=== PATIENT | male | born 1955 | race Caucasian/White ===

== ENCOUNTER → 2017-07-24 14:23 | Outpatient (CLI) | payer BC, SELFPAY ==
--- NOTE | 2017-07-24 14:29 | RAD_ITS ---
STUDY: X-RAY - RIGHT KNEE REASON FOR EXAM: Swelling, right knee strain. TECHNIQUE: 4 view(s) of the knee. COMPARISON: None. FINDINGS: Normal visualized distal femur. Normal visualized proximal tibia and fibula. Normal proximal tibiofibular articulation. There is mild joint space narrowing of the medial femorotibial compartment. Normal lateral femorotibial compartment. Normal patellofemoral articulation. There is a probable joint effusion. There is an enthesophyte at the superior pole of the patella. There are small soft tissue calcifications at the anterior aspect of the knee. There is vascular calcification. RAD/Knee 4 or More Views IMPRESSION: Mild arthrosis of the medial femorotibial compartment. Probable joint effusion. Electronically Signed: Satinder Uriostegui MD at 15:06 EDT Tel , Service support ,
== END ==
PROVIDERS: Family Provider Nurse Practitioner; PCP Nurse Practitioner; Visit Provider Nurse Practitioner
DX: M25.561 Pain in right knee (principal)
CPT/HCPCS: 73564

== ENCOUNTER → 2017-08-10 14:07 | Outpatient (CLI) | payer BC, SELFPAY ==
[2017-08-10 14:35] LABS: Potassium 3.7 mmol/L (3.5-5.1)
== END ==
PROVIDERS: Visit Provider Nurse Practitioner Gerontology
DX: E87.5 Hyperkalemia (principal)
CPT/HCPCS: 84132

== ENCOUNTER → 2019-08-27 12:34 | Outpatient (CLI) | payer BC, SELFPAY ==
--- NOTE | 2019-08-27 12:49 | RAD_ITS ---
STUDY: X-RAY - LEFT HAND REASON FOR EXAM: Male, 64 years old. bilateral hand pain TECHNIQUE: 3 view(s) of the hand. COMPARISON: None. FINDINGS: Normal radiocarpal articulation. Normal distal radioulnar joint. Normal visualized carpal bones. Normal carpal articulations Normal carpometacarpal articulation of the thumb. Normal second through fifth carpometacarpal joints. Normal metacarpi. Normal metacarpophalangeal joint of the thumb. Normal interphalangeal joint of the thumb. Normal proximal and distal phalanges of the thumb. Normal metacarpophalangeal joints of the second through fifth fingers. Normal proximal and distal interphalangeal joints of the second through fifth fingers. Normal phalanges of the second through fifth fingers. The soft tissue structures are unremarkable. RAD/Hand Min 3 Views IMPRESSION: Normal x-ray examination of the hand. Electronically Signed: Chance Knutson MD at 2:54 EDT , Service support ,
--- NOTE | 2019-08-27 12:49 | RAD_ITS ---
STUDY: X-RAY - RIGHT HAND REASON FOR EXAM: Male, 64 years old. bilateral hand pain TECHNIQUE: 3 view(s) of the hand. COMPARISON: None. FINDINGS: Normal radiocarpal articulation. Normal distal radioulnar joint. Normal visualized carpal bones. Normal carpal articulations Normal carpometacarpal articulation of the thumb. Normal second through fifth carpometacarpal joints. Normal metacarpi. Normal metacarpophalangeal joint of the thumb. Normal interphalangeal joint of the thumb. Normal proximal and distal phalanges of the thumb. Normal metacarpophalangeal joints of the second through fifth fingers. Normal proximal and distal interphalangeal joints of the second through fifth fingers. Normal phalanges of the second through fifth fingers. The soft tissue structures are unremarkable. RAD/Hand Min 3 Views IMPRESSION: Normal x-ray examination of the hand. Electronically Signed: Chance Knutson MD at 2:05 EDT , Service support ,
== END ==
PROVIDERS: PCP Nurse Practitioner; Referring Provider Nurse Practitioner; Visit Provider Nurse Practitioner
DX: I10 Essential (primary) hypertension (principal)
CPT/HCPCS: 73130

== ENCOUNTER → 2021-01-19 08:25 | Outpatient (CLI) | payer BC, SELFPAY ==
--- NOTE | 2021-01-19 08:28 | CT_ITS ---
STUDY: LOW DOSE CT LUNG CANCER SCREENING REASON FOR EXAM: Male, 65 years old. FORMER SMOKER. Patient smoked 1 pack per day for 35 years. RADIATION DOSAGE (If Supplied By Facility): CTDIvol = ( 3.02 ) mGy, DLP = ( 102.69 ) mGycm TECHNIQUE: No contrast was administered. Low dose technique was utilized (average mAS-38 and kVp 120). 1.25 mm axial source images with a slice interval of 1.25-mm were reconstructed in lung windows. 2.5 mm axial source images with a slice interval of 2.5-mm were reconstructed in lung windows. 5.0 mm axial source images with a slice interval of 5.0-mm were reconstructed in soft tissue windows. Nodule measured using lung windows on PACS and/or independent workstation with automated measurement of minimum and maximum diameter. Nodule measurement reported as average diameter rounded to the nearest whole number. Growth is defined as an increase ins size of greater than 1.5 mm. COMPARISON: None. NODULES: No suspicious nodules are seen. Emphysema: Mild degree of increased markings in the peripheral anterior lateral aspect of the left lower lobe suggestive of scarring. Endobronchial lesion: None Aorta: Unremarkable. Coronary arteries: Coronary artery calcification. Heart: Unremarkable Pulmonary artery: Unremarkable Mediastinal nodes: Small benign-appearing mediastinal lymph nodes. Other chest and abdominal findings: Degenerative changes of the thoracic spine. CT/Low Dose CT Lung Screening IMPRESSION: Lung-RADS category 2 - Continue annual screening with LDCT in 12 months. IMPORTANT NOTES FOR USE: ACR Lung-RADS Version 1.1 Assessment Categories Release Date: 2018 Category: Coded 0-4 bases on nodule(s) with highest degree of suspicion. Negative screen is defined as categories 1 and 2; a positive screen is defined as categories 3 and 4. Category 3 and 4A nodules that are unchanged on interval CT should be coded as category 2, and individuals returned to screening in 12 months. Category 4X: Category 3 or 4 nodules with additional imaging findings that increase the suspicion of lung cancer, such as spiculation, GGN that doubles in size in 1 year, enlarged lymph notes, etc. Category Modifiers: S (significant finding unrelated to lung cancer) Electronically Signed: Deshawn Chavez MD at 13:25 EDT , Service support ,
== END ==
PROVIDERS: PCP Internal Medicine; Referring Provider Internal Medicine; Visit Provider Internal Medicine
DX: Z87.891 Personal history of nicotine dependence (principal)
CPT/HCPCS: 71271

== ENCOUNTER 2021-03-10 17:21 | Outpatient (CLI) | payer BC, SELFPAY ==
[2021-03-10 17:43] VITALS: BP 130/79; PULSE 80; RESP 16; O2SAT 99; BMI 28.8
[2021-03-10] MEDS: 0.9% Saline Lock 10 ML Syringe IV (17:51)
[2021-03-10 18:26] VITALS: BP 141/75; PULSE 72; RESP 16; TEMP 37.2; O2SAT 95
[2021-03-10 19:17] VITALS: BP 143/72; PULSE 70; RESP 16; TEMP 37; O2SAT 95
== END 2021-03-10 19:28 | disposition home or self-care (01) ==
LOC: MS3OUT 17:21 → MS3 17:22
PROVIDERS: PCP Internal Medicine; Referring Provider Nurse Practitioner Adult Health; Visit Provider Nurse Practitioner Adult Health
DX: Z23 Encounter for immunization (principal); U07.1 COVID-19
CPT/HCPCS: J7050; M0245; Q0245; A4216

== ENCOUNTER 2021-05-11 15:06 | Outpatient (CLI) | payer BC, SELFPAY ==
--- NOTE | 2021-05-11 15:12 | RAD_ITS ---
STUDY: X-RAY CHEST REASON FOR EXAM: Male, 66 years old. CHEST PAIN COUGH TECHNIQUE: XR Chest 2 Views COMPARISON: Prior comparison studies are not available for review at this time. FINDINGS: There is no demonstrated pleural abnormality. Normal size heart. Normal mediastinum and leonard. Normal visualized pulmonary arteries. There is atherosclerotic calcification of the aortic arch with tortuosity. There are diffuse degenerative changes of the visualized thoracic spine. There is degenerative osteoarthritis of the bilateral shoulders. There is no demonstrated abnormality of the visualized soft tissue structures of the upper abdomen. RAD/Chest PA and Lateral IMPRESSION: There are no acute findings. Electronically Signed: Cornelius Paez MD at 15:40 EST ,
== END 2021-05-11 23:59 | disposition home or self-care (01) ==
LOC: MTRAD 15:08
PROVIDERS: PCP Internal Medicine; Referring Provider Internal Medicine; Visit Provider Internal Medicine
DX: R05.9 Cough, unspecified (principal)
CPT/HCPCS: 71046

== ENCOUNTER 2022-06-06 15:05 | Outpatient (CLI) | payer MEDICARE, OTHER, SELFPAY ==
--- NOTE | 2022-06-06 15:10 | CT_ITS ---
STUDY: CTA CHEST REASON FOR EXAM: Male, 67 years old. Elevated ddimer. Upper respiratory tract infection. RADIATION DOSAGE (If Supplied By Facility): CTDIvol = ( 8.45 ) mGy, DLP = ( 434.19 ) mGycm TECHNIQUE: The examination was performed with the intravenous administration of IV 100mL Isovue-370. Post-processing of the angiographic images was performed, with multiplanar reformation and 3D reconstruction. Individualized dose optimization techniques were used for this CT. COMPARISON: None. FINDINGS: Normal enhancement of the main pulmonary artery and right and left pulmonary arteries. Normal enhancement of the bilateral peripheral pulmonary arteries. There is no demonstrated pulmonary embolism. There is atherosclerotic calcification of the aortic arch with tortuosity. There is no demonstrated aortic dissection. There are calcifications of the coronary arteries. There are visualized mediastinal lymph nodes, which are within normal size limits, and with normal morphology. Normal hilar regions. Normal visualized trachea and bronchi. The lungs are well expanded. Normal pulmonary parenchyma. Normal pleura. Normal chest wall structures. There are degenerative changes of thoracic spine. Normal visualized upper abdomen. CT/CTA Chest W/WO Contrast IMPRESSION: No evidence of pulmonary embolism. Electronically Signed: Deshawn Chavez MD at 15:39 EDT ,
[2022-06-06 15:41] LABS: CREATININE FINGERSTICK 1.2 mg/dL (0.70-1.30); EGFR FINGERSTICK > 60.0000 mL/min (>60)
== END 2022-06-06 23:59 | disposition home or self-care (01) ==
PROVIDERS: PCP Internal Medicine; Visit Provider Internal Medicine
DX: R79.89 Other specified abnormal findings of blood chemistry (principal); R07.9 Chest pain, unspecified; I25.10 Atherosclerotic heart disease of native coronary artery without angina pectoris
CPT/HCPCS: 71275; 84484; 85379; Q9967

== ENCOUNTER → 2022-06-06 | Outpatient (CLI) | payer MEDICARE, OTHER, SELFPAY ==
[2022-06-06 12:20] LABS: Troponin-I HS 4 pg/mL (3.0-78.0)
[2022-06-06 14:36] LABS: D-Dimer Quantitative (DVT/PE) 0.73 FEU/ug/m (0.27-0.49)
== END | disposition home or self-care (01) ==
PROVIDERS: PCP Internal Medicine; Referring Provider Internal Medicine; Visit Provider Internal Medicine
DX: R07.9 Chest pain, unspecified (principal); I25.10 Atherosclerotic heart disease of native coronary artery without angina pectoris
CPT/HCPCS: 83880; 84484; 85379

== ENCOUNTER → 2022-11-24 | Outpatient (CLI) | payer MEDICARE, OTHER, SELFPAY ==
--- NOTE | 2022-11-25 09:38 | PFT ---
INTRODUCTION: The patient is a 67-year-old male who presents for pulmonary function studies secondary to a diagnosis of abnormal chest x-ray. Respiratory therapy reported good patient effort. Bronchodilators were used during testing. INTERPRETATION: Forced expiration spirometry demonstrates the presence of a mild large airways obstructive ventilatory defect. There was no significant response to aerosolized bronchodilators. Spirograms are of good quality and plateau gradually indicating slow emptying of the lungs. Body plethysmography was performed and revealed lung volumes to be within normal limits. Diffusing capacity by single breath CO was also within normal limits. IMPRESSION: Irreversible mild large airways obstructive ventilatory defect with preserved lung volumes and diffusing capacity.
== END | disposition home or self-care (01) ==
LOC: PSN 06:53
PROVIDERS: PCP Internal Medicine; Referring Provider Internal Medicine; Visit Provider Internal Medicine
DX: R93.89 Abnormal findings on diagnostic imaging of other specified body structures (principal)
CPT/HCPCS: 94060; 94726; 94729

== ENCOUNTER → 2023-06-14 | Outpatient (CLI) | payer MEDICARE, OTHER, SELFPAY ==
--- NOTE | 2023-06-14 06:48 | CT_ITS ---
STUDY: LOW DOSE CT LUNG CANCER SCREENING REASON FOR EXAM: Male, 68 years old. Former smoker. Patient smoked 2 packs per day for 40 years. RADIATION DOSAGE (If Supplied By Facility): CTDIvol = ( 4.02 ) mGy, DLP = ( 148.48 ) mGycm TECHNIQUE: No contrast was administered. Low dose technique was utilized (average mAS-38 and kVp 120). 1.25 mm axial source images with a slice interval of 1.25-mm were reconstructed in lung windows. 2.5 mm axial source images with a slice interval of 2.5-mm were reconstructed in lung windows. 5.0 mm axial source images with a slice interval of 5.0-mm were reconstructed in soft tissue windows. COMPARISON: Comparison is made with prior study January 19, 2021. NODULES: No suspicious nodules are seen. Emphysema: Mild degree of emphysematous changes. Endobronchial lesion: Unremarkable Aorta: Unremarkable CORONARY ARTERIES: Coronary artery calcification is seen. Heart: Unremarkable Pulmonary artery: Unremarkable Mediastinal nodes: Small benign-appearing mediastinal lymph nodes. Other chest and abdominal findings: CT/Low Dose CT Lung Screening IMPRESSION: Lung-RADS category 2 - Continue annual screening with LDCT in 12 months. IMPORTANT NOTES FOR USE: ACR Lung-RADS Version 1.1 Assessment Categories Release Date: 2018 Category: Coded 0-4 bases on nodule(s) with highest degree of suspicion. Negative screen is defined as categories 1 and 2; a positive screen is defined as categories 3 and 4. Category 3 and 4A nodules that are unchanged on interval CT should be coded as category 2, and individuals returned to screening in 12 months. Category 4X: Category 3 or 4 nodules with additional imaging findings that increase the suspicion of lung cancer, such as spiculation, GGN that doubles in size in 1 year, enlarged lymph notes, etc. Category Modifiers: S (significant finding unrelated to lung cancer) Electronically Signed: Deshawn Chavez MD at 14:38 EDT ,
== END | disposition home or self-care (01) ==
LOC: CT 06:48
PROVIDERS: PCP Internal Medicine; Referring Provider Internal Medicine; Visit Provider Internal Medicine
DX: Z87.891 Personal history of nicotine dependence (principal)
CPT/HCPCS: 71271

== ENCOUNTER 2023-12-15 09:07 | Emergency (ER) | payer MEDICARE, OTHER, SELFPAY ==
[2023-12-15] VITALS (7 sets, daily range): BP systolic 111–158; BP diastolic 61–83; PULSE 77–98; RESP 14–75; TEMP 36.4–36.6; O2SAT 93–100; BMI 30.2
--- NOTE | 2023-12-15 09:51 | EKG12_ITS ---
Test Reason : CP Blood Pressure : / mmHG Vent. Rate : 076 BPM Atrial Rate : 076 BPM P-R Int : 182 ms QRS Dur : 100 ms QT Int : 366 ms P-R-T Axes : 051 -17 017 degrees QTc Int : 411 ms Normal sinus rhythm with sinus arrhythmia Normal ECG Confirmed by LILI COWAN, RONNY ([id number]), metropolitan editor ANTONIO DUCKWOTRH ([id number]) on 12/19/2023 2:15:59 PM Referred By: BB Confirmed By:RONNY PEARSON MD
--- NOTE | 2023-12-15 10:01 | EDS_ITS ---
HPI History of Present Illness Chief Complaint: Chest Pain Informant: patient and spouse/S.O. Narrative Narrative: Patient woke up with chest tightness retrosternal maybe more to the left 2 or 3 hours prior to evaluation. States it hurts worse to take a deep breath. He is not really dyspneic. States he is having lower abdominal pain and nausea and vomiting as well. It is nonbloody. He states this happens several days ago and he was in [place], he was seen in the ER there and had a cardiac workup including several sets of cardiac enzymes that were negative, nitroglycerin made it better, but in the end he was sent home on famotidine and another GI medication. No history of heart problems but he has COPD not on home oxygen, he does not feel like he is having a flareup. He had a prior herniorrhaphy, no other abdominal surgeries in the past. [facility] Medical History (Updated 12/15/23 @ 13:[address] All Santillan MD) Hypercholesterolemia Atherosclerosis of [place] coronary artery Diabetes mellitus Benign prostatic hyperplasia Hypercalcemia Former smoker COPD (chronic obstructive pulmonary disease) BPPV (benign paroxysmal positional vertigo) Hearing loss in right ear Knee pain Shoulder pain HTN (hypertension) Home Medications ?Medication ?Instructions ?Recorded ?Last Taken ?Type amlodipine 10 mg tablet 10 mg PO DAILY 05/01/20 Unknown History hydrochlorothiazide 25 mg tablet 25 mg PO DAILY 05/01/20 Unknown History losartan 25 mg tablet 25 mg PO DAILY 05/01/20 Unknown History aspirin 81 mg tablet,delayed 81 mg PO DAILY 06/14/23 Unknown History release tamsulosin 0.4 mg capsule 0.4 mg PO DAILY 06/14/23 Unknown History famotidine 20 mg tablet (Acid 20 mg PO BID 12/13/23 Unknown History [employer]ment [employer] (famotidine)) fluticasone fur. 100 mcg-umeclid 1 inh inhalation Q24H 12/13/23 Unknown History 62.5 mcg-vilant 25 mcg inhalat.powder (Trelegy Ellipta) hydroxyzine pamoate 25 mg capsule 25 mg PO TID PRN 12/13/23 Unknown History pantoprazole 40 mg tablet,delayed 40 mg PO QDAY 12/13/23 Unknown History release rosuvastatin 10 mg tablet 10 mg PO QDAY 12/13/23 Unknown History amoxicillin 875 mg-potassium 875 mg PO Q12H #20 TABLETS 12/15/23 Unknown Rx clavulanate 125 mg tablet ondansetron 8 mg disintegrating 8 mg PO Q8H PRN nausea and 12/15/23 Unknown Rx tablet vomiting #15 tabs Allergy/AdvReac Type Severity Reaction Status Date / Time No Known Allergies Allergy Verified 06/30/23 09:56 Family History Other Alzheimers disease Cancer Multiple sclerosis Surgical History (Updated 12/15/23 @ 10:[address] All Santillan MD) History of herniorrhaphy History of back surgery Social History Smoking Status: Former smoker quit date: 03/20/06 ROS ROS ED Constitutional Constitutional ED: Denies chills or fever(s) Eyes Eyes: Denies change in vision or diplopia ENT ENT ED: Denies rhinorrhea or sore throat Cardiovascular Cardiovascular: Reports chest pain; Denies palpitations Respiratory/Chest Respiratory/Chest: Denies cough or dyspnea Gastrointestinal Gastrointestinal: Reports abdominal pain, nausea, vomiting and other Details: Decreasing bowel movements recently ; Denies diarrhea Genitourinary Genitourinary ED: Denies dysuria or hematuria Musculoskeletal Musculoskeletal: Denies back pain or neck pain Integumentary Denies abscess or rash Neurologic Neurologic: Denies headache(s), paresthesias or weakness Psychiatric Psychiatric: Denies anxiety or suicidal thoughts EXAM Physical Exam Const Vital Signs: 12/15/23 09:11 12/15/23 09:51 12/15/23 10:07 Temperature 97.5 F L Temperature Source Oral Pulse Rate 82 79 Respiratory Rate 18 14 Blood Pressure 158/82 H 138/83 H Blood Pressure Mean 107 101 Pulse Ox 100 98 Oxygen Delivery Method Room Air Room Air Room Air 12/15/23 11:00 12/15/23 12:00 12/15/23 13:00 Temperature Temperature Source Pulse Rate 77 78 77 Respiratory Rate 14 14 14 Blood Pressure 133/73 H 111/64 122/61 H Blood Pressure Mean 93 79 81 Pulse Ox 93 93 94 Oxygen Delivery Method Room Air Room Air Positive well nourished and well developed Constitutional Narrative: Actively vomiting nonbilious clear fluid couple times during exam. NAD. General Appearance ED: well developed and NAD HEENT Reports moist mucous membranes normocephalic and atraumatic Eyes PERRL and EOMs intact bilaterally Neck full ROM and supple Chest Wall inspection of chest normal and palpation of chest normal Resp normal respiratory effort and clear to auscultation bilaterally Cardio regular rate, regular rhythm and no murmurs Rate: Negative for tachycardic GI non-distended GI Narrative: Hypoactive bowel sounds. Tender in the left lower quadrant no guarding or rebound. Otherwise benign abdomen. Palpation: soft Back/Spine no CVA tenderness General Back: other FROM Extremity normal to inspection General Extremety ED: Negative for edema, pulses abnormal or tenderness General Extremity: Negative for edema or pulses abnormal Neuro oriented x3, CN's II-XII intact bilaterally and no sensory deficits noted Sensorium / Orientation: awake and alert Motor Exam: strength 5/5 throughout Skin no rashes or lesions noted and no wounds MDM MDM MDM Narrative Medical decision making narrative: I also am suspicious of a GI etiology, spouse and the patient concerned about a bowel obstruction which she has never had before. I think it is certainly reasonable to evaluate for that to obtain a CT, but prior to sending him to CT with IV contrast obtaining a D-dimer to evaluate whether I need a CTA of the chest or not. His EKG is normal. His D-dimer returned normal, obviating the need for CT angiography of the chest. I did do a 1 view chest x-ray which is normal on my interpretation showing no pneumonia, radiology in agreement. He does not have a high white blood count he has a slight trend toward leftward shift no significant bandemia. CT of the abdomen pelvis was performed with IV contrast I reviewed the images and report which I agree with, it is consistent with uncomplicated sigmoid diverticulitis. There is no perforation or abscess. No bowel obstruction. Patient is doing much better after IV fluids, Zofran, and a GI cocktail. We have 2 separate troponin measurements that are both in the single digits, well within normal limits and a normal EKG, given that I do think his discomfort was probably esophageal in etiology. He is feeling well, I offered admission but he declines and is comfortable going home. Will start him on Augmentin, I replaced him of his potassium, and I will have him follow-up with his outpatient physician. States he already has an appointment early December. Lab Data Attestation: I reviewed the patient's lab results. Labs: Laboratory Results - last 24 hr 12/15/23 12/15/23 10:00 12:18 WBC 10.3 RBC 5.08 Hgb 14.9 Hct 43.5 MCV 85.6 MCH 29.3 MCHC 34.3 RDW Std Deviation 41.7 RDW Coeff of Prema 13.3 Plt Count 256 MPV 10.2 Immature Gran % (Auto) 0.400 Neut % (Auto) 84.0 H Lymph % (Auto) 10.1 L [place] % (Auto) 5.0 Eos % (Auto) 0.1 Baso % (Auto) 0.4 Absolute Neuts (auto) 8.6 H Absolute Lymphs (auto) 1.04 Nucleated RBC % 0 D-Dimer Quant (PE/DVT) 0.47 Sodium 136 Potassium 3.0 L Chloride 101 Carbon Dioxide 25.0 Anion Gap 10 BUN 21 H Creatinine 0.99 Estim Creat Clear Calc 79.02 Est GFR (MDRD) Af Amer 97 Est GFR (MDRD) Non-Af 80 BUN/Creatinine Ratio 21.2 H Glucose 132 H Calcium 9.8 Troponin I High Sens 6 6 Radiography Diagnostic Testing: Clinical Impression(s) from Imaging Studies Chest X-Ray 12/15/23 10:10 IMPRESSION: No acute abnormality is seen. Electronically Signed: Deshawn Chavez MD at 10:32 EDT , Abdomen/Pelvis CT 12/15/23 10:44 IMPRESSION: Acute sigmoid diverticulitis without evidence of abscess or perforation. Electronically Signed: Stef Ellington MD at 11:50 EDT , Rhythm Strip Rhythm Strip: Sinus Rhythm Rate: 80 Ectopy: None EKG Initial EKG: Attestation: I personally reviewed and interpreted this EKG as follows: Interpretation: Sinus Rhythm and No Acute Injury Pattern Discharge Plan Triage Chief Complaint: Chest Pain ED Provider: All Santillan Dx/Rx/DC Orders Clinical Impression: Diverticulitis of sigmoid colon, Chest pain, non-cardiac Instructions: Diverticulitis Dc Prescriptions: New ondansetron 8 mg tablet,disintegrating 8 mg PO Q8H PRN (Reason: nausea and vomiting) Qty: 15 0RF amoxicillin-pot clavulanate 875-125 mg tablet 875 mg PO Q12H Qty: 20 0RF No Action amlodipine 10 mg tablet 10 mg PO DAILY Patient Comments: Take 1 tablet by mouth daily losartan 25 mg tablet 25 mg PO DAILY hydrochlorothiazide 25 mg tablet 25 mg PO DAILY tamsulosin 0.4 mg capsule 0.4 mg PO DAILY aspirin 81 mg tablet,delayed release (DR/EC) 81 mg PO DAILY rosuvastatin 10 mg tablet 10 mg PO QDAY Patient Comments: TAKE 1 TABLET BY MOUTH DAILY AT BEDTIME Trelegy Ellipta 100-62.5-25 mcg blister with device 1 inh inhalation Q24H pantoprazole 40 mg tablet,delayed release (DR/EC) 40 mg PO QDAY hydroxyzine pamoate 25 mg capsule 25 mg PO TID PRN famotidine [Acid Surgical [employer]ment [employer]itter (famotidine)] 20 mg tablet 20 mg PO BID Primary Care Provider: Diana Roca Referrals: Diana Roca DO [Primary Care Provider] - Keep Vince appointment Print Language: Khmer Disposition Disposition: Home, Self Care
[2023-12-15] MEDS: 0.9% Normal Saline (1000mL) 1,000 ML 999 ML IV (10:03)
[2023-12-15] MEDS: Morphine 4 MG/ML Syringe IV (10:03)
[2023-12-15] MEDS: Lidocaine 2% Viscous15 ML UDC 15 ML PO (10:03)
[2023-12-15] MEDS: Mag Hydrox/Al Hydrox/Simeth 30 ML UDC PO (10:03)
[2023-12-15] MEDS: Ondansetron 4 MG/2 ML Vial IV (10:03)
--- NOTE | 2023-12-15 10:10 | RAD_ITS ---
STUDY: X-RAY CHEST REASON FOR EXAM: Male, 68 years old. Chest pain TECHNIQUE: Single AP portable view of the chest. COMPARISON: Comparison is made with prior study June 06, 2022. FINDINGS: EKG electrodes are seen. The lungs are clear and expanded. There is no demonstrated pleural abnormality. Normal size heart. Normal mediastinum and leonard. Normal visualized pulmonary arteries. There is atherosclerotic tortuosity of the aortic arch and descending thoracic aorta. There are diffuse degenerative changes of the visualized thoracic spine. Normal visualized ribs, clavicles, and shoulders. There is no demonstrated abnormality of the visualized soft tissue structures of the upper abdomen. RAD/Chest 1 View (Portable) IMPRESSION: No acute abnormality is seen. Electronically Signed: Deshawn Chavez MD at 10:32 EDT ,
[2023-12-15 10:12] LABS: Absolute Lymphocyte Count 1.04 X10^3/uL (0.83-4.51); Absolute Neutrophil Count 8.6 X10^3/uL (2.0-7.7); Basophil# 0.04 X10^3/uL; Basophil% 0.4 % (0-1); Eosinophil# 0.01 X10^3/uL; Eosinophils% 0.1 % (0-5); Hematocrit 43.5 % (40-54); Hemoglobin 14.9 g/dL (13.0-16.5); Lymphocyte # 1.04 X10^3/ul (0.83-4.51); Lymphocyte % 10.1 % (19-41); Mean Corp Hgb Conc 34.3 g/dL (32-36); Mean Corpuscular Hgb 29.3 pg (27.0-32.0); Mean Corpuscular Volume 85.6 fL (80-94); Mean Platelet Vol. 10.2 fl (6.2-12.0); Monocyte# 0.51 X10^3/uL; NRBC Flagged by Analyzer 0 % (0-5); Neutrophil # 8.64 X10^3/uL (2.7-7.7); Platelet Count 256 K/mm3 (150-450); RBC Distribution Width CV 13.3 % (11.6-14.6); RBC Distribution Width SD 41.7 fl (35.1-43.9); Red Blood Count 5.08 M/mm3 (4.6-6.2); White Blood Count 10.3 K/mm3 (4.4-11.0)
[2023-12-15 10:27] LABS: D-Dimer Quantitative (DVT/PE) 0.47 FEU/ug/m (0.27-0.49)
[2023-12-15 10:36] LABS: Anion Gap 10 (5-15); BUN 21 mg/dL (7-18); BUN/Creat Ratio 21.2 RATIO (10-20); Calcium,Total 9.8 mg/dL (8.5-10.1); Chloride 101 mmol/L (98-107); Creatinine, Serum 0.99 mg/dL (0.70-1.30); EST Glomerular Filtration Rate 80 mL/min (>60); Est Glom Filt Rate - Afr Amer 97 mL/min (>60); Estimated Creatinine Clearance 79.02 ml/min; Glucose 132 mg/dL (74-106); Sodium Level 136 mmol/L (136-145); Troponin-I HS (w/2H Reflex) 6 pg/mL (3.0-78.0)
--- NOTE | 2023-12-15 10:44 | CT_ITS ---
EXAM: CT ABDOMEN AND PELVIS WITH INTRAVENOUS CONTRAST CLINICAL INDICATION: LLQ pain, n/v TECHNIQUE: Helically acquired images were obtained of the abdomen and pelvis with intravenous contrast. This CT exam was performed using one or more of the following dose reduction techniques: automated exposure control, adjustment of the mA and/or kV according to patient size, and/or use of iterative reconstruction technique. CONTRAST: IV 100mL Isovue-300 COMPARISON: No relevant prior studies available. FINDINGS: LOWER THORAX: Normal. Lung bases are clear. No cardiomegaly. No pericardial effusion. ABDOMEN: LIVER: Normal. Homogeneous. No focal mass. GALLBLADDER AND BILE DUCTS: Normal. No calcified gallstones. No gallbladder distention or wall edema. No intra- or extrahepatic biliary ductal dilation. PANCREAS: Normal. No focal cystic or solid mass. SPLEEN: Normal. Normal size without focal cystic or solid mass. ADRENALS: Normal. No nodules. KIDNEYS AND URETERS: Normal. Normal renal size and position. No hydronephrosis. STOMACH AND BOWEL: There is mild wall thickening of the sigmoid colon associated with adjacent fat stranding consistent with acute diverticulitis. No evidence of abscess or perforation. PELVIS: APPENDIX: Appendix is visualized and normal in appearance. BLADDER: Normal. REPRODUCTIVE: Unremarkable as visualized. No mass. ABDOMEN and PELVIS: INTRAPERITONEAL SPACE: Normal. No ascites or other fluid collection. No free air. BONES/JOINTS: No suspicious lytic or blastic abnormality. SOFT TISSUES: Normal. No discrete abdominal or pelvic wall hernia. VASCULATURE: Normal. Abdominal aorta is non-dilated. LYMPH NODES: Normal. No enlarged lymph nodes. CT/Abdomen/Pelvis W IV Cont ONLY IMPRESSION: Acute sigmoid diverticulitis without evidence of abscess or perforation. Electronically Signed: Stef Ellington MD at 11:50 EDT ,
[2023-12-15 12:08] LABS: Reflex Troponin-HS? (from REC) Y
[2023-12-15 12:43] LABS: Troponin-I HS 6 pg/mL (3.0-78.0)
[2023-12-15] MEDS: Amox/Clavulanate 875 MG Tablet PO (13:15)
[2023-12-15] MEDS: Potassium Chloride 10mEq/100mL 10 MEQ/100 ML IV.SOLN. 100 MEQ IV BOLUS (13:16)
== END 2023-12-15 14:25 | disposition home or self-care (01) ==
PROVIDERS: Emergency Provider Emergency Medicine; PCP Internal Medicine; Visit Provider Emergency Medicine
DX: K57.32 Diverticulitis of large intestine without perforation or abscess without bleeding (principal); J44.9 Chronic obstructive pulmonary disease, unspecified; E11.9 Type 2 diabetes mellitus without complications; R07.89 Other chest pain; E78.00 Pure hypercholesterolemia, unspecified; I10 Essential (primary) hypertension; I25.10 Atherosclerotic heart disease of native coronary artery without angina pectoris; Z87.891 Personal history of nicotine dependence; Z79.899 Other long term (current) drug therapy; Z79.82 Long term (current) use of aspirin; N40.0 Benign prostatic hyperplasia without lower urinary tract symptoms
CPT/HCPCS: 71045; 74177; 80048; 84484; 85025; 85379; 93005; 96361; 96365; 96375; 99284; J7030; Q9967; A4216; J2405

== ENCOUNTER → 2024-06-25 | Outpatient (CLI) | payer MEDICARE, OTHER, SELFPAY ==
[2024-06-25 09:37] LABS: Absolute Lymphocyte Count 1.98 X10^3/uL (0.83-4.51); Absolute Neutrophil Count 3.9 X10^3/uL (2.0-7.7); Basophil# 0.06 X10^3/uL; Basophil% 0.9 % (0-1); Eosinophil# 0.11 X10^3/uL; Eosinophils% 1.7 % (0-5); Hematocrit 47.6 % (40-54); Hemoglobin 16.4 g/dL (13.0-16.5); Lymphocyte # 1.98 X10^3/ul (0.83-4.51); Lymphocyte % 29.8 % (19-41); Mean Corp Hgb Conc 34.5 g/dL (32-36); Mean Corpuscular Hgb 30.3 pg (27.0-32.0); Mean Corpuscular Volume 87.8 fL (80-94); Mean Platelet Vol. 10.1 fl (6.2-12.0); Monocyte# 0.55 X10^3/uL; Monocyte% 8.3 % (0-10); NRBC Flagged by Analyzer 0 % (0-5); Neutrophil # 3.92 X10^3/uL (2.7-7.7); Platelet Count 298 K/mm3 (150-450); RBC Distribution Width CV 13.2 % (11.6-14.6); RBC Distribution Width SD 42.8 fl (35.1-43.9); Red Blood Count 5.42 M/mm3 (4.6-6.2); White Blood Count 6.6 K/mm3 (4.4-11.0)
[2024-06-25 11:22] LABS: ALB/GLOB Ratio 1.3 RATIO (0.9-2.4); AST(SGOT) 23 U/L (<=37); Alanine Aminotransfer ALT/SGPT 17 U/L (<=46); Albumin, Serum 4.6 g/dL (3.4-4.8); Alkaline Phosphatase 68 U/L (40-129); Anion Gap 14 (5-15); BUN 16 mg/dL (4-19); BUN/Creat Ratio 14.8 RATIO (10-20); Calcium,Total 9.8 mg/dL (7.6-11.0); Carbon Dioxide 24.5 mmol/L (21.0-32.0); Chloride 101 mmol/L (98-108); Cholesterol 221 mg/dL (<=200); EST Glomerular Filtration Rate 73 (>60); Globulin 3.4 g/dL (2.2-4.2); Glucose 113 mg/dL (70-99); High Density Lipoprotein 69 mg/dL; Low Density Lipoprotein Calc. 137 mg/dL; Protein, Total 7.9 g/dL (5.9-8.4); Sodium Level 139 mmol/L (133-145); Total Bilirubin 0.42 mg/dL (0.00-1.30); Triglycerides 78 mg/dL; Very Low Density Lipoprotein 16 mg/dL (5-40); cholesterol:hdl ratio screen 3.21
== END | disposition home or self-care (01) ==
LOC: LAB 08:49
PROVIDERS: PCP Internal Medicine; Referring Provider Nurse Practitioner Gerontology; Visit Provider Nurse Practitioner Gerontology
DX: E78.00 Pure hypercholesterolemia, unspecified (principal); R53.83 Other fatigue; I10 Essential (primary) hypertension
CPT/HCPCS: 36415; 80053; 80061; 84443; 85025

== ENCOUNTER 2024-09-16 11:10 | Emergency (ER) | payer MEDICARE, OTHER, SELFPAY ==
[2024-09-16 11:11] VITALS: BP 162/82; PULSE 72; RESP 18; TEMP 36.4; O2SAT 100; BMI 30.9
--- NOTE | 2024-09-16 11:22 | CT_ITS ---
PROCEDURE: ABDOMEN/PELVIS W IV CONT ONLY 09/16/2024 REASON FOR EXAM: LEFT LOWER QUADRANT ABDOMINAL PAIN TECHNIQUE: ABDOMEN/PELVIS W IV CONT ONLY Coronal and Sagittal reconstruction series were provided. CONTRAST: 100 cc Isovue 300 One or more dose reduction techniques were used (e.g., Automated exposure control, adjustment of the mA and/or kV according to patient size, use of iterative reconstruction technique. RADIATION DOSE SUMMARY: DLP: 1088.21 mGycm COMPARISON: December 15, 2023 FINDINGS: Lung bases: Clear Liver: Unremarkable Gallbladder: Unremarkable Spleen: Unremarkable Pancreas: Unremarkable Adrenals: Unremarkable Kidneys: Unremarkable Bladder: Reproductive Organs: The bladder is not distended. There is circumferential bladder wall thickening to 0.6 cm, which may be partly secondary to lack of distention. The prostate has a nodular appearance with calcifications noted. A hydrocele is visible in the scrotum on the right and left. Bowel: The small bowel loops are nondistended. There is diverticulosis of the distal descending and sigmoid colon with no definite acute diverticulitis. Appendix: The appendix is normal in appearance. Lymph nodes: There is no pathologic adenopathy by size criteria. Vasculature: Atherosclerotic calcifications are noted. Peritoneum / Retroperitoneum: There is no free air or free fluid. Bones: There is no acute bony abnormality. CT/Abdomen/Pelvis W IV Cont ONLY IMPRESSION: There is circumferential bladder wall thickening to 0.6 cm, which may be partly secondary to lack of distention. The prostate has a nodular appearance with calcifications noted. Consider PSA correlation. There is diverticulosis of the distal descending and sigmoid colon with no defi nite acute diverticulitis. A hydrocele is visible in the scrotum on the right and left. [facility]
--- NOTE | 2024-09-16 11:27 | EX.ED.DYSGE1 ---
HPI History of Present Illness Chief Complaint: Abd Pain Narrative Narrative: Chief complaint and HPI: Left lower quadrant abdominal pain. 69-year-old male with past medical history of COPD, DM2, HTN, and history of diverticulitis presents for evaluation of left lower quadrant abdominal pain. Onset this morning. Associated symptoms are nausea, vomiting, diarrhea. Patient states it feels similar to his previous diverticulitis. Review of systems: See HPI Medications: As listed on the chart Allergies: As listed on the chart PFSH: Per chart Vital signs: As listed on the chart. Reviewed. Physical exam: Gen: A&O x3, NAD Head: Normocephalic, atraumatic Eyes: No sclera icterus, conjunctiva clear ENT: Moist mucous membranes Neck: Trachea midline, No JVD CV: RRR, no murmurs, no peripheral edema Resp: Lungs CTA BL, no w/r/c GI: Abd soft, non-distended, left lower quadrant abdominal pain, no rebound or rigidity : No CVA tenderness Musc: Full ROM, no deformity Skin: Warm, dry Neuro: Alert, oriented, grossly intact, sensation intact Psych: Cooperative, appropriate mood and affect [facility] Medical History Hypercholesterolemia Atherosclerosis of [place] coronary artery Diabetes mellitus Benign prostatic hyperplasia Hypercalcemia Former smoker COPD (chronic obstructive pulmonary disease) BPPV (benign paroxysmal positional vertigo) Hearing loss in right ear Knee pain Shoulder pain HTN (hypertension) Home Medications ?Medication ?Instructions ?Recorded ?Last Taken ?Type amlodipine 10 mg tablet 10 mg PO DAILY 05/01/20 09/16/24 History hydrochlorothiazide 25 mg tablet 25 mg PO DAILY 05/01/20 09/16/24 History losartan 25 mg tablet 25 mg PO DAILY 05/01/20 09/16/24 History tamsulosin 0.4 mg capsule 0.4 mg PO DAILY 06/14/23 09/16/24 History fluticasone fur. 100 mcg-umeclid 1 inh inhalation Q24H 12/13/23 09/15/24 History 62.5 mcg-vilant 25 mcg inhalat.powder (Trelegy Ellipta) ondansetron 8 mg disintegrating 8 mg PO Q8H PRN nausea and 12/15/23 Unknown Rx tablet vomiting #15 tabs aspirin 81 mg tablet,delayed 81 mg PO QDAY 04/08/25 06/29/25 History release (Adult Aspirin Regimen) ezetimibe 10 mg tablet (Zetia) 10 mg PO QDAY #30 tabs 06/25/24 Unknown Rx amoxicillin 875 mg-potassium 1 tab PO BID 7 days #14 tabs 09/16/24 Unknown Rx clavulanate 125 mg tablet ondansetron 4 mg disintegrating 4 mg PO Q8H PRN PRN Nausea #10 tabs 09/16/24 Unknown Rx tablet Allergy/AdvReac Type Severity Reaction Status Date / Time No Known Allergies Allergy Verified 09/16/24 11:14 Family History Other Alzheimers disease Cancer Multiple sclerosis Surgical History History of herniorrhaphy History of back surgery Social History Smoking Status: Former smoker quit date: 03/20/06 EXAM Physical Exam Const Vital Signs: 09/16/24 11:11 09/16/24 12:46 09/16/24 13:54 Temperature 97.6 F L 97.6 F L Temperature Source Oral Pulse Rate 72 72 72 Respiratory Rate 18 18 18 Blood Pressure 162/82 H 174/73 H 174/73 H Blood Pressure Mean 108 106 106 Pulse Ox 100 100 100 Oxygen Delivery Method Room Air Room Air MDM MDM MDM Narrative Medical decision making narrative: 69-year-old male with past medical history of COPD, DM2, HTN, and history of diverticulitis presents for evaluation of left lower quadrant abdominal pain. Onset this morning. Associated symptoms are nausea, vomiting, diarrhea. States it feels similar to his diverticulitis in the past. Differential diagnosis includes but is not limited to diverticulitis, viral gastroenteritis, urolithiasis, UTI. NS bolus, morphine, Zofran ordered for symptoms. Laboratory workup ordered including CT abdomen pelvis. CBC without leukocytosis or anemia. Platelets unremarkable. BMP unremarkable except for mild hyperglycemia. Patient is a diabetic. UA negative for UTI. CT abdomen pelvis shows circumferential bladder wall thickening, which may be partially secondary to lack of distention. Prostate has a nodular appearance with calcifications. This will need to be further worked up outpatient. There is diverticulosis of the descending and sigmoid colon without acute diverticulitis. Patient has a hydrocele in the scrotum on the right and left. On reevaluation, patient states his pain has improved although is still present. He feels that his anxiety is contributing. Requesting for some Ativan. This was ordered. At this point in time, no clear etiology for patient's symptoms however given onset yesterday, could be early diverticulitis. Patient states this feels similar to his previous episode. Will give Augmentin x 7 days. Zofran as needed for nausea. Follow-up with PCP. Return precautions explained. He confirmed understanding the plan. He was educated that he needs to follow-up for his prostate enlargement. He confirmed understanding. Impression: 1. Left lower quadrant abdominal pain, possibly early diverticulitis 2. Nausea, vomiting, diarrhea 3. Enlarged prostate, needs further worked up outpatient Lab Data Labs: Laboratory Results - last 24 hr 09/16/24 09/16/24 11:30 12:13 WBC 8.8 RBC 5.06 Hgb 15.5 Hct 44.0 MCV 87.0 MCH 30.6 MCHC 35.2 RDW Std Deviation 43.3 RDW Coeff of Prema 13.7 Plt Count 288 MPV 9.6 Immature Gran % (Auto) 0.500 Neut % (Auto) 76.9 H Lymph % (Auto) 16.6 L [place] % (Auto) 5.1 Eos % (Auto) 0.3 Baso % (Auto) 0.6 Absolute Neuts (auto) 6.8 Absolute Lymphs (auto) 1.46 Nucleated RBC % 0 Sodium 137 Potassium 3.8 Chloride 100 Carbon Dioxide 23.1 Anion Gap 14 BUN 13 Creatinine 0.93 Estim Creat Clear Calc 83.78 Est GFR (MDRD) Non-Af 89 BUN/Creatinine Ratio 13.5 Glucose 131 H Calcium 9.8 Urine Color Yellow Urine Clarity Clear Urine pH 8.0 Ur Specific [place] 1.015 Urine Protein Negative Urine Glucose (UA) Normal Urine Ketones Negative Urine Occult Blood Negative Urine Nitrite Negative Urine Bilirubin Negative Urine Urobilinogen Normal Ur Leukocyte Esterase Negative Urine RBC 0 SEEN Urine WBC 0 SEEN Ur Squamous Epith Cells 0 SEEN Urine Bacteria 0 SEEN Urine Mucus 0 SEEN Radiography Diagnostic Testing: Clinical Impression(s) from Imaging Studies Abdomen/Pelvis CT 09/16/24 11:22 IMPRESSION: There is circumferential bladder wall thickening to 0.6 cm, which may be partly secondary to lack of distention. The prostate has a nodular appearance with calcifications noted. Consider PSA correlation. There is diverticulosis of the distal descending and sigmoid colon with no definite acute diverticulitis. A hydrocele is visible in the scrotum on the right and left. Reading [facility] T[facility] Chief Complaint: Abd Pain ED Provider: Desmond Vieira Dx/Rx/DC Orders Clinical Impression: Abdominal pain Instructions: ED Abdominal Pain Unkn Cause Male... Prescriptions: New amoxicillin-pot clavulanate 875-125 mg tablet 1 tab PO BID 7 Days Qty: 14 0RF ondansetron 4 mg tablet,disintegrating 4 mg PO Q8H PRN PRN (Reason: Nausea) Qty: 10 0RF No Action amlodipine 10 mg tablet 10 mg PO DAILY Patient Comments: Take 1 tablet by mouth daily losartan 25 mg tablet 25 mg PO DAILY hydrochlorothiazide 25 mg tablet 25 mg PO DAILY tamsulosin 0.4 mg capsule 0.4 mg PO DAILY Trelegy Ellipta 100-62.5-25 mcg blister with device 1 inh inhalation Q24H aspirin [Adult Aspirin Regimen] 81 mg tablet,delayed release (DR/EC) 81 mg PO QDAY ondansetron 8 mg tablet,disintegrating 8 mg PO Q8H PRN (Reason: nausea and vomiting) Qty: 15 0RF ezetimibe [Zetia] 10 mg tablet 10 mg PO QDAY Qty: 30 11RF Primary Care Provider: Diana Roca Referrals: Diana Roca DO [Primary Care Provider] - 3-5 Days Activity Restrictions/Additional Instructions: Follow-up with your primary care physician. Return back to the ED if symptoms change or worsen. No clear reason for your pain at this time however may be early diverticulitis which is why the antibiotics were written. Print Language: Nepali Disposition Disposition: Home, Self Care Discharge Date/Time: 09/16/24 13:55
[2024-09-16 11:34] LABS: Absolute Lymphocyte Count 1.46 X10^3/uL (0.83-4.51); Absolute Neutrophil Count 6.8 X10^3/uL (2.0-7.7); Basophil# 0.05 X10^3/uL; Basophil% 0.6 % (0-1); Eosinophil# 0.03 X10^3/uL; Eosinophils% 0.3 % (0-5); Hemoglobin 15.5 g/dL (13.0-16.5); Lymphocyte # 1.46 X10^3/ul (0.83-4.51); Lymphocyte % 16.6 % (19-41); Mean Corp Hgb Conc 35.2 g/dL (32-36); Mean Corpuscular Hgb 30.6 pg (27.0-32.0); Mean Platelet Vol. 9.6 fl (6.2-12.0); Monocyte# 0.45 X10^3/uL; Monocyte% 5.1 % (0-10); NRBC Flagged by Analyzer 0 % (0-5); Neutrophil # 6.79 X10^3/uL (2.7-7.7); Neutrophil % 76.9 % (47-70); Platelet Count 288 K/mm3 (150-450); RBC Distribution Width CV 13.7 % (11.6-14.6); RBC Distribution Width SD 43.3 fl (35.1-43.9); Red Blood Count 5.06 M/mm3 (4.6-6.2); White Blood Count 8.8 K/mm3 (4.4-11.0)
[2024-09-16] MEDS: Ondansetron 4 MG/2 ML Vial IV (11:38)
[2024-09-16] MEDS: Morphine 4 MG/ML Syringe IV (11:39)
[2024-09-16] MEDS: 0.9% Normal Saline (1000mL) 1,000 ML 999 ML IV (11:39)
[2024-09-16 12:02] LABS: Anion Gap 14 (5-15); BUN 13 mg/dL (4-19); BUN/Creat Ratio 13.5 RATIO (10-20); Calcium,Total 9.8 mg/dL (7.6-11.0); Carbon Dioxide 23.1 mmol/L (21.0-32.0); Chloride 100 mmol/L (98-108); Creatinine, Serum 0.93 mg/dL (0.70-1.20); EST Glomerular Filtration Rate 89 (>60); Estimated Creatinine Clearance 83.78 ml/min (50-250); Glucose 131 mg/dL (70-99); Potassium 3.8 mmol/L (3.3-5.1); Sodium Level 137 mmol/L (133-145)
[2024-09-16 12:19] LABS: Bacteria 0 SEEN /hpf (None Seen); Mucous, Urine 0 SEEN /hpf (<or=2+); Red Blood Cells-Urine 0 SEEN /hpf (0-5); Squamous Epithelial Cells - UA 0 SEEN /hpf (0-5); White Blood Cells 0 SEEN /hpf (0-5)
[2024-09-16 12:25] LABS: Color, Urine Yellow (Yellow); Glucose, Dipstick Normal (Normal); Ketone-Dipstick Negative (Negative); Leukocyte Esterase-Dipstick Negative /ul (Negative); Nitrite-Dipstick Negative (Negative); Occult Blood-Urine Negative /ul (Negative); Protein-Dipstick Negative (Negative); Specific Gravity, Urine 1.015 (1.002-1.030); Urine Bilirubin Dipstick Negative (Negative); Urine Clarity Clear (Clear); Urine Urobilinogen Normal (Normal)
[2024-09-16] MEDS: Ketorolac 15 MG/ML Vial IV (12:41)
[2024-09-16] MEDS: Metoclopramide 10 MG/2 ML Vial 5 MG IV (12:41)
[2024-09-16 12:46] VITALS: BP 174/73; PULSE 72; RESP 18; O2SAT 100
[2024-09-16] MEDS: Lorazepam 2 MG/ML WCH Syringe 0.5 MG IV (13:10)
[2024-09-16 13:54] VITALS: BP 174/73; PULSE 72; RESP 18; TEMP 36.4; O2SAT 100
== END 2024-09-16 13:55 | disposition home or self-care (01) ==
PROVIDERS: Emergency Provider Surgery; PCP Internal Medicine; Visit Provider Surgery
DX: R10.32 Left lower quadrant pain (principal); J44.9 Chronic obstructive pulmonary disease, unspecified; E11.9 Type 2 diabetes mellitus without complications; R11.2 Nausea with vomiting, unspecified; I25.10 Atherosclerotic heart disease of native coronary artery without angina pectoris; N40.2 Nodular prostate without lower urinary tract symptoms; Z87.891 Personal history of nicotine dependence; I10 Essential (primary) hypertension; E78.00 Pure hypercholesterolemia, unspecified; R19.7 Diarrhea, unspecified; Z79.899 Other long term (current) drug therapy; N40.0 Benign prostatic hyperplasia without lower urinary tract symptoms; Z79.51 Long term (current) use of inhaled steroids; Z79.82 Long term (current) use of aspirin; F41.9 Anxiety disorder, unspecified
CPT/HCPCS: 74177; 80048; 81001; 85025; 96361; 96374; 96375; 99285; Q9967; A4216; J2405

== ENCOUNTER → 2025-02-11 | Outpatient (CLI) | payer MEDICARE, OTHER, SELFPAY ==
--- OUTSIDE RECORDS SUMMARY | 2025-02-11 06:58 | XMS RPT_ITS | CCD ---
Author Organization [facility] Care Team Providers Care Aircraft Captain Name Role Phone LindsayadinbinaMaria Elena E Unavailable Milton Farah Unavailable Shayan Kwon Unavailable Nicolás Kline Unavailable [phone] Pk Bone Unavailable Unavailable Unavailable Unavailable Unavailable Unavailable Pk Bone Unavailable Unavailable Marlen Ruiz Unavailable Unavailable Gravius, Nella Unavailable Unavailable Unavailable Unavailable Pk Parikh Unavailable Unavailable Diana Randall Unavailable Odalys Rucker Unavailable Maria Elena Pulido Unavailable Coni Jj Unavailable Unavailable Wil Crawford Unavailable Diana Randall Primary Care Provider Nicole Whalen Unavailable Unavailable Diana Randall DO Unavailable Shayan Kwon MD Unavailable Pk Ruckerma Unavailable Eliud DO , Dr. Nicolás Luz Unavailab le Coni Jj LPN Unavailable Unavailable Pk Parikh LPN Unavailable Unavailable Marlen Ruiz RN Unavailable Unavailable Gravius CORONER/MEDICAL EXAMINER, Nella Unavailable Unavailable Unavailable Unavailable Dr. Scar Cabrera Unavailable SABI GRESHAM Attending Unavailable DIANA RANDALL Primary Care Unavailable DIANA RANDALL Primary Care Unavailable YON CHAPMAN Attending Unava ilable Elisa ENAMEL CRACKER, Shana Unavailable Unavailable Ciesa [employer], Mine Unavailable Diana Randall DO Unavailable Slarb ENAMEL CRACKER, Yana Unavailable Unavailable Robin [employer], Angelique Unavailable Grand CORONER/MEDICAL EXAMINER, Kayela Unavailable Unavailable Lela COWAN, Ambar Ag Unavailable Diana Randall DO Attending Unavailable Diana Randall DO Consulting Unavailable Waltera, Maria Elena Referring Unavailable Dr. Diana Randall Primary Care Provider Dr. Abel Perez Attending Provider Colterickson CORONER/MEDICAL EXAMINER, Nicole Unavailable Unavailable Susan Louis MA Unavailable Unavailable Latham ENAMEL CRACKER, Scooter Unavailable Unavailable Fast, Isaiah Unavailable Unavailable Omar ENAMEL CRACKER, LIDA Unavailable Unavailable Dr. Diana Randall Primary Care Provider Dr. Diana Randall Referring Provider DANIEL Winter Attending Provider DANIEL Chu Attending Provider Dr. Diana Randall Other Provider Dr. Aaron Luz Attending Provider Diana Randall DO Primary Care Provider DIANA RANDALL Referring Unavailable DIANA RANDALL Primary Care Unavailable Dr. Diana Randall DO Primary Care Provider [phone] Dr. Diana Randall DO Referring Provider Maritza Lin Attending Provider Maritza Lin Referring Provider [phone] Desmond Vieira DO Emergency Provider Diana Randall Primary Care Unavailable Desmond Vieira Attending UnavailMilton Laird V Attending Unavailable Diana Randall Primary Care Unavailable Maritza Howard Attending Unavailable Maritza Howard Referring Unavailable Diana Randall Primary Care Unavailable Maritza Howard Attending Unavailable Diana Randall Referring Unavailable Diana Randall Primary Care Unavailable Maritza Howard Attending Unavailable Mairtza Howard Referring Unavailable Diana Randall Primary Care Unavailable Allergies Allergy Classification Reported Allergen(s) Allergy Type Date of Onset Reaction(s) Facility (1 source) ALLERGIES NOT ON FILE; Translations: [ALLERGIES NOT ON FILE] Propensity to adverse reactions (disorder) [facility] 2 Repository Medications Current Medications Medication Drug Class(es) Dates Sig (Normalized) Sig (Original) amLODIPine 10 mg oral tablet (20 sources) Dihydropyridine Calcium Channel Patrick Start: 09-10-2019 take 1 tablet by mouth once daily Amlodipine 10 mg tablet Active 10 mg PO DAILY May 01, 2020 1:00am Start: 12-24-2018 take 1 tablet by harlan th once daily amLODIPine Besylate 10 MG Oral Tablet 1 (one) Tablet daily for 0 days Quantity: 30 {Tablet} Refills: 6 Ordered: 24-Dec-2018 Maria Elena Pulido CNP, CNP, Mary E Start : 24-Dec-2018 Active Start: 06-19-2018 take 1 tablet by harlan th once daily AmLODIPine Besylate 10 MG Oral Tablet 1 (one) Tablet daily for 0 days Quantity: 30 {Tablet} Refills: 6 Ordered: 19-Jun-2018 Laure Carlisle DO Start : 19-Jun-2018 Active Start: 04-06-2018 take 1 tablet by harlan th once daily AmLODIPine Besylate 10 MG Oral Tablet 1 (one) Tablet daily for 0 days Quantity: 30 {Tablet} Refills: 6 Ordered: 06-Apr-2018 Maria Elena Pulido CNP, CNP, Mary E Start : 06-Apr-2018 Active amoxicillin 875 mg / clavulanate 125 mg oral tablet (18 sources) Penicillin-class Antibacterial Start: 09-16-2024 Amoxicillin-Pot Clavulanate 875-125 mg tablet Active 1 {tbl} PO TWICE A DAY 14 7 0 September 16, 2024 12:00am Start: 12-15-2023 End: 06-25-2024 take 1 tablet by mouth every twelve hours Amoxicillin-Pot Clavulanate 875-125 mg tablet Discontinued 875 mg PO Q12H 20 0 December 15, 2023 12:00am June 25, 2024 8:02am Start: 05-23-2022 End: 06-06-2022 take 1 tablet by mouth twice daily amoxicillin-pot clavulanate 875-125 mg oral tablet 1 (one) tablet Bid for 0 days Quantity: 20 {Tablet} Refills: 0 Ordered: 06-Jun-2022 Yana Reyes LPN Start : 23-May-2022 End : 06-Jun-2022 Inactive aspirin 81 mg delayed release oral tablet (5 sources) Platelet Aggregation Inhibitor, Nonsteroidal Anti-inflammatory Drug Start: 06-14-2023 End: 06-25-2024 take 1 tablet by mouth once daily Aspirin (Adult Aspirin Regimen) 81 mg tablet,delayed release (DR/EC) Active 81 mg PO daily June 25, 2024 12:00am ezetimibe 10 mg oral tablet (2 sources) Dietary Cholesterol Absorption Inhibitor Start: 06-25-2024 take 1 tablet by mouth once daily Ezetimibe (Zetia) 10 mg tablet Active 10 mg PO daily 30 June 25, 2024 12:00am Fluticasone-Umeclidin- Vilanter (2 sources) Anticholinergic, Corticosteroid, beta2-Adrenergic Agonist Start: 12-13-2023 Fluticasone-Umeclidin -Vilanter (Trelegy Ellipta) 100-62.5-25 mcg blister with device Active 1 NMA INHALATION Q24H December 13, 2023 12:00am hydroCHLOROthiazide 25 mg oral tablet (20 sources) Thiazide Diuretic Start: 09-10-2019 take 1 tablet by mouth once daily Hydrochlorothiazide 25 mg tablet Active 25 mg PO DAILY May 01, 2020 1:00am Start: 12-24-2018 take 1 tablet by harlan th once daily hydroCHLOROthiazide 25 MG Oral Tablet 1 (one) Tablet daily for 0 days Quantity: 30 {Tablet} Refills: 6 Ordered: 24-Dec-2018 Maria Elena Pulido CNP, CNP, Mary E Start : 24-Dec-2018 Active Start: 06-19-2018 take 1 tablet by harlan th once daily HydroCHLOROthiazide 25 MG Oral Tablet 1 (one) Tablet daily for 0 days Quantity: 30 {Tablet} Refills: 6 Ordered: 19-Jun-2018 Laure Carlisle DO Start : 19-Jun-2018 Active Start: 04-06-2018 take 1 tablet by harlan th once daily HydroCHLOROthiazide 25 MG Oral Tablet 1 (one) Tablet daily for 0 days Quantity: 30 {Tablet} Refills: 6 Ordered: 06-Apr-2018 Maria Elena Pulido CNP, CNP, Maria Elena Webb Start : 06-Apr-2018 Active hydrocortisone 10 mg/ml / neomycin 3.5 mg/ml / polymyxin b [id number] unt/ml ophthalmic suspension (1 source) Aminoglycoside Antibacterial, Polymyxin-class Antibacterial, Corticosteroid Start: 06-12-2020 take 1 drop(s) into the eye(s) three times daily ykcmjeuz-ifwdgipck-lgneyczvnoykvb (CORTISPORIN) ophthalmic suspension Administer 1 (one) drop to the right eye 3 (three) times a day . 7.5 mL 0 06/12/2020 Active ondansetron 4 mg disintegrating oral tablet (3 sources) Serotonin-3 Receptor Antagonist Start: 09-16-2024 take 1 tablet by mouth every eight hours as needed for nausea Ondansetron 4 mg tablet,disintegrating Active 4 mg PO EVERY 8 HOURS NEEDED as needed for Nausea 10 0 September 16, 2024 12:00am Start: 12-15-2023 take 1 tablet by harlan th every eight hours as needed for nausea and vomiting Ondansetron 8 mg tablet,disintegrating Active 8 mg PO Q8H as needed for nausea and vomiting 15 0 December 15, 2023 12:00am tamsulosin hydrochloride 0.4 mg oral capsule (3 sources) alpha-Adrenergic Patrick Start: 06-14-2023 take 1 capsule by mouth once daily Tamsulosin 0.4 mg capsule Active 0.4 mg PO DAILY June 14, 2023 12:00am Completed/Discontinued Medications Medication Drug Class(es) Dates Sig (Normalized) Sig (Original) [id number] 200 actuat albuterol 0.09 mg/actuat metered dose inhaler (20 sources) beta2-Adrenergic Agonist Start: 12-03-2021 End: 11-24-2022 ProAir HFA 90 mcg/actuation inhalation HFA Aerosol with Adapter 2 (two) Puff q 6 hr for 4days then prn for 0 days Quantity: 1 {Unspecified} Refills: 1 Ordered: 24-Nov-2022 LIDA Nelson LPN Start : 03-Dec-2021 End : 24-Nov-2022 Inactive Comments: dispense one inahler Start: 05-05-2021 ProAir HFA 108 (90 Base) MCG/ACT Inhalation Aerosol Solution 2 (two) Puff q 6 hr for 4days then prn for 0 days Quantity: 1 {Unspecified} Refills: 1 Ordered: 05-May-2021 Nella Jama CMA Start : 05-May-2021 Active Comments: dispense one inahler Comment on above: dispense one inahler Arginine (20 sources) l arginine 1000 qod Inactive l arginine 1000 qod Active azithromycin 250 mg oral tablet (16 sources) Macrolide Antimicrobial Start: 05-13-2022 End: 06-06-2022 take 1 tablet by mouth once daily Zithromax Z-Garrison 250 mg oral tablet tad tablet qd for 0 days Quantity: 1 {Unspecified} Refills: 0 Ordered: 06-Jun-2022 Yana Reyes LPN Start : 13-May-2022 End : 06-Jun-2022 Inactive Comments: dispense one packet Comment on above: dispense one packet cephalexin 500 mg oral capsule (20 sources) Cephalosporin Antibacterial Start: 02-18-2021 End: 02-28-2021 take 1 capsule by mouth twice daily Cephalexin 500 MG Oral Capsule 1 (one) Capsule bid for 10 days Quantity: 20 {Capsule} Refills: 0 Ordered: 18-Feb-2021 Diana Randall DO, DO, Kathleen Start : 18-Feb-2021 End : 28-Feb-2021 Inactive Comments: or generic Start: 05-01-2020 End: 06-30-2023 Cephalexin 500 mg capsule Discontinued 500 NMA PO DAILY May 01, 2020 1:00am June 30, 2023 9:57am Start: 05-01-2020 End: 05-11-2020 take 1 capsule by mouth every twelve hours Cephalexin 500 mg capsule Discontinued 500 mg PO Q12H 20 10 0 May 01, 2020 1:00am May 10, 2020 1:00am May 11, 2020 1:03am Start: 02-18-2020 End: 02-25-2020 take 1 capsule by mouth twice daily Keflex 500 MG Oral Capsule 1 (one) Capsule bid for 7 days Quantity: 14 {Capsule} Refills: 0 Ordered: 18-Feb-2020 Maria Elena Pulido CNP Start : 18-Feb-2020 End : 25-Feb-2020 Inactive Comments: or generic Comment on above: or generic famotidine 20 mg oral tablet (2 sources) Histamine-2 Receptor Antagonist Start: 12-13-19 End: 06-26-19 take 1 tablet by mouth twice daily Famotidine (Acid Nephrology Social Worker (Famotidine)) 20 mg tablet Discontinued 20 mg PO TWICE A DAY December 13, 2023 12:00am June 25, 2024 8:02am 30 actuat fluticasone furoate 0.2 mg/actuat / vilanterol 0.025 mg/actuat dry powder inhaler (2 sources) Corticosteroid, beta2-Adrenergic Agonist Start: 06-30-19 End: 12-13-19 Fluticasone Furoate-Vilanterol (Breo Ellipta) 200-25 mcg/dose blister with device Discontinued 1 NMA INHALATION DAILY June 30, 2023 12:00am December 13, 2023 4:19pm glucosamine sulfate 500 mg oral capsule (20 sources) Start: 08-06-19 End: 03-25-19 21 take 1 capsule by mouth twice daily Glucosamine Sulfate 500 MG Oral Capsule 1 (one) Capsule bid for 0 days Quantity: 60 {Capsule} Refills: 0 Ordered: 25-Mar-2020 Nella Jama CMA Start : 06-Aug-2019 End : 25-Mar-2020 Inactive hydrOXYzine pamoate 25 mg oral capsule (2 sources) Antihistamine Start: 12-13-19 End: 09-17-19 take 1 capsule by mouth three times daily as needed Hydroxyzine Pamoate 25 mg capsule Discontinued 25 mg PO THREE TIMES A DAY as needed December 13, 2023 12:00am September 16, 2024 12:15pm ibuprofen 800 mg oral tablet (20 sources) Nonsteroidal Anti-inflammatory Drug Start: 04-06-19 End: 11-25-19 23 take 1 tablet by mouth every eight hours as needed ibuprofen 800 mg oral tablet 1 (one) Tablet q8hrs prn for 0 days Quantity: 30 {Tablet} Refills: 0 Ordered: 24-Nov-2022 LIDA Nelson LPN Start : 06-Apr-2018 End : 24-Nov-2022 Inactive Comments: with food Comment on above: with food levoFLOXacin 500 mg oral tablet (20 sources) Quinolone Antimicrobial Start: 09-02-19 End: 10-14-19 take 1 tablet by mouth once daily in the morning levoFLOXacin 500 MG Oral Tablet 1 (one) Tablet qam for 0 days Quantity: 10 {Tablet} Refills: 0 Ordered: 13-Oct-2021 Amy HERMOSILLOYana Start : 01-Sep-2021 End : 13-Oct-2021 Inactive Lipoflavonoid Oral Tablet (20 sources) Start: 04-06-19 End: 08-02-19 take 1 tablet by mouth once daily Lipoflavonoid Oral Tablet 1 (one) Tablet daily for 0 days Quantity: 30 {Tablet} Refills: 0 Ordered: 02-Aug-2019 Marlen Ruiz RN Start : 06-Apr-2018 End : 02-Aug-2019 Inactive Start: 04-06-2018 take 1 tablet by harlan th once daily Lipoflavonoid Oral Tablet 1 (one) Tablet daily for 0 days Quantity: 30 {Tablet} Refills: 0 Ordered: 06-Apr-2018 Ashok FERRELL Mien Ashok FERRELL, Maria Elena Webb Start : 06-Apr-2018 Active loratadine 10 mg oral capsule (20 sources) Start: 08-02-2019 End: 02-18-2021 take 1 capsule by mouth once daily Loratadine 10 MG Oral Capsule 1 (one) Capsule qd for 30 days Quantity: 30 {Capsule} Refills: 3 Ordered: 18-Feb-2021 Elisa HERMOSILLO Shana Start : 02-Aug-2019 End : 18-Feb-2021 Inactive losartan potassium 25 mg oral tablet (20 sources) Angiotensin 2 Receptor Patrick Start: 10-14-2022 take 1 tablet by mouth once daily losartan 25 mg oral tablet 1 (one) Tablet daily as directed for 0 days Quantity: 30 {Tablet} Refills: 6 Ordered: 14-Oct-2022 Diana Randall DO, DO, Kathleen Start : 14-Oct-2022 Active Start: 09-26-2022 take 1 tablet by harlan th once daily losartan 25 mg oral tablet 1 (one) Tablet daily as directed for 0 days Quantity: 30 {Tablet} Refills: 6 Ordered: 26-Sep-2022 Diana Randall DO, DO, Kathleen Start : 26-Sep-2022 Active Start: 09-10-2019 End: 05-13-2022 take 1 tablet by mouth once daily Losartan 25 mg tablet Active 25 mg PO DAILY May 01, 2020 1:00am Start: 06-19-2018 take 1 tablet by harlan th once daily Losartan Potassium 25 MG Oral Tablet 1 (one) Tablet daily as directed for 0 days Quantity: 30 {Tablet} Refills: 6 Ordered: 19-Jun-2018 Laure Carlisle DO Start : 19-Jun-2018 Active Start: 04-06-2018 take 1 tablet by harlan th once daily Losartan Potassium 25 MG Oral Tablet 1 (one) Tablet daily as directed for 0 days Quantity: 30 {Tablet} Refills: 6 Ordered: 06-Apr-2018 Ashok FERRELL Mine Ashok FERRELL Mine Start : 06-Apr-2018 Active meclizine hydrochloride 25 mg oral tablet (6 sources) Antiemetic Start: 11-07-2022 End: 12-13-2023 take 1 tablet by mouth three times daily as needed for dizziness Meclizine 25 mg tablet Discontinued 25 mg PO THREE TIMES A DAY as needed for dizziness 20 0 November 07, 2022 12:00am December 13, 2023 4:19pm Start: 06-12-2020 meclizine (ANT IVERT) tablet 25 mg Start: 06-12-2020 End: 06-22-2020 meclizine (ANTIVERT) 25 MG c hewable tablet Chew and Swallow 1 (one) tablet (25 mg total) 3 (three) times a day as needed . 20 tablet 0 06/12/2020 06/22/2020 Active melatonin 3 mg oral capsule (20 sources) Start: 08-06-2019 End: 01-07-2021 take 1 capsule by mouth once daily Melatonin 3 MG Oral Capsule 1 (one) Capsule daily for 0 days Quantity: 30 {Capsule} Refills: 0 Ordered: 07-Jan-2021 Yana Reyes LPN Start : 06-Aug-2019 End : 07-Jan-2021 Inactive meloxicam 15 mg oral tablet (20 sources) Nonsteroidal Anti-inflammatory Drug Start: 08-30-2021 End: 05-13-2022 take 1 tablet by mouth once daily at mealtime as needed meloxicam 15 mg oral tablet 1 (one) Tablet qd with food prn for 0 days Quantity: 30 {Tablet} Refills: 3 Ordered: 13-May-2022 Shanon Coppola CMA Start : 30-Aug-2021 End : 13-May-2022 Inactive Start: 05-10-2021 take 1 tablet by harlan th once daily at mealtime as needed Meloxicam 15 MG Oral Tablet 1 (one) Tablet qd with food prn for 0 days Quantity: 30 {Tablet} Refills: 3 Ordered: 10-May-2021 Diana Randall DO, DO, Kathleen Start : 10-May-2021 Active Start: 05-03-2021 take 1 tablet by harlan th once daily at mealtime as needed Meloxicam 15 MG Oral Tablet 1 (one) Tablet qd with food prn for 0 days Quantity: 30 {Tablet} Refills: 3 Ordered: 03-May-2021 Diana Randall DO, DO, Kathleen Start : 03-May-2021 Active Start: 01-07-2021 take 1 tablet by harlan th once daily at mealtime as needed Meloxicam 15 MG Oral Tablet 1 (one) Tablet qd with food prn for 0 days Quantity: 30 {Tablet} Refills: 3 Ordered: 07-Jan-2021 Shana Pérez LPN Start : 07-Jan-2021 Active methylPREDNISolone 4 mg oral tablet (4 sources) Corticosteroid Start: 09-15-2022 End: 09-21-2022 take 1 tablet by mouth once Methylprednisolone (Medrol (Garrison)) 4 mg tablets,dose pack Discontinued 4 mg PO per package directions 21 6 0 September 15, 2022 12:00am September 20, 2022 12:00am September 21, 2022 12:03am naproxen 500 mg oral tablet (20 sources) Nonsteroidal Anti-inflammatory Drug Start: 06-26-2017 End: 12-08-2017 take 1 tablet by mouth at mealtime Naprosyn 500 MG Oral Tablet 1 (one) Tablet Tablet 1-2 times per day for 0 days Quantity: 30 {Tablet} Refills: 0 Ordered: 08-Dec-2017 Loida Ledbetter Start : 26-Jun-2017 End : 08-Dec-2017 Discontinued Comments: with food Comment on above: with food pantoprazole 40 mg delayed release oral tablet (2 sources) Proton Pump Inhibitor Start: 12-13-2023 End: 06-25-2024 take 1 tablet by mouth once daily Pantoprazole 40 mg tablet,delayed release (DR/EC) Discontinued 40 mg PO daily December 13, 2023 12:00am June 25, 2024 8:03am predniSONE 20 mg oral tablet (20 sources) Start: 09-26-2022 End: 10-14-2022 predniSONE 20 mg oral tablet 1 (one) Tablet bid for 5 days then one a day for 5 days then 1/2 a day for 4 days for 0 days Quantity: 17 {Tablet} Refills: 0 Ordered: 14-Oct-2022 Koby GIRALDONicole Start : 26-Sep-2022 End : 14-Oct-2022 Inactive Start: 06-06-2022 predniSONE 20 mg oral tablet 1 (one) Tablet bid for 5 days then one a day for 5 days then 1/2 a day for 4 days for 0 days Quantity: 17 {Tablet} Refills: 0 Ordered: 06-Jun-2022 Ambar Vogel MD Start : 06-Jun-2022 Active Start: 10-13-2021 End: 05-13-2022 predniSONE 10 mg oral tablet 1 (one) Tablet as directed for 0 days Quantity: 30 {Tablet} Refills: 0 Ordered: 13-May-2022 Anat GIRALDO Shanon Start : 13-Oct-2021 End : 13-May-2022 Inactive Comments: 4 tabs by mouth x3 days, then 3 tabs x3 days, then 2 tabs x3 days, then 1 tab x3 days Start: 09-01-2021 End: 10-13-2021 take 1 tablet by mouth twice daily, then take 1 tablet by mouth once daily at mealtime predniSONE 20 MG Oral Tablet 1 (one) Tablet bid for 4days then one tab qd with food for 0 days Quantity: 12 {Tablet} Refills: 0 Ordered: 13-Oct-2021 Angelique Kelly CNP Start : 01-Sep-2021 End : 13-Oct-2021 Inactive Start: 05-05-2021 take 1 tablet by harlan th twice daily, then take 1 tablet by mouth once daily at mealtime predniSONE 20 MG Oral Tablet 1 (one) Tablet bid for 4days then one tab qd with food for 0 days Quantity: 12 {Tablet} Refills: 0 Ordered: 05-May-2021 Diana Randall DO Tonia DO Diana Start : 05-May-2021 Active Start: 02-18-2021 End: 02-23-2021 take 2 tablets by mouth once daily at mealtime predniSONE 10 MG Oral Tablet 2 (two) Tablet daily for 5 days Quantity: 10 {Tablet} Refills: 0 Ordered: 18-Feb-2021 Tonia GARIBAY Dianamally Randall DO Diana Start : 18-Feb-2021 End : 23-Feb-2021 Inactive Comments: with food Start: 09-13-2019 End: 09-20-2019 take 3 tablets by mouth once daily at mealtime predniSONE 10 MG Oral Tablet 3 (three) Tablet daily for 7 days Quantity: 21 {Tablet} Refills: 0 Ordered: 13-Sep-2019 Ashok GHASSANMaria Elena Start : 13-Sep-2019 End : 20-Sep-2019 Inactive Comments: with food Start: 08-28-2017 End: 09-04-2017 take 3 tablets by mouth once daily at mealtime PredniSONE 10 MG Oral Tablet 3 (three) Tablet daily for 7 days Quantity: 21 {Tablet} Refills: 0 Ordered: 28-Aug-2017 Lindsayadinbina FERRELL Maria Elena Pulido GHASSAN Maria Elena Webb Start : 28-Aug-2017 End : 04-Sep-2017 Inactive Comments: with food Comment on above: with food 4 tabs by mouth x3 d ays, then 3 tabs x3 days, then 2 tabs x3 days, then 1 tab x3 days rosuvastatin calcium 10 mg oral tablet (13 sources) HMG-CoA Reductase Inhibitor Start: End: take 1 tablet by mouth once daily Rosuvastatin 10 mg tablet Discontinued 10 mg PO daily December 13, 2023 4:19pm June 25, 2024 8:02am Start: 06-14-2023 End: 12-13-2023 Rosuvastatin 10 mg tablet Discontinued mg PO June 14, 2023 12:00am December 13, 2023 4:22pm Start: 06-14-2023 Rosuvastatin A ctive MG PO June 14, 2023 12:00am Start: 09-26-2022 End: 11-24-2022 take 1 tablet by mouth once daily at bedtime Crestor 10 mg oral tablet 1 (one) tablet qhs for 0 days Quantity: 30 {Tablet} Refills: 4 Ordered: 24-Nov-2022 Omar LIDA HERMOSILLO Start : 26-Sep-2022 End : 24-Nov-2022 Inactive Trelegy Ellipta 200 mcg-62.5 mcg-25 mcg powder for inhalation (14 sources) Start: 06-06-2022 End: 11-24-2022 Trelegy Ellipta 200 mcg-62.5 mcg-25 mcg powder for inhalation 1 inhalation daily for 0 days Quantity: 1 {Each} Refills: 0 Ordered: 24-Nov-2022 Omar ILDA HERMOSILLO Start : 06-Jun-2022 End : 24-Nov-2022 Inactive Start: 06-06-2022 Trelegy Ellipt a 200 mcg-62.5 mcg-25 mcg powder for inhalation 1 inhalation daily for 0 days Quantity: 1 {Each} Refills: 0 Ordered: 13-Jun-2022 Nicole Whalen CMA Start : 06-Jun-2022 Active Start: 06-06-2022 Trelegy Ellipt a 200 mcg-62.5 mcg-25 mcg powder for inhalation 1 inhalation daily for 0 days Quantity: 1 {Each} Refills: 0 Ordered: 06-Jun-2022 Ambar Vogel MD Start : 06-Jun-2022 Active Vit C (2 sources) Vit C Active Vit D (2 sources) Vit D Active vitamin b12 2.5 mg sublingual tablet (20 sources) Vitamin B12 Start: 02-11-2020 End: 01-07-2021 take 1 tablet under the tongue once daily Cyanocobalamin 2500 MCG Sublingual Tablet Sublingual 1 (one) Tablet daily for 0 days Quantity: 30 {Tablet} Refills: 0 Ordered: 07-Jan-2021 Yana Reyes LPN Start : 11-Feb-2020 End : 07-Jan-2021 Inactive Start: 02-11-2020 End: 01-07-2021 take 1 tablet under the tongue once daily Cyanocobalamin 2500 MCG Sublingual Tablet Sublingual 1 (one) Tablet daily for 0 days Quantity: 30 {Tablet} Refills: 0 Ordered: 07-Jan-2021 Yana Reyes LPN Start : 11-Feb-2020 End : 07-Jan-2021 Inactive Problems Active Problems Problem Classification Problem Date Documented Date Episodic/Chronic Alcohol-related disorders (20 sources) Alcohol abuse; Translations: [Alcohol abuse] Resolved: 1 08-05-2020 Chronic Comment on above: dry -- no sponser - almost 2yr Allergic reactions (20 sources) Contact dermatitis due to poison megan; Translations: [Poison megan] Resolved: 8 04-06-2018 Episodic Comment on above: -steroid injection-o ral taper x12 days, take with food -steroid injection t michael 125mg htfe-vrruax-epsr taper x12 days, take with food-topical cream like triamcinolone if pruritis, NOT by eye-advised if does not resolve or worsens by his eye to see his eye doctor asapdiffuse over multiple parts of body including R eye, gets every year Chronic obstructive pulmonary disease and bronchiectasis (4 sources) Chronic obstructive lung disease; Translations: [Chronic obstructive pulmonary disease, unspecified] Onset: 5 06-14-2023 Chronic Chronic obstructive pulmonary disease and bronchiectasis (20 sources) Bronchitis; Translations: [Bronchitis] Resolved: 3 03-08-2021 Episodic Conditions associated with dizziness or vertigo (6 sources) Vertigo; Translations: [Benign paroxysmal positional vertigo] 11-07-2022 Episodic Coronary atherosclerosis and other heart disease (20 sources) Coronary atherosclerosis; Translations: [Atherosclerosis of [place] coronary artery of [place] heart without angina pectoris] Onset: 4 06-06-2022 Chronic Comment on above: seen on CT 11-21 misael cifications Patient has a CT sca n with a calcium score of 2189.He is exercising just moving into a [employer] routinely. He actually purchased a [employer] for his home. We reviewed exercise opportunities and ways to monitor his cardiac status over the long-haul.The patient's secondary risk factors are being addressed he is hypertensive and hyperlipidemic. He does have a family history of coronary disease and a brother and his dad had a stroke. Patient is a remote smoker quit 17 years ago. Diabetes mellitus without complication (17 sources) Type 2 diabetes mellitus; Translations: [Type II diabetes mellitus, well controlled] 10-14-2022 Chronic Comment on above: dx 10/09- Haic popped up- pt will watch diet and exrecise and fu 3mo The patient reports he has recently diagnosis type 2 diabetes. I cannot come up with any complicating issues at this time other than his atherosclerosis documented on CAT scan. Diabetes mellitus without complication (20 sources) Hyperglycemia; Translations: [Hyperglycemia] 06-29-2020 Episodic Disorders of lipid metabolism (20 sources) Hypercholesterolemia; Translations: [Hypercholesteremia] Onset: 5 10-14-2019 Chronic Disorders of teeth and jaw (20 sources) Temporomandibular joint disorder; Translations: [TMJ (temporomandibular joint disorder)] 04-06-2018 Episodic Diverticulosis and diverticulitis (2 sources) Diverticulitis of sigmoid colon; Translations: [Diverticulitis of large intestine without perforation or abscess without bleeding] 12-23-2023 Chronic Essential hypertension (20 sources) Hypertensive disorder; Translations: [Hypertension] Onset: 5 04-06-2018 Chronic Comment on above: 10 year history on a mlodipine and HctZ, consider getting additional labs and readings before putting on additional meds. Labs look ok, add more greens Fever of unknown origin (20 sources) Fever with chills; Translations: [Fever and chills] Resolved: 2 03-08-2021 Episodic Fluid and electrolyte disorders (20 sources) Hyperkalemia; Translations: [Serum potassium elevated] Resolved: 1 04-06-2018 Episodic Gastrointestinal hemorrhage (20 sources) Hematochezia; Translations: [Blood in stool] Resolved: 3 09-23-2020 Episodic Hyperplasia of prostate (3 sources) Benign prostatic hyperplasia; Translations: [Benign prostatic hyperplasia without lower urinary tract symptoms] 06-14-2023 Chronic Immunizations and screening for infectious disease (20 sources) Contact with and (suspected) exposure to other viral communicable diseases; Translations: [Anti-nuclear factor positive] 12-09-2019 Episodic Comment on above: with elevated Antidn a lab ck 2020 Neoplasms of unspecified nature or uncertain behavior (20 sources) Neoplasm of uncertain behavior of skin; Translations: [Neoplasm of uncertain behavior of skin] 02-18-2020 Episodic Nonspecific chest pain (20 sources) Chest pain at rest; Translations: [Chest pain at rest] Onset: 5 Resolved: 3 06-06-2022 Episodic Nutritional deficiencies (20 sources) Vitamin B12 deficiency (non anemic); Translations: [Cobalamin deficiency] 02-18-2020 Episodic Comment on above: weekly B12 injection x 1 month pt going to switch t o oral and rev levels Osteoarthritis (20 sources) Unspecified osteoarthritis, unspecified site; Translations: [Arthritis/arthrosis] 04-06-2018 Chronic Other and unspecified benign neoplasm (20 sources) History of polyp of colon; Translations: [History of colon polyps] 04-06-2018 Episodic Comment on above: colonoscopy by Adilia lee in 2011 Other and unspecified benign neoplasm (20 sources) Melanocytic nevus; Translations: [Atypical mole] 01-28-2020 Episodic Comment on above: to return for biopsy of mole Other circulatory disease (20 sources) Pulmonary congestion ; Translations: [Chest congestion] Resolved: 3 05-05-2021 Episodic Other connective tissue disease (20 sources) Pain in lower limb; Translations: [Pain in cavanaugh] Resolved: 2 12-09-2019 Episodic Comment on above: bilateral Other connective tissue disease (20 sources) Pain of bilateral hands; Translations: [Bilateral hand pain] 01-28-2020 Episodic Comment on above: suspect carpel tunne l Other connective tissue disease (20 sources) Pain of left hand; Translations: [Hand pain, left] Resolved: 3 08-05-2020 Episodic Comment on above: needs caulk up splin t Other connective tissue disease (20 sources) Pain in right hand; Translations: [Hand pain, right] Resolved: 3 08-05-2020 Episodic Other ear and sense organ disorders (4 sources) Hearing loss of right ear; Translations: [Unspecified hearing loss, right ear] 11-07-2022 Chronic Other ear and sense organ disorders (1 source) Unspecified hearing loss, right ear; Translations: [Unspecified hearing loss] 11-07-2022 Chronic Other ear and sense organ disorders (20 sources) Tinnitus; Translations: [Tinnitus] 04-06-2018 Episodic Other ear and sense organ disorders (1 source) Acute otitis externa; Translations: [Acute diffuse otitis externa of right ear] Episodic Other gastrointestinal disorders (20 sources) Diarrhea; Translations: [Diarrhea] Resolved: 1 10-14-2019 Episodic Comment on above: resolved, discussed BRAT diet, not thinking covid symptom to call back if worsens Other lower respiratory disease (20 sources) Cough; Translations: [Cough] Resolved: 3 03-08-2021 Episodic Other lower respiratory disease (20 sources) Cough; Translations: [Post-COVID chronic cough] 05-05-2021 Episodic Comment on above: tightnees in chest a s well 00 prn rescue helsp Other lower respiratory disease (20 sources) Dyspnea; Translations: [SOB (shortness of breath)] Resolved: 3 05-05-2021 Episodic Other nervous system disorders (20 sources) Paresthesia; Translations: [Paresthesia] Resolved: 3 01-28-2020 Episodic Comment on above: initial work up bloo d test, will consider neurology consult after labs back Other non-traumatic joint disorders (20 sources) Arthropathy Chronic Other non-traumatic joint disorders (20 sources) Effusion of joint; Translations: [Joint effusion] 04-06-2018 Episodic Other non-traumatic joint disorders (20 sources) Joint pain; Translations: [Joint pain] Resolved: 3 04-06-2018 Episodic Comment on above: Rt knee Other non-traumatic joint disorders (20 sources) Pain in right knee; Translations: [Pain in right knee] Resolved: 3 04-06-2018 Episodic Comment on above: resolved pt doing CBD gel cap s Other non-traumatic joint disorders (20 sources) Shoulder pain; Translations: [Shoulder pain] Resolved: 3 10-14-2019 Episodic Comment on above: took some time off f or shoulder pain about the same offer ed referral, he will let us know Other non-traumatic joint disorders (20 sources) Hand joint pain; Translations: [Joint pain in fingers of right hand] 10-14-2019 Episodic Other non-traumatic joint disorders (20 sources) Pain in left shoulder; Translations: [Shoulder pain, left] Resolved: 3 06-13-2022 Episodic Comment on above: took some time off f or shoulder pain Other nutritional; endocrine; and metabolic disorders (20 sources) Body mass index 30+ - obesity; Translations: [BMI 30.0-30.9,adult] 04-06-2018 Chronic Other nutritional; endocrine; and metabolic disorders (20 sources) Body mass index 25-29 - overweight; Translations: [BMI 29.0-29.9,adult] 08-06-2019 Chronic Other nutritional; endocrine; and metabolic disorders (20 sources) Hypercalcemia; Translations: [Hypercalcemia] 10-14-2019 Chronic Comment on above: ? related to water i ntake low or other Other nutritional; endocrine; and metabolic disorders (20 sources) Body mass index 25-29 - overweight; Translations: [BMI 29.0-29.9,adult] Resolved: 1 08-05-2020 Episodic Other nutritional; endocrine; and metabolic disorders (20 sources) Overweight in adulthood with body mass index of 25 or more but less than 30; Translations: [BMI 28.0-28.9,adult] Resolved: 3 05-05-2021 Episodic Other screening for suspected conditions (not mental disorders or infectious disease) (16 sources) Imaging of thorax abnormal; Translations: [Abnormal CXR] 09-26-2022 Chronic Other screening for suspected conditions (not mental disorders or infectious disease) (20 sources) Thyroid hormone tests abnormal; Translations: [Abnormal TSH] Resolved: 3 02-18-2020 Episodic Comment on above: jabour - colonoscopy 03-10 last psa 10/09 Other skin disorders (20 sources) Lentiginosis; Translations: [Lentigo] 02-18-2020 Episodic Comment on above: non malignant s/p sk in biopsy Other upper respiratory disease (20 sources) Seasonal allergy; Translations: [Seasonal allergies] 10-14-2019 Chronic Other upper respiratory disease (20 sources) Nasal congestion; Translations: [Nasal congestion] Resolved: 1 12-09-2019 Episodic Comment on above: improving Other upper respiratory infections (20 sources) Upper respiratory infection; Translations: [Upper respiratory infection] 04-06-2018 Episodic Comment on above: resolving was on pre dnisone and zpack Otitis media and related conditions (5 sources) Dysfunction of eustachian tube; Translations: [Unspecified Eustachian tube disorder, right ear] 09-15-2022 Episodic Residual codes; unclassified (20 sources) Insomnia; Translations: [Insomnia] Resolved: 3 10-14-2019 Episodic Residual codes; unclassified (20 sources) Chill; Translations: [Chills] Resolved: 1 12-09-2019 Episodic Residual codes; unclassified (20 sources) Influenza vaccination declined; Translations: [Influenza vaccination declined (Renamed from Refused influenza vaccine)] 08-05-2020 Episodic Screening and history of mental health and substance abuse codes (20 sources) Ex-smoker; Translations: [Former smoker] 04-06-2018 Episodic Comment on above: h/o 2packs daily for 40 yr and quit 10 yrs ago Skin and subcutaneous tissue infections (20 sources) Infection of skin; Translations: [Skin infection] Resolved: 1 02-18-2020 Episodic Comment on above: observed on google d uo, adding keflexof biopsy site Unclassified (20 sources) BMI 30.0-30.9,adult Unclassified (20 sources) Knee pain, right Unclassified (20 sources) Screening status; Translations: [Encounter for screening for malignant neoplasm of prostate (Renamed from Screening for prostate cancer)] 04-06-2018 Unclassified (20 sources) BMI 29.0-29.9,adult Unclassified (20 sources) Former smoker Unclassified (20 sources) Influenza vaccination declined; Translations: [Influenza vaccination declined (Renamed from Refused influenza vaccine)] 04-06-2018 Unclassified (20 sources) Unclassified (20 sources) TMJ (temporomandibular joint disorder) Unclassified (20 sources) Hypercholesteremia Unclassified (20 sources) Bilateral hand pain Unclassified (20 sources) Joint pain in fingers of right hand Unclassified (20 sources) Positive TULIO (antinuclear antibody) Unclassified (20 sources) Recovering alcoholic Unclassified (20 sources) Encounter for hepatitis C virus screening test for high risk patient Unclassified (20 sources) BMI 28.0-28.9,adult Unclassified (9 sources) Chest congestion Unclassified (6 sources) Post-COVID chronic cough Unclassified (6 sources) Age more than 65 years; Translations: [Over 65 years old] 03-10-2021 Viral infection (6 sources) Disease caused by 2019-nCoV; Translations: [COVID-19] 03-10-2021 Episodic Past or Other Problems Problem Classification Problem Date Documented Da te Episodic/Chronic Abdominal pain (2 sources) Abdominal pain; Translations: [Unspecified abdominal pain] Onset: 09-19-2024 09-16-2024 Episodic Headache; including migraine (20 sources) Headache; including migraine Malaise and fatigue (5 sources) Fatigue; Translations: [Other fatigue] Onset: 06-25-2024 06-25-2024 Episodic Other connective tissue disease (20 sources) Pain of bilateral hands; Translations: [Bilateral hand pain] 10-14-2019 Comment on above: suspect carpel tunne l Other connective tissue disease (20 sources) Pain in right hand; Translations: [Hand pain, right] 01-28-2020 Other connective tissue disease (20 sources) Pain of left hand; Translations: [Hand pain, left] 01-28-2020 Comment on above: needs caulk up splin t Other non-traumatic joint disorders (20 sources) Pain in right knee; Translations: [Knee pain, right] 10-14-2019 Comment on above: resolved Residual codes; unclassified (3 sources) Increased body mass index; Translations: [BMI 29.0-29.9,adult] 04-06-2018 Episodic Unclassified (20 sources) Encounter for screening for malignant neoplasm of colon (Renamed from Special screening for malignant neoplasms, colon); Translations: [Screening status] 04-06-2018 Unclassified (20 sources) Joint effusion Unclassified (20 sources) Serum potassium elevated Unclassified (20 sources) History of colon polyps Unclassified (20 sources) Poison megan Unclassified (20 sources) Unspecified Diagnosis 10-17-2019 Unclassified (20 sources) Shoulder pain, left Unclassified (20 sources) Exposure to SARS virus Unclassified (20 sources) Pain in cavanaugh Unclassified (20 sources) Atypical mole Unclassified (20 sources) Hand pain, left Unclassified (20 sources) Hand pain, right Unclassified (20 sources) Skin infection Unclassified (20 sources) Abnormal TSH Unclassified (10 sources) Osteoarthritis, chronic Results Test Name Value Interpretation Reference Range Facility Abdomen/Pelvis W IV Cont ONL Yon 09-16-2024 Abdomen/Pelvis W IV Cont ONLY [facility] [address] [place], [place] [id number] Abdomen/Pelvis W IV Cont ONLY MR#: [id number] Acct: [id number] Name: MARANDA ZHANG Rep #: [id number] : 1955 M 69 From: Allan Borden MD PCP: Dr. Diana Randall DO Status: REG ER Study: Abdomen/Pelvis W IV Cont ONLY Date of Exam: Exam# [id number] Ordering Dr: Desmond Vieira DO PROCEDURE: ABDOMEN/PELVIS W IV CONT ONLY 09/16/2024 REASON FOR EXAM: LEFT LOWER QUADRANT ABDOMINAL PAIN TECHNIQUE: ABDOMEN/PELVIS W IV CONT ONLY Coronal and Sagittal reconstruction series were provided. CONTRAST: 100 cc Isovue 300 One or more dose reduction techniques were used (e.g., Automated exposure control, adjustment of the mA and/or kV according to patient size, use of iterative reconstruction technique. RADIATION DOSE SUMMARY: DLP: 1088.21 mGycm COMPARISON: December 15, 2023 FINDINGS: Lung bases: Clear Liver: Unremarkable Gallbladder: Unremarkable Spleen: Unremarkable Pancreas: Unremarkable Adrenals: Unremarkable Kidneys: Unremarkable Bladder: Reproductive Organs: The bladder is not distended. There is circumferential bladder wall thickening to 0.6 cm, which may be partly secondary to lack of distention. The prostate has a nodular appearance with calcifications noted. A hydrocele is visible in the scrotum on the right and left. Bowel: The small bowel loops are nondistended. There is diverticulosis of the distal descending and sigmoid colon with no definite acute diverticulitis. Appendix: The appendix is normal in appearance. Lymph nodes: There is no pathologic adenopathy by size criteria. Vasculature: Atherosclerotic calcifications are noted. Peritoneum / Retroperitoneum: There is no free air or free fluid. Bones: There is no acute bony abnormality. CT/Abdomen/Pelvis W IV Cont ONLY IMPRESSION: There is circumferential bladder wall thickening to 0.6 cm, which may be partly secondary to lack of distention. The prostate has a nodular appearance with calcifications noted. Consider PSA correlation. There is diverticulosis of the distal descending and sigmoid colon with no definite acute diverticulitis. A hydrocele is visible in the scrotum on the right and left. Reading Location: [facility] CC: Dr. Desmond Vieira DO; Dr. Diana Tonia, DO Marketing Producer: Signed Normal [facility] Absolute lymphocyte countOrd ered By: Desmond VikasHeydi on 09-16-2024 Lymphocytes Auto (Unsp spec) [#/Vol] 1.46 10*3/uL 0.83-4.51 [facility] Absolute neutrophil countOrd ered By: [facility] RehabilitationHeydi on 09-16-2024 Neutrophils (Bld) [#/Vol] 6.8 10*3/uL 2.0-7.7 [facility] Anion gap in Serum or Plasma Ordered By: [facility] on 09-16-2024 Anion gap [Moles/Vol] 14 mmol/L 5- [facility] Automated lymphocyte count a s percentage of total leukocytesOrdered By: Desmondearle Vieira on 09-16-2024 Lymphocytes/100 WBC Auto (Unsp spec) 16.6 % Low 19-41 [facility] BUN/creatinine ratioOrdered By: [facility] RehabilitationmanuelMiriam on 09-16-2024 Urea nitrogen/Creatinine [Mass ratio] 13.5 mg/mg - [facility] Basic Metabolic Profile (BMP )on 09-16-2024 BUN/CRE 13.5 RATIO Normal - [facility] Comment on above: Performed By: #### L 100.0100, L500.2500 #### [facility] [address] [place], [address] Calcium [Mass/Vol] 9.8 mg/dL Normal 7.6-11.0 [facility] Comment on above: Performed By: #### L 100.0100, L500.2500 #### [facility] [address] [place], [address] Chloride [Moles/Vol] 100 mmol/L Normal 98-108 [facility] Comment on above: Performed By: #### L 100.0100, L500.2500 #### [facility] [address] [place], [address] CO2 [Moles/Vol] 23.1 mmol/L Normal 21.0-32.0 [facility] Comment on above: Performed By: #### L 100.0100, L500.2500 #### [facility] [address] [place], [address] Creatinine [Mass/Vol] 0.93 mg/dL Normal 0.70-1.20 [facility] Comment on above: Performed By: #### L 100.0100, L500.2500 #### [facility] [address] [place], [address] ECRCL 83.78 ml/min Normal 50-250 [facility] Comment on above: Performed By: #### L 100.0100, L500.2500 #### [facility] [address] [place], [address] GAP 14 Normal 5-15 [facility] Comment on above: Performed By: #### L 100.0100, L500.2500 #### [facility] [address] [place], [address] GFR/1.73 sq M.predicted among non-blacks MDRD (S/P/Bld) [Vol rate/Area] 89 mL/min/{1.73_m2} Normal >60 [facility] Comment on above: Result Comment: mL/m in/1.73m2 CKD-EPI Creatinine Equation (2020) Performed By: #### L 100.0100, L500.2500 #### [facility] [address] [place], [address] Glucose [Mass/Vol] 131 mg/dL High 70-99 [facility] Comment on above: Performed By: #### L 100.0100, L500.2500 #### [facility] [address] [place], [address] Potassium [Moles/Vol] 3.8 mmol/L Normal 3.3-5.1 [facility] Comment on above: Performed By: #### L 100.0100, L500.2500 #### [facility] [address] [place], [address] Sodium [Moles/Vol] 137 mmol/L Normal 133-145 [facility] Comment on above: Performed By: #### L 100.0100, L500.2500 #### [facility] [address] [place], [address] Urea nitrogen [Mass/Vol] 13 mg/dL Normal 4-19 [facility] Comment on above: Performed By: #### L 100.0100, L500.2500 #### [facility] [address] [place], [address] Basophil percentageOrdered B y: Desmond Vieira on 09-16-2024 Basophils/100 WBC (Bld) 0.6 % 0-1 [facility] Bilirubin Test strip Ql (U)O rdered By: Desmond Vieira on 09-16-2024 Bilirubin Ql (U) Negative Negative [facility] CBC W/Diff, Automatedon 08-20 0-2024 Absolute Lymph 1.46 X10 3/uL Normal 0.83-4.51 [facility] Comment on above: Performed By: #### L 100.0100, L500.2500 #### [facility] [address] [place], [address] Absolute Neut 6.8 X10 3/uL Normal 2.0-7.7 [facility] Comment on above: Performed By: #### L 100.0100, L500.2500 #### [facility] [address] [place], [address] Basophils/100 WBC (Bld) 0.6 % Normal 0-1 [facility] Comment on above: Performed By: #### L 100.0100, L500.2500 #### [facility] [address] [place], [address] Eosinophils/100 WBC (Bld) 0.3 % Normal 0-5 [facility] Comment on above: Performed By: #### L 100.0100, L500.2500 #### [facility] [address] [place], [address] Erythrocyte distribution width (RBC) [Ratio] 13.7 % Normal 11.6-14.6 [facility] Comment on above: Performed By: #### L 100.0100, L500.2500 #### [facility] [address] [place], [address] Hematocrit (Bld) [Volume fraction] 44.0 % Normal 40-54 [facility] Comment on above: Performed By: #### L 100.0100, L500.2500 #### [facility] [address] [place], [address] Hemoglobin (Bld) [Mass/Vol] 15.5 g/dL Normal 13.0-16.5 [facility] Comment on above: Performed By: #### L 100.0100, L500.2500 #### [facility] [address] [place], [address] IG% 0.500 Normal 0.0-0.9 [facility] Comment on above: Result Comment: IG% - Immature Granulocytes (promyelocytes, myelocytes and metamyelocytes) > 1% indicates that a LEFT SHIFT is Present. Performed By: #### L 100.0100, L500.2500 #### [facility] [address] [place], [address] Lymphocytes/100 WBC (Bld) 16.6 % Low 19-41 [facility] Comment on above: Performed By: #### L 100.0100, L500.2500 #### [facility] [address] [place], [address] MCH (RBC) [Entitic mass] 30.6 pg Normal 27.0-32.0 [facility] Comment on above: Performed By: #### L 100.0100, L500.2500 #### [facility] [address] [place], [address] MCHC (RBC) [Mass/Vol] 35.2 g/dL Normal 32-36 [facility] Comment on above: Performed By: #### L 100.0100, L500.2500 #### [facility] [address] [place], [address] MCV (RBC) [Entitic vol] 87.0 fL Normal 80-94 [facility] Comment on above: Performed By: #### L 100.0100, L500.2500 #### [facility] [address] [place], [address] Monocytes/100 WBC (Bld) 5.1 % Normal 0-10 [facility] Comment on above: Performed By: #### L 100.0100, L500.2500 #### [facility] [address] [place], [address] Neutrophils/100 WBC (Bld) 76.9 % High 47-70 [facility] Comment on above: Performed By: #### L 100.0100, L500.2500 #### [facility] [address] [place], [address] Nucleated RBC (Bld) [#/Vol] 0 10*3/uL Normal 0-5 [facility] Comment on above: Performed By: #### L 100.0100, L500.2500 #### [facility] [address] [place], [address] Platelet mean volume (Bld) [Entitic vol] 9.6 fL Normal 6.2-12.0 [facility] Comment on above: Performed By: #### L 100.0100, L500.2500 #### [facility] [address] [place], [address] Platelets (Bld) [#/Vol] 288 10*3/uL Normal 150-450 [facility] Comment on above: Performed By: #### L 100.0100, L500.2500 #### [facility] [address] [place], [address] RBC (Bld) [#/Vol] 5.06 10*6/uL Normal 4.6-6.2 [facility] Comment on above: Performed By: #### L 100.0100, L500.2500 #### [facility] [address] [place], [address] RDW SD 43.3 fl Normal 35.1-43.9 [facility] Comment on above: Performed By: #### L 100.0100, L500.2500 #### [facility] [address] [place], [address] WBC (Bld) [#/Vol] 8.8 10*3/uL Normal 4.4-11.0 [facility] Comment on above: Performed By: #### L 100.0100, L500.2500 #### [facility] [address] [place], [address] Carbon dioxide, total [Moles /volume] in Central venous bloodOrdered By: Desmond Vieira on 09-16-2024 CO2 [Moles/Vol] 23.1 mmol/L 21.0-32.0 [facility] Chloride assayOrdered By: Manohar Vieira on 09-16-2024 Chloride [Moles/Vol] 100 mmol/L 98-108 [facility] Emergency Department Summary on 09-16-2024 Emergency Department Summary [facility] Medical Records Department [address] [place] [address] Emergency Department Summary 09/16/24 MR#: [id number] Acct: [id number] Name: MARANDA ZHANG Rep #: [id number] : [id number] 69 From: Desmond Vieira DO PCP: Dr. Diana Randall, DO Status:DEP ER Location: ED HPI History of Present Illness Chief Complaint: Abd Pain Narrative Narrative: Chief complaint and HPI: Left lower quadrant abdominal pain. 69-year-old male with past medical history of COPD, DM2, HTN, and history of diverticulitis presents for evaluation of left lower quadrant abdominal pain. Onset this morning. Associated symptoms are nausea, vomiting, diarrhea. Patient states it feels similar to his previous diverticulitis. Review of systems: See HPI Medications: As listed on the chart Allergies: As listed on the chart PFSH: Per chart Vital signs: As listed on the chart. Reviewed. Physical exam: Gen: A O x3, NAD Head: Normocephalic, atraumatic Eyes: No sclera icterus, conjunctiva clear ENT: Moist mucous membranes Neck: Trachea midline, No JVD CV: RRR, no murmurs, no peripheral edema Resp: Lungs CTA BL, no w/r/c GI: Abd soft, non-distended, left lower quadrant abdominal pain, no rebound or rigidity : No CVA tenderness Musc: Full ROM, no deformity Skin: Warm, dry Neuro: Alert, oriented, grossly intact, sensation intact Psych: Cooperative, appropriate mood and affect [facility] Medical History (Reviewed 06/25/24 @ 09:05 by Maritza Howard QUANTITATIVE EQUITY HEAD, QUANTITATIVE EQUITY HEAD-C) Hypercholesterolemia Atherosclerosis of kenaitze coronary artery Diabetes mellitus Benign prostatic hyperplasia Hypercalcemia Former smoker COPD (chronic obstructive pulmonary disease) BPPV (benign paroxysmal positional vertigo) Hearing loss in right ear Knee pain Shoulder pain HTN (hypertension) Home Medications ???Medication ???Instructions ???Recorded ???Last Taken ???Type amlodipine 10 mg tablet 10 mg PO DAILY 05/01/20 09/16/24 H istory hydrochlorothiazide 25 mg tablet 25 mg PO DAILY 05/01/20 09/16/24 H istory losartan 25 mg tablet 25 mg PO DAILY 05/01/20 09/16/24 H istory tamsulosin 0.4 mg capsule 0.4 mg PO DAILY 06/14/23 09/16/24 History fluticasone fur. 100 mcg-umeclid 1 inh inhalation Q24H 12/13/23 History 62.5 mcg-vilant 25 mcg inhalat.powder (Trelegy Ellipta) ondansetron 8 mg disintegrating 8 mg PO Q8H PRN nausea and 4 Unknown Rx tablet vomiting #15 tabs aspirin 81 mg tablet,delayed 81 mg PO QDAY 06/25/24 09/15/24 Hi story release (Adult Aspirin Regimen) ezetimibe 10 mg tablet (Zetia) 10 mg PO QDAY #30 tabs 06/25/24 Un known Rx amoxicillin 875 mg-potassium 1 tab PO BID 7 days #14 tabs 09/16 Unknown Rx clavulanate 125 mg tablet ondansetron 4 mg disintegrating 4 mg PO Q8H PRN PRN Nausea #10 tab s 09/16/24 Unknown Rx tablet Allergy/AdvReac Type Severity Reaction Status Date / Time No Known Allergies Allergy Verified 09/16/24 11:14 Family History (Reviewed 06/25/24 @ 09:05 by Maritza Howard QUANTITATIVE EQUITY HEAD, QUANTITATIVE EQUITY HEAD-C) Other Alzheimers disease Cancer Multiple sclerosis Surgical History History of herniorrhaphy History of back surgery Social History Smoking Status: Former smoker quit date: 03/20/06 EXAM Physical Exam Const Vital Signs: 09/16/24 11:11 09/16/24 12:46 09/16/24 13:54 Temperature 97.6 F L 97.6 F L Temperature Source Oral Pulse Rate 72 72 72 Respiratory Rate 18 18 18 Blood Pressure 162/82 H 174/73 H 174/73 H Blood Pressure Mean 108 106 106 Pulse Ox 100 100 100 Oxygen Delivery Method Room Air Room Air MDM MDM MDM Narrative Medical decision making narrative: 69-year-old male with past medical history of COPD, DM2, HTN, and history of diverticulitis presents for evaluation of left lower quadrant abdominal pain. Onset this morning. Associated symptoms are nausea, vomiting, diarrhea. States it feels similar to his diverticulitis in the past. Differential diagnosis includes but is not limited to diverticulitis, viral gastroenteritis, urolithiasis, UTI. NS bolus, morphine, Zofran ordered for symptoms. Laboratory workup ordered including CT abdomen pelvis. CBC without leukocytosis or anemia. Platelets unremarkable. BMP unremarkable except for mild hyperglycemia. Patient is a diabetic. UA negative for UTI. CT abdomen pelvis shows circumferential bladder wall thickening, which may be partially secondary to lack of distention. Prostate has a nodular appearance with calcifications. This will need to be further worked up outpatient. There is diverticulosis of the descending and sigmoid colon without acute diverticulitis. Patient has a hydrocele in the sc (more content not included)... Normal [facility] Eosinophil percentageOrdered By: Desmond Vieira on 09-16-2024 Eosinophils/100 WBC (Bld) 0.3 % 0-5 [facility] Erythrocyte distribution wid th ratioOrdered By: [facility] CenterWilfredMiriam on 09-16-2024 Erythrocyte distribution width (RBC) [Ratio] 13.7 % 11.6-14.6 [facility] Erythrocyte distribution wid th standard deviationOrdered By: [facility] CenterWilfred Miriam on 09-16-2024 Erythrocyte distribution width (RBC) [Ratio] 43.3 fl 35.1-43.9 [facility] Glomerular filtration rate ( GFR) estimation/1.73 sq m using serum, plasma, or whole bOrdered By: [facility] HospitalJesus Manuel on 09-16-2024 GFR/1.73 sq M.predicted among non-blacks MDRD (S/P/Bld) [Vol rate/Area] 89 mL/min/{1.73_m2} >60 [facility] Comment on above: mL/min/1.73m2 CKD-EP I Creatinine Equation (2020) Hematocrit Auto (Bld) [Volum e fraction]Ordered By: Desmond Dariel on 09-16-2024 Hematocrit (Bld) [Volume fraction] 44.0 % 40-54 [facility] Hemoglobin measurementOrdere d By: Desmond Dariel on 09-16-2024 Hemoglobin (Bld) [Mass/Vol] 15.5 g/dL 13.0-16.5 [facility] Immature granulocytes/100 WB C Auto (Bld)Ordered By: Desmondearle Vieira on 09-16-2024 Immature granulocytes/100 WBC (Bld) 0.500 % 0.0-0.9 [facility] Comment on above: IG% - Immature Granu locytes (promyelocytes, myelocytes and metamyelocytes) > 1% indicates that a LEFT SHIFT is Present. Ketones Test strip Ql (U)Ord ered By: Desmond Vieira on 09-16-2024 Ketones Ql (U) Negative Negative [facility] MCV (mean corpuscular volume ) determinationOrdered By: Desmond Vieira on 09-16-2024 MCV (RBC) [Entitic vol] 87.0 fL 80-94 [facility] Mean corpuscular hemoglobin (MCH) determinationOrdered By: Desmond Vieira on 09-16-2024 MCH (RBC) [Entitic mass] 30.6 pg 27.0-32.0 [facility] Mean corpuscular hemoglobin concentration (MCHC) determinationOrdered By: Desmondearle Vieira on 09-16-2024 MCHC (RBC) [Mass/Vol] 35.2 g/dL 32-36 [facility] Mean platelet volume determi nationOrdered By: Desmond Vieira on 09-16-2024 Platelet mean volume (Bld) [Entitic vol] 9.6 fL 6.2-12.0 [facility] Microscopic analysis of urin e for red blood cells (RBC)Ordered By: Desmond Vieira on 09-16-2024 Microscopic analysis of urine for red blood cells (RBC) 0 SEEN /hpf 0-5 [facility] Monocyte percentageOrdered B y: Desmond Vieira on 09-16-2024 Monocytes/100 WBC (Bld) 5.1 % 0-10 [facility] Mucus LM Ql (Urine sed)Order ed By: Desmond Vieira on 09-16-2024 Mucus Ql (Urine sed) 0 SEEN /hpf [facility] Neutrophil percentageOrdered By: Desmond Vieira on 09-16-2024 Neutrophils/100 WBC (Bld) 76.9 % High 47-70 [facility] Nitrite Test strip Ql (U)Ord ered By: Desmond Vieira on 09-16-2024 Nitrite Ql (U) Negative Negative [facility] Nucleated red blood cell per centageOrdered By: Desmond Vieira on 09-16-2024 Nucleated RBC/100 WBC (Bld) [Ratio] 0 % 0-5 [facility] Platelet countOrdered By: Manohar Vieira on 09-16-2024 Platelets (Bld) [#/Vol] 288 10*3/uL 150-450 [facility] Potassium measurement (mass/ volume)Ordered By: Desmond Vieira on 09-16-2024 Potassium (Unsp spec) [Mass/Vol] 3.8 mmol/L 3.3-5.1 [facility] Protein Test strip Ql (U)Ord ered By: Desmond Vieira on 09-16-2024 Protein Ql (U) Negative Negative [facility] RBC Auto (Bld) [#/Vol]Ordere d By: Desmond Vieira on 09-16-2024 RBC (Bld) [#/Vol] 5.06 10*6/uL 4.6-6.2 [facility] Serum creatinine measurement (mass/volume)Ordered By: Desmond Vieira on 09-16-2024 Creatinine [Mass/Vol] 0.93 mg/dL 0.70-1.20 [facility] Serum glucose measurement (m ass/volume)Ordered By: Desmond Vieira on 09-16-2024 Glucose [Mass/Vol] 131 mg/dL High 70-99 [facility] Serum or plasma calcium aden urement (mass/volume)Ordered By: Desmond Pineda on 09-16-2024 Calcium [Mass/Vol] 9.8 mg/dL 7.6-11.0 [facility] Serum or plasma urea nitroge n measurement (mass/volume)Ordered By: Desmond Vieira on 09-16-2024 Urea nitrogen [Mass/Vol] 13 mg/dL 4-19 [facility] Sodium levelOrdered By: Bernardo Vieira on 09-16-2024 Sodium [Moles/Vol] 137 mmol/L 133-145 [facility] Squamous epithelial cells de tection in urine sediment by light microscopyOrdered By: Desmond Vieira on 09-16-2024 Epithelial cells.squamous LM Ql (Urine sed) 0 SEEN /hpf 0-5 [facility] Urinalysis, Completeon 09-16 BACTERIA 0 SEEN Normal None Seen [facility] Comment on above: Order Comment: CLEAN CATCH Performed By: #### L 400.0001 #### [facility] [address] [place], [address] EPI,SQUAMOUS 0 SEEN Normal 0-5 [facility] Comment on above: Order Comment: CLEAN CATCH Performed By: #### L 400.0001 #### [facility] [address] [place], [address] Mucus Ql (Urine sed) 0 SEEN Normal [facility] Comment on above: Order Comment: CLEAN CATCH Performed By: #### L 400.0001 #### [facility] [address] [place], [address] RBC 0 SEEN Normal 0-5 [facility] Comment on above: Order Comment: CLEAN CATCH Performed By: #### L 400.0001 #### [facility] [address] [place], [address] WBC 0 SEEN Normal 0-5 [facility] Comment on above: Order Comment: CLEAN CATCH Performed By: #### L 400.0001 #### [facility] [address] [place], [address] Urine clarityOrdered By: Toro Vieira on 09-16-2024 Clarity (U) Clear Clear [facility] Urine color determinationOrd ered By: Desmond Vieira on 09-16-2024 Color (U) Yellow Yellow [facility] Urine glucose detectionOrder ed By: Desmond Vieira on 09-16-2024 Glucose Ql (U) Normal mg/dl Normal [facility] Urine leukocyte esterase det ection by dipstickOrdered By: Desmond Vieira on 09-16-2024 Leukocyte esterase Test strip Ql (U) Negative Negative [facility] Urine pHOrdered By: Desmond Bean Garth on 09-16-2024 pH (U) 8.0 [pH] 5.0 - 8.0 [facility] Urine sediment bacteria coun t by microscopy (number/high power field)Ordered By: Desmond Vieira on 09-16-2024 Bacteria LM.HPF (Urine sed) [#/Area] 0 /[HPF] None Seen [facility] Urine specific gravity measu rementOrdered By: [facility] RehabilitationjaeWilfredMiriam on 09-16-2024 Specific gravity (U) [Rel density] 1.015 1.002-1.03 0 [facility] Urine urobilinogen measureme ntOrdered By: Desmond Heydi on 09-16-2024 Urobilinogen Ql (U) Normal mg/dl Normal [facility] White blood cell (WBC) count Ordered By: Desmond Vieira on 09-16-2024 WBC (Bld) [#/Vol] 8.8 10*3/uL 4.4-11.0 [facility] White blood cell countOrdere d By: Desmond Vieira on 09-16-2024 White blood cell count 0 SEEN /hpf 0-5 [facility] 12 Lead EKG performed by [facility] on 06-25-2024 12 Lead EKG performed by [address] [address] 12 Lead EKG performed by [facility] 06/25/24 0803 MR#: [id number] Acct: [id number] Name: MARANDA ZHANG Rep #: [id number] : 1955 69 From: Maritza Howard NP QUANTITATIVE EQUITY HEAD-C Attending Dr: MIRIAM Lopez Status: SHIV MAYO Ordering Dr: Maritza Howard NP QUANTITATIVE EQUITY HEAD-C Date: 06/25/24 [place] [facility] [place] M C Admitted: [facility]/12 Lead EKG performed by [facility] ECG Report Interpretation -Sinus Rhythm WITHIN NORMAL LIMITSElectronically signed on 06/26/2024 at 11:13 by Abel Perez Software Version [id number] 06/26/24 1115 Date Maritza Howard NP QUANTITATIVE EQUITY HEAD-C CC: Dr. Diana Randall, DO Date Dictated: 06/25/24802 Date Transcribed: 06/25/24802 Marketing Producer: JOSEPH Signed Normal [facility] Absolute lymphocyte countOrd ered By: Maritza Howard on 06-25-2024 Lymphocytes Auto (Unsp spec) [#/Vol] 1.98 10*3/uL 0.83-4.51 [facility] Absolute neutrophil countOrd ered By: Maritza Howard on 06-25-2024 Neutrophils (Bld) [#/Vol] 3.9 10*3/uL 2.0-7.7 [facility] Anion gap in Serum or Plasma Ordered By: Maritza Howard on 06-25-2024 Anion gap [Moles/Vol] 14 mmol/L 5-15 [facility] Automated lymphocyte count a s percentage of total leukocytesOrdered By: Maritza Howard on 06-25-2024 Lymphocytes/100 WBC Auto (Unsp spec) 29.8 % 19-41 [facility] BUN/creatinine ratioOrdered By: Maritza Howard on 06-25-2024 Urea nitrogen/Creatinine [Mass ratio] 14.8 mg/mg 10-20 [facility] Basophil percentageOrdered B y: Maritza Howard on 06-25-2024 Basophils/100 WBC (Bld) 0.9 % 0-1 [facility] Bilirubin, totalOrdered By: Maritza Howard on 06-25-2024 Bilirubin [Mass/Vol] 0.42 mg/dL 0.00-1.30 [facility] CBC W/Diff, Automatedon Absolute Lymph 1.98 X10 3/uL Normal 0.83-4.51 [facility] Comment on above: Performed By: #### L 500.4050, L100.0100, L501.9520, L500.4100 #### [facility] [address] [place], [address] Absolute Neut 3.9 X10 3/uL Normal 2.0-7.7 [facility] Comment on above: Performed By: #### L 500.4050, L100.0100, L501.9520, L500.4100 #### [facility] [address] [place], [address] Basophils/100 WBC (Bld) 0.9 % Normal 0-1 [facility] Comment on above: Performed By: #### L 500.4050, L100.0100, L501.9520, L500.4100 #### [facility] [address] [place], [address] Eosinophils/100 WBC (Bld) 1.7 % Normal 0-5 [facility] Comment on above: Performed By: #### L 500.4050, L100.0100, L501.9520, L500.4100 #### [facility] [address] [place], [address] Erythrocyte distribution width (RBC) [Ratio] 13.2 % Normal 11.6-14.6 [facility] Comment on above: Performed By: #### L 500.4050, L100.0100, L501.9520, L500.4100 #### [facility] [address] [place], [address] Hematocrit (Bld) [Volume fraction] 47.6 % Normal 40-54 [facility] Comment on above: Performed By: #### L 500.4050, L100.0100, L501.9520, L500.4100 #### [facility] [address] [place], [address] Hemoglobin (Bld) [Mass/Vol] 16.4 g/dL Normal 13.0-16.5 [facility] Comment on above: Performed By: #### L 500.4050, L100.0100, L501.9520, L500.4100 #### [facility] [address] [place], [address] IG% 0.300 Normal 0.0-0.9 [facility] Comment on above: Result Comment: IG% - Immature Granulocytes (promyelocytes, myelocytes and metamyelocytes) > 1% indicates that a LEFT SHIFT is Present. Performed By: #### L 500.4050, L100.0100, L501.9520, L500.4100 #### [facility] [address] [place], [address] Lymphocytes/100 WBC (Bld) 29.8 % Normal 19-41 [facility] Comment on above: Performed By: #### L 500.4050, L100.0100, L501.9520, L500.4100 #### [facility] [address] [place], [address] MCH (RBC) [Entitic mass] 30.3 pg Normal 27.0-32.0 [facility] Comment on above: Performed By: #### L 500.4050, L100.0100, L501.9520, L500.4100 #### [facility] [address] [place], [address] MCHC (RBC) [Mass/Vol] 34.5 g/dL Normal 32-36 [facility] Comment on above: Performed By: #### L 500.4050, L100.0100, L501.9520, L500.4100 #### [facility] [address] [place], [address] MCV (RBC) [Entitic vol] 87.8 fL Normal 80-94 [facility] Comment on above: Performed By: #### L 500.4050, L100.0100, L501.9520, L500.4100 #### [facility] [address] [place], [address] Monocytes/100 WBC (Bld) 8.3 % Normal 0-10 [facility] Comment on above: Performed By: #### L 500.4050, L100.0100, L501.9520, L500.4100 #### [facility] [address] [place], [address] Neutrophils/100 WBC (Bld) 59.0 % Normal 47-70 [facility] Comment on above: Performed By: #### L 500.4050, L100.0100, L501.9520, L500.4100 #### [facility] [address] [place], [address] Nucleated RBC (Bld) [#/Vol] 0 10*3/uL Normal 0-5 [facility] Comment on above: Performed By: #### L 500.4050, L100.0100, L501.9520, L500.4100 #### [facility] [address] [place], [address] Platelet mean volume (Bld) [Entitic vol] 10.1 fL Normal 6.2-12.0 [facility] Comment on above: Performed By: #### L 500.4050, L100.0100, L501.9520, L500.4100 #### [facility] [address] [place], [address] Platelets (Bld) [#/Vol] 298 10*3/uL Normal 150-450 [facility] Comment on above: Performed By: #### L 500.4050, L100.0100, L501.9520, L500.4100 #### [facility] [address] [place], [address] RBC (Bld) [#/Vol] 5.42 10*6/uL Normal 4.6-6.2 [facility] Comment on above: Performed By: #### L 500.4050, L100.0100, L501.9520, L500.4100 #### [facility] [address] [place], [address] RDW SD 42.8 fl Normal 35.1-43.9 [facility] Comment on above: Performed By: #### L 500.4050, L100.0100, L501.9520, L500.4100 #### [facility] [address] [place], [address] WBC (Bld) [#/Vol] 6.6 10*3/uL Normal 4.4-11.0 [facility] Comment on above: Performed By: #### L 500.4050, L100.0100, L501.9520, L500.4100 #### [facility] [address] [place], [address] Calculated very low density lipoprotein (VLDL) cholesterol measurementOrdered By: Maritza Howard on 06-25-2024 Calculated very low density lipoprotein (VLDL) cholesterol measurement 16 mg/dL 5-40 [facility] VLDL Cholesterol 16 mg/dL 5-40 [facility] Carbon dioxide, total [Moles /volume] in Central venous bloodOrdered By: Maritza Howard on 06-25-2024 CO2 [Moles/Vol] 24.5 mmol/L 21.0-32.0 [facility] Cardiology Visit Reporton Cardiology Visit Report [facility] [address] [place] [address] OFFICE VISIT Date of Service: 06/25/24 MR#: [id number] Acct: [id number] Name: LEATHAMARANDA BHAT Rep #: [id number] : 1955 Provider: MIRIAM polanco Age/Sex: 69/M Location: [facility] Status: Signed HPI HPI History of Present Illness Details: This is a 69-year-old male who presents to the office today for a cardiovascular follow-up visit. He underwent a cardiac calcium score in May 2022 with a score of 2189. He followed with cardiology for further workup, at that time he denied any symptoms or events. He does have a history of hypertension, and hypercholesterolemia. From a cardiac standpoint, the patient is doing well. He does have occasional palpitations-he describes this as a quick pain and thump and then its over. He does acknowledge chest pain/tightness. This is located left chest. He states this occurs when he is driving or sitting. He denies pressure or heaviness. He denies SOB, Orthopnea, and PND. He does not have bleeding issues; no blood in urine, stool, or nosebleeds. He does acknowledge a decrease in energy level. He denies any decrease myalgias, or claudication. He does not have edema, or sudden weight gain. He denies lightheadedness, dizziness, syncopal or near syncopal episodes, and headaches. Intake Vital Signs 12/15/23 09:11 06/25/24 08:03 06/25/24 08:03 Height 5 ft 8 in 5 ft 8 in 5 ft 8 in Weight: 202 lb BMI 30.7 BP 135/75 H Blood Pressure Location Lt brachial Position Sitting Respiration 18 Pulse 72 Pulse Source Monitor Pulse Oximetry (%) 96 Intake Visit Reasons: 1 Y [employer] Office Required: No Is patient in pain?: No Allergies No Known Allergies Allergy (Verified 06/25/24 08:24) Medications ???Medication ???Instructions ???Recorded ???Confirmed ???Type amlodipine 10 mg tablet 10 mg PO DAILY 05/01/20 06/25/24 H istory hydrochlorothiazide 25 mg tablet 25 mg PO DAILY 05/01/20 06/25/24 H istory losartan 25 mg tablet 25 mg PO DAILY 05/01/20 06/25/24 H istory tamsulosin 0.4 mg capsule 0.4 mg PO DAILY 06/14/23 06/25/24 History fluticasone fur. 100 mcg-umeclid 1 inh inhalation Q24H 12/13/2311/11 History 62.5 mcg-vilant 25 mcg inhalat.powder (Trelegy Ellipta) hydroxyzine pamoate 25 mg capsule 25 mg PO TID PRN 12/13/23 5 History ondansetron 8 mg disintegrating 8 mg PO Q8H PRN nausea and 4 06/25/24 Rx tablet vomiting #15 tabs aspirin 81 mg tablet,delayed 81 mg PO QDAY 06/25/24 06/25/24 Hi story release (Adult Aspirin Regimen) Have you fallen in the past year?: No PFSH Medical History (Reviewed 06/25/24 @ 09:05 by Maritza Howard QUANTITATIVE EQUITY HEAD, QUANTITATIVE EQUITY HEAD-C) Hypercholesterolemia Atherosclerosis of kenaitze coronary artery Diabetes mellitus Benign prostatic hyperplasia Hypercalcemia Former smoker COPD (chronic obstructive pulmonary disease) BPPV (benign paroxysmal positional vertigo) Hearing loss in right ear Knee pain Shoulder pain HTN (hypertension) Surgical History (Reviewed 06/25/24 @ 09:05 by Maritza Howard QUANTITATIVE EQUITY HEAD, QUANTITATIVE EQUITY HEAD-C) History of herniorrhaphy History of back surgery Family History Other Alzheimers disease Cancer Multiple sclerosis Social History (Reviewed 06/25/24 @ 09:05 by Maritza Howard QUANTITATIVE EQUITY HEAD, QUANTITATIVE EQUITY HEAD-C) Smoking Status: Former smoker quit date: 03/20/06 ROS Const Const: Positive for fatigue; Negative for weakness, fever(s), headache(s), chills, frequent falls, weight gain or weight loss Eyes Eyes: Negative for blind spots, loss of peripheral vision, transient loss of vision, blurry vision, change in vision, double vision, floaters or tunnel vision ENT ENT: Negative for headache(s), dizziness, Nosebleed/epistaxis, balance problems or neck pain Cardio Chest Pain: Yes Frequency: other Character: tightness Onset: at rest Location: left chest Duration: minutes Palpitations: Yes (Quick thump) Edema: None Muscle aches with walking: None Resp Respiratory: Negative for SOB with activity, SOB at rest or SOB orthopnea SOB lying down GI GI: Negative nausea, vomiting, heartburn, bloating, vomiting blood/hematemesis, bright, red blood in stools or black,tarry stools Musc Musc: Negative for muscle aches/ myalgia, muscle weakness, joint pain or balance problems Neuro Neuro: Negative for dizziness, lightheadedness, near syncope, syncope, orthostatic symptoms, frequent falls, headache(s), weakness, blurry vision or double vision Shay Hematologic/Lymphatic: Negative for easy bleeding or easy bruising Endo Endo: Positive for fatigue Cardiology Exam Const Appearance: cooperative, comfortable and no acute distress Nutritional Appearance: obese Head Head: normal to i (more content not included)... Normal [facility] Chloride assayOrdered By: Dilshad Howard on 06-25-2024 Chloride [Moles/Vol] 101 mmol/L 98-108 [facility] Comprehensive Metabolic Prof ilon 06-25-2024 Albumin [Mass/Vol] 4.6 g/dL Normal 3.4-4.8 [facility] Comment on above: Performed By: #### L 500.4050, L100.0100, L501.9520, L500.4100 #### [facility] [address] [place], [address] Albumin/Globulin [Mass ratio] 1.3 {ratio} Normal 0.9-2.4 [facility] Comment on above: Performed By: #### L 500.4050, L100.0100, L501.9520, L500.4100 #### [facility] [address] [place], [address] ALK PHOS 68 U/L Normal 40-129 [facility] Comment on above: Performed By: #### L 500.4050, L100.0100, L501.9520, L500.4100 #### [facility] [address] [place], [address] ALT [Catalytic activity/Vol] 17 U/L Normal <=46 [facility] Comment on above: Performed By: #### L 500.4050, L100.0100, L501.9520, L500.4100 #### [facility] [address] [place], [address] AST [Catalytic activity/Vol] 23 U/L Normal <=37 [facility] Comment on above: Performed By: #### L 500.4050, L100.0100, L501.9520, L500.4100 #### [facility] [address] [place], [address] Bilirubin [Mass/Vol] 0.42 mg/dL Normal 0.00-1.30 [facility] Comment on above: Performed By: #### L 500.4050, L100.0100, L501.9520, L500.4100 #### [facility] [address] [place], [address] BUN/CRE 14.8 RATIO Normal 10-20 [facility] Comment on above: Performed By: #### L 500.4050, L100.0100, L501.9520, L500.4100 #### [facility] [address] [place], [address] Calcium [Mass/Vol] 9.8 mg/dL Normal 7.6-11.0 [facility] Comment on above: Performed By: #### L 500.4050, L100.0100, L501.9520, L500.4100 #### [facility] [address] [place], [address] Chloride [Moles/Vol] 101 mmol/L Normal 98-108 [facility] Comment on above: Performed By: #### L 500.4050, L100.0100, L501.9520, L500.4100 #### [facility] [address] [place], [address] CO2 [Moles/Vol] 24.5 mmol/L Normal 21.0-32.0 [facility] Comment on above: Performed By: #### L 500.4050, L100.0100, L501.9520, L500.4100 #### [facility] [address] [place], [address] Creatinine [Mass/Vol] 1.10 mg/dL Normal 0.70-1.20 [facility] Comment on above: Performed By: #### L 500.4050, L100.0100, L501.9520, L500.4100 #### [facility] [address] [place], [address] GAP 14 Normal 5-15 [facility] Comment on above: Performed By: #### L 500.4050, L100.0100, L501.9520, L500.4100 #### [facility] [address] [place], [address] GFR/1.73 sq M.predicted among non-blacks MDRD (S/P/Bld) [Vol rate/Area] 73 mL/min/{1.73_m2} Normal >60 [facility] Comment on above: Result Comment: mL/m in/1.73m2 CKD-EPI Creatinine Equation (2020) Performed By: #### L 500.4050, L100.0100, L501.9520, L500.4100 #### [facility] [address] [place], [address] Globulin (S) [Mass/Vol] 3.4 g/dL Normal 2.2-4.2 [facility] Comment on above: Performed By: #### L 500.4050, L100.0100, L501.9520, L500.4100 #### [facility] [address] [place], [address] Glucose [Mass/Vol] 113 mg/dL High 70-99 [facility] Comment on above: Performed By: #### L 500.4050, L100.0100, L501.9520, L500.4100 #### [facility] [address] [place], [address] Potassium [Moles/Vol] 4.0 mmol/L Normal 3.3-5.1 [facility] Comment on above: Performed By: #### L 500.4050, L100.0100, L501.9520, L500.4100 #### [facility] [address] [place], [address] Sodium [Moles/Vol] 139 mmol/L Normal 133-145 [facility] Comment on above: Performed By: #### L 500.4050, L100.0100, L501.9520, L500.4100 #### [facility] [address] [place], [address] T PROT 7.9 g/dL Normal 5.9-8.4 [facility] Comment on above: Performed By: #### L 500.4050, L100.0100, L501.9520, L500.4100 #### [facility] [address] [place], [address] Urea nitrogen [Mass/Vol] 16 mg/dL Normal 4-19 [facility] Comment on above: Performed By: #### L 500.4050, L100.0100, L501.9520, L500.4100 #### [facility] [address] [place], [address] Eosinophil percentageOrdered By: Maritza Howard on 06-25-2024 Eosinophils/100 WBC (Bld) 1.7 % 0-5 [facility] Erythrocyte distribution wid th (RBC) [Ratio]Ordered By: Maritza Howard on 06-25-2024 Erythrocyte distribution width (RBC) [Entitic vol] 42.8 fL 35.1-43.9 [facility] Erythrocyte distribution wid th ratioOrdered By: Maritza Howard on 06-25-2024 Erythrocyte distribution width (RBC) [Ratio] 13.2 % 11.6-14.6 [facility] Erythrocyte distribution wid th standard deviationOrdered By: Maritza Howard on 06-25-2024 Erythrocyte distribution width (RBC) [Ratio] 42.8 fl 35.1-43.9 [facility] GFR/1.73 sq M.predicted marcin g non-blacks MDRD (S/P/Bld) [Vol rate/Area]Ordered By: Maritza Howard on 06-25-2024 Estimated GFR (MDRD) Non-Af Amer 73 >60 [facility] Comment on above: mL/min/1.73m2 CKD-EP I Creatinine Equation (2020) Glomerular filtration rate ( GFR) estimation/1.73 sq m using serum, plasma, or whole bOrdered By: Maritza Howard on 06-25-2024 GFR/1.73 sq M.predicted among non-blacks MDRD (S/P/Bld) [Vol rate/Area] 73 mL/min/{1.73_m2} >60 [facility] Comment on above: mL/min/1.73m2 CKD-EP I Creatinine Equation (2020) Hematocrit Auto (Bld) [Volum e fraction]Ordered By: Maritza Howard on 06-25-2024 Hematocrit (Bld) [Volume fraction] 47.6 % 40-54 [facility] Hemoglobin measurementOrdere d By: Maritza Howard on 06-25-2024 Hemoglobin (Bld) [Mass/Vol] 16.4 g/dL 13.0-16.5 [facility] Immature granulocytes/100 WB C Auto (Bld)Ordered By: Maritza Howard on 06-25-2024 Immature granulocytes/100 WBC (Bld) 0.300 % 0.0-0.9 [facility] Comment on above: IG% - Immature Granu locytes (promyelocytes, myelocytes and metamyelocytes) > 1% indicates that a LEFT SHIFT is Present. LDL calc ser/plasOrdered By: Maritza Howard on 06-25-2024 Cholesterol in LDL [Mass/Vol] 137 mg/dL [facility] Comment on above: Wiihkbtvqf=226-840 m g/dL & Higher Sliq=214 mg/dL or greater LDL Cholesterol, Calculated 137 mg/dL [facility] Comment on above: Bucpryhpwt=591-388 m g/dL & Higher Ptqg=812 mg/dL or greater Laboratory - Chemistry and C hemistry - challengeOrdered By: Maritza Howard on 06-25-2024 AST [Catalytic activity/Vol] 23 U/L <38 [facility] Lipid Profileon 06-25-2024 CHOL:HDL 3.21 Normal [facility] Comment on above: Performed By: #### L 500.4050, L100.0100, L501.9520, L500.4100 #### [facility] [address] [place], [address] Cholesterol [Mass/Vol] 221 mg/dL High <=200 [facility] Comment on above: Result Comment: Chol esterol level, Desirable <200 mg/dL Borderline high cholesterol 200-239 mg/dL High cholesterol >=240 mg/dL Recommendations of the NCEP Adult Treatment Panel for the following risk-cutoff thresholds for the [place] population. Performed By: #### L 500.4050, L100.0100, L501.9520, L500.4100 #### [facility] [address] [place], [address] Cholesterol in HDL [Mass/Vol] 69 mg/dL Normal [facility] Comment on above: Result Comment: [place] Cholesterol Education Program (NCEP) guidelines: <40 mg/dL: Low HDL-cholesterol (major risk factor for CHD) >= 60 mg/dL: High HDL-cholesterol (negative risk factor for CHD) HDL-cholesterol is affected by a number of factors, e.g. smoking, exercise, hormones, sex and age. Performed By: #### L 500.4050, L100.0100, L501.9520, L500.4100 #### [facility] [address] [place], [address] Cholesterol in LDL [Mass/Vol] 137 mg/dL Normal [facility] Comment on above: Result Comment: Bord istzzw=536-407 mg/dL Higher Uvry=205 mg/dL or greater Performed By: #### L 500.4050, L100.0100, L501.9520, L500.4100 #### [facility] [address] [place], [address] Cholesterol in VLDL [Mass/Vol] 16 mg/dL Normal 5-40 [facility] Comment on above: Performed By: #### L 500.4050, L100.0100, L501.9520, L500.4100 #### [facility] [address] [place], [address] Triglyceride [Mass/Vol] 78 mg/dL Normal [facility] Comment on above: Result Comment: The drugs N-Acetylcysteine and Metamizole may falsely depress this assay. Normal range: <150 mg/dL Borderline High: 150-199 mg/dL High: 200-499 mg/dL Very High: >500 mg/dL Performed By: #### L 500.4050, L100.0100, L501.9520, L500.4100 #### [facility] [address] [place], [address] Lymphocytes Auto (Unsp spec) [#/Vol]Ordered By: Maritza Howard on 06-25-2024 Lymphocytes (Bld) [#/Vol] 1.98 10*3/uL 0.83-4.51 [facility] Lymphocytes/100 WBC Auto (Un sp spec)Ordered By: Maritza Howard on 06-25-2024 Lymphocytes/100 WBC (Bld) 29.8 % 19-41 [facility] MCV (mean corpuscular volume ) determinationOrdered By: Maritza Howard on 06-25-2024 MCV (RBC) [Entitic vol] 87.8 fL 80-94 [facility] Mean corpuscular hemoglobin (MCH) determinationOrdered By: Maritza Howard on 06-25-2024 MCH (RBC) [Entitic mass] 30.3 pg 27.0-32.0 [facility] Mean corpuscular hemoglobin concentration (MCHC) determinationOrdered By: Maritza Howard on 06-25-2024 MCHC (RBC) [Mass/Vol] 34.5 g/dL 32-36 [facility] Mean platelet volume determi nationOrdered By: Maritza Howard on 06-25-2024 Platelet mean volume (Bld) [Entitic vol] 10.1 fL 6.2-12.0 [facility] Monocyte percentageOrdered B y: Maritza Howard on 06-25-2024 Monocytes/100 WBC (Bld) 8.3 % 0-10 [facility] Neutrophil percentageOrdered By: Maritza Howard on 06-25-2024 Neutrophils/100 WBC (Bld) 59.0 % 47-70 [facility] Nucleated red blood cell per centageOrdered By: Maritza Howard on 06-25-2024 Nucleated RBC/100 WBC (Bld) [Ratio] 0 % 0-5 [facility] Platelet countOrdered By: Dilshad Howard on 06-25-2024 Platelets (Bld) [#/Vol] 298 10*3/uL 150-450 [facility] Potassium (Unsp spec) [Mass/ Vol]Ordered By: Maritza Howard on 06-25-2024 Potassium [Moles/Vol] 4.0 mmol/L 3.3-5.1 [facility] Potassium measurement (mass/ volume)Ordered By: Maritza Howard on 06-25-2024 Potassium (Unsp spec) [Mass/Vol] 4.0 mmol/L 3.3-5.1 [facility] RBC Auto (Bld) [#/Vol]Ordere d By: Maritza Howard on 06-25-2024 RBC (Bld) [#/Vol] 5.42 10*6/uL 4.6-6.2 [facility] Screening total cholesterol/ high density lipoprotein (HDL) cholesterol ratioOrdered By: Maritza Howard on 06-25-2024 Cholesterol.total/Cho lesterol in HDL [Mass ratio] 3.21 {ratio} [facility] Serum creatinine measurement (mass/volume)Ordered By: Maritza Howard on 06-25-2024 Creatinine [Mass/Vol] 1.10 mg/dL 0.70-1.20 [facility] Serum globulin measurementOr dered By: Maritza Howard on 06-25-2024 Globulin (S) [Mass/Vol] 3.4 g/dL 2.2-4.2 [facility] Serum glucose measurement (m ass/volume)Ordered By: Maritza Howard on 06-25-2024 Glucose [Mass/Vol] 113 mg/dL High 70-99 [facility] Serum or plasma alanine robles otransferase (ALT) measurementOrdered By: Maritza Howard on 06-25-2024 ALT [Catalytic activity/Vol] 17 U/L <47 [facility] Serum or plasma albumin aden urement (mass/volume)Ordered By: Maritza Howard on 06-25-2024 Albumin [Mass/Vol] 4.6 g/dL 3.4-4.8 [facility] Serum or plasma albumin/glob ulin mass ratioOrdered By: Maritza Howard on 06-25-2024 Albumin/Globulin [Mass ratio] 1.3 {ratio} 0.9-2.4 [facility] Serum or plasma alkaline carol sphatase measurementOrdered By: Maritza Howard on 06-25-2024 ALP [Catalytic activity/Vol] 68 U/L 40-129 [facility] Serum or plasma calcium aden urement (mass/volume)Ordered By: Maritza Howard on 06-25-2024 Calcium [Mass/Vol] 9.8 mg/dL 7.6-11.0 [facility] Serum or plasma cholesterol in HDL measurement (mass/volume)Ordered By: Maritza Howard on 06-25-2024 Cholesterol in HDL [Mass/Vol] 69 mg/dL >40 [facility] Comment on above: National Cholesterol Education Program (NCEP) guidelines:<40 mg/dL: Low HDL-cholesterol (major risk factor for CHD)>= 60 mg/dL: High HDL-cholesterol (negative risk factor for CHD)HDL-cholesterol is affected by a number of factors, e.g. smoking, exercise, hormones, sex and age. Serum or plasma cholesterol measurement (mass/volume)Ordered By: Maritza Howard on 06-25-2024 Cholesterol [Mass/Vol] 221 mg/dL High <201 [facility] Comment on above: Cholesterol level, D esirable <200 mg/dLBorderline high cholesterol 200-239 mg/dLHigh cholesterol >=240 mg/dLRecommendations of the NCEP Adult Treatment Panel for the following risk-cutoff thresholds for the [place] population. Serum or plasma urea nitroge n measurement (mass/volume)Ordered By: Maritza Howard on 06-25-2024 Urea nitrogen [Mass/Vol] 16 mg/dL 4-19 [facility] Sodium levelOrdered By: Clare Howard on 06-25-2024 Sodium [Moles/Vol] 139 mmol/L 133-145 [facility] TSH DL <= 0.005 mIU/L QnOrde red By: Maritza Howard on 06-25-2024 Thyroid Stimulating Hormone (TSH) 3.470 uIU/mL 0.300-4.20 0 [facility] TSH Qn 3.470 uIU/mL 0.300-4.20 0 [facility] Thyroid Stim Hormone (TSH)on 06-25-2024 TSH 3.470 uIU/mL Normal 0.300-4.20 0 [facility] Comment on above: Performed By: #### L 500.4050, L100.0100, L501.9520, L500.4100 ####[facility] [id number] [place], [address] Total proteinOrdered By: Lucas Howard on 06-25-2024 Protein [Mass/Vol] 7.9 g/dL 5.9-8.4 [facility] Triglycerides measurementOrd ered By: Maritza Howard on 06-25-2024 Triglyceride [Mass/Vol] 78 mg/dL <199 [facility] Comment on above: The drugs N-Acetylcy steine and Metamizole may falsely depress this assay. Normal range: <150 mg/dLBorderline High: 150-199 mg/dLHigh: 200-499 mg/dLVery High: >500 mg/dL White blood cell (WBC) count Ordered By: Maritza Howard on 06-25-2024 WBC (Bld) [#/Vol] 6.6 10*3/uL 4.4-11.[address] [facility] [address] CARDIAC SCORING WO IV CON TRASTon 05-20-2023 CT CARDIAC SCORING WO IV CONTRAST Interpreted By: Andrea Michelle, STUDY: CT CARDIAC SCORING WO IV CONTRAST; 05/20/2023 9:20 am INDICATION: Signs/Symptoms:SCREENING. COMPARISON: None. ACCESSION NUMBER(S): [id number] ORDERING CLINICIAN: DIANA RANDALL TECHNIQUE: Using prospective ECG gating, limited CT scan of the chest for evaluation of coronary arteries was performed without intravenous contrast. Coronary calcium scoring was performed according to the method of Agatston. FINDINGS: The score and distribution of calcium in the coronary arteries is as follows: LM: 287.2. LAD: 842.8. LCx: 598.5. RCA: 461. Total: 2189.2. The visualized segments of the lungs are normally expanded. The visualized mid/lower ascending thoracic aorta measures 3.7 cm in diameter. Moderate to marked vascular calcifications. The heart is normal in size. No significant pericardial effusion is present. No gross evidence of mediastinal or hilar lymphadenopathy is identified. Small hiatal hernia. There is some fluid in the mid to distal esophagus may be sequela of reflux. IMPRESSION: 1. Coronary artery calcium score of 2189.2*. 2. Additional findings as above. *Coronary artery calcium scoring may be helpful in predicting the risk for future coronary heart disease events. According to the [place] [employer] Clinical Expert Consensus Task Force, such testing provides important prognostic information in patients with more than one coronary heart disease risk factor. The coronary artery calcium score correlates with the annual risk of a non-fatal myocardial infarction or coronary heart disease . Coronary artery score Annual Risk 0-99 0.4% 100-399 1.3% >400 2.4% These three "breakpoints" correspond to lower, intermediate and high risk states for future coronary events. Such information should be used, along with appropriate clinical judgment, to make decisions regarding the intensity of risk factor management strategies to treat blood lipids and to modify other non-lipid coronary risk factors. Reference: [place] P et al. Circulation. 2007; 115:402-426 MACRO: None Signed by: Andrea Michelle 05/20/2023 9:58 AM Dictation workstation: [id number] [facility] CT for calcium scoring WO co ntrast and CTA W contrast IV Heart and coronary arterieson 05-20-2023 1. Coronary artery calcium score of 2189.2*. 2. Additional findings as above. *Coronary artery calcium scoring may be helpful in predicting the risk for future coronary heart disease events. According to the [place] [employer] Clinical Expert Consensus Task Force, such testing provides important prognostic information in patients with more than one coronary heart disease risk factor. The coronary artery calcium score correlates with the annual risk of a non-fatal myocardial infarction or coronary heart disease . Coronary artery score Annual Risk 0-99 0.4% 100-399 1.3% >400 2.4% These three "breakpoints" correspond to lower, intermediate and high risk states for future coronary events. Such information should be used, along with appropriate clinical judgment, to make decisions regarding the intensity of risk factor management strategies to treat blood lipids and to modify other non-lipid coronary risk factors. Reference: [place] P et al. Circulation. 2007; 115:402-426 MACRO: None Signed by: Andrea Michelle 05/20/2023 9:58 AM Dictation workstation: [id number] [facility] Interpreted By: Andrea Shannon, STUDY: CT CARDIAC SCORING WO IV CONTRAST; 05/20/2023 9:20 am INDICATION: Signs/Symptoms:SCREENING. COMPARISON: None. ACCESSION NUMBER(S): [id number] ORDERING CLINICIAN: DIANA RANDALL TECHNIQUE: Using prospective ECG gating, limited CT scan of the chest for evaluation of coronary arteries was performed without intravenous contrast. Coronary calcium scoring was performed according to the method of Agatston. FINDINGS: The score and distribution of calcium in the coronary arteries is as follows: LM: 287.2. LAD: 842.8. LCx: 598.5. RCA: 461. Total: 2189.2. The visualized segments of the lungs are normally expanded. The visualized mid/lower ascending thoracic aorta measures 3.7 cm in diameter. Moderate to marked vascular calcifications. The heart is normal in size. No significant pericardial effusion is present. No gross evidence of mediastinal or hilar lymphadenopathy is identified. Small hiatal hernia. There is some fluid in the mid to distal esophagus may be sequela of reflux. [facility] Andrea Michelle, DO - 05/20/2023 Interpreted By: Andrea Michelle, STUDY: CT CARDIAC SCORING WO IV CONTRAST; 05/20/2023 9:20 am INDICATION: Signs/Symptoms:SCREENING. COMPARISON: None. ACCESSION NUMBER(S): [id number] ORDERING CLINICIAN: DIANA RANDALL TECHNIQUE: Using prospective ECG gating, limited CT scan of the chest for evaluation of coronary arteries was performed without intravenous contrast. Coronary calcium scoring was performed according to the method of Agatston. FINDINGS: The score and distribution of calcium in the coronary arteries is as follows: LM: 287.2. LAD: 842.8. LCx: 598.5. RCA: 461. Total: 2189.2. The visualized segments of the lungs are normally expanded. The visualized mid/lower ascending thoracic aorta measures 3.7 cm in diameter. Moderate to marked vascular calcifications. The heart is normal in size. No significant pericardial effusion is present. No gross evidence of mediastinal or hilar lymphadenopathy is identified. Small hiatal hernia. There is some fluid in the mid to distal esophagus may be sequela of reflux. IMPRESSION: 1. Coronary artery calcium score of 2189.2*. 2. Additional findings as above. *Coronary artery calcium scoring may be helpful in predicting the risk for future coronary heart disease events. According to the [place] [employer] Clinical Expert Consensus Task Force, such testing provides important prognostic information in patients with more than one coronary heart disease risk factor. The coronary artery calcium score correlates with the annual risk of a non-fatal myocardial infarction or coronary heart disease . Coronary artery score Annual Risk 0-99 0.4% 100-399 1.3% >400 2.4% These three "breakpoints" correspond to lower, intermediate and high risk states for future coronary events. Such information should be used, along with appropriate clinical judgment, to make decisions regarding the intensity of risk factor management strategies to treat blood lipids and to modify other non-lipid coronary risk factors. Reference: [place] P et al. Circulation. 2007; 115:402-426 MACRO: None Signed by: Andrea Michelle 05/20/2023 9:58 AM Dictation workstation: [id number] [facility] Work Phone: Radiology Study observation (narrative) [facility] Work Phone: CT for calcium scoring WO co ntrast and CTA W contrast IV Heart and coronary arteriesOrdered By: Andrea Michelle on 05-20-2023 [facility] Work Phone: CBC W/AUTO DIFF WBC ([id number])O rdered By: Tax Collection Coordinator on 09-26-2022 Basophils (Bld) [#/Vol] 0.1 10*3/uL Normal 0.0-0.2 [facility] Work Phone: Comment on above: PATIENT WAS FASTINGP ERFORMED BY: ISHMAEL LumiFold6370 [facility] [id number] Basophils/100 WBC (Bld) 1 % Normal [facility]; [facility] Work Phone: Comment on above: PATIENT WAS FASTINGP ERFORMED BY: ISHMAEL LumiFold6370 [facility] [id number] Eosinophils (Bld) [#/Vol] 0.0 10*3/uL Normal 0.0-0.4 [facility]; [facility] Work Phone: Comment on above: PATIENT WAS FASTINGP ERFORMED BY: ISHMAEL [facility] Krjwzz[address]Formerly [facility]in [place] [id number] Eosinophils/100 WBC (Bld) 1 % Normal [facility]; [facility] Work Phone: Comment on above: PATIENT WAS FASTINGP ERFORMED BY: [facility] Oxvqio[address] [facility] [place] [id number] Erythrocyte distribution width (RBC) [Ratio] 13.7 % Normal 11.6-15.4 [facility]; [facility] Work Phone: Comment on above: PATIENT WAS FASTINGP ERFORMED BY: [facility] RoadAlcester [place] [id number] Hematocrit (Bld) [Volume fraction] 49.0 % Normal 37.5-51.0 [facility]; [facility] Work Phone: Comment on above: PATIENT WAS FASTINGP ERFORMED BY: [facility] [id number] [facility] [id number] Hemoglobin (Bld) [Mass/Vol] 16.7 g/dL Normal 13.0-17.7 [facility]; [facility] Work Phone: Comment on above: PATIENT WAS FASTINGP ERFORMED BY: [facility] [id number] [facility] [place] [id number] Immature granulocytes (Bld) [#/Vol] 0.0 10*3/uL Normal 0.0-0.1 [facility]; [facility] Work Phone: Comment on above: PATIENT WAS FASTINGP ERFORMED BY: [facility]Formerly [facility]in [place] [id number] Immature granulocytes/100 WBC (Bld) 0 % Normal [facility]; [facility] Work Phone: Comment on above: PATIENT WAS FASTINGP ERFORMED BY: [facility] [id number] [facility] [place] [id number] Lymphocytes (Bld) [#/Vol] 1.5 10*3/uL Normal 0.7-3.1 [facility]; [facility] Work Phone: Comment on above: PATIENT WAS FASTINGP ERFORMED BY: [facility] Agkiki7[address]ui RoadDublin [place] [id number] Lymphocytes/100 WBC (Bld) 22 % Normal [facility]; [facility] Work Phone: Comment on above: PATIENT WAS FASTINGP ERFORMED BY: CB [facility] Wecoaj225[address] RoadDublin [place] [id number] MCH (RBC) [Entitic mass] 29.2 pg Normal 26.6-33.0 [facility]; [facility] Work Phone: Comment on above: PATIENT WAS FASTINGP ERFORMED BY: CB [facility] Kngerc3200 [address] RoadDublin [place] [id number] MCHC (RBC) [Mass/Vol] 34.1 g/dL Normal 31.5-35.7 [facility] prehensive Internal Medicine; [facility] Work Phone: Comment on above: PATIENT WAS FASTINGP ERFORMED BY: [facility] Hotzvq1224 [address] RoadDublin [place] [id number] MCV (RBC) [Entitic vol] 86 fL Normal 79-97 [facility]; [facility] Work Phone: Comment on above: PATIENT WAS FASTINGP ERFORMED BY: [facility] Ljswzc5105 [address] RoadDublin [place] [id number] Monocytes (Bld) [#/Vol] 0.6 10*3/uL Normal 0.1-0.9 [facility]; [facility] Work Phone: Comment on above: PATIENT WAS FASTINGP ERFORMED BY: CB [facility] Bnttpt3934 [address] RoadDublin [place] [id number] Monocytes/100 WBC (Bld) 8 % Normal [facility]; [facility] Work Phone: Comment on above: PATIENT WAS FASTINGP ERFORMED BY: CB [facility] Jinero7591 [address]Dublin [place] [id number] Neutrophils (Bld) [#/Vol] 4.7 10*3/uL Normal 1.4-7.0 [facility]; [facility] Work Phone: Comment on above: PATIENT WAS FASTINGP ERFORMED BY: ISHMAEL [facility] Vffrfv5120 [address] RoadDublin [place] [id number] Neutrophils/100 WBC (Bld) 68 % Normal [facility]; [facility] Work Phone: Comment on above: PATIENT WAS FASTINGP ERFORMED BY: CB [facility] Fakwaw9653 [address] RoadDublin [place] [id number] Platelets (Bld) [#/Vol] 283 10*3/uL Normal 150-450 [facility]; [facility] Work Phone: Comment on above: PATIENT WAS FASTINGP ERFORMED BY: CB [facility] Tqikez8394 [address] RoadDublin [place] [id number] RBC (Bld) [#/Vol] 5.71 10*6/uL Normal 4.14-5.80 [facility]; [facility] Work Phone: Comment on above: PATIENT WAS FASTINGP ERFORMED BY: [facility] Wbvugd0437 [address] RoadDublin [place] [id number] WBC (Bld) [#/Vol] 6.9 10*3/uL Normal 3.4-10.8 [facility]; [facility] Work Phone: Comment on above: PATIENT WAS FASTINGP ERFORMED BY: ISHMAEL [facility] Plemht2946 [address] RoadDublin [place] [id number] HGB A1C ([id number])Ordered By: S ystem Clinical Resource Nurse on 09-26-2022 HbA1c (Bld) [Mass fraction] 6.0 % Abnormal 4.8-5.6 [facility]; [facility] Work Phone: Comment on above: . Prediabetes: 5.7 - 6.4 Diabetes: >6.4 Glycemic control for adults with diabetes: <7.0 PATIENT WAS FASTINGP ERFORMED BY: CB [facility] Fjelbj9504 [address] RoadDublin [place] [id number] LIPID PANEL (49945)Ordered B y: Tax Collection Coordinator on 09-26-2022 Cholesterol [Mass/Vol] 242 mg/dL Abnormal 100-199 [facility]; [facility] Work Phone: Comment on above: PATIENT WAS FASTINGP ERFORMED BY: ISHMAEL Labjazmine Whalen[address] [facility] [id number] Cholesterol in HDL [Mass/Vol] 66 mg/dL Normal [facility]; [facility] Work Phone: Comment on above: PATIENT WAS FASTINGP ERFORMED BY: ISHMAEL [facility] Uruezj[address] [facility], [place] [id number] Triglyceride [Mass/Vol] 115 mg/dL Normal 0-149 [facility]; [facility] Work Phone: Comment on above: PATIENT WAS FASTINGP ERFORMED BY: ISHMAEL Labjazmine ArmstrongJfusbr[address] [facility] [id number] LIPID PANEL (14666) 20 mg/dL Normal 5-40 [facility]; [facility] Work Phone: Comment on above: PATIENT WAS FASTINGP ERFORMED BY: ISHMAEL Labjazmine ArmstrongDmtcpe[address] [facility] [id number] LIPID PANEL (43792) 156 mg/dL Abnormal 0-99 [facility]; [facility] Work Phone: Comment on above: PATIENT WAS FASTINGP ERFORMED BY: ISHMAEL Labjazmine ArmstrongOjqyfp[address] [facility], [place] [id number] LIPID PANEL (63230) 2.4 {ratio} Normal 0.0-3.6 [facility]; [facility] Work Phone: Comment on above: LDL/HDL Ratio Men Wo men 1/2 Avg.Risk 1.0 1.5 Avg.Risk 3.6 3.2 2X Avg.Risk 6.2 5.0 3X Avg.Risk 8.0 6.1 PATIENT WAS FASTINGP ERFORMED BY: ISHMAEL [facility] Nwvyfg[address] [facility]blin [place] [id number] METABOLIC PANEL, COMPREHENSI VE ([id number])Ordered By: Tax Collection Coordinator on 09-26-2022 Albumin [Mass/Vol] 4.7 g/dL Normal 3.9-4.9 Compre [facility] Internal Medicine; [facility] Work Phone: Comment on above: Please note refere nce interval change PATIENT WAS FASTINGP ERFORMED BY: CB [facility] Ccbwak7875 [address] RoadDublin [place] [id number] Albumin/Globulin [Mass ratio] 1.8 {ratio} Normal 1.2-2.2 [facility]; [facility] Work Phone: Comment on above: PATIENT WAS FASTINGP ERFORMED BY: CB [facility] Scozxm2993 [address] RoadDublin [place] [id number] ALP [Catalytic activity/Vol] 69 U/L Normal 44-121 [facility]; [facility] Work Phone: Comment on above: PATIENT WAS FASTINGP ERFORMED BY: CB [facility] Caayzp5103 [address] RoadDublin [place] [id number] ALT [Catalytic activity/Vol] 23 U/L Normal 0-44 [facility]; [facility] Work Phone: Comment on above: PATIENT WAS FASTINGP ERFORMED BY: CB [facility] Woshcp2866 [address] RoadDublin [place] [id number] AST [Catalytic activity/Vol] 20 U/L Normal 0-40 [facility] Internal Medicine; [facility] Work Phone: Comment on above: PATIENT WAS FASTINGP ERFORMED BY: CB [facility] Hbccux7682 [address] RoadDublin [place] [id number] Bilirubin [Mass/Vol] 0.3 mg/dL Normal 0.0-1.2 [facility] Internal Medicine; [facility] Internal Medicine Work Phone: Comment on above: PATIENT WAS FASTINGP ERFORMED BY: CB [facility] Hnvcbp7558 [address] RoadDublin [place] [id number] Calcium [Mass/Vol] 9.9 mg/dL Normal 8.6-10.2 [facility]; [facility] Work Phone: Comment on above: PATIENT WAS FASTINGP ERFORMED BY: CB [facility] Bqgqqi0120 [address] RoadDublin [place] [id number] Chloride [Moles/Vol] 99 mmol/L Normal 96-106 [facility] rehensive Internal Medicine; [facility] Work Phone: Comment on above: PATIENT WAS FASTINGP ERFORMED BY: ISHMAEL Whalen6370 [facility] [id number] CO2 [Moles/Vol] 24 mmol/L Normal 20-29 [facility]prov[facility]ale [facility]; [facility] Work Phone: Comment on above: PATIENT WAS FASTINGP ERFORMED BY: ISHMAEL Vincent Owzbca0495 [facility] [id number] Creatinine [Mass/Vol] 0.82 mg/dL Normal 0.76-1.27 [facility] pre[facility] Internal [facility]; [facility] Work Phone: Comment on above: PATIENT WAS FASTINGP ERFORMED BY: ISHMAEL Vincent Fehhgt0403 [facility] [id number] GFR/1.73 sq M.predicted among non-blacks MDRD (S/P/Bld) [Vol rate/Area] 97 mL/min/{1.73_m2} Normal Comprehensiv e Internal Medicine; [facility] Work Phone: Comment on above: PATIENT WAS FASTINGP ERFORMED BY: ISHMAEL Vincent Vkvtbq8599 [facility] [id number] Globulin (S) [Mass/Vol] 2.6 g/dL Normal 1.5-4.5 [facility]; [facility] Work Phone: Comment on above: PATIENT WAS FASTINGP ERFORMED BY: ISHMAEL Vincent Bnygte3583 [facility] [id number] Glucose [Mass/Vol] 109 mg/dL Abnormal 70-99 [facility]; [facility] Work Phone: Comment on above: PATIENT WAS FASTINGP ERFORMED BY: ISHMAEL Vincent Emsyjg4461 [facility] [id number] Potassium [Moles/Vol] 4.5 mmol/L Normal 3.5-5.2 Com prehensive Internal Medicine; [facility] Work Phone: Comment on above: PATIENT WAS FASTINGP ERFORMED BY: ISHMAEL Labcorolanda Cjjqzh6623 [address] RoadDublin [place] [id number] Protein [Mass/Vol] 7.3 g/dL Normal 6.0-8.5 [facility] Internal [facility]; [facility] Work Phone: Comment on above: PATIENT WAS FASTINGP ERFORMED BY: ISHMAEL Labcorolanda ArmstrongAwvuif8640 [address] RoadDublin [place] [id number] Sodium [Moles/Vol] 138 mmol/L Normal 134-144 [facility]; [facility] Work Phone: Comment on above: PATIENT WAS FASTINGP ERFORMED BY: ISHMAEL Labjazmine ArmstrongPpmntj1543 [address] RoadDublin [place] [id number] Urea nitrogen [Mass/Vol] 14 mg/dL Normal 8-27 [facility]; [facility] Work Phone: Comment on above: PATIENT WAS FASTINGP ERFORMED BY: ISHMAEL Labjazmine ArmstrongVukqmr9132 [address] RoadDublin [place] [id number] Urea nitrogen/Creatinine [Mass ratio] 17 mg/mg Normal 10-24 [facility]; [facility] Work Phone: Comment on above: PATIENT WAS FASTINGP ERFORMED BY: ISHMAEL Armstronglin6370 [address]Dublin [place] [id number] MICROALBUMINOrdered By: Syst em Clinical Resource Nurse on 09-26-2022 Albumin DL <= 20 mg/L (U) [Mass/Vol] mg/dL Normal [facility]; [facility] Work Phone: Comment on above: Verified by repeat analysis PATIENT WAS FASTINGP ERFORMED BY: ISHMAEL Labcorolanda Clmoyd8959 [address] RoadDublin [place] [id number] Albumin/Creatinine (U) [Mass ratio] <17 Normal 0-29 [facility]; [facility] Work Phone: Comment on above: Normal: 0 - 29 Moder ately increased: 30 - 300 Severely increased: >300 PATIENT WAS FASTINGP ERFORMED BY: ISHMAEL Labjazmine Uitgug4252 [address] RoadDublin [place] [id number] Creatinine (U) [Mass/Vol] 18.1 mg/dL Normal [facility]; [facility] Work Phone: Comment on above: PATIENT WAS FASTINGP ERFORMED BY: [employer] Rx Networksblin [place] [id number] PSA (PROSTATE SPECIFIC ANTIG EN) (V76.44)Ordered By: Tax Collection Coordinator on 09-26-2022 Prostate specific Ag [Mass/Vol] 2.1 ng/mL Normal 0.0-4.0 [facility]; [facility] Work Phone: Comment on above: [employer] ECLIA methodol ogy. .According to the [place] [employer], Serum PSA shoulddecrease and remain at undetectable levels after radicalprostatectomy. The AUA defines biochemical recurrence as an initialPSA value 0.2 ng/mL or greater followed by a subsequent confirmatoryPSA value 0.2 ng/mL or greater.Values obtained with different assay methods or kits cannot be usedinterchangeably. Results cannot be interpreted as absolute evidenceof the presence or absence of malignant disease. PATIENT WAS FASTINGP ERFORMED BY: [employer]6370 [facility] Kinematicsin [place] [id number] TSH ([id number])Ordered By: Coveritytracey [employer] Clinical Resource Nurse on 09-26-2022 TSH Qn 2.350 {uIU/mL} Normal 0.450-4.50 0 [facility]; [facility] Work Phone: Comment on above: PATIENT WAS FASTINGP ERFORMED BY: [employer]6370 [facility]in [place] [id number] URINALYSIS, W/ MICRO ([id number]) Ordered By: Tax Collection Coordinator on 09-26-2022 Appearance (U) Clear Normal Comprehens nuris Internal Medicine; [facility] Work Phone: Comment on above: PATIENT WAS FASTINGP ERFORMED BY: Kiip Jivcnx[address] TruMar[employer] Data Partnersblin [place] [id number] Bilirubin Ql (U) Negative Normal Comprehe nsive Internal Medicine; [facility] Work Phone: Comment on above: PATIENT WAS FASTINGP ERFORMED BY: [employer] Internationallin6370 [facility] [id number] Color (U) Yellow Normal [facility]; [facility] Work Phone: Comment on above: PATIENT WAS FASTINGP ERFORMED BY: ISHMAEL Armstronglin6370 [facility] [id number] Glucose Ql (U) Negative Normal Comprehens nuris Internal Medicine; [facility] Work Phone: Comment on above: PATIENT WAS FASTINGP ERFORMED BY: ISHMAEL Carlton Tgyafq5175 [facility] [id number] Hemoglobin Ql (U) Negative Normal Compreh ensive Internal Medicine; [facility] Work Phone: Comment on above: PATIENT WAS FASTINGP ERFORMED BY: ISHMAEL Carlton Ikrauy5133 [facility] [id number] Ketones Ql (U) Negative Normal Comprehens nuris Internal Medicine; [facility] Work Phone: Comment on above: PATIENT WAS FASTINGP ERFORMED BY: ISHMAEL Carlton Dtsgiq4577 [facility] [id number] Leukocyte esterase Test strip Ql (U) Negative Normal [facility]; [facility] Work Phone: Comment on above: PATIENT WAS FASTINGP ERFORMED BY: ISHMAEL Vincent Ysadfm1278 [facility] [id number] Microscopic observation LM Nom (Urine sed) MICRON Normal [facility]; [facility] Work Phone: Comment on above: Microscopic follows if indicated. PATIENT WAS FASTINGP ERFORMED BY: ISHMAEL CarrascoJulie V[place] [id number] [facility] [id number] Microscopic observation LM Nom (Urine sed) See below: Normal [facility]; [facility] Work Phone: Comment on above: Microscopic was dawna cated and was performed. PATIENT WAS FASTINGP ERFORMED BY: [place] [id number] [facility] [id number] Nitrite Ql (U) Negative Normal Comprehens nuris Internal Medicine; [facility] Work Phone: Comment on above: PATIENT WAS FASTINGP ERFORMED BY: ISHMAEL [facility] Okpnqj9418 [address] RoadDublin [place] [id number] pH (U) 6.5 [pH] Normal 5.0-7.5 [facility]; [facility] Work Phone: Comment on above: PATIENT WAS FASTINGP ERFORMED BY: ISHMAEL [facility] Ductbg7810 [address] RoadDublin [place] [id number] Protein Ql (U) Negative Normal Comprehens nuris Internal Medicine; [facility] Work Phone: Comment on above: PATIENT WAS FASTINGP ERFORMED BY: ISHMAEL [facility] Xkdaai0181 [address] RoadDublin [place] [id number] Specific gravity (U) [Rel density] 1.008 1 Normal 1.005-1.03 0 [facility]; [facility] Work Phone: Comment on above: PATIENT WAS FASTINGP ERFORMED BY: ISHMAEL [facility] Yljopo0307 [address] RoadDublin [place] [id number] Urobilinogen (U) [Mass/Vol] 0.2 mg/dL Normal 0.2-1.0 [facility]; [facility] Work Phone: Comment on above: PATIENT WAS FASTINGP ERFORMED BY: ISHMAEL [facility] Mcuefz6360 [address] RoadDublin [place] [id number] VITAMIN B-12 (CYANOCOBALAMIN ) (00254)Ordered By: Tax Collection Coordinator on 09-26-2022 Cobalamin (Vitamin B12) [Mass/Vol] 394 pg/mL Normal 232-1245 [facility]; [facility] Work Phone: Comment on above: PATIENT WAS FASTINGP ERFORMED BY: [facility] Arqtxr4757 [address] RoadDublin [place] [id number] Basophil percentageOrdered B y: Dr. Vogel on 06-06-2022 Creatinine [Mass/Vol] 1.2 mg/dL 0.70-1.30 [facility] No Panel InformationOrdered By: Dr. Vogel on 06-06-2022 Bedside Estimated GFR (eGFR) > 60.0000 mL/min >60 [facility] D-Dimer Quantitative (PE/DVT) 0.73 FEU/ug/m 0.27-0.49 [facility] Comment on above: D-Dimer ELEVATED (>0 .49): Additional studies and clinicalassessments are indicated to conclude diagnosis of:Deep Vein Thrombosis (DVT) or Pulmonary Embolism (PE)CRITICAL VALUE VERIFIED. CALLED TO MARK ANTHONY COLLAZO ([facility])06/06/22 1436 Paramjit Wiggins.RESULTS READ BACK BY SAME. Troponin I High Sensitivity 4 pg/mL 3.0-78.0 [facility] Comment on above: Please Note: New Michelle t Units and Gender Specific Reference Ranges. For more information see Policy Stat Procedure [facility] High Sensitivity Troponin (TNIH) and attachments. CBC W/AUTO DIFF WBC (91603)O rdered By: Tax Collection Coordinator on 03-29-2022 Basophils (Bld) [#/Vol] 0.1 10*3/uL Normal 0.0-0.2 [facility]; [facility] Work Phone: Comment on above: PATIENT WAS FASTINGP ERFORMED BY: [facility]Nov[facility] [id number] Basophils/100 WBC (Bld) 1 % Normal [facility]; [facility] Work Phone: Comment on above: PATIENT WAS FASTINGP ERFORMED BY: [employer]70 [facility] KinematicsNov[facility] [id number] Eosinophils (Bld) [#/Vol] 0.1 10*3/uL Normal 0.0-0.4 [facility]; [facility] Work Phone: Comment on above: PATIENT WAS FASTINGP ERFORMED BY: [employer]6370 [facility] KinematicsNov[facility] [id number] Eosinophils/100 WBC (Bld) 2 % Normal [facility]; [facility] Work Phone: Comment on above: PATIENT WAS FASTINGP ERFORMED BY: [employer]70 [facility] KinematicsNov[facility] [id number] Erythrocyte distribution width (RBC) [Ratio] 13.0 % Normal 11.6-15.4 [facility]; [facility] Work Phone: Comment on above: PATIENT WAS FASTINGP ERFORMED BY: [facility] Vnuqbm4106 [address] RoadDublin [place] [id number] Hematocrit (Bld) [Volume fraction] 44.8 % Normal 37.5-51.0 [facility]; [facility] Work Phone: Comment on above: PATIENT WAS FASTINGP ERFORMED BY: CB [facility] Dtdihv7962 [address] RoadDublin [place] [id number] Hemoglobin (Bld) [Mass/Vol] 15.7 g/dL Normal 13.0-17.7 [facility]; [facility] Work Phone: Comment on above: PATIENT WAS FASTINGP ERFORMED BY: [facility] Vllswx9271 [address] RoadDublin [place] [id number] Immature granulocytes (Bld) [#/Vol] 0.0 10*3/uL Normal 0.0-0.1 [facility]; [facility] Work Phone: Comment on above: PATIENT WAS FASTINGP ERFORMED BY: [facility] Upogfg1710 [address] RoadDublin [place] [id number] Immature granulocytes/100 WBC (Bld) 0 % Normal [facility]; [facility] Work Phone: Comment on above: PATIENT WAS FASTINGP ERFORMED BY: [facility] Flohvl9650 [address] [facility] HospitalD[facility] [place] [id number] Lymphocytes (Bld) [#/Vol] 3.1 10*3/uL Normal 0.7-3.1 [facility]; [facility] Work Phone: Comment on above: PATIENT WAS FASTINGP ERFORMED BY: CB [facility] Zomebi2614 [address] RoadDublin [place] [id number] Lymphocytes/100 WBC (Bld) 38 % Normal [facility]; [facility] Work Phone: Comment on above: PATIENT WAS FASTINGP ERFORMED BY: CB [facility] Ranjnq7321 [address] RoadDublin [place] [id number] MCH (RBC) [Entitic mass] 29.8 pg Normal 26.6-33.0 [facility]; [facility] Work Phone: Comment on above: PATIENT WAS FASTINGP ERFORMED BY: ISHMAEL [facility] Duxptn7231 [address] RoadDublin [place] [id number] MCHC (RBC) [Mass/Vol] 35.0 g/dL Normal 31.5-35.7 [facility] pre[facility]; [facility] Work Phone: Comment on above: PATIENT WAS FASTINGP ERFORMED BY: CB [facility] Wsnrug0114 [address] RoadDublin [place] [id number] MCV (RBC) [Entitic vol] 85 fL Normal 79-97 [facility]; [facility] Work Phone: Comment on above: PATIENT WAS FASTINGP ERFORMED BY: CB Labcorolanda Vhrxox0610 [address] RoadDublin [place] [id number] Monocytes (Bld) [#/Vol] 0.7 10*3/uL Normal 0.1-0.9 [facility]; [facility] Work Phone: Comment on above: PATIENT WAS FASTINGP ERFORMED BY: CB [facility] Tczelj3865 [address] RoadDublin [place] [id number] Monocytes/100 WBC (Bld) 8 % Normal [facility]; [facility] Work Phone: Comment on above: PATIENT WAS FASTINGP ERFORMED BY: CB [facility] Mttlsh[address]27 [address] [facility] HospitalD[facility] [place] [id number] Neutrophils (Bld) [#/Vol] 4.1 10*3/uL Normal 1.4-7.0 [facility]; [facility] Work Phone: Comment on above: PATIENT WAS FASTINGP ERFORMED BY: CB [facility] Cbglyo5578 [address] RoadDublin [place] [id number] Neutrophils/100 WBC (Bld) 51 % Normal [facility]; [facility] Work Phone: Comment on above: PATIENT WAS FASTINGP ERFORMED BY: CB [facility] Zopezh9991 [address] RoadDublin [place] [id number] Platelets (Bld) [#/Vol] 318 10*3/uL Normal 150-450 [facility]; [facility] Work Phone: Comment on above: PATIENT WAS FASTINGP ERFORMED BY: ISHMAEL Whalen[address] [facility]in [place] [id number] RBC (Bld) [#/Vol] 5.26 10*6/uL Normal 4.14-5.80 Compr [facility] Internal Medicine; [facility] Work Phone: Comment on above: PATIENT WAS FASTINGP ERFORMED BY: ISHMAEL Labtyrese Xzrxaa[address] [facility] [id number] WBC (Bld) [#/Vol] 8.2 10*3/uL Normal 3.4-10.8 [facility] Internal Medicine; [facility] Work Phone: Comment on above: PATIENT WAS FASTINGP ERFORMED BY: ISHMAEL Carltonrolanda Wjbkwi5101 [facility] [id number] HGB A1C (07030)Ordered By: S ystem Clinical Resource Nurse on 03-29-2022 HbA1c (Bld) [Mass fraction] 5.9 % Abnormal 4.8-5.6 [facility]; [facility] Work Phone: Comment on above: . Prediabetes: 5.7 - 6.4 Diabetes: >6.4 Glycemic control for adults with diabetes: <7.0 PATIENT WAS FASTINGP ERFORMED BY: ISHMAEL Labtyrese Vovaut4090 [facility] [id number] LIPID PANEL (60471)Ordered B y: Tax Collection Coordinator on 03-29-2022 Cholesterol [Mass/Vol] 250 mg/dL Abnormal 100-199 [facility]; [facility] Work Phone: Comment on above: PATIENT WAS FASTINGP ERFORMED BY: ISHMAEL Labtyrese Hblfjt8612 [facility] [id number] Cholesterol in HDL [Mass/Vol] 64 mg/dL Normal [facility]; [facility] Work Phone: Comment on above: PATIENT WAS FASTINGP ERFORMED BY: ISHMAEL Labtyrese Buspep5419 [facility] [id number] Triglyceride [Mass/Vol] 97 mg/dL Normal 0-149 [facility]; [facility] Work Phone: Comment on above: PATIENT WAS FASTINGP ERFORMED BY: ISHMAEL Labcorolanda Xpdpgi0071 [address] Roadblin [place] [id number] LIPID PANEL (11117) 17 mg/dL Normal 5-40 [facility] Internal Medicine; [facility] Work Phone: Comment on above: PATIENT WAS FASTINGP ERFORMED BY: ISHMAEL [facility] Yxpssp[address]1 [address] [facility] [id number] LIPID PANEL (22395) 169 mg/dL Abnormal 0-99 [facility] Internal Medicine; [facility] Work Phone: Comment on above: PATIENT WAS FASTINGP ERFORMED BY: ISHMAEL Labcoroalnda Ppsfyd[address]13 [address] [facility] [id number] LIPID PANEL (56313) 2.6 {ratio} Normal 0.0-3.6 [facility] Internal Medicine; [facility] Work Phone: Comment on above: LDL/HDL Ratio Men Wo men 1/2 Avg.Risk 1.0 1.5 Avg.Risk 3.6 3.2 2X Avg.Risk 6.2 5.0 3X Avg.Risk 8.0 6.1 PATIENT WAS FASTINGP ERFORMED BY: ISHMAEL Labcorolanda Ielxrz5048 [address] [facility] [id number] METABOLIC PANEL, COMPREHENSI VE (90467)Ordered By: Tax Collection Coordinator on 03-29-2022 Albumin [Mass/Vol] 4.3 g/dL Normal 3.8-4.8 [facility] Medicine; [facility] Work Phone: Comment on above: PATIENT WAS FASTINGP ERFORMED BY: ISHMAEL [facility] Xyhhci[address] [facility] [place] [id number] Albumin/Globulin [Mass ratio] 1.7 {ratio} Normal 1.2-2.2 [facility]; [facility] Work Phone: Comment on above: PATIENT WAS FASTINGP ERFORMED BY: ISHMAEL [facility] Dzursn0779 [address] RoadDublin [place] [id number] ALP [Catalytic activity/Vol] 61 U/L Normal 44-121 [facility]; [facility] Work Phone: Comment on above: PATIENT WAS FASTINGP ERFORMED BY: ISHMAEL Labcorolanda Rzhpvi9024 [address] RoadDublin [place] [id number] ALT [Catalytic activity/Vol] 26 U/L Normal 0-44 [facility]; [facility] Work Phone: Comment on above: PATIENT WAS FASTINGP ERFORMED BY: [facility] Epguxn8994 [address] RoadDublin [place] [id number] AST [Catalytic activity/Vol] 21 U/L Normal 0-40 [facility]; [facility] Work Phone: Comment on above: PATIENT WAS FASTINGP ERFORMED BY: [facility] Fihfoi9156 [address] RoadDublin [place] [id number] Bilirubin [Mass/Vol] 0.3 mg/dL Normal 0.0-1.2 [facility]; [facility] Work Phone: Comment on above: PATIENT WAS FASTINGP ERFORMED BY: [facility] Kfkmfu8781 [address] RoadDublin [place] [id number] Calcium [Mass/Vol] 9.8 mg/dL Normal 8.6-10.2 [facility] Internal Medicine; [facility] Work Phone: Comment on above: PATIENT WAS FASTINGP ERFORMED BY: [facility] Sifrrs9770 [address] RoadDublin [place] [id number] Chloride [Moles/Vol] 101 mmol/L Normal 96-106 [facility]; [facility] Work Phone: Comment on above: PATIENT WAS FASTINGP ERFORMED BY: [facility] Phmbxn6491 [address] RoadDublin [place] [id number] CO2 [Moles/Vol] 23 mmol/L Normal 20-29 [facility] Internal Medicine; [facility] Work Phone: Comment on above: PATIENT WAS FASTINGP ERFORMED BY: [facility] Lfjapx9497 [address] RoadDublin [place] [id number] Creatinine [Mass/Vol] 0.93 mg/dL Normal 0.76-1.27 [facility] prehens[facility] Internal Medicine; [facility] Work Phone: Comment on above: PATIENT WAS FASTINGP ERFORMED BY: ISHMAEL Vincent Myiata0225 [facility] [id number] GFR/1.73 sq M.predicted among non-blacks MDRD (S/P/Bld) [Vol rate/Area] 91 mL/min/{1.73_m2} Normal Comprehensiv e Internal Medicine; [facility] Work Phone: Comment on above: PATIENT WAS FASTINGP ERFORMED BY: LabAsc[facility]6370 [facility] [id number] Globulin (S) [Mass/Vol] 2.5 g/dL Normal 1.5-4.5 [facility]; [facility] Work Phone: Comment on above: PATIENT WAS FASTINGP ERFORMED BY: Lab[facility]6370 [facility] [id number] Glucose [Mass/Vol] 90 mg/dL Normal 70-99 [facility]; [facility] Work Phone: Comment on above: PATIENT WAS FASTINGP ERFORMED BY: [facility] Gcrwke1169 [facility] [id number] Potassium [Moles/Vol] 4.4 mmol/L Normal 3.5-5.2 [facility]; [facility] Work Phone: Comment on above: PATIENT WAS FASTINGP ERFORMED BY: Lab[facility]6370 [facility] [id number] Protein [Mass/Vol] 6.8 g/dL Normal 6.0-8.5 [facility]; [facility] Work Phone: Comment on above: PATIENT WAS FASTINGP ERFORMED BY: [facility] Mspsdf5545 [facility] [id number] Sodium [Moles/Vol] 138 mmol/L Normal 134-144 [facility]; [facility] Work Phone: Comment on above: PATIENT WAS FASTINGP ERFORMED BY: ISHMAEL Labcorolanda Pjvgwh0488 [address] RoadDublin [place] [id number] Urea nitrogen [Mass/Vol] 11 mg/dL Normal 8-27 [facility]; [facility] Work Phone: Comment on above: PATIENT WAS FASTINGP ERFORMED BY: ISHMAEL Labcorolanda ArmstrongByndgm0872 [address] RoadDublin [place] [id number] Urea nitrogen/Creatinine [Mass ratio] 12 mg/mg Normal 10-24 [facility]; [facility] Work Phone: Comment on above: PATIENT WAS FASTINGP ERFORMED BY: ISHMAEL Labjazmine ArmstrongVrzcsn4840 [address] RoadDublin [place] [id number] MICROALBUMINOrdered By: Syst em Clinical Resource Nurse on 03-29-2022 Albumin DL <= 20 mg/L (U) [Mass/Vol] 3.5 ug/mL Normal [facility]; [facility] Work Phone: Comment on above: PATIENT WAS FASTINGP ERFORMED BY: ISHMAEL Labjazmine ArmstrongVkgjeg2359 [address] RoadDublin [place] [id number] Albumin/Creatinine (U) [Mass ratio] 4 {mg/g_creat} Normal 0-29 [facility]; [facility] Work Phone: Comment on above: Normal: 0 - 29 Moder ately increased: 30 - 300 Severely increased: >300 PATIENT WAS FASTINGP ERFORMED BY: ISHMAEL Labtyreserolanda Rclquj[address] [facility]in [place] [id number] Creatinine (U) [Mass/Vol] 92.3 mg/dL Normal [facility]; [facility] Work Phone: Comment on above: PATIENT WAS FASTINGP ERFORMED BY: ISHMAEL [facility] Orodca9441 [address] RoadDublin [place] [id number] PSA (PROSTATE SPECIFIC ANTIG EN) (V76.44)Ordered By: Tax Collection Coordinator on 03-29-2022 Prostate specific Ag [Mass/Vol] 2.8 ng/mL Normal 0.0-4.0 [facility]; [facility] Work Phone: Comment on above: Scot ECLIA methodol ogy. .According to the [place] [employer], Serum PSA shoulddecrease and remain at undetectable levels after radicalprostatectomy. The AUA defines biochemical recurrence as an initialPSA value 0.2 ng/mL or greater followed by a subsequent confirmatoryPSA value 0.2 ng/mL or greater.Values obtained with different assay methods or kits cannot be usedinterchangeably. Results cannot be interpreted as absolute evidenceof the presence or absence of malignant disease. PATIENT WAS FASTINGP ERFORMED BY: CB [facility] Gzpbfn6611 [address] RoadDublin [place] [id number] TSH ([id number])Ordered By: Piki m Clinical Resource Nurse on 03-29-2022 TSH Qn 2.400 {uIU/mL} Normal 0.450-4.50 0 [facility]; [facility] Work Phone: Comment on above: PATIENT WAS FASTINGP ERFORMED BY: CB [facility] Wpagbk2992 [address] RoadDublin [place] [id number] URINALYSIS, W/ MICRO ([id number]) Ordered By: Tax Collection Coordinator on 03-29-2022 Appearance (U) Clear Normal Comprehens nuris Internal Medicine; [facility] Work Phone: Comment on above: PATIENT WAS FASTINGP ERFORMED BY: CB [facility] Wbprth7855 [address] RoadDublin [place] [id number] Bilirubin Ql (U) Negative Normal Comprehe nsive Internal Medicine; [facility] Work Phone: Comment on above: PATIENT WAS FASTINGP ERFORMED BY: CB [facility] Tioctl8789 [address] RoadDublin [place] [id number] Color (U) Yellow Normal [facility]; [facility] Work Phone: Comment on above: PATIENT WAS FASTINGP ERFORMED BY: CB [facility] Wcytuv9206 [address] RoadDublin [place] [id number] Glucose Ql (U) Negative Normal Comprehens nuris Internal Medicine; [facility] Work Phone: Comment on above: PATIENT WAS FASTINGP ERFORMED BY: CB [facility] Drwflr9981 [address] RoadDublin [place] [id number] Hemoglobin Ql (U) Negative Normal Compreh ensive Internal Medicine; [facility] Work Phone: Comment on above: PATIENT WAS FASTINGP ERFORMED BY: ISHMAEL Curt Whalen[address] [facility]bl[facility] [place] [id number] Ketones Ql (U) Trace Abnormal Comprehens nuris Internal Medicine; [facility] Work Phone: Comment on above: PATIENT WAS FASTINGP ERFORMED BY: ISHMAEL [facility] Gsqbfm[address] [facility] [id number] Leukocyte esterase Test strip Ql (U) Trace Abnormal [facility]; [facility] Work Phone: Comment on above: PATIENT WAS FASTINGP ERFORMED BY: ISHMAEL Danilojazmine Lbiijm[address] [facility] [id number] Microscopic observation LM Nom (Urine sed) See below: Normal [facility]; [facility] Work Phone: Comment on above: Microscopic was dawna cated and was performed. PATIENT WAS FASTINGP ERFORMED BY: ISHMAEL [facility] Bwuhdp[address] [facility] [id number] Nitrite Ql (U) Negative Normal Comprehens nuris Internal Medicine; [facility] Work Phone: Comment on above: PATIENT WAS FASTINGP ERFORMED BY: ISHMAEL Carltonrolanda Bzmrul2522 [facility] [id number] pH (U) 7.0 [pH] Normal 5.0-7.5 [facility]; [facility] Work Phone: Comment on above: PATIENT WAS FASTINGP ERFORMED BY: ISHMAEL [facility] Ideumm[address] [facility] [id number] Protein Ql (U) Negative Normal Comprehens nuris Internal Medicine; [facility] Work Phone: Comment on above: PATIENT WAS FASTINGP ERFORMED BY: ISHMAEL [facility] Dnhidc7637 [facility] [id number] Specific gravity (U) [Rel density] 1.015 1 Normal 1.005-1.03 0 [facility]; [facility] Work Phone: Comment on above: PATIENT WAS FASTINGP ERFORMED BY: ISHMAEL LumiFold6[address] [place] [id number] Urobilinogen (U) [Mass/Vol] 0.2 mg/dL Normal 0.2-1.0 [facility]; [facility] Work Phone: Comment on above: PATIENT WAS FASTINGP ERFORMED BY: [employer] [place] [id number] VITAMIN B-12 (CYANOCOBALAMIN ) (83245)Ordered By: Tax Collection Coordinator on 03-29-2022 Cobalamin (Vitamin B12) [Mass/Vol] 415 pg/mL Normal 232-1245 [facility]; [facility] Work Phone: Comment on above: PATIENT WAS FASTINGP ERFORMED BY: ISHMAEL [employer] [place] [id number] INHOUSE COVID 19 (ONLY) RAPI D (31832)Ordered By: Pk Parikh on 03-08-2021 SARS-CoV-2 (COVID-19) RNA LUKAS+probe Ql (Unsp spec) Positive Normal [facility]; [facility] Work Phone: Blood Glucose , Office ([phone])Ordered By: Nella Jama on 09-23-2020 Glucose Glucometer (BldC) [Moles/Vol] 134 1 Normal [facility]; [facility] Work Phone: HgA1C , Office ([phone])Ordere d By: Nella Jama on 09-23-2020 HbA1c (Bld) [Mass fraction] 5.6 % Normal 4.6 - 7.1 [facility]; [facility] Work Phone: CBC W/AUTO DIFF WBC (45425)O rdered By: Tax Collection Coordinator on 06-24-2020 Basophils (Bld) [#/Vol] 0.1 {x10E3/uL} Normal 0.0-0.2 [facility]; [facility] Work Phone: Comment on above: PATIENT WAS FASTINGP ERFORMED BY: ISHMAEL [employer]70 [facility] [id number] Basophils (Bld) [#/Vol] 0.1 10*3/uL Normal 0.0-0.2 [facility]; [facility] Work Phone: Comment on above: PATIENT WAS FASTINGP ERFORMED BY: [facility]iloN[facility] Iupvzh7366 [facility] [id number] Basophils/100 WBC (Bld) 1 % Normal [facility]; [facility] Work Phone: Comment on above: PATIENT WAS FASTINGP ERFORMED BY: [place] 9020170 [facility] [id number] Eosinophils (Bld) [#/Vol] 0.0 {x10E3/uL} Normal 0.0-0.4 [facility]; [facility] Work Phone: Comment on above: PATIENT WAS FASTINGP ERFORMED BY: [place] 9020170 [facility] [id number] Eosinophils (Bld) [#/Vol] 0.0 10*3/uL Normal 0.0-0.4 [facility]; [facility] Work Phone: Comment on above: PATIENT WAS FASTINGP ERFORMED BY: [facility]6370 [facility] [id number] Eosinophils/100 WBC (Bld) 0 % Normal [facility]; [facility] Work Phone: Comment on above: PATIENT WAS FASTINGP ERFORMED BY: [place] 9020170 [facility] [id number] Erythrocyte distribution width (RBC) [Ratio] 13.1 % Normal 11.6-15.4 [facility]; [facility] Work Phone: Comment on above: PATIENT WAS FASTINGP ERFORMED BY: [place] [id number] [facility] [id number] Hematocrit (Bld) [Volume fraction] 50.0 % Normal 37.5-51.0 [facility]; [facility] Work Phone: Comment on above: PATIENT WAS FASTINGP ERFORMED BY: [facility] Gwrlxu2787 [address] RoadDublin [place] [id number] Hemoglobin (Bld) [Mass/Vol] 17.4 g/dL Normal 13.0-17.7 [facility]; [facility] Work Phone: Comment on above: PATIENT WAS FASTINGP ERFORMED BY: [facility] Clgdgd0704 [address] RoadDublin [place] [id number] Immature granulocytes (Bld) [#/Vol] 0.1 {x10E3/uL} Normal 0.0-0.1 [facility]; [facility] Work Phone: Comment on above: PATIENT WAS FASTINGP ERFORMED BY: [facility] Ioymtx4344 [address] Roadblin [place] [id number] Immature granulocytes (Bld) [#/Vol] 0.1 10*3/uL Normal 0.0-0.1 [facility]; [facility] Work Phone: Comment on above: PATIENT WAS FASTINGP ERFORMED BY: [facility] Uhsfwl9536 [address] Roadblin [place] [id number] Immature granulocytes/100 WBC (Bld) 1 % Normal [facility]; [facility] Work Phone: Comment on above: PATIENT WAS FASTINGP ERFORMED BY: [facility] Mykbva1266 [address] Roadblin [place] [id number] Lymphocytes (Bld) [#/Vol] 1.4 {x10E3/uL} Normal 0.7-3.1 [facility]; [facility] Work Phone: Comment on above: PATIENT WAS FASTINGP ERFORMED BY: [facility] Tfoblp5601 [address] RoadDublin [place] [id number] Lymphocytes (Bld) [#/Vol] 1.4 10*3/uL Normal 0.7-3.1 [facility]; [facility] Work Phone: Comment on above: PATIENT WAS FASTINGP ERFORMED BY: [facility] Yyanqp6900 [address] RoadDublin [place] [id number] Lymphocytes/100 WBC (Bld) 19 % Normal [facility]; [facility] Work Phone: Comment on above: PATIENT WAS FASTINGP ERFORMED BY: ISHMAEL [facility] Mzogtl4545 [address] RoadDublin [place] [id number] MCH (RBC) [Entitic mass] 31.5 pg Normal 26.6-33.0 [facility]; [facility] Work Phone: Comment on above: PATIENT WAS FASTINGP ERFORMED BY: CB [facility] Evlfaa6858 [address] RoadDublin [place] [id number] MCHC (RBC) [Mass/Vol] 34.8 g/dL Normal 31.5-35.7 [facility]; [facility] Work Phone: Comment on above: PATIENT WAS FASTINGP ERFORMED BY: ISHMAEL [facility] Txapjd0257 [address] RoadDublin [place] [id number] MCV (RBC) [Entitic vol] 91 fL Normal 79-97 [facility]; [facility] Work Phone: Comment on above: PATIENT WAS FASTINGP ERFORMED BY: ISHMAEL [facility] Zhrtnv9034 [address] RoadDublin [place] [id number] Monocytes (Bld) [#/Vol] 0.6 {x10E3/uL} Normal 0.1-0.9 [facility]; [facility] Work Phone: Comment on above: PATIENT WAS FASTINGP ERFORMED BY: ISHMAEL [facility] Dqxkwy1005 [address] RoadDublin [place] [id number] Monocytes (Bld) [#/Vol] 0.6 10*3/uL Normal 0.1-0.9 [facility]; [facility] Work Phone: Comment on above: PATIENT WAS FASTINGP ERFORMED BY: CB [facility] Qbpziu4191 [address] RoadDublin [place] [id number] Monocytes/100 WBC (Bld) 8 % Normal [facility]; [facility] Work Phone: Comment on above: PATIENT WAS FASTINGP ERFORMED BY: CB [facility] Gsqnsd5488 [address] RoadDublin [place] [id number] Neutrophils (Bld) [#/Vol] 5.2 {x10E3/uL} Normal 1.4-7.0 [facility]; [facility] Work Phone: Comment on above: PATIENT WAS FASTINGP ERFORMED BY: ISHMAEL Whalen6370 [address] RoadDublin [place] [id number] Neutrophils (Bld) [#/Vol] 5.2 10*3/uL Normal 1.4-7.0 [facility]; [facility] Work Phone: Comment on above: PATIENT WAS FASTINGP ERFORMED BY: ISHMAEL LabCorolanda ArmstrongPsxect7418 [address] RoadDublin [place] [id number] Neutrophils/100 WBC (Bld) 71 % Normal [facility]; [facility] Work Phone: Comment on above: PATIENT WAS FASTINGP ERFORMED BY: ISHMAEL LabCorolanda WhalenFwvzxx5336 [address] RoadDublin [place] [id number] Platelets (Bld) [#/Vol] 287 {x10E3/uL} Normal 150-450 [facility]; [facility] Work Phone: Comment on above: PATIENT WAS FASTINGP ERFORMED BY: ISHMAEL LabCorolanda WhalenCamdtz0695 [address] RoadDublin [place] [id number] Platelets (Bld) [#/Vol] 287 10*3/uL Normal 150-450 [facility]; [facility] Work Phone: Comment on above: PATIENT WAS FASTINGP ERFORMED BY: [facility] Lkdukr5942 [address] RoadDublin [place] [id number] RBC (Bld) [#/Vol] 5.52 {x10E6/uL} Normal 4.14-5.80 [facility] Internal Medicine; [facility] Work Phone: Comment on above: PATIENT WAS FASTINGP ERFORMED BY: ISHMAEL [facility] Ibosff7020 [address] RoadDublin [place] [id number] RBC (Bld) [#/Vol] 5.52 10*6/uL Normal 4.14-5.80 [facility] Internal Medicine; [facility] Work Phone: Comment on above: PATIENT WAS FASTINGP ERFORMED BY: ISHMAEL [facility] Clazah[address] [facility]in [place] [id number] WBC (Bld) [#/Vol] 7.3 {x10E3/uL} Normal 3.4-10.8 [facility]; [facility] Work Phone: Comment on above: PATIENT WAS FASTINGP ERFORMED BY: CB [facility] Rpwgwk7569 [address] [facility]in [place] [id number] WBC (Bld) [#/Vol] 7.3 10*3/uL Normal 3.4-10.8 [facility] Internal Medicine; [facility] Work Phone: Comment on above: PATIENT WAS FASTINGP ERFORMED BY: ISHMAEL [facility] Durgoc4083 [facility] [place] [id number] LIPID PANEL (57611)Ordered B y: Tax Collection Coordinator on 06-24-2020 Cholesterol [Mass/Vol] 302 mg/dL Abnormal 100-199 [facility]; [facility] Work Phone: Comment on above: PATIENT WAS FASTINGP ERFORMED BY: ISHMAEL [facility] Qajnco[address]7 [address] [facility] [place] [id number] Cholesterol in HDL [Mass/Vol] 109 mg/dL Normal [facility]; [facility] Work Phone: Comment on above: PATIENT WAS FASTINGP ERFORMED BY: ISHMAEL [facility] Vlvvdl7956 [facility] [id number] Cholesterol in LDL/Cholesterol in HDL [Mass ratio] 1.6 {ratio} Normal 0.0-3.6 [facility]; [facility] Work Phone: Comment on above: LDL/HDL Ratio Men Wo men 1/2 Avg.Risk 1.0 1.5 Avg.Risk 3.6 3.2 2X Avg.Risk 6.2 5.0 3X Avg.Risk 8.0 6.1 PATIENT WAS FASTINGP ERFORMED BY: ISHMAEL [facility] Urkunu5965 [address] [facility]in [place] [id number] Triglyceride [Mass/Vol] 89 mg/dL Normal 0-149 [facility]; [facility] Work Phone: Comment on above: PATIENT WAS FASTINGP ERFORMED BY: ISHMAEL LabJazmine ArmstrongAnyjmo5[address] [facility]in [place] [id number] LIPID PANEL (84552) 179 mg/dL Abnormal 0-99 [facility] Internal Medicine; [facility] Work Phone: Comment on above: PATIENT WAS FASTINGP ERFORMED BY: ISHMAEL LabJazmine ArmstrongFzgvmu0348 [address] [facility] [id number] LIPID PANEL (17543) 14 mg/dL Normal 5-40 [facility] Internal Medicine; [facility] Work Phone: Comment on above: PATIENT WAS FASTINGP ERFORMED BY: ISHMAEL Armstronglin6370 [facility] [id number] LIPID PANEL (56195) 1.6 {ratio} Normal 0.0-3.6 [facility] Internal Medicine; [facility] Work Phone: Comment on above: LDL/HDL Ratio Men Wo men 1/2 Avg.Risk 1.0 1.5 Avg.Risk 3.6 3.2 2X Avg.Risk 6.2 5.0 3X Avg.Risk 8.0 6.1 PATIENT WAS FASTINGP ERFORMED BY: ISHMAEL Armstronglin6370 [facility] [id number] METABOLIC PANEL, COMPREHENSI VE (50478)Ordered By: Tax Collection Coordinator on 06-24-2020 Albumin [Mass/Vol] 4.9 g/dL Abnormal 3.8-4.8 [facility] Internal Medicine; [facility] Work Phone: Comment on above: PATIENT WAS FASTINGP ERFORMED BY: ISHMAEL LabCorolanda Bsukvc63[address] [facility] [place] [id number] Albumin/Globulin [Mass ratio] 1.6 {ratio} Normal 1.2-2.2 [facility] Internal Medicine; [facility] Work Phone: Comment on above: PATIENT WAS FASTINGP ERFORMED BY: ISHMAEL LabJazmine Xhkrwf0695 [address] [facility] [id number] ALP [Catalytic activity/Vol] 67 [iU]/L Normal 39-117 [facility]; [facility] Work Phone: Comment on above: PATIENT WAS FASTINGP ERFORMED BY: ISHMAEL [facility] Dmrnba3896 [address] RoadDublin [place] [id number] ALP [Catalytic activity/Vol] 67 U/L Normal 39-117 [facility]; [facility] Work Phone: Comment on above: PATIENT WAS FASTINGP ERFORMED BY: CB [facility] Zshlae3734 [address] RoadDublin [place] [id number] ALT [Catalytic activity/Vol] 44 [iU]/L Normal 0-44 [facility]; [facility] Work Phone: Comment on above: PATIENT WAS FASTINGP ERFORMED BY: CB [facility] Efchjq5486 [address] RoadDublin [place] [id number] ALT [Catalytic activity/Vol] 44 U/L Normal 0-44 [facility]; [facility] Work Phone: Comment on above: PATIENT WAS FASTINGP ERFORMED BY: CB [facility] Bzefhp0507 [address] RoadDublin [place] [id number] AST [Catalytic activity/Vol] 38 [iU]/L Normal 0-40 [facility]; [facility] Work Phone: Comment on above: PATIENT WAS FASTINGP ERFORMED BY: CB [facility] Kjccgx0584 [address] RoadDublin [place] [id number] AST [Catalytic activity/Vol] 38 U/L Normal 0-40 [facility]; [facility] Work Phone: Comment on above: PATIENT WAS FASTINGP ERFORMED BY: CB [facility] Cobrvh5978 [address] RoadDublin [place] [id number] Bilirubin [Mass/Vol] 0.4 mg/dL Normal 0.0-1.2 [facility]; [facility] Work Phone: Comment on above: PATIENT WAS FASTINGP ERFORMED BY: CB [facility] Grjolo2978 [address] RoadDublin [place] [id number] Calcium [Mass/Vol] 10.4 mg/dL Abnormal 8.6-10.2 [facility] Internal Medicine; [facility] Work Phone: Comment on above: PATIENT WAS FASTINGP ERFORMED BY: CB [facility] Ztdypx1973 [address] RoadDublin [place] [id number] Chloride [Moles/Vol] 96 mmol/L Normal 96-106 [facility] rehensive Internal Medicine; [facility] Work Phone: Comment on above: PATIENT WAS FASTINGP ERFORMED BY: CB [facility] Zoakje8393 [address] RoadFormerly Park [facility] Healthin [place] [id number] CO2 [Moles/Vol] 25 mmol/L Normal 20-29 [facility]; [facility] Work Phone: Comment on above: PATIENT WAS FASTINGP ERFORMED BY: CB [facility] Gehalv[address] [facility] [id number] Creatinine [Mass/Vol] 0.89 mg/dL Normal 0.76-1.27 [facility]; [facility] Work Phone: Comment on above: PATIENT WAS FASTINGP ERFORMED BY: CB [facility] Fwnxzi9[address] RoadFormerly [facility]in [place] [id number] GFR/1.73 sq M predicted among blacks CKD-EPI (S/P/Bld) [Vol rate/Area] 104 mL/min/1.73 Normal [facility]; [facility] Work Phone: Comment on above: PATIENT WAS FASTINGP ERFORMED BY: CB [facility] Gnvaik4313 [address] RoadNovant Health [facility] [id number] GFR/1.73 sq M predicted among non-blacks CKD-EPI (S/P/Bld) [Vol rate/Area] 90 mL/min/1.73 Normal [facility]; [facility] Work Phone: Comment on above: PATIENT WAS FASTINGP ERFORMED BY: CB [facility] Rfetnl[address] [facility]in [place] [id number] Globulin (S) [Mass/Vol] 3.0 g/dL Normal 1.5-4.5 [facility]; [facility] Work Phone: Comment on above: PATIENT WAS FASTINGP ERFORMED BY: ISHMAEL [facility] Ttfvta7703 [address]ui RoadDublin [place] [id number] Glucose [Mass/Vol] 105 mg/dL Abnormal 65-99 [facility] Internal Medicine; [facility] Work Phone: Comment on above: PATIENT WAS FASTINGP ERFORMED BY: CB [facility] Jsxakg6885 [address] RoadDublin [place] [id number] Potassium [Moles/Vol] 4.1 mmol/L Normal 3.5-5.2 [facility] Internal Medicine; [facility] Work Phone: Comment on above: PATIENT WAS FASTINGP ERFORMED BY: ISHMAEL [facility] Hhesju4705 [address] RoadDublin [place] [id number] Protein [Mass/Vol] 7.9 g/dL Normal 6.0-8.5 [facility] Internal Medicine; [facility] Work Phone: Comment on above: PATIENT WAS FASTINGP ERFORMED BY: [facility] Wzizup5[address] RoadDublin [place] [id number] Sodium [Moles/Vol] 139 mmol/L Normal 134-144 [facility] Internal Medicine; [facility] Work Phone: Comment on above: PATIENT WAS FASTINGP ERFORMED BY: [facility] Wyngrg7645 [address] RoadDublin [place] [id number] Urea nitrogen [Mass/Vol] 13 mg/dL Normal 8-27 [facility]; [facility] Work Phone: Comment on above: PATIENT WAS FASTINGP ERFORMED BY: [facility] Ypqagz7235 [address] RoadDublin [place] [id number] Urea nitrogen/Creatinine [Mass ratio] 15 mg/mg Normal 10-24 [facility]; [facility] Work Phone: Comment on above: PATIENT WAS FASTINGP ERFORMED BY: CB [facility] Fuxius1149 [address] RoadDublin [place] [id number] MICROALBUMINOrdered By: Syst em Clinical Resource Nurse on 06-24-2020 Albumin DL <= 20 mg/L (U) [Mass/Vol] 3.9 ug/mL Normal [facility]; [facility] Work Phone: Comment on above: PATIENT WAS FASTINGP ERFORMED BY: ISHMAEL DaniloJazmine ArmstrongDhflme5845 [address] RoadDublin [place] [id number] Albumin/Creatinine (U) [Mass ratio] 24 {mg/g_creat} Normal 0-29 [facility]; [facility] Work Phone: Comment on above: Normal: 0 - 29 Moder ately increased: 30 - 300 Severely increased: >300 PATIENT WAS FASTINGP ERFORMED BY: ISHMAEL [facility] Ndupfo0135 [address] RoadDublin [place] [id number] Creatinine (U) [Mass/Vol] 16.5 mg/dL Normal [facility]; [facility] Work Phone: Comment on above: PATIENT WAS FASTINGP ERFORMED BY: ISHMAEL Armstronglin6370 [address] RoadDublin [place] [id number] TSH ([id number])Ordered By: Piki m Clinical Resource Nurse on 06-24-2020 TSH Qn 3.140 {uIU/mL} Normal 0.450-4.50 0 [facility]; [facility] Work Phone: Comment on above: PATIENT WAS FASTINGP ERFORMED BY: ISHMAEL Whalen6370 [address] RoadDublin [place] [id number] URINALYSIS, W/ MICRO ([id number]) Ordered By: Tax Collection Coordinator on 06-24-2020 Appearance (U) Clear Normal Comprehens nuris Internal Medicine; [facility] Work Phone: Comment on above: PATIENT WAS FASTINGP ERFORMED BY: ISHMAEL LabTyrese Mgdzxy5238 [address] RoadDublin [place] [id number] Bilirubin Ql (U) Negative Normal Comprehe nsive Internal Medicine; [facility] Work Phone: Comment on above: PATIENT WAS FASTINGP ERFORMED BY: ISHMAEL LabTyrese Wpltjm6843 [address] RoadDublin [place] [id number] Bilirubin Ql (U) Negative Normal Comprehe nsive Internal Medicine; [facility] Work Phone: Comment on above: PATIENT WAS FASTINGP ERFORMED BY: ISHMAEL Whalen6[address] RoadDublin [place] [id number] Color (U) Yellow Normal [facility]; [facility] Work Phone: Comment on above: PATIENT WAS FASTINGP ERFORMED BY: ISHMAEL Whalen6[address] RoadDublin [place] [id number] Glucose Ql (U) Negative Normal Comprehens nuris Internal Medicine; [facility] Work Phone: Comment on above: PATIENT WAS FASTINGP ERFORMED BY: ISHMAEL Whalen6[address] RoadDublin [place] [id number] Glucose Ql (U) Negative Normal Comprehens nuris Internal Medicine; [facility] Work Phone: Comment on above: PATIENT WAS FASTINGP ERFORMED BY: ISHMAEL Leung70 [address] RoadDublin [place] [id number] Hemoglobin Ql (U) Negative Normal Compreh ensive Internal Medicine; [facility] Work Phone: Comment on above: PATIENT WAS FASTINGP ERFORMED BY: ISHMAEL Whalen6370 [address] RoadDuin [place] [id number] Hemoglobin Ql (U) Negative Normal Compreh ensive Internal Medicine; [facility] Work Phone: Comment on above: PATIENT WAS FASTINGP ERFORMED BY: ISHMAEL Leung70 [address] RoadDuin [place] [id number] Ketones Ql (U) Negative Normal Comprehens nuris Internal Medicine; [facility] Work Phone: Comment on above: PATIENT WAS FASTINGP ERFORMED BY: ISHMAEL Armstronglin6370 [address] RoadDuin [place] [id number] Ketones Ql (U) Negative Normal Comprehens nuris Internal Medicine; [facility] Work Phone: Comment on above: PATIENT WAS FASTINGP ERFORMED BY: ISHMAEL Armstronglin6370 [address] RoadDublin [place] [id number] Leukocyte esterase Test strip Ql (U) Trace Abnormal [facility]; [facility] Work Phone: Comment on above: PATIENT WAS FASTINGP ERFORMED BY: ISHMAEL Armstronglin6[address] RoadDublin [place] [id number] Microscopic observation LM Nom (Urine sed) See below: Normal [facility]; [facility] Work Phone: Comment on above: Microscopic was dawna cated and was performed. PATIENT WAS FASTINGP ERFORMED BY: ISHMAEL LabJazmine ArmstrongNzvxep2252 [address] RoadDublin [place] [id number] Nitrite Ql (U) Negative Normal Comprehens nuris Internal Medicine; [facility] Work Phone: Comment on above: PATIENT WAS FASTINGP ERFORMED BY: ISHMAEL LabCorolanda ArmstrongTbklcy2273 [address] RoadDublin [place] [id number] Nitrite Ql (U) Negative Normal Comprehens nuris Internal Medicine; [facility] Work Phone: Comment on above: PATIENT WAS FASTINGP ERFORMED BY: ISHMAEL Armstronglin6[address] RoadDublin [place] [id number] pH (U) 8.0 [pH] Abnormal 5.0-7.5 [facility]; [facility] Work Phone: Comment on above: PATIENT WAS FASTINGP ERFORMED BY: ISHMAEL LabCorolanda ArmstrongXdxzyk5090 [address] RoadDublin [place] [id number] Protein Ql (U) Negative Normal Comprehens nuris Internal Medicine; [facility] Work Phone: Comment on above: PATIENT WAS FASTINGP ERFORMED BY: ISHMAEL Armstronglin6[address] RoadDublin [place] [id number] Protein Ql (U) Negative Normal Comprehens nuris Internal Medicine; [facility] Work Phone: Comment on above: PATIENT WAS FASTINGP ERFORMED BY: ISHMAEL [facility] Jbebtv0489 [address] RoadDublin [place] [id number] Specific gravity (U) [Rel density] 1.008 1 Normal 1.005-1.03 0 [facility]; [facility] Work Phone: Comment on above: PATIENT WAS FASTINGP ERFORMED BY: ISHMAEL LabCorolanda ArmstrongLifvwo7511 [address]Dublin [place] [id number] Urobilinogen (U) [Mass/Vol] 0.2 mg/dL Normal 0.2-1.0 [facility]; [facility] Work Phone: Comment on above: PATIENT WAS FASTINGP ERFORMED BY: ISHMAEL [employer] Rx NetworksNovant Health New [facility] [id number] Urobilinogen Test strip (U) [Mass/Vol] 0.2 mg/dL Normal 0.2-1.0 Comprehensi Internal Medicine; [facility] Work Phone: Comment on above: PATIENT WAS FASTINGP ERFORMED BY: [employer]6370 [facility] [id number] VITAMIN B-12 (CYANOCOBALAMIN ) (11269)Ordered By: Tax Collection Coordinator on 06-24-2020 Cobalamin (Vitamin B12) [Mass/Vol] 438 pg/mL Normal 232-1245 [facility]; [facility] Work Phone: Comment on above: PATIENT WAS FASTINGP ERFORMED BY: [employer]6370 [facility] [id number] CT HEAD OR BRAIN WITHOUT CON TRASTon 06-12-2020 CT HEAD OR BRAIN WITHOUT CONTRAST EXAMINATION: CT HEAD OR BRAIN WITHOUT CONTRAST, 06/12/2020 COMPARISON: None. HISTORY: Injury/Trauma or Illness?:Illness/Other How long have you had these symptoms (acute/chronic)?:Acute Dizziness, non-specific TECHNIQUE: 2.5 mm axial images performed through the head. 3 mm sagittal and coronal MPR reconstructions performed. Dose reduction techniques were achieved by using automated exposure control and/or adjustment of mA and/or kV according to patient size and/or use of iterative reconstruction technique. FINDINGS: Age-related cerebral and cerebellar atrophy with associated ventricle prominence. Nonspecific periventricular white matter low attenuation, likely a sequela of small vessel disease. There is no evidence of acute hemorrhage, mass effect or midline shift. Visualized paranasal sinuses, mastoid air cells, and bony structures are unremarkable. IMPRESSION: 1. No acute intracranial abnormality identified. Please note, CT is insensitive to early ischemia and if there is further clinical concern, MRI is recommended. 2. Age-related atrophy with associated ventricular prominence and periventricular white matter small-vessel disease. GJT/ads Workstation ID: [id number] Dictated by: ALEX DUFF on MonJun 12, 2020 5:01:33 PM EDT Transcribed by: KASH DAVIS on MonJun 12, 2020 5:03:03 PM EDT Finalized by: ALEX DUFF on MonJun 12, 2020 11:12:55 PM EDT Normal [facility] Comment on above: Order Comment: Injur y/Trauma or Illness?:Illness/Other How long have you had these symptoms (acute/chronic)?:Acute Reason for exam?:Pt c/o dizziness starting today while he was at work. He denies n/v/d or fever. He denies n/t/p. He denies changes in vision or weakness to ext. He denies change in sensation or headache. He does relate PMH vertigo approx 1.5 months ago with right ear/sinus infection Type of Exam?:Initial Additional signs and symptoms?:no PARATHORMONE (92739)Ordered By: Tax Collection Coordinator on 02-11-2020 Parathyrin.intact [Mass/Vol] 31 pg/mL Normal 15-65 [facility] Work Phone: Comment on above: PATIENT NOT FASTINGP ERFORMED BY: [employer] [facility] Dteexx[address] Rx NetworksDublin [place] [id number] Systemic Lupus Profile (8623 5)Ordered By: Tax Collection Coordinator on 02-11-2020 Chromatin Ab Qn <0.2 Normal 0.0-0.9 [facility] Internal Medicine Work Phone: Comment on above: PATIENT NOT FASTINGP ERFORMED BY: CB [facility] Bkmfxr[address] TruMarx Data Partnersblin [place] [id number] DNA double strand Ab Qn (S) 20 {IU/mL} Abnormal 0-9 [facility] Work Phone: Comment on above: Negative <5 Equivoca l 5 - 9 Positive >9 PATIENT NOT FASTINGP ERFORMED BY: CB [facility] Tieaeb[address] Rx NetworksDublin [place] [id number] DNA double strand Ab Qn (S) 20 [IU]/mL Abnormal 0-9 [facility]; [facility] Work Phone: Comment on above: Negative <5 Equivoca l 5 - 9 Positive >9 PATIENT NOT FASTINGP ERFORMED BY: ISHMAEL LabCorolanda Hsgneh2149 [address] RoadDublin [place] [id number] Rheumatoid factor Qn [IU]/mL Normal 0.0-13.9 Comp rehensive Internal Medicine Work Phone: Comment on above: PATIENT NOT FASTINGP ERFORMED BY: CB [facility] Sjrets5043 [address] RoadDublin [place] [id number] Rheumatoid factor Qn [IU]/mL Normal 0.0-13.9 Comp rehensive Internal Medicine; [facility] Work Phone: Comment on above: PATIENT NOT FASTINGP ERFORMED BY: ISHMAEL LabJazmine ArmstrongSkaijt8826 [address] RoadDublin [place] [id number] Ribonucleoprotein extractable nuclear Ab Qn (S) <0.2 Normal 0.0-0.9 [facility] Work Phone: Comment on above: PATIENT NOT FASTINGP ERFORMED BY: ISHMAEL Arguello Zhqldp4169 [address] RoadDublin [place] [id number] Sjogrens syndrome-A extractable nuclear Ab Qn (S) <0.2 Normal 0.0-0.9 [facility] Work Phone: Comment on above: PATIENT NOT FASTINGP ERFORMED BY: ISHMAEL Arguello Derybt8671 [address] RoadDublin [place] [id number] Sjogrens syndrome-B extractable nuclear Ab Qn (S) <0.2 Normal 0.0-0.9 [facility] Work Phone: Comment on above: PATIENT NOT FASTINGP ERFORMED BY: ISHMAEL [facility] Defwyq5809 [address] RoadDublin [place] [id number] Bone extractable nuclear Ab Qn (S) <0.2 Normal 0.0-0.9 [facility] Work Phone: Comment on above: PATIENT NOT FASTINGP ERFORMED BY: ISHMAEL [facility] Tzyvrf0324 [address] RoadDublin [place] [id number] T3, FREE (TRIDOTHYRONINE) (9 3823)Ordered By: Tax Collection Coordinator on 02-11-2020 Free T3 [Mass/Vol] 3.8 pg/mL Normal 2.0-4.4 [facility] Internal Medicine Work Phone: Comment on above: PATIENT NOT FASTINGP ERFORMED BY: ID.meWeisman Children's Rehabilitation HospitalAdxbvi0137 [facility] [id number] T4, FREE (THYROXINE) (35155) Ordered By: Tax Collection Coordinator on 02-11-2020 Free T4 [Mass/Vol] 1.28 ng/dL Normal 0.82-1.77 [facility] Internal Medicine Work Phone: Comment on above: PATIENT NOT FASTINGP ERFORMED BY: ID.meWeisman Children's Rehabilitation HospitalYdrjrf4174 [facility] [id number] TSH (THYROID STIMULATING HOR REYES) (05875)Ordered By: Tax Collection Coordinator on 02-11-2020 TSH Qn 4.460 {uIU/mL} Normal 0.450-4.50 0 [facility] Internal Medicine Work Phone: Comment on above: PATIENT NOT FASTINGP ERFORMED BY: ID.meWeisman Children's Rehabilitation HospitalAtzjks2602 [facility] [id number] TULIO (ANTINUCLEAR ANTIBODY) ( 50981)Ordered By: Tax Collection Coordinator on 01-28-2020 Nuclear Ab Ql (S) Positive Abnormal Compreh ensive Internal Medicine Work Phone: Comment on above: Test(s) 646710-Kpnos ic, Blood; 576484-Iaeuira, Blood; 372782-Chydwpp, Bloodwas developed and its performance characteristics determinedby adicate timeads. It has not been cleared or approved by the Foodand Drug Administration.PATIENT NOT FASTINGPERFORMED BY: [employer]ZIL[address] [id number] BY: ID.meWeisman Children's Rehabilitation HospitalZskrji5946 [facility] [id number] Nuclear Ab Ql (S) Positive Abnormal Compreh ensive Internal Medicine; [facility] Work Phone: Comment on above: Test(s) 413881-Linju ic, Blood; 119788-Twrlvbc, Blood; 054200-Vdhrtng, Bloodwas developed and its performance characteristics determinedby adicate timeads. It has not been cleared or approved by the Foodand Drug Administration.PATIENT NOT FASTINGPERFORMED BY: ID.me[address] [id number] BY: ID.meWeisman Children's Rehabilitation HospitalRqlqjh2021 [facility] [id number] CBC & PLATELETS (AUTO) (8502 7)Ordered By: Tax Collection Coordinator on 01-28-2020 Erythrocyte distribution width (RBC) [Ratio] 12.6 % Normal 11.6-15.4 [facility] Work Phone: Comment on above: Test(s) 821388-Vsyen ic, Blood; 845654-Admdacf, Blood; 978797-Kxcxsai, Bloodwas developed and its performance characteristics determinedby adicate timeads. It has not been cleared or approved by the Foodand Drug Administration.PATIENT NOT FASTINGPERFORMED BY: adicate timeads [address] [id number] BY: ID.meWeisman Children's Rehabilitation HospitalTugsee9401 [facility] [id number] Hematocrit (Bld) [Volume fraction] 46.9 % Normal 37.5-51.0 [facility] Work Phone: Comment on above: Test(s) 074771-Ggsla ic, Blood; 445597-Ifkuylc, Blood; 164119-Xuqsdru, Bloodwas developed and its performance characteristics determinedby adicate timeads. It has not been cleared or approved by the Foodand Drug Administration.PATIENT NOT FASTINGPERFORMED BY: ID.me[address] [id number] BY: ID.meWeisman Children's Rehabilitation HospitalXwmqow7902 [facility] [id number] Hemoglobin (Bld) [Mass/Vol] 16.1 g/dL Normal 13.0-17.7 [facility] Work Phone: Comment on above: Test(s) 934811-Wjvnr ic, Blood; 834864-Vwrwwiq, Blood; 366003-Zwqdeml, Bloodwas developed and its performance characteristics determinedby adicate timeads. It has not been cleared or approved by the Foodand Drug Administration.PATIENT NOT FASTINGPERFORMED BY: ID.me[address] [id number] BY: ID.meWeisman Children's Rehabilitation HospitalZqvcsl4180 [facility] [id number] MCH (RBC) [Entitic mass] 31.6 pg Normal 26.6-33.0 [facility] Internal Medicine Work Phone: Comment on above: Test(s) 501876-Bygqg ic, Blood; 497540-Tkslnrs, Blood; 636364-Ghfsaae, Bloodwas developed and its performance characteristics determinedby adicate timeads. It has not been cleared or approved by the Foodand Drug Administration.PATIENT NOT FASTINGPERFORMED BY: ID.me[address] [id number] BY: ID.me Ttjyex4333 [facility] [id number] MCHC (RBC) [Mass/Vol] 34.3 g/dL Normal 31.5-35.7 [facility] Internal Medicine Work Phone: Comment on above: Test(s) 037640-Thkgx ic, Blood; 032899-Mmmmdga, Blood; 449366-Beormls, Bloodwas developed and its performance characteristics determinedby adicate timeads. It has not been cleared or approved by the Foodand Drug Administration.PATIENT NOT FASTINGPERFORMED BY: ID.me[address] [id number] BY: ID.meZia Health ClinicAduepi5667 [facility] [id number] MCV (RBC) [Entitic vol] 92 fL Normal 79-97 [facility] Internal Medicine Work Phone: Comment on above: Test(s) 613927-Lvcif ic, Blood; 546126-Spmwjtf, Blood; 590824-Fodncxi, Bloodwas developed and its performance characteristics determinedby adicate timeads. It has not been cleared or approved by the Foodand Drug Administration.PATIENT NOT FASTINGPERFORMED BY: ID.me[address] [id number] BY: ID.meWeisman Children's Rehabilitation HospitalTwygzm4963 [facility] [id number] Platelets (Bld) [#/Vol] 291 {x10E3/uL} Normal 150-450 [facility] Internal Medicine Work Phone: Comment on above: Test(s) 147459-Tdayc ic, Blood; 233553-Vsnbkuw, Blood; 092883-Hdyccuz, Bloodwas developed and its performance characteristics determinedby LabCapella Photonics. It has not been cleared or approved by the Foodand Drug Administration.PATIENT NOT FASTINGPERFORMED BY: [employer] [address] [id number] BY: [employer] Kxmuhj5[address] Rx NetworksNovant Health [facility] [id number] Platelets (Bld) [#/Vol] 291 10*3/uL Normal 150-450 [facility] Internal Medicine; [facility] Internal Medicine Work Phone: Comment on above: Test(s) 356477-Tfaan ic, Blood; 625218-Dfcrxkf, Blood; 142528-Srzetkr, Bloodwas developed and its performance characteristics determinedby adicate timeads. It has not been cleared or approved by the Foodand Drug Administration.PATIENT NOT FASTINGPERFORMED BY: [employer] [address] [id number] BY: Kalistick70 [address] Rx NetworksNovant Health [facility] [id number] RBC (Bld) [#/Vol] 5.09 {x10E6/uL} Normal 4.14-5.80 [facility] Internal [facility] Work Phone: Comment on above: Test(s) 609671-Ojzek ic, Blood; 068270-Lkqmxwj, Blood; 434311-Jscgkxo, Bloodwas developed and its performance characteristics determinedby adicate timeads. It has not been cleared or approved by the Foodand Drug Administration.PATIENT NOT FASTINGPERFORMED BY: ID.me[address] [id number] BY: [employer], LLCWeisman Children's Rehabilitation HospitalRzeofa6217 [facility] [id number] RBC (Bld) [#/Vol] 5.09 10*6/uL Normal 4.14-5.80 [facility] Internal Medicine; [facility] Internal Medicine Work Phone: Comment on above: Test(s) 790317-Uouis ic, Blood; 857495-Tpnxsjc, Blood; 567351-Vnzprtn, Bloodwas developed and its performance characteristics determinedby adicate timeads. It has not been cleared or approved by the Foodand Drug Administration.PATIENT NOT FASTINGPERFORMED BY: [employer] [address] [id number] BY: Kalist[employer]70 [facility] KinematicsNovant Health [id number] WBC (Bld) [#/Vol] 5.2 {x10E3/uL} Normal 3.4-10.8 [facility] Work Phone: Comment on above: Test(s) 621732-Qzjiu ic, Blood; 042581-Guxcube, Blood; 471061-Rxpibfi, Bloodwas developed and its performance characteristics determinedby adicate timeads. It has not been cleared or approved by the Foodand Drug Administration.PATIENT NOT FASTINGPERFORMED BY: [employer] [id number] BY: Kal[employer]70 Ortho KinematicsNovant Health [id number] WBC (Bld) [#/Vol] 5.2 10*3/uL Normal 3.4-10.8 [facility] Internal Medicine; [facility] Work Phone: Comment on above: Test(s) 794259-Requw ic, Blood; 180082-Uudtbok, Blood; 555387-Pggyalj, Bloodwas developed and its performance characteristics determinedby adicate timeads. It has not been cleared or approved by the Foodand Drug Administration.PATIENT NOT FASTINGPERFORMED BY: [employer] [address] [id number] BY: [employer]70 [facility] KinematicsNovant Health [id number] HEAVY METAL SCREEN (46887)Or dered By: Tax Collection Coordinator on 01-28-2020 Arsenic (Bld) [Mass/Vol] 6 ug/L Normal 2-23 [facility] Work Phone: Comment on above: Detection Limit = 1 Test(s) 259164-Vucio ic, Blood; 345130-Gaclbpu, Blood; 925313-Wyukfql, Bloodwas developed and its performance characteristics determinedby adicate timeads. It has not been cleared or approved by the Foodand Drug Administration.PATIENT NOT FASTINGPERFORMED BY: ID.me[address] [id number] BY: ID.meWeisman Children's Rehabilitation HospitalMdasrh8111 [facility] [id number] Cadmium (Bld) [Mass/Vol] 0.5 ug/L Normal 0.0-1.2 [facility] Internal Medicine Work Phone: Comment on above: Environmental Exposu re: Nonsmokers 0.3 - 1.2 Smokers 0.6 - 3.9 Occupational Exposure: OSHA Cadmium Std 5.0 PANFILO 5.0 . Detection Limit = 0.5 Test(s) 068681-Geuzj ic, Blood; 998353-Xltsaeo, Blood; 684798-Usvqgte, Bloodwas developed and its performance characteristics determinedby adicate timeads. It has not been cleared or approved by the Foodand Drug Administration.PATIENT NOT FASTINGPERFORMED BY: ID.me[address] [id number] BY: ID.meWeisman Children's Rehabilitation HospitalVpxyyy4555 [facility] [id number] Lead (Bld) [Mass/Vol] 2 ug/dL Normal 0-4 [facility] Internal Medicine Work Phone: Comment on above: Testing performed by Inductively coupled plasma/Mass Spectrometry. Environmental Exposure: WHO Recommendation <20 Occupational Exposure: OSHA Lead Std 40 PANFILO 30 . Detection Limit = 1 . This test was developed and its performance characteristics determined by adicate timeads. It has not been cleared or approved by the Food and Drug Administration. Test(s) 886040-Jdkvu ic, Blood; 174034-Dhxomvc, Blood; 586373-Brnnzno, Bloodwas developed and its performance characteristics determinedby adicate timeads. It has not been cleared or approved by the Foodand Drug Administration.PATIENT NOT FASTINGPERFORMED BY: ID.me[address] [id number] BY: Corral Labslin6370 [facility] [id number] Mercury (Bld) [Mass/Vol] <1.0 Normal 0.0-14.9 [facility] Work Phone: Comment on above: Environmental Exposu re: <15.0 Occupational Exposure: PANFILO - Inorganic Mercury: 15.0 . Detection Limit = 1.0 Test(s) 969242-Fygvt ic, Blood; 036112-Wgnkwij, Blood; 905748-Admwpnh, Bloodwas developed and its performance characteristics determinedby adicate timeads. It has not been cleared or approved by the Foodand Drug Administration.PATIENT NOT FASTINGPERFORMED BY: [employer] [address] [id number] BY: [employer]Tr[employer], LLCWeisman Children's Rehabilitation HospitalQtffks8013 [facility] [id number] HEPATITIS C ANTIBODY (30833) Ordered By: Tax Collection Coordinator on 01-28-2020 HCV Ab Signal/Cutoff IA [Rel units/Vol] {ratio} Normal 0.0-0.9 [facility] Work Phone: Comment on above: Negative: < 0.8 Inde terminate: 0.8 - 0.9 Positive: > 0.9 . The CDC recommends that a positive HCV antibody result be followed up with a HCV Nucleic Acid Amplification test (977080). Test(s) 810791-Kbmrp ic, Blood; 251305-Scwokig, Blood; 831608-Tymgpan, Bloodwas developed and its performance characteristics determinedby adicate timeads. It has not been cleared or approved by the Foodand Drug Administration.PATIENT NOT FASTINGPERFORMED BY: adicate timeads [address] [id number] BY: ID.meWeisman Children's Rehabilitation HospitalJnpdpm4482 [facility] [id number] HCV Ab Signal/Cutoff IA [Rel units/Vol] {ratio} Normal 0.0-0.9 [facility]; [facility] Work Phone: Comment on above: Negative: < 0.8 Inde terminate: 0.8 - 0.9 Positive: > 0.9 . The CDC recommends that a positive HCV antibody result be followed up with a HCV Nucleic Acid Amplification test (027726). Test(s) 123357-Kdcyl ic, Blood; 535383-Wzhcmjx, Blood; 754601-Kaiklro, Bloodwas developed and its performance characteristics determinedby adicate timeads. It has not been cleared or approved by the Foodand Drug Administration.PATIENT NOT FASTINGPERFORMED BY: Phytel[address] [id number] BY: Wave Crest GroupNovant Health [id number] METABOLIC PANEL, COMPREHENSI VE (30283)Ordered By: Tax Collection Coordinator on 01-28-2020 Albumin [Mass/Vol] 4.9 g/dL Abnormal 3.8-4.8 [facility] Internal Medicine Work Phone: Comment on above: Test(s) 547126-Uwagb ic, Blood; 211649-Xiayybw, Blood; 665647-Ylgkgeh, Bloodwas developed and its performance characteristics determinedby adicate timeads. It has not been cleared or approved by the Foodand Drug Administration.PATIENT NOT FASTINGPERFORMED BY: A[employer] [address] [id number] BY: Kalistick70 Ortho KinematicsNovant Health [id number] Albumin/Globulin [Mass ratio] 1.6 {ratio} Normal 1.2-2.2 [facility] Work Phone: Comment on above: Test(s) 861436-Bgqch ic, Blood; 526654-Jdgwamh, Blood; 706089-Lbwqxhn, Bloodwas developed and its performance characteristics determinedby adicate timeads. It has not been cleared or approved by the Foodand Drug Administration.PATIENT NOT FASTINGPERFORMED BY: A[employer] [address] [id number] BY: Kalistick70 Uriostegui Rx NetworksNovant Health [facility] [id number] ALP [Catalytic activity/Vol] 63 [iU]/L Normal 39-117 [facility] Work Phone: Comment on above: Test(s) 379893-Zvtfh ic, Blood; 471988-Zkiamxd, Blood; 125949-Uzafnhr, Bloodwas developed and its performance characteristics determinedby adicate timeads. It has not been cleared or approved by the Foodand Drug Administration.PATIENT NOT FASTINGPERFORMED BY: TARGET BRAZIL[address] [id number] BY: White HospitalCardioroboticsWeisman Children's Rehabilitation HospitalTqtvzq0583 [facility] [id number] ALP [Catalytic activity/Vol] 63 U/L Normal 39-117 [facility]; [facility] Work Phone: Comment on above: Test(s) 775672-Ahysk ic, Blood; 765726-Ijzfobc, Blood; 249694-Ixcwehm, Bloodwas developed and its performance characteristics determinedby adicate timeads. It has not been cleared or approved by the Foodand Drug Administration.PATIENT NOT FASTINGPERFORMED BY: ID.me[address] [id number] BY: ID.meSonya [place] [id number] Uriostegui Rx NetworksNovant Health [facility] [id number] ALT [Catalytic activity/Vol] 32 [iU]/L Normal 0-44 [facility] Work Phone: Comment on above: Test(s) 112212-Yikna ic, Blood; 397200-Xkmagqg, Blood; 121171-Vgeqdeh, Bloodwas developed and its performance characteristics determinedby adicate timeads. It has not been cleared or approved by the Foodand Drug Administration.PATIENT NOT FASTINGPERFORMED BY: TARGET BRAZIL[address] [id number] BY: ID.meWeisman Children's Rehabilitation HospitalJdgdyn0198 [facility] [id number] ALT [Catalytic activity/Vol] 32 U/L Normal 0-44 [facility]; [facility] Work Phone: Comment on above: Test(s) 560279-Fbqxz ic, Blood; 350992-Jczaizu, Blood; 438909-Uaacoql, Bloodwas developed and its performance characteristics determinedby adicate timeads. It has not been cleared or approved by the Foodand Drug Administration.PATIENT NOT FASTINGPERFORMED BY: ID.meJohn [place] [id number] BY: ID.me Mdrwcf7719 Uriostegui RoadDublin [place] [id number] AST [Catalytic activity/Vol] 28 [iU]/L Normal 0-40 [facility] Internal Medicine Work Phone: Comment on above: Test(s) 634913-Kmhsu ic, Blood; 292589-Eenazdh, Blood; 036504-Bsvnrcr, Bloodwas developed and its performance characteristics determinedby adicate timeads. It has not been cleared or approved by the Foodand Drug Administration.PATIENT NOT FASTINGPERFORMED BY: ID.me[address] [id number] BY: ID.me Qeezmj4991 Uriostegui Rx NetworksDublin [place] [id number] AST [Catalytic activity/Vol] 28 U/L Normal 0-40 [facility] Internal Medicine; [facility] Internal Medicine Work Phone: Comment on above: Test(s) 203457-Czdyh ic, Blood; 708118-Lgcoyzg, Blood; 153752-Akvnawv, Bloodwas developed and its performance characteristics determinedby adicate timeads. It has not been cleared or approved by the Foodand Drug Administration.PATIENT NOT FASTINGPERFORMED BY: ID.me[address] [id number] BY: ID.me Mckymc2501 Uriostegui RoadDublin [place] [id number] Bilirubin [Mass/Vol] 0.5 mg/dL Normal 0.0-1.2 [facility] Internal Medicine Work Phone: Comment on above: Test(s) 137690-Rcltc ic, Blood; 846498-Vnuwvmu, Blood; 272022-Oyddjou, Bloodwas developed and its performance characteristics determinedby adicate timeads. It has not been cleared or approved by the Foodand Drug Administration.PATIENT NOT FASTINGPERFORMED BY: ID.me[address] [id number] BY: ID.me Wfzqce9627 Uriostegui RoadDublin [place] [id number] Calcium [Mass/Vol] 10.5 mg/dL Abnormal 8.6-10.2 [facility] Internal Medicine Work Phone: Comment on above: Test(s) 080423-Deemh ic, Blood; 421401-Egduxml, Blood; 710390-Qafgyci, Bloodwas developed and its performance characteristics determinedby [facility]. It has not been cleared or approved by the Foodand Drug Administration.PATIENT NOT FASTINGPERFORMED BY: Apt[employer] [address] [id number] BY: Kalistick70 [employer] [place] [id number] Chloride [Moles/Vol] 95 mmol/L Abnormal 96-106 [facility] Work Phone: Comment on above: Test(s) 637654-Zjchz ic, Blood; 287992-Vmikroy, Blood; 530168-Xlqiube, Bloodwas developed and its performance characteristics determinedby LabCardioroboticsrp. It has not been cleared or approved by the Foodand Drug Administration.PATIENT NOT FASTINGPERFORMED BY: [employer] [id number] BY: Kalistick70 [employer] [place] [id number] CO2 [Moles/Vol] 27 mmol/L Normal 20-29 [facility] Internal Medicine Work Phone: Comment on above: Test(s) 344284-Qaijd ic, Blood; 412379-Xczajgw, Blood; 384273-Epivxxx, Bloodwas developed and its performance characteristics determinedby LabCoTap2print. It has not been cleared or approved by the Foodand Drug Administration.PATIENT NOT FASTINGPERFORMED BY: Apt[employer] [address] [id number] BY: Kalistick70 [employer] [place] [id number] Creatinine [Mass/Vol] 0.86 mg/dL Normal 0.76-1.27 [facility] Work Phone: Comment on above: Test(s) 068422-Uwuke ic, Blood; 512326-Sgstlrv, Blood; 150723-Cmlgoip, Bloodwas developed and its performance characteristics determinedby adicate timeads. It has not been cleared or approved by the Foodand Drug Administration.PATIENT NOT FASTINGPERFORMED BY: TARGET BRAZILDonald Ville [id number] BY: [place] [id number] [facility] [id number] GFR/1.73 sq M predicted among blacks CKD-EPI (S/P/Bld) [Vol rate/Area] 107 mL/min/1.73 Normal [facility] Work Phone: Comment on above: Test(s) 867910-Bcjnw ic, Blood; 201478-Ckwjfvf, Blood; 701555-Mneqfws, Bloodwas developed and its performance characteristics determinedby adicate timeads. It has not been cleared or approved by the Foodand Drug Administration.PATIENT NOT FASTINGPERFORMED BY: ID.me[address] [id number] BY: White HospitalCardioroboticsSonya Ville [id number] [facility] [id number] GFR/1.73 sq M predicted among non-blacks CKD-EPI (S/P/Bld) [Vol rate/Area] 92 mL/min/1.73 Normal [facility] Work Phone: Comment on above: Test(s) 867964-Pxqgd ic, Blood; 051755-Fjrfixh, Blood; 221307-Oaaxnwa, Bloodwas developed and its performance characteristics determinedby adicate timeads. It has not been cleared or approved by the Foodand Drug Administration.PATIENT NOT FASTINGPERFORMED BY: TARGET BRAZIL[address] [id number] BY: [place] [id number] [facility] [id number] Globulin (S) [Mass/Vol] 3.1 g/dL Normal 1.5-4.5 [facility] Work Phone: Comment on above: Test(s) 758691-Umqra ic, Blood; 634343-Gzbpdnn, Blood; 018986-Jefnojw, Bloodwas developed and its performance characteristics determinedby adicate timeads. It has not been cleared or approved by the Foodand Drug Administration.PATIENT NOT FASTINGPERFORMED BY: ID.me[address] [id number] BY: LabCardiorobotics Zitfvs1185 Uriostegui TruMarx Data PartnersNovant Health [id number] Glucose [Mass/Vol] 112 mg/dL Abnormal 65-99 [facility] Internal Medicine Work Phone: Comment on above: Test(s) 604050-Uldvu ic, Blood; 947638-Fdibqta, Blood; 471397-Flcykoe, Bloodwas developed and its performance characteristics determinedby adicate timeads. It has not been cleared or approved by the Foodand Drug Administration.PATIENT NOT FASTINGPERFORMED BY: ID.me[address] [id number] BY: ID.meZia Health ClinicQoupam8476 [facility] [id number] Potassium [Moles/Vol] 4.8 mmol/L Normal 3.5-5.2 [facility] Internal Medicine Work Phone: Comment on above: Test(s) 581519-Jmkuh ic, Blood; 621694-Zuqacmo, Blood; 071226-Mnkgrkl, Bloodwas developed and its performance characteristics determinedby adicate timeads. It has not been cleared or approved by the Foodand Drug Administration.PATIENT NOT FASTINGPERFORMED BY: ID.me[address] [id number] BY: LabCardioroboticsZia Health ClinicAvcjpi9509 Uriostegui Rx NetworksNovant Health [facility] [id number] Protein [Mass/Vol] 8.0 g/dL Normal 6.0-8.5 [facility] Internal Medicine Work Phone: Comment on above: Test(s) 818037-Qvtec ic, Blood; 513550-Thmlact, Blood; 560742-Sdiphkm, Bloodwas developed and its performance characteristics determinedby adicate timeads. It has not been cleared or approved by the Foodand Drug Administration.PATIENT NOT FASTINGPERFORMED BY: ID.me[address] [id number] BY: ID.meSonya [place] 8703770 Kirby RoadDuNovant Health [id number] Sodium [Moles/Vol] 138 mmol/L Normal 134-144 [facility] Internal Medicine Work Phone: Comment on above: Test(s) 966665-Yfxxk ic, Blood; 220547-Sialwgl, Blood; 552557-Npdwome, Bloodwas developed and its performance characteristics determinedby adicate timeads. It has not been cleared or approved by the Foodand Drug Administration.PATIENT NOT FASTINGPERFORMED BY: ID.me[address] [id number] BY: ID.meZia Health ClinicGsioua4826 [facility] [id number] Urea nitrogen [Mass/Vol] 10 mg/dL Normal 8-27 [facility] Internal Medicine Work Phone: Comment on above: Test(s) 432580-Kqlkb ic, Blood; 709061-Oipthvo, Blood; 018982-Pbxzlur, Bloodwas developed and its performance characteristics determinedby adicate timeads. It has not been cleared or approved by the Foodand Drug Administration.PATIENT NOT FASTINGPERFORMED BY: ID.me[address] [id number] BY: ID.me Wlxfhb6431 Uriostegui TruMarx Data PartnersNovant Health [id number] Urea nitrogen/Creatinine [Mass ratio] 12 mg/mg Normal 10-24 [facility] Internal Medicine Work Phone: Comment on above: Test(s) 339289-Wvugh ic, Blood; 968668-Lyzruca, Blood; 624358-Tqjpkhn, Bloodwas developed and its performance characteristics determinedby adicate timeads. It has not been cleared or approved by the Foodand Drug Administration.PATIENT NOT FASTINGPERFORMED BY: ID.me[address] [id number] BY: ID.meWeisman Children's Rehabilitation HospitalOwihvd3576 [facility] [id number] SED RATE ERYTHROCYTE (82318) Ordered By: Tax Collection Coordinator on 01-28-2020 ESR (Bld) [Velocity] 8 mm/h Normal 0-30 [facility] Internal Medicine Work Phone: Comment on above: Test(s) 507129-Oidvz ic, Blood; 134415-Eqfmskm, Blood; 189807-Jswsydu, Bloodwas developed and its performance characteristics determinedby adicate timeads. It has not been cleared or approved by the Foodand Drug Administration.PATIENT NOT FASTINGPERFORMED BY: [employer] [address] [id number] BY: [employer] Nyhenr9889 Ortho KinematicsNovant Health [id number] Serum Protein Electrophoresi s (SPEP) (34235)Ordered By: Tax Collection Coordinator on 01-28-2020 Albumin [Mass/Vol] 4.2 g/dL Normal 2.9-4.4 [facility] Internal Medicine Work Phone: Comment on above: Test(s) 299548-Hkyyv ic, Blood; 895609-Lrqwkhi, Blood; 880414-Mtnnfhz, Bloodwas developed and its performance characteristics determinedby adicate timeads. It has not been cleared or approved by the Foodand Drug Administration.PATIENT NOT FASTINGPERFORMED BY: Apt[employer] [address] [id number] BY: Kalistick70 [facility] KinematicsNovant Health [id number] Albumin/Globulin [Mass ratio] 1.1 {ratio} Normal 0.7-1.7 [facility] Internal Medicine Work Phone: Comment on above: Test(s) 290717-Tjbhn ic, Blood; 011427-Tinopfs, Blood; 897736-Rokjwpp, Bloodwas developed and its performance characteristics determinedby adicate timeads. It has not been cleared or approved by the Foodand Drug Administration.PATIENT NOT FASTINGPERFORMED BY: A[employer] [address] [id number] BY: [employer] Auiouu7155 Ortho KinematicsNovant Health [id number] Alpha 1 globulin Elph [Mass/Vol] 0.3 g/dL Normal 0.0-0.4 [facility] Work Phone: Comment on above: Test(s) 065833-Poxoy ic, Blood; 916341-Imauuug, Blood; 991554-Zczglar, Bloodwas developed and its performance characteristics determinedby LabCapella Photonics. It has not been cleared or approved by the Foodand Drug Administration.PATIENT NOT FASTINGPERFORMED BY: TARGET BRAZIL[address] [id number] BY: ID.meSonya [place] 8703770 [facility] [id number] Alpha 2 globulin Elph [Mass/Vol] 0.9 g/dL Normal 0.4-1.0 [facility] Work Phone: Comment on above: Test(s) 871074-Diakd ic, Blood; 359877-Sntgkyx, Blood; 884123-Agtepsq, Bloodwas developed and its performance characteristics determinedby LabCapella Photonics. It has not been cleared or approved by the Foodand Drug Administration.PATIENT NOT FASTINGPERFORMED BY: ID.me[address] [id number] BY: ID.meS[place] 8703770 [facility] [id number] Beta globulin Elph [Mass/Vol] 1.3 g/dL Normal 0.7-1.3 [facility] Work Phone: Comment on above: Test(s) 762243-Qytbd ic, Blood; 917839-Ngiirnq, Blood; 826532-Uwhodlu, Bloodwas developed and its performance characteristics determinedby LabCapella Photonics. It has not been cleared or approved by the Foodand Drug Administration.PATIENT NOT FASTINGPERFORMED BY: TARGET BRAZIL[address] [id number] BY: ID.meS[place] 8703770 [facility] [id number] Gamma globulin Elph [Mass/Vol] 1.4 g/dL Normal 0.4-1.8 [facility] Work Phone: Comment on above: Test(s) 883311-Nktep ic, Blood; 008390-Tnahvwl, Blood; 166980-Jghgvkj, Bloodwas developed and its performance characteristics determinedby LabCapella Photonics. It has not been cleared or approved by the Foodand Drug Administration.PATIENT NOT FASTINGPERFORMED BY: A[employer] [address] [id number] BY: ID.me Urwdlj8403 Uriostegui Rx NetworksNovant Health [facility] [id number] Globulin (S) [Mass/Vol] 3.8 g/dL Normal 2.2-3.9 [facility] Work Phone: Comment on above: Test(s) 226489-Jouie ic, Blood; 805469-Mvdrarc, Blood; 723397-Hwroali, Bloodwas developed and its performance characteristics determinedby adicate timeads. It has not been cleared or approved by the Foodand Drug Administration.PATIENT NOT FASTINGPERFORMED BY: A[employer] [address] [id number] BY: [employer] Prlxzy2846 [facility]egui Rx NetworksNovant Health [facility] [id number] Laboratory comment Valdemar (Report) [facility] Normal [facility] Work Phone: Comment on above: Protein electrophore sis scan will follow via computer, mail, orcourier delivery. Test(s) 508000-Psjsh ic, Blood; 856516-Lqqqfds, Blood; 081255-Wedvuuy, Bloodwas developed and its performance characteristics determinedby adicate timeads. It has not been cleared or approved by the Foodand Drug Administration.PATIENT NOT FASTINGPERFORMED BY: Phytel[address] [id number] BY: ID.me [id number] [facility] [id number] Laboratory report . Normal Compreh ensive Internal Medicine Work Phone: Comment on above: Test(s) 177302-Jxsar ic, Blood; 594024-Vwesdbm, Blood; 164208-Kusukti, Bloodwas developed and its performance characteristics determinedby adicate timeads. It has not been cleared or approved by the Foodand Drug Administration.PATIENT NOT FASTINGPERFORMED BY: Phytel[address] [id number] BY: ID.me Qecsfc6261 [facility] [id number] Protein.monoclonal Elph [Mass/Vol] Not Observed Normal [facility] Work Phone: Comment on above: Test(s) 689249-Emqsp ic, Blood; 282068-Uvyxllw, Blood; 548332-Tduuxnh, Bloodwas developed and its performance characteristics determinedby adicate timeads. It has not been cleared or approved by the Foodand Drug Administration.PATIENT NOT FASTINGPERFORMED BY: A[employer] [address] [id number] BY: Wave Crest GroupNovant Health [id number] TSH (THYROID STIMULATING HOR REYES) (05101)Ordered By: Tax Collection Coordinator on 01-28-2020 TSH Qn 5.740 {uIU/mL} Abnormal 0.450-4.50 0 [facility] Work Phone: Comment on above: Test(s) 517504-Bfquf ic, Blood; 852065-Ybdwozz, Blood; 126743-Tdhjfnh, Bloodwas developed and its performance characteristics determinedby adicate timeads. It has not been cleared or approved by the Foodand Drug Administration.PATIENT NOT FASTINGPERFORMED BY: Apt[employer] [address] [id number] BY: Kalistick70 [facility] KinematicsNovant Health [id number] VITAMIN B-12 (CYANOCOBALAMIN ) (25844)Ordered By: Tax Collection Coordinator on 01-28-2020 Cobalamin (Vitamin B12) [Mass/Vol] 257 pg/mL Normal 232-1245 [facility] Work Phone: Comment on above: Test(s) 549017-Aezwx ic, Blood; 645538-Loapmwc, Blood; 009446-Htragxo, Bloodwas developed and its performance characteristics determinedby adicate timeads. It has not been cleared or approved by the Foodand Drug Administration.PATIENT NOT FASTINGPERFORMED BY: A[employer] [address] [id number] BY: Kalistick70 [facility] KinematicsNovant Health [id number] 2019 Novel Coronavirus (COVI D-19), LUKAS (19756)Ordered By: Tax Collection Coordinator on 01-24-2020 2019 Novel Coronavirus (COVID-19), LUKAS (32916) Not Detected Normal [facility] Work Phone: Comment on above: This nucleic acid am plification test was developed and its performancecharacteristics determined by [employer]. Nucleic acidamplification tests include PCR and TMA. This test has not been FDAcleared or approved. This test has been authorized by FDA under anEmergency Use Authorization (EUA). This test is only authorized forthe duration of time the declaration that circumstances existjustifying the authorization of the emergency use of in vitrodiagnostic tests for detection of SARS-CoV-2 virus and/or diagnosisof COVID-19 infection under section 564(b)(1) of the Act, 21 U.S.C.360bbb-3(b) (1), unless the authorization is terminated or revokedsooner.When diagnostic testing is negative, the possibility of a falsenegative result should be considered in the context of a patient'srecent exposures and the presence of clinical signs and symptomsconsistent with COVID-19. An individual without symptoms of COVID-19and who is not shedding SARS-CoV-2 virus would expect to have anegative (not detected) result in this assay. PATIENT NOT FASTINGP ERFORMED BY: NEHA ID.me [id number] PADMINI Rai [facility] [id number] 2018 Novel Coronavirus (COVID-19), LUKAS (64576) Not detected Normal [facility]; [facility] Work Phone: Comment on above: This nucleic acid am plification test was developed and its performancecharacteristics determined by [employer]. Nucleic acidamplification tests include PCR and TMA. This test has not been FDAcleared or approved. This test has been authorized by FDA under anEmergency Use Authorization (EUA). This test is only authorized forthe duration of time the declaration that circumstances existjustifying the authorization of the emergency use of in vitrodiagnostic tests for detection of SARS-CoV-2 virus and/or diagnosisof COVID-19 infection under section 564(b)(1) of the Act, 21 U.S.C.360bbb-3(b) (1), unless the authorization is terminated or revokedsooner.When diagnostic testing is negative, the possibility of a falsenegative result should be considered in the context of a patient'srecent exposures and the presence of clinical signs and symptomsconsistent with COVID-19. An individual without symptoms of COVID-19and who is not shedding SARS-CoV-2 virus would expect to have anegative (not detected) result in this assay. PATIENT NOT FASTINGP ERFORMED BY: NEHA adicate timeads [id number] Fredi DriveRTP [place] [id number] 2018 Novel Coronavirus (COVI D-19), LUKAS (73627)Ordered By: Tax Collection Coordinator on 12-05-2019 2019 Novel Coronavirus (COVID-19), LUKAS (87616) Not Detected Normal [facility] Work Phone: Comment on above: This nucleic acid am plification test was developed and its performancecharacteristics determined by [employer]. Nucleic acidamplification tests include PCR and TMA. This test has not been FDAcleared or approved. This test has been authorized by FDA under anEmergency Use Authorization (EUA). This test is only authorized forthe duration of time the declaration that circumstances existjustifying the authorization of the emergency use of in vitrodiagnostic tests for detection of SARS-CoV-2 virus and/or diagnosisof COVID-19 infection under section 564(b)(1) of the Act, 21 U.S.C.360bbb-3(b) (1), unless the authorization is terminated or revokedsooner.When diagnostic testing is negative, the possibility of a falsenegative result should be considered in the context of a patient'srecent exposures and the presence of clinical signs and symptomsconsistent with COVID-19. An individual without symptoms of COVID-19and who is not shedding SARS-CoV-2 virus would expect to have anegative (not detected) result in this assay. PATIENT NOT FASTINGP ERFORMED BY: [employer] [facility]8211 LM TechnologiesTerre Haute Regional Hospital [place] [id number] Information: NASAL 2019 Novel Coronavirus (COVID-19), LUKAS (93056) Not detected Normal [facility]; [facility] Work Phone: Comment on above: This nucleic acid am plification test was developed and its performancecharacteristics determined by [employer]. Nucleic acidamplification tests include PCR and TMA. This test has not been FDAcleared or approved. This test has been authorized by FDA under anEmergency Use Authorization (EUA). This test is only authorized forthe duration of time the declaration that circumstances existjustifying the authorization of the emergency use of in vitrodiagnostic tests for detection of SARS-CoV-2 virus and/or diagnosisof COVID-19 infection under section 564(b)(1) of the Act, 21 U.S.C.360bbb-3(b) (1), unless the authorization is terminated or revokedsooner.When diagnostic testing is negative, the possibility of a falsenegative result should be considered in the context of a patient'srecent exposures and the presence of clinical signs and symptomsconsistent with COVID-19. An individual without symptoms of COVID-19and who is not shedding SARS-CoV-2 virus would expect to have anegative (not detected) result in this assay. PATIENT NOT FASTINGP ERFORMED BY: [employer] [facility] Hgfgzzoxen5368 [facility] [place] [id number] Information: NASAL POTASSIUM SERUM (08352)Order ed By: Tax Collection Coordinator on 08-27-2019 Potassium [Moles/Vol] 4.7 mmol/L Normal 3.5-5.2 [facility] Internal Medicine Work Phone: Comment on above: today; PATIENT NOT F ASTINGPERFORMED BY: ISHMAEL [employer]70 Orth[employer] KinematicsNovant Health [id number] CBC, Platelets & Auto Diff ( [id number])Ordered By: Tax Collection Coordinator on 08-06-2019 Basophils (Bld) [#/Vol] 0.1 {x10E3/uL} Normal 0.0-0.2 [facility] Internal Medicine Work Phone: Comment on above: PATIENT WAS FASTINGP ERFORMED BY: ISHMAEL [place] [id number] Basophils (Bld) [#/Vol] 0.1 10*3/uL Normal 0.0-0.2 [facility]; [facility] Work Phone: Comment on above: PATIENT WAS FASTINGP ERFORMED BY: DaniloN[facility] Szegqt4069 Uri[address]ui RoadDublin [place] [id number] Basophils/100 WBC (Bld) 1 % Normal [facility] Work Phone: Comment on above: PATIENT WAS FASTINGP ERFORMED BY: [facility] RoadFormerly [facility] Healthin [place] [id number] Eosinophils (Bld) [#/Vol] 0.1 {x10E3/uL} Normal 0.0-0.4 [facility] Work Phone: Comment on above: PATIENT WAS FASTINGP ERFORMED BY: [facility] [facility] [id number] Eosinophils (Bld) [#/Vol] 0.1 10*3/uL Normal 0.0-0.4 [facility]; [facility] Work Phone: Comment on above: PATIENT WAS FASTINGP ERFORMED BY: [facility]iloN[facility] Kxycsc0089 [address] RoadFormerly [facility] Healthin [place] [id number] Eosinophils/100 WBC (Bld) 3 % Normal [facility] Work Phone: Comment on above: PATIENT WAS FASTINGP ERFORMED BY: LabMunson [facility] [facility] [id number] Erythrocyte distribution width (RBC) [Ratio] 12.5 % Normal 11.6-15.4 [facility] Work Phone: Comment on above: PATIENT WAS FASTINGP ERFORMED BY: LabMun[facility] [facility] [id number] Hematocrit (Bld) [Volume fraction] 48.7 % Normal 37.5-51.0 [facility] Work Phone: Comment on above: PATIENT WAS FASTINGP ERFORMED BY: LabSara [place] 8284170 [facility] [id number] Hemoglobin (Bld) [Mass/Vol] 16.7 g/dL Normal 13.0-17.7 [facility] Work Phone: Comment on above: PATIENT WAS FASTINGP ERFORMED BY: ISHMAEL DaniloNortheast [facility] Center Gcifqd1100 [facility] [id number] Immature granulocytes (Bld) [#/Vol] 0.0 {x10E3/uL} Normal 0.0-0.1 [facility] Work Phone: Comment on above: PATIENT WAS FASTINGP ERFORMED BY: ISHMAEL [facility] Ncprgs2775 [facility] [id number] Immature granulocytes (Bld) [#/Vol] 0.0 10*3/uL Normal 0.0-0.1 [facility]; [facility] Work Phone: Comment on above: PATIENT WAS FASTINGP ERFORMED BY: ISHMAEL CarrascoNortheast Regional [facility] Center Phdtkr[address] [id number] Immature granulocytes/100 WBC (Bld) 0 % Normal [facility] Work Phone: Comment on above: PATIENT WAS FASTINGP ERFORMED BY: ISHMAEL CarrascoNerolanda ArmstrongDkfpcg1164 [facility] [id number] Lymphocytes (Bld) [#/Vol] 1.3 {x10E3/uL} Normal 0.7-3.1 [facility] Work Phone: Comment on above: PATIENT WAS FASTINGP ERFORMED BY: [facility] Hwxzkp3992 [facility] [id number] Lymphocytes (Bld) [#/Vol] 1.3 10*3/uL Normal 0.7-3.1 [facility]; [facility] Work Phone: Comment on above: PATIENT WAS FASTINGP ERFORMED BY: ISHMAEL [place] 4544870 [facility] [id number] Lymphocytes/100 WBC (Bld) 26 % Normal [facility] Work Phone: Comment on above: PATIENT WAS FASTINGP ERFORMED BY: ISHMAEL [place] 4544870 [facility] [id number] MCH (RBC) [Entitic mass] 30.8 pg Normal 26.6-33.0 [facility] Work Phone: Comment on above: PATIENT WAS FASTINGP ERFORMED BY: ISHMAEL [facility] Gjtknf8318 [facility] [id number] MCHC (RBC) [Mass/Vol] 34.3 g/dL Normal 31.5-35.7 [facility] Work Phone: Comment on above: PATIENT WAS FASTINGP ERFORMED BY: ISHMAEL [facility]6370 [facility] [id number] MCV (RBC) [Entitic vol] 90 fL Normal 79-97 [facility] Work Phone: Comment on above: PATIENT WAS FASTINGP ERFORMED BY: ISHMAEL [facility] Elkrej1443 [facility] [id number] Monocytes (Bld) [#/Vol] 0.6 {x10E3/uL} Normal 0.1-0.9 [facility] Work Phone: Comment on above: PATIENT WAS FASTINGP ERFORMED BY: ISHMAEL [place] 4544870 [facility] [id number] Monocytes (Bld) [#/Vol] 0.6 10*3/uL Normal 0.1-0.9 [facility]; [facility] Work Phone: Comment on above: PATIENT WAS FASTINGP ERFORMED BY: [facility]6370 [facility] [id number] Monocytes/100 WBC (Bld) 12 % Normal [facility] Work Phone: Comment on above: PATIENT WAS FASTINGP ERFORMED BY: [facility]6370 [facility] [id number] Neutrophils (Bld) [#/Vol] 2.9 {x10E3/uL} Normal 1.4-7.0 [facility] Work Phone: Comment on above: PATIENT WAS FASTINGP ERFORMED BY: [place] 9020170 [address] RoadDublin [place] [id number] Neutrophils (Bld) [#/Vol] 2.9 10*3/uL Normal 1.4-7.0 [facility]; [facility] Work Phone: Comment on above: PATIENT WAS FASTINGP ERFORMED BY: ISHMAEL LabCorolanda Kfggoc0793 [address] RoadDublin [place] [id number] Neutrophils/100 WBC (Bld) 58 % Normal [facility] Work Phone: Comment on above: PATIENT WAS FASTINGP ERFORMED BY: ISHMAEL [facility] Nggtgw6154 [address] RoadDublin [place] [id number] Platelets (Bld) [#/Vol] 260 {x10E3/uL} Normal 150-450 [facility] Internal Medicine Work Phone: Comment on above: PATIENT WAS FASTINGP ERFORMED BY: ISHMAEL LabJazmine ArmstrongFwiseb8863 [address]ui RoadDublin [place] [id number] Platelets (Bld) [#/Vol] 260 10*3/uL Normal 150-450 [facility]; [facility] Work Phone: Comment on above: PATIENT WAS FASTINGP ERFORMED BY: ISHMAEL LabJazmine Unpcsl3275 [address] RoadDublin [place] [id number] RBC (Bld) [#/Vol] 5.43 {x10E6/uL} Normal 4.14-5.80 [facility] Internal Medicine Work Phone: Comment on above: PATIENT WAS FASTINGP ERFORMED BY: ISHMAEL [facility] Nglfoa1335 [address] RoadDublin [place] [id number] RBC (Bld) [#/Vol] 5.43 10*6/uL Normal 4.14-5.80 [facility] Internal Medicine; [facility] Work Phone: Comment on above: PATIENT WAS FASTINGP ERFORMED BY: ISHMAEL LabCorolanda ArmstrongGmehrk5082 [address]ui RoadDublin [place] [id number] WBC (Bld) [#/Vol] 5.0 {x10E3/uL} Normal 3.4-10.8 [facility] Internal Medicine Work Phone: Comment on above: PATIENT WAS FASTINGP ERFORMED BY: ISHMAEL [facility] Zjnjva0011 [address] RoadDublin [place] [id number] WBC (Bld) [#/Vol] 5.0 10*3/uL Normal 3.4-10.8 [facility] Internal Medicine; [facility] Work Phone: Comment on above: PATIENT WAS FASTINGP ERFORMED BY: ISHMAEL [facility] Ncydig1715 [address] RoadDublin [place] [id number] Lipid Panel ([id number])Ordered B y: Tax Collection Coordinator on 08-06-2019 Cholesterol [Mass/Vol] 312 mg/dL Abnormal 100-199 [facility] Work Phone: Comment on above: PATIENT WAS FASTINGP ERFORMED BY: ISHMAEL Armstronglin[address] [facility]in [place] [id number] Cholesterol in HDL [Mass/Vol] 114 mg/dL Normal [facility] Work Phone: Comment on above: PATIENT WAS FASTINGP ERFORMED BY: ISHMAEL LabJazmine ArmstrongCvqdpz9[address] [facility]in [place] [id number] Cholesterol in LDL [Mass/Vol] 179 mg/dL Abnormal 0-99 [facility] Work Phone: Comment on above: PATIENT WAS FASTINGP ERFORMED BY: ISHMAEL Armstronglin6370 [facility] Hospitalin [place] [id number] Cholesterol in LDL/Cholesterol in HDL [Mass ratio] 1.6 {ratio} Normal 0.0-3.6 [facility] Work Phone: Comment on above: LDL/HDL Ratio Men Wo men 1/2 Avg.Risk 1.0 1.5 Avg.Risk 3.6 3.2 2X Avg.Risk 6.2 5.0 3X Avg.Risk 8.0 6.1 PATIENT WAS FASTINGP ERFORMED BY: ISHMAEL LabCorolanda Wvvgwb0735 [address] [facility] HospitalDublin [place] [id number] Cholesterol in VLDL [Mass/Vol] 19 mg/dL Normal 5-40 [facility] Work Phone: Comment on above: PATIENT WAS FASTINGP ERFORMED BY: ISHMAEL LabCo Hnliou4127 [address] RoadDublin [place] [id number] Triglyceride [Mass/Vol] 96 mg/dL Normal 0-149 [facility] Work Phone: Comment on above: PATIENT WAS FASTINGP ERFORMED BY: ISHMAEL LabCorolanda ArmstrongRqbgfr2048 [address] RoadDublin [place] [id number] Metabolic Panel, Comprehensi ve ([id number])Ordered By: Tax Collection Coordinator on 08-06-2019 Albumin [Mass/Vol] 5.3 g/dL Abnormal 3.8-4.8 [facility] Internal Medicine Work Phone: Comment on above: PATIENT WAS FASTINGP ERFORMED BY: ISHMAEL LabJazmine ArmstrongWhwdym8898 [address] Roadblin [place] [id number] Albumin/Globulin [Mass ratio] 1.9 {ratio} Normal 1.2-2.2 [facility] Work Phone: Comment on above: PATIENT WAS FASTINGP ERFORMED BY: ISHMAEL LabNort[facility] Ewedvl0918 [address] Roadblin [place] [id number] ALP [Catalytic activity/Vol] 63 [iU]/L Normal 39-117 [facility] Work Phone: Comment on above: PATIENT WAS FASTINGP ERFORMED BY: ISHMAEL LabJazmine ArmstrongKgozja6426 [address] Roadblin [place] [id number] ALP [Catalytic activity/Vol] 63 U/L Normal 39-117 [facility]; [facility] Work Phone: Comment on above: PATIENT WAS FASTINGP ERFORMED BY: ISHMAEL LabCo Fognzd6016 [address] RoadDublin [place] [id number] ALT [Catalytic activity/Vol] 36 [iU]/L Normal 0-44 [facility] Work Phone: Comment on above: PATIENT WAS FASTINGP ERFORMED BY: ISHMAEL Lab[facility] Zoazpj[address] [facility] Hospitalblin [place] [id number] ALT [Catalytic activity/Vol] 36 U/L Normal 0-44 [facility]; [facility] Work Phone: Comment on above: PATIENT WAS FASTINGP ERFORMED BY: ISHMAEL [facility] Zzeism8586 [address] RoadDublin [place] [id number] AST [Catalytic activity/Vol] 38 [iU]/L Normal 0-40 [facility] Internal Medicine Work Phone: Comment on above: PATIENT WAS FASTINGP ERFORMED BY: CB [facility] Kcwwxs5847 [address] RoadDublin [place] [id number] AST [Catalytic activity/Vol] 38 U/L Normal 0-40 [facility]; [facility] Internal Medicine Work Phone: Comment on above: PATIENT WAS FASTINGP ERFORMED BY: ISHMAEL [facility] Tdypyg8608 [address] RoadDublin [place] [id number] Bilirubin [Mass/Vol] 0.6 mg/dL Normal 0.0-1.2 [facility] Internal [facility] Work Phone: Comment on above: PATIENT WAS FASTINGP ERFORMED BY: ISHMAEL LabCo Wjobpl9357 [address] RoadDublin [place] [id number] Calcium [Mass/Vol] 10.6 mg/dL Abnormal 8.6-10.2 [facility] Internal Medicine Work Phone: Comment on above: PATIENT WAS FASTINGP ERFORMED BY: ISHMAEL LabCo Eiutjw6610 [address] RoadDublin [place] [id number] Chloride [Moles/Vol] 92 mmol/L Abnormal 96-106 [facility] Internal Medicine Work Phone: Comment on above: PATIENT WAS FASTINGP ERFORMED BY: ISHAMEL [facility] Mgvunb6877 [address] RoadDublin [place] [id number] CO2 [Moles/Vol] 21 mmol/L Normal 20-29 [facility] Internal Medicine Work Phone: Comment on above: PATIENT WAS FASTINGP ERFORMED BY: ISHMAEL [facility] Zbbiqd9761 [address] RoadDublin [place] [id number] Creatinine [Mass/Vol] 0.90 mg/dL Normal 0.76-1.27 [facility] Internal Medicine Work Phone: Comment on above: PATIENT WAS FASTINGP ERFORMED BY: CB [facility] Yiiogn2351 [address] RoadDublin [place] [id number] GFR/1.73 sq M predicted among blacks CKD-EPI (S/P/Bld) [Vol rate/Area] 105 mL/min/1.73 Normal [facility] Work Phone: Comment on above: PATIENT WAS FASTINGP ERFORMED BY: [facility] [facility]in [place] [id number] GFR/1.73 sq M predicted among non-blacks CKD-EPI (S/P/Bld) [Vol rate/Area] 91 mL/min/1.73 Normal [facility] Work Phone: Comment on above: PATIENT WAS FASTINGP ERFORMED BY: [place] 9020170 [facility] [id number] Globulin (S) [Mass/Vol] 2.8 g/dL Normal 1.5-4.5 [facility] Internal Medicine Work Phone: Comment on above: PATIENT WAS FASTINGP ERFORMED BY: [place] 9020170 [facility] [id number] Glucose [Mass/Vol] 111 mg/dL Abnormal 65-99 [facility] Internal Medicine Work Phone: Comment on above: PATIENT WAS FASTINGP ERFORMED BY: [place] 9020170 [facility] [id number] Potassium [Moles/Vol] 5.8 mmol/L Abnormal 3.5-5.2 [facility] Work Phone: Comment on above: Client Requested [place] g PATIENT WAS FASTINGP ERFORMED BY: [facility]6370 [facility] [id number] Protein [Mass/Vol] 8.1 g/dL Normal 6.0-8.5 [facility] Internal Medicine Work Phone: Comment on above: PATIENT WAS FASTINGP ERFORMED BY: [facility]6370 [facility] [id number] Sodium [Moles/Vol] 137 mmol/L Normal 134-144 [facility] Internal Medicine Work Phone: Comment on above: PATIENT WAS FASTINGP ERFORMED BY: T[facility] BRAZILMunson Healthcare [facility]6370 [facility] [id number] Urea nitrogen [Mass/Vol] 11 mg/dL Normal 8-27 [facility] Work Phone: Comment on above: PATIENT WAS FASTINGP ERFORMED BY: [facility]6370 [facility] [id number] Urea nitrogen/Creatinine [Mass ratio] 12 mg/mg Normal 10-24 [facility] Work Phone: Comment on above: PATIENT WAS FASTINGP ERFORMED BY: [facility] BRAZILMunson Healthcare [facility]levo[facility] Hospital6370 [facility] [id number] PSA (PROSTATE SPECIFIC ANTIG EN) (V76.44)Ordered By: Tax Collection Coordinator on 08-06-2019 Prostate specific Ag [Mass/Vol] 2.5 ng/mL Normal 0.0-4.0 [facility] Work Phone: Comment on above: [employer] ECLIA methodol ogy. .According to the [place] [employer], Serum PSA shoulddecrease and remain at undetectable levels after radicalprostatectomy. The AUA defines biochemical recurrence as an initialPSA value 0.2 ng/mL or greater followed by a subsequent confirmatoryPSA value 0.2 ng/mL or greater.Values obtained with different assay methods or kits cannot be usedinterchangeably. Results cannot be interpreted as absolute evidenceof the presence or absence of malignant disease. PATIENT WAS FASTINGP ERFORMED BY: [facility] BRAZILMunson Healthcare [facility]le[facility] Hospital6370 [facility] [id number] TSH ([id number])Ordered By: Coveritye m Clinical Resource Nurse on 08-06-2019 TSH Qn 4.380 {uIU/mL} Normal 0.450-4.50 0 [facility] Work Phone: Comment on above: PATIENT WAS FASTINGP ERFORMED BY: [facility] BRAZILMunson Healthcare [facility]6370 [facility] [id number] CBC, Platelets & Auto Diff ( [id number])on 07-31-2017 Basophils #/vol (Bld) 0.1 {x10E3/uL} Normal 0.0-0.2 [facility] Work Phone: Comment on above: PATIENT WAS FASTINGP ERFORMED BY: ISHMAEL [facility] Bbyyxq7963 [address] RoadDublin [place] [id number] Basophils/100 WBC (Bld) 1 % Normal [facility] Work Phone: Comment on above: PATIENT WAS FASTINGP ERFORMED BY: ISHMAEL [facility] Trvmkx9658 [address] RoadDublin [place] [id number] Eosinophils #/vol (Bld) 0.1 {x10E3/uL} Normal 0.0-0.4 [facility] Work Phone: Comment on above: PATIENT WAS FASTINGP ERFORMED BY: LabCo Hywqvx3863 [address] RoadDublin [place] [id number] Eosinophils/100 WBC (Bld) 1 % Normal [facility] Work Phone: Comment on above: PATIENT WAS FASTINGP ERFORMED BY: ISHMAEL [facility] Kddhup3271 [address] RoadFormerly [facility]in [place] [id number] Erythrocyte distribution width Ratio (RBC) 14.2 % Normal 12.3-15.4 [facility] Work Phone: Comment on above: PATIENT WAS FASTINGP ERFORMED BY: ISHMAEL [facility] Iadryh[address] [facility] Hospitalblin [place] [id number] Hematocrit Volume Fraction (Bld) 46.6 % Normal 37.5-51.0 [facility] Work Phone: Comment on above: PATIENT WAS FASTINGP ERFORMED BY: [facility] Pxopzf9905 [address] Roadblin [place] [id number] Hemoglobin mass conc (Bld) 16.0 g/dL Normal 13.0-17.7 [facility] Work Phone: Comment on above: PATIENT WAS FASTINGP ERFORMED BY: [facility] Nfsvwe2000 [address] RoadDublin [place] [id number] Immature granulocytes #/vol (Bld) 0.0 {x10E3/uL} Normal 0.0-0.1 [facility] Work Phone: Comment on above: PATIENT WAS FASTINGP ERFORMED BY: CB [facility] Zatqkq4375 [address] RoadDublin [place] [id number] Immature granulocytes/100 WBC (Bld) 0 % Normal [facility] Work Phone: Comment on above: PATIENT WAS FASTINGP ERFORMED BY: LabCoWeisman Children's Rehabilitation HospitalVygeqv3341 [address] [facility] [id number] Lymphocytes #/vol (Bld) 2.1 {x10E3/uL} Normal 0.7-3.1 [facility] Work Phone: Comment on above: PATIENT WAS FASTINGP ERFORMED BY: LabMunson Healthcare [facility]levoix Hospital6[address] [facility] [id number] Lymphocytes/100 WBC (Bld) 22 % Normal [facility] Work Phone: Comment on above: PATIENT WAS FASTINGP ERFORMED BY: [facility] Xfknuz0087 [facility] [id number] MCH Entitic mass (RBC) 30.7 pg Normal 26.6-33.0 [facility] Work Phone: Comment on above: PATIENT WAS FASTINGP ERFORMED BY: LabNort[facility] Cwyajn3745 [facility] [id number] MCHC mass conc (RBC) 34.3 g/dL Normal 31.5-35.7 Comp uc healthensive Internal Medicine Work Phone: Comment on above: PATIENT WAS FASTINGP ERFORMED BY: LabMunson [facility] Hospital6370 [facility] [id number] MCV Entitic volume (RBC) 89 fL Normal 79-97 [facility] Work Phone: Comment on above: PATIENT WAS FASTINGP ERFORMED BY: LabKansas City Va Medical CenterTqrgdb6730 [address] [facility] [id number] Monocytes #/vol (Bld) 1.0 {x10E3/uL} Abnormal 0.1-0.9 [facility] Work Phone: Comment on above: PATIENT WAS FASTINGP ERFORMED BY: LabKansas City Va Medical CenterWklcai4223 [address] [facility] [id number] Monocytes/100 WBC (Bld) 11 % Normal [facility] Work Phone: Comment on above: PATIENT WAS FASTINGP ERFORMED BY: ISHMAEL LabCorolanda Ytxiqn8930 [address] RoadDublin [place] [id number] Neutrophils #/vol (Bld) 6.1 {x10E3/uL} Normal 1.4-7.0 [facility] Work Phone: Comment on above: PATIENT WAS FASTINGP ERFORMED BY: ISHMAEL [facility] Ebjawg0682 [address] RoadDublin [place] [id number] Neutrophils/100 WBC (Bld) 65 % Normal [facility] Work Phone: Comment on above: PATIENT WAS FASTINGP ERFORMED BY: ISHMAEL LabCorolanda ArmstrongMomngk3917 [address] RoadDublin [place] [id number] Platelets #/vol (Bld) 278 {x10E3/uL} Normal 150-379 [facility] Work Phone: Comment on above: PATIENT WAS FASTINGP ERFORMED BY: ISHMAEL LabCorolanda ArmstrongHiuauq1182 [address] RoadDublin [place] [id number] RBC #/vol (Bld) 5.21 {x10E6/uL} Normal 4.14-5.80 [facility] Internal Medicine Work Phone: Comment on above: PATIENT WAS FASTINGP ERFORMED BY: ISHMAEL LabCorolanda ArmstrongJutvdu2251 [address] RoadDublin [place] [id number] WBC #/vol (Bld) 9.3 {x10E3/uL} Normal 3.4-10.8 [facility] Internal Medicine Work Phone: Comment on above: PATIENT WAS FASTINGP ERFORMED BY: ISHMAEL [facility] Ujhbea7980 [address] RoadDublin [place] [id number] CBC, Platelets & Auto Diff ( [id number])Ordered By: Tax Collection Coordinator on 07-31-2017 Basophils (Bld) [#/Vol] 0.1 10*3/uL Normal 0.0-0.2 [facility]; [facility] Work Phone: Comment on above: PATIENT WAS FASTINGP ERFORMED BY: ISHMAEL [facility] Zvdpig2254 [address] RoadDublin [place] [id number] Eosinophils (Bld) [#/Vol] 0.1 10*3/uL Normal 0.0-0.4 [facility]; [facility] Work Phone: Comment on above: PATIENT WAS FASTINGP ERFORMED BY: ISHMAEL LabCorolanda WhalenOqkyba[address] [facility] [place] [id number] Immature granulocytes (Bld) [#/Vol] 0.0 10*3/uL Normal 0.0-0.1 [facility]; [facility] Work Phone: Comment on above: PATIENT WAS FASTINGP ERFORMED BY: LabCo Upkzmn0824 [address] [facility] [id number] Lymphocytes (Bld) [#/Vol] 2.1 10*3/uL Normal 0.7-3.1 [facility]; [facility] Work Phone: Comment on above: PATIENT WAS FASTINGP ERFORMED BY: [facility]6[address] [facility] [id number] Monocytes (Bld) [#/Vol] 1.0 10*3/uL Abnormal 0.1-0.9 [facility]; [facility] Work Phone: Comment on above: PATIENT WAS FASTINGP ERFORMED BY: LabCo Tjxjih0908 [facility] [id number] Neutrophils (Bld) [#/Vol] 6.1 10*3/uL Normal 1.4-7.0 [facility]; [facility] Work Phone: Comment on above: PATIENT WAS FASTINGP ERFORMED BY: LabCo Rutfnm7029 [address] [facility] [id number] Platelets (Bld) [#/Vol] 278 10*3/uL Normal 150-379 [facility]; [facility] Work Phone: Comment on above: PATIENT WAS FASTINGP ERFORMED BY: LabCo Gbgoeb4357 [address] [facility] [id number] RBC (Bld) [#/Vol] 5.21 10*6/uL Normal 4.14-5.80 Compr ehensive Internal Medicine; [facility] Work Phone: Comment on above: PATIENT WAS FASTINGP ERFORMED BY: ISHMAEL LabTyreserolanda Ghmbfx6111 [address] [facility] [id number] WBC (Bld) [#/Vol] 9.3 10*3/uL Normal 3.4-10.8 Compre [facility]; [facility] Work Phone: Comment on above: PATIENT WAS FASTINGP ERFORMED BY: ISHMAEL LabJazmine ArmstrongTsirqx8439 [facility] [id number] Lipid Panel ([id number])on 2017 Cholesterol in HDL mass conc 87 mg/dL Normal [facility] Work Phone: Comment on above: PATIENT WAS FASTINGP ERFORMED BY: ISHMAEL LabTyreserolanda ArmstrongTjpozn6515 [facility] [id number] Cholesterol in LDL mass conc 128 mg/dL Abnormal 0-99 [facility] Work Phone: Comment on above: PATIENT WAS FASTINGP ERFORMED BY: ISHMAEL LabJazmine Ahetas6726 [facility] [id number] Cholesterol in LDL/Cholesterol in HDL mass ratio 1.5 {ratio} Normal 0.0-3.6 [facility] Work Phone: Comment on above: LDL/HDL Ratio Men Wo men 1/2 Avg.Risk 1.0 1.5 Avg.Risk 3.6 3.2 2X Avg.Risk 6.2 5.0 3X Avg.Risk 8.0 6.1 PATIENT WAS FASTINGP ERFORMED BY: ISHMAEL LabTyreserolanda Eschsk9448 [facility] [id number] Cholesterol in VLDL mass conc 18 mg/dL Normal 5-40 [facility] Work Phone: Comment on above: PATIENT WAS FASTINGP ERFORMED BY: ISHMAEL LabCorolanda Sgxwuo1995 [facility] [id number] Cholesterol mass conc 233 mg/dL Abnormal 100-199 [facility] prehensive Internal Medicine Work Phone: Comment on above: PATIENT WAS FASTINGP ERFORMED BY: ISHMAEL Curt Armstronglin[address] [facility] [id number] Triglyceride mass conc 92 mg/dL Normal 0-149 [facility] Work Phone: Comment on above: PATIENT WAS FASTINGP ERFORMED BY: ISHMAEL Armstronglin6370 [facility] [id number] MICROALBUMINOrdered By: Syst em Clinical Resource Nurse on 07-31-2017 Albumin DL <= 20 mg/L (U) [Mass/Vol] mg/dL Normal [facility]; [facility] Work Phone: Comment on above: PATIENT WAS FASTINGP ERFORMED BY: ISHMAEL Armstronglin6370 [facility] [id number] MICROALBUMINon 07-31-2017 Albumin DL <= 20 mg/L mass conc (U) mg/dL Normal [facility] Work Phone: Comment on above: PATIENT WAS FASTINGP ERFORMED BY: ISHMAEL Whalen6370 [facility] [id number] Albumin/Creatinine mass ratio (U) <19.7 Normal 0.0-30.0 [facility] Work Phone: Comment on above: PATIENT WAS FASTINGP ERFORMED BY: ISHMAEL Whalen6370 [facility] [id number] Creatinine mass conc (U) 15.2 mg/dL Normal [facility] Work Phone: Comment on above: PATIENT WAS FASTINGP ERFORMED BY: ISHMAEL Armstronglin6370 [facility] [id number] Metabolic Panel, Comprehensi ve ([id number])on 07-31-2017 Albumin mass conc 4.7 g/dL Normal 3.6-4.8 Compreh ensive Internal Medicine Work Phone: Comment on above: PATIENT WAS FASTINGP ERFORMED BY: ISHMAEL Armstronglin6370 [facility] [id number] Albumin/Globulin mass ratio 1.7 {ratio} Normal 1.2-2.2 [facility] Work Phone: Comment on above: PATIENT WAS FASTINGP ERFORMED BY: CB [facility] Bwfczo0315 [address] RoadDublin [place] [id number] ALP enzyme act/vol 68 [iU]/L Normal 39-117 [facility] Work Phone: Comment on above: PATIENT WAS FASTINGP ERFORMED BY: [facility] Xczskp5557 [address] RoadDublin [place] [id number] ALT enzyme act/vol 28 [iU]/L Normal 0-44 [facility] Work Phone: Comment on above: PATIENT WAS FASTINGP ERFORMED BY: [facility] Rkwuir4575 [address] RoadDublin [place] [id number] AST enzyme act/vol 29 [iU]/L Normal 0-40 [facility] Work Phone: Comment on above: PATIENT WAS FASTINGP ERFORMED BY: LabCo Godzxy8812 [address] RoadDublin [place] [id number] Bilirubin mass conc 0.4 mg/dL Normal 0.0-1.2 [facility] Phone: Comment on above: PATIENT WAS FASTINGP ERFORMED BY: [facility] Bslkhu2630 [address] RoadDublin [place] [id number] Calcium mass conc 10.0 mg/dL Normal 8.6-10.2 Compreh [facility] Work Phone: Comment on above: PATIENT WAS FASTINGP ERFORMED BY: [facility] Thlcxu1132 [address] RoadDublin [place] [id number] Chloride molar conc 98 mmol/L Normal 96-106 Compr ensive Internal Medicine Work Phone: Comment on above: PATIENT WAS FASTINGP ERFORMED BY: [facility] Lkxthu9609 [address] RoadDublin [place] [id number] CO2 molar conc 25 mmol/L Normal 18-29 Comprehens nuris Internal Medicine Work Phone: Comment on above: PATIENT WAS FASTINGP ERFORMED BY: [facility] Wkyfii7781 [address] RoadDublin [place] [id number] Creatinine mass conc 0.94 mg/dL Normal 0.76-1.27 Comp rehensive Internal Medicine Work Phone: Comment on above: PATIENT WAS FASTINGP ERFORMED BY: LabCo Wzplfd0575 [address] [facility] [place] [id number] GFR/1.73 sq M predicted among blacks CKD-EPI vol rate/area (S/P/Bld) 101 mL/min/1.73 Normal Comprehensiv e Internal Medicine Work Phone: Comment on above: PATIENT WAS FASTINGP ERFORMED BY: Lab[facility] Asyrny2441 [address] [facility] [place] [id number] GFR/1.73 sq M predicted among non-blacks CKD-EPI vol rate/area (S/P/Bld) 87 mL/min/1.73 Normal [facility] Work Phone: Comment on above: PATIENT WAS FASTINGP ERFORMED BY: LabK[facility] CenterUhpocc2599 [facility] [id number] Globulin mass conc (S) 2.8 g/dL Normal 1.5-4.5 [facility] Work Phone: Comment on above: PATIENT WAS FASTINGP ERFORMED BY: LabCo Uuqzxa6175 [address] [facility] [id number] Glucose mass conc 91 mg/dL Normal 65-99 Compreh ensive Internal Medicine Work Phone: Comment on above: PATIENT WAS FASTINGP ERFORMED BY: [facility] Orndbw4934 [facility] [id number] Potassium molar conc 5.7 mmol/L Abnormal 3.5-5.2 Comp rehensive Internal Medicine Work Phone: Comment on above: Client Requested [place] g PATIENT WAS FASTINGP ERFORMED BY: LabCo Pttvpz6709 [address] [facility] [place] [id number] Protein mass conc 7.5 g/dL Normal 6.0-8.5 Compreh ensive Internal Medicine Work Phone: Comment on above: PATIENT WAS FASTINGP ERFORMED BY: Lab[facility] Uvhbpk0532 [address] [facility] [id number] Sodium molar conc 141 mmol/L Normal 134-144 Compreh ensive Internal Medicine Work Phone: Comment on above: PATIENT WAS FASTINGP ERFORMED BY: ISHMAEL [facility] Nqrmis0063 [address] RoadDublin [place] [id number] Urea nitrogen mass conc 13 mg/dL Normal 8-27 [facility] Work Phone: Comment on above: PATIENT WAS FASTINGP ERFORMED BY: CB [facility] Npiczt2490 [address] RoadDublin [place] [id number] Urea nitrogen/Creatinine mass ratio 14 mg/mg Normal 10-24 [facility] Work Phone: Comment on above: PATIENT WAS FASTINGP ERFORMED BY: ISHMAEL [facility] Rfrzzz8660 [address] RoadDublin [place] [id number] Metabolic Panel, Comprehensi ve ([id number])Ordered By: Tax Collection Coordinator on 07-31-2017 ALP [Catalytic activity/Vol] 68 U/L Normal 39-117 [facility]; [facility] Work Phone: Comment on above: PATIENT WAS FASTINGP ERFORMED BY: [facility] Dxvuno2453 [address] RoadDublin [place] [id number] ALT [Catalytic activity/Vol] 28 U/L Normal 0-44 [facility]; [facility] Work Phone: Comment on above: PATIENT WAS FASTINGP ERFORMED BY: [facility] Tnbapo1007 [address] RoadDublin [place] [id number] AST [Catalytic activity/Vol] 29 U/L Normal 0-40 [facility]; [facility] Work Phone: Comment on above: PATIENT WAS FASTINGP ERFORMED BY: CB [facility] Tqnewx3535 [address] RoadDublin [place] [id number] PSA (PROSTATE SPECIFIC ANTIG EN) (V76.44)on 07-31-2017 Prostate specific Ag mass conc 1.4 ng/mL Normal 0.0-4.0 [facility] Work Phone: Comment on above: Scot ECLIA methodol ogy. .According to the [employer], Serum PSA shoulddecrease and remain at undetectable levels after radicalprostatectomy. The AUA defines biochemical recurrence as an initialPSA value 0.2 ng/mL or greater followed by a subsequent confirmatoryPSA value 0.2 ng/mL or greater.Values obtained with different assay methods or kits cannot be usedinterchangeably. Results cannot be interpreted as absolute evidenceof the presence or absence of malignant disease. PATIENT WAS FASTINGP ERFORMED BY: ISHMAEL [facility] Wuvhhp7390 [address] RoadDublin [place] [id number] TSH ([id number])on 07-31-2017 Thyrotropin Qn 3.180 {uIU/mL} Normal 0.450-4.50 0 [facility] Work Phone: Comment on above: PATIENT WAS FASTINGP ERFORMED BY: ISHMAEL [facility] Wieoau3945 [address] RoadDublin [place] [id number] URINALYSIS ([id number])on 018 Appearance Nom (U) Clear Normal Compre hensive Internal Medicine Work Phone: Comment on above: PATIENT WAS FASTINGP ERFORMED BY: ISHMAEL [facility] Sdowfw5336 [address] RoadDublin [place] [id number] Bilirubin Ql (U) Negative Normal Comprehe nsive Internal Medicine Work Phone: Comment on above: PATIENT WAS FASTINGP ERFORMED BY: ISHMAEL [facility] Lzzzrh2089 [address] RoadDublin [place] [id number] Color Nom (U) Yellow Normal Comprehensi ve Internal Medicine Work Phone: Comment on above: PATIENT WAS FASTINGP ERFORMED BY: [facility] Mucmbl5767 [address] RoadDublin [place] [id number] Glucose Ql (U) Negative Normal Comprehens nuris Internal Medicine Work Phone: Comment on above: PATIENT WAS FASTINGP ERFORMED BY: CB [facility] Kiqusw4330 [address] RoadDublin [place] [id number] Hemoglobin Ql (U) Negative Normal Compreh ensive Internal Medicine Work Phone: Comment on above: PATIENT WAS FASTINGP ERFORMED BY: CB [facility] Dxocva0959 [address] RoadDublin [place] [id number] Ketones Ql (U) Negative Normal Comprehens nuris Internal Medicine Work Phone: Comment on above: PATIENT WAS FASTINGP ERFORMED BY: ISHMAEL Whalen6370 [address] [facility]in [place] [id number] Leukocyte esterase Test strip Ql (U) Negative Normal [facility] Work Phone: Comment on above: PATIENT WAS FASTINGP ERFORMED BY: ISHMAEL Whalen6370 [address] [facility]Nov[facility] [id number] Microscopic observation LM Nom (Urine sed) MICNIP Normal [facility] Work Phone: Comment on above: Microscopic not dawna cated and not performed. PATIENT WAS FASTINGP ERFORMED BY: ISHMAEL Whalen6370 [address] [facility] [id number] Nitrite Ql (U) Negative Normal Comprehens nuris Internal Medicine Work Phone: Comment on above: PATIENT WAS FASTINGP ERFORMED BY: ISHMAEL Whalen6370 [facility] [id number] pH (U) 7.0 [pH] Normal 5.0-7.5 [facility] Work Phone: Comment on above: PATIENT WAS FASTINGP ERFORMED BY: ISHMAEL Whalen6370 [address] [facility] [id number] Protein Ql (U) Negative Normal Comprehens nuris Internal Medicine Work Phone: Comment on above: PATIENT WAS FASTINGP ERFORMED BY: ISHMAEL Whalen6370 [facility] [id number] Specific gravity Relative Density (U) 1.006 1 Normal 1.005-1.03 0 [facility] Work Phone: Comment on above: PATIENT WAS FASTINGP ERFORMED BY: ISHMAEL Whalen6370 [address] [facility] [id number] Urobilinogen Test strip mass conc (U) 0.2 mg/dL Normal 0.2-1.0 Comprehensiv e Internal Medicine Work Phone: Comment on above: PATIENT WAS FASTINGP ERFORMED BY: ISHMAEL Whalen6370 [address]Dublin [place] [id number] URINALYSIS ([id number])Ordered By : Tax Collection Coordinator on 07-31-2017 Bilirubin Ql (U) Negative Normal Comprehe nsive Internal Medicine; [facility] Work Phone: Comment on above: PATIENT WAS FASTINGP ERFORMED BY: ISHMAEL [facility] Xmrqgp8980 [address] RoadDublin [place] [id number] Glucose Ql (U) Negative Normal Comprehens nuris [facility] Medicine; [facility] Work Phone: Comment on above: PATIENT WAS FASTINGP ERFORMED BY: ISHMAEL [facility] Enzeab5184 [address] RoadDublin [place] [id number] Hemoglobin Ql (U) Negative Normal Compreh ensive Internal Medicine; [facility] Work Phone: Comment on above: PATIENT WAS FASTINGP ERFORMED BY: ISHMAEL [facility] Ngyxxy1639 [address] RoadDublin [place] [id number] Ketones Ql (U) Negative Normal Comprehens nuris [facility] Medicine; [facility] Work Phone: Comment on above: PATIENT WAS FASTINGP ERFORMED BY: ISHMAEL [facility] Lzndlf7557 [address] RoadDublin [place] [id number] Leukocyte esterase Test strip Ql (U) Negative Normal [facility]; [facility] Work Phone: Comment on above: PATIENT WAS FASTINGP ERFORMED BY: ISHMAEL [facility] Qokerm3980 [address] RoadDublin [place] [id number] Nitrite Ql (U) Negative Normal Comprehens nuris [facility] Medicine; [facility] Work Phone: Comment on above: PATIENT WAS FASTINGP ERFORMED BY: ISHMAEL [facility] Oioyaw2736 [address] RoadDublin [place] [id number] Protein Ql (U) Negative Normal Comprehens nuris [facility] Medicine; [facility] Work Phone: Comment on above: PATIENT WAS FASTINGP ERFORMED BY: ISHMAEL [facility] Kwhyyn2189 [address] RoadDublin [place] [id number] Urobilinogen (U) [Mass/Vol] 0.2 mg/dL Normal 0.2-1.0 [facility]; [facility] Work Phone: Comment on above: PATIENT WAS FASTINGP ERFORMED BY: ISHMAEL [facility]6[address] CrewsFormerly Park Ridge Healthwilmar [place] [id number] Lisseth 06-16-2017 CNOV Office Visit (UCWSTR) AUTUMN ZHANG DD ([id number]) 1955 MDate Time Provider Department06/16/17 10:45 AM MARIS ECKERT (GHASSAN) [facility] During your visit today, we recorded the following information about you: Temperature Pulse Respiration Blood pressure 97.5 degrees 80/minute 16/minute 168/100 Weight 90.4 kgMaris Eckert APRN.CNP 06/16/2017 11:41 AM SignedSubjectiveHPI Maranda Zhang is a 62 year old male who presents with cough, chestcongestion, for the past 4 days. He has had this on and off over the winterwith periods of relapsing/remitting illness. He feels worse this time, can heargurgling in his chest. He has taken mucinex at home.Review of SystemsConstitutional: Negative. Negative for fever.HENT: Positive for congestion. Negative for ear pain and sore throat.Respiratory: Positive for cough and sputum production. Negative for shortnessof breath.Cardiovascular: Positive for chest pain (burning with cough).Gastrointestinal: Negative. Negative for abdominal pain, diarrhea, nausea andvomiting.Musculoskelet al: Positive for myalgias (ANDquot;ache all overANDquot;). BP 168/100 Pulse 80 Temp 36.4 ?C (97.5 ?F) (Tympanic) Resp 16 Wt 90.4kg (199 lb 6.4 oz) SpO2 95%PAST MEDICAL HISTORYDiagnosis Date- Tobacco use disorder age 17PAST SURGICAL HISTORYProcedure Laterality Date- EXTRACTION ERUPTED TOOTH/EXR age early 30's wisdom- PAST SURGICAL HISTORY OF back surgery (L5-S1, for sciatica, Dr. Gabriel)- PAST SURGICAL HISTORY OF and abdominal wall herniation x 2, above umbilicusALLERGIES Review of patient's allergies indicates no known allergies.MEDICATIONShydr oCHLOROthiazide (HYDRODIURIL, ESIDRIX) 25 mg tablet Take 25 mg by mouthonce daily.amLODIPine 10 mg tablet Take 1 tablet by mouth once daily.FAMILY HISTORYProblem Relation Age of Onset- Hypertension Father- Other [Other] [OTHER] Brother ms- Other [Other] [OTHER] Other niece ms- Cancer Father non-small cell lung, only brief smoking hx- Cancer Paternal Uncle type unknown, age 50's- Cancer Paternal Aunt type unknown, age late 50's- Hypertension Mother- Alzheimer's Disease MotherSocial HistorySubstance Use Topics- Smoking status: Former Smoker Packs/day: 1.00 Years: 30.00 Types: Cigarettes- Smokeless tobacco: Former User Quit date: 04/15/2012- Alcohol use 36.0 oz/week Comment: 12 per week, few per dayObjectivePhysical ExamConstitutional: He is well-developed, well-nourished, and in no distress.HENT:Head: Normocephalic.Right Ear: Tympanic membrane, external ear and ear canal normal.Left Ear: Tympanic membrane, external ear and ear canal normal.Nose: Nose normal. No rhinorrhea.Mouth/Throat: Uvula is midline, oropharynx is clear and moist and mucousmembranes are normal. Mucous membranes are not pale, not dry and not cyanotic.No posterior oropharyngeal edema or posterior oropharyngeal erythema.Eyes: Conjunctivae are normal. Right eye exhibits no discharge. Left eyeexhibits no discharge.Neck: Neck supple.Cardiovascular: Normal rate and regular rhythm.Pulmonary/Chest: Effort normal. No respiratory distress. He has wheezes in theright upper field, the right middle field, the left upper field and the leftmiddle field. He has rales in the right lower field and the left lower field.SpO2 95%Post albuterol: Lungs with scattered wheezes and SpO2 95%Lymphadenopathy: He has no cervical adenopathy.Neurological: He is alert.Skin: Skin is warm and dry. No rash noted.Nursing note and vitals reviewed. ASSESSMENT/PLAN:1. Wheezing - ICD9: 786.07, ICD10: R06.2 (primary diagnosis)- ALBUTEROL SULFATE CONCENTRATE 5 MG/ML(0.5 %) SOLUTION FOR NEBULIZATION2. Acute bronchitis, unspecified organism - ICD9: 466.0, ICD10: J20.9- AZITHROMYCIN 250 MG TABLET- PREDNISONE 10 MG TABLET- ALBUTEROL SULFATE HFA 90 MCG/ACTUATION AEROSOL INHALER- Follow-up with your PCP in 3-5 days if symptoms have not improved or soonerif symptoms worsen- Discussed red flags and need for immediate medical evaluation if any occur.- Discussed supportive care treatment with fluids, rest and analgesia.- Discussed expected course of illnessMaris Eckert APRN.Lady Chang Ma 06/16/2017 11:34 AM Signed2.5 solution aerosol treatment given per doctor's orders. Prior to treatment O2 Sat is 95%. Treatment completed. O2 sat is 95%. Tolerated well.Maris Eckert APRN.CNP 06/16/2017 11:37 AM SignedTake medications as prescribed. If not improving in 3-5 days, or you haveworsening symptoms, see your primary care provider for recheck.ACUTE BRONCHITIS:You have acute bronchitis. This means the airway passages in your lungs areinflamed. Bronchitis may be caused by viruses or bacteria. Inhaling cigarettesmoke will always make it worse. Exposure to irritating chemicals or secondhand smoke as well as allergies can contribute to bronchitis. Repeat episodesof bronchitis may cause lifelong lung problems.Acute bronchitis is usually treated with rest, fluids, cough medicine, andpossibly antibiotics or inhaled medicine to open up the small airways. It isvery important that you avoid smoke and drink increased amounts of fluids. Acool air vaporizer can help thin bronchial secretions. This makes it easier tocough and clear your chest. If you are a cigarette smoker, consider usingnicotine gum or skin patches to help you withdraw.Recovery from bronchitis is often slow, but you should start feeling betterafter 2-3 days of treatment. Please call your doctor or return here if youhave any of the following symptoms: - Increased fever, chills, or chest pain. - Severe shortness of breath or bloody sputum. - Do not improve after 3 days of proper treatment.Liliya Lowry [place] 06/16/2017 11:49 AM Signed2.5 solution aerosol treatment given per doctor's orders. Prior to treatment O2 Sat is 95%. Tolerated well.Referring Provider: SELF [[id number]]Allergies As of Date: 06/16/2017(No Known Allergies)Date Reviewed: 06/16/2017Reviewed by: Maris Herron) Babar Anaya AssessedReason for Visit: cough and chest congestion [Other] Cmt: x 4 daysPrimary Visit Diagnosis:Wheezing [R06.2] Other Visit Diagnosis:Acute bronchitis, unspecified organism [J20.9]Order(s):albuterol (PROVENTIL) 5 mg/mL nebuInhale 0.5 mL as instructed one time only for 1 dose. 1 DOSE NOW - BACK OFFICE. PLACE 0.5 ML PER DROPPER AND 2.5 ML OF NORMAL SALINE INTO RESERVOIR.Disp: 1 mLRfl: 0 azithromycin (ZITHROMAX) 250 mg tabletTake 2 tablets today then one tablet daily for 4 days.Disp: 1 PackageRfl: 0 predniSONE (DELTASONE) 10 mg tabletTake 4 tabs daily for 3 days, then 2 tabs daily for 3 days, then 1 tab daily for 3 days with food.Disp: 21 tabletRfl: 0 albuterol HFA (VENTOLIN HFA) 90 mcg/actuation inhalerInhale 2 Puffs as instructed every 4 hours as needed for Wheezing/Shortness of Breath.Disp: 1 InhalerRfl: 0Prescriptions as of 06/16/2017 Sig: HYDROCHLOROTHIAZIDE 25 MG TAB* Take 25 mg by mouth once nguyễn* AMLODIPINE 10 MG TABLET Take 1 tablet by mouth once d* ALBUTEROL SULFATE CONCENTRATE* Inhale 0.5 mL as instructed o* AZITHROMYCIN 250 MG TABLET Take 2 tablets today then one* PREDNISONE 10 MG TABLET Take 4 tabs daily for 3 days,* ALBUTEROL SULFATE HFA 90 MCG/* Inhale 2 Puffs as instructed *Problem List As Of Date 06/16/2017 Noted Resolved TOBACCO USE DISORDER [F17.200] Hypertension [I10] INVALID FOR* Other instructions from your clinician: Take medications as prescribed. If not improving in 3-5 days, or you have worsening symptoms, see your primary care provider for recheck. ACUTE BRONCHITIS: You have acute bronchitis. This means the airway passages in your lungs are inflamed. Bronchitis may be caused by viruses or bacteria. Inhaling cigarette smoke will always make it worse. Exposure to irritating chemicals or second hand smoke as well as allergies can contribute to bronchitis. Repeat episodes of bronchitis may cause lifelong lung problems. Acute bronchitis is usually treated with rest, fluids, cough medicine, and possibly antibiotics or inhaled medicine to open up the small airways. It is very important that you avoid smoke and drink increased amounts of fluids. A cool air vaporizer can help thin bronchial secretions. This makes it easier to cough and clear your chest. If you are a cigarette smoker, consider using nicotine gum or skin patches to help you withdraw. Recovery from bronchitis is often slow, but you should start feeling better after 2-3 days of treatment. Please call your doctor or return here if you have any of the following symptoms: - Increased fever, chills, or chest pain. - Severe shortness of breath or bloody sputum. - Do not improve after 3 days of proper treatment.Visit Notes:>> Ebony Chang Ma MonJun 16, 2017 11:31 AM Status: Signed2.5 solution aerosol treatment given per doctor's orders. Prior totreatment O2 Sat is 95%. Treatment completed. O2 sat is 95%. Toleratedwell.>> Liliya Lowry LPN MonJun 16, 2017 11:48 AM Status: Signed2.5 solution aerosol treatment given per doctor's orders. Prior totreatment O2 Sat is 95%. Tolerated well.Prescriptions ordered this encounter Disp Refills Start End ALBUTEROL SULFATE CONCENTRATE 5 MG/M* 1 mL 0 06/16/2017 06/16/2017 Class: In Office Route: INHALATION Sig: Inhale 0.5 mL as instructed one time only for 1 dose. 1 DOSE NOW - BACK OFFICE. PLACE 0.5 ML PER DROPPER AND 2.5 ML OF NORMAL SALINE INTO RESERVOIR. AZITHROMYCIN 250 MG TABLET 1 Pa* 0 06/16/2017 Sig: Take 2 tablets today then one tablet daily for 4 days. PREDNISONE 10 MG TABLET 21 t* 0 06/16/2017 06/25/2017 Sig: Take 4 tabs daily for 3 days, then 2 tabs daily for 3 days, then 1 tab daily for 3 days with food. ALBUTEROL SULFATE HFA 90 MCG/ACTUATI* 1 In* 0 06/16/2017 Route: INHALATION Sig: Inhale 2 Puffs as instructed every 4 hours as needed for Wheezing/Shortness of Breath.Letter Renan Eckert APRN.[facility] Urgent [id number] [facility] [id number]: [phone] [id number] [facility] [id number] Whom it May Concern:This is to certify that Maranda Zhang was seen at our office for medicalcare. Maranda may return to work on 06/19/2017.If you have any questions please feel free to call.Sincerely:Maris Eckert APRN.[facility]ITALEncounter Number: [id number] Status:Closed by MARIS ECKERT on 06/16/17 [facility] PROGRESSon 06-16-2017 PROGRESS HNO ID: [id number] thor: Maris (School Office Assistant) BabarService: (none)Author Type: Nurse PractitionerType: Progress NotesFiled: 06/16/2017 11:41 AMNote Text:SubjectiveHPI Maranda Zhang is a 62 year old male who presents with cough, chestcongestion, for the past 4 days. He has had this on and off over thewinter with periods of relapsing/remitting illness. He feels worse thistime, can hear gurgling in his chest. He has taken mucinex at home.Review of SystemsConstitutional: Negative. Negative for fever.HENT: Positive for congestion. Negative for ear pain and sore throat.Respiratory: Positive for cough and sputum production. Negative forshortness of breath.Cardiovascular: Positive for chest pain (burning with cough).Gastrointestinal: Negative. Negative for abdominal pain, diarrhea, nauseaand vomiting.Musculoskeletal: Positive for myalgias ("ache all over"). BP 168/100 Pulse 80 Temp 36.4 ?C (97.5 ?F) (Tympanic) Resp 16 Wt90.4 kg (199 lb 6.4 oz) SpO2 95%PAST MEDICAL HISTORYDiagnosis Date- Tobacco use disorder age 17PAST SURGICAL HISTORYProcedure Laterality Date- EXTRACTION ERUPTED TOOTH/EXR age early 30's wisdom- PAST SURGICAL HISTORY OF back surgery (L5-S1, for sciatica, Dr. Gabriel)- PAST SURGICAL HISTORY OF and abdominal wall herniation x 2, above umbilicusALLERGIES Review of patient's allergies indicates no known allergies.MEDICATIONShydr oCHLOROthiazide (HYDRODIURIL, ESIDRIX) 25 mg tablet Take 25 mg bymouth once daily.amLODIPine 10 mg tablet Take 1 tablet by mouth once daily.FAMILY HISTORYProblem Relation Age of Onset- Hypertension Father- Other [Other] [OTHER] Brother ms- Other [Other] [OTHER] Other niece ms- Cancer Father non-small cell lung, only brief smoking hx- Cancer Paternal Uncle type unknown, age 50's- Cancer Paternal Aunt type unknown, age late 50's- Hypertension Mother- Alzheimer's Disease MotherSocial HistorySubstance Use Topics- Smoking status: Former Smoker Packs/day: 1.00 Years: 30.00 Types: Cigarettes- Smokeless tobacco: Former User Quit date: 04/15/2012- Alcohol use 36.0 oz/week Comment: 12 per week, few per dayObjectivePhysical ExamConstitutional: He is well-developed, well-nourished, and in no distress.HENT:Head: Normocephalic.Right Ear: Tympanic membrane, external ear and ear canal normal.Left Ear: Tympanic membrane, external ear and ear canal normal.Nose: Nose normal. No rhinorrhea.Mouth/Throat: Uvula is midline, oropharynx is clear and moist and mucousmembranes are normal. Mucous membranes are not pale, not dry and notcyanotic. No posterior oropharyngeal edema or posterior oropharyngealerythema.Eye s: Conjunctivae are normal. Right eye exhibits no discharge. Left eyeexhibits no discharge.Neck: Neck supple.Cardiovascular: Normal rate and regular rhythm.Pulmonary/Chest: Effort normal. No respiratory distress. He has wheezes inthe right upper field, the right middle field, the left upper field andthe left middle field. He has rales in the right lower field and the leftlower field.SpO2 95%Post albuterol: Lungs with scattered wheezes and SpO2 95%Lymphadenopathy: He has no cervical adenopathy.Neurological: He is alert.Skin: Skin is warm and dry. No rash noted.Nursing note and vitals reviewed. ASSESSMENT/PLAN:1. Wheezing - ICD9: 786.07, ICD10: R06.2 (primary diagnosis)- ALBUTEROL SULFATE CONCENTRATE 5 MG/ML(0.5 %) SOLUTION FOR NEBULIZATION2. Acute bronchitis, unspecified organism - ICD9: 466.0, ICD10: J20.9- AZITHROMYCIN 250 MG TABLET- PREDNISONE 10 MG TABLET- ALBUTEROL SULFATE HFA 90 MCG/ACTUATION AEROSOL INHALER- Follow-up with your PCP in 3-5 days if symptoms have not improved orsooner if symptoms worsen- Discussed red flags and need for immediate medical evaluation if anyoccur.- Discussed supportive care treatment with fluids, rest and analgesia.- Discussed expected course of illnessMaris Eckert APRN.[facility] Vital Signs Date Time Vital Sign Value Performing Clinician Facility 09-16-2024 13:54-0400 Body temperature 97.6 [degF] Dr. Diana Randall DO Work Phone: [facility] 09-16-2024 13:54-0400 Diastolic blood pressure 73 mm[Hg] Dr. Diana Randall DO Work Phone: [facility] 09-16-2024 13:54-0400 Heart rate 72 /min Dr. Diana Randall DO Work Phone: [facility] 09-16-2024 13:54-0400 Respiratory rate 18 /min Dr. Diana Randall DO Work Phone: [facility] 09-16-2024 13:54-0400 SaO2% (BldA) [Mass fraction] 100 % Dr. Diana Randall DO Work Phone: [facility] 09-16-2024 13:54-0400 Systolic blood pressure 174 mm[Hg] Dr. Diana Randall DO Work Phone: [facility] 09-16-2024 11:11-0400 Body height 172.[address] Diana Randall DO Work Phone: [facility] 09-16-2024 11:11-0400 Body mass index (BMI) [Ratio] 30.9 kg/m2 Dr. Diana Randall DO Work Phone: [facility] 09-16-2024 11:11-0400 Body weight 92.[address] Diana Randall DO Work Phone: [facility] 06-25-2024 08:03-0400 Body height 172.[address] Diana Randall DO Work Phone: [facility] 06-25-2024 08:03-0400 Body mass index (BMI) [Ratio] 30.7 kg/m2 Dr. Diana Randall DO Work Phone: [facility] 06-25-2024 08:03-0400 Body weight 91.[address] Diana Randall DO Work Phone: [facility] 06-25-2024 08:03-0400 Diastolic blood pressure 75 mm[Hg] Dr. Diana Randall DO Work Phone: [facility] 06-25-2024 08:03-0400 Heart rate 72 /min Dr. Diana Randall DO Work Phone: [facility] 06-25-2024 08:03-0400 Respiratory rate 18 /min Dr. Diana Randall DO Work Phone: [facility] 06-25-2024 08:03-0400 SaO2% (BldA) [Mass fraction] 96 % Dr. Diana Randall DO Work Phone: [facility] 06-25-2024 08:03-0400 Systolic blood pressure 135 mm[Hg] Dr. Diana Randall DO Work Phone: [facility] 11-24-2022 11:52-0400 Body height 175.26 cm LIDA Nelson LPN [facility] Work Phone: 11-24-2022 11:52-0400 Body mass index (BMI) [Ratio] 28.35 kg/m2 LIDA Nelson LPN [facility]; [facility] Work Phone: 11-24-2022 11:52-0400 Body surface area Derived from formula 2.03 m2 LIDA Nelson [place] [facility]; [facility] Work Phone: 11-24-2022 11:52-0400 Body temperature 97.4 [degF] LIDA Nelson LPN [facility] Work Phone: Comment on above: Method: Temporal 11-24-2022 11:52-0400 Body weight 87.09 kg LIDA Omar HERMOSILLO [facility]; [facility] Work Phone: 11-24-2022 11:52-0400 Diastolic blood pressure 76 mm[Hg] LIDA Nelson [place] [facility]; [facility] Work Phone: Comment on above: Patient Position: Sitting; Cuff Location : Left Arm; Cuff Size: Standard 11-24-2022 11:52-0400 Heart rate 84 /min LIDA Omar HERMOSILLO [facility]; [facility] Work Phone: Comment on above: Pattern: Regular 11-24-2022 11:52-0400 Respiratory rate 18 /min LIDA Nelson LPN [facility] Work Phone: Comment on above: Pattern: Unlabored 11-24-2022 11:52-0400 SaO2% (BldA) [Mass fraction] 97 % LIDA Nelson [place] [facility]; [facility] Work Phone: Comment on above: Room air 11-24-2022 11:52-0400 Systolic blood pressure 122 mm[Hg] LIDAMAGDI Nelson LPN [facility]; [facility] Work Phone: Comment on above: Patient Position: Sitting; Cuff Location : Left Arm; Cuff Size: Standard 11-07-2022 12:00-0400 Body height 172.[address] Diana Randall Work Phone: [facility] 11-07-2022 12:00-0400 Body mass index (BMI) [Ratio] 29.7 kg/m2 Dr. Diana Randall Work Phone: [facility] 11-07-2022 12:00-0400 Body temperature 98.6 [degF] Dr. Diana Randall Work Phone: [facility] 11-07-2022 12:00-0400 Body weight 88.[address] Diana Randall Work Phone: [facility] 11-07-2022 12:00-0400 Diastolic blood pressure 77 mm[Hg] Dr. Diana Randall Work Phone: [facility] 11-07-2022 12:00-0400 Heart rate 69 /min Dr. Diana Randall Work Phone: [facility] 11-07-2022 12:00-0400 Respiratory rate 16 /min Dr. Diana Randall Work Phone: [facility] 11-07-2022 12:00-0400 SaO2% (BldA) [Mass fraction] 98 % Dr. Diana Randall Work Phone: [facility] 11-07-2022 12:00-0400 Systolic blood pressure 126 mm[Hg] Dr. Diana Randall Work Phone: [facility] 10-14-2022 11:02-0400 Body height 175.26 cm Nicole Whalen [facility] Work Phone: 10-14-2022 11:02-0400 Body mass index (BMI) [Ratio] 29.11 kg/m2 Nicole Whalen [facility] Work Phone: 10-14-2022 11:02-0400 Body surface area Derived from formula 2.05 m2 Nicole Whalen [facility] Work Phone: 10-14-2022 11:02-0400 Body temperature 97.9 [degF] Nicole Whalen [facility]; [facility] Work Phone: Comment on above: Method: Thermal Scan 10-14-2022 11:02-0400 Body weight 89.42 kg Nicole Whalen [facility] Work Phone: 10-14-2022 11:02-0400 Diastolic blood pressure 74 mm[Hg] Nicole Whalen [facility]; [facility] Work Phone: Comment on above: Patient Position: Sitting; Cuff Location : Left Arm; Cuff Size: Standard 10-14-2022 11:02-0400 Heart rate 67 /min Nicole Whalen [facility]; [facility] Work Phone: Comment on above: Pattern: Regular 10-14-2022 11:02-0400 Respiratory rate 16 /min Nicole Whalen [facility] Work Phone: Comment on above: Pattern: Unlabored 10-14-2022 11:02-0400 Systolic blood pressure 120 mm[Hg] Nicole Whalen [facility] Work Phone: Comment on above: Patient Position: Sitting; Cuff Location : Left Arm; Cuff Size: Standard 09-26-2022 11:46-0400 Body height 175.26 cm [facility]; [facility] Work Phone: 09-26-2022 11:46-0400 Body mass index (BMI) [Ratio] 29.11 kg/m2 [facility] Work Phone: 09-26-2022 11:46-0400 Body surface area Derived from formula 2.05 m2 [facility]; [facility] Work Phone: 09-26-2022 11:46-0400 Body temperature 97.3 [degF] [facility] Work Phone: 09-26-2022 11:46-0400 Body weight 89.42 kg [facility] Work Phone: 09-26-2022 11:46-0400 Diastolic blood pressure 70 mm[Hg] [facility]; [facility] Work Phone: Comment on above: Patient Position: Sitting; Cuff Location : Left Arm; Cuff Size: Standard 09-26-2022 11:46-0400 Heart rate 76 /min [facility] Work Phone: Comment on above: Pattern: Regular 09-26-2022 11:46-0400 Respiratory rate 18 /min [facility]; [facility] Work Phone: Comment on above: Pattern: Unlabored 09-26-2022 11:46-0400 SaO2% (BldA) [Mass fraction] 97 % [facility]; [facility] Work Phone: Comment on above: Room air 09-26-2022 11:46-0400 Systolic blood pressure 124 mm[Hg] [facility]; [facility] Work Phone: Comment on above: Patient Position: Sitting; Cuff Location : Left Arm; Cuff Size: Standard 09-15-2022 12:08-0400 Body height 175.26 cm Susan Louis MA [facility]; [facility] Work Phone: 09-15-2022 12:08-0400 Body mass index (BMI) [Ratio] 29.39 kg/m2 Susan Louis MA [facility]; [facility] Work Phone: 09-15-2022 12:08-0400 Body surface area Derived from formula 2.06 m2 Susan Louis MA [facility]; [facility] Work Phone: 09-15-2022 12:08-0400 Body weight 90.27 kg Susan Louis MA [facility]; [facility] Work Phone: 09-15-2022 12:08-0400 Diastolic blood pressure 80 mm[Hg] Susan Louis MA [facility]; [facility] Work Phone: Comment on above: Patient Position: Sitting; Cuff Location : Left Arm; Cuff Size: Standard 09-15-2022 12:08-0400 Systolic blood pressure 142 mm[Hg] Susan Louis MA [facility]; [facility] Work Phone: Comment on above: Patient Position: Sitting; Cuff Location : Left Arm; Cuff Size: Standard 09-15-2022 11:29-0400 Body mass index (BMI) [Ratio] 30.2 kg/m2 Dr. Diana Randall Work Phone: [facility] 09-15-2022 11:29-0400 Body temperature 98 [degF] Dr. Diana Randall Work Phone: [facility] 09-15-2022 11:29-0400 Body weight 90.[address] Diana Randall Work Phone: [facility] 09-15-2022 11:29-0400 Diastolic blood pressure 80 mm[Hg] Dr. Diana Randall Work Phone: [facility] 09-15-2022 11:29-0400 Heart rate 87 /min Dr. Diana Randall Work Phone: [facility] 09-15-2022 11:29-0400 Respiratory rate 16 /min Dr. Diana Randall Work Phone: [facility] 09-15-2022 11:29-0400 SaO2% (BldA) [Mass fraction] 96 % Dr. Diana Randall Work Phone: [facility] 09-15-2022 11:29-0400 Systolic blood pressure 150 mm[Hg] Dr. Diana Randall Work Phone: [facility] 06-13-2022 11:55-0400 Body height 175.26 cm [facility] Work Phone: 06-13-2022 11:55-0400 Body mass index (BMI) [Ratio] 29.39 kg/m2 [facility]; [facility] Work Phone: 06-13-2022 11:55-0400 Body surface area Derived from formula 2.06 m2 Nicole Whalen [facility]; [facility] Work Phone: 06-13-2022 11:55-0400 Body temperature 98.8 [degF] Nicole Whalen [facility]; [facility] Work Phone: Comment on above: Method: Thermal Scan 06-13-2022 11:55-0400 Body weight 90.27 kg Nicole Whalen [facility] Work Phone: 06-13-2022 11:55-0400 Diastolic blood pressure 74 mm[Hg] Nicole Whalen [facility]; [facility] Work Phone: Comment on above: Patient Position: Sitting; Cuff Location : Left Arm; Cuff Size: Standard 06-13-2022 11:55-0400 Heart rate 70 /min Nicole Whalen [facility]; [facility] Work Phone: Comment on above: Pattern: Regular 06-13-2022 11:55-0400 Respiratory rate 16 /min Nicole Whalen [facility]; [facility] Work Phone: Comment on above: Pattern: Unlabored 06-13-2022 11:55-0400 SaO2% (BldA) [Mass fraction] 97 % Nicole Whalen [facility]; [facility] Work Phone: Comment on above: Room air 06-13-2022 11:55-0400 Systolic blood pressure 132 mm[Hg] Nicole Whalen [facility]; [facility] Work Phone: Comment on above: Patient Position: Sitting; Cuff Location : Left Arm; Cuff Size: Standard 06-06-2022 09:57-0400 Body height 175.26 cm Yana Reyes LPN [facility]; [facility] Work Phone: 06-06-2022 09:57-0400 Body mass index (BMI) [Ratio] 29.39 kg/m2 Yana Slarb [employer] [facility]; [facility] Work Phone: 06-06-2022 09:57-0400 Body surface area Derived from formula 2.06 m2 Yana Slarb [employer] [facility]; [facility] Work Phone: 06-06-2022 09:57-0400 Body temperature 97.9 [degF] Yana Slarb [employer] [facility]; [facility] Work Phone: Comment on above: Method: Temporal 06-06-2022 09:57-0400 Body weight 90.27 kg Yana Slarb [employer] [facility]; [facility] Work Phone: 06-06-2022 09:57-0400 Diastolic blood pressure 88 mm[Hg] Yana Slarb [employer] [facility]; [facility] Work Phone: Comment on above: Patient Position: Sitting; Cuff Location : Left Arm; Cuff Size: Standard 06-06-2022 09:57-0400 Heart rate 73 /min Yana Lucindarb [employer] [facility]; [facility] Work Phone: Comment on above: Pattern: Regular 06-06-2022 09:57-0400 Respiratory rate 18 /min Yana Slarb [employer] [facility]; [facility] Work Phone: Comment on above: Pattern: Unlabored 06-06-2022 09:57-0400 SaO2% (BldA) [Mass fraction] 95 % Yana Slarb [employer] [facility]; [facility] Work Phone: Comment on above: Room air 06-06-2022 09:57-0400 Systolic blood pressure 152 mm[Hg] Yana Slarb [employer] [facility]; [facility] Work Phone: Comment on above: Patient Position: Sitting; Cuff Location : Left Arm; Cuff Size: Standard 05-13-2022 08:22-0500 Body height 175.26 cm Diana Tonia DO Work Phone: [facility]; [facility] Work Phone: 05-13-2022 08:22-0500 Body mass index (BMI) [Ratio] 29.39 kg/m2 Diana Tonia DO Work Phone: [facility]; [facility] Work Phone: 05-13-2022 08:22-0500 Body surface area Derived from formula 2.06 m2 Diana Tonia DO Work Phone: [facility]; [facility] Work Phone: 05-13-2022 08:22-0500 Body weight 90.27 kg Diana Tonia DO Work Phone: [facility]; [facility] Work Phone: 05-13-2022 08:22-0500 Diastolic blood pressure 70 mm[Hg] Diana Tonia DO Work Phone: [facility]; [facility] Work Phone: Comment on above: Patient Position: Sitting 05-13-2022 08:22-0500 Heart rate 80 /min Diana Tonia DO Work Phone: [facility]; [facility] Work Phone: Comment on above: Pattern: Regular 05-13-2022 08:22-0500 Systolic blood pressure 120 mm[Hg] Diana Chenon DO Work Phone: [facility]; [facility] Work Phone: Comment on above: Patient Position: Sitting 03-28-2022 13:41-0500 Body height 175.26 cm [facility]; [facility] Work Phone: 03-28-2022 13:41-0500 Body mass index (BMI) [Ratio] 29.42 kg/m2 [facility]; [facility] Work Phone: 03-28-2022 13:41-0500 Body surface area Derived from formula 2.06 m2 [facility]; [facility] Work Phone: 03-28-2022 13:41-0500 Body temperature 96.5 [degF] Shanon Coppola [facility] Work Phone: 03-28-2022 13:41-0500 Body weight 90.38 kg Shanon Coppola [facility]; [facility] Work Phone: 03-28-2022 13:41-0500 Diastolic blood pressure 70 mm[Hg] Shanon Coppola [facility]; [facility] Work Phone: Comment on above: Patient Position: Sitting; Cuff Location : Left Arm; Cuff Size: Standard 03-28-2022 13:41-0500 Heart rate 83 /min Shanon Coppola [facility]; [facility] Work Phone: Comment on above: Pattern: Regular 03-28-2022 13:41-0500 Respiratory rate 16 /min Shanon Coppola [facility]; [facility] Work Phone: Comment on above: Pattern: Unlabored 03-28-2022 13:41-0500 SaO2% (BldA) [Mass fraction] 96 % Shanon Coppola [facility]; [facility] Work Phone: Comment on above: Room air 03-28-2022 13:41-0500 Systolic blood pressure 122 mm[Hg] Shanon Coppola [facility]; [facility] Work Phone: Comment on above: Patient Position: Sitting; Cuff Location : Left Arm; Cuff Size: Standard 03-08-2022 13:53-0500 Diastolic blood pressure 80 mm[Hg] Shanon Coppola [facility]; [facility] Work Phone: Comment on above: Patient Position: Sitting; Cuff Location : Left Arm; Cuff Size: Standard 03-08-2022 13:53-0500 Systolic blood pressure 132 mm[Hg] Shanon Coppola [facility]; [facility] Work Phone: Comment on above: Patient Position: Sitting; Cuff Location : Left Arm; Cuff Size: Standard 10-13-2021 12:05-0400 Body height 175.26 cm Yana Reyes [employer] [facility]; [facility] Work Phone: 10-13-2021 12:05-0400 Body mass index (BMI) [Ratio] 28.35 kg/m2 Yana Janerb [employer] Work Phone: 10-13-2021 12:05-0400 Body surface area Derived from formula 2.03 m2 Yana Janerb [employer] [employer] Work Phone: 10-13-2021 12:05-0400 Body temperature 97.1 [degF] Yana Slarb [employer] [employer] Work Phone: 10-13-2021 12:05-0400 Body weight 87.09 kg Yana Janerb [employer] Work Phone: 10-13-2021 12:05-0400 Diastolic blood pressure 68 mm[Hg] Yana Slarb [employer] [employer] Work Phone: Comment on above: Patient Position: Sitting; Cuff Location : Left Arm; Cuff Size: Standard 10-13-2021 12:05-0400 Heart rate 70 /min Yana Janerb [employer] Work Phone: Comment on above: Pattern: Regular 10-13-2021 12:05-0400 Respiratory rate 16 /min Yana Janerb [employer] Work Phone: Comment on above: Pattern: Unlabored 10-13-2021 12:05-0400 SaO2% (BldA) [Mass fraction] 97 % Yana Slarb [employer] Work Phone: Comment on above: Room air 10-13-2021 12:05-0400 Systolic blood pressure 108 mm[Hg] Yana Lucindarb [employer] Work Phone: Comment on above: Patient Position: Sitting; Cuff Location : Left Arm; Cuff Size: Standard 09-01-2021 11:02-0400 Body height 175.26 cm Nella Dwaineius [facility] Work Phone: 09-01-2021 11:02-0400 Body mass index (BMI) [Ratio] 28.35 kg/m2 Nella Gravius [facility] Work Phone: 09-01-2021 11:02-0400 Body surface area Derived from formula 2.03 m2 Nella Isidroius [facility] Work Phone: 09-01-2021 11:02-0400 Body weight 87.09 kg Nella Jama [facility] Work Phone: 05-05-2021 08:19-0500 Body height 175.26 cm Diana Tonia DO Work Phone: [facility]; [facility] Work Phone: Comment on above: partial vs per patient 05-05-2021 08:19-0500 Body mass index (BMI) [Ratio] 28.35 kg/m2 Diana Tonia DO Work Phone: [facility]; [facility] Work Phone: Comment on above: partial vs per patient 05-05-2021 08:19-0500 Body surface area Derived from formula 2.03 m2 Diana Tonia DO Work Phone: [facility]; [facility] Work Phone: Comment on above: partial vs per patient 05-05-2021 08:19-0500 Body weight 87.09 kg Diana Tonia DO Work Phone: [facility]; [facility] Work Phone: Comment on above: partial vs per patient 05-05-2021 08:19-0500 Diastolic blood pressure 98 mm[Hg] Diana Tonia DO Work Phone: [facility]; [facility] Work Phone: Comment on above: Patient Position: Sitting partial vs per patie nt 05-05-2021 08:19-0500 SaO2% (BldA) [Mass fraction] 98 % Diana Randall DO Work Phone: [facility]; [facility] Work Phone: Comment on above: Room air partial vs per patie nt 05-05-2021 08:19-0500 Systolic blood pressure 128 mm[Hg] Diana Randall DO Work Phone: [facility]; [facility] Work Phone: Comment on above: Patient Position: Sitting partial vs per patie nt 03-08-2021 10:02-0500 Body height 175.26 cm Pk Parikh LPN [facility]; [facility] Work Phone: 03-08-2021 10:02-0500 Body mass index (BMI) [Ratio] 28.35 kg/m2 Pk Parikh LPN [facility]; [facility] Work Phone: 03-08-2021 10:02-0500 Body surface area Derived from formula 2.03 m2 Pk Parikh LPN [facility]; [facility] Work Phone: 03-08-2021 10:02-0500 Body temperature 100.8 [degF] Pk Parikh LPN [facility]; [facility] Work Phone: Comment on above: Method: Oral 03-08-2021 10:02-0500 Body weight 87.09 kg Pk Parikh LPN [facility]; [facility] Work Phone: 02-18-2021 08:44-0500 Body height 175.26 cm Shana Pérez LPN [facility]; [facility] Work Phone: Comment on above: virtual, none reported 02-18-2021 08:44-0500 Body mass index (BMI) [Ratio] 28.35 kg/m2 Shana Pérez LPN [facility]; [facility] Work Phone: Comment on above: virtual, none reported 02-18-2021 08:44-0500 Body surface area Derived from formula 2.03 m2 Shana Pérez LPN [facility]; [facility] Work Phone: Comment on above: virtual, none reported 02-18-2021 08:44-0500 Body weight 87.09 kg Shana Pérez [employer] [facility]; [facility] Work Phone: Comment on above: virtual, none reported 01-07-2021 06:56-0400 Body height 175.26 cm Yana Janerb [employer] [facility]; [facility] Work Phone: 01-07-2021 06:56-0400 Body mass index (BMI) [Ratio] 29.24 kg/m2 Yana Slarb [employer] [facility]; [facility] Work Phone: 01-07-2021 06:56-0400 Body surface area Derived from formula 2.06 m2 Yana Slarb [employer] [facility]; [facility] Work Phone: 01-07-2021 06:56-0400 Body temperature 97.1 [degF] Yana Slarb [employer]; [facility] Work Phone: 01-07-2021 06:56-0400 Body weight 89.81 kg Yana Slarb [employer] [facility]; [facility] Work Phone: 01-07-2021 06:56-0400 Diastolic blood pressure 78 mm[Hg] Yana Slarb [employer] [facility]; [facility] Work Phone: Comment on above: Patient Position: Sitting; Cuff Location : Left Arm; Cuff Size: Standard 01-07-2021 06:56-0400 Heart rate 67 /min Yana Slarb [employer] [facility]; [facility] Work Phone: Comment on above: Pattern: Regular 01-07-2021 06:56-0400 Respiratory rate 18 /min Yana Slarb [employer] [facility]; [facility] Work Phone: Comment on above: Pattern: Unlabored 01-07-2021 06:56-0400 SaO2% (BldA) [Mass fraction] 98 % Yana Slarb [employer] [facility]; [facility] Work Phone: Comment on above: Room air 01-07-2021 06:56-0400 Systolic blood pressure 132 mm[Hg] Yana Reyes [place] [facility]; [facility] Work Phone: Comment on above: Patient Position: Sitting; Cuff Location : Left Arm; Cuff Size: Standard 10-21-2020 11:20-0400 Body height 175.26 cm Nella Jama [facility] Work Phone: Comment on above: no vs taken as this is phone encounter d ue to covid 10-21-2020 11:20-0400 Body mass index (BMI) [Ratio] 28.5 kg/m2 Nella Jama [facility] Work Phone: Comment on above: no vs taken as this is phone encounter d ue to covid 10-21-2020 11:20-0400 Body surface area Derived from formula 2.03 m2 Nella Jama [facility] Work Phone: Comment on above: no vs taken as this is phone encounter d ue to covid 10-21-2020 11:20-0400 Body weight 87.54 kg Nella Jama [facility] Work Phone: Comment on above: no vs taken as this is phone encounter d ue to covid 09-30-2020 09:47-0400 Body height 175.26 cm Nella Jama [facility] Work Phone: Comment on above: no vs taken as this is phone encounter d ue to covid 09-30-2020 09:47-0400 Body mass index (BMI) [Ratio] 28.5 kg/m2 Nella Jama [facility]; [facility] Work Phone: Comment on above: no vs taken as this is phone encounter d ue to covid 09-30-2020 09:47-0400 Body surface area Derived from formula 2.03 m2 Nella Iisdroius [facility]; [facility] Work Phone: Comment on above: no vs taken as this is phone encounter d ue to covid 09-30-2020 09:47-0400 Body weight 87.54 kg Nella Jama [facility]; [facility] Work Phone: Comment on above: no vs taken as this is phone encounter d ue to covid 09-23-2020 10:50-0400 Body height 175.26 cm Nella Jama [facility] Work Phone: 09-23-2020 10:50-0400 Body mass index (BMI) [Ratio] 28.5 kg/m2 Nella Jama [facility] Work Phone: 09-23-2020 10:50-0400 Body surface area Derived from formula 2.03 m2 Nella Jama [facility] Work Phone: 09-23-2020 10:50-0400 Body temperature 97.3 [degF] Nella Jama [facility]; [facility] Work Phone: Comment on above: Method: Infrared 09-23-2020 10:50-0400 Body weight 87.54 kg Nella Jama [facility]; [facility] Work Phone: 09-23-2020 10:50-0400 Diastolic blood pressure 80 mm[Hg] Nella Jama [facility]; [facility] Work Phone: Comment on above: Patient Position: Sitting; Cuff Location : Left Arm; Cuff Size: Standard 09-23-2020 10:50-0400 Heart rate 75 /min Nella Jama [facility]; [facility] Work Phone: Comment on above: Pattern: Regular 09-23-2020 10:50-0400 Respiratory rate 18 /min Nella Jama [facility]; [facility] Work Phone: Comment on above: Pattern: Unlabored 09-23-2020 10:50-0400 SaO2% (BldA) [Mass fraction] 97 % Nella Jama [facility]; [facility] Work Phone: Comment on above: Room air 09-23-2020 10:50-0400 Systolic blood pressure 128 mm[Hg] Nella Jama [facility]; [facility] Work Phone: Comment on above: Patient Position: Sitting; Cuff Location : Left Arm; Cuff Size: Standard 08-05-2020 08:42-0400 Body height 175.26 cm [facility]; [facility] Work Phone: 08-05-2020 08:42-0400 Body mass index (BMI) [Ratio] 29.68 kg/m2 [facility]; [facility] Work Phone: 08-05-2020 08:42-0400 Body surface area Derived from formula 2.07 m2 [facility]; [facility] Work Phone: 08-05-2020 08:42-0400 Body weight 91.17 kg [facility]; [facility] Work Phone: 06-29-2020 08:23-0400 BMI (Body Mass Index) 29.68 kg/m2 [facility]; [facility] Work Phone: 06-29-2020 08:23-0400 Body weight 91.17 kg [facility]; [facility] Work Phone: 06-29-2020 08:23-0400 BSA (Body Surface Area) 2.07 m2 [facility]; [facility] Work Phone: 06-29-2020 08:23-0400 Height 175.26 cm [facility]; [facility] Work Phone: 06-24-2020 09:17-0400 BMI (Body Mass Index) 29.54 kg/m2 Diana Randall [facility]; [facility] Work Phone: 06-24-2020 09:17-0400 BMI (Body Mass Index) 29.68 kg/m2 [facility]; [facility] Work Phone: Comment on above: rechecked 142/80 06-24-2020 09:17-0400 Body Temperature 97.1 [degF] [facility]; [facility] Work Phone: Comment on above: Method: Thermal Scan rechecked 142/80 06-24-2020 09:17-0400 Body weight 90.74 kg Diana Randall [facility]; [facility] Work Phone: 06-24-2020 09:17-0400 Body weight 91.17 kg [facility]; [facility] Work Phone: Comment on above: rechecked 142/80 06-24-2020 09:17-0400 BP Diastolic 80 mm[Hg] [facility]; [facility] Work Phone: Comment on above: Patient Position: Sitting; Cuff Location : Left Arm; Cuff Size: Standard rechecked 142/80 06-24-2020 09:17-0400 BP Systolic 142 mm[Hg] [facility]; [facility] Work Phone: Comment on above: Patient Position: Sitting; Cuff Location : Left Arm; Cuff Size: Standard rechecked 142/80 06-24-2020 09:17-0400 BSA (Body Surface Area) 2.07 m2 [facility]; [facility] Work Phone: Comment on above: rechecked 142/80 06-24-2020 09:17-0400 Height 175.26 cm [facility]; [facility] Work Phone: Comment on above: rechecked 142/80 06-24-2020 09:17-0400 Pulse (Heart Rate) 72 /min [facility]; [facility] Work Phone: Comment on above: Pattern: Regular rechecked 142/80 06-24-2020 09:17-0400 Respiratory Rate 16 /min [facility]; [facility] Work Phone: Comment on above: Pattern: Unlabored rechecked 142/80 06-12-2020 17:20-0400 BP Diastolic 91 mm[Hg] [facility] 06-12-2020 17:20-0400 BP Systolic 138 mm[Hg] [facility] 06-12-2020 17:20-0400 Pulse (Heart Rate) 73 /min [facility] 06-12-2020 17:20-0400 Pulse Oximetry 96 % [facility] 06-12-2020 17:20-0400 Respiratory Rate 16 /min [facility] 06-12-2020 16:00-0400 BMI (Body Mass Index) 29.95 kg/m2 [facility] 06-12-2020 16:00-0400 Body Temperature 98.01 [degF] [facility] 06-12-2020 16:00-0400 Body weight 89.36 kg [facility] 06-12-2020 16:00-0400 Height 172.7 cm [facility] 03-25-2020 10:04-0500 BMI (Body Mass Index) 29.54 kg/m2 Diana Tonia DO Work Phone: [facility]; [facility] Work Phone: Comment on above: no vs taken as this is phone encounter d ue to covid 03-25-2020 10:04-0500 Body Temperature 97.6 [degF] Diana Tonia DO Work Phone: [facility]; [facility] Work Phone: Comment on above: Method: Oral no vs taken as this is phone encounter due to covid 03-25-2020 10:04-0500 Body weight 90.74 kg Diana Tonia DO Work Phone: [facility]; [facility] Work Phone: Comment on above: no vs taken as this is phone encounter d ue to covid 03-25-2020 10:04-0500 BSA (Body Surface Area) 2.07 m2 Diana Tonia DO Work Phone: [facility]; [facility] Work Phone: Comment on above: no vs taken as this is phone encounter d ue to covid 03-25-2020 10:04-0500 Height 175.26 cm Diana Chenon DO Work Phone: [facility]; [facility] Work Phone: Comment on above: no vs taken as this is phone encounter d ue to covid 02-27-2020 10:41-0500 BMI (Body Mass Index) 29.54 kg/m2 Coni [facility]; [facility] Work Phone: 02-27-2020 10:41-0500 Body weight 90.74 kg Coni [facility]; [facility] Work Phone: 02-27-2020 10:41-0500 BSA (Body Surface Area) 2.07 m2 Coni Jj [facility]; [facility] Work Phone: 02-27-2020 10:41-0500 Height 175.26 cm Coni Jj [facility]; [facility] Work Phone: 02-18-2020 10:43-0500 BMI (Body Mass Index) 29.54 kg/m2 Pk Parikh [facility] Work Phone: 02-18-2020 10:43-0500 Body weight 90.74 kg Pk Parikh [facility] Work Phone: 02-18-2020 10:43-0500 BSA (Body Surface Area) 2.07 m2 Pk Parikh [facility] Work Phone: 02-18-2020 10:43-0500 Height 175.26 cm Pk Parikh [facility] Work Phone: 02-11-2020 10:16-0500 BMI (Body Mass Index) 29.54 kg/m2 Pk Parikh [facility] Work Phone: 02-11-2020 10:16-0500 Body Temperature 97.8 [degF] Pk Parikh LPN [facility] Work Phone: Comment on above: Method: Infrared 02-11-2020 10:16-0500 Body weight 90.74 kg Pk Parikh LPN [facility] Work Phone: 02-11-2020 10:16-0500 BP Diastolic 78 mm[Hg] Pk Parikh LPN [facility] Work Phone: Comment on above: Patient Position: Sitting; Cuff Location : Left Arm; Cuff Size: Standard 02-11-2020 10:16-0500 BP Systolic 124 mm[Hg] Pk Parikh LPN [facility] Work Phone: Comment on above: Patient Position: Sitting; Cuff Location : Left Arm; Cuff Size: Standard 02-11-2020 10:16-0500 BSA (Body Surface Area) 2.07 m2 Pk Parikh LPN [facility] Work Phone: 02-11-2020 10:16-0500 Height 175.26 cm Pk Parikh LPN [facility] Work Phone: 02-11-2020 10:16-0500 Pulse (Heart Rate) 80 /min Pk Parikh LPN [facility] Work Phone: Comment on above: Pattern: Regular 02-11-2020 10:16-0500 Pulse Oximetry 96 % Maria Elena Pulido [facility] Work Phone: Comment on above: Room air 02-11-2020 10:16-0500 Respiratory Rate 16 /min Pk Parikh LPN [facility] Work Phone: Comment on above: Pattern: Unlabored 02-11-2020 10:16-0500 SaO2% (BldA) [Mass fraction] 96 % Pk Parikh LPN [facility]; [facility] Work Phone: Comment on above: Room air 01-28-2020 08:03-0500 BMI (Body Mass Index) 29.24 kg/m2 Pk Parikh LPN [facility] Work Phone: 01-28-2020 08:03-0500 BMI (Body Mass Index) 29.98 kg/m2 Maria Elena Pulido [facility] Work Phone: 01-28-2020 08:03-0500 Body Temperature 98 [degF] Pk Parikh LPN [facility] Work Phone: Comment on above: Method: Infrared 01-28-2020 08:03-0500 Body weight 89.82 kg Pk Parikh LPN [facility] Work Phone: 01-28-2020 08:03-0500 Body weight 92.08 kg Maria Elena Pulido [facility] Work Phone: 01-28-2020 08:03-0500 BP Diastolic 90 mm[Hg] Pk Parikh LPN [facility] Work Phone: Comment on above: Patient Position: Sitting; Cuff Location : Left Arm; Cuff Size: Standard 01-28-2020 08:03-0500 BP Systolic 162 mm[Hg] Pk Parikh LPN [facility] Work Phone: Comment on above: Patient Position: Sitting; Cuff Location : Left Arm; Cuff Size: Standard 01-28-2020 08:03-0500 BSA (Body Surface Area) 2.06 m2 Pk Parikh LPN [facility] Work Phone: 01-28-2020 08:03-0500 BSA (Body Surface Area) 2.08 m2 Maria Elena Watsonbina [facility] Work Phone: 01-28-2020 08:03-0500 Height 175.26 cm Pk Parikh LPN [facility] Work Phone: 01-28-2020 08:03-0500 Pulse (Heart Rate) 90 /min Pk Parikh LPN [facility] Work Phone: Comment on above: Pattern: Regular 01-28-2020 08:03-0500 Pulse Oximetry 97 % Maria Elena Pulido [facility] Work Phone: Comment on above: Room air 01-28-2020 08:03-0500 Respiratory Rate 16 /min Pk Parikh LPN [facility] Work Phone: Comment on above: Pattern: Unlabored 01-28-2020 08:03-0500 SaO2% (BldA) [Mass fraction] 97 % Pk Parikh LPN [facility]; [facility] Work Phone: Comment on above: Room air 01-24-2020 11:34-0500 BMI (Body Mass Index) 29.98 kg/m2 Pk Parikh LPN [facility] Work Phone: 01-24-2020 11:34-0500 Body Temperature 98.2 [degF] Pk Parikh LPN [facility] Work Phone: Comment on above: Method: Oral 01-24-2020 11:34-0500 Body weight 92.08 kg Pk Parikh LPN [facility] Work Phone: 01-24-2020 11:34-0500 BSA (Body Surface Area) 2.08 m2 Pk Parikh LPN [facility] Work Phone: 01-24-2020 11:34-0500 Height 175.26 cm Pk Parikh LPN [facility] Work Phone: 12-09-2019 11:34-0400 BMI (Body Mass Index) 29.98 kg/m2 Pk Parikh LPN [facility] Work Phone: 12-09-2019 11:34-0400 Body weight 92.08 kg Pk Parikh LPN [facility] Work Phone: 12-09-2019 11:34-0400 BSA (Body Surface Area) 2.08 m2 Pk Parikh LPN [facility] Work Phone: 12-09-2019 11:34-0400 Height 175.26 cm Pk Parikh LPN [facility] Work Phone: 12-04-2019 10:58-0400 BMI (Body Mass Index) 29.98 kg/m2 Pk Parikh LPN [facility] Work Phone: 12-04-2019 10:58-0400 Body Temperature 97.9 [degF] Pk Parikh LPN [facility] Work Phone: 12-04-2019 10:58-0400 Body weight 92.08 kg Pk Parikh LPN [facility] Work Phone: 12-04-2019 10:58-0400 BSA (Body Surface Area) 2.08 m2 Pk Parikh LPN [facility] Work Phone: 12-04-2019 10:58-0400 Height 175.26 cm Pk Parikh [facility] Work Phone: 10-14-2019 08:09-0400 BMI (Body Mass Index) 14.39 kg/m2 Maria Elena Pulido [facility] Work Phone: [facility] Work Phone: Comment on above: will check temp and report to [facility] 10-14-2019 08:09-0400 Body weight 44.19 kg Maria Elena Puldio [facility] Work Phone: [facility] Work Phone: Comment on above: will check temp and report to [facility] 10-14-2019 08:09-0400 BSA (Body Surface Area) 1.52 m2 Maria Elena Pulido [facility] Work Phone: [facility] Work Phone: Comment on above: will check temp and report to [facility] 10-14-2019 08:09-0400 Height 175.26 cm Maria Elena Pulido [facility] Work Phone: [facility] Work Phone: Comment on above: will check temp and report to [facility] 10-11-2019 11:52-0400 BMI (Body Mass Index) 29.98 kg/m2 Pk Parikh [employer] [facility] Work Phone: 10-11-2019 11:52-0400 Body weight 92.09 kg Pk Parikh [facility] Work Phone: 10-11-2019 11:52-0400 BSA (Body Surface Area) 2.08 m2 Pk Parikh LPN [facility] Work Phone: 10-11-2019 11:52-0400 Height 175.26 cm Pk Parikh [facility] Work Phone: 09-13-2019 12:50-0400 BMI (Body Mass Index) 29.98 kg/m2 Pk Parikh [facility] Work Phone: Comment on above: not able to take at this time 09-13-2019 12:50-0400 Body weight 92.09 kg Pk Parikh [facility] Internal Medicine Work Phone: Comment on above: not able to take at this time 09-13-2019 12:50-0400 BSA (Body Surface Area) 2.08 m2 Pk Parikh [facility] Internal Medicine Work Phone: Comment on above: not able to take at this time 09-13-2019 12:50-0400 Height 175.26 cm Pk Parikh [facility] Internal Medicine Work Phone: Comment on above: not able to take at this time 08-27-2019 11:23-0400 BMI (Body Mass Index) 29.98 kg/m2 Shana Pérez [facility] Internal Medicine Work Phone: 08-27-2019 11:23-0400 Body Temperature 97.4 [degF] Shana Pérez [facility] Internal [facility] Work Phone: Comment on above: Method: Temporal 08-27-2019 11:23-0400 Body weight 92.09 kg Shana Pérez [facility] Internal Medicine Work Phone: 08-27-2019 11:23-0400 BP Diastolic 90 mm[Hg] Shanasade Pérez [facility] Internal Medicine Work Phone: Comment on above: Patient Position: Sitting; Cuff Location : Left Arm; Cuff Size: Standard 08-27-2019 11:23-0400 BP Systolic 178 mm[Hg] Shana Pérez [facility] Internal Medicine Work Phone: Comment on above: Patient Position: Sitting; Cuff Location : Left Arm; Cuff Size: Standard 08-27-2019 11:23-0400 BSA (Body Surface Area) 2.08 m2 Shana Pérez [facility] Internal Medicine Work Phone: 08-27-2019 11:23-0400 Height 175.26 cm Shana Pérez [facility] Internal Medicine Work Phone: 08-27-2019 11:23-0400 Pulse (Heart Rate) 91 /min Shana Pérez LPN [facility] Internal [facility] Work Phone: Comment on above: Pattern: Regular 08-27-2019 11:23-0400 Pulse Oximetry 97 % Maria Elena Pulido [facility] Internal Medicine Work Phone: Comment on above: Room air 08-27-2019 11:23-0400 Respiratory Rate 16 /min Shana Pérez LPN [facility] Work Phone: Comment on above: Pattern: Unlabored 08-27-2019 11:23-0400 SaO2% (BldA) [Mass fraction] 97 % Shana Pérez LPN [facility]; [facility] Work Phone: Comment on above: Room air 08-06-2019 11:03-0400 BMI (Body Mass Index) 29.39 kg/m2 Pk Parikh LPN [facility] Internal Medicine Work Phone: 08-06-2019 11:03-040 Body Temperature 97.2 [degF] Pk Parikh LPN [facility] Internal Medicine Work Phone: Comment on above: Method: Temporal 08-06-2019 11:03-0400 Body weight 90.27 kg Pk Parikh LPN [facility] Internal Medicine Work Phone: 08-06-2019 11:03-0400 BP Diastolic 90 mm[Hg] Pk Parikh LPN [facility] Internal Medicine Work Phone: Comment on above: Patient Position: Sitting; Cuff Location : Left Arm; Cuff Size: Standard 08-06-2019 11:03-0400 BP Systolic 158 mm[Hg] Pk Parikh LPN [facility] Internal Medicine Work Phone: Comment on above: Patient Position: Sitting; Cuff Location : Left Arm; Cuff Size: Standard 08-06-2019 11:03-0400 BSA (Body Surface Area) 2.06 m2 Pk Parikh LPN [facility] Internal Medicine Work Phone: 08-06-2019 11:03-0400 Height 175.26 cm Pk Parikh LPN [facility] Internal Medicine Work Phone: 08-06-2019 11:03-0400 Pulse (Heart Rate) 83 /min Pk Parikh LPN [facility]prehens[facility] e Internal Medicine Work Phone: Comment on above: Pattern: Regular 08-06-2019 11:03-0400 Pulse Oximetry 97 % Maria Elena Pulido [facility] Work Phone: Comment on above: Room air 08-06-2019 11:03-0400 Respiratory Rate 16 /min Pk Parikh LPN [facility] Work Phone: Comment on above: Pattern: Unlabored 08-06-2019 11:03-0400 SaO2% (BldA) [Mass fraction] 97 % Pk Parikh LPN [facility]; [facility] Work Phone: Comment on above: Room air 08-02-2019 09:14-0400 BMI (Body Mass Index) 30.18 kg/m2 Marlen Ruiz RN [facility] Work Phone: 08-02-2019 09:14-0400 Body weight 92.7 kg Marlen Ruiz RN [facility] Work Phone: 08-02-2019 09:14-0400 BSA (Body Surface Area) 2.08 m2 Marlen Ruiz RN [facility] Work Phone: 08-02-2019 09:14-0400 Height 175.26 cm Marlen Ruiz RN [facility] Work Phone: 04-06-2018 13:58-0500 BMI (Body Mass Index) 30.18 kg/m2 Pk Parikh LPN [facility] Work Phone: 04-06-2018 13:58-0500 Body Temperature 97.4 [degF] Pk Parikh LPN [facility] Work Phone: Comment on above: Method: Temporal 04-06-2018 13:58-0500 Body weight 92.7 kg Pk Parikh LPN [facility] Work Phone: 04-06-2018 13:58-0500 BP Diastolic 86 mm[Hg] Pk Parikh LPN [facility] Work Phone: Comment on above: Patient Position: Sitting; Cuff Location : Left Arm; Cuff Size: Standard 04-06-2018 13:58-0500 BP Systolic 136 mm[Hg] Pk Parikh [facility] Internal Medicine Work Phone: Comment on above: Patient Position: Sitting; Cuff Location : Left Arm; Cuff Size: Standard 04-06-2018 13:58-0500 BSA (Body Surface Area) 2.08 m2 Pk Parikh [facility] Work Phone: 04-06-2018 13:58-0500 Height 175.26 cm Pk Parikh [employer] [facility] Internal Medicine Work Phone: 04-06-2018 13:58-0500 Pulse (Heart Rate) 86 /min Pk Parikh [employer] [facility] Work Phone: Comment on above: Pattern: Regular 04-06-2018 13:58-0500 Pulse Oximetry 96 % Maria Elena Pulido [facility] Medicine Work Phone: Comment on above: Room air 04-06-2018 13:58-0500 Respiratory Rate 17 /min Pk Parikh [employer] [facility] Work Phone: Comment on above: Pattern: Unlabored 04-06-2018 13:58-0500 SaO2% (BldA) [Mass fraction] 96 % Pk Parikh [employer] [facility]; [facility] Work Phone: Comment on above: Room air 04-06-2018 13:58-0500 Weight 92.7 kg Maria Elena Pulido [facility] Work Phone: 12-08-2017 13:49-0400 BMI (Body Mass Index) 30.16 kg/m2 Loida Anatoly [facility] Work Phone: 12-08-2017 13:49-0400 Body Temperature 97.5 [degF] Loida Spencerlear [facility] Medicine Work Phone: Comment on above: Method: Temporal 12-08-2017 13:49-0400 Body weight 92.65 kg Loida Anatoly [facility] Work Phone: 12-08-2017 13:49-0400 BP Diastolic 90 mm[Hg] [facility] Work Phone: Comment on above: Patient Position: Sitting; Cuff Location : Left Arm; Cuff Size: Standard 12-08-2017 13:49-0400 BP Systolic 128 mm[Hg] Loida Ledbetter [facility] Work Phone: Comment on above: Patient Position: Sitting; Cuff Location : Left Arm; Cuff Size: Standard 12-08-2017 13:49-0400 BSA (Body Surface Area) 2.08 m2 Loida Ledbetter [facility] Work Phone: 12-08-2017 13:49-0400 Height 175.26 cm Loida Ledbetter [facility] Work Phone: 12-08-2017 13:49-0400 Pulse (Heart Rate) 83 /min Loida Ledbetter [facility] Work Phone: Comment on above: Pattern: Regular 12-08-2017 13:49-0400 Pulse Oximetry 97 % Maria Elena Pulido [facility] Work Phone: Comment on above: Room air 12-08-2017 13:49-0400 Respiratory Rate 16 /min Loida Ledbetter [facility] Work Phone: Comment on above: Pattern: Unlabored 12-08-2017 13:49-0400 SaO2% (BldA) [Mass fraction] 97 % Loida Ledbetter [facility]; [facility] Work Phone: Comment on above: Room air 12-08-2017 13:49-0400 Weight 92.65 kg Maria Elena Pulido [facility] Work Phone: 08-28-2017 15:59-0400 BMI (Body Mass Index) 29.13 kg/m2 Pk Parikh LPN [facility] Work Phone: 08-28-2017 15:59-0400 Body Temperature 97.3 [degF] Pk Parikh LPN [facility] Work Phone: 08-28-2017 15:59-0400 Body weight 89.47 kg Pk Parikh LPN [facility] Work Phone: 08-28-2017 15:59-0400 BP Diastolic 84 mm[Hg] Pk Parikh [facility] Work Phone: Comment on above: Patient Position: Sitting; Cuff Location : Left Arm; Cuff Size: Standard 08-28-2017 15:59-0400 BP Systolic 140 mm[Hg] Pk Parikh LPN [facility] Work Phone: Comment on above: Patient Position: Sitting; Cuff Location : Left Arm; Cuff Size: Standard 08-28-2017 15:59-0400 BSA (Body Surface Area) 2.05 m2 Pk Parikh LPN [facility] Work Phone: 08-28-2017 15:59-0400 Height 175.26 cm Pk Parikh LPN [facility] Work Phone: 08-28-2017 15:59-0400 Pulse (Heart Rate) 90 /min Pk Praikh LPN [facility] Work Phone: Comment on above: Pattern: Regular 08-28-2017 15:59-0400 Pulse Oximetry 97 % Maria Elena Ashok [facility] Work Phone: Comment on above: Room air 08-28-2017 15:59-0400 Respiratory Rate 16 /min Pk Parikh LPN [facility] Work Phone: Comment on above: Pattern: Unlabored 08-28-2017 15:59-0400 SaO2% (BldA) [Mass fraction] 97 % Pk Parikh LPN [facility]; [facility] Work Phone: Comment on above: Room air 08-28-2017 15:59-0400 Weight 89.47 kg Maria Elena Watsonbina [facility] Work Phone: 06-26-2017 15:31-0400 BMI (Body Mass Index) 29.24 kg/m2 Yana Reyes [facility] Work Phone: 06-26-2017 15:31-0400 Body Temperature 97.6 [degF] Yana Lucindarb [facility] Work Phone: 06-26-2017 15:31-0400 Body weight 89.81 kg Yana Lucindarb [employer] [facility] Work Phone: 06-26-2017 15:31-0400 BP Diastolic 89 mm[Hg] Yana Amy [facility] Work Phone: Comment on above: Patient Position: Sitting; Cuff Location : Left Arm; Cuff Size: Standard 06-26-2017 15:31-0400 BP Systolic 162 mm[Hg] Yana Reyes [employer] [facility] Work Phone: Comment on above: Patient Position: Sitting; Cuff Location : Left Arm; Cuff Size: Standard 06-26-2017 15:31-0400 BSA (Body Surface Area) 2.06 m2 Yana Slarb [employer] [facility] Work Phone: 06-26-2017 15:31-0400 Height 175.26 cm Yana Slarb [employer] [facility] Work Phone: 06-26-2017 15:31-0400 Pulse (Heart Rate) 101 /min Yana Amy [employer] [facility] Work Phone: Comment on above: Pattern: Regular 06-26-2017 15:31-0400 Pulse Oximetry 97 % Maria Elena Pulido [facility] Work Phone: Comment on above: Room air 06-26-2017 15:31-0400 Respiratory Rate 16 /min Yana Slarb [employer] [facility] Work Phone: Comment on above: Pattern: Unlabored 06-26-2017 15:31-0400 SaO2% (BldA) [Mass fraction] 97 % Yana Lucindarb [employer] [facility]; [facility] Work Phone: Comment on above: Room air 06-26-2017 15:31-0400 Weight 89.81 kg Maria Elena Pulido [facility] Work Phone: Encounters Encounter Date Encounter Type Care Provider Facility Start: 02-11-2025 ambulatory Maritza Howard Facility: [facility] Start: 09-23-2024 ambulatory Milton Shahid ty:[facility] Start: 09-16-2024 End: 09-16-2024 Emergency department patient visit Dr. Diana Randall DO Work Phone: -Emergency Department Work Phone: Start: 06-25-2024 End: 06-25-2024 Patient encounter procedure Maritza Howard NP-[facility] Work Phone: Start: 06-25-2024 End: 06-25-[address] Diana Randall DO Work Phone: [facility] Work Phone: Start: 06-25-2024 End: 06-25-2024 ambulatory Maritza Howard Facility:[facility] Start: 06-14-2023 End: 06-14-2023 ambulatory [facility] Work Phone: Start: 06-14-2023 End: 06-14-2023 Patient encounter procedure [facility]-Judy Squires 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 Nicolás Randall Work Phone: [facility] Start: 11-24-2022 End: 11-24-2022 Patient encounter procedure LIDA Nelson LPN [facility] Start: 11-24-2022 End: 11-24-[address] Diana Randall Work Phone: [facility] Work Phone: Start: 11-24-2022 End: 11-24-[address] Diana Randall Work Phone: [facility]-Pulmonary Services/Neurology Work Phone: Start: 11-16-2022 End: 12-23-2022 Phone Encounter Diana Randall DO Work Phone: [facility] Start: 11-16-2022 Review Diana louis DO Work Phone: [facility] Start: 11-07-2022 End: 11-07-2022 Patient encounter procedure Diana Tonia DO Work Phone: [facility] Start: 10-14-2022 End: 10-14-2022 Office outpatient visit 15 minutes Diana Tonia DO Work Phone: [facility] Start: 10-14-2022 Review Diana Fearo n DO Work Phone: [facility] Start: 09-26-2022 End: 09-26-2022 Office outpatient visit 25 minutes Diana Tonia DO Work Phone: [facility] Start: 09-26-2022 Review Diana Fearo n DO Work Phone: [facility] Start: 09-15-2022 End: 09-16-2022 Office outpatient visit 5 minutes Diana Tonia DO Work Phone: [facility] Start: 09-15-2022 End: 09-15-[address] Diana Randall Work Phone: [facility] Work Phone: Start: 06-13-2022 End: 06-13-2022 Office outpatient visit 10 minutes Diana Tonia DO Work Phone: [facility] Start: 06-06-2022 End: 06-06-[address] Diana Randall Work Phone: [facility] Work Phone: Start: 06-06-2022 End: 06-06-[address] Diana Randall Work Phone: [facility] Start: 06-06-2022 ambulatory Diana Randall DO Comp rehensive Internal Med Start: 06-06-2022 End: 06-06-[address] Diana Randall Work Phone: [facility] Work Phone: Start: 06-06-2022 End: 06-06-[address] Diana Tonia Work Phone: [facility]-Laboratory, Specimen Start: 06-06-2022 End: 06-06-2022 Annotation/Addendum Diana Tonia DO Work Phone: [facility] Start: 06-06-2022 End: 06-06-2022 Office outpatient visit 40 minutes Diana Tonia DO Work Phone: [facility] Start: 05-23-2022 End: 05-23-2022 Phone Encounter Diana Tonia DO Work Phone: [facility] Start: 05-13-2022 Review Diana Fearo n DO Work Phone: [facility] Start: 05-13-2022 End: 05-13-2022 Office outpatient visit 10 minutes Diana Tonia DO Work Phone: [facility] Start: 03-28-2022 End: 03-28-2022 Office outpatient visit 15 minutes Diana Tonia DO Work Phone: [facility] Start: 03-28-2022 Review Diana Fearo n DO Work Phone: [facility] Start: 03-08-2022 End: 03-09-2022 Office outpatient visit 5 minutes Diana Tonia DO Work Phone: [facility] Start: 10-13-2021 End: 10-13-2021 Office outpatient visit 10 minutes Diana Tonia DO Work Phone: [facility] Start: 10-13-2021 Review Diana Fearo n DO Work Phone: [facility] Start: 09-01-2021 End: 09-01-2021 Office outpatient visit 10 minutes Diana Tonia DO Work Phone: [facility] Start: 05-05-2021 End: 05-05-2021 Office outpatient visit 15 minutes Diana Tonia DO Work Phone: [facility] Start: 03-15-2021 End: 03-15-2021 Phone Encounter Diana Tonia DO Work Phone: [facility] Start: 03-08-2021 End: 03-08-2021 Office outpatient visit 15 minutes Diana Tonia DO Work Phone: [facility] Start: 03-01-2021 End: 03-01-2021 Emergency department patient visit DIANA K TONIA [facility] Start: 02-18-2021 End: 02-18-2021 Office outpatient visit 10 minutes Diana Tonia DO Work Phone: [facility] Start: 01-07-2021 End: 01-07-2021 Office outpatient visit 25 minutes Diana Tonia DO Work Phone: [facility] Start: 10-21-2020 End: 10-21-2020 Office outpatient visit 15 minutes Diana Tonia DO Work Phone: [facility] Start: 09-30-2020 End: 09-30-2020 Office outpatient visit 15 minutes Diana Tonia DO Work Phone: [facility] Start: 09-23-2020 End: 09-23-2020 Office outpatient visit 25 minutes Diana Tonia DO Work Phone: [facility] Start: 08-05-2020 End: 08-05-2020 Office outpatient visit 15 minutes Diana Tonia DO Work Phone: [facility] Start: 06-29-2020 End: 06-29-2020 Office outpatient visit 15 minutes Diana Tonia [facility] Start: 06-29-2020 Review Diana Tonia [facility] Start: 06-24-2020 End: 06-24-2020 Office outpatient visit 25 minutes Diana Tonia [facility] Start: 06-24-2020 Review Diana Tonia [facility] Start: 06-12-2020 End: 06-12-2020 Emergency department patient visit SABI PEREZARAMIS GRESHAM [facility] Start: 06-12-2020 End: 06-12-2020 Emergency department patient visit Symerton Collette Gresham Work Phone: [facility] Emergency Department Start: 04-10-2020 End: 04-10-2020 Office outpatient visit 10 minutes Diana Bryan [facility] Start: 03-27-2020 End: 03-27-2020 Office outpatient visit 5 minutes Diana Bryan [facility] Start: 03-25-2020 End: 03-25-2020 Office outpatient visit 25 minutes Diana Bryan [facility] Start: 03-25-2020 Review Diana Mckinney ens[facility] Internal Medicine Start: 02-28-2020 End: 02-28-2020 Office outpatient visit 5 minutes Diana Bryan [facility] Start: 02-27-2020 End: 02-27-2020 Office outpatient visit 15 minutes Diana Bryan [facility] Start: 02-18-2020 End: 02-18-2020 Office outpatient visit 15 minutes Diana Bryan [facility] Start: 02-11-2020 End: 02-11-2020 Office outpatient visit 25 minutes Maria Elena Bryan [facility] Start: 02-04-2020 Review Maria Elena lawler [facility] Start: 01-28-2020 End: 01-28-2020 Office outpatient visit 15 minutes Maria Elena Bryan [facility] Start: 01-28-2020 Review Maria Elena lawler [facility] Start: 01-24-2020 End: 01-24-2020 Office outpatient visit 15 minutes Maria Elena Bryan [facility] Start: 12-09-2019 End: 12-09-2019 Office outpatient visit 15 minutes Maria Elena Bryan [facility] Start: 12-05-2019 End: 12-05-2019 Office outpatient visit 5 minutes Maria Elena Bryan [facility] Start: 12-04-2019 End: 12-04-2019 Office outpatient visit 15 minutes Maria Elena Bryan [facility] Start: 11-27-2019 End: 11-27-2019 Annotation/Addendum Maria Elena Bryan [facility] al Medicine Start: 10-17-2019 End: 10-17-2019 Phone Encounter Maria Elena Bryan [facility] Medicine Start: 10-14-2019 End: 10-14-2019 Office outpatient visit 15 minutes Maria Elena Bryan [facility] Start: 10-11-2019 End: 10-11-2019 Office outpatient visit 15 minutes Maria Elena Bryan [facility] Start: 09-13-2019 End: 09-13-2019 Office outpatient visit 10 minutes Maria Elena Watsona [facility] Start: 08-27-2019 End: 08-27-2019 Office outpatient visit 15 minutes [facility] Start: 08-07-2019 End: 08-07-2019 Lab Order Maria Elena Waltera [facility] Start: 08-06-2019 End: 08-06-2019 Office outpatient visit 25 minutes Maria Elena Watsona [facility] Start: 08-02-2019 End: 08-02-2019 Office outpatient visit 15 minutes [facility] Start: 06-28-2019 End: 06-28-2019 Annotation/Addendum Maria Elena Waltera [facility] Start: 04-06-2018 End: 04-06-2018 Office outpatient visit 25 minutes [facility] Start: 12-08-2017 End: 12-08-2017 Office outpatient visit 15 minutes Maria Elena Watsona [facility] Start: 08-29-2017 End: 08-29-2017 Annotation/Addendum Maria Elena Waltera [facility] Start: 08-28-2017 End: 08-28-2017 Office outpatient visit 25 minutes [facility] Start: 08-01-2017 End: 08-01-2017 Lab Order Maria Elena Watson[facility] Developer al Medicine Start: 07-28-2017 End: 07-28-2017 Annotation/Addendum Maria Elena Waltera [facility] Start: 06-26-2017 End: 06-26-2017 Office outpatient new 45 minutes Maria Elena Watson [facility] Start: 06-16-2017 End: 06-16-2017 [facility] Date Procedure Procedure Detail Performing Clinician Start: 09-16-2024 Urnls dip stick/tablet reagent auto microscopy Dr. Diana Randall DO Work Phone: Start: 09-16-[address] Diana Randall DO Work Phone: Start: 09-16-2024 Computed tomography of abdomen and pelvis with intravenous contrast Dr. Diana Randall DO Work Phone: Start: 06-25-2024 Evaluation of diagnostic study results Dr. Diana Randall DO Work Phone: Start: 06-14-2023 CT of chest Start: 05-20-2023 CT CARDIAC SCORING WO IV CONTRAST DIANA RANDALL Start: 05-20-2023 Ct heart no contrast quant eval coronry calcium Diana Randall DO Work Phone: Start: 11-25-2022 End: 11-25-2022 Pulmonary Function Test Procedure Note: See Note; NOTES: [facility] Pulmonary Services/Neurology [address] [place] [address] MR#: [id number] Acct: [id number] Name: MARANDA ZHANG Rep #: [id number] : [id number] From: Aaron Luz DO Referring Dr: Diana Randall DO Status: REG CL I Location: [facility] Date: 11/24/22 Sex: M C INTRODUCTION: The patient is a 67-year-old male who presents for pulmonary function studies secondary to a diagnosis of abnormal chest x-ray. Respiratory therapy reported good patient effort. Bronchodilators were used during testing. INTERPRETATION: Forced expiration spirometry demonstrates the presence of a mild large airways obstructive ventilatory defect. There was no significant response to aerosolized bronchodilators. Spirograms are of good quality and plateau gradually indicating slow emptying of the lungs. Body plethysmography was performed and revealed lung volumes to be within normal limits. Diffusing capacity by single breath CO was also within normal limits. IMPRESSION: Irreversible mild large airways obstructive ventilatory defect with preserved lung volumes and diffusing capacity. 11/25/22938 <Electronically signed by Aaron Luz DO> Date Aaron Luz DO CC: Dr. Diana Randall DO Date Dictated: 11/25/22937 Date Transcribed: 11/25/22937 Marketing Producer: JUNG Signed Diana Randall DO Work Phone: Start: 11-07-2022 End: 11-07-2022 Urgent Care Visit Report Procedure Note: See Note; NOTES: [facility] [address] , [address] [place] [address] OFFICE VISIT Date of Service: 11/07/22 MR#: [id number] Acct: [id number] Name: MARANDA ZHANG Rep #: [id number] : 1955 Provider: DANIEL Sosa Age/Sex: 67/M Location: [facility] Status: Signed Intake Vital Signs 09/15/22 11:29 11/07/22 12:00 Height 5 ft 8 in 5 ft 8 in Weight: 199 lb 196 lb BMI 30.2 29.7 BP 150/80 H 126/77 H Blood Pressure Location Lt brachial Lt brachial Position Sitting Sitting Respiration 16 16 Pulse 87 69 Pulse Source Monitor Monitor Temp 98 F 98.6 F Temp Source Temporal Temporal Pulse Oximetry (%) 96 98 Oxygen Delivery Method room air room air Intake Visit Reasons: RT EAR PAIN 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 Accompanied by: Self Is patient in pain?: Yes Allergies No Known Allergies Allergy (Verified 11/07/22 11:59) Medications amlodipine 10 mg tablet 10 mg PO DAILY 05/01/20 [History Confirmed 11/07/22] cephalexin 500 mg capsule 500 ea PO DAILY 05/01/20 [History Confirmed 11/07/22] hydrochlorothiazide 25 mg tablet 25 mg PO DAILY 05/01/20 [History Confirmed 11/07/22] losartan 25 mg tablet 25 mg PO DAILY 05/01/20 [History Confirmed 11/07/22] meclizine 25 mg tablet 25 mg PO TID PRN dizziness #20 tabs 11/07/22 [Rx Confirmed 11/07/22] PFSH Medical History (Updated 11/07/22 @ 12:34 by DANIEL Brooke) BPPV (benign paroxysmal positional vertigo) Hearing loss in right ear HTN (hypertension) Knee pain Shoulder pain Surgical History History of back surgery Family History Other Alzheimers disease Cancer Multiple sclerosis Social History Smoking Status: Current every day smoker HPI HPI Chief Complaint: RT EAR PAIN Details: MARANDA ZHANG, is a 67 M who presents to the office today for follow-up status post right ear, "muffled hearing" first appreciated approximately 2 months ago with initial evaluation at the [facility] in late August having been informed likely right eustachian tube dysfunction and was given ENT referral; he has an appointment with ENT on November 18, 2022, nonetheless due to persistent symptoms he is here for right ear to be evaluated once again. He notes no complaints of fever, chills, sweats, lightheadedness, though does admit occasional dizziness. No complaints of headache or vision changes or facial pressure/postnasal drip. No cervical discomfort or BUE radicular complaints. No kean-nib-qjqhoxo products taken to assist. No close contacts with similar complaints. Non-smoker. No other associated symptoms and no other alleviating/aggravating factors. ROS Const Constitutional: No other (As above) Exam Const General: cooperative, healthy appearing and no acute distress Orientation: alert, awake and oriented x3 HENMT Head: normal to inspection Ears: hearing grossly normal bilaterally, external ears normal, TM's normal bilaterally and EAC's normal Nose: external nose normal, nares normal, septum normal and no nasal discharge Face and sinus: normal facial exam, sinuses nontender and face symmetric Mouth: oral mucosae normal, lip normal, tongue normal and oropharynx normal Throat: posterior oropharynx normal, tonsils normal, uvula midline and no postnasal drainage Eyes General: appearance normal, both eyes and all related structures Neck Neck: normal visual inspection, full ROM, no lymphadenopathy, no meningeal signs and supple Neck mass: No Thyroid: thyroid normal Lymphatic: no lymphadenopathy noted Resp Effort Inspection: normal respiratory effort and able to speak in complete sentences Cardio Rate: regular rate Pulses: radial pulses present Skin General: no rashes or lesions noted Neuro General: patient alert, patient awake and patient oriented x3 Cognition: normal cognition Speech: speech normal Psych Appearance: grossly normal Mental Status: mental status grossly normal Mood: congruent mood Affect: normal affect Speech and Movement: speech and movement normal Attitude: cooperative Coding Level of Care Code Off vis,est,level 3 Diagnoses Hearing loss in right ear H91.91 BPPV (benign paroxysmal positional vertigo) H81.10 Assessment and Plan Assessment and Plan (1) Hearing loss in right ear: Status: Acute (2) BPPV (benign paroxysmal positional vertigo): Status: Acute Plan: - consider AD eustachian tube dysfunction Meclizine as prescribed today. Supportive measures as instructed today. Keep 11/18/2022 otolaryngology appointment as previously established, ED sooner should symptoms worsen or any other concerns develop. Patient states acknowledging understanding all the above. This note was generated with [employer] 28 dictation software. It may contain incorrect words, spelling, and punctuation that were not noted in checking the note before signing. Medications: New meclizine 25 mg PO TID PRN 20 tabs 0RF dizziness 11/07/22 1235 <Electronically signed by Breezy SANCHEZ> Date Breezy SANCHEZ Cosigner Signature: Date (if applicable) CC: Diana Randall DO Work Phone: Start: 09-15-2022 End: 09-15-2022 Urgent Care Visit Report Procedure Note: See Note; NOTES: [facility] [address] [place] [address] OFFICE VISIT Date of Service: 09/15/22 MR#: [id number] Acct: [id number] Name: MARANDA ZHANG Rep #: [id number] : 1955 Provider: DANIEL Renae Age/Sex: 67/M Location: [facility] Status: Signed Intake Vital Signs 03/10/21 17:43 09/15/22 11:29 Height 5 ft 8.5 in 5 ft 8 in Weight: 199 lb BMI 30.2 BP 150/80 H Blood Pressure Location Lt brachial Position Sitting Respiration 16 Pulse 87 Pulse Source Monitor Temp 98 F Temp Source Temporal Pulse Oximetry (%) 96 Oxygen Delivery Method room air 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 Is patient in pain?: No Allergies No Known Allergies Allergy (Verified 09/15/22 11:30) Medications amlodipine 10 mg tablet 10 mg PO DAILY 02/12/21 [History Confirmed 09/15/22] cephalexin 500 mg capsule 500 ea PO DAILY 05/01/20 [History Confirmed 09/15/22] hydrochlorothiazide 25 mg tablet 25 mg PO DAILY 05/01/20 [History Confirmed 09/15/22] losartan 25 mg tablet 25 mg PO DAILY 05/01/20 [History Confirmed 09/15/22] methylprednisolone 4 mg tablets in a dose pack (Medrol (Garrison)) 4 mg PO PER PKG DIR 6 days #21 tabs 09/15/22 [Rx Confirmed 09/15/22] Nurse's Note: patient c/o ear congestion for 2 weeks PFSH Medical History (Updated 09/15/22 @ 12:03 by Aiden SANCHEZ, PA) HTN (hypertension) Knee pain Shoulder pain Surgical History (Updated 05/01/20 @ 13:26 by Nicci Ochoa) History of back surgery Family History (Updated 05/01/20 @ 13:27 by Nicci Ochoa) Other Alzheimers disease Cancer Multiple sclerosis Social History (Updated 05/01/20 @ 13:41 by Aiden SANCHEZ PA) Smoking Status: Current every day smoker HPI HPI Details: MARANDA ZHANG, is a 67 M who presents to the office today for complaint of right ear congestion. Patient states that he feels like he has water in his right ear and has for the past week or 2. Patient states that he had a episode like this approxi-1 month ago that resolved on its own and then reappeared currently. He denies otorrhea or hearing loss. No fever, chills, sweats. No nausea, vomiting, diarrhea. No other associated symptoms or alleviating/aggravating factors. ROS Const Constitutional: No other (6 system ROS completed with pertinent findings in the HPI otherwise normal.) Exam Const General: cooperative and healthy appearing [facility] Head: normocephalic and atraumatic Ears: hearing grossly normal bilaterally and TM abnormal with fluid behind the TM on the right Nose: external nose normal Face and sinus: normal facial exam and face symmetric Mouth: oral mucosae normal Throat: posterior oropharynx normal Skin General: no rashes or lesions noted Neuro General: patient alert Psych Appearance: grossly normal Mental Status: mental status grossly normal Coding Level of Care Code Off vis,new,level 3 Diagnoses Dysfunction of right eustachian tube H69.91 Assessment and Plan Assessment and Plan (1) Dysfunction of right eustachian tube: Status: Acute Medications: New methylprednisolone (Medrol (Garrison)) 4 mg PO PER PKG DIR 6 days 21 tabs 0RF Plan Medrol Dosepak as prescribed today. Patient also advised to use Zyrtec in the morning and Benadryl at night until the issue resolves. Advised to follow-up with ENT in 2 to 3 weeks if no better or sooner if worse. Patient advised other symptomatic management techniques as well as potential red flags and when appropriate to report to the ED. Patient verbalized understanding and agreement with all the above. 09/15/22 1204 <Electronically signed by Aiden SANCHEZ> Date Aiden SANCHEZ Cosigner Signature: Date (if applicable) CC: Diana Randall DO Work Phone: Start: 06-06-2022 CT angiography of chest with contrast Dr. Diana Randall Work Phone: Start: 06-06-2022 End: 06-06-2022 CTA Chest W/WO Contrast Procedure Note: See Note; NOTES: [facility] Imaging Services [address] [place] [address] CTA Chest W/WO Contrast MR#: [id number] Acct: [id number] Name: MARANDA ZHANG Rep #: [id number] : 1955 M 67 From: Deshawn albarran MD PCP: Dr. Diana Randall DO Status: REG CLI Study: CTA Chest W/WO Contrast Date of Exam: 06/06/22 Exam# [id number] Ordering Dr: Ambar Vogel MD STUDY: CTA CHEST REASON FOR EXAM: Male, 67 years old. Elevated ddimer. Upper respiratory tract infection. RADIATION DOSAGE (If Supplied By Facility): CTDIvol = ( 8.45 ) mGy, DLP = ( 434.19 ) mGycm TECHNIQUE: The examination was performed with the intravenous administration of IV 100mL Isovue-370. Post-processing of the angiographic images was performed, with multiplanar reformation and 3D reconstruction. Individualized dose optimization techniques were used for this CT. COMPARISON: None. FINDINGS: Normal enhancement of the main pulmonary artery and right and left pulmonary arteries. Normal enhancement of the bilateral peripheral pulmonary arteries. There is no demonstrated pulmonary embolism. There is atherosclerotic calcification of the aortic arch with tortuosity. There is no demonstrated aortic dissection. There are calcifications of the coronary arteries. There are visualized mediastinal lymph nodes, which are within normal size limits, and with normal morphology. Normal hilar regions. Normal visualized trachea and bronchi. The lungs are well expanded. Normal pulmonary parenchyma. Normal pleura. Normal chest wall structures. There are degenerative changes of thoracic spine. Normal visualized upper abdomen. CT/CTA Chest W/WO Contrast IMPRESSION: No evidence of pulmonary embolism. Electronically Signed: Deshawn Chavez MD at 15:39 EDT Reading Location ID and State: [address] [place] [address] , Service support , CC: Dr. Ambar Vogel MD; Dr. Diana Randall DO Marketing Producer: Signed Ambar Vogel MD Work Phone: Start: 06-06-2022 End: 06-06-2022 Chest PA and Lateral Procedure Note: See Note; NOTES: [facility] Radiology [address] [place] [address] Chest PA and Lateral MR#: [id number] Acct: [id number] Name: MARANDA ZHANG Rep #: [id number] : 1955 M 67 From: Deshawn albarran MD PCP: Dr. Diana Randall DO Status: DEP AMB Study: Chest PA and Lateral Date of Exam: 06/06/22 Exam# [id number] Ordering Dr: Angelique Kelly QUANTITATIVE EQUITY HEADLuis Fernando STUDY: X-RAY CHEST REASON FOR EXAM: Male, 67 years old. COUGH TECHNIQUE: PA and lateral views of the chest. COMPARISON: Comparison is made with prior study dated May 11, 2021. FINDINGS: Hyperinflation. The lungs are clear. There is no demonstrated pleural abnormality. Normal size heart. Normal mediastinum and leonard. There is prominence of the pulmonary hilar arteries without peripheral pulmonary vascular congestion, suggesting pulmonary hypertension. There is atherosclerotic calcification of the aortic arch with tortuosity. There are diffuse degenerative changes of the visualized thoracic spine. There is degenerative osteoarthritis of the bilateral shoulders. There is no demonstrated abnormality of the visualized soft tissue structures of the upper abdomen. RAD/Chest PA and Lateral IMPRESSION: Hyperinflation. The lungs are clear. Electronically Signed: Deshawn Chavez MD at 11:49 EDT Reading Location ID and State: [facility] [place] , Service support , CC: MIRIAM Kelly; Dr. Diana Randall DO Marketing Producer: Signed Angelique Kelly CNP Work Phone: Start: 06-06-2022 Plain chest X-ray Dr. Diana Randall Work Phone: Start: 05-11-2021 End: 05-11-2021 Chest PA and Lateral Comments: See Note; NOTES: [facility] Imaging Services [address] [place] [address] Chest PA and Lateral MR#: [id number] Acct: [id number] Name: MARANDA ZHANG Rep #: [id number] : 1955 M 66 From: Cornelius Jones PCP: Dr. Diana Randall DO Status: REG CLI Study: Chest PA and Lateral Date of Exam: 05/11/21 Exam# [id number] Ordering Dr: Diana Randall DO STUDY: X-RAY CHEST REASON FOR EXAM: Male, 66 years old. CHEST PAIN COUGH TECHNIQUE: XR Chest 2 Views COMPARISON: Prior comparison studies are not available for review at this time. FINDINGS: There is no demonstrated pleural abnormality. Normal size heart. Normal mediastinum and leonard. Normal visualized pulmonary arteries. There is atherosclerotic calcification of the aortic arch with tortuosity. There are diffuse degenerative changes of the visualized thoracic spine. There is degenerative osteoarthritis of the bilateral shoulders. There is no demonstrated abnormality of the visualized soft tissue structures of the upper abdomen. RAD/Chest PA and Lateral IMPRESSION: There are no acute findings. Electronically Signed: Cornelius Paez MD at 15:40 EST Reading Location ID and State: [address] [place] [address] , Service support , CC: Dr. Diana Randall DO Marketing Producer: Signed Diana Randall DO Work Phone: Start: 03-10-2021 End: 03-10-2021 Virtual Office Visit Comments: See Note; NOTES: [facility] Services [facility] [place] [address] OFFICE VISIT Date of Service: 03/10/21 MR#: [id number] Acct: [id number] Patient: MARANDA ZHANG Rep #: [id number] : 1955 Provider: MIRIAM loyola Age/Sex: 66/M Location: [facility] Status: Signed Intake Intake Visit Reasons: COVID-19 Allergies No Known Allergies Allergy (Verified 03/10/21 13:55) [facility] Medical History (Updated 03/10/21 @ 12:35 by Chela Fernandez QUANTITATIVE EQUITY HEAD, QUANTITATIVE EQUITY HEAD-C) HTN (hypertension) Knee pain Shoulder pain Surgical History (Updated 05/01/20 @ 13:26 by Nicci Ochoa) History of back surgery Family History (Updated 05/01/20 @ 13:27 by Nicci Ochoa) Other Alzheimers disease Cancer Multiple sclerosis Social History (Updated 05/01/20 @ 13:41 by Aiden SANCHEZ, PA) Smoking Status: Current every day smoker HPI HPI Details: Patient was informed that this visit will be billed to patient. This visit was conducted during COVID-19 pandemic. Statement read to the patient: This telehealth visit is being offered during our stay at home measures in response to the pandemic. It is subject to an office visit charge. There are also charges for the monoclonal antibody infusion which may or may not be covered by your insurance. The patient consents to continue. Symptom onset occurred: 03/06/21 Positive COVID-19 test occurred: 03/08/21 COVID vaccine administered: NO on oxygen or needed to titrate up? NO The FDA has authorized the emergency use of monoclonal antibody treatment (bamlanivimab/etesevimab or casirivimab/imdevimab) for mild to moderate COVID-19 in adults and pediatric patients with positive results of direct SARS???Cov???2 viral testing ages 12 and older, at least 40 kg, who were not at high risk for progressing to severe COVID-19 and or hospitalization. The significant known and potential risks (allergic reactions or side effects from injection including brief pain, bleeding, bruising of the skin, soreness, swelling, possible infection at the infusion site) and benefits (decrease chance of progression to severe COVID-19) of a monoclonal antibody infusion, and the extent to which such potential risks and benefits are unknown. Patients treated with monoclonal antibody infusion should continue to self-isolate and use infection control measures (such as wear mask, isolate, social distance, avoid sharing personal items, clean and disinfect "high touch" surfaces, and frequent handwashing) according to the CDC guidelines. The fact sheet for patients, parents and caregivers will be provided prior to the administration of the medication. No drugs are approved by the FDA at this time to treat outpatients with mild or moderate symptoms of COVID-19. The following information was communicated to the patient or caregiver: Monoclonal antibody infusion is not an FDA approved drug. The FDA has authorized the emergency use of monoclonal antibody therapy. The patient had the option to refuse or accept treatment with monoclonal antibody therapy. The patient was informed that the number of people treated with monoclonal antibody therapy at this time is small. The potential benefits and the potential risks of monoclonal antibody therapy are not fully known. Potential benefits of monoclonal antibody include a reduced risk of progressing to severe COVID-19 infection. Potential risks or side effects of monoclonal antibody therapy include allergic reactions, side effects from injection including brief pain, bleeding, bruising of the skin, soreness, swelling, possible infection at the infusion site. The patient stated understanding of this information communicated and wished to proceed with monoclonal antibody infusion therapy. The patient states understanding of this information communicated and wishes to proceed with monoclonal antibody infusion therapy. Patient agrees to receive either balanivimab/etesvimab or casirivimab/imdevimab upon availability. COVID + test date: 03/08/21 @ [facility] Sx Onset: 03/06/21 Sx: cough, nasal and chest congestion, headache, low grade fever, body aches, fatigue Age: 66yrs Wt 198 Ht 5'9" BMI 29.2 O2: No Vaccine: No Qualifier: Age 66 yrs, HTN, BMI 29.2 ROS Const Constitutional: Positive for fatigue, fever(s), headache(s), decreased energy and malaise ENT ENT: Positive for nasal congestion and headache(s) Resp Respiratory: Positive for cough and chest congestion Neuro Neurology: Positive for headache(s) Endo Endocrine: Positive for fatigue Exam Const General: cooperative and no acute distress Resp Effort Inspection: normal respiratory effort and able to speak in complete sentences Neuro General: patient alert, patient awake and patient oriented x3 Cognition: normal cognition Speech: speech normal Psych Mental Status: mental status grossly normal Mood: congruent mood Attitude: cooperative Thought Process: normal Thought Content: normal Judgment: judgment good Details: Details:: Exam was limited due to phone visit with no video. Quality Reporting Tobacco Screening (CMS 138) Smoking Status: Current every day smoker Coding Level of Care Code New Pt Level 1 Telephone Patient Type New History Problem Focused Exam Problem Focused Medical Decision Making Straight Forward Diagnoses COVID-19 U07.1 Over 65 years old Time Spent (min) 10 Comment 75311 Assessment and Plan Assessment and Plan (1) COVID-19: Status: Acute Plan - Chela Fernandez QUANTITATIVE EQUITY HEAD, QUANTITATIVE EQUITY HEAD-C: The patient remains appropriate for the Monoclonal Antibody Infusion. The patient states understanding of this information communicated and wishes to proceed with monoclonal antibody infusion therapy. Patient agrees to receive either balanivimab/etesvimab or casirivimab/imdevimab upon availability. (2) Over 65 years old: Status: Acute 03/10/21 8709 <Electronically signed by Chela Fernandez NP QUANTITATIVE EQUITY HEAD-C> Date Chela Fernandez NP QUANTITATIVE EQUITY HEAD-C Cosigner Signature: Date (if applicable) CC: DO Diana Huertas DO Work Phone: Start: 01-19-2021 End: 01-19-[address] Lung Screening Comments: See Note; NOTES: [facility] Imaging Services [address] [place] [address] Lung Screening MR#: [id number] Acct: [id number] Name: MARANDA ZHANG Rep #: [id number] : 1955 M 65 From: Deshawn albarran MD PCP: Dr. Diana Randall DO Status: [facility] CLI Study: Low Dose CT Lung Screening Date of Exam: 01/19 Exam# [id number] Ordering Dr: Diana Randall DO STUDY: LOW DOSE CT LUNG CANCER SCREENING REASON FOR EXAM: Male, 65 years old. FORMER SMOKER. Patient smoked 1 pack per day for 35 years. RADIATION DOSAGE (If Supplied By Facility): CTDIvol = ( 3.02 ) mGy, DLP = ( 102.69 ) mGycm TECHNIQUE: No contrast was administered. Low dose technique was utilized (average mAS-38 and kVp 120). 1.25 mm axial source images with a slice interval of 1.25-mm were reconstructed in lung windows. 2.5 mm axial source images with a slice interval of 2.5-mm were reconstructed in lung windows. 5.0 mm axial source images with a slice interval of 5.0-mm were reconstructed in soft tissue windows. Nodule measured using lung windows on PACS and/or independent workstation with automated measurement of minimum and maximum diameter. Nodule measurement reported as average diameter rounded to the nearest whole number. Growth is defined as an increase ins size of greater than 1.5 mm. COMPARISON: None. NODULES: No suspicious nodules are seen. Emphysema: Mild degree of increased markings in the peripheral anterior lateral aspect of the left lower lobe suggestive of scarring. Endobronchial lesion: None Aorta: Unremarkable. Coronary arteries: Coronary artery calcification. Heart: Unremarkable Pulmonary artery: Unremarkable Mediastinal nodes: Small benign-appearing mediastinal lymph nodes. Other chest and abdominal findings: Degenerative changes of the thoracic spine. CT/Low Dose CT Lung Screening IMPRESSION: Lung-RADS category 2 - Continue annual screening with LDCT in 12 months. IMPORTANT NOTES FOR USE: ACR Lung-RADS Version 1.1 Assessment Categories Release Date: 2018 Category: Coded 0-4 bases on nodule(s) with highest degree of suspicion. Negative screen is defined as categories 1 and 2; a positive screen is defined as categories 3 and 4. Category 3 and 4A nodules that are unchanged on interval CT should be coded as category 2, and individuals returned to screening in 12 months. Category 4X: Category 3 or 4 nodules with additional imaging findings that increase the suspicion of lung cancer, such as spiculation, GGN that doubles in size in 1 year, enlarged lymph notes, etc. Category Modifiers: S (significant finding unrelated to lung cancer) Electronically Signed: Deshawn Chavez MD at 13:25 EDT , Service support , CC: Dr. Diana Randall DO Marketing Producer: Signed Diana Randall DO Work Phone: Start: 06-12-2020 CT of head without contrast Sabi Gresham Work Phone: Start: 05-01-2020 End: 05-01-2020 Urgent Care Visit Report Comments: See Note; NOTES: [facility] [address] [place] [address] [address] [place] [address] OFFICE VISIT Date of Service: 05/01/20 MR#: [id number] Acct: [id number] Name: MARANDA ZHANG Rep #: [id number] : 1955 Provider: DANIEL Shah Age/Sex: 65/M Location: [facility] Status: Signed Intake Vital Signs 05/01/20 Height 5 ft 9 in 05/01/20 Weight: 198 lb 05/01/20 BP 150/90 H 05/01/20 Blood Pressure Location Lt brachial 05/01/20 Position Sitting 05/01/20 Respiration 14 05/01/20 Pulse 79 05/01/20 Pulse Source Monitor 05/01/20 Temp 98.6 F 05/01/20 Temp Source Temporal 05/01/20 Pulse Oximetry (%) 98 05/01/20 Oxygen Delivery Method room air Intake Visit Reasons: Sore throat/RT EAR CLOGGED Allergies No Known Allergies Allergy (Unverified 05/01/20 13:24) Medications amlodipine 10 mg tablet ea PO 05/01/20 [History Confirmed 05/01/20] cephalexin 500 mg capsule 500 mg PO Q12H 10 Days #20 cap 05/01/20 [Rx Confirmed 05/01/20] cephalexin 500 mg capsule ea PO 05/01/20 [History Confirmed 05/01/20] full spectrum hemp extract PO 05/01/20 [History] hydrochlorothiazide 25 mg tablet mg PO 05/01/20 [History Confirmed 05/01/20] losartan 25 mg tablet mg PO 05/01/20 [History Confirmed 05/01/20] PFSH Medical History (Updated 05/01/20 @ 13:34 by Aiden SANCHEZ, PA) Knee pain (Acute) Shoulder pain (Acute) HTN (hypertension) (Chronic) Surgical History (Updated 05/01/20 @ 13:26 by Nicci Ochoa) History of back surgery (Acute) Family History (Updated 05/01/20 @ 13:27 by Nicci Ochoa) Other Alzheimers disease Cancer Multiple sclerosis Social History (Updated 05/01/20 @ 13:41 by Aiden SANCHEZ PA) Smoking Status: Current every day smoker HPI HPI Details: MARANDA ZHANG, is a 65 M who presents to the office today for complaint of sinus congestion/pressure and pain as well as nasal drainage for the past 10 days. Patient states that he has tried multiple qzad-elt-dlpyjri medications with little relief. He denies fever, chills, sweats. No nausea, vomiting or diarrhea. No cough, shortness of breath or difficulty breathing. No other associated symptoms or alleviating/aggravating factors. ROS Const Constitutional: Positive for other (6 system ROS completed with pertinent findings in the HPI otherwise normal.) Exam Const General: cooperative, healthy appearing HENOH Head: normal to inspection Ears: hearing grossly normal bilaterally, TM's normal bilaterally, EAC's normal Nose: nasal discharge purulent Face and sinus: sinus tenderness frontal and maxillary Mouth: oral mucosae normal Throat: abnormal tonsil bilaterally, postnasal drainage Resp Effort Inspection: normal respiratory effort Auscultation: Bilateral: Clear to Auscultation Cardio Palpation: normal PMI Rate: regular rate Rhythm: regular rhythm Neuro General: alert, CN's II-XI intact bilaterally Psych Appearance: grossly normal Mental Status: mental status grossly normal Assessment Plan Problems 1. Acute non-recurrent pansinusitis J01.40 Status Acute Plan Keflex as prescribed today. Encouraged to get plenty of rest, drink lots of clear liquids, and use Tylenol or Ibuprofen (unless contraindicated) for fever and comfort. Patient also educated on other symptomatic management techniques. To be seen in 7-10 days if no improvement; sooner if worsening of symptoms. Patient advised of potential red flags and when appropriate to report to the ED. Patient verbalized understanding and agreement with all the above. Medications New: cephalexin 500 mg PO Q12H 10 days 20 caps 0RF Coding Level of Care Code Off vis,new,level 3 Diagnoses Acute non-recurrent pansinusitis J01.40 ?Sinusitis location: pansinusitis ?Recurrence: non-recurrent 05/01/20 1341 <Electronically signed by Aiden SANCHEZ> Date Aiden SANCHEZ Cosigner Signature: Date (if applicable) CC: Diana Randall Start: 08-27-2019 End: 08-28-2019 Hand Min 3 Views Comments: See Note; NOTES: [facility] Imaging Services [address] [place] [address] Hand Min 3 Views MR#: [id number] Acct: [id number] Name: ZHANGMARANDA Rep #: [id number] : 1955 M 64 From: Chance perez MD PCP: MIRIAM Edwards Status: REG CLI Study: Hand Min 3 Views Date of Exam: 08/27/19 Exam# [id number] Ordering Dr: Maria Elena Pulido STUDY: X-RAY - RIGHT HAND REASON FOR EXAM: Male, 64 years old. bilateral hand pain TECHNIQUE: 3 view(s) of the hand. COMPARISON: None. FINDINGS: Normal radiocarpal articulation. Normal distal radioulnar joint. Normal visualized carpal bones. Normal carpal articulations Normal carpometacarpal articulation of the thumb. Normal second through fifth carpometacarpal joints. Normal metacarpi. Normal metacarpophalangeal joint of the thumb. Normal interphalangeal joint of the thumb. Normal proximal and distal phalanges of the thumb. Normal metacarpophalangeal joints of the second through fifth fingers. Normal proximal and distal interphalangeal joints of the second through fifth fingers. Normal phalanges of the second through fifth fingers. The soft tissue structures are unremarkable. RAD/Hand Min 3 Views IMPRESSION: Normal x-ray examination of the hand. Electronically Signed: Chance Knutson MD at 2:05 EDT , Service support , CC: MIRIAM Pulido Marketing Producer: Signed Mine Ashok Work Phone: Start: 07-24-2017 End: 07-24-2017 Knee 4 or More Views Comments: See Note; NOTES: [facility] Imaging Services [address] [place] [address] Knee 4 or More Views MR#: [id number] Acct: [id number] Name: MARANDA ZHANG Rep #: [id number] : 1955 M 62 From: Satinder Uriostegui MD PCP: Maria Elena Pulido NP Status: REG CLI Study: Knee 4 or More Views Date of Exam: 07/24/17 Exam# [id number] Ordering Dr: Maria Elena Pulido STUDY: X-RAY - RIGHT KNEE REASON FOR EXAM: Swelling, right knee strain. TECHNIQUE: 4 view(s) of the knee. COMPARISON: None. FINDINGS: Normal visualized distal femur. Normal visualized proximal tibia and fibula. Normal proximal tibiofibular articulation. There is mild joint space narrowing of the medial femorotibial compartment. Normal lateral femorotibial compartment. Normal patellofemoral articulation. There is a probable joint effusion. There is an enthesophyte at the superior pole of the patella. There are small soft tissue calcifications at the anterior aspect of the knee. There is vascular calcification. RAD/Knee 4 or More Views IMPRESSION: Mild arthrosis of the medial femorotibial compartment. Probable joint effusion. Electronically Signed: Satinder Uriostegui MD at 15:06 EDT Tel , Service support , CC: Maria Elena Pulido NP Marketing Producer: Signed Maria Elena Pulido Work Phone: [facility] Operation on vertebra Coni Cross Operation on vertebra Nella Gravius Operation on vertebra [place] Cross Operation on vertebra Coni Cross Operation on vertebra Coni Cross ENAMEL CRACKER Operation on vertebra Nella Gravius CORONER/MEDICAL EXAMINER Operation on vertebra Nella Gravius CORONER/MEDICAL EXAMINER Operation on vertebra Pk Jl ENAMEL CRACKER Operation on vertebra Nella Gravius CORONER/MEDICAL EXAMINER Operation on vertebra Nella Gravius CORONER/MEDICAL EXAMINER Operation on vertebra Yana Slarb ENAMEL CRACKER Operation on vertebra Kayela Grand CORONER/MEDICAL EXAMINER Operation on vertebra Kayela Anat CORONER/MEDICAL EXAMINER Operation on vertebra Yana Slarb ENAMEL CRACKER Operation on vertebra Kayela Grand CORONER/MEDICAL EXAMINER Operation on vertebra Scooter Latham ENAMEL CRACKER Operation on vertebra Chelse a [place] CORONER/MEDICAL EXAMINER Operation on vertebra LIDA Omar ENAMEL CRACKER Plan of Treatment Date Care Activity Detail Author Start: 09-16-2024 [facility] Start: 11-24-2022 Provider Instructions for Treatment [facility]; [facility] Work Phone: Start: 11-18-2022 Influenza vaccination Influenza Vaccine (#1) [facility] Start: 10-14-2022 Procedure Education Eprescribed prescriptions (G8553) [facility]; [facility] Work Phone: Start: 10-14-2022 Provider Instructions for Treatment [facility]; [facility] Work Phone: Start: 10-14-2022 Lipid panel LIPID PANEL (92344) [facility]; [facility] Work Phone: Start: 10-14-2022 Hepatic function panel HEPATIC FUNCTION PANEL (17882) [facility]; [facility] Work Phone: Start: 09-26-2022 Procedure Education Eprescribed prescriptions (G8553) [facility]; [facility] Work Phone: Start: 09-26-2022 Provider Instructions for Treatment [facility]; [facility] Work Phone: Start: 09-26-2022 Assay of prostate specific antigen total PSA (PROSTATE SPECIFIC ANTIGEN) (V76.44) [facility]; [facility] Work Phone: Start: 09-26-2022 Hemoglobin glycosylated a1c HGB A1C (60453) [facility]; [facility] Work Phone: Start: 09-26-2022 Cyanocobalamin vitamin b-12 VITAMIN B-12 (CYANOCOBALAMIN) (65331) [facility]; [facility] Work Phone: Start: 09-26-2022 Assay of thyroid stimulating hormone tsh TSH (65158) [facility]; [facility] Work Phone: Start: 09-26-2022 Urnls dip stick/tablet reagent auto microscopy URINALYSIS, W/ MICRO (66056) [facility]; [facility] Work Phone: Start: 09-26-2022 Urine albumin quantitative MICROALBUMIN: CREATININE RATIO (39359) AND (62777) [facility]; [facility] Work Phone: Start: 09-26-2022 Comprehensive metabolic panel METABOLIC PANEL, COMPREHENSIVE (94078) [facility]; [facility] Work Phone: Start: 09-26-2022 Lipid panel LIPID PANEL (01484) [facility]; [facility] Work Phone: Start: 09-26-2022 Blood count complete auto&auto difrntl wbc CBC W/AUTO DIFF WBC (71982) [facility]; [facility] Work Phone: Start: 06-13-2022 Procedure Education Eprescribed prescriptions (G8553) [facility]; [facility] Work Phone: Start: 06-13-2022 Provider Instructions for Treatment Continue Current Prescription(s) [facility]; [facility] Work Phone: Start: 06-06-2022 Assay of troponin quantitative Troponin I (31334) [facility]; [facility] Work Phone: Start: 06-06-2022 Fibrin dgradj products d-dimer quantitative D-Dimer (28301) [facility]; [facility] Work Phone: Start: 06-06-2022 Natriuretic peptide BNTP (60605) [facility]; [facility] Work Phone: Start: 06-06-2022 Procedure Education Eprescribed prescriptions (G8553) [facility]; [facility] Work Phone: Start: 05-13-2022 Procedure Education Eprescribed prescriptions (G8553) [facility]; [facility] Work Phone: Start: 05-13-2022 Provider Instructions for Treatment Continue Current Prescription(s) [facility]; [facility] Work Phone: Start: 05-13-2022 INHOUSE COVID 19 (ONLY) RAPID (16595) INHOUSE COVID 19 (ONLY) RAPID (50214) [facility]; [facility] Work Phone: Start: 03-28-2022 Assay of prostate specific antigen total PSA (PROSTATE SPECIFIC ANTIGEN) (V76.44) [facility]; [facility] Work Phone: Start: 03-28-2022 Cyanocobalamin vitamin b-12 VITAMIN B-12 (CYANOCOBALAMIN) (96014) [facility]; [facility] Work Phone: Start: 03-28-2022 Hemoglobin glycosylated a1c HGB A1C (26237) [facility]; [facility] Work Phone: Start: 03-28-2022 Lipid panel LIPID PANEL (02936) [facility]; [facility] Work Phone: Start: 03-28-2022 Assay of thyroid stimulating hormone tsh TSH (80108) [facility]; [facility] Work Phone: Start: 03-28-2022 Urnls dip stick/tablet reagent auto microscopy URINALYSIS, W/ MICRO (91443) [facility]; [facility] Work Phone: Start: 03-28-2022 Urine albumin quantitative MICROALBUMIN: CREATININE RATIO (00787) AND (45350) [facility]; [facility] Work Phone: Start: 03-28-2022 Comprehensive metabolic panel METABOLIC PANEL, COMPREHENSIVE (83616) [facility]; [facility] Work Phone: Start: 03-28-2022 Blood count complete auto&auto difrntl wbc CBC W/AUTO DIFF WBC (87184) [facility]; [facility] Work Phone: Start: 03-28-2022 Procedure Education Eprescribed prescriptions (G8553) [facility]; [facility] Work Phone: Start: 03-28-2022 Provider Instructions for Treatment [facility]; [facility] Work Phone: Start: 11-07-2021 DTaP/Tdap/Td Vaccines (3 - Td or Tdap) DTaP/Tdap/Td Vaccines (3 - Td or Tdap) [facility] Start: 11-07-2021 Tetanus vaccination Tetanus: Every 10yrs [facility] Start: 10-13-2021 Patient Education Poison [place], [place] and [place]: poison [place] [facility]; [facility] Work Phone: Start: 10-13-2021 Procedure Education Eprescribed prescriptions (G8553) [facility]; [facility] Work Phone: Start: 10-13-2021 Provider Instructions for Treatment Follow up if no improvement or if symptoms worsen [facility]; [facility] Work Phone: Start: 09-01-2021 Procedure Education Eprescribed prescriptions (G8553) [facility]; [facility] Work Phone: Start: 05-05-2021 Procedure Education Eprescribed prescriptions (G8553) [facility]; [facility] Work Phone: Start: 03-08-2021 Procedure Education Eprescribed prescriptions (G8553) [facility]; [facility] Work Phone: Start: 03-08-2021 Provider Instructions for Treatment Follow up if no improvement or if symptoms worsen [facility]; [facility] Work Phone: Start: 03-08-2021 Iaadiadoo influenza 2019 Novel Coronavirus (COVID-19), LUKAS (39207) [facility]; [facility] Work Phone: Start: 02-18-2021 Procedure Education Eprescribed prescriptions (G8553) [facility]; [facility] Work Phone: Start: 01-07-2021 Procedure Education Eprescribed prescriptions (G8553) [facility]; [facility] Work Phone: Start: 01-07-2021 Provider Instructions for Treatment [facility]; [facility] Work Phone: Start: 01-07-2021 Cyanocobalamin vitamin b-12 VITAMIN B-12 (CYANOCOBALAMIN) (32176) [facility]; [facility] Work Phone: Start: 01-07-2021 Lipid panel LIPID PANEL (17034) [facility]; [facility] Work Phone: Start: 01-07-2021 Assay of thyroid stimulating hormone tsh TSH (92568) [facility]; [facility] Work Phone: Start: 01-07-2021 Urnls dip stick/tablet reagent auto microscopy URINALYSIS, W/ MICRO (10288) [facility]; [facility] Work Phone: Start: 01-07-2021 Urine albumin quantitative MICROALBUMIN: CREATININE RATIO (66338) AND (68163) [facility]; [facility] Work Phone: Start: 01-07-2021 Comprehensive metabolic panel METABOLIC PANEL, COMPREHENSIVE (01647) [facility]; [facility] Work Phone: Start: 01-07-2021 Blood count complete auto&auto difrntl wbc CBC W/AUTO DIFF WBC (92182) [facility]; [facility] Work Phone: Start: 10-21-2020 Procedure Education Eprescribed prescriptions (G8553) [facility]; [facility] Work Phone: Start: 09-30-2020 Procedure Education Eprescribed prescriptions (G8553) [facility]; [facility] Work Phone: Start: 09-30-2020 Provider Instructions for Treatment [facility]; [facility] Work Phone: Start: 09-23-2020 Procedure Education Eprescribed prescriptions (G8553) [facility]; [facility] Work Phone: Start: 09-23-2020 Provider Instructions for Treatment [facility]; [facility] Work Phone: Start: 09-23-2020 Hepatitis c antibody HEPATITIS C ANTIBODY (89865) [facility]; [facility] Work Phone: Start: 09-23-2020 Assay of prostate specific antigen total PSA (PROSTATE SPECIFIC ANTIGEN) (V76.44) [facility]; [facility] Work Phone: Start: 09-23-2020 Cyanocobalamin vitamin b-12 VITAMIN B-12 (CYANOCOBALAMIN) (29090) [facility]; [facility] Work Phone: Start: 09-23-2020 Urnls dip stick/tablet reagent auto microscopy URINALYSIS, W/ MICRO (81850) [facility]; [facility] Work Phone: Start: 09-23-2020 Urine albumin quantitative MICROALBUMIN: CREATININE RATIO (61730) AND (60034) [facility]; [facility] Work Phone: Start: 09-23-2020 Comprehensive metabolic panel METABOLIC PANEL, COMPREHENSIVE (59495) [facility]; [facility] Work Phone: Start: 09-23-2020 Lipid panel LIPID PANEL (04470) [facility]; [facility] Work Phone: Start: 09-23-2020 Blood count complete auto&auto difrntl wbc CBC W/AUTO DIFF WBC (35912) [facility]; [facility] Work Phone: Start: 08-05-2020 Procedure Education Eprescribed prescriptions (G8553) [facility]; [facility] Work Phone: Start: 06-29-2020 Procedure Education Eprescribed prescriptions (G8553) [facility]; [facility] Work Phone: Start: 06-29-2020 Provider Instructions for Treatment [facility]; [facility] Work Phone: Start: 06-29-2020 HbA1c (Bld) [Mass fraction] HGB A1C (31627) [facility]; [facility] Work Phone: Comment on above: do in july Start: 06-29-2020 Hemoglobin glycosylated a1c HGB A1C (56356) [facility]; [facility] Work Phone: Comment on above: do in july Start: 06-29-2020 Calcium [Mass/Vol] CALCIUM SERUM (48645) [facility]; [facility] Work Phone: Comment on above: do in july 2020 Start: 06-29-2020 Calcium total CALCIUM SERUM (88099) [facility]; [facility] Work Phone: Comment on above: do in july 2020 Start: 06-29-2020 Lipoprotein blood kim numbers & subclasses NMR Profile (81100) [facility]; [facility] Work Phone: Comment on above: in september 2020 Start: 06-29-2020 Cobalamin (Vitamin B12) [Mass/Vol] VITAMIN B-12 (CYANOCOBALAMIN) (67127) [facility]; [facility] Work Phone: Comment on above: do in september 2020 Start: 06-29-2020 Cyanocobalamin vitamin b-12 VITAMIN B-12 (CYANOCOBALAMIN) (85662) [facility]; [facility] Work Phone: Comment on above: do in september 2020 Start: 06-24-2020 Procedure Education Eprescribed prescriptions (G8553) [facility]; [facility] Work Phone: Start: 06-24-2020 Provider Instructions for Treatment [facility]; [facility] Work Phone: Start: 03-25-2020 Procedure Education Eprescribed prescriptions (G8553) [facility]; [facility] Work Phone: Start: 03-25-2020 Provider Instructions for Treatment Follow up in 3 months [facility]; [facility] Work Phone: Start: 03-25-2020 Cobalamin (Vitamin B12) [Mass/Vol] VITAMIN B-12 (CYANOCOBALAMIN) (46786) [facility]; [facility] Work Phone: Start: 03-25-2020 TSH Qn TSH (99769) [facility]; [facility] Work Phone: Start: 03-25-2020 Urnls dip stick/tablet reagent auto microscopy URINALYSIS, W/ MICRO (94550) [facility]; [facility] Work Phone: Start: 03-25-2020 Urine albumin quantitative MICROALBUMIN: CREATININE RATIO (66062) AND (84149) [facility]; [facility] Work Phone: Start: 03-25-2020 Comprehensive metabolic panel METABOLIC PANEL, COMPREHENSIVE (21488) [facility]; [facility] Work Phone: Start: 03-25-2020 Lipid panel LIPID PANEL (39756) [facility]; [facility] Work Phone: Start: 03-25-2020 Blood count complete auto&auto difrntl wbc CBC W/AUTO DIFF WBC (66175) [facility]; [facility] Work Phone: Start: 02-27-2020 Procedure Education Eprescribed prescriptions (G8553) [facility]; [facility] Work Phone: Start: 02-27-2020 Provider Instructions for Treatment Reviewed Lab [facility]; [facility] Work Phone: Start: 02-18-2020 Procedure Education Eprescribed prescriptions (G8553) [facility] Work Phone: Start: 02-11-2020 Procedure Education Eprescribed prescriptions (G8553) [facility] Work Phone: Start: 02-11-2020 Provider Instructions for Treatment [facility] Work Phone: Start: 02-11-2020 Free T4 [Mass/Vol] T4, FREE (THYROXINE) (56602) [facility] Work Phone: Start: 02-11-2020 Free T3 [Mass/Vol] T3, FREE (TRIDOTHYRONINE) (57563) [facility] Work Phone: Start: 02-11-2020 TSH Qn TSH (THYROID STIMULATING HORMONE) (25674) [facility] Work Phone: Start: 02-11-2020 Assay of parathormone PARATHORMONE (88767) [facility] Work Phone: Start: 02-11-2020 Rheumatoid factor quantitative RHEUMATOID FACTOR-QUANT (65714) test code [id number] [facility] Work Phone: Start: 02-11-2020 Extractable nuclear antigen antibody any method [facility] Work Phone: Start: 01-28-2020 Procedure Education Eprescribed prescriptions (G8553) [facility] Work Phone: Start: 01-28-2020 Provider Instructions for Treatment Follow up in 2 weeks for mole removal [facility] Work Phone: Start: 01-28-2020 Heavy metal qualitative any analytes HEAVY METAL SCREEN (73959) [facility] Work Phone: Start: 01-28-2020 Hepatitis c antibody HEPATITIS C ANTIBODY (68640) [facility] Work Phone: Start: 01-28-2020 Nuclear Ab IF (S) [Titer] TULIO (ANTINUCLEAR ANTIBODY) (72567) [facility] Work Phone: Start: 01-28-2020 Protein [Mass/Vol] Serum Protein Electrophoresis (SPEP) (85421) [facility] Work Phone: Start: 01-28-2020 Cobalamin (Vitamin B12) [Mass/Vol] VITAMIN B-12 (CYANOCOBALAMIN) (01939) [facility] Work Phone: Start: 01-28-2020 TSH Qn TSH (THYROID STIMULATING HORMONE) (64346) [facility] Work Phone: Start: 01-28-2020 Sedimentation rate rbc non-automated SED RATE ERYTHROCYTE (31296) [facility] Work Phone: Start: 01-28-2020 Comprehensive metabolic panel METABOLIC PANEL, COMPREHENSIVE (01905) [facility] Work Phone: Start: 01-28-2020 Blood count complete automated CBC & PLATELETS (AUTO) (47783) [facility] Work Phone: Start: 01-24-2020 Procedure Education Eprescribed prescriptions (G8553) [facility] Work Phone: Start: 01-24-2020 Provider Instructions for Treatment Follow up if no improvement or if symptoms worsen [facility] Work Phone: Start: 01-24-2020 Iaadiadoo influenza 2019 Novel Coronavirus (COVID-19), LUKAS (17924) [facility] Work Phone: Start: 12-09-2019 Procedure Education Eprescribed prescriptions (G8553) [facility] Work Phone: Start: 12-09-2019 Provider Instructions for Treatment Reviewed Lab [facility] Work Phone: Start: 12-04-2019 Procedure Education Eprescribed prescriptions (G8553) [facility] Work Phone: Start: 12-04-2019 Provider Instructions for Treatment [facility] Work Phone: Start: 11-19-2019 Influenza vaccination given Sequential Influenza Vaccine (#1) [facility] Start: 10-14-2019 Procedure Education Eprescribed prescriptions (G8553) [facility] Work Phone: Start: 10-14-2019 Provider Instructions for Treatment Follow up if no improvement or if symptoms worsen [facility] Work Phone: Start: 10-11-2019 Procedure Education Eprescribed prescriptions (G8553) [facility] Work Phone: Start: 10-11-2019 Provider Instructions for Treatment Follow up in 3 days with virtual visit, front to schedule [facility] Work Phone: Start: 09-13-2019 Procedure Education Eprescribed prescriptions (G8553) [facility] Work Phone: Start: 09-13-2019 Provider Instructions for Treatment Follow up if no improvement or if symptoms worsen [facility] Work Phone: Start: 08-27-2019 Procedure Education Eprescribed prescriptions (G8553) [facility] Work Phone: Start: 08-27-2019 Provider Instructions for Treatment Follow up in 3 months [facility] Work Phone: Start: 08-27-2019 25 hydroxy includes fractions if performed CALCIFEDIOL (45811) [facility] Work Phone: Comment on above: Nov 26 Start: 08-27-2019 Comprehensive metabolic panel Metabolic Panel, Comprehensive (18391) [facility] Work Phone: Comment on above: Nov 27 2019 Start: 08-27-2019 Assay of parathormone PARATHORMONE (87808) [facility] Work Phone: Comment on above: Nov 27 2019 Start: 08-27-2019 Assay of thyroid stimulating hormone tsh TSH (THYROID STIMULATING HORMONE) (60552) [facility]; [facility] Work Phone: Comment on above: Nov 27 2019 Start: 08-27-2019 TSH Qn TSH (THYROID STIMULATING HORMONE) (43422) [facility] Work Phone: Comment on above: Nov 27 2019 Start: 08-27-2019 Lipid panel LIPID PANEL (05797) [facility] Work Phone: Comment on above: fasting Nov 27, 2019 Start: 08-07-2019 Potassium [Moles/Vol] POTASSIUM SERUM (93975) [facility] Work Phone: Start: 08-07-2019 Potassium serum plasma/whole blood POTASSIUM SERUM (91600) [facility]; [facility] Work Phone: Start: 08-06-2019 Procedure Education Eprescribed prescriptions (G8553) [facility] Work Phone: Start: 08-06-2019 Provider Instructions for Treatment Follow up in 2 weeks [facility] Work Phone: Start: 08-02-2019 Procedure Education Eprescribed prescriptions (G8553) [facility] Work Phone: Start: 08-02-2019 Provider Instructions for Treatment Follow up if no improvement or if symptoms worsen [facility] Work Phone: Start: 04-06-2018 Comprehensive metabolic panel Metabolic Panel, Comprehensive (74606) [facility] Work Phone: Start: 04-06-2018 Procedure Education Eprescribed prescriptions (G8553) [facility] Work Phone: Start: 04-06-2018 Provider Instructions for Treatment Follow up in 6 months [facility] Work Phone: Start: 03-20-2018 Urine albumin quantitative MICROALBUMIN: CREATININE RATIO (29588) AND (01430) [facility] Work Phone: Start: 03-20-2018 Assay of thyroid stimulating hormone tsh TSH (65487) [facility]; [facility] Work Phone: Start: 03-20-2018 Thyrotropin Qn TSH (50662) [facility] Work Phone: Start: 03-20-2018 Blood count complete auto&auto difrntl wbc CBC, Platelets & Auto Diff (69252) [facility] Work Phone: Start: 03-20-2018 Lipid panel Lipid Panel (26605) [facility] Work Phone: Start: 03-20-2018 Comprehensive metabolic panel Metabolic Panel, Comprehensive (37140) [facility] Work Phone: Start: 12-08-2017 Procedure Education Eprescribed prescriptions (G8553) [facility] Work Phone: Start: 08-28-2017 Procedure Education Eprescribed prescriptions (G8553) [facility] Work Phone: Start: 08-28-2017 Provider Instructions for Treatment [facility] Work Phone: Start: 08-01-2017 Potassium molar conc POTASSIUM SERUM (92160) [facility] Work Phone: Comment on above: STAT STAT STAT STAT Start: 08-01-2017 Potassium serum plasma/whole blood POTASSIUM SERUM (58666) [facility]; [facility] Work Phone: Comment on above: STAT STAT STAT STAT Start: 06-26-2017 Procedure Education Eprescribed prescriptions (G8553) [facility] Work Phone: Start: 06-26-2017 Provider Instructions for Treatment [facility] Work Phone: Start: 02-09-2006 Administration of herpes zoster vaccine Zoster Vaccines (1 of 2) [facility] Start: 02-09-2006 Screening for malignant neoplasm of colon [facility] Start: 02-09-1974 Hepatitis C antibody, confirmatory test Hepatitis C Screening [facility] Start: 02-09-1974 Hepatitis C screening Hepatitis C Screening [facility] Start: 1972 COVID-19 Vaccine (1) COVID-19 Vaccine (1) [facility] Start: 02-09-1971 HIV screening HIV Screening [facility] Start: 1968 Adolescent depression screening assessment Depression Screening (PHQ9) [facility] Start: 02-09-1962 Pneumococcal Vaccine: 65+ Years (1 - PCV) Pneumococcal Vaccine: 65+ Years (1 - PCV) [facility] Start: 02-09-1959 History and physical examination, annual for health maintenance Wellness Visit [facility] Start: 1956 COVID-19 Vaccine (#1) COVID-19 Vaccine (#1) [facility] Start: 1956 Lipid panel Lipid Panel [facility] Start: 1956 Medicare Annual Wellness Visit Medicare Annual Wellness Visit (AWV) [facility] Start: 1956 Prostate specific antigen measurement PSA Level [facility] Start: 1956 Screening for malignant neoplasm of colon [facility] CT of head without contrast CT Head Or Brain Without Contrast Imaging STAT 06/12/2020 4:45 PM EDT [facility] Patient Education ED Abdominal P ain Unkn Cause Male... [facility] Work Phone: Radionuclide imaging of perfusion of myocardium under exercise stress [facility] Work Phone: [facility] Work Phone: [facility] Work Phone[facility] Work Phone: [facility] Work Phone[facility] Work Phone: [facility] Work Phone: [facility] Work Phone: [facility] Work Phone: [facility] Work Phone: [facility] Work Phone: [facility] Work Phone: [facility] Work Phone: [facility] Work Phone: [facility] Work Phone: [facility] Work Phone: [facility] Work Phone: [facility] Work Phone: [facility] Work Phone: [facility] Work Phone: [facility] Work Phone: [facility] Work Phone: [facility] Work Phone: [facility] Work Phone: [facility] Work Phone: [facility] Work Phone: [facility] Work Phone: Immunizations Immunization Date Immunization Notes Care Provider Loyda rodriguez 10-09-2022 zoster vaccine, live Kathlee n Tonia DO Work Phone: [facility]; [facility] Work Phone: 01-07-2015 influenza virus vaccine, unspecified formulation [address] Work Phone: Payers Date Payer Category Payer Self-pay [id number] 2022 Unknown [id number] 2021 Medicare MEDICARE MEDICAR E PART A AND B [id number] 2021-Present [address] [place] [address] [id number] 2021 Medicare [id number] 2019 Unknown [place] [facility] [place] [id number] 2019-Present [id number] 2019 Unknown [id number] 2018 Private Health Insurance [id number] 1955 Unknown [id number] 02 1955 Unknown [id number] 02 1956 Unknown [id number] 16 1956 Unknown [id number] Unknown Unknown [id number] Unknown [id number] 62 Unknown [id number] 62 Unknown [id number] 62 Unknown [id number] 62 Unknown [id number] 62 Social History Date Type Detail Facility Alcohol use: Former smoker [facility] Work Phone: Comment on above: 3 beers daily Tobacco use: Former smoker. [facility] Work Phone: Start: 06-12-2020 End: 09-16-2024 Tobacco smoking status NHIS Former smoker [facility] End: 06-12-2010 History of tobacco use Current smoker [facility] End: 06-12-2010 History of tobacco use Cigarette Smoker [facility] Start: 06-12-2020 Tobacco use and exposure Never used [facility] Start: 06-12-2020 Alcohol intake Current drinke r of alcohol (finding) [facility] Start: 1955 Sex Assigned At Not on file [facility] Start: 05-10-2023 End: 05-20-2023 Exposure to SARS-CoV-2 (event) Not sure [facility] Alcohol use: Alcohol use: [facility] Work Phone: Comment on above: 3 beers daily Tobacco use: Tobacco use: [facility] Work Phone: Start: 03-10-2021 End: 11-07-2022 Tobacco smoking status FLIS Unknown if ever smoked [facility] Start: 1955 Sex Assigned At Male [facility] Gender identity Not on file [facility] Work Phone: Start: 06-27-2024 Sex Male (finding) [facility] Clinical Notes 11-25-2022 to 09-16-2024 Note Date & Type Note Facility 09-16-2024 Radiology Diagnostic study note [facility] Imaging Services [address] [place] [address] Abdomen/Pelvis W IV Cont ONLY MR#: [id number] Acct: [id number] Name: MARANDA ZHANG Rep #: [id number] : 1955 M 69 From: Charanjit Borden MD PCP: Dr. Diana Randall, DO Status: RE G ER Study:Abdomen/Pelvis W IV Cont ONLY Date of E xam: 09/16/24 Exam# [id number] Ordering Dr: Desmond Cheung DO PROCEDURE: ABDOMEN/PELVIS W IV CONT ONLY 09/16/2024 REASON FOR EXAM: LEFT LOWER QUADRANT ABDOMINAL PAIN TECHNIQUE: ABDOMEN/PELVIS W IV CONT ONLY Coronal and Sagittal reconstruction series were provided. CONTRAST: 100 cc Isovue 300 One or more dose reduction techniques were used (e.g., Automated exposure control, adjustment of the mA and/or kV according to patient size, use of iterative reconstruction technique. RADIATION DOSE SUMMARY: DLP: 1088.21 mGycm COMPARISON: December 15, 2023 FINDINGS: Lung bases: Clear Liver: Unremarkable Gallbladder: Unremarkable Spleen: Unremarkable Pancreas: Unremarkable Adrenals: Unremarkable Kidneys: Unremarkable Bladder: Reproductive Organs: The bladder is not distended. There is circumferential bladder wall thickening to 0.6 cm, which may be partly secondary to lack of distention. The prostate has a nodular appearance with calcifications noted. A hydrocele is visible in the scrotum on the right and left. Bowel: The small bowel loops are nondistended. There is diverticulosis of the distal descending and sigmoid colon with no definite acute diverticulitis. Appendix: The appendix is normal in appearance. Lymph nodes: There is no pathologic adenopathy by size criteria. Vasculature: Atherosclerotic calcifications are noted. Peritoneum / Retroperitoneum: There is no free air or free fluid. Bones: There is no acute bony abnormality. CT/Abdomen/Pelvis W IV Cont ONLY IMPRESSION: There is circumferential bladder wall thickening to 0.6 cm, which may be partly secondary to lack of distention. The prostate has a nodular appearance with calcifications noted. Consider PSA correlation. There is diverticulosis of the distal descending and sigmoid colon with no definite acute diverticulitis. A hydrocele is visible in the scrotum on the right and left. Reading Location: [facility] CC: Dr. Desmond Vieira, DO; Dr. Diana Randall, DO ~ Marketing Producer: Signed [facility] 06-25-2024 Evaluation note Diagnosis Onset Date Resolution Atherosclerosis of kenaitze coronary artery acute June 25, 2024 8:20am Chest pain acute June 25 8:20am Fatigue acute June 25 8:20am Hypercholesterolemia acute Apr2024 8:20am HTN (hypertension) chronic June 25, 2024 8:20am [facility] Work Phone: 1(639) 761-990709-08-2023 [facility] noteNo assessment information [facility] Work Phone: Evaluation note* Diagnosis Onset Date Resolution Status Dysfunction of right eustachian tube acute BPPV (benign paroxysmal positional vertigo) acute Hearing loss in right ear ac jesus [facility] Work Phone: Evaluation note* Diagnosis 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 angina pectoris documented in this encounter [facility] Work Phone: Hospital Discharge instructionsAdditional Instructions Follow-up with your primary care physician. Return back to the ED if symptoms change or worsen. No clear reason for your pain at this time however may be early diverticulitis which is why the antibiotics were written.[facility] Work Phone: Instructions* Name Dates Details How to Access [employer] Online using Patient Portal and [employer] Apps Indication:Former smoker Start:05-Aug-2020 Instruction Type:Patient Education Patient Instructions Indication:Former smoker Start:05-Aug-2020 Instruction Type:Provider Instructions for Treatment How to Access Health Informa [employer] Online using Patient Portal and [employer] Apps Indication:Former smoker Start:29-Jun-2020 Instruction Type:Patient Education Patient Instructions Indication:Former smoker Start:29-Jun-2020 Instruction Type:Provider Instructions for Treatment How to Access Health Informa tion Online using Patient Portal and [employer] Apps Indication:Former smoker Start:24-Jun-2020 Instruction Type:Patient Education Patient Instructions Indication:Former smoker Start:24-Jun-2020 Instruction Type:Provider Instructions for Treatment Patient Instructions Indication:Former smoker Start:25-Mar-2020 Instruction Type:Provider Instructions for Treatment How to Access Health Informa tion Online using Patient Portal and [employer] Apps Indication:Former smoker Start:25-Mar-2020 Instruction Type:Patient Education How to Access Health Informa tion Online using Patient Portal and [employer] Indication:Former smoker Start:27-Feb-2020 Instruction Type:Patient Education Patient Instructions Indication:Former smoker Start:27-Feb-2020 Instruction Type:Provider Instructions for Treatment How to access health informa tion online Indication:Former smoker Start:18-Feb-2020 Instruction Type:Patient Education How to access health informa tion online - Detail Indication:Former smoker Start:18-Feb-2020 Instruction Type:Patient Education Patient Instructions Indication:Former smoker Start:18-Feb-2020 Instruction Type:Provider Instructions for Treatment How to access health informa tion online Indication:Former smoker Start:11-Feb-2020 Instruction Type:Patient Education How to access health informa tion online - Detail Indication:Former smoker Start:11-Feb-2020 Instruction Type:Patient Education Patient Instructions Indication:Vitamin B12 deficiency Start:11-Feb-2020 Instruction Type:Provider Instructions for Treatment How to access health informa tion online Indication:Former smoker Start:28-Jan-2020 Instruction Type:Patient Education How to access health informa tion online - Detail Indication:Former smoker Start:28-Jan-2020 Instruction Type:Patient Education Patient Instructions Indication:Former smoker Start:28-Jan-2020 Instruction Type:Provider Instructions for Treatment How to access health informa tion online Indication:BMI 29.0-29.9,adult Start:24-Jan-2020 Instruction Type:Patient Education How to access health informa tion online - Detail Indication:BMI 29.0-29.9,adult Start:24-Jan-2020 Instruction Type:Patient Education Patient Instructions Indication:BMI 29.0-29.9,adult Start:24-Jan-2020 Instruction Type:Provider Instructions for Treatment How to access health informa tion online Indication:BMI 29.0-29.9,adult Start:09-Dec-2019 Instruction Type:Patient Education How to access health informa tion online - Detail Indication:BMI 29.0-29.9,adult Start:09-Dec-2019 Instruction Type:Patient Education Patient Instructions Indication:BMI 29.0-29.9,adult Start:09-Dec-2019 Instruction Type:Provider Instructions for Treatment How to access health informa tion online Indication:Former smoker Start:04-Dec-2019 Instruction Type:Patient Education How to access health informa tion online - Detail Indication:Former smoker Start:04-Dec-2019 Instruction Type:Patient Education Patient Instructions Indication:BMI 29.0-29.9,adult Start:04-Dec-2019 Instruction Type:Provider Instructions for Treatment How to access health informa tion online Indication:Former smoker Start:14-Oct-2019 Instruction Type:Patient Education How to access health informa tion online - Detail Indication:Former smoker Start:14-Oct-2019 Instruction Type:Patient Education Patient Instructions Indication:Former smoker Start:14-Oct-2019 Instruction Type:Provider Instructions for Treatment How to access health informa tion online Indication:Former smoker Start:11-Oct-2019 Instruction Type:Patient Education How to access health informa tion online - Detail Indication:Former smoker Start:11-Oct-2019 Instruction Type:Patient Education Patient Instructions Indication:Former smoker Start:11-Oct-2019 Instruction Type:Provider Instructions for Treatment How to access health informa tion online Indication:BMI 29.0-29.9,adult Start:13-Sep-2019 Instruction Type:Patient Education How to access health informa tion online - Detail Indication:BMI 29.0-29.9,adult Start:13-Sep-2019 Instruction Type:Patient Education Patient Instructions Indication:BMI 29.0-29.9,adult Start:13-Sep-2019 Instruction Type:Provider Instructions for Treatment How to access health informa tion online Indication:Former smoker Start:27-Aug-2019 Instruction Type:Patient Education How to access health informa tion online - Detail Indication:Former smoker Start:27-Aug-2019 Instruction Type:Patient Education Patient Instructions Indication:BMI 29.0-29.9,adult Start:27-Aug-2019 Instruction Type:Provider Instructions for Treatment How to access health informa tion online Indication:Former smoker Start:06-Aug-2019 Instruction Type:Patient Education How to access health informa tion online - Detail Indication:Former smoker Start:06-Aug-2019 Instruction Type:Patient Education Patient Instructions Indication:BMI 29.0-29.9,adult Start:06-Aug-2019 Instruction Type:Provider Instructions for Treatment How to access health informa tion online Indication:BMI 30.0-30.9,adult Start:02-Aug-2019 Instruction Type:Patient Education How to access health informa tion online - Detail Indication:BMI 30.0-30.9,adult Start:02-Aug-2019 Instruction Type:Patient Education Patient Instructions Indication:BMI 30.0-30.9,adult Start:02-Aug-2019 Instruction Type:Provider Instructions for Treatment How to access health informa tion online Indication:BMI 30.0-30.9,adult Start:06-Apr-2018 Instruction Type:Patient Education How to access health informa tion online - Detail Indication:BMI 30.0-30.9,adult Start:06-Apr-2018 Instruction Type:Patient Education Patient Instructions Indication:BMI 30.0-30.9,adult Start:06-Apr-2018 Instruction Type:Provider Instructions for Treatment How to access health informa tion online Indication:Former smoker Start:08-Dec-2017 Instruction Type:Patient Education How to access health informa tion online - Detail Indication:Former smoker Start:08-Dec-2017 Instruction Type:Patient Education Patient Instructions Indication:Former smoker Start:08-Dec-2017 Instruction Type:Provider Instructions for Treatment How to access health informa tion online Indication:Hypertension Start:28-Aug-2017 Instruction Type:Patient Education How to access health informa tion online - Detail Indication:Hypertension Start:28-Aug-2017 Instruction Type:Patient Education Patient Instructions Indication:Hypertension Start:28-Aug-2017 Instruction Type:Provider Instructions for Treatment How to access health informa tion online Indication:Hypertension Start:26-Jun-2017 Instruction Type:Patient Education How to access health informa tion online - Detail Indication:Hypertension Start:26-Jun-2017 Instruction Type:Patient Education Patient Instructions Indication:Hypertension Start:26-Jun-2017 Instruction Type:Provider Instructions for Treatment [facility]; [facility] Work Phone: Instructions* Name Dates Details Patient Instructions Indication:Former smoker Start:23-Sep-2020 Instruction Type:Provider Instructions for Treatment How to Access Health Informa tion Online using Patient Portal and [employer] Indication:Hyperglycemia Start:23-Sep-2020 Instruction Type:Patient Education How to Access Health Informa tion Online using Patient Portal and [employer] Apps Indication:Former smoker Start:05-Aug-2020 Instruction Type:Patient Education Patient Instructions Indication:Former smoker Start:05-Aug-2020 Instruction Type:Provider Instructions for Treatment How to Access Health Informa tion Online using Patient Portal and [employer] Indication:Former smoker Start:29-Jun-2020 Instruction Type:Patient Education Patient Instructions Indication:Former smoker Start:29-Jun-2020 Instruction Type:Provider Instructions for Treatment How to Access Health Informa tion Online using Patient Portal and [employer] Indication:Former smoker Start:24-Jun-2020 Instruction Type:Patient Education Patient Instructions Indication:Former smoker Start:24-Jun-2020 Instruction Type:Provider Instructions for Treatment Patient Instructions Indication:Former smoker Start:25-Mar-2020 Instruction Type:Provider Instructions for Treatment How to Access Health Informa tion Online using Patient Portal and [employer] Indication:Former smoker Start:25-Mar-2020 Instruction Type:Patient Education How to Access Health Informa tion Online using Patient Portal and [employer] Indication:Former smoker Start:27-Feb-2020 Instruction Type:Patient Education Patient Instructions Indication:Former smoker Start:27-Feb-2020 Instruction Type:Provider Instructions for Treatment How to access health informa tion online Indication:Former smoker Start:18-Feb-2020 Instruction Type:Patient Education How to access health informa tion online - Detail Indication:Former smoker Start:18-Feb-2020 Instruction Type:Patient Education Patient Instructions Indication:Former smoker Start:18-Feb-2020 Instruction Type:Provider Instructions for Treatment How to access health informa tion online Indication:Former smoker Start:11-Feb-2020 Instruction Type:Patient Education How to access health informa tion online - Detail Indication:Former smoker Start:11-Feb-2020 Instruction Type:Patient Education Patient Instructions Indication:Vitamin B12 deficiency Start:11-Feb-2020 Instruction Type:Provider Instructions for Treatment How to access health informa tion online Indication:Former smoker Start:28-Jan-2020 Instruction Type:Patient Education How to access health informa tion online - Detail Indication:Former smoker Start:28-Jan-2020 Instruction Type:Patient Education Patient Instructions Indication:Former smoker Start:28-Jan-2020 Instruction Type:Provider Instructions for Treatment How to access health informa tion online Indication:BMI 29.0-29.9,adult Start:24-Jan-2020 Instruction Type:Patient Education How to access health informa tion online - Detail Indication:BMI 29.0-29.9,adult Start:24-Jan-2020 Instruction Type:Patient Education Patient Instructions Indication:BMI 29.0-29.9,adult Start:24-Jan-2020 Instruction Type:Provider Instructions for Treatment How to access health informa tion online Indication:BMI 29.0-29.9,adult Start:09-Dec-2019 Instruction Type:Patient Education How to access health informa tion online - Detail Indication:BMI 29.0-29.9,adult Start:09-Dec-2019 Instruction Type:Patient Education Patient Instructions Indication:BMI 29.0-29.9,adult Start:09-Dec-2019 Instruction Type:Provider Instructions for Treatment How to access health informa tion online Indication:Former smoker Start:04-Dec-2019 Instruction Type:Patient Education How to access health informa tion online - Detail Indication:Former smoker Start:04-Dec-2019 Instruction Type:Patient Education Patient Instructions Indication:BMI 29.0-29.9,adult Start:04-Dec-2019 Instruction Type:Provider Instructions for Treatment How to access health informa tion online Indication:Former smoker Start:14-Oct-2019 Instruction Type:Patient Education How to access health informa tion online - Detail Indication:Former smoker Start:14-Oct-2019 Instruction Type:Patient Education Patient Instructions Indication:Former smoker Start:14-Oct-2019 Instruction Type:Provider Instructions for Treatment How to access health informa tion online Indication:Former smoker Start:11-Oct-2019 Instruction Type:Patient Education How to access health informa tion online - Detail Indication:Former smoker Start:11-Oct-2019 Instruction Type:Patient Education Patient Instructions Indication:Former smoker Start:11-Oct-2019 Instruction Type:Provider Instructions for Treatment How to access health informa tion online Indication:BMI 29.0-29.9,adult Start:13-Sep-2019 Instruction Type:Patient Education How to access health informa tion online - Detail Indication:BMI 29.0-29.9,adult Start:13-Sep-2019 Instruction Type:Patient Education Patient Instructions Indication:BMI 29.0-29.9,adult Start:13-Sep-2019 Instruction Type:Provider Instructions for Treatment How to access health informa tion online Indication:Former smoker Start:27-Aug-2019 Instruction Type:Patient Education How to access health informa tion online - Detail Indication:Former smoker Start:27-Aug-2019 Instruction Type:Patient Education Patient Instructions Indication:BMI 29.0-29.9,adult Start:27-Aug-2019 Instruction Type:Provider Instructions for Treatment How to access health informa tion online Indication:Former smoker Start:06-Aug-2019 Instruction Type:Patient Education How to access health informa tion online - Detail Indication:Former smoker Start:06-Aug-2019 Instruction Type:Patient Education Patient Instructions Indication:BMI 29.0-29.9,adult Start:06-Aug-2019 Instruction Type:Provider Instructions for Treatment How to access health informa tion online Indication:BMI 30.0-30.9,adult Start:02-Aug-2019 Instruction Type:Patient Education How to access health informa tion online - Detail Indication:BMI 30.0-30.9,adult Start:02-Aug-2019 Instruction Type:Patient Education Patient Instructions Indication:BMI 30.0-30.9,adult Start:02-Aug-2019 Instruction Type:Provider Instructions for Treatment How to access health informa tion online Indication:BMI 30.0-30.9,adult Start:06-Apr-2018 Instruction Type:Patient Education How to access health informa tion online - Detail Indication:BMI 30.0-30.9,adult Start:06-Apr-2018 Instruction Type:Patient Education Patient Instructions Indication:BMI 30.0-30.9,adult Start:06-Apr-2018 Instruction Type:Provider Instructions for Treatment How to access health informa tion online Indication:Former smoker Start:08-Dec-2017 Instruction Type:Patient Education How to access health informa tion online - Detail Indication:Former smoker Start:08-Dec-2017 Instruction Type:Patient Education Patient Instructions Indication:Former smoker Start:08-Dec-2017 Instruction Type:Provider Instructions for Treatment How to access health informa tion online Indication:Hypertension Start:28-Aug-2017 Instruction Type:Patient Education How to access health informa tion online - Detail Indication:Hypertension Start:28-Aug-2017 Instruction Type:Patient Education Patient Instructions Indication:Hypertension Start:28-Aug-2017 Instruction Type:Provider Instructions for Treatment How to access health informa tion online Indication:Hypertension Start:26-Jun-2017 Instruction Type:Patient Education How to access health informa tion online - Detail Indication:Hypertension Start:26-Jun-2017 Instruction Type:Patient Education Patient Instructions Indication:Hypertension Start:26-Jun-2017 Instruction Type:Provider Instructions for Treatment [facility]; [facility] Work Phone: Instructions* Name Dates Details Patient Instructions Indication:BMI 28.0-28.9,adult Start:30-Sep-2020 Instruction Type:Provider Instructions for Treatment How to Access Health Informa tion Online using Patient Portal and [employer]rd [employer] Apps Indication:BMI 28.0-28.9,adult Start:30-Sep-2020 Instruction Type:Patient Education Patient Instructions Indication:Former smoker Start:23-Sep-2020 Instruction Type:Provider Instructions for Treatment How to Access Health Informa tion Online using Patient Portal and [employer]rd [employer] Apps Indication:Hyperglycemia Start:23-Sep-2020 Instruction Type:Patient Education How to Access Health Informa tion Online using Patient Portal and [employer] Apps Indication:Former smoker Start:05-Aug-2020 Instruction Type:Patient Education Patient Instructions Indication:Former smoker Start:05-Aug-2020 Instruction Type:Provider Instructions for Treatment How to Access Health Informa tion Online using Patient Portal and [employer] Apps Indication:Former smoker Start:29-Jun-2020 Instruction Type:Patient Education Patient Instructions Indication:Former smoker Start:29-Jun-2020 Instruction Type:Provider Instructions for Treatment How to Access Health Informa tion Online using Patient Portal and [employer] Apps Indication:Former smoker Start:24-Jun-2020 Instruction Type:Patient Education Patient Instructions Indication:Former smoker Start:24-Jun-2020 Instruction Type:Provider Instructions for Treatment Patient Instructions Indication:Former smoker Start:25-Mar-2020 Instruction Type:Provider Instructions for Treatment How to Access Health Informa tion Online using Patient Portal and [employer] Apps Indication:Former smoker Start:25-Mar-2020 Instruction Type:Patient Education How to Access Health Informa tion Online using Patient Portal and [employer] Apps Indication:Former smoker Start:27-Feb-2020 Instruction Type:Patient Education Patient Instructions Indication:Former smoker Start:27-Feb-2020 Instruction Type:Provider Instructions for Treatment How to access health informa tion online Indication:Former smoker Start:18-Feb-2020 Instruction Type:Patient Education How to access health informa tion online - Detail Indication:Former smoker Start:18-Feb-2020 Instruction Type:Patient Education Patient Instructions Indication:Former smoker Start:18-Feb-2020 Instruction Type:Provider Instructions for Treatment How to access health informa tion online Indication:Former smoker Start:11-Feb-2020 Instruction Type:Patient Education How to access health informa tion online - Detail Indication:Former smoker Start:11-Feb-2020 Instruction Type:Patient Education Patient Instructions Indication:Vitamin B12 deficiency Start:11-Feb-2020 Instruction Type:Provider Instructions for Treatment How to access health informa tion online Indication:Former smoker Start:28-Jan-2020 Instruction Type:Patient Education How to access health informa tion online - Detail Indication:Former smoker Start:28-Jan-2020 Instruction Type:Patient Education Patient Instructions Indication:Former smoker Start:28-Jan-2020 Instruction Type:Provider Instructions for Treatment How to access health informa tion online Indication:BMI 29.0-29.9,adult Start:24-Jan-2020 Instruction Type:Patient Education How to access health informa tion online - Detail Indication:BMI 29.0-29.9,adult Start:24-Jan-2020 Instruction Type:Patient Education Patient Instructions Indication:BMI 29.0-29.9,adult Start:24-Jan-2020 Instruction Type:Provider Instructions for Treatment How to access health informa tion online Indication:BMI 29.0-29.9,adult Start:09-Dec-2019 Instruction Type:Patient Education How to access health informa tion online - Detail Indication:BMI 29.0-29.9,adult Start:09-Dec-2019 Instruction Type:Patient Education Patient Instructions Indication:BMI 29.0-29.9,adult Start:09-Dec-2019 Instruction Type:Provider Instructions for Treatment How to access health informa tion online Indication:Former smoker Start:04-Dec-2019 Instruction Type:Patient Education How to access health informa tion online - Detail Indication:Former smoker Start:04-Dec-2019 Instruction Type:Patient Education Patient Instructions Indication:BMI 29.0-29.9,adult Start:04-Dec-2019 Instruction Type:Provider Instructions for Treatment How to access health informa tion online Indication:Former smoker Start:14-Oct-2019 Instruction Type:Patient Education How to access health informa tion online - Detail Indication:Former smoker Start:14-Oct-2019 Instruction Type:Patient Education Patient Instructions Indication:Former smoker Start:14-Oct-2019 Instruction Type:Provider Instructions for Treatment How to access health informa tion online Indication:Former smoker Start:11-Oct-2019 Instruction Type:Patient Education How to access health informa tion online - Detail Indication:Former smoker Start:11-Oct-2019 Instruction Type:Patient Education Patient Instructions Indication:Former smoker Start:11-Oct-2019 Instruction Type:Provider Instructions for Treatment How to access health informa tion online Indication:BMI 29.0-29.9,adult Start:13-Sep-2019 Instruction Type:Patient Education How to access health informa tion online - Detail Indication:BMI 29.0-29.9,adult Start:13-Sep-2019 Instruction Type:Patient Education Patient Instructions Indication:BMI 29.0-29.9,adult Start:13-Sep-2019 Instruction Type:Provider Instructions for Treatment How to access health informa tion online Indication:Former smoker Start:27-Aug-2019 Instruction Type:Patient Education How to access health informa tion online - Detail Indication:Former smoker Start:27-Aug-2019 Instruction Type:Patient Education Patient Instructions Indication:BMI 29.0-29.9,adult Start:27-Aug-2019 Instruction Type:Provider Instructions for Treatment How to access health informa tion online Indication:Former smoker Start:06-Aug-2019 Instruction Type:Patient Education How to access health informa tion online - Detail Indication:Former smoker Start:06-Aug-2019 Instruction Type:Patient Education Patient Instructions Indication:BMI 29.0-29.9,adult Start:06-Aug-2019 Instruction Type:Provider Instructions for Treatment How to access health informa tion online Indication:BMI 30.0-30.9,adult Start:02-Aug-2019 Instruction Type:Patient Education How to access health informa tion online - Detail Indication:BMI 30.0-30.9,adult Start:02-Aug-2019 Instruction Type:Patient Education Patient Instructions Indication:BMI 30.0-30.9,adult Start:02-Aug-2019 Instruction Type:Provider Instructions for Treatment How to access health informa tion online Indication:BMI 30.0-30.9,adult Start:06-Apr-2018 Instruction Type:Patient Education How to access health informa tion online - Detail Indication:BMI 30.0-30.9,adult Start:06-Apr-2018 Instruction Type:Patient Education Patient Instructions Indication:BMI 30.0-30.9,adult Start:06-Apr-2018 Instruction Type:Provider Instructions for Treatment How to access health informa tion online Indication:Former smoker Start:08-Dec-2017 Instruction Type:Patient Education How to access health informa tion online - Detail Indication:Former smoker Start:08-Dec-2017 Instruction Type:Patient Education Patient Instructions Indication:Former smoker Start:08-Dec-2017 Instruction Type:Provider Instructions for Treatment How to access health informa tion online Indication:Hypertension Start:28-Aug-2017 Instruction Type:Patient Education How to access health informa tion online - Detail Indication:Hypertension Start:28-Aug-2017 Instruction Type:Patient Education Patient Instructions Indication:Hypertension Start:28-Aug-2017 Instruction Type:Provider Instructions for Treatment How to access health informa tion online Indication:Hypertension Start:26-Jun-2017 Instruction Type:Patient Education How to access health informa tion online - Detail Indication:Hypertension Start:26-Jun-2017 Instruction Type:Patient Education Patient Instructions Indication:Hypertension Start:26-Jun-2017 Instruction Type:Provider Instructions for Treatment [facility]; [facility] Work Phone: Instructions* Name Dates Details Patient Instructions Indication:Former smoker Start:08-Mar-2021 Instruction Type:Provider Instructions for Treatment How to Access Health Informa tion Online using Patient Portal and [employer]rd [employer] Apps Indication:Former smoker Start:08-Mar-2021 Instruction Type:Patient Education Patient Instructions Indication:BMI 29.0-29.9,adult Start:18-Feb-2021 Instruction Type:Provider Instructions for Treatment How to Access Health Informa tion Online using Patient Portal and [employer] Apps Indication:BMI 29.0-29.9,adult Start:18-Feb-2021 Instruction Type:Patient Education Patient Instructions Indication:BMI 28.0-28.9,adult Start:07-Jan-2021 Instruction Type:Provider Instructions for Treatment How to Access Health Informa tion Online using Patient Portal and [employer] Apps Indication:BMI 28.0-28.9,adult Start:07-Jan-2021 Instruction Type:Patient Education Patient Instructions Indication:Former smoker Start:21-Oct-2020 Instruction Type:Provider Instructions for Treatment How to Access Health Informa tion Online using Patient Portal and [employer] Apps Indication:Former smoker Start:21-Oct-2020 Instruction Type:Patient Education Patient Instructions Indication:BMI 28.0-28.9,adult Start:30-Sep-2020 Instruction Type:Provider Instructions for Treatment How to Access Health Informa tion Online using Patient Portal and [employer] Apps Indication:BMI 28.0-28.9,adult Start:30-Sep-2020 Instruction Type:Patient Education Patient Instructions Indication:Former smoker Start:23-Sep-2020 Instruction Type:Provider Instructions for Treatment How to Access Health Informa tion Online using Patient Portal and [employer] Apps Indication:Hyperglycemia Start:23-Sep-2020 Instruction Type:Patient Education How to Access Health Informa tion Online using Patient Portal and [employer] Apps Indication:Former smoker Start:05-Aug-2020 Instruction Type:Patient Education Patient Instructions Indication:Former smoker Start:05-Aug-2020 Instruction Type:Provider Instructions for Treatment How to Access Health Informa tion Online using Patient Portal and [employer] Apps Indication:Former smoker Start:29-Jun-2020 Instruction Type:Patient Education Patient Instructions Indication:Former smoker Start:29-Jun-2020 Instruction Type:Provider Instructions for Treatment How to Access Health Informa tion Online using Patient Portal and [employer] Apps Indication:Former smoker Start:24-Jun-2020 Instruction Type:Patient Education Patient Instructions Indication:Former smoker Start:24-Jun-2020 Instruction Type:Provider Instructions for Treatment Patient Instructions Indication:Former smoker Start:25-Mar-2020 Instruction Type:Provider Instructions for Treatment How to Access Health Informa tion Online using Patient Portal and [employer] Apps Indication:Former smoker Start:25-Mar-2020 Instruction Type:Patient Education How to Access Health Informa tion Online using Patient Portal and [employer] Apps Indication:Former smoker Start:27-Feb-2020 Instruction Type:Patient Education Patient Instructions Indication:Former smoker Start:27-Feb-2020 Instruction Type:Provider Instructions for Treatment How to access health informa tion online Indication:Former smoker Start:18-Feb-2020 Instruction Type:Patient Education How to access health informa tion online - Detail Indication:Former smoker Start:18-Feb-2020 Instruction Type:Patient Education Patient Instructions Indication:Former smoker Start:18-Feb-2020 Instruction Type:Provider Instructions for Treatment How to access health informa tion online Indication:Former smoker Start:11-Feb-2020 Instruction Type:Patient Education How to access health informa tion online - Detail Indication:Former smoker Start:11-Feb-2020 Instruction Type:Patient Education Patient Instructions Indication:Vitamin B12 deficiency Start:11-Feb-2020 Instruction Type:Provider Instructions for Treatment How to access health informa tion online Indication:Former smoker Start:28-Jan-2020 Instruction Type:Patient Education How to access health informa tion online - Detail Indication:Former smoker Start:28-Jan-2020 Instruction Type:Patient Education Patient Instructions Indication:Former smoker Start:28-Jan-2020 Instruction Type:Provider Instructions for Treatment How to access health informa tion online Indication:BMI 29.0-29.9,adult Start:24-Jan-2020 Instruction Type:Patient Education How to access health informa tion online - Detail Indication:BMI 29.0-29.9,adult Start:24-Jan-2020 Instruction Type:Patient Education Patient Instructions Indication:BMI 29.0-29.9,adult Start:24-Jan-2020 Instruction Type:Provider Instructions for Treatment How to access health informa tion online Indication:BMI 29.0-29.9,adult Start:09-Dec-2019 Instruction Type:Patient Education How to access health informa tion online - Detail Indication:BMI 29.0-29.9,adult Start:09-Dec-2019 Instruction Type:Patient Education Patient Instructions Indication:BMI 29.0-29.9,adult Start:09-Dec-2019 Instruction Type:Provider Instructions for Treatment How to access health informa tion online Indication:Former smoker Start:04-Dec-2019 Instruction Type:Patient Education How to access health informa tion online - Detail Indication:Former smoker Start:04-Dec-2019 Instruction Type:Patient Education Patient Instructions Indication:BMI 29.0-29.9,adult Start:04-Dec-2019 Instruction Type:Provider Instructions for Treatment How to access health informa tion online Indication:Former smoker Start:14-Oct-2019 Instruction Type:Patient Education How to access health informa tion online - Detail Indication:Former smoker Start:14-Oct-2019 Instruction Type:Patient Education Patient Instructions Indication:Former smoker Start:14-Oct-2019 Instruction Type:Provider Instructions for Treatment How to access health informa tion online Indication:Former smoker Start:11-Oct-2019 Instruction Type:Patient Education How to access health informa tion online - Detail Indication:Former smoker Start:11-Oct-2019 Instruction Type:Patient Education Patient Instructions Indication:Former smoker Start:11-Oct-2019 Instruction Type:Provider Instructions for Treatment How to access health informa tion online Indication:BMI 29.0-29.9,adult Start:13-Sep-2019 Instruction Type:Patient Education How to access health informa tion online - Detail Indication:BMI 29.0-29.9,adult Start:13-Sep-2019 Instruction Type:Patient Education Patient Instructions Indication:BMI 29.0-29.9,adult Start:13-Sep-2019 Instruction Type:Provider Instructions for Treatment How to access health informa tion online Indication:Former smoker Start:27-Aug-2019 Instruction Type:Patient Education How to access health informa tion online - Detail Indication:Former smoker Start:27-Aug-2019 Instruction Type:Patient Education Patient Instructions Indication:BMI 29.0-29.9,adult Start:27-Aug-2019 Instruction Type:Provider Instructions for Treatment How to access health informa tion online Indication:Former smoker Start:06-Aug-2019 Instruction Type:Patient Education How to access health informa tion online - Detail Indication:Former smoker Start:06-Aug-2019 Instruction Type:Patient Education Patient Instructions Indication:BMI 29.0-29.9,adult Start:06-Aug-2019 Instruction Type:Provider Instructions for Treatment How to access health informa tion online Indication:BMI 30.0-30.9,adult Start:02-Aug-2019 Instruction Type:Patient Education How to access health informa tion online - Detail Indication:BMI 30.0-30.9,adult Start:02-Aug-2019 Instruction Type:Patient Education Patient Instructions Indication:BMI 30.0-30.9,adult Start:02-Aug-2019 Instruction Type:Provider Instructions for Treatment How to access health informa tion online Indication:BMI 30.0-30.9,adult Start:06-Apr-2018 Instruction Type:Patient Education How to access health informa tion online - Detail Indication:BMI 30.0-30.9,adult Start:06-Apr-2018 Instruction Type:Patient Education Patient Instructions Indication:BMI 30.0-30.9,adult Start:06-Apr-2018 Instruction Type:Provider Instructions for Treatment How to access health informa tion online Indication:Former smoker Start:08-Dec-2017 Instruction Type:Patient Education How to access health informa tion online - Detail Indication:Former smoker Start:08-Dec-2017 Instruction Type:Patient Education Patient Instructions Indication:Former smoker Start:08-Dec-2017 Instruction Type:Provider Instructions for Treatment How to access health informa tion online Indication:Hypertension Start:28-Aug-2017 Instruction Type:Patient Education How to access health informa tion online - Detail Indication:Hypertension Start:28-Aug-2017 Instruction Type:Patient Education Patient Instructions Indication:Hypertension Start:28-Aug-2017 Instruction Type:Provider Instructions for Treatment How to access health informa tion online Indication:Hypertension Start:26-Jun-2017 Instruction Type:Patient Education How to access health informa tion online - Detail Indication:Hypertension Start:26-Jun-2017 Instruction Type:Patient Education Patient Instructions Indication:Hypertension Start:26-Jun-2017 Instruction Type:Provider Instructions for Treatment [facility]; [facility] Work Phone: Instructions* Name Dates Details Patient Instructions Indication:Former smoker Start:08-Mar-2021 Instruction Type:Provider Instructions for Treatment How to Access Health Informa tion Online using Patient Portal and [employer] Indication:Former smoker Start:08-Mar-2021 Instruction Type:Patient Education Patient Instructions Indication:BMI 29.0-29.9,adult Start:18-Feb-2021 Instruction Type:Provider Instructions for Treatment How to Access Health Informa tion Online using Patient Portal and [employer] Apps Indication:BMI 29.0-29.9,adult Start:18-Feb-2021 Instruction Type:Patient Education Patient Instructions Indication:BMI 28.0-28.9,adult Start:07-Jan-2021 Instruction Type:Provider Instructions for Treatment How to Access Health Informa tion Online using Patient Portal and [employer] Indication:BMI 28.0-28.9,adult Start:07-Jan-2021 Instruction Type:Patient Education Patient Instructions Indication:Former smoker Start:21-Oct-2020 Instruction Type:Provider Instructions for Treatment How to Access Health Informa tion Online using Patient Portal and [employer]rd [employer] Indication:Former smoker Start:21-Oct-2020 Instruction Type:Patient Education Patient Instructions Indication:BMI 28.0-28.9,adult Start:30-Sep-2020 Instruction Type:Provider Instructions for Treatment How to Access Health Informa tion Online using Patient Portal and [employer]rd [employer] Apps Indication:BMI 28.0-28.9,adult Start:30-Sep-2020 Instruction Type:Patient Education Patient Instructions Indication:Former smoker Start:23-Sep-2020 Instruction Type:Provider Instructions for Treatment How to Access Health Informa tion Online using Patient Portal and [employer]rd [employer] Apps Indication:Hyperglycemia Start:23-Sep-2020 Instruction Type:Patient Education How to Access Health Informa tion Online using Patient Portal and [employer]rd [employer] Apps Indication:Former smoker Start:05-Aug-2020 Instruction Type:Patient Education Patient Instructions Indication:Former smoker Start:05-Aug-2020 Instruction Type:Provider Instructions for Treatment How to Access Health Informa tion Online using Patient Portal and [employer]rd [employer] Apps Indication:Former smoker Start:29-Jun-2020 Instruction Type:Patient Education Patient Instructions Indication:Former smoker Start:29-Jun-2020 Instruction Type:Provider Instructions for Treatment How to Access Health Informa tion Online using Patient Portal and [employer]rd [employer] Apps Indication:Former smoker Start:24-Jun-2020 Instruction Type:Patient Education Patient Instructions Indication:Former smoker Start:24-Jun-2020 Instruction Type:Provider Instructions for Treatment Patient Instructions Indication:Former smoker Start:25-Mar-2020 Instruction Type:Provider Instructions for Treatment How to Access Health Informa tion Online using Patient Portal and [employer]rd [employer] Apps Indication:Former smoker Start:25-Mar-2020 Instruction Type:Patient Education How to Access Health Informa tion Online using Patient Portal and [employer]rd [employer] Apps Indication:Former smoker Start:27-Feb-2020 Instruction Type:Patient Education Patient Instructions Indication:Former smoker Start:27-Feb-2020 Instruction Type:Provider Instructions for Treatment How to access health informa tion online Indication:Former smoker Start:18-Feb-2020 Instruction Type:Patient Education How to access health informa tion online - Detail Indication:Former smoker Start:18-Feb-2020 Instruction Type:Patient Education Patient Instructions Indication:Former smoker Start:18-Feb-2020 Instruction Type:Provider Instructions for Treatment How to access health informa tion online Indication:Former smoker Start:11-Feb-2020 Instruction Type:Patient Education How to access health informa tion online - Detail Indication:Former smoker Start:11-Feb-2020 Instruction Type:Patient Education Patient Instructions Indication:Vitamin B12 deficiency Start:11-Feb-2020 Instruction Type:Provider Instructions for Treatment How to access health informa tion online Indication:Former smoker Start:28-Jan-2020 Instruction Type:Patient Education How to access health informa tion online - Detail Indication:Former smoker Start:28-Jan-2020 Instruction Type:Patient Education Patient Instructions Indication:Former smoker Start:28-Jan-2020 Instruction Type:Provider Instructions for Treatment How to access health informa tion online Indication:BMI 29.0-29.9,adult Start:24-Jan-2020 Instruction Type:Patient Education How to access health informa tion online - Detail Indication:BMI 29.0-29.9,adult Start:24-Jan-2020 Instruction Type:Patient Education Patient Instructions Indication:BMI 29.0-29.9,adult Start:24-Jan-2020 Instruction Type:Provider Instructions for Treatment How to access health informa tion online Indication:BMI 29.0-29.9,adult Start:09-Dec-2019 Instruction Type:Patient Education How to access health informa tion online - Detail Indication:BMI 29.0-29.9,adult Start:09-Dec-2019 Instruction Type:Patient Education Patient Instructions Indication:BMI 29.0-29.9,adult Start:09-Dec-2019 Instruction Type:Provider Instructions for Treatment How to access health informa tion online Indication:Former smoker Start:04-Dec-2019 Instruction Type:Patient Education How to access health informa tion online - Detail Indication:Former smoker Start:04-Dec-2019 Instruction Type:Patient Education Patient Instructions Indication:BMI 29.0-29.9,adult Start:04-Dec-2019 Instruction Type:Provider Instructions for Treatment How to access health informa tion online Indication:Former smoker Start:14-Oct-2019 Instruction Type:Patient Education How to access health informa tion online - Detail Indication:Former smoker Start:14-Oct-2019 Instruction Type:Patient Education Patient Instructions Indication:Former smoker Start:14-Oct-2019 Instruction Type:Provider Instructions for Treatment How to access health informa tion online Indication:Former smoker Start:11-Oct-2019 Instruction Type:Patient Education How to access health informa tion online - Detail Indication:Former smoker Start:11-Oct-2019 Instruction Type:Patient Education Patient Instructions Indication:Former smoker Start:11-Oct-2019 Instruction Type:Provider Instructions for Treatment How to access health informa tion online Indication:BMI 29.0-29.9,adult Start:13-Sep-2019 Instruction Type:Patient Education How to access health informa tion online - Detail Indication:BMI 29.0-29.9,adult Start:13-Sep-2019 Instruction Type:Patient Education Patient Instructions Indication:BMI 29.0-29.9,adult Start:13-Sep-2019 Instruction Type:Provider Instructions for Treatment How to access health informa tion online Indication:Former smoker Start:27-Aug-2019 Instruction Type:Patient Education How to access health informa tion online - Detail Indication:Former smoker Start:27-Aug-2019 Instruction Type:Patient Education Patient Instructions Indication:BMI 29.0-29.9,adult Start:27-Aug-2019 Instruction Type:Provider Instructions for Treatment How to access health informa tion online Indication:Former smoker Start:06-Aug-2019 Instruction Type:Patient Education How to access health informa tion online - Detail Indication:Former smoker Start:06-Aug-2019 Instruction Type:Patient Education Patient Instructions Indication:BMI 29.0-29.9,adult Start:06-Aug-2019 Instruction Type:Provider Instructions for Treatment How to access health informa tion online Indication:BMI 30.0-30.9,adult Start:02-Aug-2019 Instruction Type:Patient Education How to access health informa tion online - Detail Indication:BMI 30.0-30.9,adult Start:02-Aug-2019 Instruction Type:Patient Education Patient Instructions Indication:BMI 30.0-30.9,adult Start:02-Aug-2019 Instruction Type:Provider Instructions for Treatment How to access health informa tion online Indication:BMI 30.0-30.9,adult Start:06-Apr-2018 Instruction Type:Patient Education How to access health informa tion online - Detail Indication:BMI 30.0-30.9,adult Start:06-Apr-2018 Instruction Type:Patient Education Patient Instructions Indication:BMI 30.0-30.9,adult Start:06-Apr-2018 Instruction Type:Provider Instructions for Treatment How to access health informa tion online Indication:Former smoker Start:08-Dec-2017 Instruction Type:Patient Education How to access health informa tion online - Detail Indication:Former smoker Start:08-Dec-2017 Instruction Type:Patient Education Patient Instructions Indication:Former smoker Start:08-Dec-2017 Instruction Type:Provider Instructions for Treatment How to access health informa tion online Indication:Hypertension Start:28-Aug-2017 Instruction Type:Patient Education How to access health informa tion online - Detail Indication:Hypertension Start:28-Aug-2017 Instruction Type:Patient Education Patient Instructions Indication:Hypertension Start:28-Aug-2017 Instruction Type:Provider Instructions for Treatment How to access health informa tion online Indication:Hypertension Start:26-Jun-2017 Instruction Type:Patient Education How to access health informa tion online - Detail Indication:Hypertension Start:26-Jun-2017 Instruction Type:Patient Education Patient Instructions Indication:Hypertension Start:26-Jun-2017 Instruction Type:Provider Instructions for Treatment [facility]; [facility] Work Phone: Instructions* Name Dates Details Patient Instructions Indication:BMI 28.0-28.9,adult Start:05-May-2021 Instruction Type:Provider Instructions for Treatment How to Access Health Informa tion Online using Patient Portal and [employer]rd [employer] Apps Indication:BMI 28.0-28.9,adult Start:05-May-2021 Instruction Type:Patient Education Patient Instructions Indication:Former smoker Start:08-Mar-2021 Instruction Type:Provider Instructions for Treatment How to Access Health Informa tion Online using Patient Portal and [employer]rd [employer] Apps Indication:Former smoker Start:08-Mar-2021 Instruction Type:Patient Education Patient Instructions Indication:BMI 29.0-29.9,adult Start:18-Feb-2021 Instruction Type:Provider Instructions for Treatment How to Access Health Informa tion Online using Patient Portal and [employer] Apps Indication:BMI 29.0-29.9,adult Start:18-Feb-2021 Instruction Type:Patient Education Patient Instructions Indication:BMI 28.0-28.9,adult Start:07-Jan-2021 Instruction Type:Provider Instructions for Treatment How to Access Health Informa tion Online using Patient Portal and [employer]rd [employer] Apps Indication:BMI 28.0-28.9,adult Start:07-Jan-2021 Instruction Type:Patient Education Patient Instructions Indication:Former smoker Start:21-Oct-2020 Instruction Type:Provider Instructions for Treatment How to Access Health Informa tion Online using Patient Portal and [employer] Apps Indication:Former smoker Start:21-Oct-2020 Instruction Type:Patient Education Patient Instructions Indication:BMI 28.0-28.9,adult Start:30-Sep-2020 Instruction Type:Provider Instructions for Treatment How to Access Health Informa tion Online using Patient Portal and [employer] Apps Indication:BMI 28.0-28.9,adult Start:30-Sep-2020 Instruction Type:Patient Education Patient Instructions Indication:Former smoker Start:23-Sep-2020 Instruction Type:Provider Instructions for Treatment How to Access Health Informa tion Online using Patient Portal and [employer] Apps Indication:Hyperglycemia Start:23-Sep-2020 Instruction Type:Patient Education How to Access Health Informa tion Online using Patient Portal and [employer] Apps Indication:Former smoker Start:05-Aug-2020 Instruction Type:Patient Education Patient Instructions Indication:Former smoker Start:05-Aug-2020 Instruction Type:Provider Instructions for Treatment How to Access Health Informa tion Online using Patient Portal and [employer] Apps Indication:Former smoker Start:29-Jun-2020 Instruction Type:Patient Education Patient Instructions Indication:Former smoker Start:29-Jun-2020 Instruction Type:Provider Instructions for Treatment How to Access Health Informa tion Online using Patient Portal and [employer] Apps Indication:Former smoker Start:24-Jun-2020 Instruction Type:Patient Education Patient Instructions Indication:Former smoker Start:24-Jun-2020 Instruction Type:Provider Instructions for Treatment Patient Instructions Indication:Former smoker Start:25-Mar-2020 Instruction Type:Provider Instructions for Treatment How to Access Health Informa tion Online using Patient Portal and [employer] Apps Indication:Former smoker Start:25-Mar-2020 Instruction Type:Patient Education How to Access Health Informa tion Online using Patient Portal and [employer] Apps Indication:Former smoker Start:27-Feb-2020 Instruction Type:Patient Education Patient Instructions Indication:Former smoker Start:27-Feb-2020 Instruction Type:Provider Instructions for Treatment How to access health informa tion online Indication:Former smoker Start:18-Feb-2020 Instruction Type:Patient Education How to access health informa tion online - Detail Indication:Former smoker Start:18-Feb-2020 Instruction Type:Patient Education Patient Instructions Indication:Former smoker Start:18-Feb-2020 Instruction Type:Provider Instructions for Treatment How to access health informa tion online Indication:Former smoker Start:11-Feb-2020 Instruction Type:Patient Education How to access health informa tion online - Detail Indication:Former smoker Start:11-Feb-2020 Instruction Type:Patient Education Patient Instructions Indication:Vitamin B12 deficiency Start:11-Feb-2020 Instruction Type:Provider Instructions for Treatment How to access health informa tion online Indication:Former smoker Start:28-Jan-2020 Instruction Type:Patient Education How to access health informa tion online - Detail Indication:Former smoker Start:28-Jan-2020 Instruction Type:Patient Education Patient Instructions Indication:Former smoker Start:28-Jan-2020 Instruction Type:Provider Instructions for Treatment How to access health informa tion online Indication:BMI 29.0-29.9,adult Start:24-Jan-2020 Instruction Type:Patient Education How to access health informa tion online - Detail Indication:BMI 29.0-29.9,adult Start:24-Jan-2020 Instruction Type:Patient Education Patient Instructions Indication:BMI 29.0-29.9,adult Start:24-Jan-2020 Instruction Type:Provider Instructions for Treatment How to access health informa tion online Indication:BMI 29.0-29.9,adult Start:09-Dec-2019 Instruction Type:Patient Education How to access health informa tion online - Detail Indication:BMI 29.0-29.9,adult Start:09-Dec-2019 Instruction Type:Patient Education Patient Instructions Indication:BMI 29.0-29.9,adult Start:09-Dec-2019 Instruction Type:Provider Instructions for Treatment How to access health informa tion online Indication:Former smoker Start:04-Dec-2019 Instruction Type:Patient Education How to access health informa tion online - Detail Indication:Former smoker Start:04-Dec-2019 Instruction Type:Patient Education Patient Instructions Indication:BMI 29.0-29.9,adult Start:04-Dec-2019 Instruction Type:Provider Instructions for Treatment How to access health informa tion online Indication:Former smoker Start:14-Oct-2019 Instruction Type:Patient Education How to access health informa tion online - Detail Indication:Former smoker Start:14-Oct-2019 Instruction Type:Patient Education Patient Instructions Indication:Former smoker Start:14-Oct-2019 Instruction Type:Provider Instructions for Treatment How to access health informa tion online Indication:Former smoker Start:11-Oct-2019 Instruction Type:Patient Education How to access health informa tion online - Detail Indication:Former smoker Start:11-Oct-2019 Instruction Type:Patient Education Patient Instructions Indication:Former smoker Start:11-Oct-2019 Instruction Type:Provider Instructions for Treatment How to access health informa tion online Indication:BMI 29.0-29.9,adult Start:13-Sep-2019 Instruction Type:Patient Education How to access health informa tion online - Detail Indication:BMI 29.0-29.9,adult Start:13-Sep-2019 Instruction Type:Patient Education Patient Instructions Indication:BMI 29.0-29.9,adult Start:13-Sep-2019 Instruction Type:Provider Instructions for Treatment How to access health informa tion online Indication:Former smoker Start:27-Aug-2019 Instruction Type:Patient Education How to access health informa tion online - Detail Indication:Former smoker Start:27-Aug-2019 Instruction Type:Patient Education Patient Instructions Indication:BMI 29.0-29.9,adult Start:27-Aug-2019 Instruction Type:Provider Instructions for Treatment How to access health informa tion online Indication:Former smoker Start:06-Aug-2019 Instruction Type:Patient Education How to access health informa tion online - Detail Indication:Former smoker Start:06-Aug-2019 Instruction Type:Patient Education Patient Instructions Indication:BMI 29.0-29.9,adult Start:06-Aug-2019 Instruction Type:Provider Instructions for Treatment How to access health informa tion online Indication:BMI 30.0-30.9,adult Start:02-Aug-2019 Instruction Type:Patient Education How to access health informa tion online - Detail Indication:BMI 30.0-30.9,adult Start:02-Aug-2019 Instruction Type:Patient Education Patient Instructions Indication:BMI 30.0-30.9,adult Start:02-Aug-2019 Instruction Type:Provider Instructions for Treatment How to access health informa tion online Indication:BMI 30.0-30.9,adult Start:06-Apr-2018 Instruction Type:Patient Education How to access health informa tion online - Detail Indication:BMI 30.0-30.9,adult Start:06-Apr-2018 Instruction Type:Patient Education Patient Instructions Indication:BMI 30.0-30.9,adult Start:06-Apr-2018 Instruction Type:Provider Instructions for Treatment How to access health informa tion online Indication:Former smoker Start:08-Dec-2017 Instruction Type:Patient Education How to access health informa tion online - Detail Indication:Former smoker Start:08-Dec-2017 Instruction Type:Patient Education Patient Instructions Indication:Former smoker Start:08-Dec-2017 Instruction Type:Provider Instructions for Treatment How to access health informa tion online Indication:Hypertension Start:28-Aug-2017 Instruction Type:Patient Education How to access health informa tion online - Detail Indication:Hypertension Start:28-Aug-2017 Instruction Type:Patient Education Patient Instructions Indication:Hypertension Start:28-Aug-2017 Instruction Type:Provider Instructions for Treatment How to access health informa tion online Indication:Hypertension Start:26-Jun-2017 Instruction Type:Patient Education How to access health informa tion online - Detail Indication:Hypertension Start:26-Jun-2017 Instruction Type:Patient Education Patient Instructions Indication:Hypertension Start:26-Jun-2017 Instruction Type:Provider Instructions for Treatment [facility]; [facility] Work Phone: Instructions* Name Dates Details Patient Instructions Indication:BMI 28.0-28.9,adult Start:05-May-2021 Instruction Type:Provider Instructions for Treatment How to Access Health Informa tion Online using Patient Portal and [employer]rd [employer] Apps Indication:BMI 28.0-28.9,adult Start:05-May-2021 Instruction Type:Patient Education Patient Instructions Indication:Former smoker Start:08-Mar-2021 Instruction Type:Provider Instructions for Treatment How to Access Health Informa tion Online using Patient Portal and [employer]rd [employer] Apps Indication:Former smoker Start:08-Mar-2021 Instruction Type:Patient Education Patient Instructions Indication:BMI 29.0-29.9,adult Start:18-Feb-2021 Instruction Type:Provider Instructions for Treatment How to Access Health Informa tion Online using Patient Portal and [employer]rd [employer] Apps Indication:BMI 29.0-29.9,adult Start:18-Feb-2021 Instruction Type:Patient Education Patient Instructions Indication:BMI 28.0-28.9,adult Start:07-Jan-2021 Instruction Type:Provider Instructions for Treatment How to Access Health Informa tion Online using Patient Portal and [employer]rd [employer] Apps Indication:BMI 28.0-28.9,adult Start:07-Jan-2021 Instruction Type:Patient Education Patient Instructions Indication:Former smoker Start:21-Oct-2020 Instruction Type:Provider Instructions for Treatment How to Access Health Informa tion Online using Patient Portal and [employer] Apps Indication:Former smoker Start:21-Oct-2020 Instruction Type:Patient Education Patient Instructions Indication:BMI 28.0-28.9,adult Start:30-Sep-2020 Instruction Type:Provider Instructions for Treatment How to Access Health Informa tion Online using Patient Portal and [employer]rd [employer] Apps Indication:BMI 28.0-28.9,adult Start:30-Sep-2020 Instruction Type:Patient Education Patient Instructions Indication:Former smoker Start:23-Sep-2020 Instruction Type:Provider Instructions for Treatment How to Access Health Informa tion Online using Patient Portal and [employer] Apps Indication:Hyperglycemia Start:23-Sep-2020 Instruction Type:Patient Education How to Access Health Informa tion Online using Patient Portal and [employer] Apps Indication:Former smoker Start:05-Aug-2020 Instruction Type:Patient Education Patient Instructions Indication:Former smoker Start:05-Aug-2020 Instruction Type:Provider Instructions for Treatment How to Access Health Informa tion Online using Patient Portal and [employer] Apps Indication:Former smoker Start:29-Jun-2020 Instruction Type:Patient Education Patient Instructions Indication:Former smoker Start:29-Jun-2020 Instruction Type:Provider Instructions for Treatment How to Access Health Informa tion Online using Patient Portal and [employer] Apps Indication:Former smoker Start:24-Jun-2020 Instruction Type:Patient Education Patient Instructions Indication:Former smoker Start:24-Jun-2020 Instruction Type:Provider Instructions for Treatment Patient Instructions Indication:Former smoker Start:25-Mar-2020 Instruction Type:Provider Instructions for Treatment How to Access Health Informa tion Online using Patient Portal and [employer] Apps Indication:Former smoker Start:25-Mar-2020 Instruction Type:Patient Education How to Access Health Informa tion Online using Patient Portal and [employer] Apps Indication:Former smoker Start:27-Feb-2020 Instruction Type:Patient Education Patient Instructions Indication:Former smoker Start:27-Feb-2020 Instruction Type:Provider Instructions for Treatment How to access health informa tion online Indication:Former smoker Start:18-Feb-2020 Instruction Type:Patient Education How to access health informa tion online - Detail Indication:Former smoker Start:18-Feb-2020 Instruction Type:Patient Education Patient Instructions Indication:Former smoker Start:18-Feb-2020 Instruction Type:Provider Instructions for Treatment How to access health informa tion online Indication:Former smoker Start:11-Feb-2020 Instruction Type:Patient Education How to access health informa tion online - Detail Indication:Former smoker Start:11-Feb-2020 Instruction Type:Patient Education Patient Instructions Indication:Vitamin B12 deficiency Start:11-Feb-2020 Instruction Type:Provider Instructions for Treatment How to access health informa tion online Indication:Former smoker Start:28-Jan-2020 Instruction Type:Patient Education How to access health informa tion online - Detail Indication:Former smoker Start:28-Jan-2020 Instruction Type:Patient Education Patient Instructions Indication:Former smoker Start:28-Jan-2020 Instruction Type:Provider Instructions for Treatment How to access health informa tion online Indication:BMI 29.0-29.9,adult Start:24-Jan-2020 Instruction Type:Patient Education How to access health informa tion online - Detail Indication:BMI 29.0-29.9,adult Start:24-Jan-2020 Instruction Type:Patient Education Patient Instructions Indication:BMI 29.0-29.9,adult Start:24-Jan-2020 Instruction Type:Provider Instructions for Treatment How to access health informa tion online Indication:BMI 29.0-29.9,adult Start:09-Dec-2019 Instruction Type:Patient Education How to access health informa tion online - Detail Indication:BMI 29.0-29.9,adult Start:09-Dec-2019 Instruction Type:Patient Education Patient Instructions Indication:BMI 29.0-29.9,adult Start:09-Dec-2019 Instruction Type:Provider Instructions for Treatment How to access health informa tion online Indication:Former smoker Start:04-Dec-2019 Instruction Type:Patient Education How to access health informa tion online - Detail Indication:Former smoker Start:04-Dec-2019 Instruction Type:Patient Education Patient Instructions Indication:BMI 29.0-29.9,adult Start:04-Dec-2019 Instruction Type:Provider Instructions for Treatment How to access health informa tion online Indication:Former smoker Start:14-Oct-2019 Instruction Type:Patient Education How to access health informa tion online - Detail Indication:Former smoker Start:14-Oct-2019 Instruction Type:Patient Education Patient Instructions Indication:Former smoker Start:14-Oct-2019 Instruction Type:Provider Instructions for Treatment How to access health informa tion online Indication:Former smoker Start:11-Oct-2019 Instruction Type:Patient Education How to access health informa tion online - Detail Indication:Former smoker Start:11-Oct-2019 Instruction Type:Patient Education Patient Instructions Indication:Former smoker Start:11-Oct-2019 Instruction Type:Provider Instructions for Treatment How to access health informa tion online Indication:BMI 29.0-29.9,adult Start:13-Sep-2019 Instruction Type:Patient Education How to access health informa tion online - Detail Indication:BMI 29.0-29.9,adult Start:13-Sep-2019 Instruction Type:Patient Education Patient Instructions Indication:BMI 29.0-29.9,adult Start:13-Sep-2019 Instruction Type:Provider Instructions for Treatment How to access health informa tion online Indication:Former smoker Start:27-Aug-2019 Instruction Type:Patient Education How to access health informa tion online - Detail Indication:Former smoker Start:27-Aug-2019 Instruction Type:Patient Education Patient Instructions Indication:BMI 29.0-29.9,adult Start:27-Aug-2019 Instruction Type:Provider Instructions for Treatment How to access health informa tion online Indication:Former smoker Start:06-Aug-2019 Instruction Type:Patient Education How to access health informa tion online - Detail Indication:Former smoker Start:06-Aug-2019 Instruction Type:Patient Education Patient Instructions Indication:BMI 29.0-29.9,adult Start:06-Aug-2019 Instruction Type:Provider Instructions for Treatment How to access health informa tion online Indication:BMI 30.0-30.9,adult Start:02-Aug-2019 Instruction Type:Patient Education How to access health informa tion online - Detail Indication:BMI 30.0-30.9,adult Start:02-Aug-2019 Instruction Type:Patient Education Patient Instructions Indication:BMI 30.0-30.9,adult Start:02-Aug-2019 Instruction Type:Provider Instructions for Treatment How to access health informa tion online Indication:BMI 30.0-30.9,adult Start:06-Apr-2018 Instruction Type:Patient Education How to access health informa tion online - Detail Indication:BMI 30.0-30.9,adult Start:06-Apr-2018 Instruction Type:Patient Education Patient Instructions Indication:BMI 30.0-30.9,adult Start:06-Apr-2018 Instruction Type:Provider Instructions for Treatment How to access health informa tion online Indication:Former smoker Start:08-Dec-2017 Instruction Type:Patient Education How to access health informa tion online - Detail Indication:Former smoker Start:08-Dec-2017 Instruction Type:Patient Education Patient Instructions Indication:Former smoker Start:08-Dec-2017 Instruction Type:Provider Instructions for Treatment How to access health informa tion online Indication:Hypertension Start:28-Aug-2017 Instruction Type:Patient Education How to access health informa tion online - Detail Indication:Hypertension Start:28-Aug-2017 Instruction Type:Patient Education Patient Instructions Indication:Hypertension Start:28-Aug-2017 Instruction Type:Provider Instructions for Treatment How to access health informa tion online Indication:Hypertension Start:26-Jun-2017 Instruction Type:Patient Education How to access health informa tion online - Detail Indication:Hypertension Start:26-Jun-2017 Instruction Type:Patient Education Patient Instructions Indication:Hypertension Start:26-Jun-2017 Instruction Type:Provider Instructions for Treatment [facility]; [facility] Work Phone: Instructions* Name Dates Details Patient Instructions Indication:Former smoker Start:01-Sep-2021 Instruction Type:Provider Instructions for Treatment How to Access Health Informa tion Online using Patient Portal and [employer] Indication:Former smoker Start:01-Sep-2021 Instruction Type:Patient Education Patient Instructions Indication:BMI 28.0-28.9,adult Start:05-May-2021 Instruction Type:Provider Instructions for Treatment How to Access Health Informa tion Online using Patient Portal and [employer] Apps Indication:BMI 28.0-28.9,adult Start:05-May-2021 Instruction Type:Patient Education Patient Instructions Indication:Former smoker Start:08-Mar-2021 Instruction Type:Provider Instructions for Treatment How to Access Health Informa tion Online using Patient Portal and [employer] Apps Indication:Former smoker Start:08-Mar-2021 Instruction Type:Patient Education Patient Instructions Indication:BMI 29.0-29.9,adult Start:18-Feb-2021 Instruction Type:Provider Instructions for Treatment How to Access Health Informa tion Online using Patient Portal and [employer] Apps Indication:BMI 29.0-29.9,adult Start:18-Feb-2021 Instruction Type:Patient Education Patient Instructions Indication:BMI 28.0-28.9,adult Start:07-Jan-2021 Instruction Type:Provider Instructions for Treatment How to Access Health Informa tion Online using Patient Portal and [employer] Apps Indication:BMI 28.0-28.9,adult Start:07-Jan-2021 Instruction Type:Patient Education Patient Instructions Indication:Former smoker Start:21-Oct-2020 Instruction Type:Provider Instructions for Treatment How to Access Health Informa tion Online using Patient Portal and [employer] Apps Indication:Former smoker Start:21-Oct-2020 Instruction Type:Patient Education Patient Instructions Indication:BMI 28.0-28.9,adult Start:30-Sep-2020 Instruction Type:Provider Instructions for Treatment How to Access Health Informa tion Online using Patient Portal and [employer] Apps Indication:BMI 28.0-28.9,adult Start:30-Sep-2020 Instruction Type:Patient Education Patient Instructions Indication:Former smoker Start:23-Sep-2020 Instruction Type:Provider Instructions for Treatment How to Access Health Informa tion Online using Patient Portal and [employer] Apps Indication:Hyperglycemia Start:23-Sep-2020 Instruction Type:Patient Education How to Access Health Informa tion Online using Patient Portal and [employer] Apps Indication:Former smoker Start:05-Aug-2020 Instruction Type:Patient Education Patient Instructions Indication:Former smoker Start:05-Aug-2020 Instruction Type:Provider Instructions for Treatment How to Access Health Informa tion Online using Patient Portal and [employer] Apps Indication:Former smoker Start:29-Jun-2020 Instruction Type:Patient Education Patient Instructions Indication:Former smoker Start:29-Jun-2020 Instruction Type:Provider Instructions for Treatment How to Access Health Informa tion Online using Patient Portal and [employer] Apps Indication:Former smoker Start:24-Jun-2020 Instruction Type:Patient Education Patient Instructions Indication:Former smoker Start:24-Jun-2020 Instruction Type:Provider Instructions for Treatment Patient Instructions Indication:Former smoker Start:25-Mar-2020 Instruction Type:Provider Instructions for Treatment How to Access Health Informa tion Online using Patient Portal and [employer] Apps Indication:Former smoker Start:25-Mar-2020 Instruction Type:Patient Education How to Access Health Informa tion Online using Patient Portal and [employer] Apps Indication:Former smoker Start:27-Feb-2020 Instruction Type:Patient Education Patient Instructions Indication:Former smoker Start:27-Feb-2020 Instruction Type:Provider Instructions for Treatment How to access health informa tion online Indication:Former smoker Start:18-Feb-2020 Instruction Type:Patient Education How to access health informa tion online - Detail Indication:Former smoker Start:18-Feb-2020 Instruction Type:Patient Education Patient Instructions Indication:Former smoker Start:18-Feb-2020 Instruction Type:Provider Instructions for Treatment How to access health informa tion online Indication:Former smoker Start:11-Feb-2020 Instruction Type:Patient Education How to access health informa tion online - Detail Indication:Former smoker Start:11-Feb-2020 Instruction Type:Patient Education Patient Instructions Indication:Vitamin B12 deficiency Start:11-Feb-2020 Instruction Type:Provider Instructions for Treatment How to access health informa tion online Indication:Former smoker Start:28-Jan-2020 Instruction Type:Patient Education How to access health informa tion online - Detail Indication:Former smoker Start:28-Jan-2020 Instruction Type:Patient Education Patient Instructions Indication:Former smoker Start:28-Jan-2020 Instruction Type:Provider Instructions for Treatment How to access health informa tion online Indication:BMI 29.0-29.9,adult Start:24-Jan-2020 Instruction Type:Patient Education How to access health informa tion online - Detail Indication:BMI 29.0-29.9,adult Start:24-Jan-2020 Instruction Type:Patient Education Patient Instructions Indication:BMI 29.0-29.9,adult Start:24-Jan-2020 Instruction Type:Provider Instructions for Treatment How to access health informa tion online Indication:BMI 29.0-29.9,adult Start:09-Dec-2019 Instruction Type:Patient Education How to access health informa tion online - Detail Indication:BMI 29.0-29.9,adult Start:09-Dec-2019 Instruction Type:Patient Education Patient Instructions Indication:BMI 29.0-29.9,adult Start:09-Dec-2019 Instruction Type:Provider Instructions for Treatment How to access health informa tion online Indication:Former smoker Start:04-Dec-2019 Instruction Type:Patient Education How to access health informa tion online - Detail Indication:Former smoker Start:04-Dec-2019 Instruction Type:Patient Education Patient Instructions Indication:BMI 29.0-29.9,adult Start:04-Dec-2019 Instruction Type:Provider Instructions for Treatment How to access health informa tion online Indication:Former smoker Start:14-Oct-2019 Instruction Type:Patient Education How to access health informa tion online - Detail Indication:Former smoker Start:14-Oct-2019 Instruction Type:Patient Education Patient Instructions Indication:Former smoker Start:14-Oct-2019 Instruction Type:Provider Instructions for Treatment How to access health informa tion online Indication:Former smoker Start:11-Oct-2019 Instruction Type:Patient Education How to access health informa tion online - Detail Indication:Former smoker Start:11-Oct-2019 Instruction Type:Patient Education Patient Instructions Indication:Former smoker Start:11-Oct-2019 Instruction Type:Provider Instructions for Treatment How to access health informa tion online Indication:BMI 29.0-29.9,adult Start:13-Sep-2019 Instruction Type:Patient Education How to access health informa tion online - Detail Indication:BMI 29.0-29.9,adult Start:13-Sep-2019 Instruction Type:Patient Education Patient Instructions Indication:BMI 29.0-29.9,adult Start:13-Sep-2019 Instruction Type:Provider Instructions for Treatment How to access health informa tion online Indication:Former smoker Start:27-Aug-2019 Instruction Type:Patient Education How to access health informa tion online - Detail Indication:Former smoker Start:27-Aug-2019 Instruction Type:Patient Education Patient Instructions Indication:BMI 29.0-29.9,adult Start:27-Aug-2019 Instruction Type:Provider Instructions for Treatment How to access health informa tion online Indication:Former smoker Start:06-Aug-2019 Instruction Type:Patient Education How to access health informa tion online - Detail Indication:Former smoker Start:06-Aug-2019 Instruction Type:Patient Education Patient Instructions Indication:BMI 29.0-29.9,adult Start:06-Aug-2019 Instruction Type:Provider Instructions for Treatment How to access health informa tion online Indication:BMI 30.0-30.9,adult Start:02-Aug-2019 Instruction Type:Patient Education How to access health informa tion online - Detail Indication:BMI 30.0-30.9,adult Start:02-Aug-2019 Instruction Type:Patient Education Patient Instructions Indication:BMI 30.0-30.9,adult Start:02-Aug-2019 Instruction Type:Provider Instructions for Treatment How to access health informa tion online Indication:BMI 30.0-30.9,adult Start:06-Apr-2018 Instruction Type:Patient Education How to access health informa tion online - Detail Indication:BMI 30.0-30.9,adult Start:06-Apr-2018 Instruction Type:Patient Education Patient Instructions Indication:BMI 30.0-30.9,adult Start:06-Apr-2018 Instruction Type:Provider Instructions for Treatment How to access health informa tion online Indication:Former smoker Start:08-Dec-2017 Instruction Type:Patient Education How to access health informa tion online - Detail Indication:Former smoker Start:08-Dec-2017 Instruction Type:Patient Education Patient Instructions Indication:Former smoker Start:08-Dec-2017 Instruction Type:Provider Instructions for Treatment How to access health informa tion online Indication:Hypertension Start:28-Aug-2017 Instruction Type:Patient Education How to access health informa tion online - Detail Indication:Hypertension Start:28-Aug-2017 Instruction Type:Patient Education Patient Instructions Indication:Hypertension Start:28-Aug-2017 Instruction Type:Provider Instructions for Treatment How to access health informa tion online Indication:Hypertension Start:26-Jun-2017 Instruction Type:Patient Education How to access health informa tion online - Detail Indication:Hypertension Start:26-Jun-2017 Instruction Type:Patient Education Patient Instructions Indication:Hypertension Start:26-Jun-2017 Instruction Type:Provider Instructions for Treatment [facility]; [facility] Work Phone: Instructions* Name Dates Details Patient Instructions Indication:Former smoker Start:13-Oct-2021 Instruction Type:Provider Instructions for Treatment How to Access Health Informa tion Online using Patient Portal and [employer] Apps Indication:Former smoker Start:13-Oct-2021 Instruction Type:Patient Education Patient Instructions Indication:Former smoker Start:01-Sep-2021 Instruction Type:Provider Instructions for Treatment How to Access Health Informa tion Online using Patient Portal and [employer] Apps Indication:Former smoker Start:01-Sep-2021 Instruction Type:Patient Education Patient Instructions Indication:BMI 28.0-28.9,adult Start:05-May-2021 Instruction Type:Provider Instructions for Treatment How to Access Health Informa tion Online using Patient Portal and [employer] Apps Indication:BMI 28.0-28.9,adult Start:05-May-2021 Instruction Type:Patient Education Patient Instructions Indication:Former smoker Start:08-Mar-2021 Instruction Type:Provider Instructions for Treatment How to Access Health Informa tion Online using Patient Portal and [employer] Apps Indication:Former smoker Start:08-Mar-2021 Instruction Type:Patient Education Patient Instructions Indication:BMI 29.0-29.9,adult Start:18-Feb-2021 Instruction Type:Provider Instructions for Treatment How to Access Health Informa tion Online using Patient Portal and [employer]rd [employer] Apps Indication:BMI 29.0-29.9,adult Start:18-Feb-2021 Instruction Type:Patient Education Patient Instructions Indication:BMI 28.0-28.9,adult Start:07-Jan-2021 Instruction Type:Provider Instructions for Treatment How to Access Health Informa tion Online using Patient Portal and [employer] Apps Indication:BMI 28.0-28.9,adult Start:07-Jan-2021 Instruction Type:Patient Education Patient Instructions Indication:Former smoker Start:21-Oct-2020 Instruction Type:Provider Instructions for Treatment How to Access Health Informa tion Online using Patient Portal and [employer] Apps Indication:Former smoker Start:21-Oct-2020 Instruction Type:Patient Education Patient Instructions Indication:BMI 28.0-28.9,adult Start:30-Sep-2020 Instruction Type:Provider Instructions for Treatment How to Access Health Informa tion Online using Patient Portal and [employer] Apps Indication:BMI 28.0-28.9,adult Start:30-Sep-2020 Instruction Type:Patient Education Patient Instructions Indication:Former smoker Start:23-Sep-2020 Instruction Type:Provider Instructions for Treatment How to Access Health Informa tion Online using Patient Portal and [employer] Apps Indication:Hyperglycemia Start:23-Sep-2020 Instruction Type:Patient Education How to Access Health Informa tion Online using Patient Portal and [employer] Apps Indication:Former smoker Start:05-Aug-2020 Instruction Type:Patient Education Patient Instructions Indication:Former smoker Start:05-Aug-2020 Instruction Type:Provider Instructions for Treatment How to Access Health Informa tion Online using Patient Portal and [employer] Apps Indication:Former smoker Start:29-Jun-2020 Instruction Type:Patient Education Patient Instructions Indication:Former smoker Start:29-Jun-2020 Instruction Type:Provider Instructions for Treatment How to Access Health Informa tion Online using Patient Portal and [employer] Apps Indication:Former smoker Start:24-Jun-2020 Instruction Type:Patient Education Patient Instructions Indication:Former smoker Start:24-Jun-2020 Instruction Type:Provider Instructions for Treatment Patient Instructions Indication:Former smoker Start:25-Mar-2020 Instruction Type:Provider Instructions for Treatment How to Access Health Informa tion Online using Patient Portal and [employer] Apps Indication:Former smoker Start:25-Mar-2020 Instruction Type:Patient Education How to Access Health Informa tion Online using Patient Portal and [employer] Apps Indication:Former smoker Start:27-Feb-2020 Instruction Type:Patient Education Patient Instructions Indication:Former smoker Start:27-Feb-2020 Instruction Type:Provider Instructions for Treatment How to access health informa tion online Indication:Former smoker Start:18-Feb-2020 Instruction Type:Patient Education How to access health informa tion online - Detail Indication:Former smoker Start:18-Feb-2020 Instruction Type:Patient Education Patient Instructions Indication:Former smoker Start:18-Feb-2020 Instruction Type:Provider Instructions for Treatment How to access health informa tion online Indication:Former smoker Start:11-Feb-2020 Instruction Type:Patient Education How to access health informa tion online - Detail Indication:Former smoker Start:11-Feb-2020 Instruction Type:Patient Education Patient Instructions Indication:Vitamin B12 deficiency Start:11-Feb-2020 Instruction Type:Provider Instructions for Treatment How to access health informa tion online Indication:Former smoker Start:28-Jan-2020 Instruction Type:Patient Education How to access health informa tion online - Detail Indication:Former smoker Start:28-Jan-2020 Instruction Type:Patient Education Patient Instructions Indication:Former smoker Start:28-Jan-2020 Instruction Type:Provider Instructions for Treatment How to access health informa tion online Indication:BMI 29.0-29.9,adult Start:24-Jan-2020 Instruction Type:Patient Education How to access health informa tion online - Detail Indication:BMI 29.0-29.9,adult Start:24-Jan-2020 Instruction Type:Patient Education Patient Instructions Indication:BMI 29.0-29.9,adult Start:24-Jan-2020 Instruction Type:Provider Instructions for Treatment How to access health informa tion online Indication:BMI 29.0-29.9,adult Start:09-Dec-2019 Instruction Type:Patient Education How to access health informa tion online - Detail Indication:BMI 29.0-29.9,adult Start:09-Dec-2019 Instruction Type:Patient Education Patient Instructions Indication:BMI 29.0-29.9,adult Start:09-Dec-2019 Instruction Type:Provider Instructions for Treatment How to access health informa tion online Indication:Former smoker Start:04-Dec-2019 Instruction Type:Patient Education How to access health informa tion online - Detail Indication:Former smoker Start:04-Dec-2019 Instruction Type:Patient Education Patient Instructions Indication:BMI 29.0-29.9,adult Start:04-Dec-2019 Instruction Type:Provider Instructions for Treatment How to access health informa tion online Indication:Former smoker Start:14-Oct-2019 Instruction Type:Patient Education How to access health informa tion online - Detail Indication:Former smoker Start:14-Oct-2019 Instruction Type:Patient Education Patient Instructions Indication:Former smoker Start:14-Oct-2019 Instruction Type:Provider Instructions for Treatment How to access health informa tion online Indication:Former smoker Start:11-Oct-2019 Instruction Type:Patient Education How to access health informa tion online - Detail Indication:Former smoker Start:11-Oct-2019 Instruction Type:Patient Education Patient Instructions Indication:Former smoker Start:11-Oct-2019 Instruction Type:Provider Instructions for Treatment How to access health informa tion online Indication:BMI 29.0-29.9,adult Start:13-Sep-2019 Instruction Type:Patient Education How to access health informa tion online - Detail Indication:BMI 29.0-29.9,adult Start:13-Sep-2019 Instruction Type:Patient Education Patient Instructions Indication:BMI 29.0-29.9,adult Start:13-Sep-2019 Instruction Type:Provider Instructions for Treatment How to access health informa tion online Indication:Former smoker Start:27-Aug-2019 Instruction Type:Patient Education How to access health informa tion online - Detail Indication:Former smoker Start:27-Aug-2019 Instruction Type:Patient Education Patient Instructions Indication:BMI 29.0-29.9,adult Start:27-Aug-2019 Instruction Type:Provider Instructions for Treatment How to access health informa tion online Indication:Former smoker Start:06-Aug-2019 Instruction Type:Patient Education How to access health informa tion online - Detail Indication:Former smoker Start:06-Aug-2019 Instruction Type:Patient Education Patient Instructions Indication:BMI 29.0-29.9,adult Start:06-Aug-2019 Instruction Type:Provider Instructions for Treatment How to access health informa tion online Indication:BMI 30.0-30.9,adult Start:02-Aug-2019 Instruction Type:Patient Education How to access health informa tion online - Detail Indication:BMI 30.0-30.9,adult Start:02-Aug-2019 Instruction Type:Patient Education Patient Instructions Indication:BMI 30.0-30.9,adult Start:02-Aug-2019 Instruction Type:Provider Instructions for Treatment How to access health informa tion online Indication:BMI 30.0-30.9,adult Start:06-Apr-2018 Instruction Type:Patient Education How to access health informa tion online - Detail Indication:BMI 30.0-30.9,adult Start:06-Apr-2018 Instruction Type:Patient Education Patient Instructions Indication:BMI 30.0-30.9,adult Start:06-Apr-2018 Instruction Type:Provider Instructions for Treatment How to access health informa tion online Indication:Former smoker Start:08-Dec-2017 Instruction Type:Patient Education How to access health informa tion online - Detail Indication:Former smoker Start:08-Dec-2017 Instruction Type:Patient Education Patient Instructions Indication:Former smoker Start:08-Dec-2017 Instruction Type:Provider Instructions for Treatment How to access health informa tion online Indication:Hypertension Start:28-Aug-2017 Instruction Type:Patient Education How to access health informa tion online - Detail Indication:Hypertension Start:28-Aug-2017 Instruction Type:Patient Education Patient Instructions Indication:Hypertension Start:28-Aug-2017 Instruction Type:Provider Instructions for Treatment How to access health informa tion online Indication:Hypertension Start:26-Jun-2017 Instruction Type:Patient Education How to access health informa tion online - Detail Indication:Hypertension Start:26-Jun-2017 Instruction Type:Patient Education Patient Instructions Indication:Hypertension Start:26-Jun-2017 Instruction Type:Provider Instructions for Treatment [facility]; [facility] Work Phone: Instructions* Name Dates Details Patient Instructions Indication:Former smoker Start:13-Oct-2021 Instruction Type:Provider Instructions for Treatment How to Access Health Informa tion Online using Patient Portal and [employer] Apps Indication:Former smoker Start:13-Oct-2021 Instruction Type:Patient Education Patient Instructions Indication:Former smoker Start:01-Sep-2021 Instruction Type:Provider Instructions for Treatment How to Access Health Informa tion Online using Patient Portal and [employer] Apps Indication:Former smoker Start:01-Sep-2021 Instruction Type:Patient Education Patient Instructions Indication:BMI 28.0-28.9,adult Start:05-May-2021 Instruction Type:Provider Instructions for Treatment How to Access Health Informa tion Online using Patient Portal and [employer] Apps Indication:BMI 28.0-28.9,adult Start:05-May-2021 Instruction Type:Patient Education Patient Instructions Indication:Former smoker Start:08-Mar-2021 Instruction Type:Provider Instructions for Treatment How to Access Health Informa tion Online using Patient Portal and [employer]rd [employer] Apps Indication:Former smoker Start:08-Mar-2021 Instruction Type:Patient Education Patient Instructions Indication:BMI 29.0-29.9,adult Start:18-Feb-2021 Instruction Type:Provider Instructions for Treatment How to Access Health Informa tion Online using Patient Portal and [employer]rd [employer] Apps Indication:BMI 29.0-29.9,adult Start:18-Feb-2021 Instruction Type:Patient Education Patient Instructions Indication:BMI 28.0-28.9,adult Start:07-Jan-2021 Instruction Type:Provider Instructions for Treatment How to Access Health Informa tion Online using Patient Portal and [employer]rd [employer] Apps Indication:BMI 28.0-28.9,adult Start:07-Jan-2021 Instruction Type:Patient Education Patient Instructions Indication:Former smoker Start:21-Oct-2020 Instruction Type:Provider Instructions for Treatment How to Access Health Informa tion Online using Patient Portal and [employer]rd [employer] Apps Indication:Former smoker Start:21-Oct-2020 Instruction Type:Patient Education Patient Instructions Indication:BMI 28.0-28.9,adult Start:30-Sep-2020 Instruction Type:Provider Instructions for Treatment How to Access Health Informa tion Online using Patient Portal and [employer]rd [employer] Apps Indication:BMI 28.0-28.9,adult Start:30-Sep-2020 Instruction Type:Patient Education Patient Instructions Indication:Former smoker Start:23-Sep-2020 Instruction Type:Provider Instructions for Treatment How to Access Health Informa tion Online using Patient Portal and [employer]rd [employer] Apps Indication:Hyperglycemia Start:23-Sep-2020 Instruction Type:Patient Education How to Access Health Informa tion Online using Patient Portal and [employer]rd [employer] Apps Indication:Former smoker Start:05-Aug-2020 Instruction Type:Patient Education Patient Instructions Indication:Former smoker Start:05-Aug-2020 Instruction Type:Provider Instructions for Treatment How to Access Health Informa tion Online using Patient Portal and [employer]rd [employer] Apps Indication:Former smoker Start:29-Jun-2020 Instruction Type:Patient Education Patient Instructions Indication:Former smoker Start:29-Jun-2020 Instruction Type:Provider Instructions for Treatment How to Access Health Informa tion Online using Patient Portal and [employer]rd [employer] Apps Indication:Former smoker Start:24-Jun-2020 Instruction Type:Patient Education Patient Instructions Indication:Former smoker Start:24-Jun-2020 Instruction Type:Provider Instructions for Treatment Patient Instructions Indication:Former smoker Start:25-Mar-2020 Instruction Type:Provider Instructions for Treatment How to Access Health Informa tion Online using Patient Portal and [employer]rd [employer] Apps Indication:Former smoker Start:25-Mar-2020 Instruction Type:Patient Education How to Access Health Informa tion Online using Patient Portal and [employer]rd [employer] Apps Indication:Former smoker Start:27-Feb-2020 Instruction Type:Patient Education Patient Instructions Indication:Former smoker Start:27-Feb-2020 Instruction Type:Provider Instructions for Treatment How to access health informa tion online Indication:Former smoker Start:18-Feb-2020 Instruction Type:Patient Education How to access health informa tion online - Detail Indication:Former smoker Start:18-Feb-2020 Instruction Type:Patient Education Patient Instructions Indication:Former smoker Start:18-Feb-2020 Instruction Type:Provider Instructions for Treatment How to access health informa tion online Indication:Former smoker Start:11-Feb-2020 Instruction Type:Patient Education How to access health informa tion online - Detail Indication:Former smoker Start:11-Feb-2020 Instruction Type:Patient Education Patient Instructions Indication:Vitamin B12 deficiency Start:11-Feb-2020 Instruction Type:Provider Instructions for Treatment How to access health informa tion online Indication:Former smoker Start:28-Jan-2020 Instruction Type:Patient Education How to access health informa tion online - Detail Indication:Former smoker Start:28-Jan-2020 Instruction Type:Patient Education Patient Instructions Indication:Former smoker Start:28-Jan-2020 Instruction Type:Provider Instructions for Treatment How to access health informa tion online Indication:BMI 29.0-29.9,adult Start:24-Jan-2020 Instruction Type:Patient Education How to access health informa tion online - Detail Indication:BMI 29.0-29.9,adult Start:24-Jan-2020 Instruction Type:Patient Education Patient Instructions Indication:BMI 29.0-29.9,adult Start:24-Jan-2020 Instruction Type:Provider Instructions for Treatment How to access health informa tion online Indication:BMI 29.0-29.9,adult Start:09-Dec-2019 Instruction Type:Patient Education How to access health informa tion online - Detail Indication:BMI 29.0-29.9,adult Start:09-Dec-2019 Instruction Type:Patient Education Patient Instructions Indication:BMI 29.0-29.9,adult Start:09-Dec-2019 Instruction Type:Provider Instructions for Treatment How to access health informa tion online Indication:Former smoker Start:04-Dec-2019 Instruction Type:Patient Education How to access health informa tion online - Detail Indication:Former smoker Start:04-Dec-2019 Instruction Type:Patient Education Patient Instructions Indication:BMI 29.0-29.9,adult Start:04-Dec-2019 Instruction Type:Provider Instructions for Treatment How to access health informa tion online Indication:Former smoker Start:14-Oct-2019 Instruction Type:Patient Education How to access health informa tion online - Detail Indication:Former smoker Start:14-Oct-2019 Instruction Type:Patient Education Patient Instructions Indication:Former smoker Start:14-Oct-2019 Instruction Type:Provider Instructions for Treatment How to access health informa tion online Indication:Former smoker Start:11-Oct-2019 Instruction Type:Patient Education How to access health informa tion online - Detail Indication:Former smoker Start:11-Oct-2019 Instruction Type:Patient Education Patient Instructions Indication:Former smoker Start:11-Oct-2019 Instruction Type:Provider Instructions for Treatment How to access health informa tion online Indication:BMI 29.0-29.9,adult Start:13-Sep-2019 Instruction Type:Patient Education How to access health informa tion online - Detail Indication:BMI 29.0-29.9,adult Start:13-Sep-2019 Instruction Type:Patient Education Patient Instructions Indication:BMI 29.0-29.9,adult Start:13-Sep-2019 Instruction Type:Provider Instructions for Treatment How to access health informa tion online Indication:Former smoker Start:27-Aug-2019 Instruction Type:Patient Education How to access health informa tion online - Detail Indication:Former smoker Start:27-Aug-2019 Instruction Type:Patient Education Patient Instructions Indication:BMI 29.0-29.9,adult Start:27-Aug-2019 Instruction Type:Provider Instructions for Treatment How to access health informa tion online Indication:Former smoker Start:06-Aug-2019 Instruction Type:Patient Education How to access health informa tion online - Detail Indication:Former smoker Start:06-Aug-2019 Instruction Type:Patient Education Patient Instructions Indication:BMI 29.0-29.9,adult Start:06-Aug-2019 Instruction Type:Provider Instructions for Treatment How to access health informa tion online Indication:BMI 30.0-30.9,adult Start:02-Aug-2019 Instruction Type:Patient Education How to access health informa tion online - Detail Indication:BMI 30.0-30.9,adult Start:02-Aug-2019 Instruction Type:Patient Education Patient Instructions Indication:BMI 30.0-30.9,adult Start:02-Aug-2019 Instruction Type:Provider Instructions for Treatment How to access health informa tion online Indication:BMI 30.0-30.9,adult Start:06-Apr-2018 Instruction Type:Patient Education How to access health informa tion online - Detail Indication:BMI 30.0-30.9,adult Start:06-Apr-2018 Instruction Type:Patient Education Patient Instructions Indication:BMI 30.0-30.9,adult Start:06-Apr-2018 Instruction Type:Provider Instructions for Treatment How to access health informa tion online Indication:Former smoker Start:08-Dec-2017 Instruction Type:Patient Education How to access health informa tion online - Detail Indication:Former smoker Start:08-Dec-2017 Instruction Type:Patient Education Patient Instructions Indication:Former smoker Start:08-Dec-2017 Instruction Type:Provider Instructions for Treatment How to access health informa tion online Indication:Hypertension Start:28-Aug-2017 Instruction Type:Patient Education How to access health informa tion online - Detail Indication:Hypertension Start:28-Aug-2017 Instruction Type:Patient Education Patient Instructions Indication:Hypertension Start:28-Aug-2017 Instruction Type:Provider Instructions for Treatment How to access health informa tion online Indication:Hypertension Start:26-Jun-2017 Instruction Type:Patient Education How to access health informa tion online - Detail Indication:Hypertension Start:26-Jun-2017 Instruction Type:Patient Education Patient Instructions Indication:Hypertension Start:26-Jun-2017 Instruction Type:Provider Instructions for Treatment [facility]; [facility] Work Phone: Instructions* Name Dates Details Patient Instructions Indication:Former smoker Start:13-Oct-2021 Instruction Type:Provider Instructions for Treatment How to Access Health Informa tion Online using Patient Portal and [employer]rd [employer] Apps Indication:Former smoker Start:13-Oct-2021 Instruction Type:Patient Education Patient Instructions Indication:Former smoker Start:01-Sep-2021 Instruction Type:Provider Instructions for Treatment How to Access Health Informa tion Online using Patient Portal and [employer]rd [employer] Apps Indication:Former smoker Start:01-Sep-2021 Instruction Type:Patient Education Patient Instructions Indication:BMI 28.0-28.9,adult Start:05-May-2021 Instruction Type:Provider Instructions for Treatment How to Access Health Informa tion Online using Patient Portal and [employer]rd [employer] Apps Indication:BMI 28.0-28.9,adult Start:05-May-2021 Instruction Type:Patient Education Patient Instructions Indication:Former smoker Start:08-Mar-2021 Instruction Type:Provider Instructions for Treatment How to Access Health Informa tion Online using Patient Portal and [employer] Apps Indication:Former smoker Start:08-Mar-2021 Instruction Type:Patient Education Patient Instructions Indication:BMI 29.0-29.9,adult Start:18-Feb-2021 Instruction Type:Provider Instructions for Treatment How to Access Health Informa tion Online using Patient Portal and [employer]rd [employer] Apps Indication:BMI 29.0-29.9,adult Start:18-Feb-2021 Instruction Type:Patient Education Patient Instructions Indication:BMI 28.0-28.9,adult Start:07-Jan-2021 Instruction Type:Provider Instructions for Treatment How to Access Health Informa tion Online using Patient Portal and [employer]rd [employer] Apps Indication:BMI 28.0-28.9,adult Start:07-Jan-2021 Instruction Type:Patient Education Patient Instructions Indication:Former smoker Start:21-Oct-2020 Instruction Type:Provider Instructions for Treatment How to Access Health Informa tion Online using Patient Portal and [employer] Apps Indication:Former smoker Start:21-Oct-2020 Instruction Type:Patient Education Patient Instructions Indication:BMI 28.0-28.9,adult Start:30-Sep-2020 Instruction Type:Provider Instructions for Treatment How to Access Health Informa tion Online using Patient Portal and [employer] Apps Indication:BMI 28.0-28.9,adult Start:30-Sep-2020 Instruction Type:Patient Education Patient Instructions Indication:Former smoker Start:23-Sep-2020 Instruction Type:Provider Instructions for Treatment How to Access Health Informa tion Online using Patient Portal and [employer]rd [employer] Apps Indication:Hyperglycemia Start:23-Sep-2020 Instruction Type:Patient Education How to Access Health Informa tion Online using Patient Portal and [employer] Apps Indication:Former smoker Start:05-Aug-2020 Instruction Type:Patient Education Patient Instructions Indication:Former smoker Start:05-Aug-2020 Instruction Type:Provider Instructions for Treatment How to Access Health Informa tion Online using Patient Portal and [employer] Apps Indication:Former smoker Start:29-Jun-2020 Instruction Type:Patient Education Patient Instructions Indication:Former smoker Start:29-Jun-2020 Instruction Type:Provider Instructions for Treatment How to Access Health Informa tion Online using Patient Portal and [employer] Apps Indication:Former smoker Start:24-Jun-2020 Instruction Type:Patient Education Patient Instructions Indication:Former smoker Start:24-Jun-2020 Instruction Type:Provider Instructions for Treatment Patient Instructions Indication:Former smoker Start:25-Mar-2020 Instruction Type:Provider Instructions for Treatment How to Access Health Informa tion Online using Patient Portal and [employer] Apps Indication:Former smoker Start:25-Mar-2020 Instruction Type:Patient Education How to Access Health Informa tion Online using Patient Portal and [employer] Apps Indication:Former smoker Start:27-Feb-2020 Instruction Type:Patient Education Patient Instructions Indication:Former smoker Start:27-Feb-2020 Instruction Type:Provider Instructions for Treatment How to access health informa tion online Indication:Former smoker Start:18-Feb-2020 Instruction Type:Patient Education How to access health informa tion online - Detail Indication:Former smoker Start:18-Feb-2020 Instruction Type:Patient Education Patient Instructions Indication:Former smoker Start:18-Feb-2020 Instruction Type:Provider Instructions for Treatment How to access health informa tion online Indication:Former smoker Start:11-Feb-2020 Instruction Type:Patient Education How to access health informa tion online - Detail Indication:Former smoker Start:11-Feb-2020 Instruction Type:Patient Education Patient Instructions Indication:Vitamin B12 deficiency Start:11-Feb-2020 Instruction Type:Provider Instructions for Treatment How to access health informa tion online Indication:Former smoker Start:28-Jan-2020 Instruction Type:Patient Education How to access health informa tion online - Detail Indication:Former smoker Start:28-Jan-2020 Instruction Type:Patient Education Patient Instructions Indication:Former smoker Start:28-Jan-2020 Instruction Type:Provider Instructions for Treatment How to access health informa tion online Indication:BMI 29.0-29.9,adult Start:24-Jan-2020 Instruction Type:Patient Education How to access health informa tion online - Detail Indication:BMI 29.0-29.9,adult Start:24-Jan-2020 Instruction Type:Patient Education Patient Instructions Indication:BMI 29.0-29.9,adult Start:24-Jan-2020 Instruction Type:Provider Instructions for Treatment How to access health informa tion online Indication:BMI 29.0-29.9,adult Start:09-Dec-2019 Instruction Type:Patient Education How to access health informa tion online - Detail Indication:BMI 29.0-29.9,adult Start:09-Dec-2019 Instruction Type:Patient Education Patient Instructions Indication:BMI 29.0-29.9,adult Start:09-Dec-2019 Instruction Type:Provider Instructions for Treatment How to access health informa tion online Indication:Former smoker Start:04-Dec-2019 Instruction Type:Patient Education How to access health informa tion online - Detail Indication:Former smoker Start:04-Dec-2019 Instruction Type:Patient Education Patient Instructions Indication:BMI 29.0-29.9,adult Start:04-Dec-2019 Instruction Type:Provider Instructions for Treatment How to access health informa tion online Indication:Former smoker Start:14-Oct-2019 Instruction Type:Patient Education How to access health informa tion online - Detail Indication:Former smoker Start:14-Oct-2019 Instruction Type:Patient Education Patient Instructions Indication:Former smoker Start:14-Oct-2019 Instruction Type:Provider Instructions for Treatment How to access health informa tion online Indication:Former smoker Start:11-Oct-2019 Instruction Type:Patient Education How to access health informa tion online - Detail Indication:Former smoker Start:11-Oct-2019 Instruction Type:Patient Education Patient Instructions Indication:Former smoker Start:11-Oct-2019 Instruction Type:Provider Instructions for Treatment How to access health informa tion online Indication:BMI 29.0-29.9,adult Start:13-Sep-2019 Instruction Type:Patient Education How to access health informa tion online - Detail Indication:BMI 29.0-29.9,adult Start:13-Sep-2019 Instruction Type:Patient Education Patient Instructions Indication:BMI 29.0-29.9,adult Start:13-Sep-2019 Instruction Type:Provider Instructions for Treatment How to access health informa tion online Indication:Former smoker Start:27-Aug-2019 Instruction Type:Patient Education How to access health informa tion online - Detail Indication:Former smoker Start:27-Aug-2019 Instruction Type:Patient Education Patient Instructions Indication:BMI 29.0-29.9,adult Start:27-Aug-2019 Instruction Type:Provider Instructions for Treatment How to access health informa tion online Indication:Former smoker Start:06-Aug-2019 Instruction Type:Patient Education How to access health informa tion online - Detail Indication:Former smoker Start:06-Aug-2019 Instruction Type:Patient Education Patient Instructions Indication:BMI 29.0-29.9,adult Start:06-Aug-2019 Instruction Type:Provider Instructions for Treatment How to access health informa tion online Indication:BMI 30.0-30.9,adult Start:02-Aug-2019 Instruction Type:Patient Education How to access health informa tion online - Detail Indication:BMI 30.0-30.9,adult Start:02-Aug-2019 Instruction Type:Patient Education Patient Instructions Indication:BMI 30.0-30.9,adult Start:02-Aug-2019 Instruction Type:Provider Instructions for Treatment How to access health informa tion online Indication:BMI 30.0-30.9,adult Start:06-Apr-2018 Instruction Type:Patient Education How to access health informa tion online - Detail Indication:BMI 30.0-30.9,adult Start:06-Apr-2018 Instruction Type:Patient Education Patient Instructions Indication:BMI 30.0-30.9,adult Start:06-Apr-2018 Instruction Type:Provider Instructions for Treatment How to access health informa tion online Indication:Former smoker Start:08-Dec-2017 Instruction Type:Patient Education How to access health informa tion online - Detail Indication:Former smoker Start:08-Dec-2017 Instruction Type:Patient Education Patient Instructions Indication:Former smoker Start:08-Dec-2017 Instruction Type:Provider Instructions for Treatment How to access health informa tion online Indication:Hypertension Start:28-Aug-2017 Instruction Type:Patient Education How to access health informa tion online - Detail Indication:Hypertension Start:28-Aug-2017 Instruction Type:Patient Education Patient Instructions Indication:Hypertension Start:28-Aug-2017 Instruction Type:Provider Instructions for Treatment How to access health informa tion online Indication:Hypertension Start:26-Jun-2017 Instruction Type:Patient Education How to access health informa tion online - Detail Indication:Hypertension Start:26-Jun-2017 Instruction Type:Patient Education Patient Instructions Indication:Hypertension Start:26-Jun-2017 Instruction Type:Provider Instructions for Treatment [facility]; [facility] Work Phone: Instructions* Name Dates Details Patient Instructions Indication:Former smoker Start:13-Oct-2021 Instruction Type:Provider Instructions for Treatment How to Access Health Informa tion Online using Patient Portal and [employer]rd [employer] Apps Indication:Former smoker Start:13-Oct-2021 Instruction Type:Patient Education Patient Instructions Indication:Former smoker Start:01-Sep-2021 Instruction Type:Provider Instructions for Treatment How to Access Health Informa tion Online using Patient Portal and [employer]rd [employer] Apps Indication:Former smoker Start:01-Sep-2021 Instruction Type:Patient Education Patient Instructions Indication:BMI 28.0-28.9,adult Start:05-May-2021 Instruction Type:Provider Instructions for Treatment How to Access Health Informa tion Online using Patient Portal and [employer]rd [employer] Apps Indication:BMI 28.0-28.9,adult Start:05-May-2021 Instruction Type:Patient Education Patient Instructions Indication:Former smoker Start:08-Mar-2021 Instruction Type:Provider Instructions for Treatment How to Access Health Informa tion Online using Patient Portal and [employer]rd [employer] Apps Indication:Former smoker Start:08-Mar-2021 Instruction Type:Patient Education Patient Instructions Indication:BMI 29.0-29.9,adult Start:18-Feb-2021 Instruction Type:Provider Instructions for Treatment How to Access Health Informa tion Online using Patient Portal and [employer]rd [employer] Apps Indication:BMI 29.0-29.9,adult Start:18-Feb-2021 Instruction Type:Patient Education Patient Instructions Indication:BMI 28.0-28.9,adult Start:07-Jan-2021 Instruction Type:Provider Instructions for Treatment How to Access Health Informa tion Online using Patient Portal and [employer]rd [employer] Apps Indication:BMI 28.0-28.9,adult Start:07-Jan-2021 Instruction Type:Patient Education Patient Instructions Indication:Former smoker Start:21-Oct-2020 Instruction Type:Provider Instructions for Treatment How to Access Health Informa tion Online using Patient Portal and [employer] Apps Indication:Former smoker Start:21-Oct-2020 Instruction Type:Patient Education Patient Instructions Indication:BMI 28.0-28.9,adult Start:30-Sep-2020 Instruction Type:Provider Instructions for Treatment How to Access Health Informa tion Online using Patient Portal and [employer] Apps Indication:BMI 28.0-28.9,adult Start:30-Sep-2020 Instruction Type:Patient Education Patient Instructions Indication:Former smoker Start:23-Sep-2020 Instruction Type:Provider Instructions for Treatment How to Access Health Informa tion Online using Patient Portal and [employer] Apps Indication:Hyperglycemia Start:23-Sep-2020 Instruction Type:Patient Education How to Access Health Informa tion Online using Patient Portal and [employer] Apps Indication:Former smoker Start:05-Aug-2020 Instruction Type:Patient Education Patient Instructions Indication:Former smoker Start:05-Aug-2020 Instruction Type:Provider Instructions for Treatment How to Access Health Informa tion Online using Patient Portal and [employer] Apps Indication:Former smoker Start:29-Jun-2020 Instruction Type:Patient Education Patient Instructions Indication:Former smoker Start:29-Jun-2020 Instruction Type:Provider Instructions for Treatment How to Access Health Informa tion Online using Patient Portal and [employer] Apps Indication:Former smoker Start:24-Jun-2020 Instruction Type:Patient Education Patient Instructions Indication:Former smoker Start:24-Jun-2020 Instruction Type:Provider Instructions for Treatment Patient Instructions Indication:Former smoker Start:25-Mar-2020 Instruction Type:Provider Instructions for Treatment How to Access Health Informa tion Online using Patient Portal and [employer] Apps Indication:Former smoker Start:25-Mar-2020 Instruction Type:Patient Education How to Access Health Informa tion Online using Patient Portal and [employer] Apps Indication:Former smoker Start:27-Feb-2020 Instruction Type:Patient Education Patient Instructions Indication:Former smoker Start:27-Feb-2020 Instruction Type:Provider Instructions for Treatment How to access health informa tion online Indication:Former smoker Start:18-Feb-2020 Instruction Type:Patient Education How to access health informa tion online - Detail Indication:Former smoker Start:18-Feb-2020 Instruction Type:Patient Education Patient Instructions Indication:Former smoker Start:18-Feb-2020 Instruction Type:Provider Instructions for Treatment How to access health informa tion online Indication:Former smoker Start:11-Feb-2020 Instruction Type:Patient Education How to access health informa tion online - Detail Indication:Former smoker Start:11-Feb-2020 Instruction Type:Patient Education Patient Instructions Indication:Vitamin B12 deficiency Start:11-Feb-2020 Instruction Type:Provider Instructions for Treatment How to access health informa tion online Indication:Former smoker Start:28-Jan-2020 Instruction Type:Patient Education How to access health informa tion online - Detail Indication:Former smoker Start:28-Jan-2020 Instruction Type:Patient Education Patient Instructions Indication:Former smoker Start:28-Jan-2020 Instruction Type:Provider Instructions for Treatment How to access health informa tion online Indication:BMI 29.0-29.9,adult Start:24-Jan-2020 Instruction Type:Patient Education How to access health informa tion online - Detail Indication:BMI 29.0-29.9,adult Start:24-Jan-2020 Instruction Type:Patient Education Patient Instructions Indication:BMI 29.0-29.9,adult Start:24-Jan-2020 Instruction Type:Provider Instructions for Treatment How to access health informa tion online Indication:BMI 29.0-29.9,adult Start:09-Dec-2019 Instruction Type:Patient Education How to access health informa tion online - Detail Indication:BMI 29.0-29.9,adult Start:09-Dec-2019 Instruction Type:Patient Education Patient Instructions Indication:BMI 29.0-29.9,adult Start:09-Dec-2019 Instruction Type:Provider Instructions for Treatment How to access health informa tion online Indication:Former smoker Start:04-Dec-2019 Instruction Type:Patient Education How to access health informa tion online - Detail Indication:Former smoker Start:04-Dec-2019 Instruction Type:Patient Education Patient Instructions Indication:BMI 29.0-29.9,adult Start:04-Dec-2019 Instruction Type:Provider Instructions for Treatment How to access health informa tion online Indication:Former smoker Start:14-Oct-2019 Instruction Type:Patient Education How to access health informa tion online - Detail Indication:Former smoker Start:14-Oct-2019 Instruction Type:Patient Education Patient Instructions Indication:Former smoker Start:14-Oct-2019 Instruction Type:Provider Instructions for Treatment How to access health informa tion online Indication:Former smoker Start:11-Oct-2019 Instruction Type:Patient Education How to access health informa tion online - Detail Indication:Former smoker Start:11-Oct-2019 Instruction Type:Patient Education Patient Instructions Indication:Former smoker Start:11-Oct-2019 Instruction Type:Provider Instructions for Treatment How to access health informa tion online Indication:BMI 29.0-29.9,adult Start:13-Sep-2019 Instruction Type:Patient Education How to access health informa tion online - Detail Indication:BMI 29.0-29.9,adult Start:13-Sep-2019 Instruction Type:Patient Education Patient Instructions Indication:BMI 29.0-29.9,adult Start:13-Sep-2019 Instruction Type:Provider Instructions for Treatment How to access health informa tion online Indication:Former smoker Start:27-Aug-2019 Instruction Type:Patient Education How to access health informa tion online - Detail Indication:Former smoker Start:27-Aug-2019 Instruction Type:Patient Education Patient Instructions Indication:BMI 29.0-29.9,adult Start:27-Aug-2019 Instruction Type:Provider Instructions for Treatment How to access health informa tion online Indication:Former smoker Start:06-Aug-2019 Instruction Type:Patient Education How to access health informa tion online - Detail Indication:Former smoker Start:06-Aug-2019 Instruction Type:Patient Education Patient Instructions Indication:BMI 29.0-29.9,adult Start:06-Aug-2019 Instruction Type:Provider Instructions for Treatment How to access health informa tion online Indication:BMI 30.0-30.9,adult Start:02-Aug-2019 Instruction Type:Patient Education How to access health informa tion online - Detail Indication:BMI 30.0-30.9,adult Start:02-Aug-2019 Instruction Type:Patient Education Patient Instructions Indication:BMI 30.0-30.9,adult Start:02-Aug-2019 Instruction Type:Provider Instructions for Treatment How to access health informa tion online Indication:BMI 30.0-30.9,adult Start:06-Apr-2018 Instruction Type:Patient Education How to access health informa tion online - Detail Indication:BMI 30.0-30.9,adult Start:06-Apr-2018 Instruction Type:Patient Education Patient Instructions Indication:BMI 30.0-30.9,adult Start:06-Apr-2018 Instruction Type:Provider Instructions for Treatment How to access health informa tion online Indication:Former smoker Start:08-Dec-2017 Instruction Type:Patient Education How to access health informa tion online - Detail Indication:Former smoker Start:08-Dec-2017 Instruction Type:Patient Education Patient Instructions Indication:Former smoker Start:08-Dec-2017 Instruction Type:Provider Instructions for Treatment How to access health informa tion online Indication:Hypertension Start:28-Aug-2017 Instruction Type:Patient Education How to access health informa tion online - Detail Indication:Hypertension Start:28-Aug-2017 Instruction Type:Patient Education Patient Instructions Indication:Hypertension Start:28-Aug-2017 Instruction Type:Provider Instructions for Treatment How to access health informa tion online Indication:Hypertension Start:26-Jun-2017 Instruction Type:Patient Education How to access health informa tion online - Detail Indication:Hypertension Start:26-Jun-2017 Instruction Type:Patient Education Patient Instructions Indication:Hypertension Start:26-Jun-2017 Instruction Type:Provider Instructions for Treatment [facility]; [facility] Work Phone: Instructions* Name Dates Details Patient Instructions Indication:BMI 29.0-29.9,adult Start:28-Mar-2022 Instruction Type:Provider Instructions for Treatment How to Access Health Informa tion Online using Patient Portal and [employer]rd [employer] Apps Indication:BMI 29.0-29.9,adult Start:28-Mar-2022 Instruction Type:Patient Education Patient Instructions Indication:Former smoker Start:13-Oct-2021 Instruction Type:Provider Instructions for Treatment How to Access Health Informa tion Online using Patient Portal and [employer]rd [employer] Apps Indication:Former smoker Start:13-Oct-2021 Instruction Type:Patient Education Patient Instructions Indication:Former smoker Start:01-Sep-2021 Instruction Type:Provider Instructions for Treatment How to Access Health Informa tion Online using Patient Portal and [employer]rd [employer] Apps Indication:Former smoker Start:01-Sep-2021 Instruction Type:Patient Education Patient Instructions Indication:BMI 28.0-28.9,adult Start:05-May-2021 Instruction Type:Provider Instructions for Treatment How to Access Health Informa tion Online using Patient Portal and [employer]rd [employer] Apps Indication:BMI 28.0-28.9,adult Start:05-May-2021 Instruction Type:Patient Education Patient Instructions Indication:Former smoker Start:08-Mar-2021 Instruction Type:Provider Instructions for Treatment How to Access Health Informa tion Online using Patient Portal and [employer] Apps Indication:Former smoker Start:08-Mar-2021 Instruction Type:Patient Education Patient Instructions Indication:BMI 29.0-29.9,adult Start:18-Feb-2021 Instruction Type:Provider Instructions for Treatment How to Access Health Informa tion Online using Patient Portal and [employer] Apps Indication:BMI 29.0-29.9,adult Start:18-Feb-2021 Instruction Type:Patient Education Patient Instructions Indication:BMI 28.0-28.9,adult Start:07-Jan-2021 Instruction Type:Provider Instructions for Treatment How to Access Health Informa tion Online using Patient Portal and [employer] Apps Indication:BMI 28.0-28.9,adult Start:07-Jan-2021 Instruction Type:Patient Education Patient Instructions Indication:Former smoker Start:21-Oct-2020 Instruction Type:Provider Instructions for Treatment How to Access Health Informa tion Online using Patient Portal and [employer] Apps Indication:Former smoker Start:21-Oct-2020 Instruction Type:Patient Education Patient Instructions Indication:BMI 28.0-28.9,adult Start:30-Sep-2020 Instruction Type:Provider Instructions for Treatment How to Access Health Informa tion Online using Patient Portal and [employer] Apps Indication:BMI 28.0-28.9,adult Start:30-Sep-2020 Instruction Type:Patient Education Patient Instructions Indication:Former smoker Start:23-Sep-2020 Instruction Type:Provider Instructions for Treatment How to Access Health Informa tion Online using Patient Portal and [employer] Indication:Hyperglycemia Start:23-Sep-2020 Instruction Type:Patient Education How to Access Health Informa tion Online using Patient Portal and [employer] Apps Indication:Former smoker Start:05-Aug-2020 Instruction Type:Patient Education Patient Instructions Indication:Former smoker Start:05-Aug-2020 Instruction Type:Provider Instructions for Treatment How to Access Health Informa tion Online using Patient Portal and [employer] Apps Indication:Former smoker Start:29-Jun-2020 Instruction Type:Patient Education Patient Instructions Indication:Former smoker Start:29-Jun-2020 Instruction Type:Provider Instructions for Treatment How to Access Health Informa tion Online using Patient Portal and [employer] Apps Indication:Former smoker Start:24-Jun-2020 Instruction Type:Patient Education Patient Instructions Indication:Former smoker Start:24-Jun-2020 Instruction Type:Provider Instructions for Treatment Patient Instructions Indication:Former smoker Start:25-Mar-2020 Instruction Type:Provider Instructions for Treatment How to Access Health Informa tion Online using Patient Portal and [employer] Indication:Former smoker Start:25-Mar-2020 Instruction Type:Patient Education How to Access Health Informa tion Online using Patient Portal and [employer] Apps Indication:Former smoker Start:27-Feb-2020 Instruction Type:Patient Education Patient Instructions Indication:Former smoker Start:27-Feb-2020 Instruction Type:Provider Instructions for Treatment How to access health informa tion online Indication:Former smoker Start:18-Feb-2020 Instruction Type:Patient Education How to access health informa tion online - Detail Indication:Former smoker Start:18-Feb-2020 Instruction Type:Patient Education Patient Instructions Indication:Former smoker Start:18-Feb-2020 Instruction Type:Provider Instructions for Treatment How to access health informa tion online Indication:Former smoker Start:11-Feb-2020 Instruction Type:Patient Education How to access health informa tion online - Detail Indication:Former smoker Start:11-Feb-2020 Instruction Type:Patient Education Patient Instructions Indication:Vitamin B12 deficiency Start:11-Feb-2020 Instruction Type:Provider Instructions for Treatment How to access health informa tion online Indication:Former smoker Start:28-Jan-2020 Instruction Type:Patient Education How to access health informa tion online - Detail Indication:Former smoker Start:28-Jan-2020 Instruction Type:Patient Education Patient Instructions Indication:Former smoker Start:28-Jan-2020 Instruction Type:Provider Instructions for Treatment How to access health informa tion online Indication:BMI 29.0-29.9,adult Start:24-Jan-2020 Instruction Type:Patient Education How to access health informa tion online - Detail Indication:BMI 29.0-29.9,adult Start:24-Jan-2020 Instruction Type:Patient Education Patient Instructions Indication:BMI 29.0-29.9,adult Start:24-Jan-2020 Instruction Type:Provider Instructions for Treatment How to access health informa tion online Indication:BMI 29.0-29.9,adult Start:09-Dec-2019 Instruction Type:Patient Education How to access health informa tion online - Detail Indication:BMI 29.0-29.9,adult Start:09-Dec-2019 Instruction Type:Patient Education Patient Instructions Indication:BMI 29.0-29.9,adult Start:09-Dec-2019 Instruction Type:Provider Instructions for Treatment How to access health informa tion online Indication:Former smoker Start:04-Dec-2019 Instruction Type:Patient Education How to access health informa tion online - Detail Indication:Former smoker Start:04-Dec-2019 Instruction Type:Patient Education Patient Instructions Indication:BMI 29.0-29.9,adult Start:04-Dec-2019 Instruction Type:Provider Instructions for Treatment How to access health informa tion online Indication:Former smoker Start:14-Oct-2019 Instruction Type:Patient Education How to access health informa tion online - Detail Indication:Former smoker Start:14-Oct-2019 Instruction Type:Patient Education Patient Instructions Indication:Former smoker Start:14-Oct-2019 Instruction Type:Provider Instructions for Treatment How to access health informa tion online Indication:Former smoker Start:11-Oct-2019 Instruction Type:Patient Education How to access health informa tion online - Detail Indication:Former smoker Start:11-Oct-2019 Instruction Type:Patient Education Patient Instructions Indication:Former smoker Start:11-Oct-2019 Instruction Type:Provider Instructions for Treatment How to access health informa tion online Indication:BMI 29.0-29.9,adult Start:13-Sep-2019 Instruction Type:Patient Education How to access health informa tion online - Detail Indication:BMI 29.0-29.9,adult Start:13-Sep-2019 Instruction Type:Patient Education Patient Instructions Indication:BMI 29.0-29.9,adult Start:13-Sep-2019 Instruction Type:Provider Instructions for Treatment How to access health informa tion online Indication:Former smoker Start:27-Aug-2019 Instruction Type:Patient Education How to access health informa tion online - Detail Indication:Former smoker Start:27-Aug-2019 Instruction Type:Patient Education Patient Instructions Indication:BMI 29.0-29.9,adult Start:27-Aug-2019 Instruction Type:Provider Instructions for Treatment How to access health informa tion online Indication:Former smoker Start:06-Aug-2019 Instruction Type:Patient Education How to access health informa tion online - Detail Indication:Former smoker Start:06-Aug-2019 Instruction Type:Patient Education Patient Instructions Indication:BMI 29.0-29.9,adult Start:06-Aug-2019 Instruction Type:Provider Instructions for Treatment How to access health informa tion online Indication:BMI 30.0-30.9,adult Start:02-Aug-2019 Instruction Type:Patient Education How to access health informa tion online - Detail Indication:BMI 30.0-30.9,adult Start:02-Aug-2019 Instruction Type:Patient Education Patient Instructions Indication:BMI 30.0-30.9,adult Start:02-Aug-2019 Instruction Type:Provider Instructions for Treatment How to access health informa tion online Indication:BMI 30.0-30.9,adult Start:06-Apr-2018 Instruction Type:Patient Education How to access health informa tion online - Detail Indication:BMI 30.0-30.9,adult Start:06-Apr-2018 Instruction Type:Patient Education Patient Instructions Indication:BMI 30.0-30.9,adult Start:06-Apr-2018 Instruction Type:Provider Instructions for Treatment How to access health informa tion online Indication:Former smoker Start:08-Dec-2017 Instruction Type:Patient Education How to access health informa tion online - Detail Indication:Former smoker Start:08-Dec-2017 Instruction Type:Patient Education Patient Instructions Indication:Former smoker Start:08-Dec-2017 Instruction Type:Provider Instructions for Treatment How to access health informa tion online Indication:Hypertension Start:28-Aug-2017 Instruction Type:Patient Education How to access health informa tion online - Detail Indication:Hypertension Start:28-Aug-2017 Instruction Type:Patient Education Patient Instructions Indication:Hypertension Start:28-Aug-2017 Instruction Type:Provider Instructions for Treatment How to access health informa tion online Indication:Hypertension Start:26-Jun-2017 Instruction Type:Patient Education How to access health informa tion online - Detail Indication:Hypertension Start:26-Jun-2017 Instruction Type:Patient Education Patient Instructions Indication:Hypertension Start:26-Jun-2017 Instruction Type:Provider Instructions for Treatment [facility]; [facility] Work Phone: Instructions* Name Dates Details Patient Instructions Indication:BMI 29.0-29.9,adult Start:28-Mar-2022 Instruction Type:Provider Instructions for Treatment How to Access Health Informa tion Online using Patient Portal and [employer]rd [employer] Apps Indication:BMI 29.0-29.9,adult Start:28-Mar-2022 Instruction Type:Patient Education Patient Instructions Indication:Former smoker Start:13-Oct-2021 Instruction Type:Provider Instructions for Treatment How to Access Health Informa tion Online using Patient Portal and [employer]rd [employer] Apps Indication:Former smoker Start:13-Oct-2021 Instruction Type:Patient Education Patient Instructions Indication:Former smoker Start:01-Sep-2021 Instruction Type:Provider Instructions for Treatment How to Access Health Informa tion Online using Patient Portal and [employer]rd [employer] Apps Indication:Former smoker Start:01-Sep-2021 Instruction Type:Patient Education Patient Instructions Indication:BMI 28.0-28.9,adult Start:05-May-2021 Instruction Type:Provider Instructions for Treatment How to Access Health Informa tion Online using Patient Portal and [employer]rd [employer] Apps Indication:BMI 28.0-28.9,adult Start:05-May-2021 Instruction Type:Patient Education Patient Instructions Indication:Former smoker Start:08-Mar-2021 Instruction Type:Provider Instructions for Treatment How to Access Health Informa tion Online using Patient Portal and [employer] Apps Indication:Former smoker Start:08-Mar-2021 Instruction Type:Patient Education Patient Instructions Indication:BMI 29.0-29.9,adult Start:18-Feb-2021 Instruction Type:Provider Instructions for Treatment How to Access Health Informa tion Online using Patient Portal and [employer] Apps Indication:BMI 29.0-29.9,adult Start:18-Feb-2021 Instruction Type:Patient Education Patient Instructions Indication:BMI 28.0-28.9,adult Start:07-Jan-2021 Instruction Type:Provider Instructions for Treatment How to Access Health Informa tion Online using Patient Portal and [employer] Apps Indication:BMI 28.0-28.9,adult Start:07-Jan-2021 Instruction Type:Patient Education Patient Instructions Indication:Former smoker Start:21-Oct-2020 Instruction Type:Provider Instructions for Treatment How to Access Health Informa tion Online using Patient Portal and [employer] Apps Indication:Former smoker Start:21-Oct-2020 Instruction Type:Patient Education Patient Instructions Indication:BMI 28.0-28.9,adult Start:30-Sep-2020 Instruction Type:Provider Instructions for Treatment How to Access Health Informa tion Online using Patient Portal and [employer] Apps Indication:BMI 28.0-28.9,adult Start:30-Sep-2020 Instruction Type:Patient Education Patient Instructions Indication:Former smoker Start:23-Sep-2020 Instruction Type:Provider Instructions for Treatment How to Access Health Informa tion Online using Patient Portal and [employer] Apps Indication:Hyperglycemia Start:23-Sep-2020 Instruction Type:Patient Education How to Access Health Informa tion Online using Patient Portal and [employer]rd [employer] Apps Indication:Former smoker Start:05-Aug-2020 Instruction Type:Patient Education Patient Instructions Indication:Former smoker Start:05-Aug-2020 Instruction Type:Provider Instructions for Treatment How to Access Health Informa tion Online using Patient Portal and [employer] Apps Indication:Former smoker Start:29-Jun-2020 Instruction Type:Patient Education Patient Instructions Indication:Former smoker Start:29-Jun-2020 Instruction Type:Provider Instructions for Treatment How to Access Health Informa tion Online using Patient Portal and [employer] Apps Indication:Former smoker Start:24-Jun-2020 Instruction Type:Patient Education Patient Instructions Indication:Former smoker Start:24-Jun-2020 Instruction Type:Provider Instructions for Treatment Patient Instructions Indication:Former smoker Start:25-Mar-2020 Instruction Type:Provider Instructions for Treatment How to Access Health Informa tion Online using Patient Portal and [employer] Apps Indication:Former smoker Start:25-Mar-2020 Instruction Type:Patient Education How to Access Health Informa tion Online using Patient Portal and [employer] Apps Indication:Former smoker Start:27-Feb-2020 Instruction Type:Patient Education Patient Instructions Indication:Former smoker Start:27-Feb-2020 Instruction Type:Provider Instructions for Treatment How to access health informa tion online Indication:Former smoker Start:18-Feb-2020 Instruction Type:Patient Education How to access health informa tion online - Detail Indication:Former smoker Start:18-Feb-2020 Instruction Type:Patient Education Patient Instructions Indication:Former smoker Start:18-Feb-2020 Instruction Type:Provider Instructions for Treatment How to access health informa tion online Indication:Former smoker Start:11-Feb-2020 Instruction Type:Patient Education How to access health informa tion online - Detail Indication:Former smoker Start:11-Feb-2020 Instruction Type:Patient Education Patient Instructions Indication:Vitamin B12 deficiency Start:11-Feb-2020 Instruction Type:Provider Instructions for Treatment How to access health informa tion online Indication:Former smoker Start:28-Jan-2020 Instruction Type:Patient Education How to access health informa tion online - Detail Indication:Former smoker Start:28-Jan-2020 Instruction Type:Patient Education Patient Instructions Indication:Former smoker Start:28-Jan-2020 Instruction Type:Provider Instructions for Treatment How to access health informa tion online Indication:BMI 29.0-29.9,adult Start:24-Jan-2020 Instruction Type:Patient Education How to access health informa tion online - Detail Indication:BMI 29.0-29.9,adult Start:24-Jan-2020 Instruction Type:Patient Education Patient Instructions Indication:BMI 29.0-29.9,adult Start:24-Jan-2020 Instruction Type:Provider Instructions for Treatment How to access health informa tion online Indication:BMI 29.0-29.9,adult Start:09-Dec-2019 Instruction Type:Patient Education How to access health informa tion online - Detail Indication:BMI 29.0-29.9,adult Start:09-Dec-2019 Instruction Type:Patient Education Patient Instructions Indication:BMI 29.0-29.9,adult Start:09-Dec-2019 Instruction Type:Provider Instructions for Treatment How to access health informa tion online Indication:Former smoker Start:04-Dec-2019 Instruction Type:Patient Education How to access health informa tion online - Detail Indication:Former smoker Start:04-Dec-2019 Instruction Type:Patient Education Patient Instructions Indication:BMI 29.0-29.9,adult Start:04-Dec-2019 Instruction Type:Provider Instructions for Treatment How to access health informa tion online Indication:Former smoker Start:14-Oct-2019 Instruction Type:Patient Education How to access health informa tion online - Detail Indication:Former smoker Start:14-Oct-2019 Instruction Type:Patient Education Patient Instructions Indication:Former smoker Start:14-Oct-2019 Instruction Type:Provider Instructions for Treatment How to access health informa tion online Indication:Former smoker Start:11-Oct-2019 Instruction Type:Patient Education How to access health informa tion online - Detail Indication:Former smoker Start:11-Oct-2019 Instruction Type:Patient Education Patient Instructions Indication:Former smoker Start:11-Oct-2019 Instruction Type:Provider Instructions for Treatment How to access health informa tion online Indication:BMI 29.0-29.9,adult Start:13-Sep-2019 Instruction Type:Patient Education How to access health informa tion online - Detail Indication:BMI 29.0-29.9,adult Start:13-Sep-2019 Instruction Type:Patient Education Patient Instructions Indication:BMI 29.0-29.9,adult Start:13-Sep-2019 Instruction Type:Provider Instructions for Treatment How to access health informa tion online Indication:Former smoker Start:27-Aug-2019 Instruction Type:Patient Education How to access health informa tion online - Detail Indication:Former smoker Start:27-Aug-2019 Instruction Type:Patient Education Patient Instructions Indication:BMI 29.0-29.9,adult Start:27-Aug-2019 Instruction Type:Provider Instructions for Treatment How to access health informa tion online Indication:Former smoker Start:06-Aug-2019 Instruction Type:Patient Education How to access health informa tion online - Detail Indication:Former smoker Start:06-Aug-2019 Instruction Type:Patient Education Patient Instructions Indication:BMI 29.0-29.9,adult Start:06-Aug-2019 Instruction Type:Provider Instructions for Treatment How to access health informa tion online Indication:BMI 30.0-30.9,adult Start:02-Aug-2019 Instruction Type:Patient Education How to access health informa tion online - Detail Indication:BMI 30.0-30.9,adult Start:02-Aug-2019 Instruction Type:Patient Education Patient Instructions Indication:BMI 30.0-30.9,adult Start:02-Aug-2019 Instruction Type:Provider Instructions for Treatment How to access health informa tion online Indication:BMI 30.0-30.9,adult Start:06-Apr-2018 Instruction Type:Patient Education How to access health informa tion online - Detail Indication:BMI 30.0-30.9,adult Start:06-Apr-2018 Instruction Type:Patient Education Patient Instructions Indication:BMI 30.0-30.9,adult Start:06-Apr-2018 Instruction Type:Provider Instructions for Treatment How to access health informa tion online Indication:Former smoker Start:08-Dec-2017 Instruction Type:Patient Education How to access health informa tion online - Detail Indication:Former smoker Start:08-Dec-2017 Instruction Type:Patient Education Patient Instructions Indication:Former smoker Start:08-Dec-2017 Instruction Type:Provider Instructions for Treatment How to access health informa tion online Indication:Hypertension Start:28-Aug-2017 Instruction Type:Patient Education How to access health informa tion online - Detail Indication:Hypertension Start:28-Aug-2017 Instruction Type:Patient Education Patient Instructions Indication:Hypertension Start:28-Aug-2017 Instruction Type:Provider Instructions for Treatment How to access health informa tion online Indication:Hypertension Start:26-Jun-2017 Instruction Type:Patient Education How to access health informa tion online - Detail Indication:Hypertension Start:26-Jun-2017 Instruction Type:Patient Education Patient Instructions Indication:Hypertension Start:26-Jun-2017 Instruction Type:Provider Instructions for Treatment [facility]; [facility] Work Phone: Instructions* Name Dates Details Patient Instructions Indication:Former smoker Start:13-May-2022 Instruction Type:Provider Instructions for Treatment How to Access Health Informa tion Online using Patient Portal and [employer]rd [employer] Apps Indication:Former smoker Start:13-May-2022 Instruction Type:Patient Education Patient Instructions Indication:BMI 29.0-29.9,adult Start:28-Mar-2022 Instruction Type:Provider Instructions for Treatment How to Access Health Informa tion Online using Patient Portal and [employer]rd [employer] Apps Indication:BMI 29.0-29.9,adult Start:28-Mar-2022 Instruction Type:Patient Education Patient Instructions Indication:Former smoker Start:13-Oct-2021 Instruction Type:Provider Instructions for Treatment How to Access Health Informa tion Online using Patient Portal and [employer]rd [employer] Apps Indication:Former smoker Start:13-Oct-2021 Instruction Type:Patient Education Patient Instructions Indication:Former smoker Start:01-Sep-2021 Instruction Type:Provider Instructions for Treatment How to Access Health Informa tion Online using Patient Portal and [employer]rd [employer] Apps Indication:Former smoker Start:01-Sep-2021 Instruction Type:Patient Education Patient Instructions Indication:BMI 28.0-28.9,adult Start:05-May-2021 Instruction Type:Provider Instructions for Treatment How to Access Health Informa tion Online using Patient Portal and [employer]rd [employer] Apps Indication:BMI 28.0-28.9,adult Start:05-May-2021 Instruction Type:Patient Education Patient Instructions Indication:Former smoker Start:08-Mar-2021 Instruction Type:Provider Instructions for Treatment How to Access Health Informa tion Online using Patient Portal and [employer]rd [employer] Apps Indication:Former smoker Start:08-Mar-2021 Instruction Type:Patient Education Patient Instructions Indication:BMI 29.0-29.9,adult Start:18-Feb-2021 Instruction Type:Provider Instructions for Treatment How to Access Health Informa tion Online using Patient Portal and [employer]rd [employer] Apps Indication:BMI 29.0-29.9,adult Start:18-Feb-2021 Instruction Type:Patient Education Patient Instructions Indication:BMI 28.0-28.9,adult Start:07-Jan-2021 Instruction Type:Provider Instructions for Treatment How to Access Health Informa tion Online using Patient Portal and [employer]rd [employer] Apps Indication:BMI 28.0-28.9,adult Start:07-Jan-2021 Instruction Type:Patient Education Patient Instructions Indication:Former smoker Start:21-Oct-2020 Instruction Type:Provider Instructions for Treatment How to Access Health Informa tion Online using Patient Portal and [employer]rd [employer] Apps Indication:Former smoker Start:21-Oct-2020 Instruction Type:Patient Education Patient Instructions Indication:BMI 28.0-28.9,adult Start:30-Sep-2020 Instruction Type:Provider Instructions for Treatment How to Access Health Informa tion Online using Patient Portal and [employer]rd [employer] Apps Indication:BMI 28.0-28.9,adult Start:30-Sep-2020 Instruction Type:Patient Education Patient Instructions Indication:Former smoker Start:23-Sep-2020 Instruction Type:Provider Instructions for Treatment How to Access Health Informa tion Online using Patient Portal and [employer]rd [employer] Apps Indication:Hyperglycemia Start:23-Sep-2020 Instruction Type:Patient Education How to Access Health Informa tion Online using Patient Portal and [employer]rd [employer] Apps Indication:Former smoker Start:05-Aug-2020 Instruction Type:Patient Education Patient Instructions Indication:Former smoker Start:05-Aug-2020 Instruction Type:Provider Instructions for Treatment How to Access Health Informa tion Online using Patient Portal and [employer] Apps Indication:Former smoker Start:29-Jun-2020 Instruction Type:Patient Education Patient Instructions Indication:Former smoker Start:29-Jun-2020 Instruction Type:Provider Instructions for Treatment How to Access Health Informa tion Online using Patient Portal and [employer]rd [employer] Apps Indication:Former smoker Start:24-Jun-2020 Instruction Type:Patient Education Patient Instructions Indication:Former smoker Start:24-Jun-2020 Instruction Type:Provider Instructions for Treatment Patient Instructions Indication:Former smoker Start:25-Mar-2020 Instruction Type:Provider Instructions for Treatment How to Access Health Informa tion Online using Patient Portal and [employer] Apps Indication:Former smoker Start:25-Mar-2020 Instruction Type:Patient Education How to Access Health Informa tion Online using Patient Portal and [employer] Apps Indication:Former smoker Start:27-Feb-2020 Instruction Type:Patient Education Patient Instructions Indication:Former smoker Start:27-Feb-2020 Instruction Type:Provider Instructions for Treatment How to access health informa tion online Indication:Former smoker Start:18-Feb-2020 Instruction Type:Patient Education How to access health informa tion online - Detail Indication:Former smoker Start:18-Feb-2020 Instruction Type:Patient Education Patient Instructions Indication:Former smoker Start:18-Feb-2020 Instruction Type:Provider Instructions for Treatment How to access health informa tion online Indication:Former smoker Start:11-Feb-2020 Instruction Type:Patient Education How to access health informa tion online - Detail Indication:Former smoker Start:11-Feb-2020 Instruction Type:Patient Education Patient Instructions Indication:Vitamin B12 deficiency Start:11-Feb-2020 Instruction Type:Provider Instructions for Treatment How to access health informa tion online Indication:Former smoker Start:28-Jan-2020 Instruction Type:Patient Education How to access health informa tion online - Detail Indication:Former smoker Start:28-Jan-2020 Instruction Type:Patient Education Patient Instructions Indication:Former smoker Start:28-Jan-2020 Instruction Type:Provider Instructions for Treatment How to access health informa tion online Indication:BMI 29.0-29.9,adult Start:24-Jan-2020 Instruction Type:Patient Education How to access health informa tion online - Detail Indication:BMI 29.0-29.9,adult Start:24-Jan-2020 Instruction Type:Patient Education Patient Instructions Indication:BMI 29.0-29.9,adult Start:24-Jan-2020 Instruction Type:Provider Instructions for Treatment How to access health informa tion online Indication:BMI 29.0-29.9,adult Start:09-Dec-2019 Instruction Type:Patient Education How to access health informa tion online - Detail Indication:BMI 29.0-29.9,adult Start:09-Dec-2019 Instruction Type:Patient Education Patient Instructions Indication:BMI 29.0-29.9,adult Start:09-Dec-2019 Instruction Type:Provider Instructions for Treatment How to access health informa tion online Indication:Former smoker Start:04-Dec-2019 Instruction Type:Patient Education How to access health informa tion online - Detail Indication:Former smoker Start:04-Dec-2019 Instruction Type:Patient Education Patient Instructions Indication:BMI 29.0-29.9,adult Start:04-Dec-2019 Instruction Type:Provider Instructions for Treatment How to access health informa tion online Indication:Former smoker Start:14-Oct-2019 Instruction Type:Patient Education How to access health informa tion online - Detail Indication:Former smoker Start:14-Oct-2019 Instruction Type:Patient Education Patient Instructions Indication:Former smoker Start:14-Oct-2019 Instruction Type:Provider Instructions for Treatment How to access health informa tion online Indication:Former smoker Start:11-Oct-2019 Instruction Type:Patient Education How to access health informa tion online - Detail Indication:Former smoker Start:11-Oct-2019 Instruction Type:Patient Education Patient Instructions Indication:Former smoker Start:11-Oct-2019 Instruction Type:Provider Instructions for Treatment How to access health informa tion online Indication:BMI 29.0-29.9,adult Start:13-Sep-2019 Instruction Type:Patient Education How to access health informa tion online - Detail Indication:BMI 29.0-29.9,adult Start:13-Sep-2019 Instruction Type:Patient Education Patient Instructions Indication:BMI 29.0-29.9,adult Start:13-Sep-2019 Instruction Type:Provider Instructions for Treatment How to access health informa tion online Indication:Former smoker Start:27-Aug-2019 Instruction Type:Patient Education How to access health informa tion online - Detail Indication:Former smoker Start:27-Aug-2019 Instruction Type:Patient Education Patient Instructions Indication:BMI 29.0-29.9,adult Start:27-Aug-2019 Instruction Type:Provider Instructions for Treatment How to access health informa tion online Indication:Former smoker Start:06-Aug-2019 Instruction Type:Patient Education How to access health informa tion online - Detail Indication:Former smoker Start:06-Aug-2019 Instruction Type:Patient Education Patient Instructions Indication:BMI 29.0-29.9,adult Start:06-Aug-2019 Instruction Type:Provider Instructions for Treatment How to access health informa tion online Indication:BMI 30.0-30.9,adult Start:02-Aug-2019 Instruction Type:Patient Education How to access health informa tion online - Detail Indication:BMI 30.0-30.9,adult Start:02-Aug-2019 Instruction Type:Patient Education Patient Instructions Indication:BMI 30.0-30.9,adult Start:02-Aug-2019 Instruction Type:Provider Instructions for Treatment How to access health informa tion online Indication:BMI 30.0-30.9,adult Start:06-Apr-2018 Instruction Type:Patient Education How to access health informa tion online - Detail Indication:BMI 30.0-30.9,adult Start:06-Apr-2018 Instruction Type:Patient Education Patient Instructions Indication:BMI 30.0-30.9,adult Start:06-Apr-2018 Instruction Type:Provider Instructions for Treatment How to access health informa tion online Indication:Former smoker Start:08-Dec-2017 Instruction Type:Patient Education How to access health informa tion online - Detail Indication:Former smoker Start:08-Dec-2017 Instruction Type:Patient Education Patient Instructions Indication:Former smoker Start:08-Dec-2017 Instruction Type:Provider Instructions for Treatment How to access health informa tion online Indication:Hypertension Start:28-Aug-2017 Instruction Type:Patient Education How to access health informa tion online - Detail Indication:Hypertension Start:28-Aug-2017 Instruction Type:Patient Education Patient Instructions Indication:Hypertension Start:28-Aug-2017 Instruction Type:Provider Instructions for Treatment How to access health informa tion online Indication:Hypertension Start:26-Jun-2017 Instruction Type:Patient Education How to access health informa tion online - Detail Indication:Hypertension Start:26-Jun-2017 Instruction Type:Patient Education Patient Instructions Indication:Hypertension Start:26-Jun-2017 Instruction Type:Provider Instructions for Treatment [facility]; [facility] Work Phone: Instructions* Name Dates Details Patient Instructions Indication:Former smoker Start:13-May-2022 Instruction Type:Provider Instructions for Treatment How to Access Health Informa tion Online using Patient Portal and [employer]rd [employer] Apps Indication:Former smoker Start:13-May-2022 Instruction Type:Patient Education Patient Instructions Indication:BMI 29.0-29.9,adult Start:28-Mar-2022 Instruction Type:Provider Instructions for Treatment How to Access Health Informa tion Online using Patient Portal and [employer]rd [employer] Apps Indication:BMI 29.0-29.9,adult Start:28-Mar-2022 Instruction Type:Patient Education Patient Instructions Indication:Former smoker Start:13-Oct-2021 Instruction Type:Provider Instructions for Treatment How to Access Health Informa tion Online using Patient Portal and [employer] Apps Indication:Former smoker Start:13-Oct-2021 Instruction Type:Patient Education Patient Instructions Indication:Former smoker Start:01-Sep-2021 Instruction Type:Provider Instructions for Treatment How to Access Health Informa tion Online using Patient Portal and [employer]rd [employer] Apps Indication:Former smoker Start:01-Sep-2021 Instruction Type:Patient Education Patient Instructions Indication:BMI 28.0-28.9,adult Start:05-May-2021 Instruction Type:Provider Instructions for Treatment How to Access Health Informa tion Online using Patient Portal and [employer]rd [employer] Apps Indication:BMI 28.0-28.9,adult Start:05-May-2021 Instruction Type:Patient Education Patient Instructions Indication:Former smoker Start:08-Mar-2021 Instruction Type:Provider Instructions for Treatment How to Access Health Informa tion Online using Patient Portal and [employer] Apps Indication:Former smoker Start:08-Mar-2021 Instruction Type:Patient Education Patient Instructions Indication:BMI 29.0-29.9,adult Start:18-Feb-2021 Instruction Type:Provider Instructions for Treatment How to Access Health Informa tion Online using Patient Portal and [employer]rd [employer] Apps Indication:BMI 29.0-29.9,adult Start:18-Feb-2021 Instruction Type:Patient Education Patient Instructions Indication:BMI 28.0-28.9,adult Start:07-Jan-2021 Instruction Type:Provider Instructions for Treatment How to Access Health Informa tion Online using Patient Portal and [employer]rd [employer] Apps Indication:BMI 28.0-28.9,adult Start:07-Jan-2021 Instruction Type:Patient Education Patient Instructions Indication:Former smoker Start:21-Oct-2020 Instruction Type:Provider Instructions for Treatment How to Access Health Informa tion Online using Patient Portal and [employer]rd [employer] Apps Indication:Former smoker Start:21-Oct-2020 Instruction Type:Patient Education Patient Instructions Indication:BMI 28.0-28.9,adult Start:30-Sep-2020 Instruction Type:Provider Instructions for Treatment How to Access Health Informa tion Online using Patient Portal and [employer]rd [employer] Apps Indication:BMI 28.0-28.9,adult Start:30-Sep-2020 Instruction Type:Patient Education Patient Instructions Indication:Former smoker Start:23-Sep-2020 Instruction Type:Provider Instructions for Treatment How to Access Health Informa tion Online using Patient Portal and [employer]rd [employer] Apps Indication:Hyperglycemia Start:23-Sep-2020 Instruction Type:Patient Education How to Access Health Informa tion Online using Patient Portal and [employer]rd [employer] Apps Indication:Former smoker Start:05-Aug-2020 Instruction Type:Patient Education Patient Instructions Indication:Former smoker Start:05-Aug-2020 Instruction Type:Provider Instructions for Treatment How to Access Health Informa tion Online using Patient Portal and [employer] Apps Indication:Former smoker Start:29-Jun-2020 Instruction Type:Patient Education Patient Instructions Indication:Former smoker Start:29-Jun-2020 Instruction Type:Provider Instructions for Treatment How to Access Health Informa tion Online using Patient Portal and [employer]rd [employer] Apps Indication:Former smoker Start:24-Jun-2020 Instruction Type:Patient Education Patient Instructions Indication:Former smoker Start:24-Jun-2020 Instruction Type:Provider Instructions for Treatment Patient Instructions Indication:Former smoker Start:25-Mar-2020 Instruction Type:Provider Instructions for Treatment How to Access Health Informa tion Online using Patient Portal and [employer] Apps Indication:Former smoker Start:25-Mar-2020 Instruction Type:Patient Education How to Access Health Informa tion Online using Patient Portal and [employer]rd [employer] Apps Indication:Former smoker Start:27-Feb-2020 Instruction Type:Patient Education Patient Instructions Indication:Former smoker Start:27-Feb-2020 Instruction Type:Provider Instructions for Treatment How to access health informa tion online Indication:Former smoker Start:18-Feb-2020 Instruction Type:Patient Education How to access health informa tion online - Detail Indication:Former smoker Start:18-Feb-2020 Instruction Type:Patient Education Patient Instructions Indication:Former smoker Start:18-Feb-2020 Instruction Type:Provider Instructions for Treatment How to access health informa tion online Indication:Former smoker Start:11-Feb-2020 Instruction Type:Patient Education How to access health informa tion online - Detail Indication:Former smoker Start:11-Feb-2020 Instruction Type:Patient Education Patient Instructions Indication:Vitamin B12 deficiency Start:11-Feb-2020 Instruction Type:Provider Instructions for Treatment How to access health informa tion online Indication:Former smoker Start:28-Jan-2020 Instruction Type:Patient Education How to access health informa tion online - Detail Indication:Former smoker Start:28-Jan-2020 Instruction Type:Patient Education Patient Instructions Indication:Former smoker Start:28-Jan-2020 Instruction Type:Provider Instructions for Treatment How to access health informa tion online Indication:BMI 29.0-29.9,adult Start:24-Jan-2020 Instruction Type:Patient Education How to access health informa tion online - Detail Indication:BMI 29.0-29.9,adult Start:24-Jan-2020 Instruction Type:Patient Education Patient Instructions Indication:BMI 29.0-29.9,adult Start:24-Jan-2020 Instruction Type:Provider Instructions for Treatment How to access health informa tion online Indication:BMI 29.0-29.9,adult Start:09-Dec-2019 Instruction Type:Patient Education How to access health informa tion online - Detail Indication:BMI 29.0-29.9,adult Start:09-Dec-2019 Instruction Type:Patient Education Patient Instructions Indication:BMI 29.0-29.9,adult Start:09-Dec-2019 Instruction Type:Provider Instructions for Treatment How to access health informa tion online Indication:Former smoker Start:04-Dec-2019 Instruction Type:Patient Education How to access health informa tion online - Detail Indication:Former smoker Start:04-Dec-2019 Instruction Type:Patient Education Patient Instructions Indication:BMI 29.0-29.9,adult Start:04-Dec-2019 Instruction Type:Provider Instructions for Treatment How to access health informa tion online Indication:Former smoker Start:14-Oct-2019 Instruction Type:Patient Education How to access health informa tion online - Detail Indication:Former smoker Start:14-Oct-2019 Instruction Type:Patient Education Patient Instructions Indication:Former smoker Start:14-Oct-2019 Instruction Type:Provider Instructions for Treatment How to access health informa tion online Indication:Former smoker Start:11-Oct-2019 Instruction Type:Patient Education How to access health informa tion online - Detail Indication:Former smoker Start:11-Oct-2019 Instruction Type:Patient Education Patient Instructions Indication:Former smoker Start:11-Oct-2019 Instruction Type:Provider Instructions for Treatment How to access health informa tion online Indication:BMI 29.0-29.9,adult Start:13-Sep-2019 Instruction Type:Patient Education How to access health informa tion online - Detail Indication:BMI 29.0-29.9,adult Start:13-Sep-2019 Instruction Type:Patient Education Patient Instructions Indication:BMI 29.0-29.9,adult Start:13-Sep-2019 Instruction Type:Provider Instructions for Treatment How to access health informa tion online Indication:Former smoker Start:27-Aug-2019 Instruction Type:Patient Education How to access health informa tion online - Detail Indication:Former smoker Start:27-Aug-2019 Instruction Type:Patient Education Patient Instructions Indication:BMI 29.0-29.9,adult Start:27-Aug-2019 Instruction Type:Provider Instructions for Treatment How to access health informa tion online Indication:Former smoker Start:06-Aug-2019 Instruction Type:Patient Education How to access health informa tion online - Detail Indication:Former smoker Start:06-Aug-2019 Instruction Type:Patient Education Patient Instructions Indication:BMI 29.0-29.9,adult Start:06-Aug-2019 Instruction Type:Provider Instructions for Treatment How to access health informa tion online Indication:BMI 30.0-30.9,adult Start:02-Aug-2019 Instruction Type:Patient Education How to access health informa tion online - Detail Indication:BMI 30.0-30.9,adult Start:02-Aug-2019 Instruction Type:Patient Education Patient Instructions Indication:BMI 30.0-30.9,adult Start:02-Aug-2019 Instruction Type:Provider Instructions for Treatment How to access health informa tion online Indication:BMI 30.0-30.9,adult Start:06-Apr-2018 Instruction Type:Patient Education How to access health informa tion online - Detail Indication:BMI 30.0-30.9,adult Start:06-Apr-2018 Instruction Type:Patient Education Patient Instructions Indication:BMI 30.0-30.9,adult Start:06-Apr-2018 Instruction Type:Provider Instructions for Treatment How to access health informa tion online Indication:Former smoker Start:08-Dec-2017 Instruction Type:Patient Education How to access health informa tion online - Detail Indication:Former smoker Start:08-Dec-2017 Instruction Type:Patient Education Patient Instructions Indication:Former smoker Start:08-Dec-2017 Instruction Type:Provider Instructions for Treatment How to access health informa tion online Indication:Hypertension Start:28-Aug-2017 Instruction Type:Patient Education How to access health informa tion online - Detail Indication:Hypertension Start:28-Aug-2017 Instruction Type:Patient Education Patient Instructions Indication:Hypertension Start:28-Aug-2017 Instruction Type:Provider Instructions for Treatment How to access health informa tion online Indication:Hypertension Start:26-Jun-2017 Instruction Type:Patient Education How to access health informa tion online - Detail Indication:Hypertension Start:26-Jun-2017 Instruction Type:Patient Education Patient Instructions Indication:Hypertension Start:26-Jun-2017 Instruction Type:Provider Instructions for Treatment [facility]; [facility] Work Phone: Instructions* Name Dates Details Patient Instructions Indication:Former smoker Start:13-May-2022 Instruction Type:Provider Instructions for Treatment How to Access Health Informa tion Online using Patient Portal and [employer] Indication:Former smoker Start:13-May-2022 Instruction Type:Patient Education Patient Instructions Indication:BMI 29.0-29.9,adult Start:28-Mar-2022 Instruction Type:Provider Instructions for Treatment How to Access Health Informa tion Online using Patient Portal and [employer]rd [employer] Indication:BMI 29.0-29.9,adult Start:28-Mar-2022 Instruction Type:Patient Education Patient Instructions Indication:Former smoker Start:13-Oct-2021 Instruction Type:Provider Instructions for Treatment How to Access Health Informa tion Online using Patient Portal and [employer] Apps Indication:Former smoker Start:13-Oct-2021 Instruction Type:Patient Education Patient Instructions Indication:Former smoker Start:01-Sep-2021 Instruction Type:Provider Instructions for Treatment How to Access Health Informa tion Online using Patient Portal and [employer]rd [employer] Indication:Former smoker Start:01-Sep-2021 Instruction Type:Patient Education Patient Instructions Indication:BMI 28.0-28.9,adult Start:05-May-2021 Instruction Type:Provider Instructions for Treatment How to Access Health Informa tion Online using Patient Portal and [employer]rd [employer] Apps Indication:BMI 28.0-28.9,adult Start:05-May-2021 Instruction Type:Patient Education Patient Instructions Indication:Former smoker Start:08-Mar-2021 Instruction Type:Provider Instructions for Treatment How to Access Health Informa tion Online using Patient Portal and [employer]rd [employer] Apps Indication:Former smoker Start:08-Mar-2021 Instruction Type:Patient Education Patient Instructions Indication:BMI 29.0-29.9,adult Start:18-Feb-2021 Instruction Type:Provider Instructions for Treatment How to Access Health Informa tion Online using Patient Portal and [employer]rd [employer] Apps Indication:BMI 29.0-29.9,adult Start:18-Feb-2021 Instruction Type:Patient Education Patient Instructions Indication:BMI 28.0-28.9,adult Start:07-Jan-2021 Instruction Type:Provider Instructions for Treatment How to Access Health Informa tion Online using Patient Portal and [employer]rd [employer] Apps Indication:BMI 28.0-28.9,adult Start:07-Jan-2021 Instruction Type:Patient Education Patient Instructions Indication:Former smoker Start:21-Oct-2020 Instruction Type:Provider Instructions for Treatment How to Access Health Informa tion Online using Patient Portal and [employer]rd [employer] Apps Indication:Former smoker Start:21-Oct-2020 Instruction Type:Patient Education Patient Instructions Indication:BMI 28.0-28.9,adult Start:30-Sep-2020 Instruction Type:Provider Instructions for Treatment How to Access Health Informa tion Online using Patient Portal and [employer]rd [employer] Apps Indication:BMI 28.0-28.9,adult Start:30-Sep-2020 Instruction Type:Patient Education Patient Instructions Indication:Former smoker Start:23-Sep-2020 Instruction Type:Provider Instructions for Treatment How to Access Health Informa tion Online using Patient Portal and [employer]rd [employer] Apps Indication:Hyperglycemia Start:23-Sep-2020 Instruction Type:Patient Education How to Access Health Informa tion Online using Patient Portal and [employer]rd [employer] Apps Indication:Former smoker Start:05-Aug-2020 Instruction Type:Patient Education Patient Instructions Indication:Former smoker Start:05-Aug-2020 Instruction Type:Provider Instructions for Treatment How to Access Health Informa tion Online using Patient Portal and [employer] Apps Indication:Former smoker Start:29-Jun-2020 Instruction Type:Patient Education Patient Instructions Indication:Former smoker Start:29-Jun-2020 Instruction Type:Provider Instructions for Treatment How to Access Health Informa tion Online using Patient Portal and [employer] Apps Indication:Former smoker Start:24-Jun-2020 Instruction Type:Patient Education Patient Instructions Indication:Former smoker Start:24-Jun-2020 Instruction Type:Provider Instructions for Treatment Patient Instructions Indication:Former smoker Start:25-Mar-2020 Instruction Type:Provider Instructions for Treatment How to Access Health Informa tion Online using Patient Portal and [employer] Apps Indication:Former smoker Start:25-Mar-2020 Instruction Type:Patient Education How to Access Health Informa tion Online using Patient Portal and [employer] Apps Indication:Former smoker Start:27-Feb-2020 Instruction Type:Patient Education Patient Instructions Indication:Former smoker Start:27-Feb-2020 Instruction Type:Provider Instructions for Treatment How to access health informa tion online Indication:Former smoker Start:18-Feb-2020 Instruction Type:Patient Education How to access health informa tion online - Detail Indication:Former smoker Start:18-Feb-2020 Instruction Type:Patient Education Patient Instructions Indication:Former smoker Start:18-Feb-2020 Instruction Type:Provider Instructions for Treatment How to access health informa tion online Indication:Former smoker Start:11-Feb-2020 Instruction Type:Patient Education How to access health informa tion online - Detail Indication:Former smoker Start:11-Feb-2020 Instruction Type:Patient Education Patient Instructions Indication:Vitamin B12 deficiency Start:11-Feb-2020 Instruction Type:Provider Instructions for Treatment How to access health informa tion online Indication:Former smoker Start:28-Jan-2020 Instruction Type:Patient Education How to access health informa tion online - Detail Indication:Former smoker Start:28-Jan-2020 Instruction Type:Patient Education Patient Instructions Indication:Former smoker Start:28-Jan-2020 Instruction Type:Provider Instructions for Treatment How to access health informa tion online Indication:BMI 29.0-29.9,adult Start:24-Jan-2020 Instruction Type:Patient Education How to access health informa tion online - Detail Indication:BMI 29.0-29.9,adult Start:24-Jan-2020 Instruction Type:Patient Education Patient Instructions Indication:BMI 29.0-29.9,adult Start:24-Jan-2020 Instruction Type:Provider Instructions for Treatment How to access health informa tion online Indication:BMI 29.0-29.9,adult Start:09-Dec-2019 Instruction Type:Patient Education How to access health informa tion online - Detail Indication:BMI 29.0-29.9,adult Start:09-Dec-2019 Instruction Type:Patient Education Patient Instructions Indication:BMI 29.0-29.9,adult Start:09-Dec-2019 Instruction Type:Provider Instructions for Treatment How to access health informa tion online Indication:Former smoker Start:04-Dec-2019 Instruction Type:Patient Education How to access health informa tion online - Detail Indication:Former smoker Start:04-Dec-2019 Instruction Type:Patient Education Patient Instructions Indication:BMI 29.0-29.9,adult Start:04-Dec-2019 Instruction Type:Provider Instructions for Treatment How to access health informa tion online Indication:Former smoker Start:14-Oct-2019 Instruction Type:Patient Education How to access health informa tion online - Detail Indication:Former smoker Start:14-Oct-2019 Instruction Type:Patient Education Patient Instructions Indication:Former smoker Start:14-Oct-2019 Instruction Type:Provider Instructions for Treatment How to access health informa tion online Indication:Former smoker Start:11-Oct-2019 Instruction Type:Patient Education How to access health informa tion online - Detail Indication:Former smoker Start:11-Oct-2019 Instruction Type:Patient Education Patient Instructions Indication:Former smoker Start:11-Oct-2019 Instruction Type:Provider Instructions for Treatment How to access health informa tion online Indication:BMI 29.0-29.9,adult Start:13-Sep-2019 Instruction Type:Patient Education How to access health informa tion online - Detail Indication:BMI 29.0-29.9,adult Start:13-Sep-2019 Instruction Type:Patient Education Patient Instructions Indication:BMI 29.0-29.9,adult Start:13-Sep-2019 Instruction Type:Provider Instructions for Treatment How to access health informa tion online Indication:Former smoker Start:27-Aug-2019 Instruction Type:Patient Education How to access health informa tion online - Detail Indication:Former smoker Start:27-Aug-2019 Instruction Type:Patient Education Patient Instructions Indication:BMI 29.0-29.9,adult Start:27-Aug-2019 Instruction Type:Provider Instructions for Treatment How to access health informa tion online Indication:Former smoker Start:06-Aug-2019 Instruction Type:Patient Education How to access health informa tion online - Detail Indication:Former smoker Start:06-Aug-2019 Instruction Type:Patient Education Patient Instructions Indication:BMI 29.0-29.9,adult Start:06-Aug-2019 Instruction Type:Provider Instructions for Treatment How to access health informa tion online Indication:BMI 30.0-30.9,adult Start:02-Aug-2019 Instruction Type:Patient Education How to access health informa tion online - Detail Indication:BMI 30.0-30.9,adult Start:02-Aug-2019 Instruction Type:Patient Education Patient Instructions Indication:BMI 30.0-30.9,adult Start:02-Aug-2019 Instruction Type:Provider Instructions for Treatment How to access health informa tion online Indication:BMI 30.0-30.9,adult Start:06-Apr-2018 Instruction Type:Patient Education How to access health informa tion online - Detail Indication:BMI 30.0-30.9,adult Start:06-Apr-2018 Instruction Type:Patient Education Patient Instructions Indication:BMI 30.0-30.9,adult Start:06-Apr-2018 Instruction Type:Provider Instructions for Treatment How to access health informa tion online Indication:Former smoker Start:08-Dec-2017 Instruction Type:Patient Education How to access health informa tion online - Detail Indication:Former smoker Start:08-Dec-2017 Instruction Type:Patient Education Patient Instructions Indication:Former smoker Start:08-Dec-2017 Instruction Type:Provider Instructions for Treatment How to access health informa tion online Indication:Hypertension Start:28-Aug-2017 Instruction Type:Patient Education How to access health informa tion online - Detail Indication:Hypertension Start:28-Aug-2017 Instruction Type:Patient Education Patient Instructions Indication:Hypertension Start:28-Aug-2017 Instruction Type:Provider Instructions for Treatment How to access health informa tion online Indication:Hypertension Start:26-Jun-2017 Instruction Type:Patient Education How to access health informa tion online - Detail Indication:Hypertension Start:26-Jun-2017 Instruction Type:Patient Education Patient Instructions Indication:Hypertension Start:26-Jun-2017 Instruction Type:Provider Instructions for Treatment [facility]; [facility] Work Phone: Instructions* Name Dates Details Patient Instructions Indication:BMI 29.0-29.9,adult Start:06-Jun-2022 Instruction Type:Provider Instructions for Treatment How to Access Health Informa tion Online using Patient Portal and [employer]rd [employer] Apps Indication:BMI 29.0-29.9,adult Start:06-Jun-2022 Instruction Type:Patient Education Patient Instructions Indication:Former smoker Start:13-May-2022 Instruction Type:Provider Instructions for Treatment How to Access Health Informa tion Online using Patient Portal and [employer]rd [employer] Apps Indication:Former smoker Start:13-May-2022 Instruction Type:Patient Education Patient Instructions Indication:BMI 29.0-29.9,adult Start:28-Mar-2022 Instruction Type:Provider Instructions for Treatment How to Access Health Informa tion Online using Patient Portal and [employer]rd [employer] Apps Indication:BMI 29.0-29.9,adult Start:28-Mar-2022 Instruction Type:Patient Education Patient Instructions Indication:Former smoker Start:13-Oct-2021 Instruction Type:Provider Instructions for Treatment How to Access Health Informa tion Online using Patient Portal and [employer]rd [employer] Apps Indication:Former smoker Start:13-Oct-2021 Instruction Type:Patient Education Patient Instructions Indication:Former smoker Start:01-Sep-2021 Instruction Type:Provider Instructions for Treatment How to Access Health Informa tion Online using Patient Portal and [employer] Apps Indication:Former smoker Start:01-Sep-2021 Instruction Type:Patient Education Patient Instructions Indication:BMI 28.0-28.9,adult Start:05-May-2021 Instruction Type:Provider Instructions for Treatment How to Access Health Informa tion Online using Patient Portal and [employer]rd [employer] Apps Indication:BMI 28.0-28.9,adult Start:05-May-2021 Instruction Type:Patient Education Patient Instructions Indication:Former smoker Start:08-Mar-2021 Instruction Type:Provider Instructions for Treatment How to Access Health Informa tion Online using Patient Portal and [employer]rd [employer] Apps Indication:Former smoker Start:08-Mar-2021 Instruction Type:Patient Education Patient Instructions Indication:BMI 29.0-29.9,adult Start:18-Feb-2021 Instruction Type:Provider Instructions for Treatment How to Access Health Informa tion Online using Patient Portal and [employer]rd [employer] Apps Indication:BMI 29.0-29.9,adult Start:18-Feb-2021 Instruction Type:Patient Education Patient Instructions Indication:BMI 28.0-28.9,adult Start:07-Jan-2021 Instruction Type:Provider Instructions for Treatment How to Access Health Informa tion Online using Patient Portal and [employer] Apps Indication:BMI 28.0-28.9,adult Start:07-Jan-2021 Instruction Type:Patient Education Patient Instructions Indication:Former smoker Start:21-Oct-2020 Instruction Type:Provider Instructions for Treatment How to Access Health Informa tion Online using Patient Portal and [employer] Apps Indication:Former smoker Start:21-Oct-2020 Instruction Type:Patient Education Patient Instructions Indication:BMI 28.0-28.9,adult Start:30-Sep-2020 Instruction Type:Provider Instructions for Treatment How to Access Health Informa tion Online using Patient Portal and [employer] Apps Indication:BMI 28.0-28.9,adult Start:30-Sep-2020 Instruction Type:Patient Education Patient Instructions Indication:Former smoker Start:23-Sep-2020 Instruction Type:Provider Instructions for Treatment How to Access Health Informa tion Online using Patient Portal and [employer] Apps Indication:Hyperglycemia Start:23-Sep-2020 Instruction Type:Patient Education How to Access Health Informa tion Online using Patient Portal and [employer] Apps Indication:Former smoker Start:05-Aug-2020 Instruction Type:Patient Education Patient Instructions Indication:Former smoker Start:05-Aug-2020 Instruction Type:Provider Instructions for Treatment How to Access Health Informa tion Online using Patient Portal and [employer] Apps Indication:Former smoker Start:29-Jun-2020 Instruction Type:Patient Education Patient Instructions Indication:Former smoker Start:29-Jun-2020 Instruction Type:Provider Instructions for Treatment How to Access Health Informa tion Online using Patient Portal and [employer] Apps Indication:Former smoker Start:24-Jun-2020 Instruction Type:Patient Education Patient Instructions Indication:Former smoker Start:24-Jun-2020 Instruction Type:Provider Instructions for Treatment Patient Instructions Indication:Former smoker Start:25-Mar-2020 Instruction Type:Provider Instructions for Treatment How to Access Health Informa tion Online using Patient Portal and [employer] Apps Indication:Former smoker Start:25-Mar-2020 Instruction Type:Patient Education How to Access Health Informa tion Online using Patient Portal and [employer] Apps Indication:Former smoker Start:27-Feb-2020 Instruction Type:Patient Education Patient Instructions Indication:Former smoker Start:27-Feb-2020 Instruction Type:Provider Instructions for Treatment How to access health informa tion online Indication:Former smoker Start:18-Feb-2020 Instruction Type:Patient Education How to access health informa tion online - Detail Indication:Former smoker Start:18-Feb-2020 Instruction Type:Patient Education Patient Instructions Indication:Former smoker Start:18-Feb-2020 Instruction Type:Provider Instructions for Treatment How to access health informa tion online Indication:Former smoker Start:11-Feb-2020 Instruction Type:Patient Education How to access health informa tion online - Detail Indication:Former smoker Start:11-Feb-2020 Instruction Type:Patient Education Patient Instructions Indication:Vitamin B12 deficiency Start:11-Feb-2020 Instruction Type:Provider Instructions for Treatment How to access health informa tion online Indication:Former smoker Start:28-Jan-2020 Instruction Type:Patient Education How to access health informa tion online - Detail Indication:Former smoker Start:28-Jan-2020 Instruction Type:Patient Education Patient Instructions Indication:Former smoker Start:28-Jan-2020 Instruction Type:Provider Instructions for Treatment How to access health informa tion online Indication:BMI 29.0-29.9,adult Start:24-Jan-2020 Instruction Type:Patient Education How to access health informa tion online - Detail Indication:BMI 29.0-29.9,adult Start:24-Jan-2020 Instruction Type:Patient Education Patient Instructions Indication:BMI 29.0-29.9,adult Start:24-Jan-2020 Instruction Type:Provider Instructions for Treatment How to access health informa tion online Indication:BMI 29.0-29.9,adult Start:09-Dec-2019 Instruction Type:Patient Education How to access health informa tion online - Detail Indication:BMI 29.0-29.9,adult Start:09-Dec-2019 Instruction Type:Patient Education Patient Instructions Indication:BMI 29.0-29.9,adult Start:09-Dec-2019 Instruction Type:Provider Instructions for Treatment How to access health informa tion online Indication:Former smoker Start:04-Dec-2019 Instruction Type:Patient Education How to access health informa tion online - Detail Indication:Former smoker Start:04-Dec-2019 Instruction Type:Patient Education Patient Instructions Indication:BMI 29.0-29.9,adult Start:04-Dec-2019 Instruction Type:Provider Instructions for Treatment How to access health informa tion online Indication:Former smoker Start:14-Oct-2019 Instruction Type:Patient Education How to access health informa tion online - Detail Indication:Former smoker Start:14-Oct-2019 Instruction Type:Patient Education Patient Instructions Indication:Former smoker Start:14-Oct-2019 Instruction Type:Provider Instructions for Treatment How to access health informa tion online Indication:Former smoker Start:11-Oct-2019 Instruction Type:Patient Education How to access health informa tion online - Detail Indication:Former smoker Start:11-Oct-2019 Instruction Type:Patient Education Patient Instructions Indication:Former smoker Start:11-Oct-2019 Instruction Type:Provider Instructions for Treatment How to access health informa tion online Indication:BMI 29.0-29.9,adult Start:13-Sep-2019 Instruction Type:Patient Education How to access health informa tion online - Detail Indication:BMI 29.0-29.9,adult Start:13-Sep-2019 Instruction Type:Patient Education Patient Instructions Indication:BMI 29.0-29.9,adult Start:13-Sep-2019 Instruction Type:Provider Instructions for Treatment How to access health informa tion online Indication:Former smoker Start:27-Aug-2019 Instruction Type:Patient Education How to access health informa tion online - Detail Indication:Former smoker Start:27-Aug-2019 Instruction Type:Patient Education Patient Instructions Indication:BMI 29.0-29.9,adult Start:27-Aug-2019 Instruction Type:Provider Instructions for Treatment How to access health informa tion online Indication:Former smoker Start:06-Aug-2019 Instruction Type:Patient Education How to access health informa tion online - Detail Indication:Former smoker Start:06-Aug-2019 Instruction Type:Patient Education Patient Instructions Indication:BMI 29.0-29.9,adult Start:06-Aug-2019 Instruction Type:Provider Instructions for Treatment How to access health informa tion online Indication:BMI 30.0-30.9,adult Start:02-Aug-2019 Instruction Type:Patient Education How to access health informa tion online - Detail Indication:BMI 30.0-30.9,adult Start:02-Aug-2019 Instruction Type:Patient Education Patient Instructions Indication:BMI 30.0-30.9,adult Start:02-Aug-2019 Instruction Type:Provider Instructions for Treatment How to access health informa tion online Indication:BMI 30.0-30.9,adult Start:06-Apr-2018 Instruction Type:Patient Education How to access health informa tion online - Detail Indication:BMI 30.0-30.9,adult Start:06-Apr-2018 Instruction Type:Patient Education Patient Instructions Indication:BMI 30.0-30.9,adult Start:06-Apr-2018 Instruction Type:Provider Instructions for Treatment How to access health informa tion online Indication:Former smoker Start:08-Dec-2017 Instruction Type:Patient Education How to access health informa tion online - Detail Indication:Former smoker Start:08-Dec-2017 Instruction Type:Patient Education Patient Instructions Indication:Former smoker Start:08-Dec-2017 Instruction Type:Provider Instructions for Treatment How to access health informa tion online Indication:Hypertension Start:28-Aug-2017 Instruction Type:Patient Education How to access health informa tion online - Detail Indication:Hypertension Start:28-Aug-2017 Instruction Type:Patient Education Patient Instructions Indication:Hypertension Start:28-Aug-2017 Instruction Type:Provider Instructions for Treatment How to access health informa tion online Indication:Hypertension Start:26-Jun-2017 Instruction Type:Patient Education How to access health informa tion online - Detail Indication:Hypertension Start:26-Jun-2017 Instruction Type:Patient Education Patient Instructions Indication:Hypertension Start:26-Jun-2017 Instruction Type:Provider Instructions for Treatment [facility]; [facility] Work Phone: Instructions* Name Dates Details Patient Instructions Indication:BMI 29.0-29.9,adult Start:06-Jun-2022 Instruction Type:Provider Instructions for Treatment How to Access Health Informa tion Online using Patient Portal and [employer] Indication:BMI 29.0-29.9,adult Start:06-Jun-2022 Instruction Type:Patient Education Patient Instructions Indication:Former smoker Start:13-May-2022 Instruction Type:Provider Instructions for Treatment How to Access Health Informa tion Online using Patient Portal and [employer] Apps Indication:Former smoker Start:13-May-2022 Instruction Type:Patient Education Patient Instructions Indication:BMI 29.0-29.9,adult Start:28-Mar-2022 Instruction Type:Provider Instructions for Treatment How to Access Health Informa tion Online using Patient Portal and [employer] Indication:BMI 29.0-29.9,adult Start:28-Mar-2022 Instruction Type:Patient Education Patient Instructions Indication:Former smoker Start:13-Oct-2021 Instruction Type:Provider Instructions for Treatment How to Access Health Informa tion Online using Patient Portal and [employer] Apps Indication:Former smoker Start:13-Oct-2021 Instruction Type:Patient Education Patient Instructions Indication:Former smoker Start:01-Sep-2021 Instruction Type:Provider Instructions for Treatment How to Access Health Informa tion Online using Patient Portal and [employer] Apps Indication:Former smoker Start:01-Sep-2021 Instruction Type:Patient Education Patient Instructions Indication:BMI 28.0-28.9,adult Start:05-May-2021 Instruction Type:Provider Instructions for Treatment How to Access Health Informa tion Online using Patient Portal and [employer]rd [employer] Apps Indication:BMI 28.0-28.9,adult Start:05-May-2021 Instruction Type:Patient Education Patient Instructions Indication:Former smoker Start:08-Mar-2021 Instruction Type:Provider Instructions for Treatment How to Access Health Informa tion Online using Patient Portal and [employer] Apps Indication:Former smoker Start:08-Mar-2021 Instruction Type:Patient Education Patient Instructions Indication:BMI 29.0-29.9,adult Start:18-Feb-2021 Instruction Type:Provider Instructions for Treatment How to Access Health Informa tion Online using Patient Portal and [employer] Indication:BMI 29.0-29.9,adult Start:18-Feb-2021 Instruction Type:Patient Education Patient Instructions Indication:BMI 28.0-28.9,adult Start:07-Jan-2021 Instruction Type:Provider Instructions for Treatment How to Access Health Informa tion Online using Patient Portal and [employer]rd [employer] Apps Indication:BMI 28.0-28.9,adult Start:07-Jan-2021 Instruction Type:Patient Education Patient Instructions Indication:Former smoker Start:21-Oct-2020 Instruction Type:Provider Instructions for Treatment How to Access Health Informa tion Online using Patient Portal and [employer] Apps Indication:Former smoker Start:21-Oct-2020 Instruction Type:Patient Education Patient Instructions Indication:BMI 28.0-28.9,adult Start:30-Sep-2020 Instruction Type:Provider Instructions for Treatment How to Access Health Informa tion Online using Patient Portal and [employer] Apps Indication:BMI 28.0-28.9,adult Start:30-Sep-2020 Instruction Type:Patient Education Patient Instructions Indication:Former smoker Start:23-Sep-2020 Instruction Type:Provider Instructions for Treatment How to Access Health Informa tion Online using Patient Portal and [employer]rd [employer] Apps Indication:Hyperglycemia Start:23-Sep-2020 Instruction Type:Patient Education How to Access Health Informa tion Online using Patient Portal and [employer]rd [employer] Apps Indication:Former smoker Start:05-Aug-2020 Instruction Type:Patient Education Patient Instructions Indication:Former smoker Start:05-Aug-2020 Instruction Type:Provider Instructions for Treatment How to Access Health Informa tion Online using Patient Portal and [employer]rd [employer] Apps Indication:Former smoker Start:29-Jun-2020 Instruction Type:Patient Education Patient Instructions Indication:Former smoker Start:29-Jun-2020 Instruction Type:Provider Instructions for Treatment How to Access Health Informa tion Online using Patient Portal and [employer]rd [employer] Apps Indication:Former smoker Start:24-Jun-2020 Instruction Type:Patient Education Patient Instructions Indication:Former smoker Start:24-Jun-2020 Instruction Type:Provider Instructions for Treatment Patient Instructions Indication:Former smoker Start:25-Mar-2020 Instruction Type:Provider Instructions for Treatment How to Access Health Informa tion Online using Patient Portal and [employer]rd [employer] Apps Indication:Former smoker Start:25-Mar-2020 Instruction Type:Patient Education How to Access Health Informa tion Online using Patient Portal and [employer]rd [employer] Apps Indication:Former smoker Start:27-Feb-2020 Instruction Type:Patient Education Patient Instructions Indication:Former smoker Start:27-Feb-2020 Instruction Type:Provider Instructions for Treatment How to access health informa tion online Indication:Former smoker Start:18-Feb-2020 Instruction Type:Patient Education How to access health informa tion online - Detail Indication:Former smoker Start:18-Feb-2020 Instruction Type:Patient Education Patient Instructions Indication:Former smoker Start:18-Feb-2020 Instruction Type:Provider Instructions for Treatment How to access health informa tion online Indication:Former smoker Start:11-Feb-2020 Instruction Type:Patient Education How to access health informa tion online - Detail Indication:Former smoker Start:11-Feb-2020 Instruction Type:Patient Education Patient Instructions Indication:Vitamin B12 deficiency Start:11-Feb-2020 Instruction Type:Provider Instructions for Treatment How to access health informa tion online Indication:Former smoker Start:28-Jan-2020 Instruction Type:Patient Education How to access health informa tion online - Detail Indication:Former smoker Start:28-Jan-2020 Instruction Type:Patient Education Patient Instructions Indication:Former smoker Start:28-Jan-2020 Instruction Type:Provider Instructions for Treatment How to access health informa tion online Indication:BMI 29.0-29.9,adult Start:24-Jan-2020 Instruction Type:Patient Education How to access health informa tion online - Detail Indication:BMI 29.0-29.9,adult Start:24-Jan-2020 Instruction Type:Patient Education Patient Instructions Indication:BMI 29.0-29.9,adult Start:24-Jan-2020 Instruction Type:Provider Instructions for Treatment How to access health informa tion online Indication:BMI 29.0-29.9,adult Start:09-Dec-2019 Instruction Type:Patient Education How to access health informa tion online - Detail Indication:BMI 29.0-29.9,adult Start:09-Dec-2019 Instruction Type:Patient Education Patient Instructions Indication:BMI 29.0-29.9,adult Start:09-Dec-2019 Instruction Type:Provider Instructions for Treatment How to access health informa tion online Indication:Former smoker Start:04-Dec-2019 Instruction Type:Patient Education How to access health informa tion online - Detail Indication:Former smoker Start:04-Dec-2019 Instruction Type:Patient Education Patient Instructions Indication:BMI 29.0-29.9,adult Start:04-Dec-2019 Instruction Type:Provider Instructions for Treatment How to access health informa tion online Indication:Former smoker Start:14-Oct-2019 Instruction Type:Patient Education How to access health informa tion online - Detail Indication:Former smoker Start:14-Oct-2019 Instruction Type:Patient Education Patient Instructions Indication:Former smoker Start:14-Oct-2019 Instruction Type:Provider Instructions for Treatment How to access health informa tion online Indication:Former smoker Start:11-Oct-2019 Instruction Type:Patient Education How to access health informa tion online - Detail Indication:Former smoker Start:11-Oct-2019 Instruction Type:Patient Education Patient Instructions Indication:Former smoker Start:11-Oct-2019 Instruction Type:Provider Instructions for Treatment How to access health informa tion online Indication:BMI 29.0-29.9,adult Start:13-Sep-2019 Instruction Type:Patient Education How to access health informa tion online - Detail Indication:BMI 29.0-29.9,adult Start:13-Sep-2019 Instruction Type:Patient Education Patient Instructions Indication:BMI 29.0-29.9,adult Start:13-Sep-2019 Instruction Type:Provider Instructions for Treatment How to access health informa tion online Indication:Former smoker Start:27-Aug-2019 Instruction Type:Patient Education How to access health informa tion online - Detail Indication:Former smoker Start:27-Aug-2019 Instruction Type:Patient Education Patient Instructions Indication:BMI 29.0-29.9,adult Start:27-Aug-2019 Instruction Type:Provider Instructions for Treatment How to access health informa tion online Indication:Former smoker Start:06-Aug-2019 Instruction Type:Patient Education How to access health informa tion online - Detail Indication:Former smoker Start:06-Aug-2019 Instruction Type:Patient Education Patient Instructions Indication:BMI 29.0-29.9,adult Start:06-Aug-2019 Instruction Type:Provider Instructions for Treatment How to access health informa tion online Indication:BMI 30.0-30.9,adult Start:02-Aug-2019 Instruction Type:Patient Education How to access health informa tion online - Detail Indication:BMI 30.0-30.9,adult Start:02-Aug-2019 Instruction Type:Patient Education Patient Instructions Indication:BMI 30.0-30.9,adult Start:02-Aug-2019 Instruction Type:Provider Instructions for Treatment How to access health informa tion online Indication:BMI 30.0-30.9,adult Start:06-Apr-2018 Instruction Type:Patient Education How to access health informa tion online - Detail Indication:BMI 30.0-30.9,adult Start:06-Apr-2018 Instruction Type:Patient Education Patient Instructions Indication:BMI 30.0-30.9,adult Start:06-Apr-2018 Instruction Type:Provider Instructions for Treatment How to access health informa tion online Indication:Former smoker Start:08-Dec-2017 Instruction Type:Patient Education How to access health informa tion online - Detail Indication:Former smoker Start:08-Dec-2017 Instruction Type:Patient Education Patient Instructions Indication:Former smoker Start:08-Dec-2017 Instruction Type:Provider Instructions for Treatment How to access health informa tion online Indication:Hypertension Start:28-Aug-2017 Instruction Type:Patient Education How to access health informa tion online - Detail Indication:Hypertension Start:28-Aug-2017 Instruction Type:Patient Education Patient Instructions Indication:Hypertension Start:28-Aug-2017 Instruction Type:Provider Instructions for Treatment How to access health informa tion online Indication:Hypertension Start:26-Jun-2017 Instruction Type:Patient Education How to access health informa tion online - Detail Indication:Hypertension Start:26-Jun-2017 Instruction Type:Patient Education Patient Instructions Indication:Hypertension Start:26-Jun-2017 Instruction Type:Provider Instructions for Treatment [facility]; [facility] Work Phone: Instructions* Name Dates Details Patient Instructions Indication:BMI 29.0-29.9,adult Start:06-Jun-2022 Instruction Type:Provider Instructions for Treatment How to Access Health Informa tion Online using Patient Portal and [employer]rd [employer] Apps Indication:BMI 29.0-29.9,adult Start:06-Jun-2022 Instruction Type:Patient Education Patient Instructions Start:13-May-2022 Instruction Type:Provider Instructions for Treatment How to Access Health Informa tion Online using Patient Portal and [employer] Apps Start:13-May-2022 Instruction Type:Patient Education Patient Instructions Indication:BMI 29.0-29.9,adult Start:28-Mar-2022 Instruction Type:Provider Instructions for Treatment How to Access Health Informa tion Online using Patient Portal and [employer] Apps Indication:BMI 29.0-29.9,adult Start:28-Mar-2022 Instruction Type:Patient Education Patient Instructions Start:13-Oct-2021 Instruction Type:Provider Instructions for Treatment How to Access Health Informa tion Online using Patient Portal and [employer] Apps Start:13-Oct-2021 Instruction Type:Patient Education Patient Instructions Start:01-Sep-2021 Instruction Type:Provider Instructions for Treatment How to Access Health Informa tion Online using Patient Portal and [employer]rd [employer] Apps Start:01-Sep-2021 Instruction Type:Patient Education Patient Instructions Indication:BMI 28.0-28.9,adult Start:05-May-2021 Instruction Type:Provider Instructions for Treatment How to Access Health Informa tion Online using Patient Portal and [employer] Apps Indication:BMI 28.0-28.9,adult Start:05-May-2021 Instruction Type:Patient Education Patient Instructions Start:08-Mar-2021 Instruction Type:Provider Instructions for Treatment How to Access Health Informa tion Online using Patient Portal and [employer] Apps Start:08-Mar-2021 Instruction Type:Patient Education Patient Instructions Indication:BMI 29.0-29.9,adult Start:18-Feb-2021 Instruction Type:Provider Instructions for Treatment How to Access Health Informa tion Online using Patient Portal and [employer] Apps Indication:BMI 29.0-29.9,adult Start:18-Feb-2021 Instruction Type:Patient Education Patient Instructions Indication:BMI 28.0-28.9,adult Start:07-Jan-2021 Instruction Type:Provider Instructions for Treatment How to Access Health Informa tion Online using Patient Portal and [employer] Apps Indication:BMI 28.0-28.9,adult Start:07-Jan-2021 Instruction Type:Patient Education Patient Instructions Start:21-Oct-2020 Instruction Type:Provider Instructions for Treatment How to Access Health Informa tion Online using Patient Portal and [employer] Apps Start:21-Oct-2020 Instruction Type:Patient Education Patient Instructions Indication:BMI 28.0-28.9,adult Start:30-Sep-2020 Instruction Type:Provider Instructions for Treatment How to Access Health Informa tion Online using Patient Portal and [employer] Apps Indication:BMI 28.0-28.9,adult Start:30-Sep-2020 Instruction Type:Patient Education Patient Instructions Start:23-Sep-2020 Instruction Type:Provider Instructions for Treatment How to Access Health Informa tion Online using Patient Portal and [employer] Apps Indication:Hyperglycemia Start:23-Sep-2020 Instruction Type:Patient Education How to Access Health Informa tion Online using Patient Portal and [employer] Apps Start:05-Aug-2020 Instruction Type:Patient Education Patient Instructions Start:05-Aug-2020 Instruction Type:Provider Instructions for Treatment How to Access Health Informa tion Online using Patient Portal and [employer] Apps Start:29-Jun-2020 Instruction Type:Patient Education Patient Instructions Start:29-Jun-2020 Instruction Type:Provider Instructions for Treatment How to Access Health Informa tion Online using Patient Portal and [employer] Apps Start:24-Jun-2020 Instruction Type:Patient Education Patient Instructions Start:24-Jun-2020 Instruction Type:Provider Instructions for Treatment Patient Instructions Start:25-Mar-2020 Instruction Type:Provider Instructions for Treatment How to Access Health Informa tion Online using Patient Portal and [employer] Apps Start:25-Mar-2020 Instruction Type:Patient Education How to Access Health Informa tion Online using Patient Portal and [employer] Apps Start:27-Feb-2020 Instruction Type:Patient Education Patient Instructions Start:27-Feb-2020 Instruction Type:Provider Instructions for Treatment How to access health informa tion online Start:18-Feb-2020 Instruction Type:Patient Education How to access health informa tion online - Detail Start:18-Feb-2020 Instruction Type:Patient Education Patient Instructions Start:18-Feb-2020 Instruction Type:Provider Instructions for Treatment How to access health informa tion online Start:11-Feb-2020 Instruction Type:Patient Education How to access health informa tion online - Detail Start:11-Feb-2020 Instruction Type:Patient Education Patient Instructions Indication:Vitamin B12 deficiency Start:11-Feb-2020 Instruction Type:Provider Instructions for Treatment How to access health informa tion online Start:28-Jan-2020 Instruction Type:Patient Education How to access health informa tion online - Detail Start:28-Jan-2020 Instruction Type:Patient Education Patient Instructions Start:28-Jan-2020 Instruction Type:Provider Instructions for Treatment How to access health informa tion online Indication:BMI 29.0-29.9,adult Start:24-Jan-2020 Instruction Type:Patient Education How to access health informa tion online - Detail Indication:BMI 29.0-29.9,adult Start:24-Jan-2020 Instruction Type:Patient Education Patient Instructions Indication:BMI 29.0-29.9,adult Start:24-Jan-2020 Instruction Type:Provider Instructions for Treatment How to access health informa tion online Indication:BMI 29.0-29.9,adult Start:09-Dec-2019 Instruction Type:Patient Education How to access health informa tion online - Detail Indication:BMI 29.0-29.9,adult Start:09-Dec-2019 Instruction Type:Patient Education Patient Instructions Indication:BMI 29.0-29.9,adult Start:09-Dec-2019 Instruction Type:Provider Instructions for Treatment How to access health informa tion online Start:04-Dec-2019 Instruction Type:Patient Education How to access health informa tion online - Detail Start:04-Dec-2019 Instruction Type:Patient Education Patient Instructions Indication:BMI 29.0-29.9,adult Start:04-Dec-2019 Instruction Type:Provider Instructions for Treatment How to access health informa tion online Start:14-Oct-2019 Instruction Type:Patient Education How to access health informa tion online - Detail Start:14-Oct-2019 Instruction Type:Patient Education Patient Instructions Start:14-Oct-2019 Instruction Type:Provider Instructions for Treatment How to access health informa tion online Start:11-Oct-2019 Instruction Type:Patient Education How to access health informa tion online - Detail Start:11-Oct-2019 Instruction Type:Patient Education Patient Instructions Start:11-Oct-2019 Instruction Type:Provider Instructions for Treatment How to access health informa tion online Indication:BMI 29.0-29.9,adult Start:13-Sep-2019 Instruction Type:Patient Education How to access health informa tion online - Detail Indication:BMI 29.0-29.9,adult Start:13-Sep-2019 Instruction Type:Patient Education Patient Instructions Indication:BMI 29.0-29.9,adult Start:13-Sep-2019 Instruction Type:Provider Instructions for Treatment How to access health informa tion online Start:27-Aug-2019 Instruction Type:Patient Education How to access health informa tion online - Detail Start:27-Aug-2019 Instruction Type:Patient Education Patient Instructions Indication:BMI 29.0-29.9,adult Start:27-Aug-2019 Instruction Type:Provider Instructions for Treatment How to access health informa tion online Start:06-Aug-2019 Instruction Type:Patient Education How to access health informa tion online - Detail Start:06-Aug-2019 Instruction Type:Patient Education Patient Instructions Indication:BMI 29.0-29.9,adult Start:06-Aug-2019 Instruction Type:Provider Instructions for Treatment How to access health informa tion online Indication:BMI 30.0-30.9,adult Start:02-Aug-2019 Instruction Type:Patient Education How to access health informa tion online - Detail Indication:BMI 30.0-30.9,adult Start:02-Aug-2019 Instruction Type:Patient Education Patient Instructions Indication:BMI 30.0-30.9,adult Start:02-Aug-2019 Instruction Type:Provider Instructions for Treatment How to access health informa tion online Indication:BMI 30.0-30.9,adult Start:06-Apr-2018 Instruction Type:Patient Education How to access health informa tion online - Detail Indication:BMI 30.0-30.9,adult Start:06-Apr-2018 Instruction Type:Patient Education Patient Instructions Indication:BMI 30.0-30.9,adult Start:06-Apr-2018 Instruction Type:Provider Instructions for Treatment How to access health informa tion online Start:08-Dec-2017 Instruction Type:Patient Education How to access health informa tion online - Detail Start:08-Dec-2017 Instruction Type:Patient Education Patient Instructions Start:08-Dec-2017 Instruction Type:Provider Instructions for Treatment How to access health informa tion online Indication:Hypertension Start:28-Aug-2017 Instruction Type:Patient Education How to access health informa tion online - Detail Indication:Hypertension Start:28-Aug-2017 Instruction Type:Patient Education Patient Instructions Indication:Hypertension Start:28-Aug-2017 Instruction Type:Provider Instructions for Treatment How to access health informa tion online Indication:Hypertension Start:26-Jun-2017 Instruction Type:Patient Education How to access health informa tion online - Detail Indication:Hypertension Start:26-Jun-2017 Instruction Type:Patient Education Patient Instructions Indication:Hypertension Start:26-Jun-2017 Instruction Type:Provider Instructions for Treatment [facility]; [facility] Work Phone: Instructions* Name Dates Details Patient Instructions Indication:Former smoker Start:13-Jun-2022 Instruction Type:Provider Instructions for Treatment How to Access Health Informa tion Online using Patient Portal and [employer] Apps Indication:Former smoker Start:13-Jun-2022 Instruction Type:Patient Education Patient Instructions Indication:BMI 29.0-29.9,adult Start:06-Jun-2022 Instruction Type:Provider Instructions for Treatment How to Access Health Informa tion Online using Patient Portal and [employer] Apps Indication:BMI 29.0-29.9,adult Start:06-Jun-2022 Instruction Type:Patient Education Patient Instructions Indication:Former smoker Start:13-May-2022 Instruction Type:Provider Instructions for Treatment How to Access Health Informa tion Online using Patient Portal and [employer] Apps Indication:Former smoker Start:13-May-2022 Instruction Type:Patient Education Patient Instructions Indication:BMI 29.0-29.9,adult Start:28-Mar-2022 Instruction Type:Provider Instructions for Treatment How to Access Health Informa tion Online using Patient Portal and [employer] Apps Indication:BMI 29.0-29.9,adult Start:28-Mar-2022 Instruction Type:Patient Education Patient Instructions Indication:Former smoker Start:13-Oct-2021 Instruction Type:Provider Instructions for Treatment How to Access Health Informa tion Online using Patient Portal and [employer] Apps Indication:Former smoker Start:13-Oct-2021 Instruction Type:Patient Education Patient Instructions Indication:Former smoker Start:01-Sep-2021 Instruction Type:Provider Instructions for Treatment How to Access Health Informa tion Online using Patient Portal and [employer] Apps Indication:Former smoker Start:01-Sep-2021 Instruction Type:Patient Education Patient Instructions Indication:BMI 28.0-28.9,adult Start:05-May-2021 Instruction Type:Provider Instructions for Treatment How to Access Health Informa tion Online using Patient Portal and [employer] Apps Indication:BMI 28.0-28.9,adult Start:05-May-2021 Instruction Type:Patient Education Patient Instructions Indication:Former smoker Start:08-Mar-2021 Instruction Type:Provider Instructions for Treatment How to Access Health Informa tion Online using Patient Portal and [employer] Apps Indication:Former smoker Start:08-Mar-2021 Instruction Type:Patient Education Patient Instructions Indication:BMI 29.0-29.9,adult Start:18-Feb-2021 Instruction Type:Provider Instructions for Treatment How to Access Health Informa tion Online using Patient Portal and [employer] Apps Indication:BMI 29.0-29.9,adult Start:18-Feb-2021 Instruction Type:Patient Education Patient Instructions Indication:BMI 28.0-28.9,adult Start:07-Jan-2021 Instruction Type:Provider Instructions for Treatment How to Access Health Informa tion Online using Patient Portal and [employer] Apps Indication:BMI 28.0-28.9,adult Start:07-Jan-2021 Instruction Type:Patient Education Patient Instructions Indication:Former smoker Start:21-Oct-2020 Instruction Type:Provider Instructions for Treatment How to Access Health Informa tion Online using Patient Portal and [employer] Apps Indication:Former smoker Start:21-Oct-2020 Instruction Type:Patient Education Patient Instructions Indication:BMI 28.0-28.9,adult Start:30-Sep-2020 Instruction Type:Provider Instructions for Treatment How to Access Health Informa tion Online using Patient Portal and [employer] Apps Indication:BMI 28.0-28.9,adult Start:30-Sep-2020 Instruction Type:Patient Education Patient Instructions Indication:Former smoker Start:23-Sep-2020 Instruction Type:Provider Instructions for Treatment How to Access Health Informa tion Online using Patient Portal and [employer] Apps Indication:Hyperglycemia Start:23-Sep-2020 Instruction Type:Patient Education How to Access Health Informa tion Online using Patient Portal and [employer] Apps Indication:Former smoker Start:05-Aug-2020 Instruction Type:Patient Education Patient Instructions Indication:Former smoker Start:05-Aug-2020 Instruction Type:Provider Instructions for Treatment How to Access Health Informa tion Online using Patient Portal and [employer] Apps Indication:Former smoker Start:29-Jun-2020 Instruction Type:Patient Education Patient Instructions Indication:Former smoker Start:29-Jun-2020 Instruction Type:Provider Instructions for Treatment How to Access Health Informa tion Online using Patient Portal and [employer] Apps Indication:Former smoker Start:24-Jun-2020 Instruction Type:Patient Education Patient Instructions Indication:Former smoker Start:24-Jun-2020 Instruction Type:Provider Instructions for Treatment Patient Instructions Indication:Former smoker Start:25-Mar-2020 Instruction Type:Provider Instructions for Treatment How to Access Health Informa tion Online using Patient Portal and [employer] Apps Indication:Former smoker Start:25-Mar-2020 Instruction Type:Patient Education How to Access Health Informa tion Online using Patient Portal and [employer] Apps Indication:Former smoker Start:27-Feb-2020 Instruction Type:Patient Education Patient Instructions Indication:Former smoker Start:27-Feb-2020 Instruction Type:Provider Instructions for Treatment How to access health informa tion online Indication:Former smoker Start:18-Feb-2020 Instruction Type:Patient Education How to access health informa tion online - Detail Indication:Former smoker Start:18-Feb-2020 Instruction Type:Patient Education Patient Instructions Indication:Former smoker Start:18-Feb-2020 Instruction Type:Provider Instructions for Treatment How to access health informa tion online Indication:Former smoker Start:11-Feb-2020 Instruction Type:Patient Education How to access health informa tion online - Detail Indication:Former smoker Start:11-Feb-2020 Instruction Type:Patient Education Patient Instructions Indication:Vitamin B12 deficiency Start:11-Feb-2020 Instruction Type:Provider Instructions for Treatment How to access health informa tion online Indication:Former smoker Start:28-Jan-2020 Instruction Type:Patient Education How to access health informa tion online - Detail Indication:Former smoker Start:28-Jan-2020 Instruction Type:Patient Education Patient Instructions Indication:Former smoker Start:28-Jan-2020 Instruction Type:Provider Instructions for Treatment How to access health informa tion online Indication:BMI 29.0-29.9,adult Start:24-Jan-2020 Instruction Type:Patient Education How to access health informa tion online - Detail Indication:BMI 29.0-29.9,adult Start:24-Jan-2020 Instruction Type:Patient Education Patient Instructions Indication:BMI 29.0-29.9,adult Start:24-Jan-2020 Instruction Type:Provider Instructions for Treatment How to access health informa tion online Indication:BMI 29.0-29.9,adult Start:09-Dec-2019 Instruction Type:Patient Education How to access health informa tion online - Detail Indication:BMI 29.0-29.9,adult Start:09-Dec-2019 Instruction Type:Patient Education Patient Instructions Indication:BMI 29.0-29.9,adult Start:09-Dec-2019 Instruction Type:Provider Instructions for Treatment How to access health informa tion online Indication:Former smoker Start:04-Dec-2019 Instruction Type:Patient Education How to access health informa tion online - Detail Indication:Former smoker Start:04-Dec-2019 Instruction Type:Patient Education Patient Instructions Indication:BMI 29.0-29.9,adult Start:04-Dec-2019 Instruction Type:Provider Instructions for Treatment How to access health informa tion online Indication:Former smoker Start:14-Oct-2019 Instruction Type:Patient Education How to access health informa tion online - Detail Indication:Former smoker Start:14-Oct-2019 Instruction Type:Patient Education Patient Instructions Indication:Former smoker Start:14-Oct-2019 Instruction Type:Provider Instructions for Treatment How to access health informa tion online Indication:Former smoker Start:11-Oct-2019 Instruction Type:Patient Education How to access health informa tion online - Detail Indication:Former smoker Start:11-Oct-2019 Instruction Type:Patient Education Patient Instructions Indication:Former smoker Start:11-Oct-2019 Instruction Type:Provider Instructions for Treatment How to access health informa tion online Indication:BMI 29.0-29.9,adult Start:13-Sep-2019 Instruction Type:Patient Education How to access health informa tion online - Detail Indication:BMI 29.0-29.9,adult Start:13-Sep-2019 Instruction Type:Patient Education Patient Instructions Indication:BMI 29.0-29.9,adult Start:13-Sep-2019 Instruction Type:Provider Instructions for Treatment How to access health informa tion online Indication:Former smoker Start:27-Aug-2019 Instruction Type:Patient Education How to access health informa tion online - Detail Indication:Former smoker Start:27-Aug-2019 Instruction Type:Patient Education Patient Instructions Indication:BMI 29.0-29.9,adult Start:27-Aug-2019 Instruction Type:Provider Instructions for Treatment How to access health informa tion online Indication:Former smoker Start:06-Aug-2019 Instruction Type:Patient Education How to access health informa tion online - Detail Indication:Former smoker Start:06-Aug-2019 Instruction Type:Patient Education Patient Instructions Indication:BMI 29.0-29.9,adult Start:06-Aug-2019 Instruction Type:Provider Instructions for Treatment How to access health informa tion online Indication:BMI 30.0-30.9,adult Start:02-Aug-2019 Instruction Type:Patient Education How to access health informa tion online - Detail Indication:BMI 30.0-30.9,adult Start:02-Aug-2019 Instruction Type:Patient Education Patient Instructions Indication:BMI 30.0-30.9,adult Start:02-Aug-2019 Instruction Type:Provider Instructions for Treatment How to access health informa tion online Indication:BMI 30.0-30.9,adult Start:06-Apr-2018 Instruction Type:Patient Education How to access health informa tion online - Detail Indication:BMI 30.0-30.9,adult Start:06-Apr-2018 Instruction Type:Patient Education Patient Instructions Indication:BMI 30.0-30.9,adult Start:06-Apr-2018 Instruction Type:Provider Instructions for Treatment How to access health informa tion online Indication:Former smoker Start:08-Dec-2017 Instruction Type:Patient Education How to access health informa tion online - Detail Indication:Former smoker Start:08-Dec-2017 Instruction Type:Patient Education Patient Instructions Indication:Former smoker Start:08-Dec-2017 Instruction Type:Provider Instructions for Treatment How to access health informa tion online Indication:Hypertension Start:28-Aug-2017 Instruction Type:Patient Education How to access health informa tion online - Detail Indication:Hypertension Start:28-Aug-2017 Instruction Type:Patient Education Patient Instructions Indication:Hypertension Start:28-Aug-2017 Instruction Type:Provider Instructions for Treatment How to access health informa tion online Indication:Hypertension Start:26-Jun-2017 Instruction Type:Patient Education How to access health informa tion online - Detail Indication:Hypertension Start:26-Jun-2017 Instruction Type:Patient Education Patient Instructions Indication:Hypertension Start:26-Jun-2017 Instruction Type:Provider Instructions for Treatment [facility]; [facility] Work Phone: Instructions* Name Dates Details Patient Instructions Indication:Former smoker Start:13-Jun-2022 Instruction Type:Provider Instructions for Treatment How to Access Health Informa tion Online using Patient Portal and [employer]rd [employer] Apps Indication:Former smoker Start:13-Jun-2022 Instruction Type:Patient Education Patient Instructions Indication:BMI 29.0-29.9,adult Start:06-Jun-2022 Instruction Type:Provider Instructions for Treatment How to Access Health Informa tion Online using Patient Portal and [employer]rd [employer] Apps Indication:BMI 29.0-29.9,adult Start:06-Jun-2022 Instruction Type:Patient Education Patient Instructions Indication:Former smoker Start:13-May-2022 Instruction Type:Provider Instructions for Treatment How to Access Health Informa tion Online using Patient Portal and [employer]rd [employer] Apps Indication:Former smoker Start:13-May-2022 Instruction Type:Patient Education Patient Instructions Indication:BMI 29.0-29.9,adult Start:28-Mar-2022 Instruction Type:Provider Instructions for Treatment How to Access Health Informa tion Online using Patient Portal and [employer]rd [employer] Apps Indication:BMI 29.0-29.9,adult Start:28-Mar-2022 Instruction Type:Patient Education Patient Instructions Indication:Former smoker Start:13-Oct-2021 Instruction Type:Provider Instructions for Treatment How to Access Health Informa tion Online using Patient Portal and [employer]rd [employer] Apps Indication:Former smoker Start:13-Oct-2021 Instruction Type:Patient Education Patient Instructions Indication:Former smoker Start:01-Sep-2021 Instruction Type:Provider Instructions for Treatment How to Access Health Informa tion Online using Patient Portal and [employer]rd [employer] Apps Indication:Former smoker Start:01-Sep-2021 Instruction Type:Patient Education Patient Instructions Indication:BMI 28.0-28.9,adult Start:05-May-2021 Instruction Type:Provider Instructions for Treatment How to Access Health Informa tion Online using Patient Portal and [employer]rd [employer] Apps Indication:BMI 28.0-28.9,adult Start:05-May-2021 Instruction Type:Patient Education Patient Instructions Indication:Former smoker Start:08-Mar-2021 Instruction Type:Provider Instructions for Treatment How to Access Health Informa tion Online using Patient Portal and [employer] Apps Indication:Former smoker Start:08-Mar-2021 Instruction Type:Patient Education Patient Instructions Indication:BMI 29.0-29.9,adult Start:18-Feb-2021 Instruction Type:Provider Instructions for Treatment How to Access Health Informa tion Online using Patient Portal and [employer] Apps Indication:BMI 29.0-29.9,adult Start:18-Feb-2021 Instruction Type:Patient Education Patient Instructions Indication:BMI 28.0-28.9,adult Start:07-Jan-2021 Instruction Type:Provider Instructions for Treatment How to Access Health Informa tion Online using Patient Portal and [employer]rd [employer] Apps Indication:BMI 28.0-28.9,adult Start:07-Jan-2021 Instruction Type:Patient Education Patient Instructions Indication:Former smoker Start:21-Oct-2020 Instruction Type:Provider Instructions for Treatment How to Access Health Informa tion Online using Patient Portal and [employer] Apps Indication:Former smoker Start:21-Oct-2020 Instruction Type:Patient Education Patient Instructions Indication:BMI 28.0-28.9,adult Start:30-Sep-2020 Instruction Type:Provider Instructions for Treatment How to Access Health Informa tion Online using Patient Portal and [employer] Apps Indication:BMI 28.0-28.9,adult Start:30-Sep-2020 Instruction Type:Patient Education Patient Instructions Indication:Former smoker Start:23-Sep-2020 Instruction Type:Provider Instructions for Treatment How to Access Health Informa tion Online using Patient Portal and [employer]rd [employer] Apps Indication:Hyperglycemia Start:23-Sep-2020 Instruction Type:Patient Education How to Access Health Informa tion Online using Patient Portal and [employer] Apps Indication:Former smoker Start:05-Aug-2020 Instruction Type:Patient Education Patient Instructions Indication:Former smoker Start:05-Aug-2020 Instruction Type:Provider Instructions for Treatment How to Access Health Informa tion Online using Patient Portal and [employer] Apps Indication:Former smoker Start:29-Jun-2020 Instruction Type:Patient Education Patient Instructions Indication:Former smoker Start:29-Jun-2020 Instruction Type:Provider Instructions for Treatment How to Access Health Informa tion Online using Patient Portal and [employer] Apps Indication:Former smoker Start:24-Jun-2020 Instruction Type:Patient Education Patient Instructions Indication:Former smoker Start:24-Jun-2020 Instruction Type:Provider Instructions for Treatment Patient Instructions Indication:Former smoker Start:25-Mar-2020 Instruction Type:Provider Instructions for Treatment How to Access Health Informa tion Online using Patient Portal and [employer] Apps Indication:Former smoker Start:25-Mar-2020 Instruction Type:Patient Education How to Access Health Informa tion Online using Patient Portal and [employer] Apps Indication:Former smoker Start:27-Feb-2020 Instruction Type:Patient Education Patient Instructions Indication:Former smoker Start:27-Feb-2020 Instruction Type:Provider Instructions for Treatment How to access health informa tion online Indication:Former smoker Start:18-Feb-2020 Instruction Type:Patient Education How to access health informa tion online - Detail Indication:Former smoker Start:18-Feb-2020 Instruction Type:Patient Education Patient Instructions Indication:Former smoker Start:18-Feb-2020 Instruction Type:Provider Instructions for Treatment How to access health informa tion online Indication:Former smoker Start:11-Feb-2020 Instruction Type:Patient Education How to access health informa tion online - Detail Indication:Former smoker Start:11-Feb-2020 Instruction Type:Patient Education Patient Instructions Indication:Vitamin B12 deficiency Start:11-Feb-2020 Instruction Type:Provider Instructions for Treatment How to access health informa tion online Indication:Former smoker Start:28-Jan-2020 Instruction Type:Patient Education How to access health informa tion online - Detail Indication:Former smoker Start:28-Jan-2020 Instruction Type:Patient Education Patient Instructions Indication:Former smoker Start:28-Jan-2020 Instruction Type:Provider Instructions for Treatment How to access health informa tion online Indication:BMI 29.0-29.9,adult Start:24-Jan-2020 Instruction Type:Patient Education How to access health informa tion online - Detail Indication:BMI 29.0-29.9,adult Start:24-Jan-2020 Instruction Type:Patient Education Patient Instructions Indication:BMI 29.0-29.9,adult Start:24-Jan-2020 Instruction Type:Provider Instructions for Treatment How to access health informa tion online Indication:BMI 29.0-29.9,adult Start:09-Dec-2019 Instruction Type:Patient Education How to access health informa tion online - Detail Indication:BMI 29.0-29.9,adult Start:09-Dec-2019 Instruction Type:Patient Education Patient Instructions Indication:BMI 29.0-29.9,adult Start:09-Dec-2019 Instruction Type:Provider Instructions for Treatment How to access health informa tion online Indication:Former smoker Start:04-Dec-2019 Instruction Type:Patient Education How to access health informa tion online - Detail Indication:Former smoker Start:04-Dec-2019 Instruction Type:Patient Education Patient Instructions Indication:BMI 29.0-29.9,adult Start:04-Dec-2019 Instruction Type:Provider Instructions for Treatment How to access health informa tion online Indication:Former smoker Start:14-Oct-2019 Instruction Type:Patient Education How to access health informa tion online - Detail Indication:Former smoker Start:14-Oct-2019 Instruction Type:Patient Education Patient Instructions Indication:Former smoker Start:14-Oct-2019 Instruction Type:Provider Instructions for Treatment How to access health informa tion online Indication:Former smoker Start:11-Oct-2019 Instruction Type:Patient Education How to access health informa tion online - Detail Indication:Former smoker Start:11-Oct-2019 Instruction Type:Patient Education Patient Instructions Indication:Former smoker Start:11-Oct-2019 Instruction Type:Provider Instructions for Treatment How to access health informa tion online Indication:BMI 29.0-29.9,adult Start:13-Sep-2019 Instruction Type:Patient Education How to access health informa tion online - Detail Indication:BMI 29.0-29.9,adult Start:13-Sep-2019 Instruction Type:Patient Education Patient Instructions Indication:BMI 29.0-29.9,adult Start:13-Sep-2019 Instruction Type:Provider Instructions for Treatment How to access health informa tion online Indication:Former smoker Start:27-Aug-2019 Instruction Type:Patient Education How to access health informa tion online - Detail Indication:Former smoker Start:27-Aug-2019 Instruction Type:Patient Education Patient Instructions Indication:BMI 29.0-29.9,adult Start:27-Aug-2019 Instruction Type:Provider Instructions for Treatment How to access health informa tion online Indication:Former smoker Start:06-Aug-2019 Instruction Type:Patient Education How to access health informa tion online - Detail Indication:Former smoker Start:06-Aug-2019 Instruction Type:Patient Education Patient Instructions Indication:BMI 29.0-29.9,adult Start:06-Aug-2019 Instruction Type:Provider Instructions for Treatment How to access health informa tion online Indication:BMI 30.0-30.9,adult Start:02-Aug-2019 Instruction Type:Patient Education How to access health informa tion online - Detail Indication:BMI 30.0-30.9,adult Start:02-Aug-2019 Instruction Type:Patient Education Patient Instructions Indication:BMI 30.0-30.9,adult Start:02-Aug-2019 Instruction Type:Provider Instructions for Treatment How to access health informa tion online Indication:BMI 30.0-30.9,adult Start:06-Apr-2018 Instruction Type:Patient Education How to access health informa tion online - Detail Indication:BMI 30.0-30.9,adult Start:06-Apr-2018 Instruction Type:Patient Education Patient Instructions Indication:BMI 30.0-30.9,adult Start:06-Apr-2018 Instruction Type:Provider Instructions for Treatment How to access health informa tion online Indication:Former smoker Start:08-Dec-2017 Instruction Type:Patient Education How to access health informa tion online - Detail Indication:Former smoker Start:08-Dec-2017 Instruction Type:Patient Education Patient Instructions Indication:Former smoker Start:08-Dec-2017 Instruction Type:Provider Instructions for Treatment How to access health informa tion online Indication:Hypertension Start:28-Aug-2017 Instruction Type:Patient Education How to access health informa tion online - Detail Indication:Hypertension Start:28-Aug-2017 Instruction Type:Patient Education Patient Instructions Indication:Hypertension Start:28-Aug-2017 Instruction Type:Provider Instructions for Treatment How to access health informa tion online Indication:Hypertension Start:26-Jun-2017 Instruction Type:Patient Education How to access health informa tion online - Detail Indication:Hypertension Start:26-Jun-2017 Instruction Type:Patient Education Patient Instructions Indication:Hypertension Start:26-Jun-2017 Instruction Type:Provider Instructions for Treatment [facility]; [facility] Work Phone: Instructions* Name Dates Details Patient Instructions Indication:Former smoker Start:26-Sep-2022 Instruction Type:Provider Instructions for Treatment How to Access Health Informa tion Online using Patient Portal and [employer]rd [employer] Apps Indication:Former smoker Start:26-Sep-2022 Instruction Type:Patient Education Patient Instructions Indication:Former smoker Start:13-Jun-2022 Instruction Type:Provider Instructions for Treatment How to Access Health Informa tion Online using Patient Portal and [employer]rd [employer] Apps Indication:Former smoker Start:13-Jun-2022 Instruction Type:Patient Education Patient Instructions Indication:BMI 29.0-29.9,adult Start:06-Jun-2022 Instruction Type:Provider Instructions for Treatment How to Access Health Informa tion Online using Patient Portal and [employer]rd [employer] Apps Indication:BMI 29.0-29.9,adult Start:06-Jun-2022 Instruction Type:Patient Education Patient Instructions Indication:Former smoker Start:13-May-2022 Instruction Type:Provider Instructions for Treatment How to Access Health Informa tion Online using Patient Portal and [employer] Apps Indication:Former smoker Start:13-May-2022 Instruction Type:Patient Education Patient Instructions Indication:BMI 29.0-29.9,adult Start:28-Mar-2022 Instruction Type:Provider Instructions for Treatment How to Access Health Informa tion Online using Patient Portal and [employer]rd [employer] Apps Indication:BMI 29.0-29.9,adult Start:28-Mar-2022 Instruction Type:Patient Education Patient Instructions Indication:Former smoker Start:13-Oct-2021 Instruction Type:Provider Instructions for Treatment How to Access Health Informa tion Online using Patient Portal and [employer] Apps Indication:Former smoker Start:13-Oct-2021 Instruction Type:Patient Education Patient Instructions Indication:Former smoker Start:01-Sep-2021 Instruction Type:Provider Instructions for Treatment How to Access Health Informa tion Online using Patient Portal and [employer] Apps Indication:Former smoker Start:01-Sep-2021 Instruction Type:Patient Education Patient Instructions Indication:BMI 28.0-28.9,adult Start:05-May-2021 Instruction Type:Provider Instructions for Treatment How to Access Health Informa tion Online using Patient Portal and [employer]rd [employer] Apps Indication:BMI 28.0-28.9,adult Start:05-May-2021 Instruction Type:Patient Education Patient Instructions Indication:Former smoker Start:08-Mar-2021 Instruction Type:Provider Instructions for Treatment How to Access Health Informa tion Online using Patient Portal and [employer] Apps Indication:Former smoker Start:08-Mar-2021 Instruction Type:Patient Education Patient Instructions Indication:BMI 29.0-29.9,adult Start:18-Feb-2021 Instruction Type:Provider Instructions for Treatment How to Access Health Informa tion Online using Patient Portal and [employer]rd [employer] Apps Indication:BMI 29.0-29.9,adult Start:18-Feb-2021 Instruction Type:Patient Education Patient Instructions Indication:BMI 28.0-28.9,adult Start:07-Jan-2021 Instruction Type:Provider Instructions for Treatment How to Access Health Informa tion Online using Patient Portal and [employer]rd [employer] Apps Indication:BMI 28.0-28.9,adult Start:07-Jan-2021 Instruction Type:Patient Education Patient Instructions Indication:Former smoker Start:21-Oct-2020 Instruction Type:Provider Instructions for Treatment How to Access Health Informa tion Online using Patient Portal and [employer] Apps Indication:Former smoker Start:21-Oct-2020 Instruction Type:Patient Education Patient Instructions Indication:BMI 28.0-28.9,adult Start:30-Sep-2020 Instruction Type:Provider Instructions for Treatment How to Access Health Informa tion Online using Patient Portal and [employer]rd [employer] Apps Indication:BMI 28.0-28.9,adult Start:30-Sep-2020 Instruction Type:Patient Education Patient Instructions Indication:Former smoker Start:23-Sep-2020 Instruction Type:Provider Instructions for Treatment How to Access Health Informa tion Online using Patient Portal and [employer]rd [employer] Apps Indication:Hyperglycemia Start:23-Sep-2020 Instruction Type:Patient Education How to Access Health Informa tion Online using Patient Portal and [employer]rd [employer] Apps Indication:Former smoker Start:05-Aug-2020 Instruction Type:Patient Education Patient Instructions Indication:Former smoker Start:05-Aug-2020 Instruction Type:Provider Instructions for Treatment How to Access Health Informa tion Online using Patient Portal and [employer]rd [employer] Apps Indication:Former smoker Start:29-Jun-2020 Instruction Type:Patient Education Patient Instructions Indication:Former smoker Start:29-Jun-2020 Instruction Type:Provider Instructions for Treatment How to Access Health Informa tion Online using Patient Portal and [employer] Apps Indication:Former smoker Start:24-Jun-2020 Instruction Type:Patient Education Patient Instructions Indication:Former smoker Start:24-Jun-2020 Instruction Type:Provider Instructions for Treatment Patient Instructions Indication:Former smoker Start:25-Mar-2020 Instruction Type:Provider Instructions for Treatment How to Access Health Informa tion Online using Patient Portal and [employer]rd [employer] Apps Indication:Former smoker Start:25-Mar-2020 Instruction Type:Patient Education How to Access Health Informa tion Online using Patient Portal and [employer]rd [employer] Apps Indication:Former smoker Start:27-Feb-2020 Instruction Type:Patient Education Patient Instructions Indication:Former smoker Start:27-Feb-2020 Instruction Type:Provider Instructions for Treatment How to access health informa tion online Indication:Former smoker Start:18-Feb-2020 Instruction Type:Patient Education How to access health informa tion online - Detail Indication:Former smoker Start:18-Feb-2020 Instruction Type:Patient Education Patient Instructions Indication:Former smoker Start:18-Feb-2020 Instruction Type:Provider Instructions for Treatment How to access health informa tion online Indication:Former smoker Start:11-Feb-2020 Instruction Type:Patient Education How to access health informa tion online - Detail Indication:Former smoker Start:11-Feb-2020 Instruction Type:Patient Education Patient Instructions Indication:Vitamin B12 deficiency Start:11-Feb-2020 Instruction Type:Provider Instructions for Treatment How to access health informa tion online Indication:Former smoker Start:28-Jan-2020 Instruction Type:Patient Education How to access health informa tion online - Detail Indication:Former smoker Start:28-Jan-2020 Instruction Type:Patient Education Patient Instructions Indication:Former smoker Start:28-Jan-2020 Instruction Type:Provider Instructions for Treatment How to access health informa tion online Indication:BMI 29.0-29.9,adult Start:24-Jan-2020 Instruction Type:Patient Education How to access health informa tion online - Detail Indication:BMI 29.0-29.9,adult Start:24-Jan-2020 Instruction Type:Patient Education Patient Instructions Indication:BMI 29.0-29.9,adult Start:24-Jan-2020 Instruction Type:Provider Instructions for Treatment How to access health informa tion online Indication:BMI 29.0-29.9,adult Start:09-Dec-2019 Instruction Type:Patient Education How to access health informa tion online - Detail Indication:BMI 29.0-29.9,adult Start:09-Dec-2019 Instruction Type:Patient Education Patient Instructions Indication:BMI 29.0-29.9,adult Start:09-Dec-2019 Instruction Type:Provider Instructions for Treatment How to access health informa tion online Indication:Former smoker Start:04-Dec-2019 Instruction Type:Patient Education How to access health informa tion online - Detail Indication:Former smoker Start:04-Dec-2019 Instruction Type:Patient Education Patient Instructions Indication:BMI 29.0-29.9,adult Start:04-Dec-2019 Instruction Type:Provider Instructions for Treatment How to access health informa tion online Indication:Former smoker Start:14-Oct-2019 Instruction Type:Patient Education How to access health informa tion online - Detail Indication:Former smoker Start:14-Oct-2019 Instruction Type:Patient Education Patient Instructions Indication:Former smoker Start:14-Oct-2019 Instruction Type:Provider Instructions for Treatment How to access health informa tion online Indication:Former smoker Start:11-Oct-2019 Instruction Type:Patient Education How to access health informa tion online - Detail Indication:Former smoker Start:11-Oct-2019 Instruction Type:Patient Education Patient Instructions Indication:Former smoker Start:11-Oct-2019 Instruction Type:Provider Instructions for Treatment How to access health informa tion online Indication:BMI 29.0-29.9,adult Start:13-Sep-2019 Instruction Type:Patient Education How to access health informa tion online - Detail Indication:BMI 29.0-29.9,adult Start:13-Sep-2019 Instruction Type:Patient Education Patient Instructions Indication:BMI 29.0-29.9,adult Start:13-Sep-2019 Instruction Type:Provider Instructions for Treatment How to access health informa tion online Indication:Former smoker Start:27-Aug-2019 Instruction Type:Patient Education How to access health informa tion online - Detail Indication:Former smoker Start:27-Aug-2019 Instruction Type:Patient Education Patient Instructions Indication:BMI 29.0-29.9,adult Start:27-Aug-2019 Instruction Type:Provider Instructions for Treatment How to access health informa tion online Indication:Former smoker Start:06-Aug-2019 Instruction Type:Patient Education How to access health informa tion online - Detail Indication:Former smoker Start:06-Aug-2019 Instruction Type:Patient Education Patient Instructions Indication:BMI 29.0-29.9,adult Start:06-Aug-2019 Instruction Type:Provider Instructions for Treatment How to access health informa tion online Indication:BMI 30.0-30.9,adult Start:02-Aug-2019 Instruction Type:Patient Education How to access health informa tion online - Detail Indication:BMI 30.0-30.9,adult Start:02-Aug-2019 Instruction Type:Patient Education Patient Instructions Indication:BMI 30.0-30.9,adult Start:02-Aug-2019 Instruction Type:Provider Instructions for Treatment How to access health informa tion online Indication:BMI 30.0-30.9,adult Start:06-Apr-2018 Instruction Type:Patient Education How to access health informa tion online - Detail Indication:BMI 30.0-30.9,adult Start:06-Apr-2018 Instruction Type:Patient Education Patient Instructions Indication:BMI 30.0-30.9,adult Start:06-Apr-2018 Instruction Type:Provider Instructions for Treatment How to access health informa tion online Indication:Former smoker Start:08-Dec-2017 Instruction Type:Patient Education How to access health informa tion online - Detail Indication:Former smoker Start:08-Dec-2017 Instruction Type:Patient Education Patient Instructions Indication:Former smoker Start:08-Dec-2017 Instruction Type:Provider Instructions for Treatment How to access health informa tion online Indication:Hypertension Start:28-Aug-2017 Instruction Type:Patient Education How to access health informa tion online - Detail Indication:Hypertension Start:28-Aug-2017 Instruction Type:Patient Education Patient Instructions Indication:Hypertension Start:28-Aug-2017 Instruction Type:Provider Instructions for Treatment How to access health informa tion online Indication:Hypertension Start:26-Jun-2017 Instruction Type:Patient Education How to access health informa tion online - Detail Indication:Hypertension Start:26-Jun-2017 Instruction Type:Patient Education Patient Instructions Indication:Hypertension Start:26-Jun-2017 Instruction Type:Provider Instructions for Treatment [facility]; [facility] Work Phone: Instructions* Name Dates Details Patient Instructions Indication:Former smoker Start:14-Oct-2022 Instruction Type:Provider Instructions for Treatment How to Access Health Informa tion Online using Patient Portal and [employer]rd [employer] Apps Indication:Former smoker Start:14-Oct-2022 Instruction Type:Patient Education Patient Instructions Indication:Former smoker Start:26-Sep-2022 Instruction Type:Provider Instructions for Treatment How to Access Health Informa tion Online using Patient Portal and [employer]rd [employer] Apps Indication:Former smoker Start:26-Sep-2022 Instruction Type:Patient Education Patient Instructions Indication:Former smoker Start:13-Jun-2022 Instruction Type:Provider Instructions for Treatment How to Access Health Informa tion Online using Patient Portal and [employer]rd [employer] Apps Indication:Former smoker Start:13-Jun-2022 Instruction Type:Patient Education Patient Instructions Indication:BMI 29.0-29.9,adult Start:06-Jun-2022 Instruction Type:Provider Instructions for Treatment How to Access Health Informa tion Online using Patient Portal and [employer]rd [employer] Apps Indication:BMI 29.0-29.9,adult Start:06-Jun-2022 Instruction Type:Patient Education Patient Instructions Indication:Former smoker Start:13-May-2022 Instruction Type:Provider Instructions for Treatment How to Access Health Informa tion Online using Patient Portal and [employer]rd [employer] Apps Indication:Former smoker Start:13-May-2022 Instruction Type:Patient Education Patient Instructions Indication:BMI 29.0-29.9,adult Start:28-Mar-2022 Instruction Type:Provider Instructions for Treatment How to Access Health Informa tion Online using Patient Portal and [employer]rd [employer] Apps Indication:BMI 29.0-29.9,adult Start:28-Mar-2022 Instruction Type:Patient Education Patient Instructions Indication:Former smoker Start:13-Oct-2021 Instruction Type:Provider Instructions for Treatment How to Access Health Informa tion Online using Patient Portal and [employer]rd [employer] Apps Indication:Former smoker Start:13-Oct-2021 Instruction Type:Patient Education Patient Instructions Indication:Former smoker Start:01-Sep-2021 Instruction Type:Provider Instructions for Treatment How to Access Health Informa tion Online using Patient Portal and [employer]rd [employer] Apps Indication:Former smoker Start:01-Sep-2021 Instruction Type:Patient Education Patient Instructions Indication:BMI 28.0-28.9,adult Start:05-May-2021 Instruction Type:Provider Instructions for Treatment How to Access Health Informa tion Online using Patient Portal and [employer]rd [employer] Apps Indication:BMI 28.0-28.9,adult Start:05-May-2021 Instruction Type:Patient Education Patient Instructions Indication:Former smoker Start:08-Mar-2021 Instruction Type:Provider Instructions for Treatment How to Access Health Informa tion Online using Patient Portal and [employer] Apps Indication:Former smoker Start:08-Mar-2021 Instruction Type:Patient Education Patient Instructions Indication:BMI 29.0-29.9,adult Start:18-Feb-2021 Instruction Type:Provider Instructions for Treatment How to Access Health Informa tion Online using Patient Portal and [employer]rd [employer] Apps Indication:BMI 29.0-29.9,adult Start:18-Feb-2021 Instruction Type:Patient Education Patient Instructions Indication:BMI 28.0-28.9,adult Start:07-Jan-2021 Instruction Type:Provider Instructions for Treatment How to Access Health Informa tion Online using Patient Portal and [employer]rd [employer] Apps Indication:BMI 28.0-28.9,adult Start:07-Jan-2021 Instruction Type:Patient Education Patient Instructions Indication:Former smoker Start:21-Oct-2020 Instruction Type:Provider Instructions for Treatment How to Access Health Informa tion Online using Patient Portal and [employer] Apps Indication:Former smoker Start:21-Oct-2020 Instruction Type:Patient Education Patient Instructions Indication:BMI 28.0-28.9,adult Start:30-Sep-2020 Instruction Type:Provider Instructions for Treatment How to Access Health Informa tion Online using Patient Portal and [employer] Apps Indication:BMI 28.0-28.9,adult Start:30-Sep-2020 Instruction Type:Patient Education Patient Instructions Indication:Former smoker Start:23-Sep-2020 Instruction Type:Provider Instructions for Treatment How to Access Health Informa tion Online using Patient Portal and [employer] Apps Indication:Hyperglycemia Start:23-Sep-2020 Instruction Type:Patient Education How to Access Health Informa tion Online using Patient Portal and [employer] Apps Indication:Former smoker Start:05-Aug-2020 Instruction Type:Patient Education Patient Instructions Indication:Former smoker Start:05-Aug-2020 Instruction Type:Provider Instructions for Treatment How to Access Health Informa tion Online using Patient Portal and [employer] Apps Indication:Former smoker Start:29-Jun-2020 Instruction Type:Patient Education Patient Instructions Indication:Former smoker Start:29-Jun-2020 Instruction Type:Provider Instructions for Treatment How to Access Health Informa tion Online using Patient Portal and [employer] Apps Indication:Former smoker Start:24-Jun-2020 Instruction Type:Patient Education Patient Instructions Indication:Former smoker Start:24-Jun-2020 Instruction Type:Provider Instructions for Treatment Patient Instructions Indication:Former smoker Start:25-Mar-2020 Instruction Type:Provider Instructions for Treatment How to Access Health Informa tion Online using Patient Portal and [employer] Apps Indication:Former smoker Start:25-Mar-2020 Instruction Type:Patient Education How to Access Health Informa tion Online using Patient Portal and [employer] Apps Indication:Former smoker Start:27-Feb-2020 Instruction Type:Patient Education Patient Instructions Indication:Former smoker Start:27-Feb-2020 Instruction Type:Provider Instructions for Treatment How to access health informa tion online Indication:Former smoker Start:18-Feb-2020 Instruction Type:Patient Education How to access health informa tion online - Detail Indication:Former smoker Start:18-Feb-2020 Instruction Type:Patient Education Patient Instructions Indication:Former smoker Start:18-Feb-2020 Instruction Type:Provider Instructions for Treatment How to access health informa tion online Indication:Former smoker Start:11-Feb-2020 Instruction Type:Patient Education How to access health informa tion online - Detail Indication:Former smoker Start:11-Feb-2020 Instruction Type:Patient Education Patient Instructions Indication:Vitamin B12 deficiency Start:11-Feb-2020 Instruction Type:Provider Instructions for Treatment How to access health informa tion online Indication:Former smoker Start:28-Jan-2020 Instruction Type:Patient Education How to access health informa tion online - Detail Indication:Former smoker Start:28-Jan-2020 Instruction Type:Patient Education Patient Instructions Indication:Former smoker Start:28-Jan-2020 Instruction Type:Provider Instructions for Treatment How to access health informa tion online Indication:BMI 29.0-29.9,adult Start:24-Jan-2020 Instruction Type:Patient Education How to access health informa tion online - Detail Indication:BMI 29.0-29.9,adult Start:24-Jan-2020 Instruction Type:Patient Education Patient Instructions Indication:BMI 29.0-29.9,adult Start:24-Jan-2020 Instruction Type:Provider Instructions for Treatment How to access health informa tion online Indication:BMI 29.0-29.9,adult Start:09-Dec-2019 Instruction Type:Patient Education How to access health informa tion online - Detail Indication:BMI 29.0-29.9,adult Start:09-Dec-2019 Instruction Type:Patient Education Patient Instructions Indication:BMI 29.0-29.9,adult Start:09-Dec-2019 Instruction Type:Provider Instructions for Treatment How to access health informa tion online Indication:Former smoker Start:04-Dec-2019 Instruction Type:Patient Education How to access health informa tion online - Detail Indication:Former smoker Start:04-Dec-2019 Instruction Type:Patient Education Patient Instructions Indication:BMI 29.0-29.9,adult Start:04-Dec-2019 Instruction Type:Provider Instructions for Treatment How to access health informa tion online Indication:Former smoker Start:14-Oct-2019 Instruction Type:Patient Education How to access health informa tion online - Detail Indication:Former smoker Start:14-Oct-2019 Instruction Type:Patient Education Patient Instructions Indication:Former smoker Start:14-Oct-2019 Instruction Type:Provider Instructions for Treatment How to access health informa tion online Indication:Former smoker Start:11-Oct-2019 Instruction Type:Patient Education How to access health informa tion online - Detail Indication:Former smoker Start:11-Oct-2019 Instruction Type:Patient Education Patient Instructions Indication:Former smoker Start:11-Oct-2019 Instruction Type:Provider Instructions for Treatment How to access health informa tion online Indication:BMI 29.0-29.9,adult Start:13-Sep-2019 Instruction Type:Patient Education How to access health informa tion online - Detail Indication:BMI 29.0-29.9,adult Start:13-Sep-2019 Instruction Type:Patient Education Patient Instructions Indication:BMI 29.0-29.9,adult Start:13-Sep-2019 Instruction Type:Provider Instructions for Treatment How to access health informa tion online Indication:Former smoker Start:27-Aug-2019 Instruction Type:Patient Education How to access health informa tion online - Detail Indication:Former smoker Start:27-Aug-2019 Instruction Type:Patient Education Patient Instructions Indication:BMI 29.0-29.9,adult Start:27-Aug-2019 Instruction Type:Provider Instructions for Treatment How to access health informa tion online Indication:Former smoker Start:06-Aug-2019 Instruction Type:Patient Education How to access health informa tion online - Detail Indication:Former smoker Start:06-Aug-2019 Instruction Type:Patient Education Patient Instructions Indication:BMI 29.0-29.9,adult Start:06-Aug-2019 Instruction Type:Provider Instructions for Treatment How to access health informa tion online Indication:BMI 30.0-30.9,adult Start:02-Aug-2019 Instruction Type:Patient Education How to access health informa tion online - Detail Indication:BMI 30.0-30.9,adult Start:02-Aug-2019 Instruction Type:Patient Education Patient Instructions Indication:BMI 30.0-30.9,adult Start:02-Aug-2019 Instruction Type:Provider Instructions for Treatment How to access health informa tion online Indication:BMI 30.0-30.9,adult Start:06-Apr-2018 Instruction Type:Patient Education How to access health informa tion online - Detail Indication:BMI 30.0-30.9,adult Start:06-Apr-2018 Instruction Type:Patient Education Patient Instructions Indication:BMI 30.0-30.9,adult Start:06-Apr-2018 Instruction Type:Provider Instructions for Treatment How to access health informa tion online Indication:Former smoker Start:08-Dec-2017 Instruction Type:Patient Education How to access health informa tion online - Detail Indication:Former smoker Start:08-Dec-2017 Instruction Type:Patient Education Patient Instructions Indication:Former smoker Start:08-Dec-2017 Instruction Type:Provider Instructions for Treatment How to access health informa tion online Indication:Hypertension Start:28-Aug-2017 Instruction Type:Patient Education How to access health informa tion online - Detail Indication:Hypertension Start:28-Aug-2017 Instruction Type:Patient Education Patient Instructions Indication:Hypertension Start:28-Aug-2017 Instruction Type:Provider Instructions for Treatment How to access health informa tion online Indication:Hypertension Start:26-Jun-2017 Instruction Type:Patient Education How to access health informa tion online - Detail Indication:Hypertension Start:26-Jun-2017 Instruction Type:Patient Education Patient Instructions Indication:Hypertension Start:26-Jun-2017 Instruction Type:Provider Instructions for Treatment [facility]; [facility] Work Phone: Instructions* Name Dates Details Patient Instructions Indication:Former smoker Start:14-Oct-2022 Instruction Type:Provider Instructions for Treatment How to Access Health Informa tion Online using Patient Portal and [employer]rd [employer] Apps Indication:Former smoker Start:14-Oct-2022 Instruction Type:Patient Education Patient Instructions Indication:Former smoker Start:26-Sep-2022 Instruction Type:Provider Instructions for Treatment How to Access Health Informa tion Online using Patient Portal and [employer]rd [employer] Apps Indication:Former smoker Start:26-Sep-2022 Instruction Type:Patient Education Patient Instructions Indication:Former smoker Start:13-Jun-2022 Instruction Type:Provider Instructions for Treatment How to Access Health Informa tion Online using Patient Portal and [employer]rd [employer] Apps Indication:Former smoker Start:13-Jun-2022 Instruction Type:Patient Education Patient Instructions Indication:BMI 29.0-29.9,adult Start:06-Jun-2022 Instruction Type:Provider Instructions for Treatment How to Access Health Informa tion Online using Patient Portal and [employer]rd [employer] Apps Indication:BMI 29.0-29.9,adult Start:06-Jun-2022 Instruction Type:Patient Education Patient Instructions Indication:Former smoker Start:13-May-2022 Instruction Type:Provider Instructions for Treatment How to Access Health Informa tion Online using Patient Portal and [employer] Apps Indication:Former smoker Start:13-May-2022 Instruction Type:Patient Education Patient Instructions Indication:BMI 29.0-29.9,adult Start:28-Mar-2022 Instruction Type:Provider Instructions for Treatment How to Access Health Informa tion Online using Patient Portal and [employer]rd [employer] Apps Indication:BMI 29.0-29.9,adult Start:28-Mar-2022 Instruction Type:Patient Education Patient Instructions Indication:Former smoker Start:13-Oct-2021 Instruction Type:Provider Instructions for Treatment How to Access Health Informa tion Online using Patient Portal and [employer]rd [employer] Apps Indication:Former smoker Start:13-Oct-2021 Instruction Type:Patient Education Patient Instructions Indication:Former smoker Start:01-Sep-2021 Instruction Type:Provider Instructions for Treatment How to Access Health Informa tion Online using Patient Portal and [employer]rd [employer] Apps Indication:Former smoker Start:01-Sep-2021 Instruction Type:Patient Education Patient Instructions Indication:BMI 28.0-28.9,adult Start:05-May-2021 Instruction Type:Provider Instructions for Treatment How to Access Health Informa tion Online using Patient Portal and [employer]rd [employer] Apps Indication:BMI 28.0-28.9,adult Start:05-May-2021 Instruction Type:Patient Education Patient Instructions Indication:Former smoker Start:08-Mar-2021 Instruction Type:Provider Instructions for Treatment How to Access Health Informa tion Online using Patient Portal and [employer]rd [employer] Apps Indication:Former smoker Start:08-Mar-2021 Instruction Type:Patient Education Patient Instructions Indication:BMI 29.0-29.9,adult Start:18-Feb-2021 Instruction Type:Provider Instructions for Treatment How to Access Health Informa tion Online using Patient Portal and [employer]rd [employer] Apps Indication:BMI 29.0-29.9,adult Start:18-Feb-2021 Instruction Type:Patient Education Patient Instructions Indication:BMI 28.0-28.9,adult Start:07-Jan-2021 Instruction Type:Provider Instructions for Treatment How to Access Health Informa tion Online using Patient Portal and [employer]rd [employer] Apps Indication:BMI 28.0-28.9,adult Start:07-Jan-2021 Instruction Type:Patient Education Patient Instructions Indication:Former smoker Start:21-Oct-2020 Instruction Type:Provider Instructions for Treatment How to Access Health Informa tion Online using Patient Portal and [employer]rd [employer] Apps Indication:Former smoker Start:21-Oct-2020 Instruction Type:Patient Education Patient Instructions Indication:BMI 28.0-28.9,adult Start:30-Sep-2020 Instruction Type:Provider Instructions for Treatment How to Access Health Informa tion Online using Patient Portal and [employer]rd [employer] Apps Indication:BMI 28.0-28.9,adult Start:30-Sep-2020 Instruction Type:Patient Education Patient Instructions Indication:Former smoker Start:23-Sep-2020 Instruction Type:Provider Instructions for Treatment How to Access Health Informa tion Online using Patient Portal and [employer]rd [employer] Apps Indication:Hyperglycemia Start:23-Sep-2020 Instruction Type:Patient Education How to Access Health Informa tion Online using Patient Portal and [employer]rd [employer] Apps Indication:Former smoker Start:05-Aug-2020 Instruction Type:Patient Education Patient Instructions Indication:Former smoker Start:05-Aug-2020 Instruction Type:Provider Instructions for Treatment How to Access Health Informa tion Online using Patient Portal and [employer] Apps Indication:Former smoker Start:29-Jun-2020 Instruction Type:Patient Education Patient Instructions Indication:Former smoker Start:29-Jun-2020 Instruction Type:Provider Instructions for Treatment How to Access Health Informa tion Online using Patient Portal and [employer]rd [employer] Apps Indication:Former smoker Start:24-Jun-2020 Instruction Type:Patient Education Patient Instructions Indication:Former smoker Start:24-Jun-2020 Instruction Type:Provider Instructions for Treatment Patient Instructions Indication:Former smoker Start:25-Mar-2020 Instruction Type:Provider Instructions for Treatment How to Access Health Informa tion Online using Patient Portal and [employer] Apps Indication:Former smoker Start:25-Mar-2020 Instruction Type:Patient Education How to Access Health Informa tion Online using Patient Portal and [employer] Apps Indication:Former smoker Start:27-Feb-2020 Instruction Type:Patient Education Patient Instructions Indication:Former smoker Start:27-Feb-2020 Instruction Type:Provider Instructions for Treatment How to access health informa tion online Indication:Former smoker Start:18-Feb-2020 Instruction Type:Patient Education How to access health informa tion online - Detail Indication:Former smoker Start:18-Feb-2020 Instruction Type:Patient Education Patient Instructions Indication:Former smoker Start:18-Feb-2020 Instruction Type:Provider Instructions for Treatment How to access health informa tion online Indication:Former smoker Start:11-Feb-2020 Instruction Type:Patient Education How to access health informa tion online - Detail Indication:Former smoker Start:11-Feb-2020 Instruction Type:Patient Education Patient Instructions Indication:Vitamin B12 deficiency Start:11-Feb-2020 Instruction Type:Provider Instructions for Treatment How to access health informa tion online Indication:Former smoker Start:28-Jan-2020 Instruction Type:Patient Education How to access health informa tion online - Detail Indication:Former smoker Start:28-Jan-2020 Instruction Type:Patient Education Patient Instructions Indication:Former smoker Start:28-Jan-2020 Instruction Type:Provider Instructions for Treatment How to access health informa tion online Indication:BMI 29.0-29.9,adult Start:24-Jan-2020 Instruction Type:Patient Education How to access health informa tion online - Detail Indication:BMI 29.0-29.9,adult Start:24-Jan-2020 Instruction Type:Patient Education Patient Instructions Indication:BMI 29.0-29.9,adult Start:24-Jan-2020 Instruction Type:Provider Instructions for Treatment How to access health informa tion online Indication:BMI 29.0-29.9,adult Start:09-Dec-2019 Instruction Type:Patient Education How to access health informa tion online - Detail Indication:BMI 29.0-29.9,adult Start:09-Dec-2019 Instruction Type:Patient Education Patient Instructions Indication:BMI 29.0-29.9,adult Start:09-Dec-2019 Instruction Type:Provider Instructions for Treatment How to access health informa tion online Indication:Former smoker Start:04-Dec-2019 Instruction Type:Patient Education How to access health informa tion online - Detail Indication:Former smoker Start:04-Dec-2019 Instruction Type:Patient Education Patient Instructions Indication:BMI 29.0-29.9,adult Start:04-Dec-2019 Instruction Type:Provider Instructions for Treatment How to access health informa tion online Indication:Former smoker Start:14-Oct-2019 Instruction Type:Patient Education How to access health informa tion online - Detail Indication:Former smoker Start:14-Oct-2019 Instruction Type:Patient Education Patient Instructions Indication:Former smoker Start:14-Oct-2019 Instruction Type:Provider Instructions for Treatment How to access health informa tion online Indication:Former smoker Start:11-Oct-2019 Instruction Type:Patient Education How to access health informa tion online - Detail Indication:Former smoker Start:11-Oct-2019 Instruction Type:Patient Education Patient Instructions Indication:Former smoker Start:11-Oct-2019 Instruction Type:Provider Instructions for Treatment How to access health informa tion online Indication:BMI 29.0-29.9,adult Start:13-Sep-2019 Instruction Type:Patient Education How to access health informa tion online - Detail Indication:BMI 29.0-29.9,adult Start:13-Sep-2019 Instruction Type:Patient Education Patient Instructions Indication:BMI 29.0-29.9,adult Start:13-Sep-2019 Instruction Type:Provider Instructions for Treatment How to access health informa tion online Indication:Former smoker Start:27-Aug-2019 Instruction Type:Patient Education How to access health informa tion online - Detail Indication:Former smoker Start:27-Aug-2019 Instruction Type:Patient Education Patient Instructions Indication:BMI 29.0-29.9,adult Start:27-Aug-2019 Instruction Type:Provider Instructions for Treatment How to access health informa tion online Indication:Former smoker Start:06-Aug-2019 Instruction Type:Patient Education How to access health informa tion online - Detail Indication:Former smoker Start:06-Aug-2019 Instruction Type:Patient Education Patient Instructions Indication:BMI 29.0-29.9,adult Start:06-Aug-2019 Instruction Type:Provider Instructions for Treatment How to access health informa tion online Indication:BMI 30.0-30.9,adult Start:02-Aug-2019 Instruction Type:Patient Education How to access health informa tion online - Detail Indication:BMI 30.0-30.9,adult Start:02-Aug-2019 Instruction Type:Patient Education Patient Instructions Indication:BMI 30.0-30.9,adult Start:02-Aug-2019 Instruction Type:Provider Instructions for Treatment How to access health informa tion online Indication:BMI 30.0-30.9,adult Start:06-Apr-2018 Instruction Type:Patient Education How to access health informa tion online - Detail Indication:BMI 30.0-30.9,adult Start:06-Apr-2018 Instruction Type:Patient Education Patient Instructions Indication:BMI 30.0-30.9,adult Start:06-Apr-2018 Instruction Type:Provider Instructions for Treatment How to access health informa tion online Indication:Former smoker Start:08-Dec-2017 Instruction Type:Patient Education How to access health informa tion online - Detail Indication:Former smoker Start:08-Dec-2017 Instruction Type:Patient Education Patient Instructions Indication:Former smoker Start:08-Dec-2017 Instruction Type:Provider Instructions for Treatment How to access health informa tion online Indication:Hypertension Start:28-Aug-2017 Instruction Type:Patient Education How to access health informa tion online - Detail Indication:Hypertension Start:28-Aug-2017 Instruction Type:Patient Education Patient Instructions Indication:Hypertension Start:28-Aug-2017 Instruction Type:Provider Instructions for Treatment How to access health informa tion online Indication:Hypertension Start:26-Jun-2017 Instruction Type:Patient Education How to access health informa tion online - Detail Indication:Hypertension Start:26-Jun-2017 Instruction Type:Patient Education Patient Instructions Indication:Hypertension Start:26-Jun-2017 Instruction Type:Provider Instructions for Treatment [facility]; [facility] Work Phone: Instructions* Name Dates Details Patient Instructions Indication:Former smoker Start:14-Oct-2022 Instruction Type:Provider Instructions for Treatment How to Access Health Informa tion Online using Patient Portal and [employer]rd [employer] Apps Indication:Former smoker Start:14-Oct-2022 Instruction Type:Patient Education Patient Instructions Indication:Former smoker Start:26-Sep-2022 Instruction Type:Provider Instructions for Treatment How to Access Health Informa tion Online using Patient Portal and [employer]rd [employer] Apps Indication:Former smoker Start:26-Sep-2022 Instruction Type:Patient Education Patient Instructions Indication:Former smoker Start:13-Jun-2022 Instruction Type:Provider Instructions for Treatment How to Access Health Informa tion Online using Patient Portal and [employer]rd [employer] Apps Indication:Former smoker Start:13-Jun-2022 Instruction Type:Patient Education Patient Instructions Indication:BMI 29.0-29.9,adult Start:06-Jun-2022 Instruction Type:Provider Instructions for Treatment How to Access Health Informa tion Online using Patient Portal and [employer]rd [employer] Apps Indication:BMI 29.0-29.9,adult Start:06-Jun-2022 Instruction Type:Patient Education Patient Instructions Indication:Former smoker Start:13-May-2022 Instruction Type:Provider Instructions for Treatment How to Access Health Informa tion Online using Patient Portal and [employer]rd [employer] Apps Indication:Former smoker Start:13-May-2022 Instruction Type:Patient Education Patient Instructions Indication:BMI 29.0-29.9,adult Start:28-Mar-2022 Instruction Type:Provider Instructions for Treatment How to Access Health Informa tion Online using Patient Portal and [employer]rd [employer] Apps Indication:BMI 29.0-29.9,adult Start:28-Mar-2022 Instruction Type:Patient Education Patient Instructions Indication:Former smoker Start:13-Oct-2021 Instruction Type:Provider Instructions for Treatment How to Access Health Informa tion Online using Patient Portal and [employer]rd [employer] Apps Indication:Former smoker Start:13-Oct-2021 Instruction Type:Patient Education Patient Instructions Indication:Former smoker Start:01-Sep-2021 Instruction Type:Provider Instructions for Treatment How to Access Health Informa tion Online using Patient Portal and [employer]rd [employer] Apps Indication:Former smoker Start:01-Sep-2021 Instruction Type:Patient Education Patient Instructions Indication:BMI 28.0-28.9,adult Start:05-May-2021 Instruction Type:Provider Instructions for Treatment How to Access Health Informa tion Online using Patient Portal and [employer]rd [employer] Apps Indication:BMI 28.0-28.9,adult Start:05-May-2021 Instruction Type:Patient Education Patient Instructions Indication:Former smoker Start:08-Mar-2021 Instruction Type:Provider Instructions for Treatment How to Access Health Informa tion Online using Patient Portal and [employer] Apps Indication:Former smoker Start:08-Mar-2021 Instruction Type:Patient Education Patient Instructions Indication:BMI 29.0-29.9,adult Start:18-Feb-2021 Instruction Type:Provider Instructions for Treatment How to Access Health Informa tion Online using Patient Portal and [employer]rd [employer] Apps Indication:BMI 29.0-29.9,adult Start:18-Feb-2021 Instruction Type:Patient Education Patient Instructions Indication:BMI 28.0-28.9,adult Start:07-Jan-2021 Instruction Type:Provider Instructions for Treatment How to Access Health Informa tion Online using Patient Portal and [employer]rd [employer] Apps Indication:BMI 28.0-28.9,adult Start:07-Jan-2021 Instruction Type:Patient Education Patient Instructions Indication:Former smoker Start:21-Oct-2020 Instruction Type:Provider Instructions for Treatment How to Access Health Informa tion Online using Patient Portal and [employer] Apps Indication:Former smoker Start:21-Oct-2020 Instruction Type:Patient Education Patient Instructions Indication:BMI 28.0-28.9,adult Start:30-Sep-2020 Instruction Type:Provider Instructions for Treatment How to Access Health Informa tion Online using Patient Portal and [employer] Apps Indication:BMI 28.0-28.9,adult Start:30-Sep-2020 Instruction Type:Patient Education Patient Instructions Indication:Former smoker Start:23-Sep-2020 Instruction Type:Provider Instructions for Treatment How to Access Health Informa tion Online using Patient Portal and [employer] Apps Indication:Hyperglycemia Start:23-Sep-2020 Instruction Type:Patient Education How to Access Health Informa tion Online using Patient Portal and [employer] Apps Indication:Former smoker Start:05-Aug-2020 Instruction Type:Patient Education Patient Instructions Indication:Former smoker Start:05-Aug-2020 Instruction Type:Provider Instructions for Treatment How to Access Health Informa tion Online using Patient Portal and [employer] Apps Indication:Former smoker Start:29-Jun-2020 Instruction Type:Patient Education Patient Instructions Indication:Former smoker Start:29-Jun-2020 Instruction Type:Provider Instructions for Treatment How to Access Health Informa tion Online using Patient Portal and [employer] Apps Indication:Former smoker Start:24-Jun-2020 Instruction Type:Patient Education Patient Instructions Indication:Former smoker Start:24-Jun-2020 Instruction Type:Provider Instructions for Treatment Patient Instructions Indication:Former smoker Start:25-Mar-2020 Instruction Type:Provider Instructions for Treatment How to Access Health Informa tion Online using Patient Portal and [employer] Apps Indication:Former smoker Start:25-Mar-2020 Instruction Type:Patient Education How to Access Health Informa tion Online using Patient Portal and [employer] Apps Indication:Former smoker Start:27-Feb-2020 Instruction Type:Patient Education Patient Instructions Indication:Former smoker Start:27-Feb-2020 Instruction Type:Provider Instructions for Treatment How to access health informa tion online Indication:Former smoker Start:18-Feb-2020 Instruction Type:Patient Education How to access health informa tion online - Detail Indication:Former smoker Start:18-Feb-2020 Instruction Type:Patient Education Patient Instructions Indication:Former smoker Start:18-Feb-2020 Instruction Type:Provider Instructions for Treatment How to access health informa tion online Indication:Former smoker Start:11-Feb-2020 Instruction Type:Patient Education How to access health informa tion online - Detail Indication:Former smoker Start:11-Feb-2020 Instruction Type:Patient Education Patient Instructions Indication:Vitamin B12 deficiency Start:11-Feb-2020 Instruction Type:Provider Instructions for Treatment How to access health informa tion online Indication:Former smoker Start:28-Jan-2020 Instruction Type:Patient Education How to access health informa tion online - Detail Indication:Former smoker Start:28-Jan-2020 Instruction Type:Patient Education Patient Instructions Indication:Former smoker Start:28-Jan-2020 Instruction Type:Provider Instructions for Treatment How to access health informa tion online Indication:BMI 29.0-29.9,adult Start:24-Jan-2020 Instruction Type:Patient Education How to access health informa tion online - Detail Indication:BMI 29.0-29.9,adult Start:24-Jan-2020 Instruction Type:Patient Education Patient Instructions Indication:BMI 29.0-29.9,adult Start:24-Jan-2020 Instruction Type:Provider Instructions for Treatment How to access health informa tion online Indication:BMI 29.0-29.9,adult Start:09-Dec-2019 Instruction Type:Patient Education How to access health informa tion online - Detail Indication:BMI 29.0-29.9,adult Start:09-Dec-2019 Instruction Type:Patient Education Patient Instructions Indication:BMI 29.0-29.9,adult Start:09-Dec-2019 Instruction Type:Provider Instructions for Treatment How to access health informa tion online Indication:Former smoker Start:04-Dec-2019 Instruction Type:Patient Education How to access health informa tion online - Detail Indication:Former smoker Start:04-Dec-2019 Instruction Type:Patient Education Patient Instructions Indication:BMI 29.0-29.9,adult Start:04-Dec-2019 Instruction Type:Provider Instructions for Treatment How to access health informa tion online Indication:Former smoker Start:14-Oct-2019 Instruction Type:Patient Education How to access health informa tion online - Detail Indication:Former smoker Start:14-Oct-2019 Instruction Type:Patient Education Patient Instructions Indication:Former smoker Start:14-Oct-2019 Instruction Type:Provider Instructions for Treatment How to access health informa tion online Indication:Former smoker Start:11-Oct-2019 Instruction Type:Patient Education How to access health informa tion online - Detail Indication:Former smoker Start:11-Oct-2019 Instruction Type:Patient Education Patient Instructions Indication:Former smoker Start:11-Oct-2019 Instruction Type:Provider Instructions for Treatment How to access health informa tion online Indication:BMI 29.0-29.9,adult Start:13-Sep-2019 Instruction Type:Patient Education How to access health informa tion online - Detail Indication:BMI 29.0-29.9,adult Start:13-Sep-2019 Instruction Type:Patient Education Patient Instructions Indication:BMI 29.0-29.9,adult Start:13-Sep-2019 Instruction Type:Provider Instructions for Treatment How to access health informa tion online Indication:Former smoker Start:27-Aug-2019 Instruction Type:Patient Education How to access health informa tion online - Detail Indication:Former smoker Start:27-Aug-2019 Instruction Type:Patient Education Patient Instructions Indication:BMI 29.0-29.9,adult Start:27-Aug-2019 Instruction Type:Provider Instructions for Treatment How to access health informa tion online Indication:Former smoker Start:06-Aug-2019 Instruction Type:Patient Education How to access health informa tion online - Detail Indication:Former smoker Start:06-Aug-2019 Instruction Type:Patient Education Patient Instructions Indication:BMI 29.0-29.9,adult Start:06-Aug-2019 Instruction Type:Provider Instructions for Treatment How to access health informa tion online Indication:BMI 30.0-30.9,adult Start:02-Aug-2019 Instruction Type:Patient Education How to access health informa tion online - Detail Indication:BMI 30.0-30.9,adult Start:02-Aug-2019 Instruction Type:Patient Education Patient Instructions Indication:BMI 30.0-30.9,adult Start:02-Aug-2019 Instruction Type:Provider Instructions for Treatment How to access health informa tion online Indication:BMI 30.0-30.9,adult Start:06-Apr-2018 Instruction Type:Patient Education How to access health informa tion online - Detail Indication:BMI 30.0-30.9,adult Start:06-Apr-2018 Instruction Type:Patient Education Patient Instructions Indication:BMI 30.0-30.9,adult Start:06-Apr-2018 Instruction Type:Provider Instructions for Treatment How to access health informa tion online Indication:Former smoker Start:08-Dec-2017 Instruction Type:Patient Education How to access health informa tion online - Detail Indication:Former smoker Start:08-Dec-2017 Instruction Type:Patient Education Patient Instructions Indication:Former smoker Start:08-Dec-2017 Instruction Type:Provider Instructions for Treatment How to access health informa tion online Indication:Hypertension Start:28-Aug-2017 Instruction Type:Patient Education How to access health informa tion online - Detail Indication:Hypertension Start:28-Aug-2017 Instruction Type:Patient Education Patient Instructions Indication:Hypertension Start:28-Aug-2017 Instruction Type:Provider Instructions for Treatment How to access health informa tion online Indication:Hypertension Start:26-Jun-2017 Instruction Type:Patient Education How to access health informa tion online - Detail Indication:Hypertension Start:26-Jun-2017 Instruction Type:Patient Education Patient Instructions Indication:Hypertension Start:26-Jun-2017 Instruction Type:Provider Instructions for Treatment [facility]; [facility] Work Phone: Instructions* Name Dates Details Patient Instructions Indication:Former smoker Start:24-Nov-2022 Instruction Type:Provider Instructions for Treatment How to Access Health Informa tion Online using Patient Portal and [employer]rd [employer] Apps Indication:Former smoker Start:24-Nov-2022 Instruction Type:Patient Education How to Access Health Informa tion Online using Patient Portal and [employer]rd [employer] Apps Indication:Former smoker Start:24-Nov-2022 Instruction Type:Patient Education Patient Instructions Indication:Former smoker Start:14-Oct-2022 Instruction Type:Provider Instructions for Treatment How to Access Health Informa tion Online using Patient Portal and [employer] Apps Indication:Former smoker Start:14-Oct-2022 Instruction Type:Patient Education Patient Instructions Indication:Former smoker Start:26-Sep-2022 Instruction Type:Provider Instructions for Treatment How to Access Health Informa tion Online using Patient Portal and [employer]rd [employer] Apps Indication:Former smoker Start:26-Sep-2022 Instruction Type:Patient Education Patient Instructions Indication:Former smoker Start:13-Jun-2022 Instruction Type:Provider Instructions for Treatment How to Access Health Informa tion Online using Patient Portal and [employer]rd [employer] Apps Indication:Former smoker Start:13-Jun-2022 Instruction Type:Patient Education Patient Instructions Indication:BMI 29.0-29.9,adult Start:06-Jun-2022 Instruction Type:Provider Instructions for Treatment How to Access Health Informa tion Online using Patient Portal and [employer]rd [employer] Apps Indication:BMI 29.0-29.9,adult Start:06-Jun-2022 Instruction Type:Patient Education Patient Instructions Indication:Former smoker Start:13-May-2022 Instruction Type:Provider Instructions for Treatment How to Access Health Informa tion Online using Patient Portal and [employer]rd [employer] Apps Indication:Former smoker Start:13-May-2022 Instruction Type:Patient Education Patient Instructions Indication:BMI 29.0-29.9,adult Start:28-Mar-2022 Instruction Type:Provider Instructions for Treatment How to Access Health Informa tion Online using Patient Portal and [employer]rd [employer] Apps Indication:BMI 29.0-29.9,adult Start:28-Mar-2022 Instruction Type:Patient Education Patient Instructions Indication:Former smoker Start:13-Oct-2021 Instruction Type:Provider Instructions for Treatment How to Access Health Informa tion Online using Patient Portal and [employer]rd [employer] Apps Indication:Former smoker Start:13-Oct-2021 Instruction Type:Patient Education Patient Instructions Indication:Former smoker Start:01-Sep-2021 Instruction Type:Provider Instructions for Treatment How to Access Health Informa tion Online using Patient Portal and [employer]rd [employer] Apps Indication:Former smoker Start:01-Sep-2021 Instruction Type:Patient Education Patient Instructions Indication:BMI 28.0-28.9,adult Start:05-May-2021 Instruction Type:Provider Instructions for Treatment How to Access Health Informa tion Online using Patient Portal and [employer]rd [employer] Apps Indication:BMI 28.0-28.9,adult Start:05-May-2021 Instruction Type:Patient Education Patient Instructions Indication:Former smoker Start:08-Mar-2021 Instruction Type:Provider Instructions for Treatment How to Access Health Informa tion Online using Patient Portal and [employer]rd [employer] Apps Indication:Former smoker Start:08-Mar-2021 Instruction Type:Patient Education Patient Instructions Indication:BMI 29.0-29.9,adult Start:18-Feb-2021 Instruction Type:Provider Instructions for Treatment How to Access Health Informa tion Online using Patient Portal and [employer]rd [employer] Apps Indication:BMI 29.0-29.9,adult Start:18-Feb-2021 Instruction Type:Patient Education Patient Instructions Indication:BMI 28.0-28.9,adult Start:07-Jan-2021 Instruction Type:Provider Instructions for Treatment How to Access Health Informa tion Online using Patient Portal and [employer]rd [employer] Apps Indication:BMI 28.0-28.9,adult Start:07-Jan-2021 Instruction Type:Patient Education Patient Instructions Indication:Former smoker Start:21-Oct-2020 Instruction Type:Provider Instructions for Treatment How to Access Health Informa tion Online using Patient Portal and [employer]rd [employer] Apps Indication:Former smoker Start:21-Oct-2020 Instruction Type:Patient Education Patient Instructions Indication:BMI 28.0-28.9,adult Start:30-Sep-2020 Instruction Type:Provider Instructions for Treatment How to Access Health Informa tion Online using Patient Portal and [employer]rd [employer] Apps Indication:BMI 28.0-28.9,adult Start:30-Sep-2020 Instruction Type:Patient Education Patient Instructions Indication:Former smoker Start:23-Sep-2020 Instruction Type:Provider Instructions for Treatment How to Access Health Informa tion Online using Patient Portal and [employer]rd [employer] Apps Indication:Hyperglycemia Start:23-Sep-2020 Instruction Type:Patient Education How to Access Health Informa tion Online using Patient Portal and [employer]rd [employer] Apps Indication:Former smoker Start:05-Aug-2020 Instruction Type:Patient Education Patient Instructions Indication:Former smoker Start:05-Aug-2020 Instruction Type:Provider Instructions for Treatment How to Access Health Informa tion Online using Patient Portal and [employer]rd [employer] Apps Indication:Former smoker Start:29-Jun-2020 Instruction Type:Patient Education Patient Instructions Indication:Former smoker Start:29-Jun-2020 Instruction Type:Provider Instructions for Treatment How to Access Health Informa tion Online using Patient Portal and [employer] Apps Indication:Former smoker Start:24-Jun-2020 Instruction Type:Patient Education Patient Instructions Indication:Former smoker Start:24-Jun-2020 Instruction Type:Provider Instructions for Treatment Patient Instructions Indication:Former smoker Start:25-Mar-2020 Instruction Type:Provider Instructions for Treatment How to Access Health Informa tion Online using Patient Portal and [employer] Apps Indication:Former smoker Start:25-Mar-2020 Instruction Type:Patient Education How to Access Health Informa tion Online using Patient Portal and [employer] Apps Indication:Former smoker Start:27-Feb-2020 Instruction Type:Patient Education Patient Instructions Indication:Former smoker Start:27-Feb-2020 Instruction Type:Provider Instructions for Treatment How to access health informa tion online Indication:Former smoker Start:18-Feb-2020 Instruction Type:Patient Education How to access health informa tion online - Detail Indication:Former smoker Start:18-Feb-2020 Instruction Type:Patient Education Patient Instructions Indication:Former smoker Start:18-Feb-2020 Instruction Type:Provider Instructions for Treatment How to access health informa tion online Indication:Former smoker Start:11-Feb-2020 Instruction Type:Patient Education How to access health informa tion online - Detail Indication:Former smoker Start:11-Feb-2020 Instruction Type:Patient Education Patient Instructions Indication:Vitamin B12 deficiency Start:11-Feb-2020 Instruction Type:Provider Instructions for Treatment How to access health informa tion online Indication:Former smoker Start:28-Jan-2020 Instruction Type:Patient Education How to access health informa tion online - Detail Indication:Former smoker Start:28-Jan-2020 Instruction Type:Patient Education Patient Instructions Indication:Former smoker Start:28-Jan-2020 Instruction Type:Provider Instructions for Treatment How to access health informa tion online Indication:BMI 29.0-29.9,adult Start:24-Jan-2020 Instruction Type:Patient Education How to access health informa tion online - Detail Indication:BMI 29.0-29.9,adult Start:24-Jan-2020 Instruction Type:Patient Education Patient Instructions Indication:BMI 29.0-29.9,adult Start:24-Jan-2020 Instruction Type:Provider Instructions for Treatment How to access health informa tion online Indication:BMI 29.0-29.9,adult Start:09-Dec-2019 Instruction Type:Patient Education How to access health informa tion online - Detail Indication:BMI 29.0-29.9,adult Start:09-Dec-2019 Instruction Type:Patient Education Patient Instructions Indication:BMI 29.0-29.9,adult Start:09-Dec-2019 Instruction Type:Provider Instructions for Treatment How to access health informa tion online Indication:Former smoker Start:04-Dec-2019 Instruction Type:Patient Education How to access health informa tion online - Detail Indication:Former smoker Start:04-Dec-2019 Instruction Type:Patient Education Patient Instructions Indication:BMI 29.0-29.9,adult Start:04-Dec-2019 Instruction Type:Provider Instructions for Treatment How to access health informa tion online Indication:Former smoker Start:14-Oct-2019 Instruction Type:Patient Education How to access health informa tion online - Detail Indication:Former smoker Start:14-Oct-2019 Instruction Type:Patient Education Patient Instructions Indication:Former smoker Start:14-Oct-2019 Instruction Type:Provider Instructions for Treatment How to access health informa tion online Indication:Former smoker Start:11-Oct-2019 Instruction Type:Patient Education How to access health informa tion online - Detail Indication:Former smoker Start:11-Oct-2019 Instruction Type:Patient Education Patient Instructions Indication:Former smoker Start:11-Oct-2019 Instruction Type:Provider Instructions for Treatment How to access health informa tion online Indication:BMI 29.0-29.9,adult Start:13-Sep-2019 Instruction Type:Patient Education How to access health informa tion online - Detail Indication:BMI 29.0-29.9,adult Start:13-Sep-2019 Instruction Type:Patient Education Patient Instructions Indication:BMI 29.0-29.9,adult Start:13-Sep-2019 Instruction Type:Provider Instructions for Treatment How to access health informa tion online Indication:Former smoker Start:27-Aug-2019 Instruction Type:Patient Education How to access health informa tion online - Detail Indication:Former smoker Start:27-Aug-2019 Instruction Type:Patient Education Patient Instructions Indication:BMI 29.0-29.9,adult Start:27-Aug-2019 Instruction Type:Provider Instructions for Treatment How to access health informa tion online Indication:Former smoker Start:06-Aug-2019 Instruction Type:Patient Education How to access health informa tion online - Detail Indication:Former smoker Start:06-Aug-2019 Instruction Type:Patient Education Patient Instructions Indication:BMI 29.0-29.9,adult Start:06-Aug-2019 Instruction Type:Provider Instructions for Treatment How to access health informa tion online Indication:BMI 30.0-30.9,adult Start:02-Aug-2019 Instruction Type:Patient Education How to access health informa tion online - Detail Indication:BMI 30.0-30.9,adult Start:02-Aug-2019 Instruction Type:Patient Education Patient Instructions Indication:BMI 30.0-30.9,adult Start:02-Aug-2019 Instruction Type:Provider Instructions for Treatment How to access health informa tion online Indication:BMI 30.0-30.9,adult Start:06-Apr-2018 Instruction Type:Patient Education How to access health informa tion online - Detail Indication:BMI 30.0-30.9,adult Start:06-Apr-2018 Instruction Type:Patient Education Patient Instructions Indication:BMI 30.0-30.9,adult Start:06-Apr-2018 Instruction Type:Provider Instructions for Treatment How to access health informa tion online Indication:Former smoker Start:08-Dec-2017 Instruction Type:Patient Education How to access health informa tion online - Detail Indication:Former smoker Start:08-Dec-2017 Instruction Type:Patient Education Patient Instructions Indication:Former smoker Start:08-Dec-2017 Instruction Type:Provider Instructions for Treatment How to access health informa tion online Indication:Hypertension Start:28-Aug-2017 Instruction Type:Patient Education How to access health informa tion online - Detail Indication:Hypertension Start:28-Aug-2017 Instruction Type:Patient Education Patient Instructions Indication:Hypertension Start:28-Aug-2017 Instruction Type:Provider Instructions for Treatment How to access health informa tion online Indication:Hypertension Start:26-Jun-2017 Instruction Type:Patient Education How to access health informa tion online - Detail Indication:Hypertension Start:26-Jun-2017 Instruction Type:Patient Education Patient Instructions Indication:Hypertension Start:26-Jun-2017 Instruction Type:Provider Instructions for Treatment [facility]; [facility] Work Phone: Instructions* Name Dates Details Patient Instructions Indication:Former smoker Start:24-Nov-2022 Instruction Type:Provider Instructions for Treatment How to Access Health Informa tion Online using Patient Portal and [employer] Indication:Former smoker Start:24-Nov-2022 Instruction Type:Patient Education How to Access Health Informa tion Online using Patient Portal and [employer] Apps Indication:Former smoker Start:24-Nov-2022 Instruction Type:Patient Education Patient Instructions Indication:Former smoker Start:14-Oct-2022 Instruction Type:Provider Instructions for Treatment How to Access Health Informa tion Online using Patient Portal and [employer] Apps Indication:Former smoker Start:14-Oct-2022 Instruction Type:Patient Education Patient Instructions Indication:Former smoker Start:26-Sep-2022 Instruction Type:Provider Instructions for Treatment How to Access Health Informa tion Online using Patient Portal and [employer] Apps Indication:Former smoker Start:26-Sep-2022 Instruction Type:Patient Education Patient Instructions Indication:Former smoker Start:13-Jun-2022 Instruction Type:Provider Instructions for Treatment How to Access Health Informa tion Online using Patient Portal and [employer] Apps Indication:Former smoker Start:13-Jun-2022 Instruction Type:Patient Education Patient Instructions Indication:BMI 29.0-29.9,adult Start:06-Jun-2022 Instruction Type:Provider Instructions for Treatment How to Access Health Informa tion Online using Patient Portal and [employer] Apps Indication:BMI 29.0-29.9,adult Start:06-Jun-2022 Instruction Type:Patient Education Patient Instructions Indication:Former smoker Start:13-May-2022 Instruction Type:Provider Instructions for Treatment How to Access Health Informa tion Online using Patient Portal and [employer] Indication:Former smoker Start:13-May-2022 Instruction Type:Patient Education Patient Instructions Indication:BMI 29.0-29.9,adult Start:28-Mar-2022 Instruction Type:Provider Instructions for Treatment How to Access Health Informa tion Online using Patient Portal and [employer] Apps Indication:BMI 29.0-29.9,adult Start:28-Mar-2022 Instruction Type:Patient Education Patient Instructions Indication:Former smoker Start:13-Oct-2021 Instruction Type:Provider Instructions for Treatment How to Access Health Informa tion Online using Patient Portal and [employer] Apps Indication:Former smoker Start:13-Oct-2021 Instruction Type:Patient Education Patient Instructions Indication:Former smoker Start:01-Sep-2021 Instruction Type:Provider Instructions for Treatment How to Access Health Informa tion Online using Patient Portal and [employer] Apps Indication:Former smoker Start:01-Sep-2021 Instruction Type:Patient Education Patient Instructions Indication:BMI 28.0-28.9,adult Start:05-May-2021 Instruction Type:Provider Instructions for Treatment How to Access Health Informa tion Online using Patient Portal and [employer] Apps Indication:BMI 28.0-28.9,adult Start:05-May-2021 Instruction Type:Patient Education Patient Instructions Indication:Former smoker Start:08-Mar-2021 Instruction Type:Provider Instructions for Treatment How to Access Health Informa tion Online using Patient Portal and [employer] Apps Indication:Former smoker Start:08-Mar-2021 Instruction Type:Patient Education Patient Instructions Indication:BMI 29.0-29.9,adult Start:18-Feb-2021 Instruction Type:Provider Instructions for Treatment How to Access Health Informa tion Online using Patient Portal and [employer] Apps Indication:BMI 29.0-29.9,adult Start:18-Feb-2021 Instruction Type:Patient Education Patient Instructions Indication:BMI 28.0-28.9,adult Start:07-Jan-2021 Instruction Type:Provider Instructions for Treatment How to Access Health Informa tion Online using Patient Portal and [employer] Apps Indication:BMI 28.0-28.9,adult Start:07-Jan-2021 Instruction Type:Patient Education Patient Instructions Indication:Former smoker Start:21-Oct-2020 Instruction Type:Provider Instructions for Treatment How to Access Health Informa tion Online using Patient Portal and [employer] Apps Indication:Former smoker Start:21-Oct-2020 Instruction Type:Patient Education Patient Instructions Indication:BMI 28.0-28.9,adult Start:30-Sep-2020 Instruction Type:Provider Instructions for Treatment How to Access Health Informa tion Online using Patient Portal and [employer] Apps Indication:BMI 28.0-28.9,adult Start:30-Sep-2020 Instruction Type:Patient Education Patient Instructions Indication:Former smoker Start:23-Sep-2020 Instruction Type:Provider Instructions for Treatment How to Access Health Informa tion Online using Patient Portal and [employer] Indication:Hyperglycemia Start:23-Sep-2020 Instruction Type:Patient Education How to Access Health Informa tion Online using Patient Portal and [employer] Apps Indication:Former smoker Start:05-Aug-2020 Instruction Type:Patient Education Patient Instructions Indication:Former smoker Start:05-Aug-2020 Instruction Type:Provider Instructions for Treatment How to Access Health Informa tion Online using Patient Portal and [employer] Apps Indication:Former smoker Start:29-Jun-2020 Instruction Type:Patient Education Patient Instructions Indication:Former smoker Start:29-Jun-2020 Instruction Type:Provider Instructions for Treatment How to Access Health Informa tion Online using Patient Portal and [employer] Apps Indication:Former smoker Start:24-Jun-2020 Instruction Type:Patient Education Patient Instructions Indication:Former smoker Start:24-Jun-2020 Instruction Type:Provider Instructions for Treatment Patient Instructions Indication:Former smoker Start:25-Mar-2020 Instruction Type:Provider Instructions for Treatment How to Access Health Informa tion Online using Patient Portal and [employer] Apps Indication:Former smoker Start:25-Mar-2020 Instruction Type:Patient Education How to Access Health Informa tion Online using Patient Portal and [employer] Apps Indication:Former smoker Start:27-Feb-2020 Instruction Type:Patient Education Patient Instructions Indication:Former smoker Start:27-Feb-2020 Instruction Type:Provider Instructions for Treatment How to access health informa tion online Indication:Former smoker Start:18-Feb-2020 Instruction Type:Patient Education How to access health informa tion online - Detail Indication:Former smoker Start:18-Feb-2020 Instruction Type:Patient Education Patient Instructions Indication:Former smoker Start:18-Feb-2020 Instruction Type:Provider Instructions for Treatment How to access health informa tion online Indication:Former smoker Start:11-Feb-2020 Instruction Type:Patient Education How to access health informa tion online - Detail Indication:Former smoker Start:11-Feb-2020 Instruction Type:Patient Education Patient Instructions Indication:Vitamin B12 deficiency Start:11-Feb-2020 Instruction Type:Provider Instructions for Treatment How to access health informa tion online Indication:Former smoker Start:28-Jan-2020 Instruction Type:Patient Education How to access health informa tion online - Detail Indication:Former smoker Start:28-Jan-2020 Instruction Type:Patient Education Patient Instructions Indication:Former smoker Start:28-Jan-2020 Instruction Type:Provider Instructions for Treatment How to access health informa tion online Indication:BMI 29.0-29.9,adult Start:24-Jan-2020 Instruction Type:Patient Education How to access health informa tion online - Detail Indication:BMI 29.0-29.9,adult Start:24-Jan-2020 Instruction Type:Patient Education Patient Instructions Indication:BMI 29.0-29.9,adult Start:24-Jan-2020 Instruction Type:Provider Instructions for Treatment How to access health informa tion online Indication:BMI 29.0-29.9,adult Start:09-Dec-2019 Instruction Type:Patient Education How to access health informa tion online - Detail Indication:BMI 29.0-29.9,adult Start:09-Dec-2019 Instruction Type:Patient Education Patient Instructions Indication:BMI 29.0-29.9,adult Start:09-Dec-2019 Instruction Type:Provider Instructions for Treatment How to access health informa tion online Indication:Former smoker Start:04-Dec-2019 Instruction Type:Patient Education How to access health informa tion online - Detail Indication:Former smoker Start:04-Dec-2019 Instruction Type:Patient Education Patient Instructions Indication:BMI 29.0-29.9,adult Start:04-Dec-2019 Instruction Type:Provider Instructions for Treatment How to access health informa tion online Indication:Former smoker Start:14-Oct-2019 Instruction Type:Patient Education How to access health informa tion online - Detail Indication:Former smoker Start:14-Oct-2019 Instruction Type:Patient Education Patient Instructions Indication:Former smoker Start:14-Oct-2019 Instruction Type:Provider Instructions for Treatment How to access health informa tion online Indication:Former smoker Start:11-Oct-2019 Instruction Type:Patient Education How to access health informa tion online - Detail Indication:Former smoker Start:11-Oct-2019 Instruction Type:Patient Education Patient Instructions Indication:Former smoker Start:11-Oct-2019 Instruction Type:Provider Instructions for Treatment How to access health informa tion online Indication:BMI 29.0-29.9,adult Start:13-Sep-2019 Instruction Type:Patient Education How to access health informa tion online - Detail Indication:BMI 29.0-29.9,adult Start:13-Sep-2019 Instruction Type:Patient Education Patient Instructions Indication:BMI 29.0-29.9,adult Start:13-Sep-2019 Instruction Type:Provider Instructions for Treatment How to access health informa tion online Indication:Former smoker Start:27-Aug-2019 Instruction Type:Patient Education How to access health informa tion online - Detail Indication:Former smoker Start:27-Aug-2019 Instruction Type:Patient Education Patient Instructions Indication:BMI 29.0-29.9,adult Start:27-Aug-2019 Instruction Type:Provider Instructions for Treatment How to access health informa tion online Indication:Former smoker Start:06-Aug-2019 Instruction Type:Patient Education How to access health informa tion online - Detail Indication:Former smoker Start:06-Aug-2019 Instruction Type:Patient Education Patient Instructions Indication:BMI 29.0-29.9,adult Start:06-Aug-2019 Instruction Type:Provider Instructions for Treatment How to access health informa tion online Indication:BMI 30.0-30.9,adult Start:02-Aug-2019 Instruction Type:Patient Education How to access health informa tion online - Detail Indication:BMI 30.0-30.9,adult Start:02-Aug-2019 Instruction Type:Patient Education Patient Instructions Indication:BMI 30.0-30.9,adult Start:02-Aug-2019 Instruction Type:Provider Instructions for Treatment How to access health informa tion online Indication:BMI 30.0-30.9,adult Start:06-Apr-2018 Instruction Type:Patient Education How to access health informa tion online - Detail Indication:BMI 30.0-30.9,adult Start:06-Apr-2018 Instruction Type:Patient Education Patient Instructions Indication:BMI 30.0-30.9,adult Start:06-Apr-2018 Instruction Type:Provider Instructions for Treatment How to access health informa tion online Indication:Former smoker Start:08-Dec-2017 Instruction Type:Patient Education How to access health informa tion online - Detail Indication:Former smoker Start:08-Dec-2017 Instruction Type:Patient Education Patient Instructions Indication:Former smoker Start:08-Dec-2017 Instruction Type:Provider Instructions for Treatment How to access health informa tion online Indication:Hypertension Start:28-Aug-2017 Instruction Type:Patient Education How to access health informa tion online - Detail Indication:Hypertension Start:28-Aug-2017 Instruction Type:Patient Education Patient Instructions Indication:Hypertension Start:28-Aug-2017 Instruction Type:Provider Instructions for Treatment How to access health informa tion online Indication:Hypertension Start:26-Jun-2017 Instruction Type:Patient Education How to access health informa tion online - Detail Indication:Hypertension Start:26-Jun-2017 Instruction Type:Patient Education Patient Instructions Indication:Hypertension Start:26-Jun-2017 Instruction Type:Provider Instructions for Treatment [facility]; [facility] Work Phone: Instructions* Name Dates Details Patient Instructions Indication:Former smoker Start:24-Nov-2022 Instruction Type:Provider Instructions for Treatment How to Access Health Informa tion Online using Patient Portal and [employer] Apps Indication:Former smoker Start:24-Nov-2022 Instruction Type:Patient Education How to Access Health Informa tion Online using Patient Portal and [employer] Apps Indication:Former smoker Start:24-Nov-2022 Instruction Type:Patient Education Patient Instructions Indication:Former smoker Start:14-Oct-2022 Instruction Type:Provider Instructions for Treatment How to Access Health Informa tion Online using Patient Portal and [employer] Apps Indication:Former smoker Start:14-Oct-2022 Instruction Type:Patient Education Patient Instructions Indication:Former smoker Start:26-Sep-2022 Instruction Type:Provider Instructions for Treatment How to Access Health Informa tion Online using Patient Portal and [employer] Apps Indication:Former smoker Start:26-Sep-2022 Instruction Type:Patient Education Patient Instructions Indication:Former smoker Start:13-Jun-2022 Instruction Type:Provider Instructions for Treatment How to Access Health Informa tion Online using Patient Portal and [employer] Apps Indication:Former smoker Start:13-Jun-2022 Instruction Type:Patient Education Patient Instructions Indication:BMI 29.0-29.9,adult Start:06-Jun-2022 Instruction Type:Provider Instructions for Treatment How to Access Health Informa tion Online using Patient Portal and [employer] Apps Indication:BMI 29.0-29.9,adult Start:06-Jun-2022 Instruction Type:Patient Education Patient Instructions Indication:Former smoker Start:13-May-2022 Instruction Type:Provider Instructions for Treatment How to Access Health Informa tion Online using Patient Portal and [employer] Apps Indication:Former smoker Start:13-May-2022 Instruction Type:Patient Education Patient Instructions Indication:BMI 29.0-29.9,adult Start:28-Mar-2022 Instruction Type:Provider Instructions for Treatment How to Access Health Informa tion Online using Patient Portal and [employer] Apps Indication:BMI 29.0-29.9,adult Start:28-Mar-2022 Instruction Type:Patient Education Patient Instructions Indication:Former smoker Start:13-Oct-2021 Instruction Type:Provider Instructions for Treatment How to Access Health Informa tion Online using Patient Portal and [employer] Apps Indication:Former smoker Start:13-Oct-2021 Instruction Type:Patient Education Patient Instructions Indication:Former smoker Start:01-Sep-2021 Instruction Type:Provider Instructions for Treatment How to Access Health Informa tion Online using Patient Portal and [employer] Apps Indication:Former smoker Start:01-Sep-2021 Instruction Type:Patient Education Patient Instructions Indication:BMI 28.0-28.9,adult Start:05-May-2021 Instruction Type:Provider Instructions for Treatment How to Access Health Informa tion Online using Patient Portal and [employer] Apps Indication:BMI 28.0-28.9,adult Start:05-May-2021 Instruction Type:Patient Education Patient Instructions Indication:Former smoker Start:08-Mar-2021 Instruction Type:Provider Instructions for Treatment How to Access Health Informa tion Online using Patient Portal and [employer] Apps Indication:Former smoker Start:08-Mar-2021 Instruction Type:Patient Education Patient Instructions Indication:BMI 29.0-29.9,adult Start:18-Feb-2021 Instruction Type:Provider Instructions for Treatment How to Access Health Informa tion Online using Patient Portal and [employer] Apps Indication:BMI 29.0-29.9,adult Start:18-Feb-2021 Instruction Type:Patient Education Patient Instructions Indication:BMI 28.0-28.9,adult Start:07-Jan-2021 Instruction Type:Provider Instructions for Treatment How to Access Health Informa tion Online using Patient Portal and [employer] Apps Indication:BMI 28.0-28.9,adult Start:07-Jan-2021 Instruction Type:Patient Education Patient Instructions Indication:Former smoker Start:21-Oct-2020 Instruction Type:Provider Instructions for Treatment How to Access Health Informa tion Online using Patient Portal and [employer] Apps Indication:Former smoker Start:21-Oct-2020 Instruction Type:Patient Education Patient Instructions Indication:BMI 28.0-28.9,adult Start:30-Sep-2020 Instruction Type:Provider Instructions for Treatment How to Access Health Informa tion Online using Patient Portal and [employer] Apps Indication:BMI 28.0-28.9,adult Start:30-Sep-2020 Instruction Type:Patient Education Patient Instructions Indication:Former smoker Start:23-Sep-2020 Instruction Type:Provider Instructions for Treatment How to Access Health Informa tion Online using Patient Portal and [employer] Apps Indication:Hyperglycemia Start:23-Sep-2020 Instruction Type:Patient Education How to Access Health Informa tion Online using Patient Portal and [employer] Apps Indication:Former smoker Start:05-Aug-2020 Instruction Type:Patient Education Patient Instructions Indication:Former smoker Start:05-Aug-2020 Instruction Type:Provider Instructions for Treatment How to Access Health Informa tion Online using Patient Portal and [employer] Apps Indication:Former smoker Start:29-Jun-2020 Instruction Type:Patient Education Patient Instructions Indication:Former smoker Start:29-Jun-2020 Instruction Type:Provider Instructions for Treatment How to Access Health Informa tion Online using Patient Portal and [employer] Apps Indication:Former smoker Start:24-Jun-2020 Instruction Type:Patient Education Patient Instructions Indication:Former smoker Start:24-Jun-2020 Instruction Type:Provider Instructions for Treatment Patient Instructions Indication:Former smoker Start:25-Mar-2020 Instruction Type:Provider Instructions for Treatment How to Access Health Informa tion Online using Patient Portal and [employer] Apps Indication:Former smoker Start:25-Mar-2020 Instruction Type:Patient Education How to Access Health Informa tion Online using Patient Portal and [employer] Apps Indication:Former smoker Start:27-Feb-2020 Instruction Type:Patient Education Patient Instructions Indication:Former smoker Start:27-Feb-2020 Instruction Type:Provider Instructions for Treatment How to access health informa tion online Indication:Former smoker Start:18-Feb-2020 Instruction Type:Patient Education How to access health informa tion online - Detail Indication:Former smoker Start:18-Feb-2020 Instruction Type:Patient Education Patient Instructions Indication:Former smoker Start:18-Feb-2020 Instruction Type:Provider Instructions for Treatment How to access health informa tion online Indication:Former smoker Start:11-Feb-2020 Instruction Type:Patient Education How to access health informa tion online - Detail Indication:Former smoker Start:11-Feb-2020 Instruction Type:Patient Education Patient Instructions Indication:Vitamin B12 deficiency Start:11-Feb-2020 Instruction Type:Provider Instructions for Treatment How to access health informa tion online Indication:Former smoker Start:28-Jan-2020 Instruction Type:Patient Education How to access health informa tion online - Detail Indication:Former smoker Start:28-Jan-2020 Instruction Type:Patient Education Patient Instructions Indication:Former smoker Start:28-Jan-2020 Instruction Type:Provider Instructions for Treatment How to access health informa tion online Indication:BMI 29.0-29.9,adult Start:24-Jan-2020 Instruction Type:Patient Education How to access health informa tion online - Detail Indication:BMI 29.0-29.9,adult Start:24-Jan-2020 Instruction Type:Patient Education Patient Instructions Indication:BMI 29.0-29.9,adult Start:24-Jan-2020 Instruction Type:Provider Instructions for Treatment How to access health informa tion online Indication:BMI 29.0-29.9,adult Start:09-Dec-2019 Instruction Type:Patient Education How to access health informa tion online - Detail Indication:BMI 29.0-29.9,adult Start:09-Dec-2019 Instruction Type:Patient Education Patient Instructions Indication:BMI 29.0-29.9,adult Start:09-Dec-2019 Instruction Type:Provider Instructions for Treatment How to access health informa tion online Indication:Former smoker Start:04-Dec-2019 Instruction Type:Patient Education How to access health informa tion online - Detail Indication:Former smoker Start:04-Dec-2019 Instruction Type:Patient Education Patient Instructions Indication:BMI 29.0-29.9,adult Start:04-Dec-2019 Instruction Type:Provider Instructions for Treatment How to access health informa tion online Indication:Former smoker Start:14-Oct-2019 Instruction Type:Patient Education How to access health informa tion online - Detail Indication:Former smoker Start:14-Oct-2019 Instruction Type:Patient Education Patient Instructions Indication:Former smoker Start:14-Oct-2019 Instruction Type:Provider Instructions for Treatment How to access health informa tion online Indication:Former smoker Start:11-Oct-2019 Instruction Type:Patient Education How to access health informa tion online - Detail Indication:Former smoker Start:11-Oct-2019 Instruction Type:Patient Education Patient Instructions Indication:Former smoker Start:11-Oct-2019 Instruction Type:Provider Instructions for Treatment How to access health informa tion online Indication:BMI 29.0-29.9,adult Start:13-Sep-2019 Instruction Type:Patient Education How to access health informa tion online - Detail Indication:BMI 29.0-29.9,adult Start:13-Sep-2019 Instruction Type:Patient Education Patient Instructions Indication:BMI 29.0-29.9,adult Start:13-Sep-2019 Instruction Type:Provider Instructions for Treatment How to access health informa tion online Indication:Former smoker Start:27-Aug-2019 Instruction Type:Patient Education How to access health informa tion online - Detail Indication:Former smoker Start:27-Aug-2019 Instruction Type:Patient Education Patient Instructions Indication:BMI 29.0-29.9,adult Start:27-Aug-2019 Instruction Type:Provider Instructions for Treatment How to access health informa tion online Indication:Former smoker Start:06-Aug-2019 Instruction Type:Patient Education How to access health informa tion online - Detail Indication:Former smoker Start:06-Aug-2019 Instruction Type:Patient Education Patient Instructions Indication:BMI 29.0-29.9,adult Start:06-Aug-2019 Instruction Type:Provider Instructions for Treatment How to access health informa tion online Indication:BMI 30.0-30.9,adult Start:02-Aug-2019 Instruction Type:Patient Education How to access health informa tion online - Detail Indication:BMI 30.0-30.9,adult Start:02-Aug-2019 Instruction Type:Patient Education Patient Instructions Indication:BMI 30.0-30.9,adult Start:02-Aug-2019 Instruction Type:Provider Instructions for Treatment How to access health informa tion online Indication:BMI 30.0-30.9,adult Start:06-Apr-2018 Instruction Type:Patient Education How to access health informa tion online - Detail Indication:BMI 30.0-30.9,adult Start:06-Apr-2018 Instruction Type:Patient Education Patient Instructions Indication:BMI 30.0-30.9,adult Start:06-Apr-2018 Instruction Type:Provider Instructions for Treatment How to access health informa tion online Indication:Former smoker Start:08-Dec-2017 Instruction Type:Patient Education How to access health informa tion online - Detail Indication:Former smoker Start:08-Dec-2017 Instruction Type:Patient Education Patient Instructions Indication:Former smoker Start:08-Dec-2017 Instruction Type:Provider Instructions for Treatment How to access health informa tion online Indication:Hypertension Start:28-Aug-2017 Instruction Type:Patient Education How to access health informa tion online - Detail Indication:Hypertension Start:28-Aug-2017 Instruction Type:Patient Education Patient Instructions Indication:Hypertension Start:28-Aug-2017 Instruction Type:Provider Instructions for Treatment How to access health informa tion online Indication:Hypertension Start:26-Jun-2017 Instruction Type:Patient Education How to access health informa tion online - Detail Indication:Hypertension Start:26-Jun-2017 Instruction Type:Patient Education Patient Instructions Indication:Hypertension Start:26-Jun-2017 Instruction Type:Provider Instructions for Treatment [facility] Work Phone: reason for referral (narrative)No reason for referral information availableW[facility] Work Phone: Summary Purpose Family History No Family History Records FoundUnknown Family Member Name Dates Details Father Comments:non-small cell carc inoma Status:Active Maternal Grandmother Comments:Alzheimers Status:Active Mother Comments:alzheimers Status:Active Paternal Aunt Comments:[place] Status:Active Unknown Family Member Name Dates Details Father Comments:non-small cell carc inoma Status:Active Maternal Grandmother Comments:Alzheimers Status:Active Mother Comments:alzheimers Status:Active Paternal Aunt Comments:[place] Status:Active Unknown Family Member Name Dates Details Father Comments:non-small cell carc inoma Status:Active Maternal Grandmother Comments:Alzheimers Status:Active Mother Comments:alzheimers Status:Active Paternal Aunt Comments:[place] Status:Active Unknown Family Member Name Dates Details Father Comments:non-small cell carc inoma Status:Active Maternal Grandmother Comments:Alzheimers Status:Active Mother Comments:alzheimers Status:Active Paternal Aunt Comments:[place] Status:Active Unknown Family Member Name Dates Details Father Comments:non-small cell carc inoma Status:Active Maternal Grandmother Comments:Alzheimers Status:Active Mother Comments:alzheimers Status:Active Paternal Aunt Comments:[place] Status:Active Unknown Family Member Name Dates Details Father Comments:non-small cell carc inoma Status:Active Maternal Grandmother Comments:Alzheimers Status:Active Mother Comments:alzheimers Status:Active Paternal Aunt Comments:[place] Status:Active Unknown Family Member Name Dates Details Father Comments:non-small cell carc inoma Status:Active Maternal Grandmother Comments:Alzheimers Status:Active Mother Comments:alzheimers Status:Active Paternal Aunt Comments:[place] Status:Active Unknown Family Member Name Dates Details Father Comments:non-small cell carc inoma Status:Active Maternal Grandmother Comments:Alzheimers Status:Active Mother Comments:alzheimers Status:Active Paternal Aunt Comments:[place] Status:Active Unknown Family Member Name Dates Details Father Comments:non-small cell carc inoma Status:Active Maternal Grandmother Comments:Alzheimers Status:Active Mother Comments:alzheimers Status:Active Paternal Aunt Comments:[place] Status:Active Unknown Family Member Name Dates Details Father Comments:non-small cell carc inoma Status:Active Maternal Grandmother Comments:Alzheimers Status:Active Mother Comments:alzheimers Status:Active Paternal Aunt Comments:[place] Status:Active Unknown Family Member Name Dates Details Father Comments:non-small cell carc inoma Status:Active Maternal Grandmother Comments:Alzheimers Status:Active Mother Comments:alzheimers Status:Active Paternal Aunt Comments:[place] Status:Active Unknown Family Member Name Dates Details Father Comments:non-small cell carc inoma Status:Active Maternal Grandmother Comments:Alzheimers Status:Active Mother Comments:alzheimers Status:Active Paternal Aunt Comments:[place] Status:Active Unknown Family Member Name Dates Details Father Comments:non-small cell carc inoma Status:Active Maternal Grandmother Comments:Alzheimers Status:Active Mother Comments:alzheimers Status:Active Paternal Aunt Comments:[place] Status:Active Unknown Family Member Name Dates Details Father Comments:non-small cell carc inoma Status:Active Maternal Grandmother Comments:Alzheimers Status:Active Mother Comments:alzheimers Status:Active Paternal Aunt Comments:[place] Status:Active Unknown Family Member Name Dates Details Father Comments:non-small cell carc inoma Status:Active Maternal Grandmother Comments:Alzheimers Status:Active Mother Comments:alzheimers Status:Active Paternal Aunt Comments:[place] Status:Active Unknown Family Member Name Dates Details Father Comments:non-small cell carc inoma Status:Active Maternal Grandmother Comments:Alzheimers Status:Active Mother Comments:alzheimers Status:Active Paternal Aunt Comments:[place] Status:Active Unknown Family Member Name Dates Details Father Comments:non-small cell carc inoma Status:Active Maternal Grandmother Comments:Alzheimers Status:Active Mother Comments:alzheimers Status:Active Paternal Aunt Comments:[place] Status:Active Unknown Family Member Name Dates Details Father Comments:non-small cell carc inoma Status:Active Maternal Grandmother Comments:Alzheimers Status:Active Mother Comments:alzheimers Status:Active Paternal Aunt Comments:[place] Status:Active Unknown Family Member Name Dates Details Father Comments:non-small cell carc inoma Status:Active Maternal Grandmother Comments:Alzheimers Status:Active Mother Comments:alzheimers Status:Active Paternal Aunt Comments:[place] Status:Active Unknown Family Member Name Dates Details Father Comments:non-small cell carc inoma Status:Active Maternal Grandmother Comments:Alzheimers Status:Active Mother Comments:alzheimers Status:Active Paternal Aunt Comments:[place] Status:Active Unknown Family Member Name Dates Details Father Comments:non-small cell carc inoma Status:Active Maternal Grandmother Comments:Alzheimers Status:Active Mother Comments:alzheimers Status:Active Paternal Aunt Comments:[place] Status:Active Unknown Family Member Name Dates Details Father Comments:non-small cell carc inoma Status:Active Maternal Grandmother Comments:Alzheimers Status:Active Mother Comments:alzheimers Status:Active Paternal Aunt Comments:[place] Status:Active Unknown Family Member Name Dates Details Father Comments:non-small cell carc inoma Status:Active Maternal Grandmother Comments:Alzheimers Status:Active Mother Comments:alzheimers Status:Active Paternal Aunt Comments:[place] Status:Active Unknown Family Member Name Dates Details Father Comments:non-small cell carc inoma Status:Active Maternal Grandmother Comments:Alzheimers Status:Active Mother Comments:alzheimers Status:Active Paternal Aunt Comments:[place] Status:Active Unknown Family Member Name Dates Details Father Comments:non-small cell carc inoma Status:Active Maternal Grandmother Comments:Alzheimers Status:Active Mother Comments:alzheimers Status:Active Paternal Aunt Comments:[place] Status:Active Unknown Family Member Name Dates Details Father Comments:non-small cell carc inoma Status:Active Maternal Grandmother Comments:Alzheimers Status:Active Mother Comments:alzheimers Status:Active Paternal Aunt Comments:[place] Status:Active Unknown Family Member Name Dates Details Father Comments:non-small cell carc inoma Status:Active Maternal Grandmother Comments:Alzheimers Status:Active Mother Comments:alzheimers Status:Active Paternal Aunt Comments:[place] Status:Active Unknown Family Member Name Dates Details Father Comments:non-small cell carc inoma Status:Active Maternal Grandmother Comments:Alzheimers Status:Active Mother Comments:alzheimers Status:Active Paternal Aunt Comments:[place] Status:Active Unknown Family Member Name Dates Details Father Comments:non-small cell carc inoma Status:Active Maternal Grandmother Comments:Alzheimers Status:Active Mother Comments:alzheimers Status:Active Paternal Aunt Comments:[place] Status:Active Unknown Family Member Name Dates Details Father Comments:non-small cell carc inoma Status:Active Maternal Grandmother Comments:Alzheimers Status:Active Mother Comments:alzheimers Status:Active Paternal Aunt Comments:[place] Status:Active Unknown Family Member Name Dates Details Father Comments:non-small cell carc inoma Status:Active Maternal Grandmother Comments:Alzheimers Status:Active Mother Comments:alzheimers Status:Active Paternal Aunt Comments:[place] Status:Active Unknown Family Member Name Dates Details Father Comments:non-small cell carc inoma Status:Active Maternal Grandmother Comments:Alzheimers Status:Active Mother Comments:alzheimers Status:Active Paternal Aunt Comments:[place] Status:Active Unknown Family Member Name Dates Details Father Comments:non-small cell carc inoma Status:Active Maternal Grandmother Comments:Alzheimers Status:Active Mother Comments:alzheimers Status:Active Paternal Aunt Comments:[place] Status:Active Unknown Family Member Name Dates Details Father Comments:non-small cell carc inoma Status:Active Maternal Grandmother Comments:Alzheimers Status:Active Mother Comments:alzheimers Status:Active Paternal Aunt Comments:[place] Status:Active Unknown Family Member Name Dates Details Father Comments:non-small cell carc inoma Status:Active Maternal Grandmother Comments:Alzheimers Status:Active Mother Comments:alzheimers Status:Active Paternal Aunt Comments:[place] Status:Active Unknown Family Member Name Dates Details Father Comments:non-small cell carc inoma Status:Active Maternal Grandmother Comments:Alzheimers Status:Active Mother Comments:alzheimers Status:Active Paternal Aunt Comments:[place] Status:Active Unknown Family Member Name Dates Details Father Comments:non-small cell carc inoma Status:Active Maternal Grandmother Comments:Alzheimers Status:Active Mother Comments:alzheimers Status:Active Paternal Aunt Comments:[place] Status:Active Unknown Family Member Name Dates Details Father Comments:non-small cell carc inoma Status:Active Maternal Grandmother Comments:Alzheimers Status:Active Mother Comments:alzheimers Status:Active Paternal Aunt Comments:[place] Status:Active Unknown Family Member Name Dates Details Father Comments:non-small cell carc inoma Status:Active Maternal Grandmother Comments:Alzheimers Status:Active Mother Comments:alzheimers Status:Active Paternal Aunt Comments:[place] Status:Active Unknown Family Member Name Dates Details Father Comments:non-small cell carc inoma Status:Active Maternal Grandmother Comments:Alzheimers Status:Active Mother Comments:alzheimers Status:Active Paternal Aunt Comments:[place] Status:Active Unknown Family Member Name Dates Details Father Comments:non-small cell carc inoma Status:Active Maternal Grandmother Comments:Alzheimers Status:Active Mother Comments:alzheimers Status:Active Paternal Aunt Comments:[place] Status:Active Unknown Family Member Name Dates Details Father Comments:non-small cell carc inoma Status:Active Maternal Grandmother Comments:Alzheimers Status:Active Mother Comments:alzheimers Status:Active Paternal Aunt Comments:[place] Status:Active Unknown Family Member Name Dates Details Father Comments:non-small cell carc inoma Status:Active Maternal Grandmother Comments:Alzheimers Status:Active Mother Comments:alzheimers Status:Active Paternal Aunt Comments:[place] Status:Active Unknown Family Member Name Dates Details Father Comments:non-small cell carc inoma Status:Active Maternal Grandmother Comments:Alzheimers Status:Active Mother Comments:alzheimers Status:Active Paternal Aunt Comments:[place] Status:Active Unknown Family Member Name Dates Details Father Comments:non-small cell carc inoma Status:Active Maternal Grandmother Comments:Alzheimers Status:Active Mother Comments:alzheimers Status:Active Paternal Aunt Comments:[place] Status:Active Unknown Family Member Name Dates Details Father Comments:non-small cell carc inoma Status:Active Maternal Grandmother Comments:Alzheimers Status:Active Mother Comments:alzheimers Status:Active Paternal Aunt Comments:[place] Status:Active Relationship Condition Age at [place] Recorded Date/T leonela Not Specified Alzheimer's disease Unknown Multiple sclerosis Unknown Malignant neoplasm Unknown Unknown Family Member Name Dates Details Father Comments:non-small cell carc inoma Status:Active Maternal Grandmother Comments:Alzheimers Status:Active Mother Comments:alzheimers Status:Active Paternal Aunt Comments:[place] Status:Active Unknown Family Member Name Dates Details Father Comments:non-small cell carc inoma Status:Active Maternal Grandmother Comments:Alzheimers Status:Active Mother Comments:alzheimers Status:Active Paternal Aunt Comments:[place] Status:Active Unknown Family Member Name Dates Details Father Comments:non-small cell carc inoma Status:Active Maternal Grandmother Comments:Alzheimers Status:Active Mother Comments:alzheimers Status:Active Paternal Aunt Comments:[place] Status:Active Unknown Family Member Name Dates Details Father Comments:non-small cell carc inoma Status:Active Maternal Grandmother Comments:Alzheimers Status:Active Mother Comments:alzheimers Status:Active Paternal Aunt Comments:[place] Status:Active Unknown Family Member Name Dates Details Father Comments:non-small cell carc inoma Status:Active Maternal Grandmother Comments:Alzheimers Status:Active Mother Comments:alzheimers Status:Active Paternal Aunt Comments:[place] Status:Active Unknown Family Member Name Dates Details Father Comments:non-small cell carc inoma Status:Active Maternal Grandmother Comments:Alzheimers Status:Active Mother Comments:alzheimers Status:Active Paternal Aunt Comments:[place] Status:Active Unknown Family Member Name Dates Details Father Comments:non-small cell carc inoma Status:Active Maternal Grandmother Comments:Alzheimers Status:Active Mother Comments:alzheimers Status:Active Paternal Aunt Comments:[place] Status:Active Unknown Family Member Name Dates Details Father Comments:non-small cell carc inoma Status:Active Maternal Grandmother Comments:Alzheimers Status:Active Mother Comments:alzheimers Status:Active Paternal Aunt Comments:[place] Status:Active Unknown Family Member Name Dates Details Father Comments:non-small cell carc inoma Status:Active Maternal Grandmother Comments:Alzheimers Status:Active Mother Comments:alzheimers Status:Active Paternal Aunt Comments:[place] Status:Active Advance Directives No Advanced Directives Records FoundDocuments on File Type Date 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 Expiration date unspecified Effective:24-Nov-2022 Name Dates Details Immunization Registry [place] - Effective on 11/24/2022. Expiration date unspecified Effective:24-Nov-2022 Advance Directive Response Recorded Date/ Time Do you have a Healthcare Power of Furnace Room Supervisor? No September 16, 2024 11:14am Instructions Name Dates Details BMI 30.0-30.9,adult : How to access health information online Indication:BMI 30.0-30.9,adult BMI 30.0-30.9,adult : How to access health information online - Detail Indication:BMI 30.0-30.9,adult BMI 30.0-30.9,adult : Patien t Instructions Indication:BMI 30.0-30.9,adult Former smoker : How to acces s health information online Indication:Former smoker Former smoker : How to acces s health information online - Detail Indication:Former smoker Former smoker : Patient Inst ructions Indication:Former smoker Hypertension : How to access health information online Indication:Hypertension Hypertension : How to access health information online - Detail Indication:Hypertension Hypertension : Patient Instr uctions Indication:Hypertension Name Dates Details BMI 30.0-30.9,adult : How to access health information online Indication:BMI 30.0-30.9,adult BMI 30.0-30.9,adult : How to access health information online - Detail Indication:BMI 30.0-30.9,adult BMI 30.0-30.9,adult : Patien t Instructions Indication:BMI 30.0-30.9,adult Former smoker : How to acces s health information online Indication:Former smoker Former smoker : How to acces s health information online - Detail Indication:Former smoker Former smoker : Patient Inst ructions Indication:Former smoker Hypertension : How to access health information online Indication:Hypertension Hypertension : How to access health information online - Detail Indication:Hypertension Hypertension : Patient Instr uctions Indication:Hypertension Name Dates Details How to access health informa tion online Indication:Former smoker Start:14-Oct-2019 Instruction Type:Patient Education How to access health informa tion online - Detail Indication:Former smoker Start:14-Oct-2019 Instruction Type:Patient Education Patient Instructions Indication:Former smoker Start:14-Oct-2019 Instruction Type:Provider Instructions for Treatment How to access health informa tion online Indication:Former smoker Start:11-Oct-2019 Instruction Type:Patient Education How to access health informa tion online - Detail Indication:Former smoker Start:11-Oct-2019 Instruction Type:Patient Education Patient Instructions Indication:Former smoker Start:11-Oct-2019 Instruction Type:Provider Instructions for Treatment How to access health informa tion online Indication:BMI 29.0-29.9,adult Start:13-Sep-2019 Instruction Type:Patient Education How to access health informa tion online - Detail Indication:BMI 29.0-29.9,adult Start:13-Sep-2019 Instruction Type:Patient Education Patient Instructions Indication:BMI 29.0-29.9,adult Start:13-Sep-2019 Instruction Type:Provider Instructions for Treatment How to access health informa tion online Indication:Former smoker Start:27-Aug-2019 Instruction Type:Patient Education How to access health informa tion online - Detail Indication:Former smoker Start:27-Aug-2019 Instruction Type:Patient Education Patient Instructions Indication:BMI 29.0-29.9,adult Start:27-Aug-2019 Instruction Type:Provider Instructions for Treatment How to access health informa tion online Indication:Former smoker Start:06-Aug-2019 Instruction Type:Patient Education How to access health informa tion online - Detail Indication:Former smoker Start:06-Aug-2019 Instruction Type:Patient Education Patient Instructions Indication:BMI 29.0-29.9,adult Start:06-Aug-2019 Instruction Type:Provider Instructions for Treatment How to access health informa tion online Indication:BMI 30.0-30.9,adult Start:02-Aug-2019 Instruction Type:Patient Education How to access health informa tion online - Detail Indication:BMI 30.0-30.9,adult Start:02-Aug-2019 Instruction Type:Patient Education Patient Instructions Indication:BMI 30.0-30.9,adult Start:02-Aug-2019 Instruction Type:Provider Instructions for Treatment How to access health informa tion online Indication:BMI 30.0-30.9,adult Start:06-Apr-2018 Instruction Type:Patient Education How to access health informa tion online - Detail Indication:BMI 30.0-30.9,adult Start:06-Apr-2018 Instruction Type:Patient Education Patient Instructions Indication:BMI 30.0-30.9,adult Start:06-Apr-2018 Instruction Type:Provider Instructions for Treatment How to access health informa tion online Indication:Former smoker Start:08-Dec-2017 Instruction Type:Patient Education How to access health informa tion online - Detail Indication:Former smoker Start:08-Dec-2017 Instruction Type:Patient Education Patient Instructions Indication:Former smoker Start:08-Dec-2017 Instruction Type:Provider Instructions for Treatment How to access health informa tion online Indication:Hypertension Start:28-Aug-2017 Instruction Type:Patient Education How to access health informa tion online - Detail Indication:Hypertension Start:28-Aug-2017 Instruction Type:Patient Education Patient Instructions Indication:Hypertension Start:28-Aug-2017 Instruction Type:Provider Instructions for Treatment How to access health informa tion online Indication:Hypertension Start:26-Jun-2017 Instruction Type:Patient Education How to access health informa tion online - Detail Indication:Hypertension Start:26-Jun-2017 Instruction Type:Patient Education Patient Instructions Indication:Hypertension Start:26-Jun-2017 Instruction Type:Provider Instructions for Treatment Name Dates Details How to access health informa tion online Indication:Former smoker Start:14-Oct-2019 Instruction Type:Patient Education How to access health informa tion online - Detail Indication:Former smoker Start:14-Oct-2019 Instruction Type:Patient Education Patient Instructions Indication:Former smoker Start:14-Oct-2019 Instruction Type:Provider Instructions for Treatment How to access health informa tion online Indication:Former smoker Start:11-Oct-2019 Instruction Type:Patient Education How to access health informa tion online - Detail Indication:Former smoker Start:11-Oct-2019 Instruction Type:Patient Education Patient Instructions Indication:Former smoker Start:11-Oct-2019 Instruction Type:Provider Instructions for Treatment How to access health informa tion online Indication:BMI 29.0-29.9,adult Start:13-Sep-2019 Instruction Type:Patient Education How to access health informa tion online - Detail Indication:BMI 29.0-29.9,adult Start:13-Sep-2019 Instruction Type:Patient Education Patient Instructions Indication:BMI 29.0-29.9,adult Start:13-Sep-2019 Instruction Type:Provider Instructions for Treatment How to access health informa tion online Indication:Former smoker Start:27-Aug-2019 Instruction Type:Patient Education How to access health informa tion online - Detail Indication:Former smoker Start:27-Aug-2019 Instruction Type:Patient Education Patient Instructions Indication:BMI 29.0-29.9,adult Start:27-Aug-2019 Instruction Type:Provider Instructions for Treatment How to access health informa tion online Indication:Former smoker Start:06-Aug-2019 Instruction Type:Patient Education How to access health informa tion online - Detail Indication:Former smoker Start:06-Aug-2019 Instruction Type:Patient Education Patient Instructions Indication:BMI 29.0-29.9,adult Start:06-Aug-2019 Instruction Type:Provider Instructions for Treatment How to access health informa tion online Indication:BMI 30.0-30.9,adult Start:02-Aug-2019 Instruction Type:Patient Education How to access health informa tion online - Detail Indication:BMI 30.0-30.9,adult Start:02-Aug-2019 Instruction Type:Patient Education Patient Instructions Indication:BMI 30.0-30.9,adult Start:02-Aug-2019 Instruction Type:Provider Instructions for Treatment How to access health informa tion online Indication:BMI 30.0-30.9,adult Start:06-Apr-2018 Instruction Type:Patient Education How to access health informa tion online - Detail Indication:BMI 30.0-30.9,adult Start:06-Apr-2018 Instruction Type:Patient Education Patient Instructions Indication:BMI 30.0-30.9,adult Start:06-Apr-2018 Instruction Type:Provider Instructions for Treatment How to access health informa tion online Indication:Former smoker Start:08-Dec-2017 Instruction Type:Patient Education How to access health informa tion online - Detail Indication:Former smoker Start:08-Dec-2017 Instruction Type:Patient Education Patient Instructions Indication:Former smoker Start:08-Dec-2017 Instruction Type:Provider Instructions for Treatment How to access health informa tion online Indication:Hypertension Start:28-Aug-2017 Instruction Type:Patient Education How to access health informa tion online - Detail Indication:Hypertension Start:28-Aug-2017 Instruction Type:Patient Education Patient Instructions Indication:Hypertension Start:28-Aug-2017 Instruction Type:Provider Instructions for Treatment How to access health informa tion online Indication:Hypertension Start:26-Jun-2017 Instruction Type:Patient Education How to access health informa tion online - Detail Indication:Hypertension Start:26-Jun-2017 Instruction Type:Patient Education Patient Instructions Indication:Hypertension Start:26-Jun-2017 Instruction Type:Provider Instructions for Treatment Name Dates Details How to access health informa tion online Indication:BMI 29.0-29.9,adult Start:09-Dec-2019 Instruction Type:Patient Education How to access health informa tion online - Detail Indication:BMI 29.0-29.9,adult Start:09-Dec-2019 Instruction Type:Patient Education Patient Instructions Indication:BMI 29.0-29.9,adult Start:09-Dec-2019 Instruction Type:Provider Instructions for Treatment How to access health informa tion online Indication:Former smoker Start:04-Dec-2019 Instruction Type:Patient Education How to access health informa tion online - Detail Indication:Former smoker Start:04-Dec-2019 Instruction Type:Patient Education Patient Instructions Indication:BMI 29.0-29.9,adult Start:04-Dec-2019 Instruction Type:Provider Instructions for Treatment How to access health informa tion online Indication:Former smoker Start:14-Oct-2019 Instruction Type:Patient Education How to access health informa tion online - Detail Indication:Former smoker Start:14-Oct-2019 Instruction Type:Patient Education Patient Instructions Indication:Former smoker Start:14-Oct-2019 Instruction Type:Provider Instructions for Treatment How to access health informa tion online Indication:Former smoker Start:11-Oct-2019 Instruction Type:Patient Education How to access health informa tion online - Detail Indication:Former smoker Start:11-Oct-2019 Instruction Type:Patient Education Patient Instructions Indication:Former smoker Start:11-Oct-2019 Instruction Type:Provider Instructions for Treatment How to access health informa tion online Indication:BMI 29.0-29.9,adult Start:13-Sep-2019 Instruction Type:Patient Education How to access health informa tion online - Detail Indication:BMI 29.0-29.9,adult Start:13-Sep-2019 Instruction Type:Patient Education Patient Instructions Indication:BMI 29.0-29.9,adult Start:13-Sep-2019 Instruction Type:Provider Instructions for Treatment How to access health informa tion online Indication:Former smoker Start:27-Aug-2019 Instruction Type:Patient Education How to access health informa tion online - Detail Indication:Former smoker Start:27-Aug-2019 Instruction Type:Patient Education Patient Instructions Indication:BMI 29.0-29.9,adult Start:27-Aug-2019 Instruction Type:Provider Instructions for Treatment How to access health informa tion online Indication:Former smoker Start:06-Aug-2019 Instruction Type:Patient Education How to access health informa tion online - Detail Indication:Former smoker Start:06-Aug-2019 Instruction Type:Patient Education Patient Instructions Indication:BMI 29.0-29.9,adult Start:06-Aug-2019 Instruction Type:Provider Instructions for Treatment How to access health informa tion online Indication:BMI 30.0-30.9,adult Start:02-Aug-2019 Instruction Type:Patient Education How to access health informa tion online - Detail Indication:BMI 30.0-30.9,adult Start:02-Aug-2019 Instruction Type:Patient Education Patient Instructions Indication:BMI 30.0-30.9,adult Start:02-Aug-2019 Instruction Type:Provider Instructions for Treatment How to access health informa tion online Indication:BMI 30.0-30.9,adult Start:06-Apr-2018 Instruction Type:Patient Education How to access health informa tion online - Detail Indication:BMI 30.0-30.9,adult Start:06-Apr-2018 Instruction Type:Patient Education Patient Instructions Indication:BMI 30.0-30.9,adult Start:06-Apr-2018 Instruction Type:Provider Instructions for Treatment How to access health informa tion online Indication:Former smoker Start:08-Dec-2017 Instruction Type:Patient Education How to access health informa tion online - Detail Indication:Former smoker Start:08-Dec-2017 Instruction Type:Patient Education Patient Instructions Indication:Former smoker Start:08-Dec-2017 Instruction Type:Provider Instructions for Treatment How to access health informa tion online Indication:Hypertension Start:28-Aug-2017 Instruction Type:Patient Education How to access health informa tion online - Detail Indication:Hypertension Start:28-Aug-2017 Instruction Type:Patient Education Patient Instructions Indication:Hypertension Start:28-Aug-2017 Instruction Type:Provider Instructions for Treatment How to access health informa tion online Indication:Hypertension Start:26-Jun-2017 Instruction Type:Patient Education How to access health informa tion online - Detail Indication:Hypertension Start:26-Jun-2017 Instruction Type:Patient Education Patient Instructions Indication:Hypertension Start:26-Jun-2017 Instruction Type:Provider Instructions for Treatment Name Dates Details How to access health informa tion online Indication:BMI 29.0-29.9,adult Start:24-Jan-2020 Instruction Type:Patient Education How to access health informa tion online - Detail Indication:BMI 29.0-29.9,adult Start:24-Jan-2020 Instruction Type:Patient Education Patient Instructions Indication:BMI 29.0-29.9,adult Start:24-Jan-2020 Instruction Type:Provider Instructions for Treatment How to access health informa tion online Indication:BMI 29.0-29.9,adult Start:09-Dec-2019 Instruction Type:Patient Education How to access health informa tion online - Detail Indication:BMI 29.0-29.9,adult Start:09-Dec-2019 Instruction Type:Patient Education Patient Instructions Indication:BMI 29.0-29.9,adult Start:09-Dec-2019 Instruction Type:Provider Instructions for Treatment How to access health informa tion online Indication:Former smoker Start:04-Dec-2019 Instruction Type:Patient Education How to access health informa tion online - Detail Indication:Former smoker Start:04-Dec-2019 Instruction Type:Patient Education Patient Instructions Indication:BMI 29.0-29.9,adult Start:04-Dec-2019 Instruction Type:Provider Instructions for Treatment How to access health informa tion online Indication:Former smoker Start:14-Oct-2019 Instruction Type:Patient Education How to access health informa tion online - Detail Indication:Former smoker Start:14-Oct-2019 Instruction Type:Patient Education Patient Instructions Indication:Former smoker Start:14-Oct-2019 Instruction Type:Provider Instructions for Treatment How to access health informa tion online Indication:Former smoker Start:11-Oct-2019 Instruction Type:Patient Education How to access health informa tion online - Detail Indication:Former smoker Start:11-Oct-2019 Instruction Type:Patient Education Patient Instructions Indication:Former smoker Start:11-Oct-2019 Instruction Type:Provider Instructions for Treatment How to access health informa tion online Indication:BMI 29.0-29.9,adult Start:13-Sep-2019 Instruction Type:Patient Education How to access health informa tion online - Detail Indication:BMI 29.0-29.9,adult Start:13-Sep-2019 Instruction Type:Patient Education Patient Instructions Indication:BMI 29.0-29.9,adult Start:13-Sep-2019 Instruction Type:Provider Instructions for Treatment How to access health informa tion online Indication:Former smoker Start:27-Aug-2019 Instruction Type:Patient Education How to access health informa tion online - Detail Indication:Former smoker Start:27-Aug-2019 Instruction Type:Patient Education Patient Instructions Indication:BMI 29.0-29.9,adult Start:27-Aug-2019 Instruction Type:Provider Instructions for Treatment How to access health informa tion online Indication:Former smoker Start:06-Aug-2019 Instruction Type:Patient Education How to access health informa tion online - Detail Indication:Former smoker Start:06-Aug-2019 Instruction Type:Patient Education Patient Instructions Indication:BMI 29.0-29.9,adult Start:06-Aug-2019 Instruction Type:Provider Instructions for Treatment How to access health informa tion online Indication:BMI 30.0-30.9,adult Start:02-Aug-2019 Instruction Type:Patient Education How to access health informa tion online - Detail Indication:BMI 30.0-30.9,adult Start:02-Aug-2019 Instruction Type:Patient Education Patient Instructions Indication:BMI 30.0-30.9,adult Start:02-Aug-2019 Instruction Type:Provider Instructions for Treatment How to access health informa tion online Indication:BMI 30.0-30.9,adult Start:06-Apr-2018 Instruction Type:Patient Education How to access health informa tion online - Detail Indication:BMI 30.0-30.9,adult Start:06-Apr-2018 Instruction Type:Patient Education Patient Instructions Indication:BMI 30.0-30.9,adult Start:06-Apr-2018 Instruction Type:Provider Instructions for Treatment How to access health informa tion online Indication:Former smoker Start:08-Dec-2017 Instruction Type:Patient Education How to access health informa tion online - Detail Indication:Former smoker Start:08-Dec-2017 Instruction Type:Patient Education Patient Instructions Indication:Former smoker Start:08-Dec-2017 Instruction Type:Provider Instructions for Treatment How to access health informa tion online Indication:Hypertension Start:28-Aug-2017 Instruction Type:Patient Education How to access health informa tion online - Detail Indication:Hypertension Start:28-Aug-2017 Instruction Type:Patient Education Patient Instructions Indication:Hypertension Start:28-Aug-2017 Instruction Type:Provider Instructions for Treatment How to access health informa tion online Indication:Hypertension Start:26-Jun-2017 Instruction Type:Patient Education How to access health informa tion online - Detail Indication:Hypertension Start:26-Jun-2017 Instruction Type:Patient Education Patient Instructions Indication:Hypertension Start:26-Jun-2017 Instruction Type:Provider Instructions for Treatment Name Dates Details How to access health informa tion online Indication:Former smoker Start:28-Jan-2020 Instruction Type:Patient Education How to access health informa tion online - Detail Indication:Former smoker Start:28-Jan-2020 Instruction Type:Patient Education Patient Instructions Indication:Former smoker Start:28-Jan-2020 Instruction Type:Provider Instructions for Treatment How to access health informa tion online Indication:BMI 29.0-29.9,adult Start:24-Jan-2020 Instruction Type:Patient Education How to access health informa tion online - Detail Indication:BMI 29.0-29.9,adult Start:24-Jan-2020 Instruction Type:Patient Education Patient Instructions Indication:BMI 29.0-29.9,adult Start:24-Jan-2020 Instruction Type:Provider Instructions for Treatment How to access health informa tion online Indication:BMI 29.0-29.9,adult Start:09-Dec-2019 Instruction Type:Patient Education How to access health informa tion online - Detail Indication:BMI 29.0-29.9,adult Start:09-Dec-2019 Instruction Type:Patient Education Patient Instructions Indication:BMI 29.0-29.9,adult Start:09-Dec-2019 Instruction Type:Provider Instructions for Treatment How to access health informa tion online Indication:Former smoker Start:04-Dec-2019 Instruction Type:Patient Education How to access health informa tion online - Detail Indication:Former smoker Start:04-Dec-2019 Instruction Type:Patient Education Patient Instructions Indication:BMI 29.0-29.9,adult Start:04-Dec-2019 Instruction Type:Provider Instructions for Treatment How to access health informa tion online Indication:Former smoker Start:14-Oct-2019 Instruction Type:Patient Education How to access health informa tion online - Detail Indication:Former smoker Start:14-Oct-2019 Instruction Type:Patient Education Patient Instructions Indication:Former smoker Start:14-Oct-2019 Instruction Type:Provider Instructions for Treatment How to access health informa tion online Indication:Former smoker Start:11-Oct-2019 Instruction Type:Patient Education How to access health informa tion online - Detail Indication:Former smoker Start:11-Oct-2019 Instruction Type:Patient Education Patient Instructions Indication:Former smoker Start:11-Oct-2019 Instruction Type:Provider Instructions for Treatment How to access health informa tion online Indication:BMI 29.0-29.9,adult Start:13-Sep-2019 Instruction Type:Patient Education How to access health informa tion online - Detail Indication:BMI 29.0-29.9,adult Start:13-Sep-2019 Instruction Type:Patient Education Patient Instructions Indication:BMI 29.0-29.9,adult Start:13-Sep-2019 Instruction Type:Provider Instructions for Treatment How to access health informa tion online Indication:Former smoker Start:27-Aug-2019 Instruction Type:Patient Education How to access health informa tion online - Detail Indication:Former smoker Start:27-Aug-2019 Instruction Type:Patient Education Patient Instructions Indication:BMI 29.0-29.9,adult Start:27-Aug-2019 Instruction Type:Provider Instructions for Treatment How to access health informa tion online Indication:Former smoker Start:06-Aug-2019 Instruction Type:Patient Education How to access health informa tion online - Detail Indication:Former smoker Start:06-Aug-2019 Instruction Type:Patient Education Patient Instructions Indication:BMI 29.0-29.9,adult Start:06-Aug-2019 Instruction Type:Provider Instructions for Treatment How to access health informa tion online Indication:BMI 30.0-30.9,adult Start:02-Aug-2019 Instruction Type:Patient Education How to access health informa tion online - Detail Indication:BMI 30.0-30.9,adult Start:02-Aug-2019 Instruction Type:Patient Education Patient Instructions Indication:BMI 30.0-30.9,adult Start:02-Aug-2019 Instruction Type:Provider Instructions for Treatment How to access health informa tion online Indication:BMI 30.0-30.9,adult Start:06-Apr-2018 Instruction Type:Patient Education How to access health informa tion online - Detail Indication:BMI 30.0-30.9,adult Start:06-Apr-2018 Instruction Type:Patient Education Patient Instructions Indication:BMI 30.0-30.9,adult Start:06-Apr-2018 Instruction Type:Provider Instructions for Treatment How to access health informa tion online Indication:Former smoker Start:08-Dec-2017 Instruction Type:Patient Education How to access health informa tion online - Detail Indication:Former smoker Start:08-Dec-2017 Instruction Type:Patient Education Patient Instructions Indication:Former smoker Start:08-Dec-2017 Instruction Type:Provider Instructions for Treatment How to access health informa tion online Indication:Hypertension Start:28-Aug-2017 Instruction Type:Patient Education How to access health informa tion online - Detail Indication:Hypertension Start:28-Aug-2017 Instruction Type:Patient Education Patient Instructions Indication:Hypertension Start:28-Aug-2017 Instruction Type:Provider Instructions for Treatment How to access health informa tion online Indication:Hypertension Start:26-Jun-2017 Instruction Type:Patient Education How to access health informa tion online - Detail Indication:Hypertension Start:26-Jun-2017 Instruction Type:Patient Education Patient Instructions Indication:Hypertension Start:26-Jun-2017 Instruction Type:Provider Instructions for Treatment Name Dates Details How to access health informa tion online Indication:Former smoker Start:28-Jan-2020 Instruction Type:Patient Education How to access health informa tion online - Detail Indication:Former smoker Start:28-Jan-2020 Instruction Type:Patient Education Patient Instructions Indication:Former smoker Start:28-Jan-2020 Instruction Type:Provider Instructions for Treatment How to access health informa tion online Indication:BMI 29.0-29.9,adult Start:24-Jan-2020 Instruction Type:Patient Education How to access health informa tion online - Detail Indication:BMI 29.0-29.9,adult Start:24-Jan-2020 Instruction Type:Patient Education Patient Instructions Indication:BMI 29.0-29.9,adult Start:24-Jan-2020 Instruction Type:Provider Instructions for Treatment How to access health informa tion online Indication:BMI 29.0-29.9,adult Start:09-Dec-2019 Instruction Type:Patient Education How to access health informa tion online - Detail Indication:BMI 29.0-29.9,adult Start:09-Dec-2019 Instruction Type:Patient Education Patient Instructions Indication:BMI 29.0-29.9,adult Start:09-Dec-2019 Instruction Type:Provider Instructions for Treatment How to access health informa tion online Indication:Former smoker Start:04-Dec-2019 Instruction Type:Patient Education How to access health informa tion online - Detail Indication:Former smoker Start:04-Dec-2019 Instruction Type:Patient Education Patient Instructions Indication:BMI 29.0-29.9,adult Start:04-Dec-2019 Instruction Type:Provider Instructions for Treatment How to access health informa tion online Indication:Former smoker Start:14-Oct-2019 Instruction Type:Patient Education How to access health informa tion online - Detail Indication:Former smoker Start:14-Oct-2019 Instruction Type:Patient Education Patient Instructions Indication:Former smoker Start:14-Oct-2019 Instruction Type:Provider Instructions for Treatment How to access health informa tion online Indication:Former smoker Start:11-Oct-2019 Instruction Type:Patient Education How to access health informa tion online - Detail Indication:Former smoker Start:11-Oct-2019 Instruction Type:Patient Education Patient Instructions Indication:Former smoker Start:11-Oct-2019 Instruction Type:Provider Instructions for Treatment How to access health informa tion online Indication:BMI 29.0-29.9,adult Start:13-Sep-2019 Instruction Type:Patient Education How to access health informa tion online - Detail Indication:BMI 29.0-29.9,adult Start:13-Sep-2019 Instruction Type:Patient Education Patient Instructions Indication:BMI 29.0-29.9,adult Start:13-Sep-2019 Instruction Type:Provider Instructions for Treatment How to access health informa tion online Indication:Former smoker Start:27-Aug-2019 Instruction Type:Patient Education How to access health informa tion online - Detail Indication:Former smoker Start:27-Aug-2019 Instruction Type:Patient Education Patient Instructions Indication:BMI 29.0-29.9,adult Start:27-Aug-2019 Instruction Type:Provider Instructions for Treatment How to access health informa tion online Indication:Former smoker Start:06-Aug-2019 Instruction Type:Patient Education How to access health informa tion online - Detail Indication:Former smoker Start:06-Aug-2019 Instruction Type:Patient Education Patient Instructions Indication:BMI 29.0-29.9,adult Start:06-Aug-2019 Instruction Type:Provider Instructions for Treatment How to access health informa tion online Indication:BMI 30.0-30.9,adult Start:02-Aug-2019 Instruction Type:Patient Education How to access health informa tion online - Detail Indication:BMI 30.0-30.9,adult Start:02-Aug-2019 Instruction Type:Patient Education Patient Instructions Indication:BMI 30.0-30.9,adult Start:02-Aug-2019 Instruction Type:Provider Instructions for Treatment How to access health informa tion online Indication:BMI 30.0-30.9,adult Start:06-Apr-2018 Instruction Type:Patient Education How to access health informa tion online - Detail Indication:BMI 30.0-30.9,adult Start:06-Apr-2018 Instruction Type:Patient Education Patient Instructions Indication:BMI 30.0-30.9,adult Start:06-Apr-2018 Instruction Type:Provider Instructions for Treatment How to access health informa tion online Indication:Former smoker Start:08-Dec-2017 Instruction Type:Patient Education How to access health informa tion online - Detail Indication:Former smoker Start:08-Dec-2017 Instruction Type:Patient Education Patient Instructions Indication:Former smoker Start:08-Dec-2017 Instruction Type:Provider Instructions for Treatment How to access health informa tion online Indication:Hypertension Start:28-Aug-2017 Instruction Type:Patient Education How to access health informa tion online - Detail Indication:Hypertension Start:28-Aug-2017 Instruction Type:Patient Education Patient Instructions Indication:Hypertension Start:28-Aug-2017 Instruction Type:Provider Instructions for Treatment How to access health informa tion online Indication:Hypertension Start:26-Jun-2017 Instruction Type:Patient Education How to access health informa tion online - Detail Indication:Hypertension Start:26-Jun-2017 Instruction Type:Patient Education Patient Instructions Indication:Hypertension Start:26-Jun-2017 Instruction Type:Provider Instructions for Treatment Name Dates Details How to access health informa tion online Indication:Former smoker Start:28-Jan-2020 Instruction Type:Patient Education How to access health informa tion online - Detail Indication:Former smoker Start:28-Jan-2020 Instruction Type:Patient Education Patient Instructions Indication:Former smoker Start:28-Jan-2020 Instruction Type:Provider Instructions for Treatment How to access health informa tion online Indication:BMI 29.0-29.9,adult Start:24-Jan-2020 Instruction Type:Patient Education How to access health informa tion online - Detail Indication:BMI 29.0-29.9,adult Start:24-Jan-2020 Instruction Type:Patient Education Patient Instructions Indication:BMI 29.0-29.9,adult Start:24-Jan-2020 Instruction Type:Provider Instructions for Treatment How to access health informa tion online Indication:BMI 29.0-29.9,adult Start:09-Dec-2019 Instruction Type:Patient Education How to access health informa tion online - Detail Indication:BMI 29.0-29.9,adult Start:09-Dec-2019 Instruction Type:Patient Education Patient Instructions Indication:BMI 29.0-29.9,adult Start:09-Dec-2019 Instruction Type:Provider Instructions for Treatment How to access health informa tion online Indication:Former smoker Start:04-Dec-2019 Instruction Type:Patient Education How to access health informa tion online - Detail Indication:Former smoker Start:04-Dec-2019 Instruction Type:Patient Education Patient Instructions Indication:BMI 29.0-29.9,adult Start:04-Dec-2019 Instruction Type:Provider Instructions for Treatment How to access health informa tion online Indication:Former smoker Start:14-Oct-2019 Instruction Type:Patient Education How to access health informa tion online - Detail Indication:Former smoker Start:14-Oct-2019 Instruction Type:Patient Education Patient Instructions Indication:Former smoker Start:14-Oct-2019 Instruction Type:Provider Instructions for Treatment How to access health informa tion online Indication:Former smoker Start:11-Oct-2019 Instruction Type:Patient Education How to access health informa tion online - Detail Indication:Former smoker Start:11-Oct-2019 Instruction Type:Patient Education Patient Instructions Indication:Former smoker Start:11-Oct-2019 Instruction Type:Provider Instructions for Treatment How to access health informa tion online Indication:BMI 29.0-29.9,adult Start:13-Sep-2019 Instruction Type:Patient Education How to access health informa tion online - Detail Indication:BMI 29.0-29.9,adult Start:13-Sep-2019 Instruction Type:Patient Education Patient Instructions Indication:BMI 29.0-29.9,adult Start:13-Sep-2019 Instruction Type:Provider Instructions for Treatment How to access health informa tion online Indication:Former smoker Start:27-Aug-2019 Instruction Type:Patient Education How to access health informa tion online - Detail Indication:Former smoker Start:27-Aug-2019 Instruction Type:Patient Education Patient Instructions Indication:BMI 29.0-29.9,adult Start:27-Aug-2019 Instruction Type:Provider Instructions for Treatment How to access health informa tion online Indication:Former smoker Start:06-Aug-2019 Instruction Type:Patient Education How to access health informa tion online - Detail Indication:Former smoker Start:06-Aug-2019 Instruction Type:Patient Education Patient Instructions Indication:BMI 29.0-29.9,adult Start:06-Aug-2019 Instruction Type:Provider Instructions for Treatment How to access health informa tion online Indication:BMI 30.0-30.9,adult Start:02-Aug-2019 Instruction Type:Patient Education How to access health informa tion online - Detail Indication:BMI 30.0-30.9,adult Start:02-Aug-2019 Instruction Type:Patient Education Patient Instructions Indication:BMI 30.0-30.9,adult Start:02-Aug-2019 Instruction Type:Provider Instructions for Treatment How to access health informa tion online Indication:BMI 30.0-30.9,adult Start:06-Apr-2018 Instruction Type:Patient Education How to access health informa tion online - Detail Indication:BMI 30.0-30.9,adult Start:06-Apr-2018 Instruction Type:Patient Education Patient Instructions Indication:BMI 30.0-30.9,adult Start:06-Apr-2018 Instruction Type:Provider Instructions for Treatment How to access health informa tion online Indication:Former smoker Start:08-Dec-2017 Instruction Type:Patient Education How to access health informa tion online - Detail Indication:Former smoker Start:08-Dec-2017 Instruction Type:Patient Education Patient Instructions Indication:Former smoker Start:08-Dec-2017 Instruction Type:Provider Instructions for Treatment How to access health informa tion online Indication:Hypertension Start:28-Aug-2017 Instruction Type:Patient Education How to access health informa tion online - Detail Indication:Hypertension Start:28-Aug-2017 Instruction Type:Patient Education Patient Instructions Indication:Hypertension Start:28-Aug-2017 Instruction Type:Provider Instructions for Treatment How to access health informa tion online Indication:Hypertension Start:26-Jun-2017 Instruction Type:Patient Education How to access health informa tion online - Detail Indication:Hypertension Start:26-Jun-2017 Instruction Type:Patient Education Patient Instructions Indication:Hypertension Start:26-Jun-2017 Instruction Type:Provider Instructions for Treatment Name Dates Details How to access health informa tion online Indication:Former smoker Start:18-Feb-2020 Instruction Type:Patient Education How to access health informa tion online - Detail Indication:Former smoker Start:18-Feb-2020 Instruction Type:Patient Education Patient Instructions Indication:Former smoker Start:18-Feb-2020 Instruction Type:Provider Instructions for Treatment How to access health informa tion online Indication:Former smoker Start:11-Feb-2020 Instruction Type:Patient Education How to access health informa tion online - Detail Indication:Former smoker Start:11-Feb-2020 Instruction Type:Patient Education Patient Instructions Indication:Vitamin B12 deficiency Start:11-Feb-2020 Instruction Type:Provider Instructions for Treatment How to access health informa tion online Indication:Former smoker Start:28-Jan-2020 Instruction Type:Patient Education How to access health informa tion online - Detail Indication:Former smoker Start:28-Jan-2020 Instruction Type:Patient Education Patient Instructions Indication:Former smoker Start:28-Jan-2020 Instruction Type:Provider Instructions for Treatment How to access health informa tion online Indication:BMI 29.0-29.9,adult Start:24-Jan-2020 Instruction Type:Patient Education How to access health informa tion online - Detail Indication:BMI 29.0-29.9,adult Start:24-Jan-2020 Instruction Type:Patient Education Patient Instructions Indication:BMI 29.0-29.9,adult Start:24-Jan-2020 Instruction Type:Provider Instructions for Treatment How to access health informa tion online Indication:BMI 29.0-29.9,adult Start:09-Dec-2019 Instruction Type:Patient Education How to access health informa tion online - Detail Indication:BMI 29.0-29.9,adult Start:09-Dec-2019 Instruction Type:Patient Education Patient Instructions Indication:BMI 29.0-29.9,adult Start:09-Dec-2019 Instruction Type:Provider Instructions for Treatment How to access health informa tion online Indication:Former smoker Start:04-Dec-2019 Instruction Type:Patient Education How to access health informa tion online - Detail Indication:Former smoker Start:04-Dec-2019 Instruction Type:Patient Education Patient Instructions Indication:BMI 29.0-29.9,adult Start:04-Dec-2019 Instruction Type:Provider Instructions for Treatment How to access health informa tion online Indication:Former smoker Start:14-Oct-2019 Instruction Type:Patient Education How to access health informa tion online - Detail Indication:Former smoker Start:14-Oct-2019 Instruction Type:Patient Education Patient Instructions Indication:Former smoker Start:14-Oct-2019 Instruction Type:Provider Instructions for Treatment How to access health informa tion online Indication:Former smoker Start:11-Oct-2019 Instruction Type:Patient Education How to access health informa tion online - Detail Indication:Former smoker Start:11-Oct-2019 Instruction Type:Patient Education Patient Instructions Indication:Former smoker Start:11-Oct-2019 Instruction Type:Provider Instructions for Treatment How to access health informa tion online Indication:BMI 29.0-29.9,adult Start:13-Sep-2019 Instruction Type:Patient Education How to access health informa tion online - Detail Indication:BMI 29.0-29.9,adult Start:13-Sep-2019 Instruction Type:Patient Education Patient Instructions Indication:BMI 29.0-29.9,adult Start:13-Sep-2019 Instruction Type:Provider Instructions for Treatment How to access health informa tion online Indication:Former smoker Start:27-Aug-2019 Instruction Type:Patient Education How to access health informa tion online - Detail Indication:Former smoker Start:27-Aug-2019 Instruction Type:Patient Education Patient Instructions Indication:BMI 29.0-29.9,adult Start:27-Aug-2019 Instruction Type:Provider Instructions for Treatment How to access health informa tion online Indication:Former smoker Start:06-Aug-2019 Instruction Type:Patient Education How to access health informa tion online - Detail Indication:Former smoker Start:06-Aug-2019 Instruction Type:Patient Education Patient Instructions Indication:BMI 29.0-29.9,adult Start:06-Aug-2019 Instruction Type:Provider Instructions for Treatment How to access health informa tion online Indication:BMI 30.0-30.9,adult Start:02-Aug-2019 Instruction Type:Patient Education How to access health informa tion online - Detail Indication:BMI 30.0-30.9,adult Start:02-Aug-2019 Instruction Type:Patient Education Patient Instructions Indication:BMI 30.0-30.9,adult Start:02-Aug-2019 Instruction Type:Provider Instructions for Treatment How to access health informa tion online Indication:BMI 30.0-30.9,adult Start:06-Apr-2018 Instruction Type:Patient Education How to access health informa tion online - Detail Indication:BMI 30.0-30.9,adult Start:06-Apr-2018 Instruction Type:Patient Education Patient Instructions Indication:BMI 30.0-30.9,adult Start:06-Apr-2018 Instruction Type:Provider Instructions for Treatment How to access health informa tion online Indication:Former smoker Start:08-Dec-2017 Instruction Type:Patient Education How to access health informa tion online - Detail Indication:Former smoker Start:08-Dec-2017 Instruction Type:Patient Education Patient Instructions Indication:Former smoker Start:08-Dec-2017 Instruction Type:Provider Instructions for Treatment How to access health informa tion online Indication:Hypertension Start:28-Aug-2017 Instruction Type:Patient Education How to access health informa tion online - Detail Indication:Hypertension Start:28-Aug-2017 Instruction Type:Patient Education Patient Instructions Indication:Hypertension Start:28-Aug-2017 Instruction Type:Provider Instructions for Treatment How to access health informa tion online Indication:Hypertension Start:26-Jun-2017 Instruction Type:Patient Education How to access health informa tion online - Detail Indication:Hypertension Start:26-Jun-2017 Instruction Type:Patient Education Patient Instructions Indication:Hypertension Start:26-Jun-2017 Instruction Type:Provider Instructions for Treatment Name Dates Details How to Access Health Informa tion Online using Patient Portal and [employer]rd [employer] Apps Indication:Former smoker Start:27-Feb-2020 Instruction Type:Patient Education Patient Instructions Indication:Former smoker Start:27-Feb-2020 Instruction Type:Provider Instructions for Treatment How to access health informa tion online Indication:Former smoker Start:18-Feb-2020 Instruction Type:Patient Education How to access health informa tion online - Detail Indication:Former smoker Start:18-Feb-2020 Instruction Type:Patient Education Patient Instructions Indication:Former smoker Start:18-Feb-2020 Instruction Type:Provider Instructions for Treatment How to access health informa tion online Indication:Former smoker Start:11-Feb-2020 Instruction Type:Patient Education How to access health informa tion online - Detail Indication:Former smoker Start:11-Feb-2020 Instruction Type:Patient Education Patient Instructions Indication:Vitamin B12 deficiency Start:11-Feb-2020 Instruction Type:Provider Instructions for Treatment How to access health informa tion online Indication:Former smoker Start:28-Jan-2020 Instruction Type:Patient Education How to access health informa tion online - Detail Indication:Former smoker Start:28-Jan-2020 Instruction Type:Patient Education Patient Instructions Indication:Former smoker Start:28-Jan-2020 Instruction Type:Provider Instructions for Treatment How to access health informa tion online Indication:BMI 29.0-29.9,adult Start:24-Jan-2020 Instruction Type:Patient Education How to access health informa tion online - Detail Indication:BMI 29.0-29.9,adult Start:24-Jan-2020 Instruction Type:Patient Education Patient Instructions Indication:BMI 29.0-29.9,adult Start:24-Jan-2020 Instruction Type:Provider Instructions for Treatment How to access health informa tion online Indication:BMI 29.0-29.9,adult Start:09-Dec-2019 Instruction Type:Patient Education How to access health informa tion online - Detail Indication:BMI 29.0-29.9,adult Start:09-Dec-2019 Instruction Type:Patient Education Patient Instructions Indication:BMI 29.0-29.9,adult Start:09-Dec-2019 Instruction Type:Provider Instructions for Treatment How to access health informa tion online Indication:Former smoker Start:04-Dec-2019 Instruction Type:Patient Education How to access health informa tion online - Detail Indication:Former smoker Start:04-Dec-2019 Instruction Type:Patient Education Patient Instructions Indication:BMI 29.0-29.9,adult Start:04-Dec-2019 Instruction Type:Provider Instructions for Treatment How to access health informa tion online Indication:Former smoker Start:14-Oct-2019 Instruction Type:Patient Education How to access health informa tion online - Detail Indication:Former smoker Start:14-Oct-2019 Instruction Type:Patient Education Patient Instructions Indication:Former smoker Start:14-Oct-2019 Instruction Type:Provider Instructions for Treatment How to access health informa tion online Indication:Former smoker Start:11-Oct-2019 Instruction Type:Patient Education How to access health informa tion online - Detail Indication:Former smoker Start:11-Oct-2019 Instruction Type:Patient Education Patient Instructions Indication:Former smoker Start:11-Oct-2019 Instruction Type:Provider Instructions for Treatment How to access health informa tion online Indication:BMI 29.0-29.9,adult Start:13-Sep-2019 Instruction Type:Patient Education How to access health informa tion online - Detail Indication:BMI 29.0-29.9,adult Start:13-Sep-2019 Instruction Type:Patient Education Patient Instructions Indication:BMI 29.0-29.9,adult Start:13-Sep-2019 Instruction Type:Provider Instructions for Treatment How to access health informa tion online Indication:Former smoker Start:27-Aug-2019 Instruction Type:Patient Education How to access health informa tion online - Detail Indication:Former smoker Start:27-Aug-2019 Instruction Type:Patient Education Patient Instructions Indication:BMI 29.0-29.9,adult Start:27-Aug-2019 Instruction Type:Provider Instructions for Treatment How to access health informa tion online Indication:Former smoker Start:06-Aug-2019 Instruction Type:Patient Education How to access health informa tion online - Detail Indication:Former smoker Start:06-Aug-2019 Instruction Type:Patient Education Patient Instructions Indication:BMI 29.0-29.9,adult Start:06-Aug-2019 Instruction Type:Provider Instructions for Treatment How to access health informa tion online Indication:BMI 30.0-30.9,adult Start:02-Aug-2019 Instruction Type:Patient Education How to access health informa tion online - Detail Indication:BMI 30.0-30.9,adult Start:02-Aug-2019 Instruction Type:Patient Education Patient Instructions Indication:BMI 30.0-30.9,adult Start:02-Aug-2019 Instruction Type:Provider Instructions for Treatment How to access health informa tion online Indication:BMI 30.0-30.9,adult Start:06-Apr-2018 Instruction Type:Patient Education How to access health informa tion online - Detail Indication:BMI 30.0-30.9,adult Start:06-Apr-2018 Instruction Type:Patient Education Patient Instructions Indication:BMI 30.0-30.9,adult Start:06-Apr-2018 Instruction Type:Provider Instructions for Treatment How to access health informa tion online Indication:Former smoker Start:08-Dec-2017 Instruction Type:Patient Education How to access health informa tion online - Detail Indication:Former smoker Start:08-Dec-2017 Instruction Type:Patient Education Patient Instructions Indication:Former smoker Start:08-Dec-2017 Instruction Type:Provider Instructions for Treatment How to access health informa tion online Indication:Hypertension Start:28-Aug-2017 Instruction Type:Patient Education How to access health informa tion online - Detail Indication:Hypertension Start:28-Aug-2017 Instruction Type:Patient Education Patient Instructions Indication:Hypertension Start:28-Aug-2017 Instruction Type:Provider Instructions for Treatment How to access health informa tion online Indication:Hypertension Start:26-Jun-2017 Instruction Type:Patient Education How to access health informa tion online - Detail Indication:Hypertension Start:26-Jun-2017 Instruction Type:Patient Education Patient Instructions Indication:Hypertension Start:26-Jun-2017 Instruction Type:Provider Instructions for Treatment Name Dates Details How to Access Health Informa tion Online using Patient Portal and [employer] Apps Indication:Former smoker Start:27-Feb-2020 Instruction Type:Patient Education Patient Instructions Indication:Former smoker Start:27-Feb-2020 Instruction Type:Provider Instructions for Treatment How to access health informa tion online Indication:Former smoker Start:18-Feb-2020 Instruction Type:Patient Education How to access health informa tion online - Detail Indication:Former smoker Start:18-Feb-2020 Instruction Type:Patient Education Patient Instructions Indication:Former smoker Start:18-Feb-2020 Instruction Type:Provider Instructions for Treatment How to access health informa tion online Indication:Former smoker Start:11-Feb-2020 Instruction Type:Patient Education How to access health informa tion online - Detail Indication:Former smoker Start:11-Feb-2020 Instruction Type:Patient Education Patient Instructions Indication:Vitamin B12 deficiency Start:11-Feb-2020 Instruction Type:Provider Instructions for Treatment How to access health informa tion online Indication:Former smoker Start:28-Jan-2020 Instruction Type:Patient Education How to access health informa tion online - Detail Indication:Former smoker Start:28-Jan-2020 Instruction Type:Patient Education Patient Instructions Indication:Former smoker Start:28-Jan-2020 Instruction Type:Provider Instructions for Treatment How to access health informa tion online Indication:BMI 29.0-29.9,adult Start:24-Jan-2020 Instruction Type:Patient Education How to access health informa tion online - Detail Indication:BMI 29.0-29.9,adult Start:24-Jan-2020 Instruction Type:Patient Education Patient Instructions Indication:BMI 29.0-29.9,adult Start:24-Jan-2020 Instruction Type:Provider Instructions for Treatment How to access health informa tion online Indication:BMI 29.0-29.9,adult Start:09-Dec-2019 Instruction Type:Patient Education How to access health informa tion online - Detail Indication:BMI 29.0-29.9,adult Start:09-Dec-2019 Instruction Type:Patient Education Patient Instructions Indication:BMI 29.0-29.9,adult Start:09-Dec-2019 Instruction Type:Provider Instructions for Treatment How to access health informa tion online Indication:Former smoker Start:04-Dec-2019 Instruction Type:Patient Education How to access health informa tion online - Detail Indication:Former smoker Start:04-Dec-2019 Instruction Type:Patient Education Patient Instructions Indication:BMI 29.0-29.9,adult Start:04-Dec-2019 Instruction Type:Provider Instructions for Treatment How to access health informa tion online Indication:Former smoker Start:14-Oct-2019 Instruction Type:Patient Education How to access health informa tion online - Detail Indication:Former smoker Start:14-Oct-2019 Instruction Type:Patient Education Patient Instructions Indication:Former smoker Start:14-Oct-2019 Instruction Type:Provider Instructions for Treatment How to access health informa tion online Indication:Former smoker Start:11-Oct-2019 Instruction Type:Patient Education How to access health informa tion online - Detail Indication:Former smoker Start:11-Oct-2019 Instruction Type:Patient Education Patient Instructions Indication:Former smoker Start:11-Oct-2019 Instruction Type:Provider Instructions for Treatment How to access health informa tion online Indication:BMI 29.0-29.9,adult Start:13-Sep-2019 Instruction Type:Patient Education How to access health informa tion online - Detail Indication:BMI 29.0-29.9,adult Start:13-Sep-2019 Instruction Type:Patient Education Patient Instructions Indication:BMI 29.0-29.9,adult Start:13-Sep-2019 Instruction Type:Provider Instructions for Treatment How to access health informa tion online Indication:Former smoker Start:27-Aug-2019 Instruction Type:Patient Education How to access health informa tion online - Detail Indication:Former smoker Start:27-Aug-2019 Instruction Type:Patient Education Patient Instructions Indication:BMI 29.0-29.9,adult Start:27-Aug-2019 Instruction Type:Provider Instructions for Treatment How to access health informa tion online Indication:Former smoker Start:06-Aug-2019 Instruction Type:Patient Education How to access health informa tion online - Detail Indication:Former smoker Start:06-Aug-2019 Instruction Type:Patient Education Patient Instructions Indication:BMI 29.0-29.9,adult Start:06-Aug-2019 Instruction Type:Provider Instructions for Treatment How to access health informa tion online Indication:BMI 30.0-30.9,adult Start:02-Aug-2019 Instruction Type:Patient Education How to access health informa tion online - Detail Indication:BMI 30.0-30.9,adult Start:02-Aug-2019 Instruction Type:Patient Education Patient Instructions Indication:BMI 30.0-30.9,adult Start:02-Aug-2019 Instruction Type:Provider Instructions for Treatment How to access health informa tion online Indication:BMI 30.0-30.9,adult Start:06-Apr-2018 Instruction Type:Patient Education How to access health informa tion online - Detail Indication:BMI 30.0-30.9,adult Start:06-Apr-2018 Instruction Type:Patient Education Patient Instructions Indication:BMI 30.0-30.9,adult Start:06-Apr-2018 Instruction Type:Provider Instructions for Treatment How to access health informa tion online Indication:Former smoker Start:08-Dec-2017 Instruction Type:Patient Education How to access health informa tion online - Detail Indication:Former smoker Start:08-Dec-2017 Instruction Type:Patient Education Patient Instructions Indication:Former smoker Start:08-Dec-2017 Instruction Type:Provider Instructions for Treatment How to access health informa tion online Indication:Hypertension Start:28-Aug-2017 Instruction Type:Patient Education How to access health informa tion online - Detail Indication:Hypertension Start:28-Aug-2017 Instruction Type:Patient Education Patient Instructions Indication:Hypertension Start:28-Aug-2017 Instruction Type:Provider Instructions for Treatment How to access health informa tion online Indication:Hypertension Start:26-Jun-2017 Instruction Type:Patient Education How to access health informa tion online - Detail Indication:Hypertension Start:26-Jun-2017 Instruction Type:Patient Education Patient Instructions Indication:Hypertension Start:26-Jun-2017 Instruction Type:Provider Instructions for Treatment Name Dates Details Patient Instructions Indication:Former smoker Start:25-Mar-2020 Instruction Type:Provider Instructions for Treatment How to Access Health Informa tion Online using Patient Portal and [employer]rd [employer] Apps Indication:Former smoker Start:25-Mar-2020 Instruction Type:Patient Education How to Access Health Informa tion Online using Patient Portal and [employer] Apps Indication:Former smoker Start:27-Feb-2020 Instruction Type:Patient Education Patient Instructions Indication:Former smoker Start:27-Feb-2020 Instruction Type:Provider Instructions for Treatment How to access health informa tion online Indication:Former smoker Start:18-Feb-2020 Instruction Type:Patient Education How to access health informa tion online - Detail Indication:Former smoker Start:18-Feb-2020 Instruction Type:Patient Education Patient Instructions Indication:Former smoker Start:18-Feb-2020 Instruction Type:Provider Instructions for Treatment How to access health informa tion online Indication:Former smoker Start:11-Feb-2020 Instruction Type:Patient Education How to access health informa tion online - Detail Indication:Former smoker Start:11-Feb-2020 Instruction Type:Patient Education Patient Instructions Indication:Vitamin B12 deficiency Start:11-Feb-2020 Instruction Type:Provider Instructions for Treatment How to access health informa tion online Indication:Former smoker Start:28-Jan-2020 Instruction Type:Patient Education How to access health informa tion online - Detail Indication:Former smoker Start:28-Jan-2020 Instruction Type:Patient Education Patient Instructions Indication:Former smoker Start:28-Jan-2020 Instruction Type:Provider Instructions for Treatment How to access health informa tion online Indication:BMI 29.0-29.9,adult Start:24-Jan-2020 Instruction Type:Patient Education How to access health informa tion online - Detail Indication:BMI 29.0-29.9,adult Start:24-Jan-2020 Instruction Type:Patient Education Patient Instructions Indication:BMI 29.0-29.9,adult Start:24-Jan-2020 Instruction Type:Provider Instructions for Treatment How to access health informa tion online Indication:BMI 29.0-29.9,adult Start:09-Dec-2019 Instruction Type:Patient Education How to access health informa tion online - Detail Indication:BMI 29.0-29.9,adult Start:09-Dec-2019 Instruction Type:Patient Education Patient Instructions Indication:BMI 29.0-29.9,adult Start:09-Dec-2019 Instruction Type:Provider Instructions for Treatment How to access health informa tion online Indication:Former smoker Start:04-Dec-2019 Instruction Type:Patient Education How to access health informa tion online - Detail Indication:Former smoker Start:04-Dec-2019 Instruction Type:Patient Education Patient Instructions Indication:BMI 29.0-29.9,adult Start:04-Dec-2019 Instruction Type:Provider Instructions for Treatment How to access health informa tion online Indication:Former smoker Start:14-Oct-2019 Instruction Type:Patient Education How to access health informa tion online - Detail Indication:Former smoker Start:14-Oct-2019 Instruction Type:Patient Education Patient Instructions Indication:Former smoker Start:14-Oct-2019 Instruction Type:Provider Instructions for Treatment How to access health informa tion online Indication:Former smoker Start:11-Oct-2019 Instruction Type:Patient Education How to access health informa tion online - Detail Indication:Former smoker Start:11-Oct-2019 Instruction Type:Patient Education Patient Instructions Indication:Former smoker Start:11-Oct-2019 Instruction Type:Provider Instructions for Treatment How to access health informa tion online Indication:BMI 29.0-29.9,adult Start:13-Sep-2019 Instruction Type:Patient Education How to access health informa tion online - Detail Indication:BMI 29.0-29.9,adult Start:13-Sep-2019 Instruction Type:Patient Education Patient Instructions Indication:BMI 29.0-29.9,adult Start:13-Sep-2019 Instruction Type:Provider Instructions for Treatment How to access health informa tion online Indication:Former smoker Start:27-Aug-2019 Instruction Type:Patient Education How to access health informa tion online - Detail Indication:Former smoker Start:27-Aug-2019 Instruction Type:Patient Education Patient Instructions Indication:BMI 29.0-29.9,adult Start:27-Aug-2019 Instruction Type:Provider Instructions for Treatment How to access health informa tion online Indication:Former smoker Start:06-Aug-2019 Instruction Type:Patient Education How to access health informa tion online - Detail Indication:Former smoker Start:06-Aug-2019 Instruction Type:Patient Education Patient Instructions Indication:BMI 29.0-29.9,adult Start:06-Aug-2019 Instruction Type:Provider Instructions for Treatment How to access health informa tion online Indication:BMI 30.0-30.9,adult Start:02-Aug-2019 Instruction Type:Patient Education How to access health informa tion online - Detail Indication:BMI 30.0-30.9,adult Start:02-Aug-2019 Instruction Type:Patient Education Patient Instructions Indication:BMI 30.0-30.9,adult Start:02-Aug-2019 Instruction Type:Provider Instructions for Treatment How to access health informa tion online Indication:BMI 30.0-30.9,adult Start:06-Apr-2018 Instruction Type:Patient Education How to access health informa tion online - Detail Indication:BMI 30.0-30.9,adult Start:06-Apr-2018 Instruction Type:Patient Education Patient Instructions Indication:BMI 30.0-30.9,adult Start:06-Apr-2018 Instruction Type:Provider Instructions for Treatment How to access health informa tion online Indication:Former smoker Start:08-Dec-2017 Instruction Type:Patient Education How to access health informa tion online - Detail Indication:Former smoker Start:08-Dec-2017 Instruction Type:Patient Education Patient Instructions Indication:Former smoker Start:08-Dec-2017 Instruction Type:Provider Instructions for Treatment How to access health informa tion online Indication:Hypertension Start:28-Aug-2017 Instruction Type:Patient Education How to access health informa tion online - Detail Indication:Hypertension Start:28-Aug-2017 Instruction Type:Patient Education Patient Instructions Indication:Hypertension Start:28-Aug-2017 Instruction Type:Provider Instructions for Treatment How to access health informa tion online Indication:Hypertension Start:26-Jun-2017 Instruction Type:Patient Education How to access health informa tion online - Detail Indication:Hypertension Start:26-Jun-2017 Instruction Type:Patient Education Patient Instructions Indication:Hypertension Start:26-Jun-2017 Instruction Type:Provider Instructions for Treatment Name Dates Details Patient Instructions Indication:Former smoker Start:25-Mar-2020 Instruction Type:Provider Instructions for Treatment How to Access Health Informa tion Online using Patient Portal and [employer]rd [employer] Apps Indication:Former smoker Start:25-Mar-2020 Instruction Type:Patient Education How to Access Health Informa tion Online using Patient Portal and [employer]rd [employer] Apps Indication:Former smoker Start:27-Feb-2020 Instruction Type:Patient Education Patient Instructions Indication:Former smoker Start:27-Feb-2020 Instruction Type:Provider Instructions for Treatment How to access health informa tion online Indication:Former smoker Start:18-Feb-2020 Instruction Type:Patient Education How to access health informa tion online - Detail Indication:Former smoker Start:18-Feb-2020 Instruction Type:Patient Education Patient Instructions Indication:Former smoker Start:18-Feb-2020 Instruction Type:Provider Instructions for Treatment How to access health informa tion online Indication:Former smoker Start:11-Feb-2020 Instruction Type:Patient Education How to access health informa tion online - Detail Indication:Former smoker Start:11-Feb-2020 Instruction Type:Patient Education Patient Instructions Indication:Vitamin B12 deficiency Start:11-Feb-2020 Instruction Type:Provider Instructions for Treatment How to access health informa tion online Indication:Former smoker Start:28-Jan-2020 Instruction Type:Patient Education How to access health informa tion online - Detail Indication:Former smoker Start:28-Jan-2020 Instruction Type:Patient Education Patient Instructions Indication:Former smoker Start:28-Jan-2020 Instruction Type:Provider Instructions for Treatment How to access health informa tion online Indication:BMI 29.0-29.9,adult Start:24-Jan-2020 Instruction Type:Patient Education How to access health informa tion online - Detail Indication:BMI 29.0-29.9,adult Start:24-Jan-2020 Instruction Type:Patient Education Patient Instructions Indication:BMI 29.0-29.9,adult Start:24-Jan-2020 Instruction Type:Provider Instructions for Treatment How to access health informa tion online Indication:BMI 29.0-29.9,adult Start:09-Dec-2019 Instruction Type:Patient Education How to access health informa tion online - Detail Indication:BMI 29.0-29.9,adult Start:09-Dec-2019 Instruction Type:Patient Education Patient Instructions Indication:BMI 29.0-29.9,adult Start:09-Dec-2019 Instruction Type:Provider Instructions for Treatment How to access health informa tion online Indication:Former smoker Start:04-Dec-2019 Instruction Type:Patient Education How to access health informa tion online - Detail Indication:Former smoker Start:04-Dec-2019 Instruction Type:Patient Education Patient Instructions Indication:BMI 29.0-29.9,adult Start:04-Dec-2019 Instruction Type:Provider Instructions for Treatment How to access health informa tion online Indication:Former smoker Start:14-Oct-2019 Instruction Type:Patient Education How to access health informa tion online - Detail Indication:Former smoker Start:14-Oct-2019 Instruction Type:Patient Education Patient Instructions Indication:Former smoker Start:14-Oct-2019 Instruction Type:Provider Instructions for Treatment How to access health informa tion online Indication:Former smoker Start:11-Oct-2019 Instruction Type:Patient Education How to access health informa tion online - Detail Indication:Former smoker Start:11-Oct-2019 Instruction Type:Patient Education Patient Instructions Indication:Former smoker Start:11-Oct-2019 Instruction Type:Provider Instructions for Treatment How to access health informa tion online Indication:BMI 29.0-29.9,adult Start:13-Sep-2019 Instruction Type:Patient Education How to access health informa tion online - Detail Indication:BMI 29.0-29.9,adult Start:13-Sep-2019 Instruction Type:Patient Education Patient Instructions Indication:BMI 29.0-29.9,adult Start:13-Sep-2019 Instruction Type:Provider Instructions for Treatment How to access health informa tion online Indication:Former smoker Start:27-Aug-2019 Instruction Type:Patient Education How to access health informa tion online - Detail Indication:Former smoker Start:27-Aug-2019 Instruction Type:Patient Education Patient Instructions Indication:BMI 29.0-29.9,adult Start:27-Aug-2019 Instruction Type:Provider Instructions for Treatment How to access health informa tion online Indication:Former smoker Start:06-Aug-2019 Instruction Type:Patient Education How to access health informa tion online - Detail Indication:Former smoker Start:06-Aug-2019 Instruction Type:Patient Education Patient Instructions Indication:BMI 29.0-29.9,adult Start:06-Aug-2019 Instruction Type:Provider Instructions for Treatment How to access health informa tion online Indication:BMI 30.0-30.9,adult Start:02-Aug-2019 Instruction Type:Patient Education How to access health informa tion online - Detail Indication:BMI 30.0-30.9,adult Start:02-Aug-2019 Instruction Type:Patient Education Patient Instructions Indication:BMI 30.0-30.9,adult Start:02-Aug-2019 Instruction Type:Provider Instructions for Treatment How to access health informa tion online Indication:BMI 30.0-30.9,adult Start:06-Apr-2018 Instruction Type:Patient Education How to access health informa tion online - Detail Indication:BMI 30.0-30.9,adult Start:06-Apr-2018 Instruction Type:Patient Education Patient Instructions Indication:BMI 30.0-30.9,adult Start:06-Apr-2018 Instruction Type:Provider Instructions for Treatment How to access health informa tion online Indication:Former smoker Start:08-Dec-2017 Instruction Type:Patient Education How to access health informa tion online - Detail Indication:Former smoker Start:08-Dec-2017 Instruction Type:Patient Education Patient Instructions Indication:Former smoker Start:08-Dec-2017 Instruction Type:Provider Instructions for Treatment How to access health informa tion online Indication:Hypertension Start:28-Aug-2017 Instruction Type:Patient Education How to access health informa tion online - Detail Indication:Hypertension Start:28-Aug-2017 Instruction Type:Patient Education Patient Instructions Indication:Hypertension Start:28-Aug-2017 Instruction Type:Provider Instructions for Treatment How to access health informa tion online Indication:Hypertension Start:26-Jun-2017 Instruction Type:Patient Education How to access health informa tion online - Detail Indication:Hypertension Start:26-Jun-2017 Instruction Type:Patient Education Patient Instructions Indication:Hypertension Start:26-Jun-2017 Instruction Type:Provider Instructions for Treatment Name Dates Details How to access health informa tion online Indication:Former smoker Start:11-Feb-2020 Instruction Type:Patient Education How to access health informa tion online - Detail Indication:Former smoker Start:11-Feb-2020 Instruction Type:Patient Education Patient Instructions Indication:Vitamin B12 deficiency Start:11-Feb-2020 Instruction Type:Provider Instructions for Treatment How to access health informa tion online Indication:Former smoker Start:28-Jan-2020 Instruction Type:Patient Education How to access health informa tion online - Detail Indication:Former smoker Start:28-Jan-2020 Instruction Type:Patient Education Patient Instructions Indication:Former smoker Start:28-Jan-2020 Instruction Type:Provider Instructions for Treatment How to access health informa tion online Indication:BMI 29.0-29.9,adult Start:24-Jan-2020 Instruction Type:Patient Education How to access health informa tion online - Detail Indication:BMI 29.0-29.9,adult Start:24-Jan-2020 Instruction Type:Patient Education Patient Instructions Indication:BMI 29.0-29.9,adult Start:24-Jan-2020 Instruction Type:Provider Instructions for Treatment How to access health informa tion online Indication:BMI 29.0-29.9,adult Start:09-Dec-2019 Instruction Type:Patient Education How to access health informa tion online - Detail Indication:BMI 29.0-29.9,adult Start:09-Dec-2019 Instruction Type:Patient Education Patient Instructions Indication:BMI 29.0-29.9,adult Start:09-Dec-2019 Instruction Type:Provider Instructions for Treatment How to access health informa tion online Indication:Former smoker Start:04-Dec-2019 Instruction Type:Patient Education How to access health informa tion online - Detail Indication:Former smoker Start:04-Dec-2019 Instruction Type:Patient Education Patient Instructions Indication:BMI 29.0-29.9,adult Start:04-Dec-2019 Instruction Type:Provider Instructions for Treatment How to access health informa tion online Indication:Former smoker Start:14-Oct-2019 Instruction Type:Patient Education How to access health informa tion online - Detail Indication:Former smoker Start:14-Oct-2019 Instruction Type:Patient Education Patient Instructions Indication:Former smoker Start:14-Oct-2019 Instruction Type:Provider Instructions for Treatment How to access health informa tion online Indication:Former smoker Start:11-Oct-2019 Instruction Type:Patient Education How to access health informa tion online - Detail Indication:Former smoker Start:11-Oct-2019 Instruction Type:Patient Education Patient Instructions Indication:Former smoker Start:11-Oct-2019 Instruction Type:Provider Instructions for Treatment How to access health informa tion online Indication:BMI 29.0-29.9,adult Start:13-Sep-2019 Instruction Type:Patient Education How to access health informa tion online - Detail Indication:BMI 29.0-29.9,adult Start:13-Sep-2019 Instruction Type:Patient Education Patient Instructions Indication:BMI 29.0-29.9,adult Start:13-Sep-2019 Instruction Type:Provider Instructions for Treatment How to access health informa tion online Indication:Former smoker Start:27-Aug-2019 Instruction Type:Patient Education How to access health informa tion online - Detail Indication:Former smoker Start:27-Aug-2019 Instruction Type:Patient Education Patient Instructions Indication:BMI 29.0-29.9,adult Start:27-Aug-2019 Instruction Type:Provider Instructions for Treatment How to access health informa tion online Indication:Former smoker Start:06-Aug-2019 Instruction Type:Patient Education How to access health informa tion online - Detail Indication:Former smoker Start:06-Aug-2019 Instruction Type:Patient Education Patient Instructions Indication:BMI 29.0-29.9,adult Start:06-Aug-2019 Instruction Type:Provider Instructions for Treatment How to access health informa tion online Indication:BMI 30.0-30.9,adult Start:02-Aug-2019 Instruction Type:Patient Education How to access health informa tion online - Detail Indication:BMI 30.0-30.9,adult Start:02-Aug-2019 Instruction Type:Patient Education Patient Instructions Indication:BMI 30.0-30.9,adult Start:02-Aug-2019 Instruction Type:Provider Instructions for Treatment How to access health informa tion online Indication:BMI 30.0-30.9,adult Start:06-Apr-2018 Instruction Type:Patient Education How to access health informa tion online - Detail Indication:BMI 30.0-30.9,adult Start:06-Apr-2018 Instruction Type:Patient Education Patient Instructions Indication:BMI 30.0-30.9,adult Start:06-Apr-2018 Instruction Type:Provider Instructions for Treatment How to access health informa tion online Indication:Former smoker Start:08-Dec-2017 Instruction Type:Patient Education How to access health informa tion online - Detail Indication:Former smoker Start:08-Dec-2017 Instruction Type:Patient Education Patient Instructions Indication:Former smoker Start:08-Dec-2017 Instruction Type:Provider Instructions for Treatment How to access health informa tion online Indication:Hypertension Start:28-Aug-2017 Instruction Type:Patient Education How to access health informa tion online - Detail Indication:Hypertension Start:28-Aug-2017 Instruction Type:Patient Education Patient Instructions Indication:Hypertension Start:28-Aug-2017 Instruction Type:Provider Instructions for Treatment How to access health informa tion online Indication:Hypertension Start:26-Jun-2017 Instruction Type:Patient Education How to access health informa tion online - Detail Indication:Hypertension Start:26-Jun-2017 Instruction Type:Patient Education Patient Instructions Indication:Hypertension Start:26-Jun-2017 Instruction Type:Provider Instructions for Treatment Name Dates Details Patient Instructions Indication:Former smoker Start:25-Mar-2020 Instruction Type:Provider Instructions for Treatment How to Access Health Informa tion Online using Patient Portal and [employer]rd [employer] Apps Indication:Former smoker Start:25-Mar-2020 Instruction Type:Patient Education How to Access Health Informa tion Online using Patient Portal and [employer]rd [employer] Apps Indication:Former smoker Start:27-Feb-2020 Instruction Type:Patient Education Patient Instructions Indication:Former smoker Start:27-Feb-2020 Instruction Type:Provider Instructions for Treatment How to access health informa tion online Indication:Former smoker Start:18-Feb-2020 Instruction Type:Patient Education How to access health informa tion online - Detail Indication:Former smoker Start:18-Feb-2020 Instruction Type:Patient Education Patient Instructions Indication:Former smoker Start:18-Feb-2020 Instruction Type:Provider Instructions for Treatment How to access health informa tion online Indication:Former smoker Start:11-Feb-2020 Instruction Type:Patient Education How to access health informa tion online - Detail Indication:Former smoker Start:11-Feb-2020 Instruction Type:Patient Education Patient Instructions Indication:Vitamin B12 deficiency Start:11-Feb-2020 Instruction Type:Provider Instructions for Treatment How to access health informa tion online Indication:Former smoker Start:28-Jan-2020 Instruction Type:Patient Education How to access health informa tion online - Detail Indication:Former smoker Start:28-Jan-2020 Instruction Type:Patient Education Patient Instructions Indication:Former smoker Start:28-Jan-2020 Instruction Type:Provider Instructions for Treatment How to access health informa tion online Indication:BMI 29.0-29.9,adult Start:24-Jan-2020 Instruction Type:Patient Education How to access health informa tion online - Detail Indication:BMI 29.0-29.9,adult Start:24-Jan-2020 Instruction Type:Patient Education Patient Instructions Indication:BMI 29.0-29.9,adult Start:24-Jan-2020 Instruction Type:Provider Instructions for Treatment How to access health informa tion online Indication:BMI 29.0-29.9,adult Start:09-Dec-2019 Instruction Type:Patient Education How to access health informa tion online - Detail Indication:BMI 29.0-29.9,adult Start:09-Dec-2019 Instruction Type:Patient Education Patient Instructions Indication:BMI 29.0-29.9,adult Start:09-Dec-2019 Instruction Type:Provider Instructions for Treatment How to access health informa tion online Indication:Former smoker Start:04-Dec-2019 Instruction Type:Patient Education How to access health informa tion online - Detail Indication:Former smoker Start:04-Dec-2019 Instruction Type:Patient Education Patient Instructions Indication:BMI 29.0-29.9,adult Start:04-Dec-2019 Instruction Type:Provider Instructions for Treatment How to access health informa tion online Indication:Former smoker Start:14-Oct-2019 Instruction Type:Patient Education How to access health informa tion online - Detail Indication:Former smoker Start:14-Oct-2019 Instruction Type:Patient Education Patient Instructions Indication:Former smoker Start:14-Oct-2019 Instruction Type:Provider Instructions for Treatment How to access health informa tion online Indication:Former smoker Start:11-Oct-2019 Instruction Type:Patient Education How to access health informa tion online - Detail Indication:Former smoker Start:11-Oct-2019 Instruction Type:Patient Education Patient Instructions Indication:Former smoker Start:11-Oct-2019 Instruction Type:Provider Instructions for Treatment How to access health informa tion online Indication:BMI 29.0-29.9,adult Start:13-Sep-2019 Instruction Type:Patient Education How to access health informa tion online - Detail Indication:BMI 29.0-29.9,adult Start:13-Sep-2019 Instruction Type:Patient Education Patient Instructions Indication:BMI 29.0-29.9,adult Start:13-Sep-2019 Instruction Type:Provider Instructions for Treatment How to access health informa tion online Indication:Former smoker Start:27-Aug-2019 Instruction Type:Patient Education How to access health informa tion online - Detail Indication:Former smoker Start:27-Aug-2019 Instruction Type:Patient Education Patient Instructions Indication:BMI 29.0-29.9,adult Start:27-Aug-2019 Instruction Type:Provider Instructions for Treatment How to access health informa tion online Indication:Former smoker Start:06-Aug-2019 Instruction Type:Patient Education How to access health informa tion online - Detail Indication:Former smoker Start:06-Aug-2019 Instruction Type:Patient Education Patient Instructions Indication:BMI 29.0-29.9,adult Start:06-Aug-2019 Instruction Type:Provider Instructions for Treatment How to access health informa tion online Indication:BMI 30.0-30.9,adult Start:02-Aug-2019 Instruction Type:Patient Education How to access health informa tion online - Detail Indication:BMI 30.0-30.9,adult Start:02-Aug-2019 Instruction Type:Patient Education Patient Instructions Indication:BMI 30.0-30.9,adult Start:02-Aug-2019 Instruction Type:Provider Instructions for Treatment How to access health informa tion online Indication:BMI 30.0-30.9,adult Start:06-Apr-2018 Instruction Type:Patient Education How to access health informa tion online - Detail Indication:BMI 30.0-30.9,adult Start:06-Apr-2018 Instruction Type:Patient Education Patient Instructions Indication:BMI 30.0-30.9,adult Start:06-Apr-2018 Instruction Type:Provider Instructions for Treatment How to access health informa tion online Indication:Former smoker Start:08-Dec-2017 Instruction Type:Patient Education How to access health informa tion online - Detail Indication:Former smoker Start:08-Dec-2017 Instruction Type:Patient Education Patient Instructions Indication:Former smoker Start:08-Dec-2017 Instruction Type:Provider Instructions for Treatment How to access health informa tion online Indication:Hypertension Start:28-Aug-2017 Instruction Type:Patient Education How to access health informa tion online - Detail Indication:Hypertension Start:28-Aug-2017 Instruction Type:Patient Education Patient Instructions Indication:Hypertension Start:28-Aug-2017 Instruction Type:Provider Instructions for Treatment How to access health informa tion online Indication:Hypertension Start:26-Jun-2017 Instruction Type:Patient Education How to access health informa tion online - Detail Indication:Hypertension Start:26-Jun-2017 Instruction Type:Patient Education Patient Instructions Indication:Hypertension Start:26-Jun-2017 Instruction Type:Provider Instructions for Treatment Name Dates Details Patient Instructions Indication:Former smoker Start:25-Mar-2020 Instruction Type:Provider Instructions for Treatment How to Access Health Informa tion Online using Patient Portal and [employer]rd [employer] Apps Indication:Former smoker Start:25-Mar-2020 Instruction Type:Patient Education How to Access Health Informa tion Online using Patient Portal and [employer]rd [employer] Apps Indication:Former smoker Start:27-Feb-2020 Instruction Type:Patient Education Patient Instructions Indication:Former smoker Start:27-Feb-2020 Instruction Type:Provider Instructions for Treatment How to access health informa tion online Indication:Former smoker Start:18-Feb-2020 Instruction Type:Patient Education How to access health informa tion online - Detail Indication:Former smoker Start:18-Feb-2020 Instruction Type:Patient Education Patient Instructions Indication:Former smoker Start:18-Feb-2020 Instruction Type:Provider Instructions for Treatment How to access health informa tion online Indication:Former smoker Start:11-Feb-2020 Instruction Type:Patient Education How to access health informa tion online - Detail Indication:Former smoker Start:11-Feb-2020 Instruction Type:Patient Education Patient Instructions Indication:Vitamin B12 deficiency Start:11-Feb-2020 Instruction Type:Provider Instructions for Treatment How to access health informa tion online Indication:Former smoker Start:28-Jan-2020 Instruction Type:Patient Education How to access health informa tion online - Detail Indication:Former smoker Start:28-Jan-2020 Instruction Type:Patient Education Patient Instructions Indication:Former smoker Start:28-Jan-2020 Instruction Type:Provider Instructions for Treatment How to access health informa tion online Indication:BMI 29.0-29.9,adult Start:24-Jan-2020 Instruction Type:Patient Education How to access health informa tion online - Detail Indication:BMI 29.0-29.9,adult Start:24-Jan-2020 Instruction Type:Patient Education Patient Instructions Indication:BMI 29.0-29.9,adult Start:24-Jan-2020 Instruction Type:Provider Instructions for Treatment How to access health informa tion online Indication:BMI 29.0-29.9,adult Start:09-Dec-2019 Instruction Type:Patient Education How to access health informa tion online - Detail Indication:BMI 29.0-29.9,adult Start:09-Dec-2019 Instruction Type:Patient Education Patient Instructions Indication:BMI 29.0-29.9,adult Start:09-Dec-2019 Instruction Type:Provider Instructions for Treatment How to access health informa tion online Indication:Former smoker Start:04-Dec-2019 Instruction Type:Patient Education How to access health informa tion online - Detail Indication:Former smoker Start:04-Dec-2019 Instruction Type:Patient Education Patient Instructions Indication:BMI 29.0-29.9,adult Start:04-Dec-2019 Instruction Type:Provider Instructions for Treatment How to access health informa tion online Indication:Former smoker Start:14-Oct-2019 Instruction Type:Patient Education How to access health informa tion online - Detail Indication:Former smoker Start:14-Oct-2019 Instruction Type:Patient Education Patient Instructions Indication:Former smoker Start:14-Oct-2019 Instruction Type:Provider Instructions for Treatment How to access health informa tion online Indication:Former smoker Start:11-Oct-2019 Instruction Type:Patient Education How to access health informa tion online - Detail Indication:Former smoker Start:11-Oct-2019 Instruction Type:Patient Education Patient Instructions Indication:Former smoker Start:11-Oct-2019 Instruction Type:Provider Instructions for Treatment How to access health informa tion online Indication:BMI 29.0-29.9,adult Start:13-Sep-2019 Instruction Type:Patient Education How to access health informa tion online - Detail Indication:BMI 29.0-29.9,adult Start:13-Sep-2019 Instruction Type:Patient Education Patient Instructions Indication:BMI 29.0-29.9,adult Start:13-Sep-2019 Instruction Type:Provider Instructions for Treatment How to access health informa tion online Indication:Former smoker Start:27-Aug-2019 Instruction Type:Patient Education How to access health informa tion online - Detail Indication:Former smoker Start:27-Aug-2019 Instruction Type:Patient Education Patient Instructions Indication:BMI 29.0-29.9,adult Start:27-Aug-2019 Instruction Type:Provider Instructions for Treatment How to access health informa tion online Indication:Former smoker Start:06-Aug-2019 Instruction Type:Patient Education How to access health informa tion online - Detail Indication:Former smoker Start:06-Aug-2019 Instruction Type:Patient Education Patient Instructions Indication:BMI 29.0-29.9,adult Start:06-Aug-2019 Instruction Type:Provider Instructions for Treatment How to access health informa tion online Indication:BMI 30.0-30.9,adult Start:02-Aug-2019 Instruction Type:Patient Education How to access health informa tion online - Detail Indication:BMI 30.0-30.9,adult Start:02-Aug-2019 Instruction Type:Patient Education Patient Instructions Indication:BMI 30.0-30.9,adult Start:02-Aug-2019 Instruction Type:Provider Instructions for Treatment How to access health informa tion online Indication:BMI 30.0-30.9,adult Start:06-Apr-2018 Instruction Type:Patient Education How to access health informa tion online - Detail Indication:BMI 30.0-30.9,adult Start:06-Apr-2018 Instruction Type:Patient Education Patient Instructions Indication:BMI 30.0-30.9,adult Start:06-Apr-2018 Instruction Type:Provider Instructions for Treatment How to access health informa tion online Indication:Former smoker Start:08-Dec-2017 Instruction Type:Patient Education How to access health informa tion online - Detail Indication:Former smoker Start:08-Dec-2017 Instruction Type:Patient Education Patient Instructions Indication:Former smoker Start:08-Dec-2017 Instruction Type:Provider Instructions for Treatment How to access health informa tion online Indication:Hypertension Start:28-Aug-2017 Instruction Type:Patient Education How to access health informa tion online - Detail Indication:Hypertension Start:28-Aug-2017 Instruction Type:Patient Education Patient Instructions Indication:Hypertension Start:28-Aug-2017 Instruction Type:Provider Instructions for Treatment How to access health informa tion online Indication:Hypertension Start:26-Jun-2017 Instruction Type:Patient Education How to access health informa tion online - Detail Indication:Hypertension Start:26-Jun-2017 Instruction Type:Patient Education Patient Instructions Indication:Hypertension Start:26-Jun-2017 Instruction Type:Provider Instructions for Treatment Name Dates Details How to access health informa tion online Indication:BMI 30.0-30.9,adult Start:06-Apr-2018 Instruction Type:Patient Education How to access health informa tion online - Detail Indication:BMI 30.0-30.9,adult Start:06-Apr-2018 Instruction Type:Patient Education Patient Instructions Indication:BMI 30.0-30.9,adult Start:06-Apr-2018 Instruction Type:Provider Instructions for Treatment How to access health informa tion online Indication:Former smoker Start:08-Dec-2017 Instruction Type:Patient Education How to access health informa tion online - Detail Indication:Former smoker Start:08-Dec-2017 Instruction Type:Patient Education Patient Instructions Indication:Former smoker Start:08-Dec-2017 Instruction Type:Provider Instructions for Treatment How to access health informa tion online Indication:Hypertension Start:28-Aug-2017 Instruction Type:Patient Education How to access health informa tion online - Detail Indication:Hypertension Start:28-Aug-2017 Instruction Type:Patient Education Patient Instructions Indication:Hypertension Start:28-Aug-2017 Instruction Type:Provider Instructions for Treatment How to access health informa tion online Indication:Hypertension Start:26-Jun-2017 Instruction Type:Patient Education How to access health informa tion online - Detail Indication:Hypertension Start:26-Jun-2017 Instruction Type:Patient Education Patient Instructions Indication:Hypertension Start:26-Jun-2017 Instruction Type:Provider Instructions for Treatment Name Dates Details How to access health informa tion online Indication:Former smoker Start:28-Jan-2020 Instruction Type:Patient Education How to access health informa tion online - Detail Indication:Former smoker Start:28-Jan-2020 Instruction Type:Patient Education Patient Instructions Indication:Former smoker Start:28-Jan-2020 Instruction Type:Provider Instructions for Treatment How to access health informa tion online Indication:BMI 29.0-29.9,adult Start:24-Jan-2020 Instruction Type:Patient Education How to access health informa tion online - Detail Indication:BMI 29.0-29.9,adult Start:24-Jan-2020 Instruction Type:Patient Education Patient Instructions Indication:BMI 29.0-29.9,adult Start:24-Jan-2020 Instruction Type:Provider Instructions for Treatment How to access health informa tion online Indication:BMI 29.0-29.9,adult Start:09-Dec-2019 Instruction Type:Patient Education How to access health informa tion online - Detail Indication:BMI 29.0-29.9,adult Start:09-Dec-2019 Instruction Type:Patient Education Patient Instructions Indication:BMI 29.0-29.9,adult Start:09-Dec-2019 Instruction Type:Provider Instructions for Treatment How to access health informa tion online Indication:Former smoker Start:04-Dec-2019 Instruction Type:Patient Education How to access health informa tion online - Detail Indication:Former smoker Start:04-Dec-2019 Instruction Type:Patient Education Patient Instructions Indication:BMI 29.0-29.9,adult Start:04-Dec-2019 Instruction Type:Provider Instructions for Treatment How to access health informa tion online Indication:Former smoker Start:14-Oct-2019 Instruction Type:Patient Education How to access health informa tion online - Detail Indication:Former smoker Start:14-Oct-2019 Instruction Type:Patient Education Patient Instructions Indication:Former smoker Start:14-Oct-2019 Instruction Type:Provider Instructions for Treatment How to access health informa tion online Indication:Former smoker Start:11-Oct-2019 Instruction Type:Patient Education How to access health informa tion online - Detail Indication:Former smoker Start:11-Oct-2019 Instruction Type:Patient Education Patient Instructions Indication:Former smoker Start:11-Oct-2019 Instruction Type:Provider Instructions for Treatment How to access health informa tion online Indication:BMI 29.0-29.9,adult Start:13-Sep-2019 Instruction Type:Patient Education How to access health informa tion online - Detail Indication:BMI 29.0-29.9,adult Start:13-Sep-2019 Instruction Type:Patient Education Patient Instructions Indication:BMI 29.0-29.9,adult Start:13-Sep-2019 Instruction Type:Provider Instructions for Treatment How to access health informa tion online Indication:Former smoker Start:27-Aug-2019 Instruction Type:Patient Education How to access health informa tion online - Detail Indication:Former smoker Start:27-Aug-2019 Instruction Type:Patient Education Patient Instructions Indication:BMI 29.0-29.9,adult Start:27-Aug-2019 Instruction Type:Provider Instructions for Treatment How to access health informa tion online Indication:Former smoker Start:06-Aug-2019 Instruction Type:Patient Education How to access health informa tion online - Detail Indication:Former smoker Start:06-Aug-2019 Instruction Type:Patient Education Patient Instructions Indication:BMI 29.0-29.9,adult Start:06-Aug-2019 Instruction Type:Provider Instructions for Treatment How to access health informa tion online Indication:BMI 30.0-30.9,adult Start:02-Aug-2019 Instruction Type:Patient Education How to access health informa tion online - Detail Indication:BMI 30.0-30.9,adult Start:02-Aug-2019 Instruction Type:Patient Education Patient Instructions Indication:BMI 30.0-30.9,adult Start:02-Aug-2019 Instruction Type:Provider Instructions for Treatment How to access health informa tion online Indication:BMI 30.0-30.9,adult Start:06-Apr-2018 Instruction Type:Patient Education How to access health informa tion online - Detail Indication:BMI 30.0-30.9,adult Start:06-Apr-2018 Instruction Type:Patient Education Patient Instructions Indication:BMI 30.0-30.9,adult Start:06-Apr-2018 Instruction Type:Provider Instructions for Treatment How to access health informa tion online Indication:Former smoker Start:08-Dec-2017 Instruction Type:Patient Education How to access health informa tion online - Detail Indication:Former smoker Start:08-Dec-2017 Instruction Type:Patient Education Patient Instructions Indication:Former smoker Start:08-Dec-2017 Instruction Type:Provider Instructions for Treatment How to access health informa tion online Indication:Hypertension Start:28-Aug-2017 Instruction Type:Patient Education How to access health informa tion online - Detail Indication:Hypertension Start:28-Aug-2017 Instruction Type:Patient Education Patient Instructions Indication:Hypertension Start:28-Aug-2017 Instruction Type:Provider Instructions for Treatment How to access health informa tion online Indication:Hypertension Start:26-Jun-2017 Instruction Type:Patient Education How to access health informa tion online - Detail Indication:Hypertension Start:26-Jun-2017 Instruction Type:Patient Education Patient Instructions Indication:Hypertension Start:26-Jun-2017 Instruction Type:Provider Instructions for Treatment Name Dates Details How to access health informa tion online Indication:Former smoker Start:11-Feb-2020 Instruction Type:Patient Education How to access health informa tion online - Detail Indication:Former smoker Start:11-Feb-2020 Instruction Type:Patient Education Patient Instructions Indication:Vitamin B12 deficiency Start:11-Feb-2020 Instruction Type:Provider Instructions for Treatment How to access health informa tion online Indication:Former smoker Start:28-Jan-2020 Instruction Type:Patient Education How to access health informa tion online - Detail Indication:Former smoker Start:28-Jan-2020 Instruction Type:Patient Education Patient Instructions Indication:Former smoker Start:28-Jan-2020 Instruction Type:Provider Instructions for Treatment How to access health informa tion online Indication:BMI 29.0-29.9,adult Start:24-Jan-2020 Instruction Type:Patient Education How to access health informa tion online - Detail Indication:BMI 29.0-29.9,adult Start:24-Jan-2020 Instruction Type:Patient Education Patient Instructions Indication:BMI 29.0-29.9,adult Start:24-Jan-2020 Instruction Type:Provider Instructions for Treatment How to access health informa tion online Indication:BMI 29.0-29.9,adult Start:09-Dec-2019 Instruction Type:Patient Education How to access health informa tion online - Detail Indication:BMI 29.0-29.9,adult Start:09-Dec-2019 Instruction Type:Patient Education Patient Instructions Indication:BMI 29.0-29.9,adult Start:09-Dec-2019 Instruction Type:Provider Instructions for Treatment How to access health informa tion online Indication:Former smoker Start:04-Dec-2019 Instruction Type:Patient Education How to access health informa tion online - Detail Indication:Former smoker Start:04-Dec-2019 Instruction Type:Patient Education Patient Instructions Indication:BMI 29.0-29.9,adult Start:04-Dec-2019 Instruction Type:Provider Instructions for Treatment How to access health informa tion online Indication:Former smoker Start:14-Oct-2019 Instruction Type:Patient Education How to access health informa tion online - Detail Indication:Former smoker Start:14-Oct-2019 Instruction Type:Patient Education Patient Instructions Indication:Former smoker Start:14-Oct-2019 Instruction Type:Provider Instructions for Treatment How to access health informa tion online Indication:Former smoker Start:11-Oct-2019 Instruction Type:Patient Education How to access health informa tion online - Detail Indication:Former smoker Start:11-Oct-2019 Instruction Type:Patient Education Patient Instructions Indication:Former smoker Start:11-Oct-2019 Instruction Type:Provider Instructions for Treatment How to access health informa tion online Indication:BMI 29.0-29.9,adult Start:13-Sep-2019 Instruction Type:Patient Education How to access health informa tion online - Detail Indication:BMI 29.0-29.9,adult Start:13-Sep-2019 Instruction Type:Patient Education Patient Instructions Indication:BMI 29.0-29.9,adult Start:13-Sep-2019 Instruction Type:Provider Instructions for Treatment How to access health informa tion online Indication:Former smoker Start:27-Aug-2019 Instruction Type:Patient Education How to access health informa tion online - Detail Indication:Former smoker Start:27-Aug-2019 Instruction Type:Patient Education Patient Instructions Indication:BMI 29.0-29.9,adult Start:27-Aug-2019 Instruction Type:Provider Instructions for Treatment How to access health informa tion online Indication:Former smoker Start:06-Aug-2019 Instruction Type:Patient Education How to access health informa tion online - Detail Indication:Former smoker Start:06-Aug-2019 Instruction Type:Patient Education Patient Instructions Indication:BMI 29.0-29.9,adult Start:06-Aug-2019 Instruction Type:Provider Instructions for Treatment How to access health informa tion online Indication:BMI 30.0-30.9,adult Start:02-Aug-2019 Instruction Type:Patient Education How to access health informa tion online - Detail Indication:BMI 30.0-30.9,adult Start:02-Aug-2019 Instruction Type:Patient Education Patient Instructions Indication:BMI 30.0-30.9,adult Start:02-Aug-2019 Instruction Type:Provider Instructions for Treatment How to access health informa tion online Indication:BMI 30.0-30.9,adult Start:06-Apr-2018 Instruction Type:Patient Education How to access health informa tion online - Detail Indication:BMI 30.0-30.9,adult Start:06-Apr-2018 Instruction Type:Patient Education Patient Instructions Indication:BMI 30.0-30.9,adult Start:06-Apr-2018 Instruction Type:Provider Instructions for Treatment How to access health informa tion online Indication:Former smoker Start:08-Dec-2017 Instruction Type:Patient Education How to access health informa tion online - Detail Indication:Former smoker Start:08-Dec-2017 Instruction Type:Patient Education Patient Instructions Indication:Former smoker Start:08-Dec-2017 Instruction Type:Provider Instructions for Treatment How to access health informa tion online Indication:Hypertension Start:28-Aug-2017 Instruction Type:Patient Education How to access health informa tion online - Detail Indication:Hypertension Start:28-Aug-2017 Instruction Type:Patient Education Patient Instructions Indication:Hypertension Start:28-Aug-2017 Instruction Type:Provider Instructions for Treatment How to access health informa tion online Indication:Hypertension Start:26-Jun-2017 Instruction Type:Patient Education How to access health informa tion online - Detail Indication:Hypertension Start:26-Jun-2017 Instruction Type:Patient Education Patient Instructions Indication:Hypertension Start:26-Jun-2017 Instruction Type:Provider Instructions for Treatment Name Dates Details How to access health informa tion online Indication:Former smoker Start:14-Oct-2019 Instruction Type:Patient Education How to access health informa tion online - Detail Indication:Former smoker Start:14-Oct-2019 Instruction Type:Patient Education Patient Instructions Indication:Former smoker Start:14-Oct-2019 Instruction Type:Provider Instructions for Treatment How to access health informa tion online Indication:Former smoker Start:11-Oct-2019 Instruction Type:Patient Education How to access health informa tion online - Detail Indication:Former smoker Start:11-Oct-2019 Instruction Type:Patient Education Patient Instructions Indication:Former smoker Start:11-Oct-2019 Instruction Type:Provider Instructions for Treatment How to access health informa tion online Indication:BMI 29.0-29.9,adult Start:13-Sep-2019 Instruction Type:Patient Education How to access health informa tion online - Detail Indication:BMI 29.0-29.9,adult Start:13-Sep-2019 Instruction Type:Patient Education Patient Instructions Indication:BMI 29.0-29.9,adult Start:13-Sep-2019 Instruction Type:Provider Instructions for Treatment How to access health informa tion online Indication:Former smoker Start:27-Aug-2019 Instruction Type:Patient Education How to access health informa tion online - Detail Indication:Former smoker Start:27-Aug-2019 Instruction Type:Patient Education Patient Instructions Indication:BMI 29.0-29.9,adult Start:27-Aug-2019 Instruction Type:Provider Instructions for Treatment How to access health informa tion online Indication:Former smoker Start:06-Aug-2019 Instruction Type:Patient Education How to access health informa tion online - Detail Indication:Former smoker Start:06-Aug-2019 Instruction Type:Patient Education Patient Instructions Indication:BMI 29.0-29.9,adult Start:06-Aug-2019 Instruction Type:Provider Instructions for Treatment How to access health informa tion online Indication:BMI 30.0-30.9,adult Start:02-Aug-2019 Instruction Type:Patient Education How to access health informa tion online - Detail Indication:BMI 30.0-30.9,adult Start:02-Aug-2019 Instruction Type:Patient Education Patient Instructions Indication:BMI 30.0-30.9,adult Start:02-Aug-2019 Instruction Type:Provider Instructions for Treatment How to access health informa tion online Indication:BMI 30.0-30.9,adult Start:06-Apr-2018 Instruction Type:Patient Education How to access health informa tion online - Detail Indication:BMI 30.0-30.9,adult Start:06-Apr-2018 Instruction Type:Patient Education Patient Instructions Indication:BMI 30.0-30.9,adult Start:06-Apr-2018 Instruction Type:Provider Instructions for Treatment How to access health informa tion online Indication:Former smoker Start:08-Dec-2017 Instruction Type:Patient Education How to access health informa tion online - Detail Indication:Former smoker Start:08-Dec-2017 Instruction Type:Patient Education Patient Instructions Indication:Former smoker Start:08-Dec-2017 Instruction Type:Provider Instructions for Treatment How to access health informa tion online Indication:Hypertension Start:28-Aug-2017 Instruction Type:Patient Education How to access health informa tion online - Detail Indication:Hypertension Start:28-Aug-2017 Instruction Type:Patient Education Patient Instructions Indication:Hypertension Start:28-Aug-2017 Instruction Type:Provider Instructions for Treatment How to access health informa tion online Indication:Hypertension Start:26-Jun-2017 Instruction Type:Patient Education How to access health informa tion online - Detail Indication:Hypertension Start:26-Jun-2017 Instruction Type:Patient Education Patient Instructions Indication:Hypertension Start:26-Jun-2017 Instruction Type:Provider Instructions for Treatment Name Dates Details How to Access Health Informa tion Online using Patient Portal and [employer]rd [employer] Indication:Former smoker Start:24-Jun-2020 Instruction Type:Patient Education Patient Instructions Indication:Former smoker Start:24-Jun-2020 Instruction Type:Provider Instructions for Treatment Patient Instructions Indication:Former smoker Start:25-Mar-2020 Instruction Type:Provider Instructions for Treatment How to Access Health Informa tion Online using Patient Portal and [employer]rd [employer] Indication:Former smoker Start:25-Mar-2020 Instruction Type:Patient Education How to Access Health Informa tion Online using Patient Portal and [employer]rd [employer] Indication:Former smoker Start:27-Feb-2020 Instruction Type:Patient Education Patient Instructions Indication:Former smoker Start:27-Feb-2020 Instruction Type:Provider Instructions for Treatment How to access health informa tion online Indication:Former smoker Start:18-Feb-2020 Instruction Type:Patient Education How to access health informa tion online - Detail Indication:Former smoker Start:18-Feb-2020 Instruction Type:Patient Education Patient Instructions Indication:Former smoker Start:18-Feb-2020 Instruction Type:Provider Instructions for Treatment How to access health informa tion online Indication:Former smoker Start:11-Feb-2020 Instruction Type:Patient Education How to access health informa tion online - Detail Indication:Former smoker Start:11-Feb-2020 Instruction Type:Patient Education Patient Instructions Indication:Vitamin B12 deficiency Start:11-Feb-2020 Instruction Type:Provider Instructions for Treatment How to access health informa tion online Indication:Former smoker Start:28-Jan-2020 Instruction Type:Patient Education How to access health informa tion online - Detail Indication:Former smoker Start:28-Jan-2020 Instruction Type:Patient Education Patient Instructions Indication:Former smoker Start:28-Jan-2020 Instruction Type:Provider Instructions for Treatment How to access health informa tion online Indication:BMI 29.0-29.9,adult Start:24-Jan-2020 Instruction Type:Patient Education How to access health informa tion online - Detail Indication:BMI 29.0-29.9,adult Start:24-Jan-2020 Instruction Type:Patient Education Patient Instructions Indication:BMI 29.0-29.9,adult Start:24-Jan-2020 Instruction Type:Provider Instructions for Treatment How to access health informa tion online Indication:BMI 29.0-29.9,adult Start:09-Dec-2019 Instruction Type:Patient Education How to access health informa tion online - Detail Indication:BMI 29.0-29.9,adult Start:09-Dec-2019 Instruction Type:Patient Education Patient Instructions Indication:BMI 29.0-29.9,adult Start:09-Dec-2019 Instruction Type:Provider Instructions for Treatment How to access health informa tion online Indication:Former smoker Start:04-Dec-2019 Instruction Type:Patient Education How to access health informa tion online - Detail Indication:Former smoker Start:04-Dec-2019 Instruction Type:Patient Education Patient Instructions Indication:BMI 29.0-29.9,adult Start:04-Dec-2019 Instruction Type:Provider Instructions for Treatment How to access health informa tion online Indication:Former smoker Start:14-Oct-2019 Instruction Type:Patient Education How to access health informa tion online - Detail Indication:Former smoker Start:14-Oct-2019 Instruction Type:Patient Education Patient Instructions Indication:Former smoker Start:14-Oct-2019 Instruction Type:Provider Instructions for Treatment How to access health informa tion online Indication:Former smoker Start:11-Oct-2019 Instruction Type:Patient Education How to access health informa tion online - Detail Indication:Former smoker Start:11-Oct-2019 Instruction Type:Patient Education Patient Instructions Indication:Former smoker Start:11-Oct-2019 Instruction Type:Provider Instructions for Treatment How to access health informa tion online Indication:BMI 29.0-29.9,adult Start:13-Sep-2019 Instruction Type:Patient Education How to access health informa tion online - Detail Indication:BMI 29.0-29.9,adult Start:13-Sep-2019 Instruction Type:Patient Education Patient Instructions Indication:BMI 29.0-29.9,adult Start:13-Sep-2019 Instruction Type:Provider Instructions for Treatment How to access health informa tion online Indication:Former smoker Start:27-Aug-2019 Instruction Type:Patient Education How to access health informa tion online - Detail Indication:Former smoker Start:27-Aug-2019 Instruction Type:Patient Education Patient Instructions Indication:BMI 29.0-29.9,adult Start:27-Aug-2019 Instruction Type:Provider Instructions for Treatment How to access health informa tion online Indication:Former smoker Start:06-Aug-2019 Instruction Type:Patient Education How to access health informa tion online - Detail Indication:Former smoker Start:06-Aug-2019 Instruction Type:Patient Education Patient Instructions Indication:BMI 29.0-29.9,adult Start:06-Aug-2019 Instruction Type:Provider Instructions for Treatment How to access health informa tion online Indication:BMI 30.0-30.9,adult Start:02-Aug-2019 Instruction Type:Patient Education How to access health informa tion online - Detail Indication:BMI 30.0-30.9,adult Start:02-Aug-2019 Instruction Type:Patient Education Patient Instructions Indication:BMI 30.0-30.9,adult Start:02-Aug-2019 Instruction Type:Provider Instructions for Treatment How to access health informa tion online Indication:BMI 30.0-30.9,adult Start:06-Apr-2018 Instruction Type:Patient Education How to access health informa tion online - Detail Indication:BMI 30.0-30.9,adult Start:06-Apr-2018 Instruction Type:Patient Education Patient Instructions Indication:BMI 30.0-30.9,adult Start:06-Apr-2018 Instruction Type:Provider Instructions for Treatment How to access health informa tion online Indication:Former smoker Start:08-Dec-2017 Instruction Type:Patient Education How to access health informa tion online - Detail Indication:Former smoker Start:08-Dec-2017 Instruction Type:Patient Education Patient Instructions Indication:Former smoker Start:08-Dec-2017 Instruction Type:Provider Instructions for Treatment How to access health informa tion online Indication:Hypertension Start:28-Aug-2017 Instruction Type:Patient Education How to access health informa tion online - Detail Indication:Hypertension Start:28-Aug-2017 Instruction Type:Patient Education Patient Instructions Indication:Hypertension Start:28-Aug-2017 Instruction Type:Provider Instructions for Treatment How to access health informa tion online Indication:Hypertension Start:26-Jun-2017 Instruction Type:Patient Education How to access health informa tion online - Detail Indication:Hypertension Start:26-Jun-2017 Instruction Type:Patient Education Patient Instructions Indication:Hypertension Start:26-Jun-2017 Instruction Type:Provider Instructions for Treatment Name Dates Details How to Access Health Informa tion Online using Patient Portal and [employer]rd [employer] Apps Indication:Former smoker Start:24-Jun-2020 Instruction Type:Patient Education Patient Instructions Indication:Former smoker Start:24-Jun-2020 Instruction Type:Provider Instructions for Treatment Patient Instructions Indication:Former smoker Start:25-Mar-2020 Instruction Type:Provider Instructions for Treatment How to Access Health Informa tion Online using Patient Portal and [employer]rd [employer] Apps Indication:Former smoker Start:25-Mar-2020 Instruction Type:Patient Education How to Access Health Informa tion Online using Patient Portal and [employer]rd [employer] Apps Indication:Former smoker Start:27-Feb-2020 Instruction Type:Patient Education Patient Instructions Indication:Former smoker Start:27-Feb-2020 Instruction Type:Provider Instructions for Treatment How to access health informa tion online Indication:Former smoker Start:18-Feb-2020 Instruction Type:Patient Education How to access health informa tion online - Detail Indication:Former smoker Start:18-Feb-2020 Instruction Type:Patient Education Patient Instructions Indication:Former smoker Start:18-Feb-2020 Instruction Type:Provider Instructions for Treatment How to access health informa tion online Indication:Former smoker Start:11-Feb-2020 Instruction Type:Patient Education How to access health informa tion online - Detail Indication:Former smoker Start:11-Feb-2020 Instruction Type:Patient Education Patient Instructions Indication:Vitamin B12 deficiency Start:11-Feb-2020 Instruction Type:Provider Instructions for Treatment How to access health informa tion online Indication:Former smoker Start:28-Jan-2020 Instruction Type:Patient Education How to access health informa tion online - Detail Indication:Former smoker Start:28-Jan-2020 Instruction Type:Patient Education Patient Instructions Indication:Former smoker Start:28-Jan-2020 Instruction Type:Provider Instructions for Treatment How to access health informa tion online Indication:BMI 29.0-29.9,adult Start:24-Jan-2020 Instruction Type:Patient Education How to access health informa tion online - Detail Indication:BMI 29.0-29.9,adult Start:24-Jan-2020 Instruction Type:Patient Education Patient Instructions Indication:BMI 29.0-29.9,adult Start:24-Jan-2020 Instruction Type:Provider Instructions for Treatment How to access health informa tion online Indication:BMI 29.0-29.9,adult Start:09-Dec-2019 Instruction Type:Patient Education How to access health informa tion online - Detail Indication:BMI 29.0-29.9,adult Start:09-Dec-2019 Instruction Type:Patient Education Patient Instructions Indication:BMI 29.0-29.9,adult Start:09-Dec-2019 Instruction Type:Provider Instructions for Treatment How to access health informa tion online Indication:Former smoker Start:04-Dec-2019 Instruction Type:Patient Education How to access health informa tion online - Detail Indication:Former smoker Start:04-Dec-2019 Instruction Type:Patient Education Patient Instructions Indication:BMI 29.0-29.9,adult Start:04-Dec-2019 Instruction Type:Provider Instructions for Treatment How to access health informa tion online Indication:Former smoker Start:14-Oct-2019 Instruction Type:Patient Education How to access health informa tion online - Detail Indication:Former smoker Start:14-Oct-2019 Instruction Type:Patient Education Patient Instructions Indication:Former smoker Start:14-Oct-2019 Instruction Type:Provider Instructions for Treatment How to access health informa tion online Indication:Former smoker Start:11-Oct-2019 Instruction Type:Patient Education How to access health informa tion online - Detail Indication:Former smoker Start:11-Oct-2019 Instruction Type:Patient Education Patient Instructions Indication:Former smoker Start:11-Oct-2019 Instruction Type:Provider Instructions for Treatment How to access health informa tion online Indication:BMI 29.0-29.9,adult Start:13-Sep-2019 Instruction Type:Patient Education How to access health informa tion online - Detail Indication:BMI 29.0-29.9,adult Start:13-Sep-2019 Instruction Type:Patient Education Patient Instructions Indication:BMI 29.0-29.9,adult Start:13-Sep-2019 Instruction Type:Provider Instructions for Treatment How to access health informa tion online Indication:Former smoker Start:27-Aug-2019 Instruction Type:Patient Education How to access health informa tion online - Detail Indication:Former smoker Start:27-Aug-2019 Instruction Type:Patient Education Patient Instructions Indication:BMI 29.0-29.9,adult Start:27-Aug-2019 Instruction Type:Provider Instructions for Treatment How to access health informa tion online Indication:Former smoker Start:06-Aug-2019 Instruction Type:Patient Education How to access health informa tion online - Detail Indication:Former smoker Start:06-Aug-2019 Instruction Type:Patient Education Patient Instructions Indication:BMI 29.0-29.9,adult Start:06-Aug-2019 Instruction Type:Provider Instructions for Treatment How to access health informa tion online Indication:BMI 30.0-30.9,adult Start:02-Aug-2019 Instruction Type:Patient Education How to access health informa tion online - Detail Indication:BMI 30.0-30.9,adult Start:02-Aug-2019 Instruction Type:Patient Education Patient Instructions Indication:BMI 30.0-30.9,adult Start:02-Aug-2019 Instruction Type:Provider Instructions for Treatment How to access health informa tion online Indication:BMI 30.0-30.9,adult Start:06-Apr-2018 Instruction Type:Patient Education How to access health informa tion online - Detail Indication:BMI 30.0-30.9,adult Start:06-Apr-2018 Instruction Type:Patient Education Patient Instructions Indication:BMI 30.0-30.9,adult Start:06-Apr-2018 Instruction Type:Provider Instructions for Treatment How to access health informa tion online Indication:Former smoker Start:08-Dec-2017 Instruction Type:Patient Education How to access health informa tion online - Detail Indication:Former smoker Start:08-Dec-2017 Instruction Type:Patient Education Patient Instructions Indication:Former smoker Start:08-Dec-2017 Instruction Type:Provider Instructions for Treatment How to access health informa tion online Indication:Hypertension Start:28-Aug-2017 Instruction Type:Patient Education How to access health informa tion online - Detail Indication:Hypertension Start:28-Aug-2017 Instruction Type:Patient Education Patient Instructions Indication:Hypertension Start:28-Aug-2017 Instruction Type:Provider Instructions for Treatment How to access health informa tion online Indication:Hypertension Start:26-Jun-2017 Instruction Type:Patient Education How to access health informa tion online - Detail Indication:Hypertension Start:26-Jun-2017 Instruction Type:Patient Education Patient Instructions Indication:Hypertension Start:26-Jun-2017 Instruction Type:Provider Instructions for Treatment Name Dates Details How to Access Health Informa tion Online using Patient Portal and [employer]rd [employer] Apps Indication:Former smoker Start:29-Jun-2020 Instruction Type:Patient Education Patient Instructions Indication:Former smoker Start:29-Jun-2020 Instruction Type:Provider Instructions for Treatment How to Access Health Informa tion Online using Patient Portal and [employer]rd [employer] Apps Indication:Former smoker Start:24-Jun-2020 Instruction Type:Patient Education Patient Instructions Indication:Former smoker Start:24-Jun-2020 Instruction Type:Provider Instructions for Treatment Patient Instructions Indication:Former smoker Start:25-Mar-2020 Instruction Type:Provider Instructions for Treatment How to Access Health Informa tion Online using Patient Portal and [employer]rd [employer] Apps Indication:Former smoker Start:25-Mar-2020 Instruction Type:Patient Education How to Access Health Informa tion Online using Patient Portal and [employer]rd [employer] Apps Indication:Former smoker Start:27-Feb-2020 Instruction Type:Patient Education Patient Instructions Indication:Former smoker Start:27-Feb-2020 Instruction Type:Provider Instructions for Treatment How to access health informa tion online Indication:Former smoker Start:18-Feb-2020 Instruction Type:Patient Education How to access health informa tion online - Detail Indication:Former smoker Start:18-Feb-2020 Instruction Type:Patient Education Patient Instructions Indication:Former smoker Start:18-Feb-2020 Instruction Type:Provider Instructions for Treatment How to access health informa tion online Indication:Former smoker Start:11-Feb-2020 Instruction Type:Patient Education How to access health informa tion online - Detail Indication:Former smoker Start:11-Feb-2020 Instruction Type:Patient Education Patient Instructions Indication:Vitamin B12 deficiency Start:11-Feb-2020 Instruction Type:Provider Instructions for Treatment How to access health informa tion online Indication:Former smoker Start:28-Jan-2020 Instruction Type:Patient Education How to access health informa tion online - Detail Indication:Former smoker Start:28-Jan-2020 Instruction Type:Patient Education Patient Instructions Indication:Former smoker Start:28-Jan-2020 Instruction Type:Provider Instructions for Treatment How to access health informa tion online Indication:BMI 29.0-29.9,adult Start:24-Jan-2020 Instruction Type:Patient Education How to access health informa tion online - Detail Indication:BMI 29.0-29.9,adult Start:24-Jan-2020 Instruction Type:Patient Education Patient Instructions Indication:BMI 29.0-29.9,adult Start:24-Jan-2020 Instruction Type:Provider Instructions for Treatment How to access health informa tion online Indication:BMI 29.0-29.9,adult Start:09-Dec-2019 Instruction Type:Patient Education How to access health informa tion online - Detail Indication:BMI 29.0-29.9,adult Start:09-Dec-2019 Instruction Type:Patient Education Patient Instructions Indication:BMI 29.0-29.9,adult Start:09-Dec-2019 Instruction Type:Provider Instructions for Treatment How to access health informa tion online Indication:Former smoker Start:04-Dec-2019 Instruction Type:Patient Education How to access health informa tion online - Detail Indication:Former smoker Start:04-Dec-2019 Instruction Type:Patient Education Patient Instructions Indication:BMI 29.0-29.9,adult Start:04-Dec-2019 Instruction Type:Provider Instructions for Treatment How to access health informa tion online Indication:Former smoker Start:14-Oct-2019 Instruction Type:Patient Education How to access health informa tion online - Detail Indication:Former smoker Start:14-Oct-2019 Instruction Type:Patient Education Patient Instructions Indication:Former smoker Start:14-Oct-2019 Instruction Type:Provider Instructions for Treatment How to access health informa tion online Indication:Former smoker Start:11-Oct-2019 Instruction Type:Patient Education How to access health informa tion online - Detail Indication:Former smoker Start:11-Oct-2019 Instruction Type:Patient Education Patient Instructions Indication:Former smoker Start:11-Oct-2019 Instruction Type:Provider Instructions for Treatment How to access health informa tion online Indication:BMI 29.0-29.9,adult Start:13-Sep-2019 Instruction Type:Patient Education How to access health informa tion online - Detail Indication:BMI 29.0-29.9,adult Start:13-Sep-2019 Instruction Type:Patient Education Patient Instructions Indication:BMI 29.0-29.9,adult Start:13-Sep-2019 Instruction Type:Provider Instructions for Treatment How to access health informa tion online Indication:Former smoker Start:27-Aug-2019 Instruction Type:Patient Education How to access health informa tion online - Detail Indication:Former smoker Start:27-Aug-2019 Instruction Type:Patient Education Patient Instructions Indication:BMI 29.0-29.9,adult Start:27-Aug-2019 Instruction Type:Provider Instructions for Treatment How to access health informa tion online Indication:Former smoker Start:06-Aug-2019 Instruction Type:Patient Education How to access health informa tion online - Detail Indication:Former smoker Start:06-Aug-2019 Instruction Type:Patient Education Patient Instructions Indication:BMI 29.0-29.9,adult Start:06-Aug-2019 Instruction Type:Provider Instructions for Treatment How to access health informa tion online Indication:BMI 30.0-30.9,adult Start:02-Aug-2019 Instruction Type:Patient Education How to access health informa tion online - Detail Indication:BMI 30.0-30.9,adult Start:02-Aug-2019 Instruction Type:Patient Education Patient Instructions Indication:BMI 30.0-30.9,adult Start:02-Aug-2019 Instruction Type:Provider Instructions for Treatment How to access health informa tion online Indication:BMI 30.0-30.9,adult Start:06-Apr-2018 Instruction Type:Patient Education How to access health informa tion online - Detail Indication:BMI 30.0-30.9,adult Start:06-Apr-2018 Instruction Type:Patient Education Patient Instructions Indication:BMI 30.0-30.9,adult Start:06-Apr-2018 Instruction Type:Provider Instructions for Treatment How to access health informa tion online Indication:Former smoker Start:08-Dec-2017 Instruction Type:Patient Education How to access health informa tion online - Detail Indication:Former smoker Start:08-Dec-2017 Instruction Type:Patient Education Patient Instructions Indication:Former smoker Start:08-Dec-2017 Instruction Type:Provider Instructions for Treatment How to access health informa tion online Indication:Hypertension Start:28-Aug-2017 Instruction Type:Patient Education How to access health informa tion online - Detail Indication:Hypertension Start:28-Aug-2017 Instruction Type:Patient Education Patient Instructions Indication:Hypertension Start:28-Aug-2017 Instruction Type:Provider Instructions for Treatment How to access health informa tion online Indication:Hypertension Start:26-Jun-2017 Instruction Type:Patient Education How to access health informa tion online - Detail Indication:Hypertension Start:26-Jun-2017 Instruction Type:Patient Education Patient Instructions Indication:Hypertension Start:26-Jun-2017 Instruction Type:Provider Instructions for Treatment Name Dates Details How to Access Health Informa tion Online using Patient Portal and [employer]rd [employer] Apps Indication:Former smoker Start:29-Jun-2020 Instruction Type:Patient Education Patient Instructions Indication:Former smoker Start:29-Jun-2020 Instruction Type:Provider Instructions for Treatment How to Access Health Informa tion Online using Patient Portal and [employer]rd [employer] Apps Indication:Former smoker Start:24-Jun-2020 Instruction Type:Patient Education Patient Instructions Indication:Former smoker Start:24-Jun-2020 Instruction Type:Provider Instructions for Treatment Patient Instructions Indication:Former smoker Start:25-Mar-2020 Instruction Type:Provider Instructions for Treatment How to Access Health Informa tion Online using Patient Portal and [employer]rd [employer] Apps Indication:Former smoker Start:25-Mar-2020 Instruction Type:Patient Education How to Access Health Informa tion Online using Patient Portal and [employer]rd [employer] Apps Indication:Former smoker Start:27-Feb-2020 Instruction Type:Patient Education Patient Instructions Indication:Former smoker Start:27-Feb-2020 Instruction Type:Provider Instructions for Treatment How to access health informa tion online Indication:Former smoker Start:18-Feb-2020 Instruction Type:Patient Education How to access health informa tion online - Detail Indication:Former smoker Start:18-Feb-2020 Instruction Type:Patient Education Patient Instructions Indication:Former smoker Start:18-Feb-2020 Instruction Type:Provider Instructions for Treatment How to access health informa tion online Indication:Former smoker Start:11-Feb-2020 Instruction Type:Patient Education How to access health informa tion online - Detail Indication:Former smoker Start:11-Feb-2020 Instruction Type:Patient Education Patient Instructions Indication:Vitamin B12 deficiency Start:11-Feb-2020 Instruction Type:Provider Instructions for Treatment How to access health informa tion online Indication:Former smoker Start:28-Jan-2020 Instruction Type:Patient Education How to access health informa tion online - Detail Indication:Former smoker Start:28-Jan-2020 Instruction Type:Patient Education Patient Instructions Indication:Former smoker Start:28-Jan-2020 Instruction Type:Provider Instructions for Treatment How to access health informa tion online Indication:BMI 29.0-29.9,adult Start:24-Jan-2020 Instruction Type:Patient Education How to access health informa tion online - Detail Indication:BMI 29.0-29.9,adult Start:24-Jan-2020 Instruction Type:Patient Education Patient Instructions Indication:BMI 29.0-29.9,adult Start:24-Jan-2020 Instruction Type:Provider Instructions for Treatment How to access health informa tion online Indication:BMI 29.0-29.9,adult Start:09-Dec-2019 Instruction Type:Patient Education How to access health informa tion online - Detail Indication:BMI 29.0-29.9,adult Start:09-Dec-2019 Instruction Type:Patient Education Patient Instructions Indication:BMI 29.0-29.9,adult Start:09-Dec-2019 Instruction Type:Provider Instructions for Treatment How to access health informa tion online Indication:Former smoker Start:04-Dec-2019 Instruction Type:Patient Education How to access health informa tion online - Detail Indication:Former smoker Start:04-Dec-2019 Instruction Type:Patient Education Patient Instructions Indication:BMI 29.0-29.9,adult Start:04-Dec-2019 Instruction Type:Provider Instructions for Treatment How to access health informa tion online Indication:Former smoker Start:14-Oct-2019 Instruction Type:Patient Education How to access health informa tion online - Detail Indication:Former smoker Start:14-Oct-2019 Instruction Type:Patient Education Patient Instructions Indication:Former smoker Start:14-Oct-2019 Instruction Type:Provider Instructions for Treatment How to access health informa tion online Indication:Former smoker Start:11-Oct-2019 Instruction Type:Patient Education How to access health informa tion online - Detail Indication:Former smoker Start:11-Oct-2019 Instruction Type:Patient Education Patient Instructions Indication:Former smoker Start:11-Oct-2019 Instruction Type:Provider Instructions for Treatment How to access health informa tion online Indication:BMI 29.0-29.9,adult Start:13-Sep-2019 Instruction Type:Patient Education How to access health informa tion online - Detail Indication:BMI 29.0-29.9,adult Start:13-Sep-2019 Instruction Type:Patient Education Patient Instructions Indication:BMI 29.0-29.9,adult Start:13-Sep-2019 Instruction Type:Provider Instructions for Treatment How to access health informa tion online Indication:Former smoker Start:27-Aug-2019 Instruction Type:Patient Education How to access health informa tion online - Detail Indication:Former smoker Start:27-Aug-2019 Instruction Type:Patient Education Patient Instructions Indication:BMI 29.0-29.9,adult Start:27-Aug-2019 Instruction Type:Provider Instructions for Treatment How to access health informa tion online Indication:Former smoker Start:06-Aug-2019 Instruction Type:Patient Education How to access health informa tion online - Detail Indication:Former smoker Start:06-Aug-2019 Instruction Type:Patient Education Patient Instructions Indication:BMI 29.0-29.9,adult Start:06-Aug-2019 Instruction Type:Provider Instructions for Treatment How to access health informa tion online Indication:BMI 30.0-30.9,adult Start:02-Aug-2019 Instruction Type:Patient Education How to access health informa tion online - Detail Indication:BMI 30.0-30.9,adult Start:02-Aug-2019 Instruction Type:Patient Education Patient Instructions Indication:BMI 30.0-30.9,adult Start:02-Aug-2019 Instruction Type:Provider Instructions for Treatment How to access health informa tion online Indication:BMI 30.0-30.9,adult Start:06-Apr-2018 Instruction Type:Patient Education How to access health informa tion online - Detail Indication:BMI 30.0-30.9,adult Start:06-Apr-2018 Instruction Type:Patient Education Patient Instructions Indication:BMI 30.0-30.9,adult Start:06-Apr-2018 Instruction Type:Provider Instructions for Treatment How to access health informa tion online Indication:Former smoker Start:08-Dec-2017 Instruction Type:Patient Education How to access health informa tion online - Detail Indication:Former smoker Start:08-Dec-2017 Instruction Type:Patient Education Patient Instructions Indication:Former smoker Start:08-Dec-2017 Instruction Type:Provider Instructions for Treatment How to access health informa tion online Indication:Hypertension Start:28-Aug-2017 Instruction Type:Patient Education How to access health informa tion online - Detail Indication:Hypertension Start:28-Aug-2017 Instruction Type:Patient Education Patient Instructions Indication:Hypertension Start:28-Aug-2017 Instruction Type:Provider Instructions for Treatment How to access health informa tion online Indication:Hypertension Start:26-Jun-2017 Instruction Type:Patient Education How to access health informa tion online - Detail Indication:Hypertension Start:26-Jun-2017 Instruction Type:Patient Education Patient Instructions Indication:Hypertension Start:26-Jun-2017 Instruction Type:Provider Instructions for Treatment Discharge Instructions * Instructions* Sabi Gresham MD - 06/12/2020 Please follow-up with your doctor and or return to the ED if any worsening symptoms for further management. * Attachments The following attachments cannot be sent through Care Everywhere. * Vertigo (Upper Sor[place]) * Otitis Externa ([place]) documented in this encounter Assessments Diagnosis Vertigo- Primary Dizziness and giddiness Acute diffuse otitis externa of right ear Chief Complaint and Reason for Visit Chief Complaint Admit Date 1 Y FU June 25, 2024 8:20 am E ORDERS June 25, 2024 8:45 am Abd pain September 16, 2024 11:1 0am Reason for Visit Admit Date Atherosclerosis of kenaitze coronary arter y June 25, 2024 8:20am Chest pain June 25, 2024 8:20 am Fatigue June 25, 2024 8:20 am Hypercholesterolemia June 25, 2024 8:2 0am HTN (hypertension) June 25, 2024 8:20 am Chief Complaint xray ELEVATED D DIMER Chief Complaint RT EAR CONGESTION RT EAR PAIN ABNORMAL CXR ABNORMAL CXR Reason for Visit Dysfunction of right eustachian tube BPPV (benign paroxysmal positional vertigo) Hearing loss in right ear Chief Complaint NICOTINE DEP Chief Complaint Admit Date 1 Y FU June 25, 2024 8:20 am E ORDERS June 25, 2024 8:45 am Reason for Referral Specialty Diagnoses / Procedures Referred By Contac t Referred To Contact Radiology Diagnoses 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 angina pectoris Procedures CT cardiac scoring wo IV contrast Diana Randall, DO [address] [facility] [address] [place] [address] Referral ID Status Reason Start Date Expiration Date Visits Requested Visits Authorized [id number] Authorized Perform Procedure 05/18/2023 05/17/2024 1 1 Additional Source Comments (unrecognized sect ion and content) No Status Records FoundNo Status Records FoundNo Status Records FoundNo Status Records FoundNo Status Records Found INFORMATION SOURCE (unrecogn ized section and content) DATE CREATED AUTHOR 09/07/2017 [facility] DATE CREATED AUTHOR AUTHOR'S ORGANIZ ATION 03/07/2021 [facility] DATE CREATED AUTHOR AUTHOR'S ORGANIZ ATION 06/06/2022 [facility] DATE CREATED AUTHOR AUTHOR'S ORGANIZ ATION 05/26/2023 [facility] DATE CREATED AUTHOR AUTHOR'S ORGANIZ ATION 01/20/2025 [facility] Reason for Visit (unrecogniz ed section and content) Reason Comments Dizziness Specialty Diagnoses / Procedures Referred By Contac t Referred To Contact Radiology Diagnoses 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 angina pectoris Procedures CT cardiac scoring wo IV contrast Diana Randall DO [address] [facility] [address] [place] [address] Referral ID Status Reason Start Date Expiration Date Visits Requested Visits Authorized [id number] Authorized Perform Procedure 05/18/2023 05/17/2024 1 1 Jazzmnie Avina CNP - 06/12/2020 4:07 PM Sabi Dawson MD - 06/12/2020 4:06 PM EDT ED Notes (unrecognized secti on and content) Pt c/o dizziness starting today while he was at work. He denies n/v/d or fever. He denies n/t/p. He denies changes in vision or weakness to ext. He denies change in sensation or headache. He does relate PMH vertigo approx 1.5 months ago with right ear/sinus infection. Pt denies CP or SOB. ED PROVIDER NOTE [facility] NAME: Maranda Zhang AGE: 65 y.o. : 1955 VISIT DATE: 06/12/2020 CSN: [id number] PCP: Diana Randall DO Chief Complaint Patient presents with Dizziness HPIPatient is a 65-year-old male history of hypertension presents to the ED complains of dizziness. In the ED patient is awake alert he answers questions appropriately speech is clear no facial droop is noted GCS 15 initial vital systolic blood pressure 172/87 pulse is 89 pulse ox 95% room air afebrile 98.0 Fahrenheit respiratory 16 breaths/min initial GCS is 0 initial NIHSS is 0 no headache but states he has been disease started this morning unsteady on his gait right ear aching fullness noted so few weeks ago when he had the symptoms he was told he had vertigo. His history of CVA FL PE pneumothorax no recent traumas or falls chest pain chest pressure palpitation shortness breath difficulty breathing reported bowel or bladder complaint reported. Past Medical History: Diagnosis Date Arthritis Hypertension Past Surgical History: Procedure Laterality Date BACK SURGERY History reviewed. No pertinent family history. Social History Socioeconomic History Marital status: Single Spouse name: Not on file Number of children: Not on file Years of education: Not on file Highest education level: Not on file Occupational History Not on file Social Needs Financial resource strain: Not on file Food insecurity Worry: Not on file Inability: Not on file Transportation needs Medical: Not on file Non-medical: Not on file Tobacco Use Smoking status: Former Smoker Types: Cigarettes Quit date: 06/12/2010 Years since quittin.0 Smokeless tobacco: Never Used Substance and Sexual Activity Alcohol use: Yes Alcohol/week: 2.0 - 3.0 standard drinks Types: 2 - 3 Cans of beer per week Drug use: Never Sexual activity: Not on file Lifestyle Physical activity Days per week: Not on file Minutes per session: Not on file Stress: Not on file Relationships Social connections Talks on phone: Not on file Gets together: Not on file Attends temple service: Not on file Active member of club or organization: Not on file Attends meetings of clubs or organizations: Not on file Relationship status: Not on file Other Topics Concern Not on file Social History Narrative Not on file No current outpatient medications on file prior to encounter. No Known Allergies Review of Systems All other systems reviewed and are negative. Patient Vitals for the past 24 hrs: BP Temp Temp src Pulse Resp SpO2 Height Weight 06/12/20 1600 (!) 172/87 98 F (36.7 C) Oral 89 16 95 % 5' 8" 89.4 kg (197 lb) Physical Exam Vitals signs and nursing note reviewed. Constitutional: Appearance: Normal appearance. He is well-developed. HENT: Head: Normocephalic and atraumatic. Right Ear: Hearing normal. Tympanic membrane is erythematous. Tympanic membrane is not scarred or perforated. Left Ear: Hearing normal. Tympanic membrane is not scarred or erythematous. Nose: Nose normal. No congestion or rhinorrhea. Mouth/Throat: Mouth: Mucous membranes are moist. Pharynx: No oropharyngeal exudate or posterior oropharyngeal erythema. Eyes: General: No scleral icterus. Right eye: No discharge. Left eye: No discharge. Conjunctiva/sclera: Conjunctivae normal. Neck: Musculoskeletal: Normal range of motion. Cardiovascular: Rate and Rhythm: Normal rate and regular rhythm. Heart sounds: Normal heart sounds. No murmur. No friction rub. Pulmonary: Effort: Pulmonary effort is normal. No respiratory distress. Breath sounds: Normal breath sounds. No stridor. No wheezing or rhonchi. Abdominal: General: Abdomen is flat. Bowel sounds are normal. There is no distension. Palpations: Abdomen is soft. There is no mass. Tenderness: There is no abdominal tenderness. Hernia: No hernia is present. Musculoskeletal: Normal range of motion. Right lower leg: He exhibits no swelling. No edema. Left lower leg: He exhibits no swelling. No edema. Skin: General: Skin is warm. Findings: No rash. Neurological: Mental Status: He is alert and oriented to person, place, and time. Mental status is at baseline. Cranial Nerves: No cranial nerve deficit. Motor: No weakness. Coordination: Coordination normal. Gait: Gait abnormal. Psychiatric: Behavior: Behavior normal. NIH Scale: LOC: 0 - alert LOC Questions: 0 - answers both correctly LOC Commands: 0 - performs both correctly Best gaze: 0 - normal Vision: 0 - no visual loss Facial Palsy: 0 - normal Left arm: 0 - no drift Right arm; 0 - no drift Left le - no drift Right le - no drift Limb ataxia: 0 - absent Sensation: 0 - normal Best language: 0 - no aphasia Dysarthria: 0 - normal articulation Extinction and inattention: 0 - no neglect Stroke Scale: 0 Laboratory & Radiographic Imaging (if done): No results found for this visit on 06/12/20. CT Head Or Brain Without Contrast Preliminary Result 1. No acute intracranial abnormality identified. Please note, CT is insensitive to early ischemia and if there is further clinical concern, MRI is recommended. 2. Age-related atrophy with associated ventricular prominence and periventricular white matter small-vessel disease. Feedtrace[employer] Workstation ID: [id number] Procedures MDM Patient is a 65-year-old male history of hypertension presents to the ED complains of dizziness and unsteady gait for few hours today with no traumas no falls in the ED he is awake alert his speech is clear no facial droop is noted GCS is 15 initial NIHSS [address] brain read by radiology unremarkable for any acute abnormality HEENT exam does note the right ear with external erythema possible surrounding fluids may be the cause of the patient's symptoms versus CVA versus TIA versus vertigo. Meclizine for vertigo and Corticosporin otic for acute otitis externa and encouraged PCP follow-up And or to return to the ED for any worsening symptom further management for further management and he express understanding. . Clinical Impression: No diagnosis found. ED Disposition None Follow-up Information Follow-up information has not been specified. Contact information for after-discharge care Follow-up information has not been specified. Sabi Gresham MD 06/12/20 1719 documented in this encounter Care Teams (unrecognized sec tion and content) Team Status: Active Member Role Status Dates Maria Elena Pulido QUANTITATIVE EQUITY HEAD, QUANTITATIVE EQUITY HEAD-C Family Provider Active Dr. Diana Randall DO Primary Care Provider Active Team Status: Inactive Member Role Status Dates Dr. Diana Randall DO Primary Care Provider Active Dr. Abel Perez MD Attending Provider Active Team Status: Active Member Role Status Dates Dr. Diana Randall DO Primary Care Provider Active Dr. Ambar Vogel MD Attending Provider, Referring Pr ovider Active Team Status: Inactive Member Role Status Dates Dr. Diana Randall DO Primary Care Provider Active Dr. Ambar Vogel MD Attending Provider Active Team Status: Inactive Member Role Status Dates Dr. Diana Randall DO Primary Care Provider Active Dr. Ambar Vogel MD Attending Provider, Referring Pr ovider Active Team Status: Inactive Member Role Status Dates Dr. Diana Randall DO Primary Care Provider, Referr ing Provider Active Aiden Shah PA, PA Attending Provider Active Team Status: Inactive Member Role Status Dates Dr. Diana Randall DO Primary Care Provider, Referr ing Provider Active Breezy Erickson PA, PA Attending Provider Active Team Status: Active Member Role Status Dates Dr. Diana Randall DO Primary Care Pr ovider, Referring Provider, Other Provider Active Dr. Aaron Luz , Attending Provider Active Team Status: Inactive Member Role Status Dates Dr. Diana Randall DO Primary Care Pr ovider, Attending Provider, Referring Provider Active Aircraft Captain Relationship Specialty Start Date End Date Diana Randall DO [address] [address] PCP - General Internal Medicine 05/18/23 Team Status: Inactive Member Role Status Dates Dr. Diana Randall DO Primary Care Provider Active Start: June 25, 2024 End: June 25, 2024 Dr. Diana Randall DO Referring Provider Active Start: June 25, 2024 End: June 25, 2024 Maritza Howard QUANTITATIVE EQUITY HEAD, QUANTITATIVE EQUITY HEAD-C Attending Provider Active Start: June 25, 2024 End: June 25, 2024 Team Status: Inactive Member Role Status Dates Dr. Diana Randall DO Primary Care Provider Active Start: June 25, 2024 End: June 25, 2024 Maritza Howard NP, QUANTITATIVE EQUITY HEAD-C Attending Provider Active Start: June 25, 2024 End: June 25, 2024 Maritza Howard NP, QUANTITATIVE EQUITY HEAD-C Referring Provider Active Start: June 25, 2024 End: June 25, 2024 Team Status: Active Member Role/Relationship Status Dates Dr. Diana Randall DO Primary Care Provider Active Team Status: Inactive Member Role/Relationship Status Dates Dr. Diana Randall DO Primary Care Provider Active Start: June 25, 2024 End: June 25, 2024 Dr. Diana Randall DO Referring Provider Active Start: June 25, 2024 End: June 25, 2024 Maritza Howard QUANTITATIVE EQUITY HEAD, QUANTITATIVE EQUITY HEAD-C Attending Provider Active Start: June 25, 2024 End: June 25, 2024 Team Status: Inactive Member Role/Relationship Status Dates Dr. Diana Randall DO Primary Care Provider Active Start: June 25, 2024 End: June 25, 2024 Maritza Howard NP, QUANTITATIVE EQUITY HEAD-C Attending Provider Active Start: June 25, 2024 End: June 25, 2024 Maritza Howard NP, QUANTITATIVE EQUITY HEAD-C Referring Provider Active Start: June 25, 2024 End: June 25, 2024 Team Status: Inactive Member Role/Relationship Status Dates Dr. Diana Randall DO Primary Care Provider Active Start: September 16, 2024 End: September 16, 2024 Dr. Desmond Vieira DO Emergency Provider Activ e Start: September 16, 2024 End: September 16, 2024 Goals (unrecognized section and content) Goals may be documented in a n alternate sectionGoals may be documented in an alternate sectionGoals may be documented in an alternate sectionGoals may be documented in an alternate sectionGoals may be documented in an alternate sectionGoals may be documented in an alternate section FOR RECORDS PERTAINING TO PATIENTS WHO ARE OR HAVE BEEN ENROLLED IN A CHEMICAL DEPENDENCY/SUBSTANCEABUSE PROGRAM, SOME INFORMATION MAY BE OMITTED. This clinical summary was aggregated from multiple sources. Caution should be exercised in using it in the provision of clinical care. This summary normalizes information from multiple sources, and as a consequence, information in this document may materially change the coding, format and clinical context of patient data. In addition, data may be omitted in some cases. CLINICAL DECISIONS SHOULD BE BASED ON THE PRIMARY CLINICAL RECORDS. [facility]. provides no warranty or guarantee of the accuracy or completeness of information in this document.
--- NOTE | 2025-02-11 18:28 | STRESSREP_ITS ---
Stress Test Report Exercise myocardial perfusion stress test. 70-year-old man with a history of abnormal chest CT. Stress protocol: Resting EKG demonstrates normal sinus rhythm with a rate of 62 bpm resting blood pressure is 136/78 mmHg. The patient exercised according to the regular Daniel protocol for a total duration of 7 minutes and 41 seconds attaining a maximum heart rate of 141 bpm which was 93% of maximum predicted heart rate; the maximum workload was 10.4 metabolic equivalents. At rest there were no ST or T wave changes noted to suggest ischemia and at peak exercise upsloping ST changes only were noted which did not meet the criteria for ischemia. No clinical angina was noted the test was terminated due to the target heart rate being achieve d/fatigue. The peak blood pressure was 196/93 mmHg. Rate-pressure product was 27,200. Myocardial perfusion protocol. 13.6 mCi of technetium 99m sestamibi was injected at rest. The patient exercised according to regular Daniel protocol for total duration of 7 minutes and 41 seconds and at peak exercise 40 mCi of technetium 99m sestamibi was injected stress images were obtained stress and rest images were reconstructed in comparing the short axis vertical long and horizontal long axis. Gated images were also obtained. Perfusion SPECT analysis: Review of the stress images demonstrate normal uptake of tracer noted in all areas of the myocardium. The resting images similarly demonstrate normal uptake of tracer noted in all areas of the myocardium. No areas of reversibility are noted to suggest ischemia no previous infarct was noted. Gated SPECT analysis: The gated ejection fraction is 68%. Conclusion: Normal exercise myocardial perfusion stress test at a high workload.
== END | disposition home or self-care (01) ==
LOC: CVS 06:45
PROVIDERS: PCP Internal Medicine; Referring Provider Nurse Practitioner Gerontology; Visit Provider Nurse Practitioner Gerontology
DX: R07.9 Chest pain, unspecified (principal); R91.8 Other nonspecific abnormal finding of lung field
CPT/HCPCS: 78452; 93017; A9500; A4216